=== PATIENT | female | born 1940 | race Caucasian/White ===

== ENCOUNTER → 2018-10-12 | Outpatient (CLI) | payer MEDICARE, SELFPAY ==
--- NOTE | 2018-10-12 14:22 | US_ITS ---
STUDY: ABDOMINAL ULTRASOUND - RIGHT UPPER QUADRANT REASON FOR VISIT: Female, 77 years old. Abdominal pain TECHNIQUE: Ultrasound evaluation of the right upper quadrant was performed with real-time and static keenan-scale imaging. TECHNICAL QUALITY: Adequate. COMPARISON: Renal scintigraphy 06/14/2016 FINDINGS: Liver: The liver measures 10.6 cm. There is normal echogenicity of the liver. The bile ducts are within normal limits. There is hepatic color flow. The direction of portal flow is hepatopetal. There is no demonstrated mass lesion. Gallbladder: Normal distended gallbladder. The gallbladder wall measures 2 mm. There is a negative sonographic Coelho's sign. There is no pericholecystic fluid. There are gallbladder polyps. Common Bile Duct (C.B.D.): The common bile duct measures 4 mm. Pancreas: Normal size of the head, body and tail of the pancreas. There is normal echogenicity of the pancreas. There is no demonstrated pancreatic mass or cyst. Right Kidney: Normal size of the right kidney. The right kidney measures 11.1 cm. Normal renal cortex. The right cortex measures 1.6 cm. There is no demonstrated renal mass or cyst. There is an extra-renal pelvis of the right kidney. There is no distention of the renal calyces. US/Gallbladder IMPRESSION: 1. Cholesterolosis. Electronically Signed: Oscar Tabares MD at 15:41 EDT Tel , Service support ,
== END | disposition home or self-care (01) ==
PROVIDERS: Family Provider Internal Medicine; PCP Internal Medicine; Referring Provider Nurse Practitioner Gerontology; Visit Provider Nurse Practitioner Gerontology
DX: R10.11 Right upper quadrant pain (principal)
CPT/HCPCS: 76705

== ENCOUNTER 2018-10-19 08:23 | Day surgery (SDC) | payer MEDICARE, SELFPAY ==
[2018-10-16 15:39] VITALS: BMI 27.3
--- NOTE | 2018-10-19 08:26 | PCM.HP.BLA ---
History and Physical Date of Admission: 10/19/18 Intake Vital Signs 10/16/18 Body Mass Index (BMI) 27.3 Intake Visit Reasons: RUQ pain Chief Complaint: RUQ pain, second opinion Consultant Internship Required: No Is patient in pain?: No Allergies omnipaque dyes for xrays Allergy (Unknown, Uncoded 10/15/18 14:00) Unknown Medications Lactobacillus rhamnosus GG 10 billion cell-inulin 200 mg capsule cap PO DAILY cap 10/15/18 [History Confirmed 10/16/18] echinacea 400 mg capsule 400 mg PO TID 10/15/18 [History Confirmed 10/16/18] ibuprofen 200 mg tablet 200 mg PO Q6H 10/15/18 [History Confirmed 10/16/18] lutein 40 mg capsule 120 mg PO DAILY cap 10/15/18 [History Confirmed 10/16/18] omega-3 fatty acids 1,000 mg capsule 1,000 mg PO DAILY 10/15/18 [History Confirmed 10/16/18] Is last menstrual period known: No Post menopausal: Yes Patient : No PFSH Medical History (Updated 10/16/18 @ 15:40 by Rufina Lopes) Gallbladder polyp (Acute) Cholesterolosis (Acute) Acid reflux (Acute) Diarrhea (Acute) Nausea & vomiting (Acute) Abdominal pain (Acute) Sleep apnea (Acute) Arthritis (Acute) History of back problems (Acute) Surgical History (Updated 10/16/18 @ 15:40 by Rfuina Lopes) History of colonoscopy (Acute) history excision colon polyps (Acute) History of arthroscopy of left knee (Acute) Family History (Updated 10/16/18 @ 15:38 by Rufina Lopes) Father Cancer prostate Brother Cancer brain Seizures Mother Colon cancer Social History (Updated 10/16/18 @ 16:21 by Kasia Petit MD) Smoking Status: Never smoker alcohol intake: never substance use type: does not use HPI HPI HPI: MARY GALLEGOS, is a 77 F who presents to the office today for right upper quadrant pain, nausea and vomiting. Patient states that on 10/09/2018Friday patient had decreased appetite and had nausea and vomiting and right upper quadrant pain about 8 or 9:00 at night. Patient rated the pain be a 7?8/10 at that time. Patient has been unable to sleep well due to the nausea and pain. Patient states she was previously on PPI however has been off for months as she ran out and has had a other things going on were she did not get it refilled. Patient also states that on Friday she had some liquid stool with red particles she is unsure exactly what the red particles were as they were floating she is not seeing any other blood in her stool but she did have some black stools prior to starting the Pepto-Bismol a week or so ago. Patient has been taking Pepto-Bismol to help with the nausea and vomiting. Patient did just recently start omeprazole 20 mg p.o. twice daily [id number], just started yesterday. Patient currently states her pain is dull but rates it a 5?6/10. Patient does states she is able to drink water and stay hydrated but has nausea and vomiting right after eating and at night. Patient's ultrasound showed a normal gallbladder wall, no pericholecystic fluid, 1 or 2 gallbladder polyps which look to measure less than 2 mm and a common bile duct of 4 mm. HPI HPI HPI: MARY GALLEGOS, is a 77 F who presents to the office today for ROS General General: Yes fatigue; no weight change, appetite, colon cancer, breast cancer or weakness HEENT HEENT: No difficulty swallowing, eye injury, eye surgery, swollen glands or hoarseness Endo Endocrine: No thyroid disease, diabetes mellitus, thyroid cancer, Hair loss, heat intolerance or cold intolerance Skin Skin: No rash or changing moles Breast Breast: No left breast lump, right breast lump, nipple discharge, breast pain, abnormal mammogram, abnormal US or breast enlargement Musc Musculoskeletal: Yes back problems and arthritis; no rheumatoid arthritis, gout or joint pain Cardio Cardiovascular: No murmur, pacemaker, heart disease, atrial fibrillation, high blood pressure, heart attack, heart stent, palpitations, shortness of breat with exertion or chest pain Psych Psychiatric: Yes depression and anxiety; no hearing voices Resp Respiratory: No shortness of breath, Yes sleep apnea, No cough, No COPD, No asthma, No emphysema, No wheezing Gastro Gastrointestinal: Yes abdominal pain, Yes nausea or vomiting, Yes diarrhea, Yes constipation, No blood in stool, Yes acid reflux, No hemorrhoids, No ulcers, Yes gallbladder problem, No black,tarry stools Dell Hematologic: No blood thinners, No blood disorders, No bleeding, No anemia, No blood clots Neuro Neurologic: No weakness Exam Const General: cooperative, comfortable, no acute distress Chest Breast Palpation: No nipple discharge Resp Effort & Inspection: normal respiratory effort Cardio Rate: regular rate Heart Sounds: no murmurs GI Inspection: non-distended, scar (Previous midline incision well healed) Palpation: soft, no guarding, no hernias, tender (Epigastric and right upper quadrant) Assessment & Plan Problems 1. RUQ pain R10.11 2. Epigastric pain R10.13 3. GERD (gastroesophageal reflux disease) K21.9 4. Melena K92.1 Plan I have discussed the above with the patient. I have offered the patient EGD for evaluation. I have explained the risks/benefits of the procedure and described the procedure. I have discussed the risks with the patient, including but not limited to: infection, bleeding, perforation of the GI tract requiring emergency surgery, inability to complete the procedure, injury to any internal organs, complications of anesthesia, etc. - the patient understands and agrees to proceed. I have answered all the patient's questions to the patient's satisfaction and the patient has no further questions. Discussed with patient and her friend who accompanied her that I recommend her continuing the omeprazole 20 mg twice daily or 40 mg daily also discussed that she could try Pepcid 20 mg daily or twice daily for the first 2 days until the omeprazole is more effective. Patient is agreeable plan. Did review the ultrasound of the gallbladder with the patient and her friend and discussed the findings did not warrant cholecystectomy currently as her polyps are less than 2 mm in size. Discussed that the polyps are greater than a centimeter near centimeter cholecystectomy could be done to make sure they were not cancerous. Also patient's symptoms do not really fit with gallbladder even though she does have some right upper quadrant pain she also has epigastric pain on exam and she had a history of black stool prior to taking the Pepto-Bismol which again would question whether she had gastritis or ulcer. Greater than 50% of direct patient contact was spent in counseling or coordination of care. I spent 25 minutes counseling the patient and coordinating care. Kasia Petit M.D. Pager: [phone] [facility] [address] [place] [address], [address] [place] [address] Office: [phone] Orders Orders: EGD Today Plan Detail Follow Up Will schedule EGD Diagnoses RUQ pain R10.11 Epigastric pain R10.13 GERD (gastroesophageal reflux disease) K21.9 Melena K92.1 Time Spent (min) 45 10/16/18 1622 <Electronically signed by Kasia Petit MD> Date Kasia Petit MD
[2018-10-19 08:48] VITALS: BP 159/76; PULSE 74; RESP 14; TEMP 37; O2SAT 99; BMI 26.6
--- NOTE | 2018-10-19 09:45 | EGD_PTH ---
PATIENT: MARY GALLEGOS LOC: EN U#:[id number] AGE/SX: 77/F ROOM: RE10/19/[address]: Dr. Kasia Petit MD : 1940 BED: DIS: 10/19/2018 SPEC #: [id number] RECD: 10/19/18 11:05 STATUS: [place] REJorge Luis #: [id number] HI: 10/19/18 09:[address]: Kasia Petit DEPT: SURGICAL PATHOLOGY RECD BY: Ena Holley ENTERED: 10/19/18 11:48 SP TYPE: EGD BIOPSY OT DR: Dr. Andria Narayan DO Tissues: A - Gastric mucous membrane B - Esophageal mucous membrane Procedures: Special Stain Group II Surgery Specimen Level IV Alcian Blue/PAS (control) HEADER OPERATION: GED ([facility]) PRE-OP DIAGNOSIS: Right upper quad pain TISSUE SUBMITTED: A. Antrum biopsy for H. pylori, B. GE junction biopsy MICROSCOPIC DIAGNOSIS A. Gastric antrum, biopsy: Mild chronic gastritis. See comment. B. Gastroesophageal junction, biopsy: Mild chronic inflammation. No evidence of dysplasia. No evidence of goblet cell metaplasia. See comment. AM:lory 10/20/18 COMMENT A. The results of immunohistochemistry for Helicobacter pylori will be reported separately ([id number]). B. Alcian blue/PAS stain with matched control supports the above diagnosis. MICROSCOPIC DESCRIPTION Slides are reviewed. GROSS DESCRIPTION A - Received in fixative is one container labeled with the patient's name and designated antrum biopsy. The specimen consists of one irregular fragment of light ty soft tissue that measures 0.4 x 0.3 x 0.1 cm. The specimen is totally submitted in one cassette. B - Received in fixative is one container labeled with the patient's name and designated GE junction biopsy. The specimen consists of one irregular fragment of light ty soft tissue that measures 0.2 x 0.2 x 0.1 cm. The specimen is totally submitted in one cassette. / SJ:lory 10/19/18 TC:3 CPT: 54960 x2, 62262
--- NOTE | 2018-10-19 09:45 | IMM_PTH ---
PATIENT: MARY GALLEGOS LOC: EN U#:[id number] AGE/SX: 77/F ROOM: RE10/19/[address]: Dr. Kasia Petit MD : 1940 BED: DIS: 10/19/2018 SPEC #: [id number] RECD: 10/19/18 11:54 STATUS: [place] REQ #: [id number] HI: 10/19/18 09:[address]: Kasia Petit DEPT: IMMUNOHISTOCHEMISTRY RECD BY: Cony Burgos ENTERED: 10/19/18 11:54 SP TYPE: IMMUNO OTHR DR: Dr. Andria Narayan, Tissues: A - Stomach, NOS Procedures: H Pylori (initial) PHYSICIAN & INSTITUTION [place] [address] SPECIMEN INFORMATION: Tissue Source: A - Antrum biopsy Clinical Info: Right upper quadrant pain Specimen Number: [id number] CPT code: 29398 METHODOLOGY: Deparaffinized sections of prefer/formalin-fixed tissue or PAP/DQ stained slides are incubated with monoclonal/polyclonal antibodies/oligonucleotide probes. Localization is made via biotin free immunoperoxidase method. Appropriate controls are performed and reacted as expected. Results on target cell population are indicated in the following table: RESULTS: ANTIBODY / CLONE RESULT Block A H Pylori (polyclonal) negative These tests were developed and their performance characteristics determined by [facility]. They may not have been cleared or approved by the U.S. Food and Drug Administration. The FDA has determined that such clearance or approval is not necessary. INTERPRETATION: A. Antrum biopsy: Negative for Helicobacter pylori organisms. AM:lory 10/20/18
[2018-10-19 09:48] VITALS: BP 142/74; BP 159/76; PULSE 67; RESP 16; TEMP 36.2; O2SAT 98
[2018-10-19 09:50] VITALS: BP 123/64; BP 159/76; PULSE 66; RESP 16; O2SAT 98
--- NOTE | 2018-10-19 09:51 | OP.ENDO_ITS ---
10/19/2018 Andria Narayan [address] [place] [address] [place] [address] Re : Upper GI endoscopy procedure for Ruthie Li Dear Dr. Narayan This procedure was performed on Friday, October 19, 2018. My impressions and recommendations are as follows: Impressions : - 4 cm hiatal hernia. - Z-line irregular, 34 cm from the incisors. Biopsied. - Erythematous mucosa in the antrum. Biopsied. - Normal first portion of the duodenum and second portion of the duodenum. Recommendations : - Await pathology results. - Discharge patient to home. - Continue present medications. - Use Prilosec (omeprazole) 20 mg PO BID. My findings are described in the full procedure note, which is enclosed. If I can be of further assistance, please feel free to contact me at Doctor phone number(s): , Work: . Sincerely, MD Kasia Busby MD 10/19/2018 9:51:32 AM This report has been signed electronically.
[2018-10-19 09:55] VITALS: BP 120/71; BP 159/76; PULSE 78; RESP 16; O2SAT 98
[2018-10-19 10:00] VITALS: BP 112/61; BP 159/76; PULSE 68; RESP 16; O2SAT 97
[2018-10-19 10:08] VITALS: BP 159/76
== END 2018-10-19 10:40 | disposition home or self-care (01) ==
LOC: EN 08:24 → AC 08:26
PROVIDERS: Family Provider Internal Medicine; PCP Internal Medicine; Referring Provider Internal Medicine; Visit Provider Surgery
PROC: 0DJ08ZZ Inspection of Upper Intestinal Tract, Via Natural or Artificial Opening Endoscopic (ICD-10-PCS; CPT 43235; principal; 2018-10-19 09:40)
DX: K29.50 Unspecified chronic gastritis without bleeding (principal); K44.9 Diaphragmatic hernia without obstruction or gangrene; K21.9 Gastro-esophageal reflux disease without esophagitis; M19.90 Unspecified osteoarthritis, unspecified site; G47.30 Sleep apnea, unspecified; Z87.19 Personal history of other diseases of the digestive system; Z78.0 Asymptomatic menopausal state
CPT/HCPCS: 43239; 88305; 88313; 88342; J7120

== ENCOUNTER → 2018-10-26 | Outpatient (CLI) | payer MEDICARE, SELFPAY ==
[2018-10-19 08:48] VITALS: BMI 26.6
--- NOTE | 2018-10-26 11:13 | NM_ITS ---
CLINICAL: 77-year-old female with reported history of abdominal pain and nausea. RADIONUCLIDE HEPATOBILIARY SCINTIGRAPHY COMPARISON: Abdominal ultrasound report 10/12/2018 FINDINGS: Following the intravenous administration of 5.6 mCi of 99m Tc Mebrofenin, hepatobiliary images reveal: 1. Relatively prompt and homogeneous radiopharmaceutical concentration is noted by the liver parenchyma. The left lobe appears prominent in size. No parenchymal defects are identified. 2. Gallbladder activity is identified at 10 minutes post radiopharmaceutical administration. 3. Small intestinal tract is not visualized during 60 minutes of pre-CCK sequential imaging. Small bowel activity is identified following the administration of cholecystokinin. 4. Washout of the radiopharmaceutical by the hepatic parenchyma appears qualitatively normal. Cholecystokinin (0.02 ug/kg) was administered intravenously over a 30-minute period. The post CCK gallbladder ejection fraction calculated at 20 minutes following Cholecystokinin administration was noted to be 16.0 % (normal greater than 35%). There is refilling of the gallbladder identified following CCK provision. NH/Hepatobilliary Img w/Pharm Int IMPRESSION: 1. ABNORMAL 99m Tc Mebrofenin hepatobiliary imaging examination with Cholecystokinin. A. A gallbladder ejection fraction calculated to be less than 35% following the administration of Cholecystokinin is consistent with the presence of functional hepatobiliary disease (gallbladder and/or sphincter of Oddi dyskinesia) and/or organic hepatobiliary disease (chronic acalculous cholecystitis and/or cystic duct syndrome) in patients with intermediate to high pretest likelihoods of hepatobiliary illness. (Oniel Pak et al, Journal of Nuclear Medicine 32:1695, 1990). B. 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 Correlation with Sphincter of Oddi manometry is recommended. Electronically Signed: Oscar Valladares DO at 22:00 EDT Tel , Service support ,
== END | disposition home or self-care (01) ==
LOC: NM 11:12
PROVIDERS: Family Provider Internal Medicine; PCP Internal Medicine; Referring Provider Surgery; Visit Provider Surgery
DX: R10.9 Unspecified abdominal pain (principal); R11.2 Nausea with vomiting, unspecified
CPT/HCPCS: 78227; A9537; J2805

== ENCOUNTER 2018-11-11 11:06 | Day surgery (SDC) | payer MEDICARE, SELFPAY ==
--- NOTE | 2018-11-02 03:31 | HP_ITS ---
Intake Vital Signs 11/02/18 Body Mass Index (BMI) 26.6 11/02/18 Height 5 ft 5 in 11/02/18 Weight: 165 lb 11/02/18 Body Mass Index (BMI) 27.4 11/02/18 Blood Pressure 173/86 H 11/02/18 Blood Pressure Location Rt brachial 11/02/18 Respiratory Rate 16 11/02/18 Pulse Rate 64 11/02/18 Pulse Source Monitor 11/02/18 Temperature 98.2 F 11/02/18 Temperature Source Oral 11/02/18 Pulse Ox 97 11/02/18 Oxygen Delivery Method room air Intake Visit Reasons: F/U Test Results HIDA Scan Chief Complaint: RUQ pain, second opinion Robotic Machine Operator Required: No Is patient in pain?: No Allergies codeine Adverse Reaction (Verified 11/02/18 14:47) Nausea/Vom/Diarrhea omnipaque dyes for xrays Allergy (Intermediate, Uncoded 11/02/18 14:47) Hives Medications echinacea 400 mg capsule 400 mg PO PRN PRN 10/15/18 [History Confirmed 11/02/18] ibuprofen 200 mg tablet 200 mg PO PRN PRN 10/15/18 [History Confirmed 11/02/18] lutein 40 mg capsule 120 mg PO DAILY cap 10/15/18 [History Confirmed 11/02/18] omega-3 fatty acids 1,000 mg capsule 1,000 mg PO DAILY 10/15/18 [History Confirmed 11/02/18] Calcium Carb/Vitamin D3/Vit K1 [Calcium + D Soft Chewable Tab] 1 ea PO DAILY 10/19/18 [History Confirmed 11/02/18] Multivitamin with Minerals [Multiple Vitamin] 1 ea PO DAILY 10/19/18 [History Confirmed 11/02/18] Omeprazole 40 mg PO DAILY 10/19/18 [History Confirmed 11/02/18] dicyclomine 20 mg tablet 20 mg PO BID #28 tab 10/21/18 [Rx Confirmed 11/02/18] PFSH Medical History Gallbladder polyp (Acute) Cholesterolosis (Acute) Acid reflux (Acute) Diarrhea (Acute) Nausea & vomiting (Acute) Abdominal pain (Acute) Sleep apnea (Acute) Arthritis (Acute) History of back problems (Acute) Surgical History History of colonoscopy (Acute) history excision colon polyps (Acute) History of arthroscopy of left knee (Acute) 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 Patient had an abnormal HIDA scan with ejection fraction 16% (normal 35% or greater) and there is also some refilling of the gallbladder question if there could be an issue with sphincter of Oddi as well. Patient states she still does get some nausea as well as right upper quadrant pain after eating she states the pain can be a 5?6/10 can be crampy she does occasionally also have vomiting she did vomit last Friday. Patient states she is able to eat some stuff without issues and others does cause the discomfort and nausea. Patient states the Bentyl has been helping somewhat this and she is also been taking the omeprazole as well. ROS General General: Yes fatigue; no weight change, colon cancer, breast cancer or weakness HEENT HEENT: No difficulty swallowing, eye injury, eye surgery, swollen glands or hoarseness Endo Endocrine: No thyroid disease, diabetes mellitus, thyroid cancer, Hair loss, heat intolerance or cold intolerance Skin Skin: No rash or changing moles Musc Musculoskeletal: Yes back problems and arthritis; no rheumatoid arthritis, gout or joint pain Cardio Cardiovascular: No murmur, pacemaker, heart disease, atrial fibrillation, high blood pressure, heart attack, heart stent, palpitations, shortness of breat with exertion or chest pain Psych Psychiatric: Yes depression and anxiety; no hearing voices Resp Respiratory: No shortness of breath, Yes sleep apnea, No cough, No COPD, No asthma, No emphysema, No wheezing Gastro Gastrointestinal: Yes abdominal pain, Yes nausea or vomiting, Yes diarrhea, Yes constipation, No blood in stool, Yes acid reflux, No hemorrhoids, No ulcers, Yes gallbladder problem, No black,tarry stools Dell Hematologic: No blood thinners, No blood disorders, No bleeding, No anemia, No blood clots Neuro Neurologic: No weakness Exam Const General: cooperative, comfortable, no acute distress Resp Effort & Inspection: normal respiratory effort Cardio Rate: regular rate Heart Sounds: no murmurs GI Inspection: non-distended Palpation: soft, no guarding, tender (RUQ/epigastric/LUQ>RLQ, no PS) Psych Affect: normal affect Assessment & Plan Problems 1. Biliary dyskinesia K82.8 2. GERD (gastroesophageal reflux disease) K21.9 3. RUQ pain R10.11 4. Epigastric pain R10.13 Plan Did review patient's HIDA scan with her showed ejection fraction of 16% which is lower than the normal of 35%. Also discussed that there could be some questionable sphincter of oddi dysfunction as well; however, since she does have an abnormal ejection fraction it is reasonable to take out the gallbladder. Discussed with patient I cannot guarantee that this will improve all of her symptoms. She does state that the Bentyl does seem to help some with the discomfort and nausea as well as the omeprazole. Reviewed the anatomy with the patient and discussed the procedure: laparoscopic cholecystectomy with cholangiograms, possible open. Discussed that due to her previous midline incision would need to enter into the abdomen using the Visiport technique in the right upper quadrant in the case may take a little bit longer due to previous adhesions. Review risks including but not limited to bleeding, infection, hernia, bile leak, retained gallstones requiring another procedure ERCP- Endoscopic Retrograde Cholangiopancreatography, injury to another organ (bile ducts, common bile duct, small bowel, etc.) which may require transfer to tertiary facility and conversion to an open procedure. All questions were answered. Kasia Petit M.D. Pager: [phone] [facility] [address] [place] [address], [facility], [address] [place] [id number] Office: [phone] Plan Detail Follow Up will schedule lap malou Coding Level of Care Code Off vis,est,level 3 Diagnoses Biliary dyskinesia K82.8 GERD (gastroesophageal reflux disease) K21.9 RUQ pain R10.11 Epigastric pain R10.13 07/29/19 1532 <Electronically signed by Kasia Sethi am, MD> Date _ Kasia Petit MD I have re-examined the patient. There are no clinical changes since date of exam.
[2018-11-02 14:47] VITALS: BMI 26.6
[2018-11-05 11:50] VITALS: BP 168/77; PULSE 65; RESP 14; TEMP 36.9; O2SAT 99; BMI 26.7
[2018-11-05 12:07] LABS: Hematocrit 38.2 % (37-47); Hemoglobin 12.3 g/dL (12.0-15.0); Mean Corp Hgb Conc 32.2 g/dL (32-36); Mean Corpuscular Hgb 29.1 pg (27.0-32.0); Mean Corpuscular Volume 90.3 fL (81-99); Mean Platelet Vol. 10.3 fl (6.2-12.0); Platelet Count 213 K/mm3 (150-450); RBC Distribution Width CV 13.6 % (11.6-14.6); RBC Distribution Width SD 45.2 fl (35.1-43.9); Red Blood Count 4.23 M/mm3 (4.2-5.4); White Blood Count 5.7 K/mm3 (4.4-11.0)
[2018-11-05 12:13] LABS: AST(SGOT) 28 U/L (15-37); Alanine Aminotransfer ALT/SGPT 25 U/L (13-56); Albumin, Serum 3.9 g/dL (3.2-5.0); Alkaline Phosphatase 82 U/L (45-117); Bilirubin, Direct 0.13 mg/dL (0.00-0.30); Globulin 3.8 g/dL (2.2-4.2); Protein, Total 7.7 g/dL (6.4-8.2)
--- NOTE | 2018-11-05 13:41 | PN_ITS ---
Progress Note Preoperative EKG did show small ischemia with T wave inversion, unable to locate another EKG when patient previously had her open sigmoidectomy in 2017 at [facility] only had a rhythm strip online. Patient did the meantime go to [facility] question whether she was having a heart attack they did do a cardiac work-up there EKG did show some ST depression but no T wave inversion. Discussed with family that we will avoid plan to cancel surgery today for cardiac work-up. Patient denies any chest pain; however her abdominal pain has not always been consistent, patient is on omeprazole which initially states that help and then she was having some crampy abdominal pain after eating so she was also placed on Bentyl which again she states helped some. But her HIDA did show ejection fraction of 16%. Did place a consult to cardiology Dr. Anne as the patient would like to talk to them today if possible, he was agreeable to see her in [place]. Did okay to be discharged per surgery standpoint, if cardiology agreeable.
--- NOTE | 2018-11-05 15:35 | CON.PCM_ITS ---
Problem List (1) Abnormal EKG Status: Acute Reason for Consult Date of Consultation: 11/05/18 History of Present Illness: The patient is a 78 year old F [coming to the hospital for elective cholecystectomy. Preop EKG was abnormal and cardiology consult was requested. Patient denies any chest pain, shortness of breath etc. She does get heartburn which begins with discomfort in the right upper quadrant after she eats. She is physically very active and can easily walk 2 miles without any problems. She does not get any discomfort, shortness of breath etc she walks. Review of systems: All systems reviewed. All else is negative except that in th e HPI] Past Medical History Allergies/Adverse Reactions: Allergies iohexol Allergy (Verified 11/04/18 15:01) Hives codeine Adverse Reaction (Verified 11/02/18 14:47) Nausea/Vom/Diarrhea omnipaque dyes for xrays Allergy (Intermediate, Uncoded 11/05/18 11:50) Hives Home Medications: Ambulatory Orders Medication Instructions Recorded echinacea 400 mg capsule 400 mg PO PRN PRN 10/15/18 ibuprofen 200 mg tablet 200 mg PO PRN PRN 10/15/18 lutein 40 mg capsule 120 mg PO DAILY cap 10/15/18 omega-3 fatty acids 1,000 mg 1,000 mg PO DAILY 10/15/18 capsule Calcium Carb/Vitamin D3/Vit K1 1 ea PO DAILY 10/19/18 [Calcium + D Soft Chewable Tab] Multivitamin with Minerals 1 ea PO DAILY 10/19/18 [Multiple Vitamin] Omeprazole 40 mg PO DAILY 10/19/18 dicyclomine 20 mg tablet 20 mg PO BID #28 tab 10/21/18 Sertraline HCl [Zoloft] 50 mg PO DAILY 11/04/18 Past Medical History (Chronic Problems): Chronic Problems (Last Updated 11/05/18 @ 11:55 by Kasia Petit MD) History of open sigmoidectomy (Chronic) - *Family History Maternal Family History: Family History (Last Reviewed 11/02/18 @ 14:46 by Gerri Obando) Father Cancer Brother Cancer Seizures Mother Colon cancer History Items: Cancer Smoking Status: Never smoker Objective: Vital Signs Temp Pulse Resp BP Pulse Ox 98.4 F 65 14 168/77 H 99 11/05/18 11:50 11/05/18 11:50 11/05/18 11:50 11/05/18 11:50 11/05/18 11:50 Oxygen Delivery Method Room Air Weight: 155 lb 13.869 oz Body Mass Index (BMI) 26.7 General: Awake, Alert, Oriented x 3 HEENT: PERRL, EOMI, Sclera Non Icteric Neck: Supple, Good ROM, No Lymph Node Enlargement Lungs: Clear to auscultation Cardiovascular: Regular Rhythm, Normal S1, Normal S2, No Murmurs, No Rubs, No Gallops Abdomen: Soft Skin: No Rashes Psych/Mental Status: Appropriate 11/05/18 11:45: WBC 5.7, RBC 4.23, Hgb 12.3, Hct 38.2, MCV 90.3, MCH 29.1, MCHC 32.2, Plt Count 213, MPV 10.3 11/05/18 11:45: Total Bilirubin 0.50, Direct Bilirubin 0.13 11/05/18 11:45: Troponin I < 0.015 Rhythm: EKG: ECHO: Stress Test: Cardiac Cath: PCI: CT Surgery: Holter monitor: EPS: PPM: CXR: Chest CT Scan: Assessment/Plan 1. Abnormal EKG: Patient's EKG reveals sinus rhythm with Q waves in the inferior leads and nonspecific ST-T changes. An EKG from April 2017 also reveals a Q waves in the inferior leads with nonspecific ST-T changes. Patient is asymptomatic from a cardiac standpoint. No further work-up is required for this at this time. 2. Preoperative cardiac evaluation: Patient has very good functional capacity. She has minor risk factors for perioperative cardiac complications. She does not need any further preoperative cardiac work-up. She is at low risk for perioperative cardiac complications from cholecystectomy.
[2018-11-11 11:22] VITALS: BP 160/86; PULSE 75; RESP 18; TEMP 36.8; O2SAT 97; BMI 25.7
--- NOTE | 2018-11-11 11:28 | HP.PCM_ITS ---
History and Physical Date of Admission: 11/11/18 Intake Vital Signs 11/02/18 Body Mass Index (BMI) 26.6 11/02/18 Height 5 ft 5 in 11/02/18 Weight: 165 lb 11/02/18 Body Mass Index (BMI) 27.4 11/02/18 Blood Pressure 173/86 H 11/02/18 Blood Pressure Location Rt brachial 11/02/18 Respiratory Rate 16 11/02/18 Pulse Rate 64 11/02/18 Pulse Source Monitor 11/02/18 Temperature 98.2 F 11/02/18 Temperature Source Oral 11/02/18 Pulse Ox 97 11/02/18 Oxygen Delivery Method room air Intake Visit Reasons: F/U Test Results HIDA Scan Chief Complaint: RUQ pain, second opinion Turning Lathe Tender Required: No Is patient in pain?: No Allergies codeine Adverse Reaction (Verified 11/02/18 14:47) Nausea/Vom/Diarrhea omnipaque dyes for xrays Allergy (Intermediate, Uncoded 11/02/18 14:47) Hives Medications echinacea 400 mg capsule 400 mg PO PRN PRN 10/15/18 [History Confirmed 11/02/18] ibuprofen 200 mg tablet 200 mg PO PRN PRN 10/15/18 [History Confirmed 11/02/18] lutein 40 mg capsule 120 mg PO DAILY cap 10/15/18 [History Confirmed 11/02/18] omega-3 fatty acids 1,000 mg capsule 1,000 mg PO DAILY 10/15/18 [History Confirmed 11/02/18] Calcium Carb/Vitamin D3/Vit K1 [Calcium + D Soft Chewable Tab] 1 ea PO DAILY 0 10/19/18 [History Confirmed 11/02/18] Multivitamin with Minerals [Multiple Vitamin] 1 ea PO DAILY 10/19/18 [History Confirmed 11/02/18] Omeprazole 40 mg PO DAILY 10/19/18 [History Confirmed 11/02/18] dicyclomine 20 mg tablet 20 mg PO BID #28 tab 10/21/18 [Rx Confirmed 11/02/18] PFSH Medical History Gallbladder polyp (Acute) Cholesterolosis (Acute) Acid reflux (Acute) Diarrhea (Acute) Nausea & vomiting (Acute) Abdominal pain (Acute) Sleep apnea (Acute) Arthritis (Acute) History of back problems (Acute) Surgical History History of colonoscopy (Acute) history excision colon polyps (Acute) History of arthroscopy of left knee (Acute) 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 Patient had an abnormal HIDA scan with ejection fraction 16% (normal 35% or greater) and there is also some refilling of the gallbladder question if there could be an issue with sphincter of Oddi as well. Patient states she still does get some nausea as well as right upper quadrant pain after eating she states the pain can be a 5?6/10 can be crampy she does occasionally also have vomiting she did vomit last Friday. Patient states she is able to eat some stuff without issues and others does cause the discomfort and nausea. Patient states the Bentyl has been helping somewhat this and she is also been taking the omeprazole as well. ROS General General: Yes fatigue; no weight change, colon cancer, breast cancer or weakness HEENT HEENT: No difficulty swallowing, eye injury, eye surgery, swollen glands or hoarseness Endo Endocrine: No thyroid disease, diabetes mellitus, thyroid cancer, Hair loss, heat intolerance or cold intolerance Skin Skin: No rash or changing moles Musc Musculoskeletal: Yes back problems and arthritis; no rheumatoid arthritis, gout or joint pain Cardio Cardiovascular: No murmur, pacemaker, heart disease, atrial fibrillation, high blood pressure, heart attack, heart stent, palpitations, shortness of breat with exertion or chest pain Psych Psychiatric: Yes depression and anxiety; no hearing voices Resp Respiratory: No shortness of breath, Yes sleep apnea, No cough, No COPD, No asthma, No emphysema, No wheezing Gastro Gastrointestinal: Yes abdominal pain, Yes nausea or vomiting, Yes diarrhea, Yes constipation, No blood in stool, Yes acid reflux, No hemorrhoids, No ulcers, Yes gallbladder problem, No black,tarry stools Dell Hematologic: No blood thinners, No blood disorders, No bleeding, No anemia, No blood clots Neuro Neurologic: No weakness Exam Const General: cooperative, comfortable, no acute distress Resp Effort & Inspection: normal respiratory effort Cardio Rate: regular rate Heart Sounds: no murmurs GI Inspection: non-distended Palpation: soft, no guarding, tender (RUQ/epigastric/LUQ>RLQ, no PS) Psych Affect: normal affect Assessment & Plan Problems 1. Biliary dyskinesia K82.8 2. GERD (gastroesophageal reflux disease) K21.9 3. RUQ pain R10.11 4. Epigastric pain R10.13 Plan Did review patient's HIDA scan with her showed ejection fraction of 16% which is lower than the normal of 35%. Also discussed that there could be some qu estionable sphincter of oddi dysfunction as well; however, since she does have an abnormal ejection fraction it is reasonable to take out the gallbladder. Discussed with patient I cannot guarantee that this will improve all of her symptoms. She does state that the Bentyl does seem to help some with the discomfort and nausea as well as the omeprazole. Reviewed the anatomy with the patient and discussed the procedure: laparoscopic cholecystectomy with cholangiograms, possible open. Discussed that due to her previous midline incision would need to enter into the abdomen using the Visiport technique in the right upper quadrant in the case may take a little bit longer due to previous adhesions. Review risks including but not limited to bleeding, infection, hernia, bile leak, retained gallstones requiring another procedure ERCP- Endoscopic Retrograde Cholangiopancreatography, injury to another organ (bile ducts, common bile duct, small bowel, etc.) which may require transfer to tertiary facility and conversion to an open procedure. All questions were answered. Kasia Petit M.D. Pager: [phone] [facility] [address] [place] [address], [address] [place] [id number] Office: [phone] Plan Detail Follow Up will schedule lap malou Coding Level of Care Code Off vis,est,level 3 Diagnoses Biliary dyskinesia K82.8 GERD (gastroesophageal reflux disease) K21.9 RUQ pain R10.11 Epigastric pain R10.13 11/02/18 1532 <Electronically signed by Kasia Sethi am, MD> Date _ Kasia Petit MD I have re-examined the patient. There are no clinical changes since date of exam. Addendum: surgery was cancelled due to abnormal EKG, cardiology c/s, will reschedule surgery 11/05/18 1153 <Electronically signed by Kasia Sethi am, MD> Date: Time: __ Kasia Petit MD I have examined the patient the following changes are noted: Cardiology saw pt and didn't recommend any additional w/u and said ok to proceed with tommy westfall from their standpoint. Patient states she still does have some right-sided abdominal pain after eating discussed with patient she still may have an issue with sphincter of oddi even after surgery so this surgery may not take away all of her discomfort she may still need Bentyl. Patient expressed understanding no no further question at this time.
[2018-11-11] MEDS: Cefazolin 2 GM in 0.9% Normal Saline 100 ML IV (11:58)
--- NOTE | 2018-11-11 12:00 | RAD_ITS ---
STUDY: INTRAOPERATIVE CHOLANGIOGRAM. REASON FOR EXAM: Female, 78 years old. Laparoscopic cholecystectomy. FLUOROSCOPY TIME (if supplied): (0:07) minutes/seconds. TECHNIQUE: An intraoperative quadrant was performed by the surgeon. Imaging was submitted. COMPARISON: None. FINDINGS: The intrahepatic ducts are unremarkable. The common bile duct is unremarkable as well. No intraluminal filling defect is seen. There is free flow of contrast into the duodenum. RAD/Cholangiogram/ O R,Initial IMPRESSION: Unremarkable intraoperative cholangiogram. Electronically Signed: Kayden Cortez, at 13:39 EDT , Service support ,
--- NOTE | 2018-11-11 12:35 | GALL_PTH ---
PATIENT: MARY GALLEGOS [place] [facility] [id number] AGE/SX: 78/F ROOM: RE11/11/[address]: Dr. Kasia Petit MD : 1940 BED: DIS: 11/11/2018 SPEC #: [id number] RECD: 11/11/18 16:36 STATUS: [place] REJorge Luis #: [id number] HI: 11/11/18 12:[address]: Kasia Petit DEPT: SURGICAL PATHOLOGY RECD BY: Deuce Powers ENTERED: 11/12/18 08:00 SP TYPE: ANAND OLGUIN DR: Dr. Andria Narayan DO Tissues: Gallbladder, NOS Procedures: Surgery Specimen Level III HEADER OPERATION: Laparoscopic cholecystectomy PRE-OP DIAGNOSIS: Biliary dyskinesia TISSUE SUBMITTED: Gallbladder MICROSCOPIC DIAGNOSIS Gallbladder, cholecystectomy: Mild chronic cholecystitis and focal minimal cholesterolosis. No stones are identified in the container or in the gallbladder. SJ:lory 11/13/18 MICROSCOPIC DESCRIPTION Slides are reviewed. GROSS DESCRIPTION Received is one container labeled with the patient's name and designated gallbladder. The specimen consists of a gallbladder measuring 8.5 cm in length and up to 3 cm in diameter. The external surface is pink-ty, smooth and glistening for the most part. Focally it is granular, hemorrhagic and contains cautery artifact. The gallbladder contains green-yellow mucoid bile. No stones are identified in the container or in the gallbladder. The mucosa is bile-stained and without any mass lesions. The gallbladder wall measures up to 0.2 cm in thickness. Corn Husker Machine Operator sections from the gallbladder and the cystic duct are submitted in one cassette. / SJ:lory 11/12/18 TC:3 CPT: 53501
[2018-11-11] MEDS: Bupivacaine Mpf 0.5% 30 ML VIAL (13:14)
--- NOTE | 2018-11-11 13:15 | PCM.OPRPT ---
Report of Operation Date of Procedure: 11/11/18 Pre-Operative Diagnosis: Biliary dyskinesia Post-Operative Diagnosis: Same Surgery/Procedure Performed:: Laparoscopic cholecystectomy with cholangiogram dipper machine operator: Velma Cheney Type of Anesthesia:: General/Supplemental Anesthesiologist: Chucho Villa Special Medications: Ancef 2 g IV x1 Specimen's removed: Gallbladder Estimated Blood Loss (mL): < 10 cc Fluids Replaced: 1150 Description of Procedure: Indications this is a 78 year-old female who had right upper quadrant pain normal gallbladder ultrasound except for some 2 mm polyps, abnormal HIDA scan at 16% ejection fraction, normal common bile duct on ultrasound and normal LFTs. Laparoscopic cholecystectomy was elected. Description procedure: The patient was placed on operating table in supine position. General Anesthesia was induced. A timeout was completed verifying correct patient, procedure, site, position and special equipment prior to beginning procedure. The abdomen was prepped and draped in usual sterile fashion. Incision was made in the right upper quadrant 15 blade scalpel. The abdomen is introducing the Optiview technique. Entry into the peritoneum was confirmed visually. The abdomen was insufflated with carbon dioxide to a pressure of 12-15 mmHg. Patient tolerated insufflation well. The laparoscope was then inserted and abdomen inspected. No injuries from initial trocar placement were noted. Additional trochars were then inserted in the following locations Jacques trocar was placed supraumbilically where there were no adhesions, 5 mm trocar in the epigastrium and 5 mm trochars along the right lateral costal margin. The abdomen was inspected no abnormalities were found except for lower midline adhesions from previous surgery. The table is placed in reverse Trendelenburg position with the right side up. The adhesions between the gallbladder and omentum were lysed sharply. The dome of the gallbladder was grasped with atraumatic grasper passed through the lateral port and retracted over the dome of the liver. Infundibulum was then grasped with atraumatic grasper through the midclavicular port and retracted to the right lower quadrant. This maneuver exposed Calot's triangle. The peritoneum overlying the gallbladder infundibulum was then incised and cystic duct and artery identified and circumferentially dissected. Handy catheter was used for cholangiograms. Cholangiogram showed good filling into the duodenum as well as into the bile ducts with no filling defect. The cystic duct and artery were then doubly clipped and divided close to the gallbladder. The gallbladder then dissected from its peritoneal attachments by electrocautery. Hemostasis was checked and the gallbladder and contained stones were removed using the endoscopic retrieval bag through the umbilical port. The gallbladder is passed off table as specimen. The gallbladder fossa was copiously irrigated with saline and hemostasis obtained. There is no evidence of bleeding from the gallbladder fossa or cystic artery leakage of bile from the cystic duct stump. Secondary trochars removed under direct vision. No bleeding was noted the trocar sites. The laparoscope was withdrawn and umbilical trocar removed. The abdomen was allowed to collapse. The fascia of the 12 mm trocar was closed with a [id number] 0 Vicryl suture. The skin was closed with sutures of 4-0 Monocryl and Steri-Strips. The patient was extubated. The patient tolerated procedure well and was taken to the postanesthesia care unit in stable condition. - Complications None
--- NOTE | 2018-11-11 13:22 | PCM.DC.GB ---
Discharge Diet: Light diet - advance as tolerated Discharge Activity: May not drive while taking narcotic pain medications. May shower in (days): 1 Lifting Restrictions: Lifting greater than 20 pounds x 3 weeks Call your doctor if your incision/area has: Continuous Slow Oozing, Sudden Increased Bleeding, Increased Pain/ Swelling, Increased Redness, Foul Smelling Discharge, Swelling at the incision site Call your doctor if you observe: Fever of 101 or Higher Remove Dressing in (days):: 1 Additional Instructions: Okay to take ibuprofen 400-600 mg PO q6hr PRN along with the percocet. Avoid Tylenol since there is already Tylenol in the percocet. Take all pain meds with food. percocet can cause constipation recommend taking daily stool softener (i.e. Colace/docusate) while taking the pain meds. Recommend starting some MiraLAX in 1 to 2 days if no bowel movement. If still no bowel movement following day recommend taking magnesium citrate half the bottle and waiting 4-6 hours if still no results take the other half the bottle. Allergies/Adverse Reactions: Allergies iohexol Allergy (Verified 11/11/18 11:21) Hives codeine Adverse Reaction (Verified 11/11/18 11:21) Nausea/Vom/Diarrhea omnipaque dyes for xrays Allergy (Intermediate, Uncoded 11/11/18 11:21) Hives Medications to take at Discharge echinacea 400 mg capsule 400 mg PO PRN PRN 10/15/18 ibuprofen 200 mg tablet 200 mg PO PRN PRN 10/15/18 lutein 40 mg capsule 120 mg PO DAILY cap 10/15/18 omega-3 fatty acids 1,000 mg capsule 1,000 mg PO DAILY 10/15/18 Calcium Carb/Vitamin D3/Vit K1 [Calcium + D Soft Chewable Tab] 1 ea PO DAILY 10/19/18 Multivitamin with Minerals [Multiple Vitamin] 1 ea PO DAILY 10/19/18 Omeprazole 40 mg PO DAILY 10/19/18 Sertraline HCl [Zoloft] 50 mg PO DAILY 11/04/18 dicyclomine 20 mg tablet 20 mg PO BID #28 tab 11/09/18 Oxycodone HCl/Acetaminophen [Percocet 5/325] 1 - 2 tablet PO Q6H PRN PRN 3 Days #15 tablet 11/11/18 The following prescriptions were given: Oxycodone HCl/Acetaminophen [Percocet 5/325] 1 - 2 tablet PO Q6H PRN PRN 3 Days #15 tablet PRN Reason: Pain Transmission Status: Sent to [facility] Primary Care Physician: Andira Narayan DO [Primary Care Provider] - Test Results: Test results from this visit will be discussed in further detail at your follow-up appointment, if applicable. Please Follow Up With: Kasia Petit MD - After 5 PM and on the weekends call [phone] with any concerns When: Call the office for follow-up appointment in 2 weeks. Proposed Discharge Date: 11/11/18
[2018-11-11 13:30] VITALS: BP 160/86; BP 163/77; PULSE 85; RESP 17; TEMP 36.6; O2SAT 97
[2018-11-11 13:45] VITALS: BP 146/84; BP 160/86; PULSE 63; RESP 16; O2SAT 100
[2018-11-11 13:59] VITALS: BP 143/64; BP 160/86; PULSE 58; RESP 16; O2SAT 100
[2018-11-11 14:14] VITALS: BP 147/67; BP 160/86; PULSE 59; RESP 17; TEMP 36.6; O2SAT 98
[2018-11-11 15:47] VITALS: BP 160/86
== END 2018-11-11 15:54 | disposition home or self-care (01) ==
LOC: SDC 11:06 → AC 11:07
PROVIDERS: Anesthesiology; Family Provider Internal Medicine; PCP Internal Medicine; Referring Provider Surgery; Visit Provider Surgery
PROC: (CPT 47610; principal; 2018-11-11 12:15)
DX: K81.1 Chronic cholecystitis (principal); K21.9 Gastro-esophageal reflux disease without esophagitis; F32.9 Major depressive disorder, single episode, unspecified; Z79.899 Other long term (current) drug therapy; G47.30 Sleep apnea, unspecified; R94.31 Abnormal electrocardiogram [ECG] [EKG]; F41.9 Anxiety disorder, unspecified
CPT/HCPCS: 47563; 36415; 74300; 76000; 80076; 84484; 85027; 88304; 93005; J7120; J1610; J2405

== ENCOUNTER → 2019-01-13 14:48 | Outpatient (CLI) | payer MEDICARE, SELFPAY ==
[2019-01-13 14:16] VITALS: BMI 25.7
[2019-01-13 16:06] LABS: AST(SGOT) 22 U/L (15-37); Alanine Aminotransfer ALT/SGPT 21 U/L (13-56); Albumin, Serum 3.8 g/dL (3.2-5.0); Alkaline Phosphatase 89 U/L (45-117); Anion Gap 3 (5-15); BUN 14 mg/dL (7-18); BUN/Creat Ratio 14.2 RATIO (10-20); Bilirubin, Direct 0.14 mg/dL (0.00-0.30); Calcium,Total 9.2 mg/dL (8.5-10.1); Chloride 104 mmol/L (98-107); Creatinine, Serum 0.99 mg/dL (0.55-1.02); EST Glomerular Filtration Rate 58 mL/min (>60); Est Glom Filt Rate - Afr Amer 70 mL/min (>60); Globulin 3.8 g/dL (2.2-4.2); Glucose 87 mg/dL (74-106); Protein, Total 7.6 g/dL (6.4-8.2); Sodium Level 137 mmol/L (136-145)
== END ==
PROVIDERS: Family Provider Internal Medicine; PCP Internal Medicine; Referring Provider Surgery; Visit Provider Surgery
DX: R11.2 Nausea with vomiting, unspecified (principal); R10.9 Unspecified abdominal pain; Z90.49 Acquired absence of other specified parts of digestive tract
CPT/HCPCS: 36415; 80048; 80076

== ENCOUNTER → 2022-11-20 | Outpatient (CLI) | payer MEDICARE, SELFPAY ==
[2022-11-20 12:19] LABS: Absolute Lymphocyte Count 1.88 X10^3/uL (0.83-4.51); Absolute Neutrophil Count 3.8 X10^3/uL (2.0-7.7); Basophil# 0.04 X10^3/uL; Basophil% 0.6 % (0-1); Eosinophil# 0.08 X10^3/uL; Eosinophils% 1.3 % (0-5); Hemoglobin 12.4 g/dL (12.0-15.0); Lymphocyte # 1.88 X10^3/ul (0.83-4.51); Lymphocyte % 29.8 % (19-41); Mean Corp Hgb Conc 31.8 g/dL (32-36); Mean Corpuscular Hgb 29.8 pg (27.0-32.0); Mean Corpuscular Volume 93.8 fL (81-99); Mean Platelet Vol. 10.9 fl (6.2-12.0); Monocyte# 0.48 X10^3/uL; Monocyte% 7.6 % (0-10); NRBC Flagged by Analyzer 0 % (0-5); Neutrophil # 3.81 X10^3/uL (2.7-7.7); Neutrophil % 60.5 % (47-70); Platelet Count 233 K/mm3 (150-450); RBC Distribution Width CV 13.2 % (11.6-14.6); RBC Distribution Width SD 45.2 fl (35.1-43.9); Red Blood Count 4.16 M/mm3 (4.2-5.4); White Blood Count 6.3 K/mm3 (4.4-11.0)
[2022-11-20 12:38] LABS: AST(SGOT) 22 U/L (15-37); Alanine Aminotransfer ALT/SGPT 21 U/L (13-56); Albumin, Serum 3.6 g/dL (3.2-5.0); Alkaline Phosphatase 70 U/L (45-117); Anion Gap 0 (5-15); BUN 13 mg/dL (7-18); BUN/Creat Ratio 15.5 RATIO (10-20); Calcium,Total 9.1 mg/dL (8.5-10.1); Chloride 109 mmol/L (98-107); Creatinine, Serum 0.84 mg/dL (0.55-1.02); EST Glomerular Filtration Rate 69 mL/min (>60); Est Glom Filt Rate - Afr Amer 84 mL/min (>60); Globulin 3.5 g/dL (2.2-4.2); Glucose 84 mg/dL (74-106); Potassium 4.1 mmol/L (3.5-5.1); Protein, Total 7.1 g/dL (6.4-8.2); Sodium Level 142 mmol/L (136-145)
== END | disposition home or self-care (01) ==
PROVIDERS: PCP Internal Medicine; Referring Provider Nurse Practitioner Family; Visit Provider Nurse Practitioner Family
DX: N30.01 Acute cystitis with hematuria (principal)
CPT/HCPCS: 80053; 85025

== ENCOUNTER → 2023-01-14 | Outpatient (CLI) | payer MEDICARE, SELFPAY ==
--- NOTE | 2023-01-14 14:20 | US_ITS ---
EXAM: US RETROPERITONEAL LIMITED, RENAL CLINICAL INDICATION: UTI TECHNIQUE: Limited grayscale and color Doppler sonographic evaluation of the retroperitoneum was performed. COMPARISON: No relevant prior studies available. FINDINGS: RIGHT KIDNEY: There is mild right-sided hydronephrosis. Right kidney measures 11.2 x 4.7 x 4.5 cm. The right renal cortex measures 1.4 cm. No shadowing calculus. No perinephric collection is demonstrated. LEFT KIDNEY: The left kidney measures 10.3 x 4.7 x 4.8 cm. The left renal cortex measures 1.5 cm. There are anechoic structures in the left kidney that measures 1.6 x 1.3 x 1 6 cm and 1.7 x 1.4 x 1.7 cm compatible with cysts. No hydronephrosis. No shadowing calculus. No perinephric collection is demonstrated. BLADDER: The bladder measures 7.3 x 10.0 x 9.7 cm for volume of 369 mL. The urinary bladder wall measures 3 mm. US/Kidney and Bladder IMPRESSION: Mild right-sided hydronephrosis. There are left-sided renal cysts. No other abnormalities are identified. Electronically Signed: Isidro Mauro MD at 23:54 EDT ,
== END | disposition home or self-care (01) ==
LOC: US 14:18
PROVIDERS: PCP Internal Medicine; Referring Provider Urology; Visit Provider Urology
DX: N39.0 Urinary tract infection, site not specified (principal)
CPT/HCPCS: 76770

== ENCOUNTER → 2023-02-04 | Outpatient (CLI) | payer MEDICARE, SELFPAY ==
--- NOTE | 2023-02-04 13:04 | CT_ITS ---
INDICATION: UNSPECIFIED HYDRONEPHROSIS EXAMINATION: CT ABDOMEN AND PELVIS WITH AND WITHOUT CONTRAST - CT Abdomen And Pelvis WO/W Contrast Injection TECHNIQUE: Helically acquired images were obtained of the abdomen and pelvis both before and after IV contrast. A radiation dose optimization technique was used for this scan. IV Contrast dosage and agent: 100 cc of Isovue-300 Oral contrast: None. RADIATION DOSAGE (If Supplied By Facility): CTDIvol = ( 6.60 ) mGy, DLP = ( 973.31 ) mGycm COMPARISON: Renal ultrasound of 01/14/2023. FINDINGS: LOWER CHEST: Lung bases are clear. No cardiomegaly or pericardial effusion. LIVER: Homogeneous. Pneumobilia. GALLBLADDER AND BILIARY TREE: Absent gallbladder likely surgically removed. The common bile duct measures about 6 mm. No intra- or extrahepatic biliary ductal dilation. PANCREAS: No focal cystic or solid mass. SPLEEN: Normal size without focal cystic or solid mass. ADRENAL GLANDS: No nodules. KIDNEYS AND URETERS: Unremarkable right kidney. 1.6 cm simple cyst in the upper pole of the left kidney for which no further follow-up exam is needed. 2 cm hypodense nodule likely solid in the posterior aspect of the left kidney not seen on the ultrasound examination. PERITONEUM: No ascites or free air. No other fluid collection. BOWEL: The appendix is not definitely identified. Sclerosis which is in the region of the rectosigmoid colon. No evidence of acute diverticulitis. Fecal retention. No evidence of small bowel obstruction. LYMPH NODES: No enlarged mesenteric or retroperitoneal lymph nodes. VESSELS: Aorta is non-dilated. URINARY BLADDER: Not well distended. REPRODUCTIVE ORGANS: No pelvic masses. ABDOMINAL WALL: No discrete abdominal or pelvic wall hernia. BONES: Degenerative changes of the spine. CT/CT Abd/Pelvis W/WO Contrast IMPRESSION: 1. Hyperdense nodule in the left kidney likely solid not seen on the ultrasound examination. Further evaluation with MRI of the abdomen with contrast is recommended. 2. Pneumobilia of undetermined significance at this time. 3. Otherwise no focal acute inflammatory process. 4. Fecal retention. Electronically Signed: Rob Pereira MD at 15:42 EDT ,
[2023-02-04 13:39] LABS: CREATININE FINGERSTICK < 0.9 mg/dL (0.55-1.02); EGFR FINGERSTICK > 60.0000 mL/min (>60)
[2023-02-04 14:45] LABS: Anion Gap 2 (5-15); BUN 26 mg/dL (7-18); BUN/Creat Ratio 21.8 RATIO (10-20); Calcium,Total 9.2 mg/dL (8.5-10.1); Chloride 103 mmol/L (98-107); Creatinine, Serum 1.19 mg/dL (0.55-1.02); EST Glomerular Filtration Rate 46 mL/min (>60); Est Glom Filt Rate - Afr Amer 56 mL/min (>60); Glucose 126 mg/dL (74-106); Potassium 3.9 mmol/L (3.5-5.1); Sodium Level 131 mmol/L (136-145)
== END | disposition home or self-care (01) ==
PROVIDERS: PCP Internal Medicine; Referring Provider Urology; Visit Provider Urology
DX: N13.30 Unspecified hydronephrosis (principal)
CPT/HCPCS: 36415; 74178; 80048; Q9967

== ENCOUNTER → 2023-02-21 | Outpatient (CLI) | payer MEDICARE, SELFPAY ==
--- NOTE | 2023-02-21 08:10 | MRI_ITS ---
EXAM: MR ABDOMEN WITHOUT AND WITH INTRAVENOUS CONTRAST CLINICAL INDICATION: RENAL MASS, blood in urine [id number], please compare to CT and ultrasound TECHNIQUE: Multiplanar and multisequence MR images of the abdomen without and with intravenous contrast. CONTRAST: IV 11ML CLARISCAN COMPARISON: CT dated 02/04/2023, renal ultrasound dated 01/14/2023 FINDINGS: LOWER THORAX: Normal. No pleural effusion. LIVER: Normal. Normal morphology. No focal mass. GALLBLADDER AND BILE DUCTS: Gallbladder is absent. No intra- or extrahepatic biliary ductal dilation. PANCREAS: Normal. No focal cystic or solid mass. SPLEEN: Normal. Normal size without focal cystic or solid mass. ADRENALS: Normal. No nodules. KIDNEYS AND URETERS: 16mm simple appearing cyst noted within the upper pole of the left kidney. Additional 2 cm lesion within the lateral aspect of the interpolar region of the left kidney demonstrating isointense T1 signal and markedly hypointense T2 signal. No enhancement of the lesion. Appearance suggestive of hemorrhagic or proteinaceous cyst. Right kidney is normal in appearance. Normal renal size and position. No hydronephrosis. INTRAPERITONEAL SPACE: Normal. No ascites or other fluid collection. No free air. VASCULATURE: Normal. Abdominal aorta is non-dilated. LYMPH NODES: No enlarged lymph nodes. MRI/MRI Abd WITH and W/O Contrast IMPRESSION: Small simple and complex left renal cysts. No evidence of a solid renal mass. Electronically Signed: Richard Díaz MD at 10:11 [facility] ,
[2023-02-21 08:52] LABS: CREATININE FINGERSTICK < 0.9 mg/dL (0.55-1.02); EGFR FINGERSTICK > 60.0000 mL/min (>60)
== END | disposition home or self-care (01) ==
PROVIDERS: PCP Internal Medicine; Referring Provider Urology; Visit Provider Urology
DX: N28.81 Hypertrophy of kidney (principal); R94.4 Abnormal results of kidney function studies
CPT/HCPCS: 74183; A9575

== ENCOUNTER → 2023-02-24 | Outpatient (CLI) | payer MEDICARE, SELFPAY ==
[2023-02-24 15:36] LABS: Anion Gap 6 (5-15); BUN 12 mg/dL (7-18); BUN/Creat Ratio 13.8 RATIO (10-20); Calcium,Total 8.8 mg/dL (8.5-10.1); Chloride 108 mmol/L (98-107); Creatinine, Serum 0.87 mg/dL (0.55-1.02); EST Glomerular Filtration Rate 66 mL/min (>60); Est Glom Filt Rate - Afr Amer 80 mL/min (>60); Glucose 68 mg/dL (74-106); Potassium 4.1 mmol/L (3.5-5.1); Sodium Level 141 mmol/L (136-145)
== END | disposition home or self-care (01) ==
LOC: MTLAB 13:07
PROVIDERS: PCP Internal Medicine; Referring Provider Urology; Visit Provider Urology
DX: N39.0 Urinary tract infection, site not specified (principal); N39.46 Mixed incontinence; R35.1 Nocturia; I10 Essential (primary) hypertension
CPT/HCPCS: 36415; 80048

== ENCOUNTER → 2023-11-05 | Outpatient (CLI) | payer MEDICARE, SELFPAY ==
--- NOTE | 2023-11-05 14:03 | NEURO_ITS ---
NCS and/or EMG Patient Report Ordering Doctor: Andria Narayan DATE OF SERVICE: 11/05/23 Ruthie presents electrodiagnostic testing of the lower limbs. She complains of numbness tingling and pain in both feet for approximately 1 year. Electrodiagnostic findings: Right peroneal motor nerve demonstrates normal dis adele latency with reduced amplitude and normal conduction velocity. Left peroneal motor nerve demonstrates normal distal latency with normal amplitude and conduction velocity. Tibial motor nerve on the right side demonstrates normal distal latency and amplitude with reduced conduction velocity. Left tibial motor nerve demonstrates normal distal latency and amplitude with normal conduction velocity. Sural latency is noted bilaterally. Normal superficial peroneal response bilaterally. Right tibial and left tibial F?wave. Prolonged H?reflex bilaterally. Needle EMG testing was performed the lower limbs. All muscles tested showed no evidence of denervation with normal reaction potentials Electrodiagnostic impression: This is an abnormal study in the lower limbs 1. Electrodiagnostic findings suggestive of peripheral polyneuropathy, with motor and sensory features. There is no evidence of axonal loss. 2. There is no electrodiagnostic evidence for lumbosacral radiculopathy. Multi Select Codes Neurology Neurology Interp Codes: 96180-87 Musc test done w/n test comp (interp) (2) and 72064-50 Nrv cndj test 9-10 studies (interp)
== END | disposition home or self-care (01) ==
LOC: PSN 07:04
PROVIDERS: PCP Internal Medicine; Referring Provider Internal Medicine; Visit Provider Internal Medicine
DX: R20.2 Paresthesia of skin (principal)
CPT/HCPCS: 95886; 95912

== ENCOUNTER → 2023-11-12 | Outpatient (CLI) | payer MEDICARE, SELFPAY ==
--- NOTE | 2023-11-12 12:20 | NEURO ---
NCS and/or EMG Patient Report Ordering Doctor: Andria Narayan DATE OF SERVICE: 11/12/23 Ruthie presents with numbness and tingling in both hands. Electrodiagnostic Findings: Testing was performed in the upper limbs. Right median motor nerve demonstrates prominence latency with normal amplitude and reduced conduction velocity. Left median motor nerve demonstrates normal distal NC, amplitude and conduction velocity. Ulnar motor response was within normal limits bilaterally, including conduction across the elbow. Prolonged right median F?wave. Prolonged right and left median sensory latency at the wrist. Needle EMG testing was performed the upper limbs. All muscles tested showed no evidence of denervation with normal motor unit action potentials. Electrodiagnostic impression: This is an abnormal study in the upper limbs 1. Electrodiagnostic findings demonstrate bilateral median mononeuropathy. This is consistent with a moderate right and mild left carpal tunnel syndrome. 2. No electrodiagnostic evidence is noted for cervical radiculopathy. Multi Select Codes Neurology Neurology Interp Codes: 67031-57 Musc test done w/n test comp (interp) (2) and 23461-89 Nrv cndj test 9-10 studies (interp)
== END | disposition home or self-care (01) ==
LOC: PSN 10:04
PROVIDERS: PCP Internal Medicine; Referring Provider Internal Medicine; Visit Provider Internal Medicine
DX: R20.2 Paresthesia of skin (principal)
CPT/HCPCS: 95886; 95911

== ENCOUNTER 2024-08-03 14:50 | Inpatient (IN) | payer MEDICARE, SELFPAY ==
[2024-08-03 14:52] VITALS: BP 132/85; PULSE 90; RESP 18; TEMP 36.9; O2SAT 98; BMI 22.8
[2024-08-03 15:55] LABS: Mucous, Urine 0 SEEN /hpf (<or=2+); Red Blood Cells-Urine 0 SEEN /hpf (0-5); Squamous Epithelial Cells - UA 0 SEEN /hpf (5-10)
[2024-08-03 15:59] LABS: Absolute Lymphocyte Count 1.35 X10^3/uL (0.83-4.51); Absolute Neutrophil Count 8.2 X10^3/uL (2.0-7.7); Basophil# 0.02 X10^3/uL; Basophil% 0.2 % (0-1); Eosinophil# 0.01 X10^3/uL; Eosinophils% 0.1 % (0-5); Hematocrit 40.5 % (37-47); Hemoglobin 13.7 g/dL (12.0-15.0); Lymphocyte # 1.35 X10^3/ul (0.83-4.51); Lymphocyte % 13.2 % (19-41); Mean Corp Hgb Conc 33.8 g/dL (32-36); Mean Corpuscular Hgb 30.5 pg (27.0-32.0); Mean Corpuscular Volume 90.2 fL (81-99); Monocyte# 0.65 X10^3/uL; Monocyte% 6.3 % (0-10); NRBC Flagged by Analyzer 0 % (0-5); Neutrophil # 8.17 X10^3/uL (2.7-7.7); Neutrophil % 79.7 % (47-70); Platelet Count 260 K/mm3 (150-450); RBC Distribution Width CV 13.1 % (11.6-14.6); RBC Distribution Width SD 43.4 fl (35.1-43.9); Red Blood Count 4.49 M/mm3 (4.2-5.4); White Blood Count 10.3 K/mm3 (4.4-11.0)
[2024-08-03 16:17] LABS: Lipase 53 U/L (13-75)
[2024-08-03 16:20] LABS: ALB/GLOB Ratio 1.4 RATIO (0.9-2.4); AST(SGOT) 41 U/L (<=31); Alanine Aminotransfer ALT/SGPT 22 U/L (<=34); Albumin, Serum 4.7 g/dL (3.4-4.8); Alkaline Phosphatase 72 U/L (35-104); Anion Gap 14 (5-15); BUN 28 mg/dL (4-19); BUN/Creat Ratio 16.2 RATIO (10-20); Calcium,Total 11.2 mg/dL (7.6-11.0); Carbon Dioxide 27.5 mmol/L (21.0-32.0); Chloride 90 mmol/L (98-108); EST Glomerular Filtration Rate 30 (>60); Estimated Creatinine Clearance 19.83 ml/min (50-250); Globulin 3.4 g/dL (2.2-4.2); Glucose 118 mg/dL (70-99); Potassium 4.7 mmol/L (3.3-5.1); Protein, Total 8.1 g/dL (5.9-8.4); Sodium Level 132 mmol/L (133-145); Total Bilirubin 0.85 mg/dL (0.00-1.30)
[2024-08-03 16:25] LABS: Glucose, Dipstick Normal (Normal); Ketone-Dipstick 5 mg/dl (Negative); Leukocyte Esterase-Dipstick 100 /ul (Negative); Nitrite-Dipstick Positive (Negative); Occult Blood-Urine 50 /ul (Negative); Protein-Dipstick 100 mg/dl (Negative); Urine Clarity Turbid (Clear); Urine Urobilinogen 8 mg/dl (Normal)
[2024-08-03 16:28] LABS: Color, Urine SEE COMMENT BELOW (Yellow); Urine Bilirubin Dipstick 6 mg/dL (Negative)
[2024-08-03 16:51] VITALS: BP 155/81; O2SAT 95
[2024-08-03 17:12] LABS: White Blood Cells >100 SEEN /hpf (0-5)
[2024-08-03 17:13] LABS: Bacteria 4+ /hpf (None Seen)
--- NOTE | 2024-08-03 17:25 | CT_ITS ---
PROCEDURE: ABDOMEN/PELVIS W IV CONT ONLY 08/03/2024 REASON FOR EXAM: DISTENTION, NO BOWEL MOVEMENT, NO FLATUS, HISTORY TECHNIQUE: Abdomen and pelvis CT with intravenous contrast. Coronal and Sagittal reconstruction series were provided. PATIENT PREPARATION: Per protocol ORAL CONTRAST TYPE: None. AMOUNT: mL CONTRAST: Omnipaque 350 VOLUME: 100 choose 1 mL Gauge IV One or more dose reduction techniques were used (e.g., Automated exposure control, adjustment of the mA and/or kV according to patient size, use of iterative reconstruction technique. COMPARISON: None FINDINGS: Lung bases: Mild cardiomegaly. No focal consolidation. Liver: Normal size. No mass. Gallbladder: Mild-moderate pneumobilia. No intrahepatic ductal dilation. No common bile duct dilation. Status post cholecystectomy. Spleen: Normal size. Pancreas: Normal size without evidence of mass surrounding inflammation or ductal dilation. Adrenals: Unremarkable Kidneys: 20 mm left upper pole simple cyst. 20 x 12 mm left interpolar region exophytic mildly enhancing lesion (series 601, image 76, series 2, image 32). Moderate right pelviectasis. No calculi or hydronephrosis. . Bladder: Urinary bladder is unremarkable. Reproductive Organs: No pelvic mass. Bowel: Fluid-filled moderately distended stomach. Multiple dilated small bowel loops, measuring up to 4.1 cm with transition point at the duodenojejunal junction (series 2 image 42), compatible with acute small bowel obstruction. No pneumoperitoneum. Distal colonic loops are collapsed. Colonic diverticulosis without diverticulitis. Normal appendix. Lymph nodes: No suspicious lymph node enlargement. Vasculature: Mild diffuse atherosclerotic calcifications are noted. Peritoneum / Retroperitoneum: No ascites. No pneumoperitoneum. Bones: Degenerative changes of the spine. CT/Abdomen/Pelvis W IV Cont ONLY IMPRESSION: 1. Multiple dilated small bowel loops, measuring up to 4.1 cm with transition p oint at the duodeno-jejunal junction, compatible small bowel obstruction. No pneumoperitoneum to suggest viscus perforation. 2. 20 x 12 mm left interpolar region exophytic mildly enhancing lesion, suspici ous for renal cell carcinoma. Recommend dedicated MRI kidney protocol. 3. Other findings as described above. [facility]
--- NOTE | 2024-08-03 17:37 | EX.ED.DYSGE1 ---
HPI History of Present Illness Chief Complaint: Abd Pain Detail of Chief Complaint: Abdominal pain, distention, nausea vomiting and constipation with no flatus Informant: patient Onset/Context/Timing Onset: Weeks (Has not had a bowel movement in greater than 1 week. No flatus x 24 hours) Context: Sudden Onset Timing: Continuous Quality: Abdominal distention and discomfort Location: GI Current Severity: Moderate Maximum Severity: Severe Worsened by: Nothing specific Relieved by: Nothing Associated Symptoms Associated Symptoms: Thirst, dry mouth and decreased urination Narrative Narrative: Patient is an 83-year-old woman. She is status post cholecystectomy, small bowel obstruction requiring surgery as well as a sigmoidectomy. She was admitted June of last year for partial small bowel obstruction. She is in the hospital for 5 days. She also reports dysuria. She denies hematuria since she is taking Pyridium/Azo. She denies fever, chills night sweats. She denies headache, visual, ocular auditory symptoms. She denies cardiac respiratory symptoms. She denies back or flank pain. Prior similar symptoms: Yes Recent Ill[facility] Medical History (Updated 08/03/24 @ 20:[address] Marino Burgos MD) Hx of small bowel obstruction Cholesterolosis Acid reflux Sleep apnea Arthritis History of back problems Home Medications ?Medication ?Instructions ?Recorded ?Last Taken ?Type echinacea 400 mg capsule 400 mg PO DAILY PRN immunity 10/15/18 10/18/18 History omega-3 fatty acids 1,000 mg 1,000 mg PO DAILY 10/15/18 10/18/18 History capsule multivitamin with minerals 1 ea PO DAILY 10/19/18 10/18/18 History ondansetron HCl 4 mg tablet 4 mg PO DAILY PRN nausea and 08/04/23 08/03/24 History vomiting sulfamethoxazole 400 1 tab PO QDAY 08/04/23 Unknown History mg-trimethoprim 80 mg tablet dicyclomine 20 mg tablet 20 mg PO TID #270 tabs 08/27/23 Unknown Rx d-mannose 500 mg capsule (AZO 500 mg PO DAILY 08/03/24 Unknown History D-Mannose) famotidine 20 mg tablet (Acid 20 mg PO BID PRN stomach upset 08/03/24 Unknown History Controller) fluticasone propionate 50 1 - 2 spray intranasal DAILY PRN 08/03/24 Unknown History mcg/actuation nasal allergy symptoms spray,suspension (Allergy Relief (fluticasone)) lorazepam 0.5 mg tablet 0.5 mg PO DAILY PRN anxiety 08/03/24 08/02/24 History melatonin 5 mg tablet 5 - 10 mg PO DAILY PRN sleep 08/03/24 Unknown History Allergy/AdvReac Type Severity Reaction Status Date / Time Iodinated Contrast Media Allergy Intermediate Hives Verified 08/03/24 14:52 (contrast dye - iodinated) iohexol Allergy Hives Verified 08/03/24 14:52 codeine AdvReac Nausea/Vom/ Verified 08/03/24 14:52 Diarrhea Family History Father Cancer prostate Brother Cancer brain Seizures Mother Colon cancer Surgical History History of colonoscopy (~2018) Hx laparoscopic cholecystectomy History of open sigmoidectomy History of colonoscopy history excision colon polyps History of arthroscopy of left knee Social History household members: none Smoking Status: Never smoker alcohol intake: never substance use type: does not use ROS ROS ED Constitutional Constitutional ED: Denies chills, fever(s), subjective, sweats or weight loss Eyes Eyes: Denies blurry vision or change in vision ENT ENT ED: Denies ear pain or rhinorrhea Cardiovascular Cardiovascular: Denies chest pain, palpitations or racing heartbeat Respiratory/Chest Respiratory/Chest: Denies cough, dyspnea or dyspnea on exertion Gastrointestinal Gastrointestinal: Reports abdominal pain, constipation, nausea and vomiting; Denies diarrhea or melena Genitourinary Genitourinary ED: Denies dysuria, hematuria or urinary frequency Musculoskeletal Musculoskeletal: Denies arthralgias, back pain or myalgias Integumentary Denies abscess, Abrasions or rash Neurologic Neurologic: Denies headache(s), paresthesias or weakness Psychiatric Psychiatric: Denies anxiety or depression Endocrine Endocrinology: Denies cold intolerance or heat intolerance Hematologic/Lymphatic Hematologic/Lymphatic: Reports systems reviewed and no addt'l complaints, except as documented EXAM Physical Exam Const Vital Signs: 08/03/24 14:52 08/03/24 16:51 08/03/24 18:00 Temperature 98.4 F Temperature Source Oral Pulse Rate 90 72 Respiratory Rate 18 16 Blood Pressure 132/85 H 155/81 H 156/84 H Blood Pressure Mean 100 105 108 Pulse Ox 98 95 95 Oxygen Delivery Method Room Air Room Air Room Air 08/03/24 20:00 Temperature Temperature Source Pulse Rate Respiratory Rate Blood Pressure 160/78 H Blood Pressure Mean 105 Pulse Ox Oxygen Delivery Method Positive well nourished and well developed General Appearance ED: well developed; Negative for NAD HEENT Reports dry mucous membranes HEENT Narrative: Head is atraumatic normocephalic. Ears normal. Nares patent Mouth ED: Yes dry mucous membranes Mouth: dry mucous membranes Eyes PERRL and EOMs intact bilaterally General Eye ED: Negative for pale conjunctiva or scleral icterus Neck no lymphadenopathy, supple and no JVD Chest Wall inspection of chest normal and palpation of chest normal Resp normal respiratory effort and clear to auscultation bilaterally Cardio regular rate, regular rhythm, S1 normal heart sound, S2 normal heart sound and no murmurs GI no masses; Negative for normal to inspection, nondistended, normoactive bowel sounds, non-tender, non-distended or hepatosplenomegaly Inspection: abdominal distention Auscultation: hypoactive bowel sounds Palpation: soft and tender other (Throughout.) Back/Spine no CVA tenderness Extremity normal to inspection General Extremety ED: Negative for edema or tenderness General Extremity: Negative for edema Neuro oriented x3 and CN's II-XII intact bilaterally Sensorium / Orientation: alert Psych mental status grossly normal Skin no rashes or lesions noted, no wounds and skin turgor normal MDM MDM MDM Narrative Medical decision making narrative: Abdominal pain distention could be due to ileus, small bowel or large bowel partial/complete obstruction. With her having urinary symptoms will obtain UA to rule out UTI. Will obtain CBC assess white count differential. Electrolyte panel to assess electrolytes, CO2 anion gap and BUN and creatinine. UA was obtained to assess for infection. Lab Data Lab results narrative: CBC is unremarkable. Electrolyte panel is marked for an elevated BUN and creatinine compared to baseline. She has evidence of acute kidney injury. BUN and creatinine are 28 and 1.7. Her creatinine was normal recently. Urine is consistent with infection with greater than 100 WBCs and 4+ bacteria. In light of this we will send you culture and treat with antibiotics. Since she has no antibiotic allergies he was treated with Rocephin. The dose of Rocephin was adjusted because of a GFR of 30. She also received 1 L of normal saline wide open. She does have allergy to contrast. She was treated with Solu-Medrol and Benadryl per protocol. Labs: Laboratory Results - last 24 hr 08/03/24 08/03/24 15:33 17:50 WBC 10.3 9.3 RBC 4.49 4.24 Hgb 13.7 12.9 Hct 40.5 38.3 MCV 90.2 90.3 MCH 30.5 30.4 MCHC 33.8 33.7 RDW Std Deviation 43.4 43.2 RDW Coeff of Shira 13.1 13.2 Plt Count 260 232 MPV 10.0 9.5 Immature Gran % (Auto) 0.500 0.200 Neut % (Auto) 79.7 H 74.8 H Lymph % (Auto) 13.2 L 17.3 L Hanson % (Auto) 6.3 7.5 Eos % (Auto) 0.1 0.1 Baso % (Auto) 0.2 0.1 Absolute Neuts (auto) 8.2 H 7.0 Absolute Lymphs (auto) 1.35 1.61 Nucleated RBC % 0 0 Sodium 132 L 130 L Potassium 4.7 4.3 Chloride 90 L 89 L Carbon Dioxide 27.5 26.7 Anion Gap 14 14 BUN 28 H 29 H Creatinine 1.70 H 1.55 H Estim Creat Clear Calc 19.83 L 21.75 L Est GFR (MDRD) Non-Af 30 L 33 L BUN/Creatinine Ratio 16.2 18.6 Glucose 118 H 111 H Lactic Acid 1.5 Calcium 11.2 H 10.6 Total Bilirubin 0.85 0.77 AST 41 H 34 H ALT 22 17 Alkaline Phosphatase 72 66 Total Protein 8.1 7.2 Albumin 4.7 4.2 Globulin 3.4 3.1 Albumin/Globulin Ratio 1.4 1.4 Lipase 53 Urine Color SEE COMMENT BELOW Urine Clarity Turbid Urine pH 5.0 Ur Specific [place] 1.020 Urine Protein 100 H Urine Glucose (UA) Normal Urine Ketones 5 H Urine Occult Blood 50 H Urine Nitrite Positive H Urine Bilirubin 6 H Urine Urobilinogen 8 H Ur Leukocyte Esterase 100 H Urine RBC 0 SEEN Urine WBC >100 SEEN Ur Squamous Epith Cells 0 SEEN Urine Bacteria 4+ Urine Mucus 0 SEEN Radiography Diagnostic Testing: Clinical Impression(s) from Imaging Studies Abdomen/Pelvis CT 08/03/24 17:25 IMPRESSION: 1. Multiple dilated small bowel loops, measuring up to 4.1 cm with transition point at the duodeno-jejunal junction, compatible small bowel obstruction. No pneumoperitoneum to suggest viscus perforation. 2. 20 x 12 mm left interpolar region exophytic mildly enhancing lesion, suspicious for renal cell carcinoma. Recommend dedicated MRI kidney protocol. 3. Other findings as described above. [facility] was [facility]. There is evidence of small bowel obstruction. Radiologist noted there is a transition point at the duodenal jejunal junction. There is no pneumoperitoneum to suggest perforation. Patient was also noted to have a left interpolar region cephalic mildly enhancing lesion suspicious for renal carcinoma. This can be dealt with after her obstruction is cared for. Management Discussion w/another healthcare provider: Hospitalist (Spoke with Dr. Humphreys. Full admission [facility]) and [employer] (Spoke with Dr. Hraris. He agrees with NG. He recommended admission to medicine.) Discharge Plan Triage Chief Complaint: Abd Pain ED Provider: AubreyMarino Dx/Rx/DC Orders Clinical Impression: Complete obstruction of small intestine, Nausea & vomiting, Urinary tract infection, Acute kidney injury, Elevated blood pressure reading with diagnosis of hypertension Prescriptions: No Action omega-3 fatty acids 1,000 mg capsule 1,000 mg PO DAILY echinacea 400 mg capsule 400 mg PO DAILY PRN (Reason: immunity) Patient Comments: PRN WHEN SICK sulfamethoxazole-trimethoprim 400-80 mg tablet 1 tab PO QDAY ondansetron HCl 4 mg tablet 4 mg PO DAILY PRN (Reason: nausea and vomiting) dicyclomine 20 mg tablet 20 mg PO TID Qty: 270 0RF multivitamin with minerals 1 EACH tablet 1 ea PO DAILY melatonin 5 mg tablet 5 - 10 mg PO DAILY PRN (Reason: sleep) lorazepam 0.5 mg tablet 0.5 mg PO DAILY PRN (Reason: anxiety) AZO D-Mannose 500 mg capsule 500 mg PO DAILY famotidine [Acid Controller] 20 mg tablet 20 mg PO BID PRN (Reason: stomach upset) fluticasone propionate [Allergy Relief (fluticasone)] 50 mcg/actuation spray,suspension 1 - 2 spray intranasal DAILY PRN (Reason: allergy symptoms) Rx Instructions: administer into each nostril Primary Care Provider: Andria Narayan Referrals: Andria Narayan DO [Primary Care Provider] - Print Language: Cymraes Disposition Disposition: Acute Care Hospital [facility]
[2024-08-03] MEDS: 0.9% Normal Saline (1000mL) 1,000 ML 1000 ML IV (17:53)
[2024-08-03] MEDS: DiphenhydrAMINE 50 MG/ML Syringe IV (17:55)
[2024-08-03 18:00] VITALS: BP 156/84; PULSE 72; RESP 16; O2SAT 95
[2024-08-03 18:15] LABS: Absolute Lymphocyte Count 1.61 X10^3/uL (0.83-4.51); Basophil# 0.01 X10^3/uL; Basophil% 0.1 % (0-1); Eosinophil# 0.01 X10^3/uL; Eosinophils% 0.1 % (0-5); Hematocrit 38.3 % (37-47); Hemoglobin 12.9 g/dL (12.0-15.0); Lymphocyte # 1.61 X10^3/ul (0.83-4.51); Lymphocyte % 17.3 % (19-41); Mean Corp Hgb Conc 33.7 g/dL (32-36); Mean Corpuscular Hgb 30.4 pg (27.0-32.0); Mean Corpuscular Volume 90.3 fL (81-99); Mean Platelet Vol. 9.5 fl (6.2-12.0); Monocyte% 7.5 % (0-10); NRBC Flagged by Analyzer 0 % (0-5); Neutrophil # 6.98 X10^3/uL (2.7-7.7); Neutrophil % 74.8 % (47-70); Platelet Count 232 K/mm3 (150-450); RBC Distribution Width CV 13.2 % (11.6-14.6); RBC Distribution Width SD 43.2 fl (35.1-43.9); Red Blood Count 4.24 M/mm3 (4.2-5.4); White Blood Count 9.3 K/mm3 (4.4-11.0)
[2024-08-03] MEDS: Ceftriaxone 1 GM/50 ML BAG IV (18:34)
[2024-08-03 18:38] LABS: ALB/GLOB Ratio 1.4 RATIO (0.9-2.4); AST(SGOT) 34 U/L (<=31); Alanine Aminotransfer ALT/SGPT 17 U/L (<=34); Albumin, Serum 4.2 g/dL (3.4-4.8); Alkaline Phosphatase 66 U/L (35-104); Anion Gap 14 (5-15); BUN 29 mg/dL (4-19); BUN/Creat Ratio 18.6 RATIO (10-20); Calcium,Total 10.6 mg/dL (7.6-11.0); Carbon Dioxide 26.7 mmol/L (21.0-32.0); Chloride 89 mmol/L (98-108); Creatinine, Serum 1.55 mg/dL (0.70-1.20); EST Glomerular Filtration Rate 33 (>60); Estimated Creatinine Clearance 21.75 ml/min (50-250); Globulin 3.1 g/dL (2.2-4.2); Glucose 111 mg/dL (70-99); Lactic Acid 1.5 mmol/L (0.0-2.0); Potassium 4.3 mmol/L (3.3-5.1); Protein, Total 7.2 g/dL (5.9-8.4); Sodium Level 130 mmol/L (133-145); Total Bilirubin 0.77 mg/dL (0.00-1.30)
[2024-08-03] MEDS: Ondansetron 4 MG/2 ML Vial IV (18:55)
--- NOTE | 2024-08-03 19:17 | RAD_ITS ---
PROCEDURE: ABDOMEN SINGLE VIEW (PORTABLE) 08/03/2024 REASON FOR EXAM: NG INSERTION TECHNIQUE: Single view abdomen. FINDINGS: Bowel gas: Bowel gas pattern is normal. No evidence of bowel obstruction. Calcifications: No suspicious calcifications. Bones: The bones are unremarkable. Other: Nasogastric tube with the tip in the left upper quadrant likely in the body of the stomach. RAD/Abdomen Single View (Portable) IMPRESSION: Nasogastric tube with the tip in the left upper quadrant likely in the body of the stomach. No bowel obstruction. Reading Location: [id number]
[2024-08-03 20:00] VITALS: BP 160/78
--- NOTE | 2024-08-03 20:15 | PCM.HP.STD ---
HPI - General General Date of Admission: 08/03/24 Date of Service: 08/03/24 Chief Complaint: Abdominal pain, N/V, distention, dysuria. HPI Narrative The patient is an 83 y/o F w/ PMHx: Allergic rhinitis, LIANNA, GERD, Hx SBO, Anxiety, Possible CKD stage III unclear subtype per GFR trending, prior appeared stage II who presents to the [facility] ED on 08/03/24 with history of onset abdominal pain with discomfort, distention, nausea and emesis with lack of flatus and recent issues with constipation noting that she has not had bowel movement in greater than 1 week and no flatus in the last 24 hours with decreased urine output, decreased oral intake and dehydrated sensation with also recent onset of dysuria with no fevers or chills but given not improving prompted ED evaluation. Currently she is rating her pain at 8 of 10 in severity. Notes it is more cramping, aching and intermittent sharp stabbing. She does note that it tends to wax and wane. She does report chronic issues with urinary tract infections on chronic antibiotic therapy prescribed per primary care physician. She does report she has been more stressed as she is recently and is attempting to sell her property as it is too much to take care of on her own. Workup in the ED included T98.4, heart rate 90, BP 132/85, respiratory rate 18, 98% on room air with most recent repeat vitals heart rate 72, BP 156/84, respiratory rate 16, 95% on room air, CBC with WBC 9.3, hemoglobin 12.9, MCV 90.3, platelet 232 without marked shift, CMP with sodium 130, chloride 89, BUN/creatinine 29/1.55, GFR 33, glucose 111, AST 34 otherwise unremarkable, lactic acid 1.5, urine turbid, specific [place] 1.020, protein 100, ketone 5, occult blood 50, positive nitrite, leukocyte Estrace 100, urine WBCs greater than 100 with 4+ urine bacteria, urine culture pending per ED, CT abdomen and pelvis with multiple dilated small bowel loops measuring up to 4.1 cm with transition point at the duodenal jejunal junction compatible with small bowel obstruction, 20 x 12 mm left interpolar region exophytic mildly enhancing lesion suspicious for renal cell carcinoma with recommended dedicated follow-up imaging. Most recent previously noted culture that was positive was 05/27/2016 with Klebsiella greater than 100,000 with resistance to ampicillin and insensitivity to nitrofurantoin otherwise pansensitive. In the ED patient ministered Zofran 4 mg IV x 1, Solu-Medrol 40 mg IV x 1, Benadryl 50 mg IV x 1, Rocephin 1 g IV x 1, 1 L normal saline. ED discussed case with Dr. Harris. In the ED NGT being placed. [facility] Medical History Hx of small bowel obstruction Cholesterolosis Acid reflux Sleep apnea Arthritis History of back problems Home Medications ?Medication ?Instructions ?Recorded ?Last Taken ?Type echinacea 400 mg capsule 400 mg PO DAILY PRN immunity 10/15/18 10/18/18 History omega-3 fatty acids 1,000 mg 1,000 mg PO DAILY 10/15/18 10/18/18 History capsule multivitamin with minerals 1 ea PO DAILY 10/19/18 10/18/18 History ondansetron HCl 4 mg tablet 4 mg PO DAILY PRN nausea and 08/04/23 08/03/24 History vomiting sulfamethoxazole 400 1 tab PO QDAY 08/04/23 Unknown History mg-trimethoprim 80 mg tablet dicyclomine 20 mg tablet 20 mg PO TID #270 tabs 08/27/23 Unknown Rx d-mannose 500 mg capsule (AZO 500 mg PO DAILY 08/03/24 Unknown History D-Mannose) famotidine 20 mg tablet (Acid 20 mg PO BID PRN stomach upset 08/03/24 Unknown History Controller) fluticasone propionate 50 1 - 2 spray intranasal DAILY PRN 08/03/24 Unknown History mcg/actuation nasal allergy symptoms spray,suspension (Allergy Relief (fluticasone)) lorazepam 0.5 mg tablet 0.5 mg PO DAILY PRN anxiety 08/03/24 08/02/24 History melatonin 5 mg tablet 5 - 10 mg PO DAILY PRN sleep 08/03/24 Unknown History Allergy/AdvReac Type Severity Reaction Status Date / Time Iodinated Contrast Media Allergy Intermediate Hives Verified 08/03/24 14:52 (contrast dye - iodinated) iohexol Allergy Hives Verified 08/03/24 14:52 codeine AdvReac Nausea/Vom/ Verified 08/03/24 14:52 Diarrhea Family History Father Cancer prostate Brother Cancer brain Seizures Mother Colon cancer Surgical History History of colonoscopy (~2019) Hx laparoscopic cholecystectomy History of open sigmoidectomy History of colonoscopy history excision colon polyps History of arthroscopy of left knee Social History household members: none Smoking Status: Never smoker alcohol intake: never substance use type: does not use ROS ROS Narrative Admission Review of Systems: CONSTITUTIONAL: No weight loss, fever, chills, + weakness or fatigue. HEENT: Eyes: No visual loss, blurred vision, double vision or yellow sclerae. Ears, Nose, Throat: No hearing loss, sneezing, congestion, runny nose or sore throat. SKIN: No rash or itching, lesions, wounds. CARDIOVASCULAR: No chest pain, chest pressure or chest discomfort, palpitations, edema, orthopnea, syncopal events. RESPIRATORY: No shortness of breath, cough or sputum, wheezing, hemoptysis. GASTROINTESTINAL: +, Constipation, lack of flatus, abdominal distention and pain anorexia, nausea, vomiting. No diarrhea, melena, BRBPR. GENITOURINARY: + Decreased urine output, dysuria. No frequency, urgency or retention. NEUROLOGICAL: No headache, dizziness, syncope, paralysis, ataxia, numbness or tingling in the extremities, focal weakness, change in bowel or bladder control, seizure. MUSCULOSKELETAL: +muscle, back pain, joint pain or stiffness. HEMATOLOGIC: No anemia, bleeding or bruising. LYMPHATICS: No enlarged nodes. No history of splenectomy. PSYCHIATRIC: No history of depression or anxiety. ENDOCRINOLOGIC: No reports of sweating, cold or heat intolerance. No polyuria or polydipsia. ALLERGIES: + History of hives, allergic rhinitis. Vital Signs Vital Signs Vital Signs: 08/03/24 14:52 08/03/24 16:51 08/03/24 18:00 Temperature 98.4 F Temperature Source Oral Pulse Rate 90 72 Respiratory Rate 18 16 Blood Pressure 132/85 H 155/81 H 156/84 H Blood Pressure Mean 100 105 108 Pulse Ox 98 95 95 Oxygen Delivery Method Room Air Room Air Room Air 08/03/24 20:00 Temperature Temperature Source Pulse Rate Respiratory Rate Blood Pressure 160/78 H Blood Pressure Mean 105 Pulse Ox Oxygen Delivery Method Weight Weight: 125 lb Body Mass Index (BMI) 22.8 Physical Exam Narrative Physical Examination: General: Awake, alert, oriented x 3 and cooperative, seated upright in ED bed in no apparent distress, had previously been walking to the restroom and back, currently rating her discomfort to her abdomen 8 out of 10 in severity. Skin: Normal color, normal turgor, no icterus, no cyanosis except occasional stage ecchymoses, abrasion. HEENT: AT/NC, EOMI, PERRLA, moderately dry MM, no carotid bruits or JVD noted. Lungs: Mildly diminished, greater bases, poor effort, no rales, ronchi or wheezing. Heart: Regular rate and rhythm; no gallop, rub audible. Abdomen: Soft, mild generalized discomfort with palpation, distended, mildly tympanitic, difficult to discern HSM given pain with palpation and distention with SBO. Extremities: No cyanosis, clubbing, or edema. Neurological: Patient awake, alert, oriented as noted, cognitive function intact; pupils equally reactive to light and accommodation, cranial nerves gross normal, moving all 4 extremities, no focal deficits, strength moderately globally decreased secondary to acute presentation. Psychiatric: Affect appears fatigued, mildly uncomfortable, no acute evidence of depressive or anxiety feelings. Results Lab / Micro Data 08/03/24 17:50 08/03/24 17:50 Labs: Laboratory Results - last 24 hr 08/03/24 15:33: WBC 10.3, RBC 4.49, Hgb 13.7, Hct 40.5, MCV 90.2, MCH 30.5, MCHC 33.8, RDW Std Deviation 43.4, RDW Coeff of Shira 13.1, Plt Count 260, MPV 10.0, Immature Gran % (Auto) 0.500, Neut % (Auto) 79.7 H, Lymph % (Auto) 13.2 L, [place] % (Auto) 6.3, Eos % (Auto) 0.1, Baso % (Auto) 0.2, Absolute Neuts (auto) 8.2 H, Absolute Lymphs (auto) 1.35, Nucleated RBC % 0, Sodium 132 L, Potassium 4.7, Chloride 90 L, Carbon Dioxide 27.5, Anion Gap 14, BUN 28 H, Creatinine 1.70 H, Estim Creat Clear Calc 19.83 L, Est GFR (MDRD) Non-Af 30 L, BUN/Creatinine Ratio 16.2, Glucose 118 H, Calcium 11.2 H, Total Bilirubin 0.85, AST 41 H, ALT 22, Alkaline Phosphatase 72, Total Protein 8.1, Albumin 4.7, Globulin 3.4, Albumin/Globulin Ratio 1.4, Lipase 53, Urine Color SEE COMMENT BELOW, Urine Clarity Turbid, Urine pH 5.0, Ur Specific [place] 1.020, Urine Protein 100 H, Urine Glucose (UA) Normal, Urine Ketones 5 H, Urine Occult Blood 50 H, Urine Nitrite Positive H, Urine Bilirubin 6 H, Urine Urobilinogen 8 H, Ur Leukocyte Esterase 100 H, Urine RBC 0 SEEN, Urine WBC >100 SEEN, Ur Squamous Epith Cells 0 SEEN, Urine Bacteria 4+, Urine Mucus 0 SEEN 08/03/24 17:50: WBC 9.3, RBC 4.24, Hgb 12.9, Hct 38.3, MCV 90.3, MCH 30.4, MCHC 33.7, RDW Std Deviation 43.2, RDW Coeff of Shira 13.2, Plt Count 232, MPV 9.5, Immature Gran % (Auto) 0.200, Neut % (Auto) 74.8 H, Lymph % (Auto) 17.3 L, [place] % (Auto) 7.5, Eos % (Auto) 0.1, Baso % (Auto) 0.1, Absolute Neuts (auto) 7.0, Absolute Lymphs (auto) 1.61, Nucleated RBC % 0, Sodium 130 L, Potassium 4.3, Chloride 89 L, Carbon Dioxide 26.7, Anion Gap 14, BUN 29 H, Creatinine 1.55 H, Estim Creat Clear Calc 21.75 L, Est GFR (MDRD) Non-Af 33 L, BUN/Creatinine Ratio 18.6, Glucose 111 H, Lactic Acid 1.5, Calcium 10.6, Total Bilirubin 0.77, AST 34 H, ALT 17, Alkaline Phosphatase 66, Total Protein 7.2, Albumin 4.2, Globulin 3.1, Albumin/Globulin Ratio 1.4 Imaging Radiology Impression Abdomen/Pelvis CT 08/03/24 17:25 IMPRESSION: 1. Multiple dilated small bowel loops, measuring up to 4.1 cm with transition point at the duodeno-jejunal junction, compatible small bowel obstruction. No pneumoperitoneum to suggest viscus perforation. 2. 20 x 12 mm left interpolar region exophytic mildly enhancing lesion, suspicious for renal cell carcinoma. Recommend dedicated MRI kidney protocol. 3. Other findings as described above. Reading [facility] Assessment & Plan Assessment/Plan (1) SBO (small bowel obstruction): (2) UTI (urinary tract infection): PLAN: Plan The patient is an 83 y/o F w/ PMHx: Allergic rhinitis, LIANNA, GERD, Hx SBO, Anxiety, Possible CKD stage III unclear subtype per GFR trending, prior appeared stage II who presents to the [facility] ED on 08/03/24 with history of onset abdominal pain with discomfort, distention, nausea and emesis with lack of flatus and recent issues with constipation noting that she has not had bowel movement in greater than 1 week and no flatus in the last 24 hours with decreased urine output, decreased oral intake and dehydrated sensation with also recent onset of dysuria with no fevers or chills but given not improving prompted ED evaluation. #1. Abdominal pain, nausea, emesis, abdominal distention w/ SBO complicated by prior volvulus s/p sigmoidectomy: Will admit to MS, maintain on IVFs, continue NGT to suction, strict I&Os, IV pain/anti-emetics PRN, serial KUB as needed to montior bowel function, maintain on IV PPI, maintain NPO on bowel rest. General surgery consulted, following. #2. Acute Complicated Urinary Tract Infection: UA upon ED evaluation remarkable, pending UCx, continue judicious IVFs, monitor I/Os, continue IV Rocephin w/ transition as able pending sensitivities and speciation. Bld cx x 2 obtained in the ED. PT/OT/case management consulted for discharge planning. #3. JAYA on CKD stage II versus progressed renal disease w/ Chronic Kidney Disease Stage III, unclear subtype per GFR trending: Admission BUN/Cr 05/05.55, GFR 33, baseline renal function more recently 08/03/2024 earlier in the day 1.70 but prior to this in 2022 had been 0.8-1.1, will continue to hydrate, continue treatment as noted above, trend renal function and if worsens certainly investigate further. Will temporally hold nephrotoxic medication given uncertainty. #4. Hyponatremia, hypochloremia, suspect hypovolemic component: Admission sodium 130, chloride 89, given presentation and elevated specific cavity do suspect dehydration likely in part secondary to #1, complicated by #2, will continue hydration repeat CMP in AM. #5. Incidentally noted mildly enhancing exophytic renal lesion, increased in size from prior per daughter report: CT scan with 20 x 12 mm left interpolar region exophytic mildly enhancing lesion suspicious for renal cell carcinoma, will need follow-up MRI kidney protocol for further evaluation. #6. Anxiety: Patient uses low-dose lorazepam once daily as needed, given presentation may transition temporarily to IV version. #7. Allergic rhinitis: Will temporally hold fluticasone as per record lists as needed, if needed may add back. #8. GERD: Given presentation will temporally place on IV PPI. #9. LIANNA: Given presentation will defer PAP therapy and utilize oxygen supplementation as needed. #10. DVT prophylaxis: Lovenox. #11. CODE status: Patient HCPLINDSAY is her daughter, from discussion uncertain if living will is in place or not. Discussed CODE status at length including difference between FULL code, DNR-CCA and DNR-CC status. Following discussions about the differences in these status, requested Full Code status. Advanced Care Planning Face to Face Time: 16 minutes. Charges/Coding Visit Charges Inpatient E&M: 89547 Init Hosp L3 Procedures Hospitalists Procedures: 36533 Advncd Care Plan 30 Min
[2024-08-03 20:48] VITALS: BP 160/78; PULSE 67; RESP 16; TEMP 36.9; O2SAT 95
[2024-08-03] MEDS: Lidocaine Jelly 2% 20 ML Syringe (URO-JET) 1 APPLIC TOPICAL (21:14)
[2024-08-03 21:20] VITALS: BMI 21.2
[2024-08-03 21:26] VITALS: BP 154/75; PULSE 74; RESP 17; TEMP 36.8; O2SAT 93
[2024-08-03] MEDS: 0.9% Normal Saline (1000mL) 1,000 ML 100 ML IV (21:38)
[2024-08-03] MEDS: Pantoprazole Sodium 40 MG in 0.9% Normal Saline (100mL MB+) 100 ML 330 MG IV (21:38)
[2024-08-03] MEDS: Acetaminophen 650 MG Suppository RC (22:23)
[2024-08-04 02:19] VITALS: BP 116/70; PULSE 67; RESP 16; TEMP 36.8; O2SAT 96
[2024-08-04 06:00] VITALS: BMI 21.2
--- NOTE | 2024-08-04 07:27 | PCM.PN.HOSP ---
Reason for Visit Reason for Visit: Diagnoses Unspecified intestinal obstruction, unspecified as to partial versus complete obstruction (08/03/24) Urinary tract infection, site not specified (08/03/24) Subjective Subjective Patient is an 83-year-old lady with previous abdominal surgery (sigmoidectomy for volvulus, cholecystectomy and excision of colonic polyps) who presented with abdominal pain with associated nausea and vomiting and abdominal distention. Imaging studies came back consistent with Small bowel obstruction admitted to regular nursing floor for further management Objective Data Objective Data Vital Signs: Vital Signs Temp Pulse Resp BP Pulse Ox O2 Del Method 98.2 F 67 16 116/70 96 Room Air 08/04/24 02:19 08/04/24 02:19 08/04/24 02:19 08/04/24 02:19 08/04/24 02:19 08/04/24 02:19 Oxygen Delivery Method Room Air Weight: 57.9 kg Body Mass Index (BMI) 21.2 Intake & Output: Intake and Output for Last 24 Hours 08/02/24 08/03/24 08/04/24 23:59 23:59 23:59 Intake Total 1410 / 1410 375 / 375 Output Total 450 / 450 Balance 1410 / 1160 -75 / -75 Lab / Micro Data 08/04/24 07:47 08/03/24 17:50 Labs: Laboratory Results - last 24 hr 08/03/24 15:33: WBC 10.3, RBC 4.49, Hgb 13.7, Hct 40.5, MCV 90.2, MCH 30.5, MCHC 33.8, RDW Std Deviation 43.4, RDW Coeff of Shira 13.1, Plt Count 260, MPV 10.0, Immature Gran % (Auto) 0.500, Neut % (Auto) 79.7 H, Lymph % (Auto) 13.2 L, [place] % (Auto) 6.3, Eos % (Auto) 0.1, Baso % (Auto) 0.2, Absolute Neuts (auto) 8.2 H, Absolute Lymphs (auto) 1.35, Nucleated RBC % 0, Sodium 132 L, Potassium 4.7, Chloride 90 L, Carbon Dioxide 27.5, Anion Gap 14, BUN 28 H, Creatinine 1.70 H, Estim Creat Clear Calc 19.83 L, Est GFR (MDRD) Non-Af 30 L, BUN/Creatinine Ratio 16.2, Glucose 118 H, Calcium 11.2 H, Total Bilirubin 0.85, AST 41 H, ALT 22, Alkaline Phosphatase 72, Total Protein 8.1, Albumin 4.7, Globulin 3.4, Albumin/Globulin Ratio 1.4, Lipase 53, Urine Color SEE COMMENT BELOW, Urine Clarity Turbid, Urine pH 5.0, Ur Specific [place] 1.020, Urine Protein 100 H, Urine Glucose (UA) Normal, Urine Ketones 5 H, Urine Occult Blood 50 H, Urine Nitrite Positive H, Urine Bilirubin 6 H, Urine Urobilinogen 8 H, Ur Leukocyte Esterase 100 H, Urine RBC 0 SEEN, Urine WBC >100 SEEN, Ur Squamous Epith Cells 0 SEEN, Urine Bacteria 4+, Urine Mucus 0 SEEN 08/03/24 17:50: WBC 9.3, RBC 4.24, Hgb 12.9, Hct 38.3, MCV 90.3, MCH 30.4, MCHC 33.7, RDW Std Deviation 43.2, RDW Coeff of Shira 13.2, Plt Count 232, MPV 9.5, Immature Gran % (Auto) 0.200, Neut % (Auto) 74.8 H, Lymph % (Auto) 17.3 L, [place] % (Auto) 7.5, Eos % (Auto) 0.1, Baso % (Auto) 0.1, Absolute Neuts (auto) 7.0, Absolute Lymphs (auto) 1.61, Nucleated RBC % 0, Sodium 130 L, Potassium 4.3, Chloride 89 L, Carbon Dioxide 26.7, Anion Gap 14, BUN 29 H, Creatinine 1.55 H, Estim Creat Clear Calc 21.75 L, Est GFR (MDRD) Non-Af 33 L, BUN/Creatinine Ratio 18.6, Glucose 111 H, Lactic Acid 1.5, Calcium 10.6, Total Bilirubin 0.77, AST 34 H, ALT 17, Alkaline Phosphatase 66, Total Protein 7.2, Albumin 4.2, Globulin 3.1, Albumin/Globulin Ratio 1.4 Radiography Diagnostic Testing: Radiology Impression Abdomen/Pelvis CT 08/03/24 17:25 IMPRESSION: 1. Multiple dilated small bowel loops, measuring up to 4.1 cm with transition point at the duodeno-jejunal junction, compatible small bowel obstruction. No pneumoperitoneum to suggest viscus perforation. 2. 20 x 12 mm left interpolar region exophytic mildly enhancing lesion, suspicious for renal cell carcinoma. Recommend dedicated MRI kidney protocol. 3. Other findings as described above. [facility] 08/03/24 19:17 IMPRESSION: Nasogastric tube with the tip in the left upper quadrant likely in the body of the stomach. No bowel obstruction. Reading Location: [facility] Physical Exam Narrative GENERAL: cooperative HEENT: Atraumatic; normocephalic EYES; Anicteric, Normal Conjunctiva NECK; supple, normal thyroid, RESPIRATORY: Diminished to auscultation CARDIOVASCULAR: Regular S1 S2, GI: soft, normoactive bowel sounds, : No Renal angle tenderness; EXTREMITIES: No edema, no clubbing, MUSCULOSKELETAL: no muscle wasting NEURO: Awake; no lateralizing signs. SKIN: No Rash PSYCH; Flat affect Assessment & Plan Assessment/Plan (1) SBO (small bowel obstruction): (2) UTI (urinary tract infection): PLAN: Plan Patient is an 83-year-old lady with previous abdominal surgery (sigmoidectomy for volvulus, cholecystectomy and excision of colonic polyps) who presented with abdominal pain with associated nausea and vomiting and abdominal distention. Imaging studies came back consistent with Small bowel obstruction admitted to regular nursing floor for further management 1. Small bowel obstruction ? Suspected to be secondary to adhesions following patient previous surgery. CT of the abdomen and pelvis obtained on admission did showMultiple dilated small bowel loops, measuring up to 4.1 cm with transition point at the duodeno-jejunal junction, compatible small bowel obstruction. No pneumoperitoneum to suggest viscus perforation. Patient admitted to regular nursing floor conservative management with bowel rest, NG tube to suction pain medication and antinausea medication initiated consult was placed to general surgery patient has been seen by Dr. Harris his note and recommendations reviewed 2. Acute complicated urinary tract infection ? Patient started on ceftriaxone urine culture sent we will follow-up on result 3. Renal mass ? Incidentally noted mildly enhancing exophytic CT scan with 20 x 12 mm left interpolar region exophytic mildly enhancing lesion suspicious for renal cell carcinoma, plan is for patient to undergo follow-up MRI kidney protocol for further evaluation. Consult was placed to urology. Family request 4. Obstructive sleep apnea -PAP therapy encouraged 5. Allergic rhinitis ? Patient was on fluticasone did continue 6. Anxiety disorder ? Patient is on lorazepam as needed 7. DVT prophylaxis ? Subcu Lovenox. Updated patient's daughter Mercedes on [phone] on mom's condition Charges/Coding Visit Charges Inpatient E&M: 52026 Subs Hosp L2
[2024-08-04 07:32] VITALS: O2SAT 96
--- NOTE | 2024-08-04 07:37 | EX.PCM.CON.S ---
Assessment & Plan Assessment/Plan (1) SBO (small bowel obstruction): PLAN: The patient reports that she is passing some gas this morning. She had only about 100 cc out of her NG since midnight. I believe that she is starting to resolve her small bowel obstruction. Her abdomen was soft and mildly distended. I would like to decompress her for day and perform a small bowel follow-through tomorrow. If she continues to improve we may possibly remove her NG later this afternoon. Delvin Harris MD Pager: [facility] [address] [place] [address] [facility] [address] [place] [address] Office: HPI Consult Data Date of Consult: 08/04/24 HPI Narrative HPI Narrative: MARY GALLEGOS, is a 83 F who presents with 2 days of nausea and vomiting. The patient reported that she was having abdominal pain and nausea and vomiting and presented to the emergency room. NG tube was placed. The patient has had bowel obstruction in the past. She has had several surgeries including cholecystectomy and partial colon resection. She had a bowel obstruction last June that resolved on its own. [facility] Medical History Hx of small bowel obstruction Cholesterolosis Acid reflux Sleep apnea Arthritis History of back problems Home Medications ?Medication ?Instructions ?Recorded ?Last Taken ?Type echinacea 400 mg capsule 400 mg PO DAILY PRN immunity 10/15/18 10/18/18 History omega-3 fatty acids 1,000 mg 1,000 mg PO DAILY 10/15/18 10/18/18 History capsule multivitamin with minerals 1 ea PO DAILY 10/19/18 10/18/18 History ondansetron HCl 4 mg tablet 4 mg PO DAILY PRN nausea and 08/04/23 08/03/24 History vomiting sulfamethoxazole 400 1 tab PO QDAY 08/04/23 Unknown History mg-trimethoprim 80 mg tablet dicyclomine 20 mg tablet 20 mg PO TID #270 tabs 08/27/23 Unknown Rx d-mannose 500 mg capsule (AZO 500 mg PO DAILY 08/03/24 Unknown History D-Mannose) famotidine 20 mg tablet (Acid 20 mg PO BID PRN stomach upset 08/03/24 Unknown History Controller) fluticasone propionate 50 1 - 2 spray intranasal DAILY PRN 08/03/24 Unknown History mcg/actuation nasal allergy symptoms spray,suspension (Allergy Relief (fluticasone)) lorazepam 0.5 mg tablet 0.5 mg PO DAILY PRN anxiety 08/03/24 08/02/24 History melatonin 5 mg tablet 5 - 10 mg PO DAILY PRN sleep 08/03/24 Unknown History Allergy/AdvReac Type Severity Reaction Status Date / Time Iodinated Contrast Media Allergy Intermediate Hives Verified 08/03/24 14:52 (contrast dye - iodinated) iohexol Allergy Hives Verified 08/03/24 14:52 codeine AdvReac Nausea/Vom/ Verified 08/03/24 14:52 Diarrhea Family History Father Cancer prostate Brother Cancer brain Seizures Mother Colon cancer Surgical History History of colonoscopy (~2018) Hx laparoscopic cholecystectomy History of open sigmoidectomy History of colonoscopy history excision colon polyps History of arthroscopy of left knee Social History household members: none Smoking Status: Never smoker alcohol intake: never substance use type: does not use ROS Constitutional Constitutional: Denies anorexia, chills or fatigue Eyes Eyes: Denies blurry vision ENT HEENT: Denies abnormal hearing Cardiovascular Cardiovascular: Denies chest pain Respiratory/Chest Respiratory/Chest: Denies cough or dyspnea Gastrointestinal Gastrointestinal: Reports abdominal pain, nausea and vomiting; Denies constipation or diarrhea Genitourinary Genitourinary: Denies change in urinary stream Musculoskeletal Musculoskeletal: Denies abnormal gait Integumentary Integumentary: Denies jaundice or new lesions Neurologic Neurologic: Denies abnormal gait or dizziness Psychiatric Psychiatric: Denies anxiety or depression Endocrine Endocrinology: Denies flushing Physical Exam Const alert and oriented x3 HEENT normocephalic Eyes PERRL Resp normal respiratory effort Cardio Rate: regular rate Rhythm: regular rhythm GI soft to palpation, non-tender and non-distended Lab / Micro Data 08/03/24 17:50 08/03/24 17:50 Labs: Laboratory Results - last 24 hr 08/03/24 15:33: WBC 10.3, RBC 4.49, Hgb 13.7, Hct 40.5, MCV 90.2, MCH 30.5, MCHC 33.8, RDW Std Deviation 43.4, RDW Coeff of Shira 13.1, Plt Count 260, MPV 10.0, Immature Gran % (Auto) 0.500, Neut % (Auto) 79.7 H, Lymph % (Auto) 13.2 L, [place] % (Auto) 6.3, Eos % (Auto) 0.1, Baso % (Auto) 0.2, Absolute Neuts (auto) 8.2 H, Absolute Lymphs (auto) 1.35, Nucleated RBC % 0, Sodium 132 L, Potassium 4.7, Chloride 90 L, Carbon Dioxide 27.5, Anion Gap 14, BUN 28 H, Creatinine 1.70 H, Estim Creat Clear Calc 19.83 L, Est GFR (MDRD) Non-Af 30 L, BUN/Creatinine Ratio 16.2, Glucose 118 H, Calcium 11.2 H, Total Bilirubin 0.85, AST 41 H, ALT 22, Alkaline Phosphatase 72, Total Protein 8.1, Albumin 4.7, Globulin 3.4, Albumin/Globulin Ratio 1.4, Lipase 53, Urine Color SEE COMMENT BELOW, Urine Clarity Turbid, Urine pH 5.0, Ur Specific [place] 1.020, Urine Protein 100 H, Urine Glucose (UA) Normal, Urine Ketones 5 H, Urine Occult Blood 50 H, Urine Nitrite Positive H, Urine Bilirubin 6 H, Urine Urobilinogen 8 H, Ur Leukocyte Esterase 100 H, Urine RBC 0 SEEN, Urine WBC >100 SEEN, Ur Squamous Epith Cells 0 SEEN, Urine Bacteria 4+, Urine Mucus 0 SEEN 08/03/24 17:50: WBC 9.3, RBC 4.24, Hgb 12.9, Hct 38.3, MCV 90.3, MCH 30.4, MCHC 33.7, RDW Std Deviation 43.2, RDW Coeff of Shira 13.2, Plt Count 232, MPV 9.5, Immature Gran % (Auto) 0.200, Neut % (Auto) 74.8 H, Lymph % (Auto) 17.3 L, [place] % (Auto) 7.5, Eos % (Auto) 0.1, Baso % (Auto) 0.1, Absolute Neuts (auto) 7.0, Absolute Lymphs (auto) 1.61, Nucleated RBC % 0, Sodium 130 L, Potassium 4.3, Chloride 89 L, Carbon Dioxide 26.7, Anion Gap 14, BUN 29 H, Creatinine 1.55 H, Estim Creat Clear Calc 21.75 L, Est GFR (MDRD) Non-Af 33 L, BUN/Creatinine Ratio 18.6, Glucose 111 H, Lactic Acid 1.5, Calcium 10.6, Total Bilirubin 0.77, AST 34 H, ALT 17, Alkaline Phosphatase 66, Total Protein 7.2, Albumin 4.2, Globulin 3.1, Albumin/Globulin Ratio 1.4 Imaging Radiology Impression Abdomen/Pelvis CT 08/03/24 17:25 IMPRESSION: 1. Multiple dilated small bowel loops, measuring up to 4.1 cm with transition point at the duodeno-jejunal junction, compatible small bowel obstruction. No pneumoperitoneum to suggest viscus perforation. 2. 20 x 12 mm left interpolar region exophytic mildly enhancing lesion, suspicious for renal cell carcinoma. Recommend dedicated MRI kidney protocol. 3. Other findings as described above. Reading Location: [facility] X-[facility] 08/03/24 19:17 IMPRESSION: Nasogastric tube with the tip in the left upper quadrant likely in the body of the stomach. No bowel obstruction. Reading Location: [id number]
--- NOTE | 2024-08-04 07:55 | RAD_ITS ---
PROCEDURE: ABDOMEN SINGLE VIEW (PORTABLE) 08/04/2024 REASON FOR EXAM: SBO TECHNIQUE: Single view abdomen. COMPARISON: August 03, 2024 FINDINGS: There is an enteric tube seen with its tip below the diaphragm on the left, likely in the stomach. There are air-filled small bowel loops visible measuring 3.6 cm in the left abdomen. There are no visible air-fluid levels. Gas and stool is noted in the colon and rectum. There is no visible free air. Contrast is visible in the bladder. There is no acute bony abnormality or visible renal calcification. RAD/Abdomen Single View (Portable) IMPRESSION: There is an enteric tube seen with its tip below the diaphragm on the left, lik jefry in the stomach. There are air-filled small bowel loops visible measuring 3.6 cm in the left abd omen, similar to the prior. Reading Location: [facility]
[2024-08-04 08:20] VITALS: BP 132/67; PULSE 70; RESP 16; TEMP 36.7; O2SAT 94
[2024-08-04] MEDS: 0.9% Normal Saline (1000mL) 1,000 ML 100 ML IV (08:25)
[2024-08-04 08:37] LABS: Absolute Lymphocyte Count 1.22 X10^3/uL (0.83-4.51); Absolute Neutrophil Count 5.2 X10^3/uL (2.0-7.7); Basophil# 0.01 X10^3/uL; Basophil% 0.1 % (0-1); Eosinophil# 0.03 X10^3/uL; Eosinophils% 0.4 % (0-5); Hematocrit 32.5 % (37-47); Hemoglobin 10.7 g/dL (12.0-15.0); Lymphocyte # 1.22 X10^3/ul (0.83-4.51); Lymphocyte % 17.2 % (19-41); Mean Corp Hgb Conc 32.9 g/dL (32-36); Mean Corpuscular Hgb 30.1 pg (27.0-32.0); Mean Corpuscular Volume 91.3 fL (81-99); Mean Platelet Vol. 9.8 fl (6.2-12.0); Monocyte# 0.56 X10^3/uL; Monocyte% 7.9 % (0-10); NRBC Flagged by Analyzer 0 % (0-5); Neutrophil # 5.23 X10^3/uL (2.7-7.7); Platelet Count 201 K/mm3 (150-450); RBC Distribution Width CV 13.2 % (11.6-14.6); RBC Distribution Width SD 44.2 fl (35.1-43.9); Red Blood Count 3.56 M/mm3 (4.2-5.4); White Blood Count 7.1 K/mm3 (4.4-11.0)
[2024-08-04] MEDS: Pantoprazole Sodium 40 MG in 0.9% Normal Saline (100mL MB+) 100 ML 330 MG IV ×2 (09:32→21:40)
[2024-08-04] MEDS: Enoxaparin 30 MG/0.3 ML Syringe SC (09:33)
[2024-08-04 09:43] LABS: ALB/GLOB Ratio 1.4 RATIO (0.9-2.4); AST(SGOT) 29 U/L (<=31); Alanine Aminotransfer ALT/SGPT 16 U/L (<=34); Albumin, Serum 3.5 g/dL (3.4-4.8); Alkaline Phosphatase 53 U/L (35-104); Anion Gap 10 (5-15); BUN 26 mg/dL (4-19); BUN/Creat Ratio 23.2 RATIO (10-20); Calcium,Total 8.8 mg/dL (7.6-11.0); Carbon Dioxide 23.1 mmol/L (21.0-32.0); Chloride 100 mmol/L (98-108); Creatinine, Serum 1.13 mg/dL (0.70-1.20); EST Glomerular Filtration Rate 48 (>60); Estimated Creatinine Clearance 33.94 ml/min (50-250); Globulin 2.5 g/dL (2.2-4.2); Glucose 93 mg/dL (70-99); Potassium 4.7 mmol/L (3.3-5.1); Protein, Total 6.1 g/dL (5.9-8.4); Sodium Level 134 mmol/L (133-145); Total Bilirubin 0.58 mg/dL (0.00-1.30)
--- NOTE | 2024-08-04 12:05 | CON.PCM.UR_ITS ---
Assessment & Plan Assessment/Plan (1) Left renal mass: PLAN: Left renal mass small in the left kidney can follow-up as an outpatient with urology for further workup HPI Consult Data Date of Consult: 08/04/24 HPI Narrative Reason for Consultation: Soft tissue mass in the left kidney HPI Narrative: MARY GALLEGOS, is a 83 F who presents to the hospital with intestinal obstruction she has an NG tube in place CAT scan was done that demonstrates a mass in the left kidney the soft tissue mass. This was seen on the prior CAT scan the mass is fairly small only about 2 to 3 cm in size it is possible it could be malignant possibly could be benign this was explained to the patient the patient was aware of the mass is quite small so no immediate intervention is necessary and in fact in most cases we do observation of these masses in the elderly patient to see if it is really necessary to do any surgery. She can follow-up with me as an outpatient in the office to continue surveillance of this mass once she is discharged in the hospital. [facility] Medical History Hx of small bowel obstruction Cholesterolosis Acid reflux Sleep apnea Arthritis History of back problems Home Medications ?Medication ?Instructions ?Recorded ?Last Taken ?Type echinacea 400 mg capsule 400 mg PO DAILY PRN immunity 10/15/18 10/18/18 History omega-3 fatty acids 1,000 mg 1,000 mg PO DAILY 9 10/18/18 History capsule multivitamin with minerals 1 ea PO DAILY 10/19/1810/05 History ondansetron HCl 4 mg tablet 4 mg PO DAILY PRN nausea a nd 08/04/23 08/03/24 History vomiting sulfamethoxazole 400 1 tab PO QDAY 08/04/23 Unkno wn History mg-trimethoprim 80 mg tablet dicyclomine 20 mg tablet 20 mg PO TID #270 tabs 08/26 Unknown Rx d-mannose 500 mg capsule (AZO 500 mg PO DAILY 08/03/24 Unknown History D-Mannose) famotidine 20 mg tablet (Acid 20 mg PO BID PRN stomach upset 08/03/24 Unknown History Controller) fluticasone propionate 50 1 - 2 spray intranasal DAILY PRN 08/03/24 Unknown History mcg/actuation nasal allergy symptoms spray,suspension (Allergy Relief (fluticasone)) lorazepam 0.5 mg tablet 0.5 mg PO DAILY PRN anxiety 08/03/24 08/02/24 History melatonin 5 mg tablet 5 - 10 mg PO DAILY PRN sleep 08/03/24 Unknown History Allergy/AdvReac Type Severity Reaction Status Date / Time Iodinated Contrast Media Allergy Intermediate Hives Verified 08/03/24 14:52 (contrast dye - iodinated) iohexol Allergy Hives Verified 08/03/24 14:52 codeine AdvReac Nausea/Vom/ Verified 08/03/24 14:52 Diarrhea Family History Father Cancer prostate Brother Cancer brain Seizures Mother Colon cancer Surgical History History of colonoscopy (~2018) Hx laparoscopic cholecystectomy History of open sigmoidectomy History of colonoscopy history excision colon polyps History of arthroscopy of left knee Social History household members: none Smoking Status: Never smoker alcohol intake: never substance use type: does not use Physical Exam Const alert and oriented x3 General Appearance: cooperative HEENT normocephalic and head/scalp atraumatic Eyes PERRL and EOMs intact bilaterally Neck supple, no JVD and no carotid bruits Resp normal respiratory effort, normal air movement and clear to auscultation bilaterally Cardio regular rate and no murmurs GI normal to inspection, nondistended, normoactive bowel sounds and soft to palpation Extremity normal capillary refill General Extremity: no tenderness to palpation of joints or extremities; Negative for edema Skin no rashes or lesions noted and no wounds General Skin Exam: no breakdown Neuro CN's II-XII intact bilaterally Psych affect normal Appearance: appropriate Lab / Micro Data 08/04/24 07:47 08/04/24 07:47 Labs: Laboratory Results - last 24 hr 08/03/24 15:33: WBC 10.3, RBC 4.49, Hgb 13.7, Hct 40.5, MCV 90.2, MCH 30.5, MCHC 33.8, RDW Std Deviation 43.4, RDW Coeff of Shira 13.1, Plt Count 260, MPV 10.0, Immature Gran % (Auto) 0.500, Neut % (Auto) 79.7 H, Lymph % (Auto) 13.2 L, [place] % (Auto) 6.3, Eos % (Auto) 0.1, Baso % (Auto) 0.2, Absolute Neuts (auto) 8.2 H, Absolute Lymphs (auto) 1.35, Nucleated RBC % 0, Sodium 132 L, Potassium 4.7, C hloride 90 L, Carbon Dioxide 27.5, Anion Gap 14, BUN 28 H, Creatinine 1.70 H, E stim Creat Clear Calc 19.83 L, Est GFR (MDRD) Non-Af 30 L, BUN/Creatinine Ratio 16.2, Glucose 118 H, Calcium 11.2 H, Total Bilirubin 0.85, AST 41 H, ALT 22, Alkaline Phosphatase 72, Total Protein 8.1, Albumin 4.7, Globulin 3.4, Albumin/Globulin Ratio 1.4, Lipase 53, Urine Color SEE COMMENT BELOW, Urine Clarity Turbid, Urine pH 5.0, Ur Specific [place] 1.020, Urine Protein 100 H, Urine Glucose (UA) Normal, Urine Ketones 5 H, Urine Occult Blood 50 H, Urine Nitrite Positive H, Urine Bilirubin 6 H, Urine Urobilinogen 8 H, Ur Leukocyte Esterase 100 H, Urine RBC 0 SEEN, Urine WBC >100 SEEN, Ur Squamous Epith Cells 0 SEEN, Urine Bacteria 4+, Urine Mucus 0 SEEN 08/03/24 17:50: WBC 9.3, RBC 4.24, Hgb 12.9, Hct 38.3, MCV 90.3, MCH 30.4, MCHC 33.7, RDW Std Deviation 43.2, RDW Coeff of Shira 13.2, Plt Count 232, MPV 9.5, Immature Gran % (Auto) 0.200, Neut % (Auto) 74.8 H, Lymph % (Auto) 17.3 L, [place] % (Auto) 7.5, Eos % (Auto) 0.1, Baso % (Auto) 0.1, Absolute Neuts (auto) 7.0, Absolute Lymphs (auto) 1.61, Nucleated RBC % 0, Sodium 130 L, Potassium 4.3, C hloride 89 L, Carbon Dioxide 26.7, Anion Gap 14, BUN 29 H, Creatinine 1.55 H, E stim Creat Clear Calc 21.75 L, Est GFR (MDRD) Non-Af 33 L, BUN/Creatinine Ratio 18.6, Glucose 111 H, Lactic Acid 1.5, Calcium 10.6, Total Bilirubin 0.77, AST 34 H, ALT 17, Alkaline Phosphatase 66, Total Protein 7.2, Albumin 4.2, Globulin 3.1, Albumin/Globulin Ratio 1.4 08/04/24 07:47: WBC 7.1, RBC 3.56 L, Hgb 10.7 L, Hct 32.5 L, MCV 91.3, MCH 30.1, MCHC 32.9, RDW Std Deviation 44.2 H, RDW Coeff of Shira 13.2, Plt Count 201, MPV 9.8, Immature Gran % (Auto) 0.400, Neut % (Auto) 74.0 H, Lymph % (Auto) 17.2 L, [place] % (Auto) 7.9, Eos % (Auto) 0.4, Baso % (Auto) 0.1, Absolute Neuts (auto) 5.2, Absolute Lymphs (auto) 1.22, Nucleated RBC % 0, Sodium 134, Potassium 4.7, Chloride 100, Carbon Dioxide 23.1, Anion Gap 10, BUN 26 H, Creatinine 1.13, E stim Creat Clear Calc 33.94 L, Est GFR (MDRD) Non-Af 48 L, BUN/Creatinine Ratio 23.2 H, Glucose 93, Calcium 8.8, Total Bilirubin 0.58, AST 29, ALT 16, Alkaline Phosphatase 53, Total Protein 6.1, Albumin 3.5, Globulin 2.5, Albumin/Globulin Ratio 1.4 Micro: Microbiology 08/03/24 15:33 Urine, Clean Catch Urine Culture - Preliminary GNR lactose lens cementer Imaging Radiology Impression Abdomen/Pelvis CT 08/03/24 17:25 IMPRESSION: 1. Multiple dilated small bowel loops, measuring up to 4.1 cm with transition point at the duodeno-jejunal junction, compatible small bowel obstruction. No pneumoperitoneum to suggest viscus perforation. 2. 20 x 12 mm left interpolar region exophytic mildly enhancing lesion, suspicious for renal cell carcinoma. Recommend dedicated MRI kidney protocol. 3. Other findings as described above. Reading Location: [facility] X-Ray 08/03/24 19:17 IMPRESSION: Nasogastric tube with the tip in the left upper quadrant likely in the body of the stomach. No bowel obstruction. Reading Location: [id number] 08/04/24 07:55 IMPRESSION: There is an enteric tube seen with its tip below the diaphragm on the left, likely in the stomach. There are air-filled small bowel loops visible measuring 3.6 cm in the left abdomen, similar to the prior. Reading Location: [facility]
[2024-08-04 14:00] VITALS: BP 146/68; PULSE 53; RESP 16; TEMP 36.6; O2SAT 97
--- NOTE | 2024-08-04 14:33 | CHAPLAIN ---
Type of Pastoral Visit _x__ Initial Visit ___ Follow-up Visit ___ On-call Visit ___ General Patient Visit ___ Spiritual Assessment ___ Family Conference ___ Bereavement ___ Rapid Response ___ Code Blue ___ Other (describe below) Pastoral Care Referral From _x__ Patient ___ Family ___ Nurse ___ Physician ___ Automation Engineer ___ Electrical Laboratory Technician ___ Other (describe below) Sacrament/Intervention _x__ Active listening ___ Anointing ___ Jewish ___ Bereavement ___ Communion ___ [place] exploration ___ _x__ Life review _x__ Prayer ___ Reconciliation ___ Sacrament of Sick _x__ Supportive presence ___ Wedding ___ Other (describe below) Pastoral Comments patient is welcoming and acknowledges her discomfort of ng tube; pt has had this experience before and is not 'thrilled' about it; pt is very talkative and gives details about her life; pt was in the summertime last year after 63 years of marriage and acknowledges how hard it is to live without him; pt is making decisions about moving and entering into a care home community; pt has a good connection to her concepción, baptism, and prays daily; pt is talkative and welcomes prayer for herself and her needs today
--- NOTE | 2024-08-04 15:05 | CASEMGMT ---
RN?CM?AIR CONDITIONING SHEET METAL INSTALLER?CM?to room to meet with patient for initial transition planning/care coordination?assessment.?RN?CM?introduced self and role at [facility].? Pt voices understanding and consents to?assessment?at this time.? Pt resting in bed in no distress at this time.? Pt is A/O at this time and answers all questions appropriately.?? Care providers, pharmacy, and demographics verified/updated at this time. PCP: Dr Narayan Specialists: none Preferred Pharmacy: [facility] Would like [id number]. Insurance: [email or web address] [facility] Prescription Benefit:?Yes LNOK: daughter, Mercedes. Pt also has 3 sons Living Arrangements: Lives alone in one-story home w/basement and 4 steps total to enter. Denies difficulty w/stairs. Independent w/ADL's and IADL's, does yard work, and takes her dog for a walk daily. Transportation:?Pt states drives self and states no transportation concerns at this time.?Dtr will take her home @ [facility] DME: ? Denies using any DME and denies needs. She has DME available that she does not use that was her late husbands. HHC/SNF: No hx of either. No needs identified. Pt denies any needs and denies need for OP therapy. Pt wishes to return home and states has no concerns with going home at time of discharge. CM?to follow for any discharge planning/needs.? Pt voices no further concerns/needs at this time.? Advised pt to ask for?CM?if any further questions/concerns/needs arise.? Voices understanding. PLAN:?Home ? Eliane OLEARYN?RN?CM
[2024-08-04] MEDS: Ceftriaxone 1 GM/50 ML BAG IV (22:08)
[2024-08-04] MEDS: 0.9% Saline Lock 10 ML Syringe IV (22:10)
[2024-08-04 22:15] VITALS: BP 127/79; PULSE 62; RESP 16; TEMP 36.5; O2SAT 98
[2024-08-05] VITALS (7 sets, daily range): BP systolic 122–163; BP diastolic 73–90; PULSE 59–68; RESP 16–20; TEMP 36.4–36.9; O2SAT 94–99; BMI 20.6
[2024-08-05 05:54] LABS: Absolute Lymphocyte Count 1.61 X10^3/uL (0.83-4.51); Absolute Neutrophil Count 2.6 X10^3/uL (2.0-7.7); Basophil# 0.02 X10^3/uL; Basophil% 0.4 % (0-1); Eosinophil# 0.17 X10^3/uL; Eosinophils% 3.5 % (0-5); Hematocrit 31.5 % (37-47); Hemoglobin 10.5 g/dL (12.0-15.0); Lymphocyte # 1.61 X10^3/ul (0.83-4.51); Lymphocyte % 33.3 % (19-41); Mean Corp Hgb Conc 33.3 g/dL (32-36); Mean Corpuscular Hgb 30.3 pg (27.0-32.0); Mean Platelet Vol. 9.4 fl (6.2-12.0); Monocyte# 0.44 X10^3/uL; Monocyte% 9.1 % (0-10); NRBC Flagged by Analyzer 0 % (0-5); Neutrophil # 2.58 X10^3/uL (2.7-7.7); Neutrophil % 53.5 % (47-70); Platelet Count 185 K/mm3 (150-450); RBC Distribution Width SD 42.6 fl (35.1-43.9); Red Blood Count 3.46 M/mm3 (4.2-5.4); White Blood Count 4.8 K/mm3 (4.4-11.0)
[2024-08-05 06:19] LABS: Magnesium 2.1 mg/dL (1.5-2.2); Phosphorus 2.3 mg/dL (2.7-4.5)
[2024-08-05 06:39] LABS: Anion Gap 7 (5-15); BUN 15 mg/dL (4-19); BUN/Creat Ratio 18.1 RATIO (10-20); Calcium,Total 8.5 mg/dL (7.6-11.0); Chloride 104 mmol/L (98-108); Creatinine, Serum 0.85 mg/dL (0.70-1.20); EST Glomerular Filtration Rate 68 (>60); Estimated Creatinine Clearance 44.41 ml/min (50-250); Glucose 89 mg/dL (70-99); Potassium 4.2 mmol/L (3.3-5.1); Sodium Level 135 mmol/L (133-145)
--- NOTE | 2024-08-05 08:21 | PCM.PN.HOSP ---
Reason for Visit Reason for Visit: Diagnoses Unspecified intestinal obstruction, unspecified as to partial versus complete obstruction (08/03/24) Other specified disorders of kidney and ureter (08/03/24) Urinary tract infection, site not specified (08/03/24) Objective Data Objective Data Vital Signs: Vital Signs Temp Pulse Resp BP Pulse Ox O2 Del Method 98.2 F 68 16 122/78 H 94 Room Air 08/05/24 04:17 08/05/24 04:17 08/05/24 04:17 08/05/24 04:17 08/05/24 07:19 08/05/24 07:19 Oxygen Delivery Method Room Air Weight: 56.1 kg Body Mass Index (BMI) 20.6 Intake & Output: Intake and Output for Last 24 Hours 08/03/24 08/04/24 08/05/24 23:59 23:59 23:59 Intake Total 1410 / 1410 2541.67 / 2541.67 Output Total 550 / 550 Balance 1410 / 1160 1990.67 / Lab / Micro Data 08/05/24 05:40 08/05/24 05:40 Labs: Laboratory Results - last 24 hr 08/04/24 07:47: WBC 7.1, RBC 3.56 L, Hgb 10.7 L, Hct 32.5 L, MCV 91.3, MCH 30.1, MCHC 32.9, RDW Std Deviation 44.2 H, RDW Coeff of Shira 13.2, Plt Count 201, MPV 9.8, Immature Gran % (Auto) 0.400, Neut % (Auto) 74.0 H, Lymph % (Auto) 17.2 L, [place] % (Auto) 7.9, Eos % (Auto) 0.4, Baso % (Auto) 0.1, Absolute Neuts (auto) 5.2, Absolute Lymphs (auto) 1.22, Nucleated RBC % 0, Sodium 134, Potassium 4.7, Chloride 100, Carbon Dioxide 23.1, Anion Gap 10, BUN 26 H, Creatinine 1.13, Estim Creat Clear Calc 33.94 L, Est GFR (MDRD) Non-Af 48 L, BUN/Creatinine Ratio 23.2 H, Glucose 93, Calcium 8.8, Total Bilirubin 0.58, AST 29, ALT 16, Alkaline Phosphatase 53, Total Protein 6.1, Albumin 3.5, Globulin 2.5, Albumin/Globulin Ratio 1.4 08/05/24 05:40: WBC 4.8, RBC 3.46 L, Hgb 10.5 L, Hct 31.5 L, MCV 91.0, MCH 30.3, MCHC 33.3, RDW Std Deviation 42.6, RDW Coeff of Shira 13.0, Plt Count 185, MPV 9.4, Immature Gran % (Auto) 0.200, Neut % (Auto) 53.5, Lymph % (Auto) 33.3, [place] % (Auto) 9.1, Eos % (Auto) 3.5, Baso % (Auto) 0.4, Absolute Neuts (auto) 2.6, Absolute Lymphs (auto) 1.61, Nucleated RBC % 0, Sodium 135, Potassium 4.2, Chloride 104, Carbon Dioxide 25.0, Anion Gap 7, BUN 15, Creatinine 0.85, Estim Creat Clear Calc 44.41 L, Est GFR (MDRD) Non-Af 68, BUN/Creatinine Ratio 18.1, Glucose 89, Calcium 8.5, Phosphorus 2.3 L, Magnesium 2.1 Micro: Microbiology 08/03/24 15:33 Urine, Clean Catch Urine Culture - Final Escherichia coli Physical Exam Narrative GENERAL: cooperative HEENT: Atraumatic; normocephalic EYES; Anicteric, Normal Conjunctiva NECK; supple, normal thyroid, RESPIRATORY: Diminished to auscultation CARDIOVASCULAR: Regular S1 S2, GI: soft, normoactive bowel sounds, : No Renal angle tenderness; EXTREMITIES: No edema, no clubbing, MUSCULOSKELETAL: no muscle wasting NEURO: Awake; no lateralizing signs. SKIN: No Rash PSYCH; Flat affect Assessment & Plan Assessment/Plan (1) SBO (small bowel obstruction): (2) UTI (urinary tract infection): PLAN: Plan Patient is an 83-year-old lady with previous abdominal surgery (sigmoidectomy for volvulus, cholecystectomy and excision of colonic polyps) who presented with abdominal pain with associated nausea and vomiting and abdominal distention. Imaging studies came back consistent with Small bowel obstruction admitted to regular nursing floor for further management 1. Small bowel obstruction ? Suspected to be secondary to adhesions following patient previous surgery. CT of the abdomen and pelvis obtained on admission did showMultiple dilated small bowel loops, measuring up to 4.1 cm with transition point at the duodeno-jejunal junction, compatible small bowel obstruction. No pneumoperitoneum to suggest viscus perforation. Patient admitted to regular nursing floor conservative management with bowel rest, NG tube to suction pain medication and antinausea medication initiated consult was placed to general surgery patient has been seen by Dr. Harris his note and recommendations reviewed 2. Acute complicated urinary tract infection ? Patient started on ceftriaxone urine culture sent we will follow-up on result 3. Renal mass ? Incidentally noted mildly enhancing exophytic CT scan with 20 x 12 mm left interpolar region exophytic mildly enhancing lesion suspicious for renal cell carcinoma, plan is for patient to undergo follow-up MRI kidney protocol for further evaluation. Consult was placed to urology. Family request 4. Obstructive sleep apnea -PAP therapy encouraged 5. Allergic rhinitis ? Patient was on fluticasone did continue 6. Anxiety disorder ? Patient is on lorazepam as needed 7. DVT prophylaxis ? Subcu Lovenox. Updated patient's daughter Mercedes on [phone] on mom's condition
[2024-08-05] MEDS: Pantoprazole Sodium 40 MG in 0.9% Normal Saline (100mL MB+) 100 ML 330 MG IV ×2 (09:19→22:43)
[2024-08-05] MEDS: 0.9% Saline Lock 10 ML Syringe IV ×3 (09:19→22:43)
--- NOTE | 2024-08-05 09:31 | PCM.DC.SUM ---
Providers Date of Admission: 08/03/24 Date of Discharge: 08/05/24 Primary Care Physician: Dr. Andria Narayan, DO Consultations 08/03/24 21:10 Consult: General Surgery Routine Consulting Provider: Delvin Harris Reason for Consult: SBO EMERGENT Consult: No Notified: Yes Date Notified: 08/03/24 Time Notified: 20:35 Method of Notification: ED Physician Initiated 08/04/24 09:21 Consult: Urology Routine Consulting Provider: Osman Ruelas Reason for Consult: Left Kidney EMERGENT Consult: No Notified: Yes Date Notified: 08/04/24 Time Notified: 10:53 Method of Notification: Verbal Reason For Visit: SBO, UTI, JAYA Diagnosis Discharge Diagnosis (1) SBO (small bowel obstruction): Status: Acute Code(s): K56.609 - Unspecified intestinal obstruction, unspecified as to partial versus complete obstruction (2) UTI (urinary tract infection): Status: Acute Code(s): N39.0 - Urinary tract infection, site not specified Plan Patient is an 83-year-old lady with previous abdominal surgery (sigmoidectomy for volvulus, cholecystectomy and excision of colonic polyps) who presented with abdominal pain with associated nausea and vomiting and abdominal distention. Imaging studies came back consistent with Small bowel obstruction admitted to regular nursing floor for further management 1. Small bowel obstruction ? Suspected to be secondary to adhesions following patient previous surgery. CT of the abdomen and pelvis obtained on admission did showMultiple dilated small bowel loops, measuring up to 4.1 cm with transition point at the duodeno-jejunal junction, compatible small bowel obstruction. No pneumoperitoneum to suggest viscus perforation. Patient admitted to regular nursing floor conservative management with bowel rest, NG tube to suction pain medication and antinausea medication initiated consult was placed to general surgery patient has been seen by Dr. Harris his note and recommendations reviewed ? Patient's symptoms resolved with conservative management 2. Acute complicated urinary tract infection with E. coli ? Patient started on ceftriaxone urine culture sent we will follow-up on result ? Patient was discharged home on ciprofloxacin 3. Renal mass ? Incidentally noted mildly enhancing exophytic CT scan with 20 x 12 mm left interpolar region exophytic mildly enhancing lesion suspicious for renal cell carcinoma, plan is for patient to undergo follow-up MRI kidney protocol for further evaluation. Consult was placed to urology. Family request ? Patient was seen in consultation by Dr Ruelas with urology plans for patient to follow-up with subsequent monitoring 4. Obstructive sleep apnea -PAP therapy encouraged 5. Allergic rhinitis ? Patient was on fluticasone did continue 6. Anxiety disorder ? Patient is on lorazepam as needed 7. DVT prophylaxis ? Subcu Lovenox. Medications at Discharge Home Medications echinacea 400 mg capsule 400 mg PO DAILY PRN immunity 10/15/18 omega-3 fatty acids 1,000 mg capsule 1,000 mg PO DAILY 10/15/18 multivitamin with minerals 1 ea PO DAILY 10/19/18 ondansetron HCl 4 mg tablet 4 mg PO DAILY PRN nausea and vomiting 08/04/23 dicyclomine 20 mg tablet 20 mg PO TID #270 tabs 08/27/23 d-mannose 500 mg capsule (AZO D-Mannose) 500 mg PO DAILY 08/03/24 famotidine 20 mg tablet (Acid Controller) 20 mg PO BID PRN stomach upset 08/03/24 fluticasone propionate 50 mcg/actuation nasal spray,suspension (Allergy Relief (fluticasone)) 1 - 2 spray intranasal DAILY PRN allergy symptoms 08/03/24 lorazepam 0.5 mg tablet 0.5 mg PO DAILY PRN anxiety 08/03/24 melatonin 5 mg tablet 5 - 10 mg PO DAILY PRN sleep 08/03/24 ciprofloxacin HCl 500 mg tablet 500 mg PO BID #14 tabs 08/05/24 Hospital Course Summary of Care Provided Minutes Spent on Discharge: 32 Physical Exam Narrative GENERAL: cooperative HEENT: Atraumatic; normocephalic EYES; Anicteric, Normal Conjunctiva NECK; supple, normal thyroid, RESPIRATORY: Diminished to auscultation CARDIOVASCULAR: Regular S1 S2, GI: soft, normoactive bowel sounds, : No Renal angle tenderness; EXTREMITIES: No edema, no clubbing, MUSCULOSKELETAL: no muscle wasting NEURO: Awake; no lateralizing signs. SKIN: No Rash PSYCH; Flat affect Weight / BMI Weight Weight: 56.1 kg Body Mass Index (BMI) 20.6 ABG / Lab / Microbiology Data 08/05/24 05:40 08/05/24 05:40 Laboratory: Laboratory Results - last 24 hr 08/04/24 07:47: Sodium 134, Potassium 4.7, Chloride 100, Carbon Dioxide 23.1, Anion Gap 10, BUN 26 H, Creatinine 1.13, Estim Creat Clear Calc 33.94 L, Est GFR (MDRD) Non-Af 48 L, BUN/Creatinine Ratio 23.2 H, Glucose 93, Calcium 8.8, Total Bilirubin 0.58, AST 29, ALT 16, Alkaline Phosphatase 53, Total Protein 6.1, Albumin 3.5, Globulin 2.5, Albumin/Globulin Ratio 1.4 08/05/24 05:40: WBC 4.8, RBC 3.46 L, Hgb 10.5 L, Hct 31.5 L, MCV 91.0, MCH 30.3, MCHC 33.3, RDW Std Deviation 42.6, RDW Coeff of Shira 13.0, Plt Count 185, MPV 9.4, Immature Gran % (Auto) 0.200, Neut % (Auto) 53.5, Lymph % (Auto) 33.3, [place] % (Auto) 9.1, Eos % (Auto) 3.5, Baso % (Auto) 0.4, Absolute Neuts (auto) 2.6, Absolute Lymphs (auto) 1.61, Nucleated RBC % 0, Sodium 135, Potassium 4.2, Chloride 104, Carbon Dioxide 25.0, Anion Gap 7, BUN 15, Creatinine 0.85, Estim Creat Clear Calc 44.41 L, Est GFR (MDRD) Non-Af 68, BUN/Creatinine Ratio 18.1, Glucose 89, Calcium 8.5, Phosphorus 2.3 L, Magnesium 2.1 Microbiology: Microbiology 08/03/24 15:33 Urine, Clean Catch Urine Culture - Final Escherichia coli D/C Instructions Discharge Diet: No restrictions Discharge Activity: Return to Normal Activity Call your doctor if you observe: Fever of 101 or Higher, Shortness of breath, Fainting spells and Chest pain DC O2, CPAP, BIPAP Needs Home O2 Discharge instructions: No Meaningful Use Info Meaningful Use Meaningful Use Diagnoses (Choose all that apply): None applicable Ischemic Stroke Statin Dosing Therapy Reference: STATIN DOSE THERAPY REFERENCE: * Patients > 75 years receive moderate or high dose statin therapy. * Patients 75 years or YOUNGER should receive HIGH intensity statin dose unless contraindicated. You will be required to document reason for non-treatment if statin daily dose does not meet guidelines. HIGH DOSE STATIN THERAPY DAILY Atorvastatin > than or = to 40 mg Rosuvastatin > than or = to 20 mg Amlodipine + Atorvastatin > than or = to 2.5/40 mg Ezetimibe + Simvastatin 10/80 mg Simvastatin 80mg Discharge Plan Admission Admit Date/Time: 08/03/24 20:29 Attending Provider: Tae Chopra Primary Care Provider: Andria Narayan Consulting Providers: Delvin Harris; Tierra Humphreys; Osman Ruelas Discharge Orders/Prescriptions Prescriptions: New ciprofloxacin HCl 500 mg tablet 500 mg PO BID Qty: 14 0RF Continued omega-3 fatty acids 1,000 mg capsule 1,000 mg PO DAILY echinacea 400 mg capsule 400 mg PO DAILY PRN (Reason: immunity) Patient Comments: PRN WHEN SICK ondansetron HCl 4 mg tablet 4 mg PO DAILY PRN (Reason: nausea and vomiting) dicyclomine 20 mg tablet 20 mg PO TID Qty: 270 0RF multivitamin with minerals 1 EACH tablet 1 ea PO DAILY melatonin 5 mg tablet 5 - 10 mg PO DAILY PRN (Reason: sleep) lorazepam 0.5 mg tablet 0.5 mg PO DAILY PRN (Reason: anxiety) AZO D-Mannose 500 mg capsule 500 mg PO DAILY famotidine [Acid Controller] 20 mg tablet 20 mg PO BID PRN (Reason: stomach upset) fluticasone propionate [Allergy Relief (fluticasone)] 50 mcg/actuation spray,suspension 1 - 2 spray intranasal DAILY PRN (Reason: allergy symptoms) Rx Instructions: administer into each nostril Discontinued sulfamethoxazole-trimethoprim 400-80 mg tablet 1 tab PO QDAY Referrals / Follow Up: Osman Ruelas MD [Med Staff - Active Staff] - Within 1 Month Andria Narayan DO [Primary Care Provider] - Within 2 Weeks Disposition Disposition (needs filled in before D/C Order can be placed): Home, Self Care Charges/Coding Visit Charges Inpatient E&M: 29750 Disch Hosp >30min
--- NOTE | 2024-08-05 09:43 | PCM.PN.SRG ---
Subjective Subjective Patient is tolerating clears and would like to try regular diet. She had a bowel movement this morning and she is passing flatus. She is not having any abdominal pain or nausea or vomiting. Objective Data Objective Data Vital Signs: Vital Signs Temp Pulse Resp BP Pulse Ox O2 Del Method 97.9 F 67 18 163/82 H 99 Room Air 08/05/24 08:32 08/05/24 08:32 08/05/24 08:32 08/05/24 08:32 08/05/24 08:32 08/05/24 08:32 Oxygen Delivery Method Room Air Weight: 123 lb 10.869 oz Body Mass Index (BMI) 20.6 Intake & Output: Intake and Output for Last 24 Hours 08/03/24 08/04/24 08/05/24 23:59 23:59 23:59 Intake Total 1410 / 1410 2541.67 / 2541.67 Output Total 550 / 550 Balance 1410 / 1160 1990.67 / 1990.67 Lab / Micro Data 08/05/24 05:40 08/05/24 05:40 Labs: Laboratory Results - last 24 hr 08/04/24 07:47: Sodium 134, Potassium 4.7, Chloride 100, Carbon Dioxide 23.1, Anion Gap 10, BUN 26 H, Creatinine 1.13, Estim Creat Clear Calc 33.94 L, Est GFR (MDRD) Non-Af 48 L, BUN/Creatinine Ratio 23.2 H, Glucose 93, Calcium 8.8, Total Bilirubin 0.58, AST 29, ALT 16, Alkaline Phosphatase 53, Total Protein 6.1, Albumin 3.5, Globulin 2.5, Albumin/Globulin Ratio 1.4 08/05/24 05:40: WBC 4.8, RBC 3.46 L, Hgb 10.5 L, Hct 31.5 L, MCV 91.0, MCH 30.3, MCHC 33.3, RDW Std Deviation 42.6, RDW Coeff of Shira 13.0, Plt Count 185, MPV 9.4, Immature Gran % (Auto) 0.200, Neut % (Auto) 53.5, Lymph % (Auto) 33.3, [place] % (Auto) 9.1, Eos % (Auto) 3.5, Baso % (Auto) 0.4, Absolute Neuts (auto) 2.6, Absolute Lymphs (auto) 1.61, Nucleated RBC % 0, Sodium 135, Potassium 4.2, Chloride 104, Carbon Dioxide 25.0, Anion Gap 7, BUN 15, Creatinine 0.85, Estim Creat Clear Calc 44.41 L, Est GFR (MDRD) Non-Af 68, BUN/Creatinine Ratio 18.1, Glucose 89, Calcium 8.5, Phosphorus 2.3 L, Magnesium 2.1 Micro: Microbiology 08/03/24 15:33 Urine, Clean Catch Urine Culture - Final Escherichia coli Physical Exam Const oriented x3 and no apparent distress Resp normal respiratory effort GI soft to palpation and non-tender Assessment & Plan Assessment/Plan (1) Complete obstruction of small intestine: PLAN: Patient has small bowel obstruction versus ileus. She also has noted UTI. The patient seems to be tolerating clear liquids with no nausea or vomiting or pain. She had a bowel movement this morning and is passing flatus. I will advance her to a regular diet and if she tolerates that she may be discharged home. Delvin Harris MD Pager: [facility] [address] [place] [address] [address] [place] [address] Office:
[2024-08-05] MEDS: Potassium Phosphate 40 MM in 0.9% Normal Saline (500mL Bag) 500 ML 62.5 MM IV (10:00)
--- NOTE | 2024-08-05 13:50 | CASEMGMT ---
Addendum entered by Bre Morse 08/05/24 14:49: TC back to pharmacy, spoke with Doris, she is aware that pt dc has been cancelled currently. Original Note: TC to [facility], spoke with Doris, requested pt med be delivered to the room. Pt with dc order in.
--- NOTE | 2024-08-05 14:00 | RAD_ITS ---
PROCEDURE: SMALL BOWEL SERIES ONLY, 08/05/2024 REASON FOR EXAM: SBO TECHNIQUE: Center Manager AP images of the abdomen/pelvis were obtained. Subsequent serial imaging of the abdomen/pelvis was performed immediately following ingestion of Gastrografin oral contrast, at roughly 15 minutes, 30 minutes, 60 minutes, 80 minutes, 120 minutes, 3 hours, and finally at roughly 6 hours post-ingestion. Note the exam was performed outside the radiology department, by technologist, not in the presence of a radiologist. COMPARISON: 08/04/2024 FINDINGS: On breaker unit assembler images, there is no visible bowel dilatation. Interval removal of the enteric tube. Degenerative changes of the hips and lumbar spine. On images labeled immediate through 30 minute images, contrast opacifies the stomach and proximal duodenum. On images labeled 60 minutes, contrast has propagated through mid to distal small bowel loops but not into the colon. On images labeled 90 minutes, contrast opacifies the cecum and ascending colon to at least the level of the hepatic flexure. On images labeled 3 hours, contrast reaches the level of the colonic splenic flexure. On images labeled 6 hours, contrast reaches the level of the descending colon and probably the rectum. Cecum mildly dilated to 8.6 cm. No definitive small bowel dilatation allowing for superimposition of loops RAD/Small Bowel Series Only IMPRESSION: 1. Contrast reaches the cecum/proximal colon on images labeled 90 minutes. Thi s excludes complete small-bowel obstruction although technically 90 minutes represents borderline prolonged small bowel tra nsit time and therefore persistent partial obstruction and/or ileus are possible. 2. Mild dilatation of the cecum may additionally represent colonic ileus. 3. Additional description as above. Reading Location: [id number]
--- NOTE | 2024-08-05 14:55 | PN.HOSP_ITS ---
Reason for Visit Reason for Visit: Diagnoses Complete intestinal obstruction, unspecified as to cause (08/03/24) Unspecified intestinal obstruction, unspecified as to partial versus complete obstruction (08/03/24) Other specified disorders of kidney and ureter (08/03/24) Urinary tract infection, site not specified (08/03/24) Subjective Subjective Patient seen did states she had a good bowel movement and tolerated her diet. A discharge order was subsequently placed however prior to patient leaving she did complain of feeling bloated. General surgery contacted request was placed for patient to undergo small bowel follow-through. Patient discharged subsequently discontinued Objective Data Objective Data Vital Signs: Vital Signs Temp Pulse Resp BP Pulse Ox O2 Del Method 97.9 F 67 18 163/82 H 99 Room Air 08/05/24 08:32 08/05/24 08:32 08/05/24 08:32 08/05/24 08:32 08/05/24 08:32 08/05/24 08:32 Oxygen Delivery Method Room Air Weight: 56.1 kg Body Mass Index (BMI) 20.6 Intake & Output: Intake and Output for Last 24 Hours 08/03/24 08/04/24 08/05/24 23:59 23:59 23:59 Intake Total 1410 / 1410 2541.67 / 2541.67 192.29 / 192.29 Output Total 550 / 550 Balance 1410 / 1160 1990.67 / 1990. 192.29 / 192.29 Lab / Micro Data 08/05/24 05:40 08/05/24 05:40 Labs: Laboratory Results - last 24 hr 08/05/24 05:40: WBC 4.8, RBC 3.46 L, Hgb 10.5 L, Hct 31.5 L, MCV 91.0, MCH 30.3, MCHC 33.3, RDW Std Deviation 42.6, RDW Coeff of Shira 13.0, Plt Count 185, MPV 9.4, Immature Gran % (Auto) 0.200, Neut % (Auto) 53.5, Lymph % (Auto) 33.3, [place] % (Auto) 9.1, Eos % (Auto) 3.5, Baso % (Auto) 0.4, Absolute Neuts (auto) 2.6, Absolute Lymphs (auto) 1.61, Nucleated RBC % 0, Sodium 135, Potassium 4.2, Chloride 104, Carbon Dioxide 25.0, Anion Gap 7, BUN 15, Creatinine 0.85, Estim Creat Clear Calc 44.41 L, Est GFR (MDRD) Non-Af 68, BUN/Creatinine Ratio 18.1, Glucose 89, Calcium 8.5, Phosphorus 2.3 L, Magnesium 2.1 Micro: Microbiology 08/03/24 15:33 Urine, Clean Catch Urine Culture - Final Escherichia coli Physical Exam Narrative GENERAL: cooperative HEENT: Atraumatic; normocephalic EYES; Anicteric, Normal Conjunctiva NECK; supple, normal thyroid, RESPIRATORY: Diminished to auscultation CARDIOVASCULAR: Regular S1 S2, GI: soft, normoactive bowel sounds, : No Renal angle tenderness; EXTREMITIES: No edema, no clubbing, MUSCULOSKELETAL: no muscle wasting NEURO: Awake; no lateralizing signs. SKIN: No Rash PSYCH; Flat affect Assessment & Plan Assessment/Plan (1) SBO (small bowel obstruction): (2) UTI (urinary tract infection): PLAN: Plan Patient is an 83-year-old lady with previous abdominal surgery (sigmoidectomy for volvulus, cholecystectomy and excision of colonic polyps) who presented with abdominal pain with associated nausea and vomiting and abdominal distention. Imaging studies came back consistent with Small bowel obstruction admitted to regular nursing floor for further management 1. Small bowel obstruction ? Suspected to be secondary to adhesions following patient previous surgery. CT of the abdomen and pelvis obtained on admission did showMultiple dilated small bowel loops, measuring up to 4.1 cm with transition point at the duodeno-jejunal junction, compatible small bowel obstruction. No pneumoperitoneum to suggest viscus perforation. Patient admitted to regular nursing floor conservative management with bowel rest, NG tube to suction pain medication and antinausea medication initiated consult was placed to general surgery patient has been seen by Dr. Harris his note and recommendations reviewed ? Patient's symptoms resolved with conservative management ?Patient seen did states she had a good bowel movement and tolerated her diet. A discharge order was subsequently placed however prior to patient leaving she did complain of feeling bloated. General surgery contacted request was placed for patient to undergo small bowel follow-through. Patient discharged subsequently discontinued 2. Acute complicated urinary tract infection with E. coli ? Patient started on ceftriaxone urine culture sent we will follow-up on result ? Patient was discharged home on ciprofloxacin 3. Renal mass ? Incidentally noted mildly enhancing exophytic CT scan with 20 x 12 mm left interpolar region exophytic mildly enhancing lesion suspicious for renal cell carcinoma, plan is for patient to undergo follow-up MRI kidney protocol for further evaluation. Consult was placed to urology. Family request ? Patient was seen in consultation by Dr Ruelas with urology plans for patient to follow-up with subsequent monitoring 4. Obstructive sleep apnea -PAP therapy encouraged 5. Allergic rhinitis ? Patient was on fluticasone did continue 6. Anxiety disorder ? Patient is on lorazepam as needed 7. DVT prophylaxis ? Subcu Lovenox. Charges/Coding Visit Charges Inpatient E&M: 97057 Subs Hosp L2
--- NOTE | 2024-08-05 15:40 | NURSING ---
Delayed vital signs d/t pt being in xray for bowel follow through.
[2024-08-05] MEDS: DiphenhydrAMINE 50 MG/ML Syringe 25 MG IV (17:59)
[2024-08-05] MEDS: Ceftriaxone 1 GM/50 ML BAG IV (23:13)
[2024-08-06 01:37] VITALS: BMI 20.6
[2024-08-06 06:52] VITALS: BP 149/78; PULSE 57; RESP 18; TEMP 36.8; O2SAT 99
[2024-08-06] MEDS: 0.9% Saline Lock 10 ML Syringe IV (06:57)
[2024-08-06 07:22] LABS: Absolute Lymphocyte Count 1.76 X10^3/uL (0.83-4.51); Absolute Neutrophil Count 2.3 X10^3/uL (2.0-7.7); Basophil# 0.02 X10^3/uL; Basophil% 0.4 % (0-1); Eosinophil# 0.14 X10^3/uL; Hematocrit 31.7 % (37-47); Hemoglobin 10.6 g/dL (12.0-15.0); Lymphocyte # 1.76 X10^3/ul (0.83-4.51); Lymphocyte % 38.1 % (19-41); Mean Corp Hgb Conc 33.4 g/dL (32-36); Mean Corpuscular Hgb 30.5 pg (27.0-32.0); Mean Corpuscular Volume 91.4 fL (81-99); Mean Platelet Vol. 9.4 fl (6.2-12.0); Monocyte# 0.37 X10^3/uL; NRBC Flagged by Analyzer 0 % (0-5); Neutrophil # 2.32 X10^3/uL (2.7-7.7); Neutrophil % 50.3 % (47-70); Platelet Count 189 K/mm3 (150-450); RBC Distribution Width SD 43.1 fl (35.1-43.9); Red Blood Count 3.47 M/mm3 (4.2-5.4); White Blood Count 4.6 K/mm3 (4.4-11.0)
[2024-08-06 07:38] VITALS: O2SAT 95
[2024-08-06 07:46] LABS: Anion Gap 9 (5-15); BUN 16 mg/dL (4-19); BUN/Creat Ratio 21.3 RATIO (10-20); Calcium,Total 8.4 mg/dL (7.6-11.0); Chloride 104 mmol/L (98-108); Creatinine, Serum 0.73 mg/dL (0.70-1.20); EST Glomerular Filtration Rate 82 (>60); Estimated Creatinine Clearance 47.19 ml/min (50-250); Glucose 91 mg/dL (70-99); Potassium 3.9 mmol/L (3.3-5.1); Sodium Level 136 mmol/L (133-145)
--- NOTE | 2024-08-06 09:20 | PCM.PN.HOSP ---
Reason for Visit Reason for Visit: Diagnoses Complete intestinal obstruction, unspecified as to cause (08/03/24) Unspecified intestinal obstruction, unspecified as to partial versus complete obstruction (08/03/24) Other specified disorders of kidney and ureter (08/03/24) Urinary tract infection, site not specified (08/03/24) Subjective Subjective Patient underwent small bowel follow-through the day prior awaiting result prior to making a determination regarding patient's discharge Objective Data Objective Data Vital Signs: Vital Signs Temp Pulse Resp BP Pulse Ox O2 Del Method 98.2 F 57 L 18 149/78 H 95 Room Air 08/06/24 06:52 08/06/24 06:52 08/06/24 06:52 08/06/24 06:52 08/06/24 07:38 08/06/24 07:38 Oxygen Delivery Method Room Air Weight: 56.1 kg Body Mass Index (BMI) 20.6 Intake & Output: Intake and Output for Last 24 Hours 08/04/24 08/05/24 08/06/24 23:59 23:59 23:59 Intake Total 2541.67 / 2541.67 352.2933 / 352.2933 Output Total 550 / 550 Balance / 352.2933 / 352.2933 Lab / Micro Data 08/06/24 07:05 08/06/24 07:05 Labs: Laboratory Results - last 24 hr 08/06/24 07:05: WBC 4.6, RBC 3.47 L, Hgb 10.6 L, Hct 31.7 L, MCV 91.4, MCH 30.5, MCHC 33.4, RDW Std Deviation 43.1, RDW Coeff of Shira 13.0, Plt Count 189, MPV 9.4, Immature Gran % (Auto) 0.200, Neut % (Auto) 50.3, Lymph % (Auto) 38.1, [place] % (Auto) 8.0, Eos % (Auto) 3.0, Baso % (Auto) 0.4, Absolute Neuts (auto) 2.3, Absolute Lymphs (auto) 1.76, Nucleated RBC % 0, Sodium 136, Potassium 3.9, Chloride 104, Carbon Dioxide 23.0, Anion Gap 9, BUN 16, Creatinine 0.73, Estim Creat Clear Calc 47.19 L, Est GFR (MDRD) Non-Af 82, BUN/Creatinine Ratio 21.3 H, Glucose 91, Calcium 8.4 Micro: Microbiology 08/03/24 15:33 Urine, Clean Catch Urine Culture - Final Escherichia coli Physical Exam Narrative GENERAL: cooperative HEENT: Atraumatic; normocephalic EYES; Anicteric, Normal Conjunctiva NECK; supple, normal thyroid, RESPIRATORY: Diminished to auscultation CARDIOVASCULAR: Regular S1 S2, GI: soft, normoactive bowel sounds, : No Renal angle tenderness; EXTREMITIES: No edema, no clubbing, MUSCULOSKELETAL: no muscle wasting NEURO: Awake; no lateralizing signs. SKIN: No Rash PSYCH; Flat affect Assessment & Plan Assessment/Plan (1) SBO (small bowel obstruction): (2) UTI (urinary tract infection): PLAN: Plan Patient is an 83-year-old lady with previous abdominal surgery (sigmoidectomy for volvulus, cholecystectomy and excision of colonic polyps) who presented with abdominal pain with associated nausea and vomiting and abdominal distention. Imaging studies came back consistent with Small bowel obstruction admitted to regular nursing floor for further management 1. Small bowel obstruction ? Suspected to be secondary to adhesions following patient previous surgery. CT of the abdomen and pelvis obtained on admission did showMultiple dilated small bowel loops, measuring up to 4.1 cm with transition point at the duodeno-jejunal junction, compatible small bowel obstruction. No pneumoperitoneum to suggest viscus perforation. Patient admitted to regular nursing floor conservative management with bowel rest, NG tube to suction pain medication and antinausea medication initiated consult was placed to general surgery patient has been seen by Dr. Harris his note and recommendations reviewed ? Patient's symptoms resolved with conservative management ?Patient seen did states she had a good bowel movement and tolerated her diet. A discharge order was subsequently placed however prior to patient leaving she did complain of feeling bloated. General surgery contacted request was placed for patient to undergo small bowel follow-through. Patient discharged subsequently discontinued ? 08/06/2024;Patient underwent small bowel follow-through the day prior awaiting result prior to making a determination regarding patient's discharge 2. Acute complicated urinary tract infection with E. coli ? Patient started on ceftriaxone urine culture sent we will follow-up on result ? Patient was discharged home on ciprofloxacin 3. Renal mass ? Incidentally noted mildly enhancing exophytic CT scan with 20 x 12 mm left interpolar region exophytic mildly enhancing lesion suspicious for renal cell carcinoma, plan is for patient to undergo follow-up MRI kidney protocol for further evaluation. Consult was placed to urology. Family request ? Patient was seen in consultation by Dr Ruelas with urology plans for patient to follow-up with subsequent monitoring 4. Obstructive sleep apnea -PAP therapy encouraged 5. Allergic rhinitis ? Patient was on fluticasone did continue 6. Anxiety disorder ? Patient is on lorazepam as needed 7. DVT prophylaxis ? Subcu Lovenox. Charges/Coding Visit Charges Inpatient E&M: 31025 Subs Hosp L2
[2024-08-06] MEDS: Pantoprazole Sodium 40 MG in 0.9% Normal Saline (100mL MB+) 100 ML 330 MG IV (09:49)
[2024-08-06] MEDS: Enoxaparin 40 MG/0.4 ML Syringe SC (10:51)
[2024-08-06] MEDS: Acetaminophen 325 MG Tablet 650 MG PO (10:54)
--- NOTE | 2024-08-06 12:28 | PHA.DC.MC.R ---
Pharmacy [facility] has performed discharge medication reconciliation and counseling for this patient. The patient's discharge medication list was reviewed for discrepancies and discrepancies were resolved. The patient was counseled on the following discharge medications and changes in medications for homegoing were reviewed. The Reason for Use, instructions for use, and potential side effects were reviewed for all new medications. The patient's questions regarding all of their medications were answered. 1. Ciprofloxacin 500 mg PO BID x 7 days The patient was able to verbally demonstrate an understanding of their discharge medications. Medications at Discharge Home Medications echinacea 400 mg capsule 400 mg PO DAILY PRN immunity 10/15/18 omega-3 fatty acids 1,000 mg capsule 1,000 mg PO DAILY 10/15/18 multivitamin with minerals 1 ea PO DAILY 10/19/18 ondansetron HCl 4 mg tablet 4 mg PO DAILY PRN nausea and vomiting 08/04/23 dicyclomine 20 mg tablet 20 mg PO TID #270 tabs 08/27/23 d-mannose 500 mg capsule (AZO D-Mannose) 500 mg PO DAILY 08/03/24 famotidine 20 mg tablet (Acid Controller) 20 mg PO BID PRN stomach upset 08/03/24 fluticasone propionate 50 mcg/actuation nasal spray,suspension (Allergy Relief (fluticasone)) 1 - 2 spray intranasal DAILY PRN allergy symptoms 08/03/24 lorazepam 0.5 mg tablet 0.5 mg PO DAILY PRN anxiety 08/03/24 melatonin 5 mg tablet 5 - 10 mg PO DAILY PRN sleep 08/03/24 ciprofloxacin HCl 500 mg tablet 500 mg PO BID #14 tabs 08/05/24
--- NOTE | 2024-08-06 12:36 | PN.SURG_ITS ---
Subjective Subjective Patient seen and evaluated on rounds this morning. Results of small bowel follow-through performed yesterday were noted. This did not indicate any obvious bowel obstruction. She had contrast in the cecum and about 90 minutes or less. Clinically she states that she is doing well. She is tolerating diet and is hopeful to go home today Objective Data Objective Data Vital Signs: Vital Signs Temp Pulse Resp BP Pulse Ox O2 Del Method 98.2 F 57 L 18 149/78 H 95 Room Air 08/06/24 06:52 08/06/24 06:52 08/06/24 06:52 08/06/24 06:52 08/06/24 07:38 08/06/24 07:38 Oxygen Delivery Method Room Air Weight: 123 lb 10.869 oz Body Mass Index (BMI) 20.6 Intake & Output: Intake and Output for Last 24 Hours 08/04/24 08/05/24 08/06/24 23:59 23:59 23:59 Intake Total 2541.67 / 2541.67 352.2933 / 352.2933 110 / 110 Output Total 550 / 550 Balance / 352.2933 / 352.2933 110 / 110 Lab / Micro Data 08/06/24 07:05 08/06/24 07:05 Labs: Laboratory Results - last 24 hr 08/06/24 07:05: WBC 4.6, RBC 3.47 L, Hgb 10.6 L, Hct 31.7 L, MCV 91.4, MCH 30.5, MCHC 33.4, RDW Std Deviation 43.1, RDW Coeff of Shira 13.0, Plt Count 189, MPV 9.4, Immature Gran % (Auto) 0.200, Neut % (Auto) 50.3, Lymph % (Auto) 38.1, [place] % (Auto) 8.0, Eos % (Auto) 3.0, Baso % (Auto) 0.4, Absolute Neuts (auto) 2.3, Absolute Lymphs (auto) 1.76, Nucleated RBC % 0, Sodium 136, Potassium 3.9, Chloride 104, Carbon Dioxide 23.0, Anion Gap 9, BUN 16, Creatinine 0.73, Estim Creat Clear Calc 47.19 L, Est GFR (MDRD) Non-Af 82, BUN/Creatinine Ratio 21.3 H, Glucose 91, Calcium 8.4 Micro: Microbiology 08/03/24 15:33 Urine, Clean Catch Urine Culture - Final Escherichia coli Radiography Diagnostic Testing: Radiology Impression Small Bowel X-Ray 08/05/24 14:00 IMPRESSION: 1. Contrast reaches the cecum/proximal colon on images labeled 90 minutes. This excludes complete small-bowel obstruction although technically 90 minutes represents borderline prolonged small bowel transit time and therefore persistent partial obstruction and/or ileus are possible. 2. Mild dilatation of the cecum may additionally represent colonic ileus. 3. Additional description as above. Reading Location: [id number] Physical Exam Narrative She is alert and oriented x 3. She is in no acute distress. Her abdomen is soft, nontender and nondistended. Assessment & Plan Assessment/Plan (1) SBO (small bowel obstruction): PLAN: Plan The patient is an 83-year-old female with a now resolved small bowel obstruction. This is likely related to adhesions from multiple prior abdominal surgeries. I did encourage her to continue with the MiraLAX or something similar to regulate her bowel functioning. We also discussed possibly eating smaller more frequent meals and making sure to ingest a significant amount of fluids with her meals as well. We also discussed the options of minimizing high roughage foods as well. She is agreeable to this plan. She is okay to be discharged home from a surgical standpoint. She may certainly call the office if needed Charges/Coding Visit Charges Inpatient E&M: 75806 Subs Hosp L2
[2024-08-06 12:58] VITALS: BP 137/81; PULSE 67; RESP 16; TEMP 37.1; O2SAT 97
== END 2024-08-06 13:38 | disposition home or self-care (01) | DRG 389 ==
LOC: ED 20:18 → MS3 20:36
PROVIDERS: Admitting Provider Family Medicine; Emergency Provider Emergency Medicine; PCP Internal Medicine; Visit Provider Internal Medicine
DX: K56.52 Intestinal adhesions [bands] with complete obstruction (principal); N17.9 Acute kidney failure, unspecified; E87.1 Hypo-osmolality and hyponatremia; C64.2 Malignant neoplasm of left kidney, except renal pelvis; N39.0 Urinary tract infection, site not specified; E86.0 Dehydration; B96.20 Unspecified Escherichia coli [E. coli] as the cause of diseases classified elsewhere; N18.30 Chronic kidney disease, stage 3 unspecified; E87.8 Other disorders of electrolyte and fluid balance, not elsewhere classified; K21.9 Gastro-esophageal reflux disease without esophagitis; G47.33 Obstructive sleep apnea (adult) (pediatric); J30.9 Allergic rhinitis, unspecified; F41.9 Anxiety disorder, unspecified; R03.0 Elevated blood-pressure reading, without diagnosis of hypertension; Z79.899 Other long term (current) drug therapy; Z91.041 Radiographic dye allergy status
CPT/HCPCS: 36415; 74018; 74177; 74250; 80048; 80053; 81001; 83605; 83690; 83735; 84100; 85025; 87077; 87086; 87088; 87186; 94668; 99285; Q9967; A4216; J2405

== ENCOUNTER 2025-03-31 17:40 | Inpatient (IN) | payer MEDICARE, SELFPAY ==
[2025-03-31 17:41] VITALS: BP 157/99; PULSE 88; RESP 18; TEMP 37; O2SAT 98
--- OUTSIDE RECORDS SUMMARY | 2025-03-31 18:10 | XMS RPT_ITS | CCD ---
Author Organization [facility] Care Team Providers Care Slip Feeder Name Role Phone Scott Mares W Unavailable Unavailable MaresScott greco W Unavailable Unavailable Sylvain, Andria K Unavailable Unavailable Thomae, Santos R Unavailable Unavailable Sylvain, Andria K Unavailable Unavailable Thomae, Santos R Unavailable Unavailable Thomae, Santos R Unavailable Unavailable Thomae, Santos R Unavailable Unavailable Sylvain, Andria K Unavailable Unavailable Thomae, Santos R Unavailable Unavailable Thomae, Santos R Unavailable Unavailable Sylvain, Andria K Unavailable Unavailable Thomae, Santos R Unavailable Unavailable Thomae, Santos R Unavailable Unavailable Sylvain, Andria K Unavailable Unavailable Thomae, Santos R Unavailable Unavailable Sylvain, Andria K Unavailable Unavailable Sylvain, Andria K Unavailable Unavailable El Beckie, Guzman Unavailable Unavailable El Beckie, Guzman Unavailable Unavailable Thomae, Santos R Unavailable Unavailable Sylvain, Andria K Unavailable Unavailable Sylvain, Andria Unavailable Scott Mares Unavailable Thomae, Santos Unavailable [facility] Yao DUENAS Unavailable Melissa Navarro Unavailable Unavailable Manchak, Danielle Unavailable Unavailable Mercedes Sargent Unavailable Unavailable Darci, [place] Unavailable Unavailable Mercedes Bey Unavailable Unavailable Tamara Landin Unavailable Unavailable Unavailable Unavailable Federico Ortiz Unavailable goldie Abdi Unavailable Unavailable Tavares Cheney Unavailable Estelita Roth Unavailable Unavailable Manchak, Danielle Unavailable Unavailable Mushtaq, Tamara L Unavailable Unavailable MessengerMercedes Unavailable Unavailable Unavailable Unavailable Lily Acuña Unavailable Unavailable Sylvain DO, Andria Unavailable Scott Mares Unavailable Santos Graham Unavailable Angel WELLS, Federico Beltrán Unavailable Dr. Tavares Cheney Unavailable Suraj [facility], Yao Winters Unavailable Domenico TANK BOTTOM ASSEMBLER, Lily Unavailable Unavailable Keaton PHARMACY MESSENGER, Danielle Unavailable Unavailable Emick, [place] Unavailable Unavailable Tr TANK BOTTOM ASSEMBLER, KELBY Unavailable Unavailable Sotero RN, Mercedes Unavailable Unavailable Mushtaq RN, Tamara Schmitz Unavailable Unavailable Ira TANK BOTTOM ASSEMBLER, Estelita Unavailable Unavailable Unavailable Unavailable Andria Steve DO Primary Care Provider Andria Steve DO Primary Care Provider Nataly PHARMACY MESSENGER, Kayela Unavailable Unavailable Andria Steve DO Attending Unavailable Andria Steve DO Referring Unavailable Andria Steve DO Consulting Unavailable Slarb TANK BOTTOM ASSEMBLER, Mellisa Unavailable Unavailable Bob BRUSH HOLDER INSPECTOR, Mattie Unavailable Liza HUI, Elise Unavailable Unavailable Shannon TANK BOTTOM ASSEMBLER, Heber Unavailable Unavailable Evonne Lara Unavailable ANDRIA STEVE Primary Care Unavailab MAXINE Rossi Attending Unavailable MAXINE FARRIS Referring Unavailable PROVIDER, UNKNOWN Primary Care Unavailable TYRELL FINK Attending Unavailable TYRELL FINK Admitting Unavailable Andria Steve DO Primary Care Provider Andria Steve DO Primary Care Provider TADEO NAPOLES Attending Unavailable ANDRIA STEVE Referring Unavailable ANDRIA STEVE Primary Care Unavailable Andria Steve DO Primary Care Provider ANDRIA STEVE Referring Unavailab ANDRIA Trevino Primary Care Unavailab Andria Trevino Primary Care Unavailable Tierra Humphreys Admitting Unavailable Delvin Harris Consulting Unavailable Tae Chopra Attending Unavailable Tierra Humphreys Consulting Unavailable Tae Chopra Consulting Unavailable Osman Edwards Consulting Unavailable Delvin Harris Attending Unavailable Sylvain, Andria Primary Care Unavailable Sylvain, Andria Attending Unavailable Tyrell Fink Attending Unavailable Sylvain, Andria Primary Care Unavailable Tierra Humphreys Attending Unavailable Tae Chopra Referring Unavailable Sylvain, Andria Primary Care Unavailable Sylvain, Andira Referring Unavailable Sylvain, Andria Attending Unavailable Sylvain, Andria Primary Care Unavailable Tierra Humphreys Admitting Unavailable Delvin Harris Consulting Unavailable Tae Chopra Attending Unavailable Tierra Humphreys Consulting Unavailable Osman Edwards Consulting Unavailable Allergies Allergy Classification Reported Allergen(s) Allergy Type Date of Onset Reaction(s) Facility (14 sources) codeine; Translations: [codeine] Drug Allergy 06-13-19 17 Mental Status Change [facility] Repository (1 source) Contrast media; Translations: [Contrast Dye] Propensity to adverse reactions to drug (disorder) AOF [facility] Repository (20 sources) Iodinated Contrast; Translations: [Iodinated Contrast] allergy to substance [facility] Work Phone: (7 sources) Contrast media; Translations: [RED DYE] Drug Allergy 05-05-19 16 [facility] (5 sources) Iohexol Drug Allergy 04-12-19 20 [facility] (5 sources) Triiodobenzoic Acids Allergy to substance 07-26-19 23 [facility] (4 sources) Seasonal allergy Propensity to adverse reactions 02-26-20 24 [facility] (1 source) Iohexol Drug Allergy 02-17-20 25 [facility] Repository (1 source) Iodinated Contrast Media Drug allergy (disorder) 02-17-20 25 [facility] Repository Medications Current Medications Medication Drug Class(es) Dates Sig (Normalized) Sig (Original) Artificial Tear Ointment (DRY EYES OP) (4 sources) Artificial Tear Ointment (DRY EYES OP) Administer into affected eye(s) as needed. Active calcium carbonate 1250 mg / cholecalciferol 1000 unt / vitamin k 0.4 mg chewable tablet (5 sources) Vitamin D Start: 10-19-2018 Calcium-Vitamin D3-Vitamin K Active 1 EACH PO DAILY October 18, 2018 11:00pm cholecalciferol 0.025 mg oral capsule (20 sources) Vitamin D take 1 capsule by mouth once daily Cholecalciferol, Vitamin D3, 25 mcg (1,000 unit) cap Take 1,000 Units by mouth once daily. Active take 1 [IU] by mouth once daily Vitamin D 1000 UNIT Oral Tablet qd (1000 UNIT) Inactive Comment on above: Take 1,000 Units by mouth once daily. dicyclomine hydrochloride 20 mg oral tablet (20 sources) Anticholinergic Start: 02-17-20 End: 11-21-19 23 take 1 tablet by mouth once daily as needed dicyclomine 20 mg oral tablet 1 (one) Tablet qd prn abdominal cramping for 0 days Quantity: 30 {Tablet} Refills: 0 Ordered: 20-Nov-2022 Mellisa Salguero LPN Start : 16-Feb-2021 End : 20-Nov-2022 Inactive Start: 02-11-2020 End: 05-01-2020 take 1 tablet by mouth every eight hours as needed Dicyclomine HCl 20 MG Oral Tablet 1 (one) Tablet q 8 hours prn for 90 days Quantity: 360 {Tablet} Refills: 0 Ordered: 01-May-2020 Lily Acuña LPN Start : 11-Feb-2020 End : 01-May-2020 Discontinued Start: 02-10-2020 take 1 capsule by [facility] every eight hours as needed Dicyclomine HCl 10 MG Oral Capsule 1 (one) Capsule q 8 hr prn for 0 days Quantity: 360 {Capsule} Refills: 3 Ordered: 10-Feb-2020 Andria Steve DO, DO, Kathleen Start : 10-Feb-2020 Active Start: 11-30-2018 End: 09-16-2019 take 1 tablet by mouth three times daily Dicyclomine Discontinued 0 .ROUTE .COMPLEX 270 July 24, 2019 11:32am September 16, 2019 10:55am TAKE 1 TABLET PO THREE TIMES DAILY Start: 10-21-2018 End: 01-13-2019 take 20 mg by mouth twice daily 30 minutes before mealtime Dicyclomine Discontinued 20 MG PO TWICE A DAY November 09, 2018 9:16am November 30, 2018 7:04am take 30 mins before meal take 10 mg by mouth every eight hours as needed dicyclomine (BENTYL) 20 mg tablet Take 10 mg by mouth three times a day as needed (after meals). After meals as needed Active take 10 mg by mouth every eight hours as needed dicyclomine (Bentyl) 20 MG tablet Take 10 mg by mouth every 8 hours as needed. Active take 1 tablet by blair th every six hours dicyclomine (BENTYL) 20 mg tablet Take 20 mg by mouth every 6 hours. 0 Active take 1 mg by mouth once daily Be ntyl 20 MG Oral Capsule daily (20 MG) Active Comment on above: Mail order. Take 20 mg by mouth every 6 hours. Take 10 mg by mouth three times a day as needed (after meals). After meals as needed docusate sodium 10 mg/ml oral suspension (2 sources) Start: 06-20-2023 take 10 mL by mouth once daily docusate (COLACE) 10 mg/mL liqd Take 10 mL by mouth once daily. 06/20/2023 Active Comment on above: Take 10 mL by mouth once daily. Echinacea (5 sources) Start: 10-15-2018 Echinacea Active 400 MG PO NEEDED October 14, 2018 11:00pm Start: 10-15-2018 Echinacea Acti ve 400 MG PO NEEDED October 15, 2018 12:00am famotidine 20 mg oral tablet (18 sources) Histamine-2 Receptor Antagonist Start: 04-12-2019 End: 04-12-2019 take 1 tablet by mouth twice daily Famotidine (Acid Controller) 20 mg tablet Active 20 MG PO TWICE A DAY 180 April 12, 2019 9:48am Comment on above: Take 20 mg by mouth twice daily. Take 20 mg by mouth two times a day. ibuprofen 200 mg oral tablet (20 sources) Nonsteroidal Anti-inflammatory Drug Start: 10-15-2018 Ibuprofen Active 200 MG PO NEEDED October 14, 2018 11:00pm take 1 mg by mouth once daily as needed Ibuprofen 800 MG Oral Tablet qd prn for knee (800 MG) Inactive lutein 40 mg oral capsule (20 sources) Start: 10-15-2018 take 120 mg by mouth once daily Lutein Active 120 MG PO DAILY October 14, 2018 11:00pm Lutein 120mg qd Inactive Lutein 120mg qd Active melatonin 1 mg oral capsule (4 sources) Melatonin 1 MG c apsule Take by mouth. Active Multivitamin capsule (4 sources) take 1 capsule by mo uth once daily Multivitamin capsule Take 1 capsule by mouth once daily. Active take 1 capsule by mouth once bon ly Multivitamin capsule Take 1 capsule by mouth once daily. 0 Active Comment on above: Take 1 capsule by mo ut once daily. Multivitamin With Minerals (5 sources) Start: 10-19-2018 Multivitamin With Minerals Active 1 EACH PO DAILY October 18, 2018 11:00pm Start: 10-19-2018 Multivitamin W ith Minerals Active 1 EACH PO DAILY October 19, 2018 12:00am [place]-3 Fatty Acids (5 sources) Start: 10-15-2018 take 1000 mg by mout h once daily [place]-3 Fatty Acids Active 1000 MG PO DAILY October 14, 2018 11:00pm Start: 10-15-2018 take 1000 mg by mouth once bon ly [place]-3 Fatty Acids Active 1000 MG PO DAILY October 15, 2018 12:00am omega-3 fatty acids 1,000 mg cap (4 sources) take 1 capsule by mo ut once daily omega-3 fatty acids 1,000 mg cap Take 2 g by mouth once daily. Active take 1 capsule by mouth once bon ly omega-3 fatty acids 1,000 mg cap Take 2 g by mouth once daily. 0 Active Comment on above: Take 2 g by mouth on ce daily. phenylephrine hydrochloride 25 mg/ml ophthalmic solution (1 source) alpha-1 Adrenergic Agonist Start: End: PHENYLephrine 2.5 % 1 Drop (AK-DILATE, FERNANDO-SYNEPHRINE) promethazine hydrochloride 25 mg oral tablet (4 sources) Phenothiazine Start: take 1 tablet by mouth every six hours as needed promethazine (PHENERGAN) 25 mg tablet Take 1 tablet by mouth every 6 hours as needed. 30 tablet 06/10/2016 Active Comment on above: Take 1 tablet by blair every 6 hours as needed. proparacaine hydrochloride 5 mg/ml ophthalmic solution (1 source) Local Anesthetic Start: End: proparacaine 0.5 % 1 Drop (ALCAINE) rOPINIRole 0.5 mg oral tablet (5 sources) Nonergot Dopamine Agonist Start: End: rOPINIRole (Requip) 0.5 MG tablet TAKE 1 TABLET EVERY NIGHT 90 tablet 05/17/2024 Active tropicamide 10 mg/ml ophthalmic solution (1 source) Anticholinergic Start: End: tropicamide 1 % 1 Drop (MYDRIACYL) Vitamins-Lipotropics (Lipotriad) tablet (4 sources) take 1 capsule by mouth once daily Vitamins-Lipotropics (Lipotriad) tablet Take 1 capsule by mouth daily. Active vits A-C-E-B [id number] 5,000 unit- 120 mg-60 unit TbER (3 sources) take 1 capsule by mouth once daily vits A-C-E-B [id number] 5,000 unit- 120 mg-60 unit TbER Take 1 capsule by mouth once daily. Active take 1 capsule by mouth once bon ly vits A-C-E-B curfcv-prz-[id number] 5,000 unit- 120 mg-60 unit TbER Take 1 capsule by mouth once daily. 0 Active Comment on above: Take 1 capsule by mo [facility] once daily. Completed/Discontinued Medications Medication Drug Class(es) Dates Sig (Normalized) Sig (Original) acetaminophen 325 mg / oxyCODONE hydrochloride 5 mg oral tablet (5 sources) Opioid Agonist Start: 11-11-2018 End: 11-14-2018 take 1 tablet by mouth every six hours as needed Oxycodone-Acetami nophen Discontinued 1 - 2 TABLET PO EVERY 6 HOURS NEEDED 15 3 November 11, 2018 November 13, 2018 11:10pm amLODIPine 5 mg oral tablet (20 sources) Dihydropyridine Calcium Channel Andrew Start: 05-01-2020 End: 11-20-2022 take 1 tablet by mouth once daily amLODIPine 5 mg oral tablet 1 (one) Tablet qd for 90 days Quantity: 90 {Tablet} Refills: 3 Ordered: 20-Nov-2022 Mellisa Salguero LPN Start : 01-May-2020 End : 20-Nov-2022 Inactive Comments: Mail order. Start: 02-10-2020 take 1 tablet by blair once daily amLODIPine Besylate 2.5 MG Oral Tablet 1 (one) Tablet qd for 0 days Quantity: 30 {Tablet} Refills: 2 Ordered: 10-Feb-2020 Andria Steve DO, DO, Kathleen Start : 10-Feb-2020 Active Comment on above: Mail order. amoxicillin 875 mg / clavulanate 125 mg oral tablet (20 sources) Penicillin-class Antibacterial Start: 018 End: 018 take 1 tablet by mouth twice daily Augmentin 875-125 MG Oral Tablet 1 (one) Tablet bid for 10 days Quantity: 20 {Tablet} Refills: 0 Ordered: 20-Jan-2018 Yamile Shabazz Start : 20-Jan-2018 End : 30-Jan-2018 Inactive cefTRIAXone 1000 mg injection (10 sources) Cephalosporin Antibacterial Start: 023 End: 023 cefTRIAXone 1 gram solution for injection 1 (one) gram IM x1 for 0 days Quantity: 1 {Gram} Refills: 0 Ordered: 05-Dec-2022 KELBY Armando LPN Start : 20-Nov-2022 End : 05-Dec-2022 Inactive sugar-free cholestyramine resin 4000 mg powder for oral suspension (2 sources) Bile Acid Sequestrant Start: take 1 dose by mouth three times daily cholestyramine low-calorie (CHOLESTYRAMINE LIGHT) 4 gram packet Take 1 Packet by mouth three times daily. 90 Packet 2 05/18/2019 Active Comment on above: Take 1 Packet by blair three times daily. ciprofloxacin 500 mg oral tablet (20 sources) Quinolone Antimicrobial Start: 016 End: take 1 tablet by mouth twice daily Cipro 500 MG Oral Tablet 1 (one) Tablet bid for 0 days Quantity: 20 {Tablet} Refills: 0 Ordered: 01-Dec-2015 Andria Steve DO, DO, Kathleen Start : 01-Dec-2015 End : 01-Dec-2015 Inactive d-mannose 500 mg oral capsule (9 sources) Start: 023 take 2 capsules by mouth twice daily d-mannose 500 mg oral capsule 2 (two) capsule bid for 0 days Quantity: 360 {Capsule} Refills: 3 Ordered: 05-Dec-2022 KELBY Armando LPN Start : 05-Dec-2022 Active Comments: Mail order. Comment on above: Mail order. docosahexaenoic acid 120 mg / eicosapentaenoic acid 180 mg oral capsule (10 sources) take 1 capsule by mouth once daily [place] 3 1000 MG Oral Capsule qd (1000 MG) Inactive Echinacea (20 sources) Echinacea qd Inactive Echinacea qd Act rosalind LUCA RT/ECH PUR AE MI X (ECHINACEA & GOLDENSEAL ORAL) (2 sources) GOLDENSEAL RT/EC H PUR AE MI X (ECHINACEA & GOLDENSEAL ORAL) Take by mouth as needed. 0 Active Comment on above: Take by mouth as nee ded. linaclotide 0.072 mg oral capsule (20 sources) Guanylate Cyclase-C Agonist Start: 7 End: 7 take 1 capsule by mouth twice daily Linzess 72 MCG Oral Capsule 1 (one) Capsule bid for 0 days Quantity: 60 {Capsule} Refills: 0 Ordered: 11-Mar-2017 Mercedes Bey RN Start : 10-Mar-2017 End : 11-Mar-2017 Inactive LORazepam 0.5 mg oral tablet (20 sources) Benzodiazepine Start: 3 End: 3 take 1 tablet by mouth once daily Ativan 0.5 mg oral tablet 1 (one) Tablet 1 tab qd for 0 days Quantity: 10 {Tablet} Refills: 0 Ordered: 20-Nov-2022 Mellisa Salguero LPN Start : 25-Apr-2022 End : 20-Nov-2022 Inactive Comments: karen Start: 02-26-2022 take 1 tablet by blair th once daily Ativan 0.5 MG Oral Tablet 1 (one) Tablet 1 tab qd for 0 days Quantity: 20 {Tablet} Refills: 0 Ordered: 26-Feb-2022 Alannah Winters MD Start : 26-Feb-2022 Active Comments: Mail order. oarrs reviewed and ok, faxed to mail order pharm per pt request. ketty hargrove pt request refilled #[phone] no refill oarrs reviewed and ok, called to maddi lee Start: 02-26-2022 take 1 tablet by blair th once daily Ativan 0.5 MG Oral Tablet 1 (one) Tablet 1 tab qd for 0 days Quantity: 10 {Tablet} Refills: 0 Ordered: 26-Feb-2022 Alannah Winters MD Start : 26-Feb-2022 Active Comments: karen Start: 04-23-2021 take 1 tablet by blair th once daily Ativan 0.5 MG Oral Tablet 1 (one) Tablet 1 tab qd for 0 days Quantity: 20 {Tablet} Refills: 0 Ordered: 23-Apr-2021 Sylvain GASPAR, Andria Steve DO, Andria Start : 23-Apr-2021 Active Comments: verbally called to pharmacy - [facility] 04-23-21 take 1 tablet by blair th every six hours as needed LORazepam (ATIVAN) 1 mg tablet Take 1 mg by mouth every 6 hours as needed for anxiety. Active Comment on above: verbally called to p harmacy - [facility] 04-23-21 Mail order. oarrs re viewed and ok, fax[facility] to mail [facility] pharm [facility] no refill oarrs reviewed and ok, called to lelo angel. maddi hdez Take 1 mg by mouth e very 6 hours as needed for anxiety. Multivitamin Oral Tablet (20 sources) take 1 tablet by mouth once daily Multivitamin Oral Tablet 1 (one) qd Inactive take 1 tablet by mouth once jos y Multivitamin Oral Tablet 1 (one) qd Active nitrofurantoin, macrocrystals 25 mg / nitrofurantoin, monohydrate 75 mg oral capsule (20 sources) Nitrofuran Antibacterial Start: 10-23-2022 End: 11-02-2022 take 1 capsule by mouth twice daily Macrobid 100 mg oral capsule 1 (one) capsule two times daily for 10 days Quantity: 20 {Capsule} Refills: 0 Ordered: 23-Oct-2022 Elise De Jesus MA Start : 23-Oct-2022 End : 02-Nov-2022 Inactive Start: 01-20-2020 End: 01-30-2020 take 1 capsule by mouth twice daily Macrobid 100 MG Oral Capsule 1 (one) Capsule bid for 10 days Quantity: 20 {Capsule} Refills: 0 Ordered: 20-Jan-2020 Estelita Roth LPN Start : 20-Jan-2020 End : 30-Jan-2020 Inactive Comments: called to lelo hdez [facility] 01/20/20 Start: 10-17-2016 End: 10-24-2016 take 1 capsule by mouth twice daily Macrobid 100 MG Oral Capsule 1 (one) Capsule bid for 7 days Quantity: 14 {Capsule} Refills: 0 Ordered: 17-Oct-2016 Alannah Winters MD Start : 17-Oct-2016 End : 24-Oct-2016 Inactive Comment on above: called to lelo ravig [facility] 01/20/20 [place] 3 1000 MG Oral Capsule (12 sources) take 1 capsule by mouth once daily [place] 3 1000 MG Oral Capsule qd (1000 MG) Inactive omega-3 acid ethyl esters (senior care) 1000 mg oral capsule (7 sources) take 1 capsule by mouth once daily [place] 3 1000 MG Oral Capsule qd (1000 MG) Active omeprazole 40 mg delayed release oral capsule (20 sources) Proton Pump Inhibitor Start: 9 End: 0 take 40 mg by mouth once daily Omeprazole Discontinued 40 MG PO DAILY 90 May 17, 2019 8:35am September 23, 2019 5:51am ondansetron 4 mg oral tablet (20 sources) Serotonin-3 Receptor Antagonist Start: 3 take 1 tablet by mouth every eight hours as needed ondansetron HCL 4 mg oral tablet 1 (one) Tablet PO Q8H PRN nausa for 0 days Quantity: 15 {Tablet} Refills: 0 Ordered: 06-Dec-2022 Heber Ortega LPN Start : 06-Dec-2022 Active Start: 04-25-2022 End: 11-20-2022 take 1 tablet by mouth every eight hours as needed ondansetron HCL 4 mg oral tablet 1 (one) Tablet PO Q8H PRN nausa for 0 days Quantity: 15 {Tablet} Refills: 0 Ordered: 20-Nov-2022 Mellisa Salguero LPN Start : 25-Apr-2022 End : 20-Nov-2022 Inactive Start: 10-17-2021 take 1 tablet by blair th every eight hours as needed Ondansetron HCl 4 MG Oral Tablet 1 (one) Tablet PO Q8H PRN nausa for 0 days Quantity: 15 {Tablet} Refills: 0 Ordered: 17-Oct-2021 Andria Steve DO, DO, Kathleen Start : 17-Oct-2021 Active Start: 02-10-2020 take 1 tablet by blair th every eight hours as needed Zofran 4 MG Oral Tablet 1 (one) Tablet PO Q8H PRN nausa for 0 days Quantity: 30 {Tablet} Refills: 0 Ordered: 10-Feb-2020 Andria Steve DO, DO, Kathleen Start : 10-Feb-2020 Active Start: 10-12-2018 take 1 tablet by blair th every eight hours as needed Zofran 8 MG Oral Tablet 1 (one) Tablet PO Q8H PRN for 0 days Quantity: 30 {Tablet} Refills: 0 Ordered: 12-Oct-2018 Ira MIKEEstelita Start : 12-Oct-2018 Active take 2 tablets by mo uth every eight hours as needed ondansetron (ZOFRAN) 4 mg tablet Take 8 mg by mouth every 8 hours as needed for nausea/vomiting. Active Comment on above: Take 8 mg by mouth e very 8 hours as needed for nausea/vomiting. OTC PRODUCT (2 sources) OTC PRODUCT once daily. Zeaxanthin 0 Active Comment on above: once daily. Zeaxanth in phenazopyridine hydrochloride 200 mg oral tablet (20 sources) Start: 10-18-19 End: 10-20-19 take 1 tablet by mouth three times daily Pyridium 200 MG Oral Tablet 1 (one) Tablet tid for 2 days Quantity: 6 {Tablet} Refills: 0 Ordered: 17-Oct-2016 Alannah Winters MD Start : 17-Oct-2016 End : 19-Oct-2016 Inactive Start: 12-06-2015 End: 12-08-2015 take 1 tablet by mouth three times daily Pyridium 100 MG Oral Tablet 1 (one) Tablet three times daily for 2 days Quantity: 6 {Tablet} Refills: 0 Ordered: 06-Dec-2015 Adrian Ross MD Start : 06-Dec-2015 End : 08-Dec-2015 Inactive predniSONE 50 mg oral tablet (20 sources) Start: 11-23-2015 End: 12-06-2015 PredniSONE 50 MG Oral Tablet 1 (one) Tablet 1 tab [address], then [address], then 1 tab [address] for 0 days Quantity: 3 {Tablet} Refills: 0 Ordered: 06-Dec-2015 Tamara Landin RN Start : 23-Nov-2015 End : 06-Dec-2015 Inactive sertraline 50 mg oral tablet (20 sources) Serotonin Reuptake Inhibitor Start: 11-19-2019 End: 02-10-2020 take 0.5 tablet by mouth once daily, then take 1 tablet by mouth once daily Zoloft 50 MG Oral Tablet 1/2 Tablet qd for 6days then one tab qd for 90 days Quantity: 45 {Tablet} Refills: 3 Ordered: 10-Feb-2020 Ira MIKEEstelita Start : 19-Nov-2019 End : 10-Feb-2020 Inactive Comments: Mail order. Start: 01-15-2019 take 0.5 tablet by m outh once daily, then take 1 tablet by mouth once daily Zoloft 50 MG Oral Tablet 1/2 Tablet qd for 6days then one tab qd for 90 days Quantity: 45 {Tablet} Refills: 3 Ordered: 15-Jan-2019 Andria Steve DO, DO, Kathleen Start : 15-Jan-2019 Active Comments: Mail order. Start: 2018 take 50 mg by mouth once daily Sertraline Active 50 MG PO DAILY November 03, 2018 11:00pm Start: 10-12-2018 take 0.5 tablet by m outh once daily, then take 1 tablet by mouth once daily Zoloft 50 MG Oral Tablet 1/2 Tablet qd for 6days then one tab qd for 0 days Quantity: 30 {Tablet} Refills: 2 Ordered: 12-Oct-2018 Mercedes Sargent Start : 12-Oct-2018 Active Comments: ok to substitute Comment on above: ok to substitute Mail order. Take 50 mg by mouth once daily. sulfamethoxazole 400 mg / trimethoprim 80 mg oral tablet (20 sources) Dihydrofolate Reductase Inhibitor Antibacterial, Sulfonamide Antimicrobial Start: 12-06-19 take 1 tablet by mouth once daily Bactrim 400-80 mg oral tablet 1 (one) tablet QD for 90 days Quantity: 90 {Tablet} Refills: 3 Ordered: 05-Dec-2022 Andria Steve DO, DO, Kathleen Start : 05-Dec-2022 Active Comments: Mail order. Start: 11-20-2022 End: 11-30-2022 take 1 tablet by mouth twice daily Bactrim DS 800-160 mg oral tablet 1 Tablet 2 times per day for 10 days Quantity: 20 {Tablet} Refills: 0 Ordered: 20-Nov-2022 Mattie Rojas CNP Start : 20-Nov-2022 End : 30-Nov-2022 Inactive Start: 11-20-2022 Bactrim DS 800 -160 mg oral tablet 1 (one) Tablet two times daily-for 10 days-- then one tablety daily for 30 days for 40 days Quantity: 50 {Tablet} Refills: 0 Ordered: 20-Nov-2022 Bob ALONDRA Mattie Start : 20-Nov-2022 Active Start: 04-25-2022 Bactrim DS 800 -160 mg oral tablet 1 (one) Tablet two times daily-for 10 days-- then one tablety daily for 30 days for 40 days Quantity: 50 {Tablet} Refills: 0 Ordered: 25-Apr-2022 Andria Steve DO, DO, Kathleen Start : 25-Apr-2022 Active Start: 02-26-2022 take 1 tablet by blair th twice daily Bactrim DS 800-160 MG Oral Tablet 1 (one) Tablet two times daily for 7 days Quantity: 14 {Tablet} Refills: 0 Ordered: 26-Feb-2022 Alannah Winters MD Start : 26-Feb-2022 Active Start: 02-10-2020 End: 03-02-2020 take 1 tablet by mouth twice daily Bactrim DS 800-160 MG Oral Tablet 1 (one) Tablet bid for 21 days Quantity: 42 {Tablet} Refills: 0 Ordered: 10-Feb-2020 Andria Steve DO, DO, Kathleen Start : 10-Feb-2020 End : 02-Mar-2020 Inactive Start: 01-25-2020 End: 02-01-2020 take 1 tablet by mouth twice daily Bactrim DS 800-160 MG Oral Tablet 1 (one) Tablet two times daily for 7 days Quantity: 14 {Tablet} Refills: 0 Ordered: 25-Jan-2020 Estelita Roth LPN Start : 25-Jan-2020 End : 01-Feb-2020 Inactive Start: 11-06-2016 End: 04-08-2019 take 1 tablet by mouth once daily Sulfamethoxazole-Trimethoprim 800-160 MG Oral Tablet 1 (one) Tablet Tablet qd for 0 days Quantity: 30 {Tablet} Refills: 11 Ordered: 08-Apr-2019 Estelita Roth LPN Start : 06-Nov-2016 End : 08-Apr-2019 Inactive Start: 03-26-2016 End: 04-05-2016 take 1 tablet by mouth twice daily Bactrim DS 800-160 MG Oral Tablet 1 (one) Tablet Tablet bid for 10 days Quantity: 20 {Tablet} Refills: 0 Ordered: 26-Mar-2016 Sylvain DO, Andria Mckee DO Start : 26-Mar-2016 End : 05-Apr-2016 Inactive Comment on above: Mail order. Take 1 tablet by blair th once daily. traMADol hydrochloride 50 mg oral tablet (4 sources) Opioid Agonist Start: 08-05-2016 take 1 tablet by mouth every six hours as needed traMADol (ULTRAM) 50 mg tablet Take 1 tablet by mouth every 6 hours as needed. 40 tablet 0 08/05/2016 Active Comment on above: Take 50 mg by mouth every 6 hours. Take 1 tablet by blair th every 6 hours as needed. vitamin d 1000 unt oral tablet (7 sources) take 1 [IU] by mouth once daily Vitamin D 1000 UNIT Oral Tablet qd (1000 UNIT) Active vits A-C-E-B oyljxy-buu-rtnlem (LIPOTRIAD, WITH LUTEIN,) 5,000 unit- 120 mg-60 unit TbER (1 source) take 1 capsule by mouth once daily vits A-C-E-B hylnip-trr-wjtnbf (LIPOTRIAD, WITH LUTEIN,) 5,000 unit- 120 mg-60 unit TbER Take 1 capsule by mouth once daily. 0 Active Comment on above: Take 1 capsule by mo ut once daily. Zeaxanthin (20 sources) Zeaxanthin 3mg Inactive Zeaxanthin 3mg A ctive Problems Active Problems Problem Classification Problem Date Documented Da te Episodic/Chronic Abdominal pain (20 sources) Right upper quadrant pain; Translations: [Abdominal colic] Resolved: 1 10-12-2018 Episodic Adjustment disorders (20 sources) Anticipatory grief; Translations: [Anticipatory grieving] 04-25-2022 Chronic Allergic reactions (20 sources) Allergy to X-ray contrast media; Translations: [Allergy to contrast media (used for diagnostic x-rays)] 10-12-2018 Episodic Anxiety disorders (20 sources) Acute stress disorder; Translations: [Anxiety] 10-12-2018 Chronic Biliary tract disease (20 sources) Dysfunction of sphincter of Oddi; Translations: [Sphincter of Oddi dysfunction] 04-19-2019 Chronic Biliary tract disease (20 sources) Polyp of gallbladder; Translations: [Biliary colic] 10-13-2018 Episodic Comment on above: surgeon took out yury caputo and now symptoms perists -- dr petit- states needs phinctertomry?? Cataract (4 sources) Bilateral pseudophakia; Translations: [Presence of intraocular lens] Onset: 6 05-05-2015 Chronic Chronic kidney disease (1 source) Chronic kidney disease; Translations: [Chronic kidney disease, stage 3 unspecified] Onset: 5 Diabetes mellitus without complication (1 source) Other abnormal glucose; Translations: [Other abnormal glucose] Onset: 5 Episodic Diverticulosis and diverticulitis (20 sources) Diverticulitis of colon; Translations: [Diverticulitis, colon] Onset: 7 10-12-2018 Chronic Comment on above: s/p partial colon re sectin ( about 12) Esophageal disorders (20 sources) Gastroesophageal reflux disease; Translations: [Gastro-esophageal reflux disease without esophagitis] 10-19-2018 Chronic Comment on above: ok to take p pi until gone then resume pepcidelvate hob 30decrees Essential hypertension (20 sources) Benign hypertension; Translations: [HTN (hypertension), benign] Onset: 5 05-01-2020 Chronic Genitourinary symptoms and ill-defined conditions (20 sources) Blood in urine; Translations: [Abnormal urine] Resolved: 1 10-12-2018 Episodic Comment on above: has had frequent UTI seen Dr. edwards but not like him toldher need to follow up with urologist. ua is questionable - - will cx then tx if necessary will cx and if no ev idence of ongoing infection - refer to urology for cystoscopy Headache; including migraine (5 sources) Ophthalmic migraine; Translations: [Migraine with aura, not intractable, without status migrainosus] Onset: 2 Chronic Malaise and fatigue (5 sources) Fatigue; Translations: [Other fatigue] Onset: 4 02-26-2024 Episodic Nausea and vomiting (20 sources) Nausea and vomiting; Translations: [N&V (nausea and vomiting)] Resolved: 3 10-12-2018 Episodic Osteoarthritis (20 sources) Bilateral primary osteoarthritis of knee; Translations: [Bilateral osteoarthritis of knees] 10-12-2018 Chronic Other aftercare (20 sources) Encounter for removal of sutures; Translations: [Removal of sutures done] Resolved: 1 10-12-2018 Episodic Other aftercare (7 sources) Surgical follow-up; Translations: [Visit for suture removal] 04-08-2019 Episodic Other and unspecified benign neoplasm (1 source) Nevus of choroid; 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] Episodic Other circulatory disease (20 sources) Elevated blood pressure; Translations: [Elevated blood pressure reading] 01-20-2020 Episodic Other connective tissue disease (4 sources) Cramp in lower limb; Translations: [Sleep related leg cramps] Onset: 4 02-26-2024 Chronic Other connective tissue disease (1 source) Sleep related leg cramps; Translations: [Sleep related leg cramps] Onset: 4 Chronic Other connective tissue disease (1 source) Trigger finger; Translations: [Trigger finger] 05-01-2020 Episodic Comment on above: R hand injected toda yR>L Other connective tissue disease (20 sources) Triggering of digit; Translations: [Trigger finger] 05-01-2020 Episodic Comment on above: R hand injected toda yR>L Other diseases of bladder and urethra (20 sources) Disorder of bladder; Translations: [Structural abnormality of bladder] 10-12-2018 Chronic Comment on above: suspect possible fis tual wiht gas in bladder , hematuria , recurent infectioins, and bm and urinating at same time never separate Other diseases of bladder and urethra (20 sources) Bladder fistula; 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, bladder] 10-12-2018 Chronic Comment on above: s/p repair and colon resection - july 2016 Other diseases of bladder and urethra (4 sources) Vesicocolic fistula; 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] Onset: 7 07-23-2016 Chronic Other diseases of kidney and ureters (20 sources) Renal mass; Translations: [Mass of kidney of unknown nature] 05-01-2020 Chronic Other diseases of kidney and ureters (2 sources) Other specified disorders of kidney and ureter; Translations: [Other specified disorders of kidney and ureter] Onset: 5 Chronic Other diseases of kidney and ureters (15 sources) Renal mass; Translations: [Mass of kidney of unknown nature] 10-12-2018 Episodic Other eye disorders (5 sources) Bilateral posterior vitreous detachment; Translations: [Vitreous degeneration, bilateral] Onset: 6 Chronic Other eye disorders (4 sources) Vitreous floaters; Translations: [Other vitreous opacities, unspecified eye] Onset: 6 05-05-2015 Chronic Other eye disorders (1 source) Subconjunctival hemorrhage of left eye; Translations: [Conjunctival hemorrhage, left eye] Episodic Other gastrointestinal disorders (20 sources) Irritable bowel syndrome characterized by constipation; Translations: [Irritable bowel syndrome with constipation] 10-12-2018 Chronic Comment on above: last colonoscopy spr ing 2017 Other gastrointestinal disorders (5 sources) Diarrhea; Translations: [Diarrhea, unspecified] 10-19-2018 Episodic Other hereditary and degenerative nervous system conditions (3 sources) Restless legs; Translations: [Restless legs syndrome] 02-26-2024 Chronic Other hereditary and degenerative nervous system conditions (2 sources) Restless legs syndrome; Translations: [Restless legs syndrome] Onset: 4 Chronic Other hereditary and degenerative nervous system conditions (2 sources) Myoclonus; Translations: [Myoclonus] Onset: 4 Chronic Other nervous system disorders (3 sources) Neuropathy; Translations: [Hereditary and idiopathic neuropathy, unspecified] 02-26-2024 Chronic Other nervous system disorders (2 sources) Hereditary and idiopathic neuropathy, unspecified; Translations: [Hereditary and idiopathic neuropathy, unspecified] Onset: 4 Chronic Other nervous system disorders (1 source) Carpal tunnel syndrome, unspecified upper limb; Translations: [Carpal tunnel syndrome, unspecified upper limb] Onset: 5 Chronic Other nervous system disorders (1 source) Polyneuropathy, unspecified; Translations: [Polyneuropathy, unspecified] Onset: 5 Chronic Other nutritional; endocrine; and metabolic disorders (20 sources) Body mass index 25-29 - overweight; Translations: [Body mass index 28.0-28.9, adult] 10-12-2018 Chronic Other nutritional; endocrine; and metabolic disorders (5 sources) Body mass index 25-29 - overweight; Translations: [BMI 25.0-25.9,adult] 05-01-2020 Episodic Other nutritional; endocrine; and metabolic disorders (20 sources) Overweight in adulthood with body mass index of 25 or more but less than 30; Translations: [BMI 25.0-25.9,adult] Resolved: 3 05-01-2020 Episodic Other conditions (20 sources) Abdominal colic; Translations: [Abdominal pain, colicky] Resolved: 1 05-05-2020 Episodic Other screening for suspected conditions (not mental disorders or infectious disease) (20 sources) Patient encounter status; Translations: [Encounter for screening fecal occult blood testing] 05-15-2016 Episodic Regional enteritis and ulcerative colitis (4 sources) Crohn's disease; Translations: [Crohn's disease, unspecified, without complications] Onset: 7 08-02-2016 Chronic Residual codes; unclassified (5 sources) Sleep apnea; Translations: [Sleep apnea, unspecified] 10-19-2018 Chronic Residual codes; unclassified (20 sources) Chill; Translations: [Chills] Resolved: 1 10-12-2018 Episodic Residual codes; unclassified (20 sources) Non-smoker; Translations: [Nonsmoker] 05-01-2020 Episodic Residual codes; unclassified (5 sources) History of arthroscopy of knee joint; Translations: [Other specified postprocedural states] 10-19-2018 Episodic Residual codes; unclassified (5 sources) Past history of procedure; Translations: [Other specified postprocedural states] 11-05-2018 Episodic Residual codes; unclassified (5 sources) History of colonoscopy; Translations: [Other specified postprocedural states] 10-19-2018 Episodic Spondylosis; intervertebral disc disorders; other back problems (20 sources) Backache; Translations: [Back pain] 01-20-2020 Episodic Unclassified (20 sources) Unclassified (5 sources) H/O: back problem; Translations: [History of back problems] 10-19-2018 Past or Other Problems Problem Classification Problem Date Documented Date Episodic/Chronic Blindness and vision defects (12 sources) Hypermetropia; Translations: [Hypermetropia, unspecified eye] Onset: 05-05-2015 05-05-2015 Episodic Complications of surgical procedures or medical care (1 source) Postprocedural intestinal obstruction, unspecified as to partial versus complete; Translations: [Intestinal or peritoneal adhesions with obstruction (postoperative) (postinfection)] Onset: 07-09-2023 07-09-2023 Episodic Fluid and electrolyte disorders (1 source) Hypokalemia; Translations: [Hypokalemia] Onset: 08-05-2016 Resolved: 08-05-2016 08-05-2016 Episodic Intestinal obstruction without hernia (8 sources) Unspecified intestinal obstruction, unspecified as to partial versus complete obstruction; Translations: [Small bowel obstruction] Onset: 06-16-2023 07-08-2023 Episodic Other connective tissue disease (15 sources) Trigger finger; Translations: [Trigger finger] 10-12-2018 Comment on above: R hand injected toda yR>L Other eye disorders (6 sources) Dry eyes; Translations: [Dry eye syndrome of bilateral lacrimal glands] Onset: 05-05-2015 Episodic Other lower respiratory disease (1 source) Decreased respiratory function; Translations: [Other abnormalities of breathing] Onset: 08-02-2016 Resolved: 08-02-2016 08-02-2016 Episodic Other nervous system disorders (4 sources) Postoperative pain ; Translations: [Other acute postprocedural pain] Onset: 08-02-2016 08-02-2016 Episodic Other nutritional; endocrine; and metabolic disorders (1 source) Hypophosphatemia; Translations: [Other disorders of phosphorus metabolism] Onset: 08-05-2016 Resolved: 08-05-2016 08-05-2016 Chronic Unclassified (20 sources) Stress reaction Unclassified (20 sources) Diverticulitis, colon Unclassified (20 sources) Patient encounter status; Translations: [Annual Medicare Phyiscal WITHOUT abnormal findings (Renamed from Encounter for general adult medical examination without abnormal findings)] 10-12-2018 Unclassified (16 sources) Visit for suture removal Unclassified (20 sources) Deliveries (Parity); Translations: [Deliveries (Parity)] 10-12-2018 Comment on above: 3 Unclassified (20 sources) Nonsmoker; Translations: [Non-smoker] 10-12-2018 Unclassified (20 sources) Unspecified Diagnosis 03-10-2017 Unclassified (20 sources) Screening status; Translations: [Encounter for screening for malignant neoplasm of colon (Renamed from Special screening for malignant neoplasms, colon)] 10-12-2018 Unclassified (20 sources) Trigger finger Unclassified (16 sources) Osteoarthritis of both knees, unspecified osteoarthritis type Unclassified (20 sources) Body mass index 28.0-28.9, adult Unclassified (20 sources) Pregnancies (); Translations: [Pregnancies ()] 10-12-2018 Comment on above: 4 Unclassified (16 sources) Encounter for screening mammogram for breast cancer (Renamed from Encounter for screening mammogram for malignant neoplasm of breast) Unclassified (20 sources) Body mass index 26.0-26.9, adult Unclassified (16 sources) N&V (nausea and vomiting) Unclassified (16 sources) Encounter for screening fecal occult blood testing Unclassified (20 sources) Abortions/Miscarriages; Translations: [Abortions/Miscarriages ] 10-12-2018 Comment on above: Miscarriage - 1 Unclassified (20 sources) Fistula, bladder Unclassified (16 sources) Allergy to contrast media (used for diagnostic x-rays) Unclassified (20 sources) Irritable bowel syndrome with constipation Unclassified (16 sources) Abdominal pain, colicky Unclassified (15 sources) Recurrent UTI Unclassified (16 sources) Structural abnormality of bladder Unclassified (16 sources) Mass of kidney of unknown nature Unclassified (16 sources) BMI 26.0-26.9,adult Unclassified (15 sources) Gallbladder polyp Unclassified (18 sources) Sphincter of Oddi dysfunction Unclassified (14 sources) BMI 25.0-25.9,adult Unclassified (12 sources) Urinary urgency Unclassified (12 sources) Elevated blood pressure reading Unclassified (1 source) HTN (hypertension), benign Unclassified (5 sources) history excision colon polyps 11-05-2021 Urinary tract infections (20 sources) Urinary tract infectious disease; Translations: [Cystitis] Onset: 08-27-2024 Resolved: 05-01-2020 05-22-2016 Episodic Comment on above: UTI for 1 month now worsening for 1 week with fever, flank pain, ACUTE PYELONEPHRITIS, , uncomplicated, no hypotension, CBC, CMP STAT was WNL, does not appear septic.UA positive, send cultures.Start ciprofloxacin 500 BID 10 days, if fever doesnt subside in [address] scan with IV contrast to check for compliaction.Has allergy to IV dye so will need prednsione.Scheduled for Friday if need it, if not patient will cancel it.1 month, ill, using phenazopyridineNo medical problem,on no medications, Frequency X 1 monthBurning.Now having nausea, back pain, fevers 1 week as high as 101,, cold sweat, feel flushes, cold, sweat.Not feeling well, recently getting worse.No allergies to antibiotics. Has taken antibiotics for UTI in the past .Lately have been having more UTIHaving lightheadedness and dizziness X 1 month waiting for urinary cx to treat-- she has been on bactrim daily for prevention Still have pressure in bladder, burning sensation intermittently, hesitancy.Never had stone in the past. No pain in the bladder. Mild back pain..No fevers,some chills.UC 11/23/15: E coli sensitive to cipro and bactrim waiting for urinary cx to treat-- she has been on bactrim daily for prevention- did that for 3mo then has been fine -- will tx again since had pos urine in dec but sx and neg dip in jan -- tx 21 days and await cx bc of hisotry check renal function and a cbc. then will send atb today. consider urology referral for recurrent UTIs. would also do antiinflammatory dietno s/s sepsis. she is mildly tender on exam. no fever/chills, VSS. no labs in over a year. check renal function and a cbc. then will send atb today. consider urology referral for recurrent UTIs. would also do antiinflammatory diet*update: reviewed labs. per guidelines, she should be treated with IM ceftriaxone 1gm x1, then oral bactrim ds is appropriate for 10 days.no s/s sepsis. she is mildly tender on exam. no fever/chills, VSS. no labs in over a year. Urinary tract infections (15 sources) Urinary tract infections Results Test Name Value Interpretation Reference Range Facility Internal Medicine Office Vis sangita 02-16-2025 Internal Medicine Office Visit [facility] Internal Medicine [address] [place], [place] [address] OFFICE VISIT Date of Service: 02/16/25 MR#: [id number] Acct: [id number] Name: MARY LI Rep #: [id number] 1940 Provider: Dr. Andria mix DO Age/Sex: 84/F [place] [facility] [place] [facility] [place] Status: Signed Intake Vital Signs 08/04/24 10:53 02/16/25 13:21 Height 5 ft 5 in 5 ft 5 in Weight: 120 lb BMI 20.0 BP 158/84 H Blood Pressure Location Rt brachial Position Sitting Respiration 18 Pulse 78 Temp 99.4 F H Temp Source Temporal Pulse Oximetry (%) 97 Oxygen Delivery Method room air Comment pt reports bad day-issues why bp high Intake Visit Reasons: General Chief Complaint: MCR /gen med Resource Development Director Required: No Is patient in pain?: No Allergies Iodinated Contrast Media (contrast dye - iodinated) Allergy (Intermediate, Verified 02/16/25 13:05) Hives iohexol Allergy (Verified 02/16/25 13:05) Hives codeine Adverse Reaction (Verified 02/16/25 13:05) Nausea/Vom/Diarrhea Medications ???Medication ???Instructions ???Recorded ???Confirmed ???Type echinacea 400 mg capsule 400 mg PO DAILY PRN immunity 10/1502/16/25 History omega-3 fatty acids 1,000 mg 1,000 mg PO DAILY 10/15/18 5 History capsule multivitamin with minerals 1 ea PO DAILY 10/19/18 02/16/25 Hi story ondansetron HCl 4 mg tablet 4 mg PO DAILY PRN nausea and 08/0302/16/25 History vomiting dicyclomine 20 mg tablet 20 mg PO TID #270 tabs 08/27/23 Rx d-mannose 500 mg capsule (AZO 500 mg PO DAILY 08/03/24 02/16/25 History D-Mannose) famotidine 20 mg tablet (Acid 20 mg PO BID PRN stomach upset 02/16/25 History Controller) fluticasone propionate 50 1 - 2 spray intranasal DAILY PRN 0 08/03/24 02/16/25 History mcg/actuation nasal allergy symptoms spray,suspension (Allergy Relief (fluticasone)) melatonin 5 mg tablet 5 - 10 mg PO DAILY PRN sleep 08/0302/16/25 History ciprofloxacin HCl 500 mg tablet 500 mg PO BID #14 tabs 08/05/24 Rx lorazepam 0.5 mg tablet 0.5 mg PO DAILY PRN anxiety #30 02/16/25 Rx tabs Medication Reconciliation completed?: Yes Post menopausal: Yes Patient : No Have you fallen in the past year?: No Nurse's Note: pt here for gen [facility] Medical History (Updated 02/16/25 @ 14:[address] Andria Steve, DO) Encounter for general adult medical examination with abnormal findings Polyneuropathy Essential (primary) hypertension CKD (chronic kidney disease) stage 3, GFR 30-59 ml/min Abnormal glucose tolerance test (GTT) Bowel obstruction Chronic GERD Fistula, bladder Carpal tunnel syndrome Paresthesia Anxiety Weight loss Non-smoker Structural abnormality of bladder IBS (irritable bowel syndrome) Elevated blood pressure reading Mass of kidney of unknown nature Stress reaction Sphincter of Oddi dysfunction Hematuria RLS (restless legs syndrome) Back pain Biliary colic Constipation Hx of small bowel obstruction Cholesterolosis Acid reflux Sleep apnea Arthritis History of back problems Surgical History History of bowel resection History of colonoscopy ( 2018) Hx laparoscopic cholecystectomy History of open sigmoidectomy History of colonoscopy history excision colon polyps History of arthroscopy of left knee Family History Father Cancer prostate Brother Cancer brain Seizures Mother Colon cancer Social History (Updated 02/16/25 @ 13:14 by Virginia Chapman) household members: none Smoking Status: Never smoker alcohol intake: never substance use type: does not use seatbelt use: always do you feel safe at home: Yes Questionnaire PQH-9 BMS Over the last 2 weeks, how often have you been bothered by any of the following problems? 1. Little interest or pleasure in doing things: several days 2. Feeling down, depressed, or hopeless: several days (lost , ) 3. Trouble falling or staying asleep, or sleeping too much: several days 4. Feeling tired or having little energy: not at all 5. Poor appetite or overeating: not at all 6. Feeling bad about yourself - or that you are a failure or have let yourself and your family down: not at all 7. Trouble concentrating on things, such as reading the newspaper or watching television: not at all 8. Moving or speaking so slowly that other people could have noticed? - Or the opposite - being so fidgety or restless that you have been moving around a lot more than usual: several days 9. Thoughts that you would be better off or of hurting yourself in some way: not at all Total score: 4 If you checked off any prob (more content not included)... Normal [facility] MRI ABDOMEN WO/W IVCONon MRI ABDOMEN WO/W IVCON * * *Final Report* * * DATE OF EXAM: Oct 20 2024 11:40AM [id number] - MRI ABDOMEN WO/W IVCON / PROCEDURE REASON: left kidney mass * * * * Physician Interpretation * * * * Examination: MRI ABDOMEN WO/W IVCON History: left kidney mass TECHNIQUE: Routine liver mri protocol, including axial 3D gradient echo volume acquisition (VIBE) before and after Elucirem 6.5cc, axial gradient echo in- and opposed- phase, axial fast STIR, coronal HASTE. Image subtraction performed on 3D gradient echo images. COMPARISON: 06/16/2023 RESULT: Liver: No mass. Biliary: Cholecystectomy. Common duct is normal in course and caliber. No filling defect within it. Common duct tapers smoothly to the ampulla Spleen: No mass. No splenomegaly. Pancreas: No mass or duct dilation. Adrenals:No mass. Kidneys: Bilateral simple renal cysts. Upper pole left renal lateral 2.2 cm lesion is T2 hypointense, T1 hyperintense and nonenhancing. The appearance is consistent with hemorrhagic cyst. No solid or enhancing lesion on either side. No gross obstructive uropathy. GI tract: No dilation or wall thickening. Lymph nodes: No abdominal lymphadenopathy. Mesentery/Peritoneum: No ascites or mass. Retroperitoneum: No mass. Vasculature: - Abdominal aorta: No aneurysm. - Celiac and SMA: Patent without stenosis. - Portal venous system (SMV, splenic vein, portal vein and branches): Patent. - Hepatic veins: Patent. Bones/Soft Tissues: Degenerative changes. Lower thorax: Unremarkable. Localizer images: No additional findings. IMPRESSION: Left renal hemorrhagic cyst, Bosniak II. Additional Bosniak 1 simple cysts bilaterally No suspicious mass or adenopathy in the visualized abdomen Burner Technician: BLOSSOM Transcribe Date/Time: Oct 28 2024 9:01A Dictated by : ZBIGNIEW SUE MD This examination was interpreted and the report reviewed and electronically signed by: ZBIGNIEW SUE MD on Oct 28 2024 9:11AM EST [id number] Normal [facility] Basic Metabolic Profile (BMP )on 08-07-2024 BUN Normal 4-19 [facility] Comment on above: Result Comment: Canc elled via OM: Order cancelled - Patient discharged Performed By: #### L 100.0100, L500.2500 ####[facility] [id number] [place], [address] BUN/CRE Normal 10-20 [facility] Comment on above: Result Comment: Canc elled via OM: Order cancelled - Patient discharged Performed By: #### L 100.0100, L500.2500 ####[facility] [address] [place], [address] Calcium Normal 7.6-11.0 [facility] Comment on above: Result Comment: Canc elled via OM: Order cancelled - Patient discharged Performed By: #### L 100.0100, L500.2500 ####[facility] [address] [place], [address] CL Normal 98-108 [facility] Comment on above: Result Comment: Canc elled via OM: Order cancelled - Patient discharged Performed By: #### L 100.0100, L500.2500 ####[facility] [address] [place], [address] CO2 Normal 21.0-32.0 [facility] Comment on above: Result Comment: Canc elled via OM: Order cancelled - Patient discharged Performed By: #### L 100.0100, L500.2500 ####[facility] [address] [place], [address] CREAT,SERUM Normal 0.70-1.20 [facility] Comment on above: Result Comment: Canc elled via OM: Order cancelled - Patient discharged Performed By: #### L 100.0100, L500.2500 ####[facility] [address] [place], [address] eGFR Normal >60 [facility] Comment on above: Result Comment: Canc elled via OM: Order cancelled - Patient discharged Performed By: #### L 100.0100, L500.2500 ####[facility] [address] [place], [address] GAP Normal 5-15 [facility] Comment on above: Result Comment: Canc elled via OM: Order cancelled - Patient discharged Performed By: #### L 100.0100, L500.2500 ####[facility] [address] [place], [address] GLU Normal 70-99 [facility] Comment on above: Result Comment: Canc elled via OM: Order cancelled - Patient discharged Performed By: #### L 100.0100, L500.2500 ####[facility] [address] [place], [address] Potassium Normal 3.3-5.1 [facility] Comment on above: Result Comment: Canc elled via OM: Order cancelled - Patient discharged Performed By: #### L 100.0100, L500.2500 ####[facility] [address] [place], [address] Basic Metabolic Profile (BMP) Normal 133-145 [facility] Comment on above: Result Comment: Canc elled via OM: Order cancelled - Patient discharged Performed By: #### L 100.0100, L500.2500 ####[facility] [address] [place], [address] CBC W/Diff, Automatedon 05-0 -2024 Absolute Neut Normal 2.0-7.7 [facility] Comment on above: Result Comment: Canc elled via OM: Order cancelled - Patient discharged Performed By: #### L 100.0100, L500.2500 ####[facility] [address] [place], [address] HCT Normal 37-47 [facility] Comment on above: Result Comment: Canc elled via OM: Order cancelled - Patient discharged Performed By: #### L 100.0100, L500.2500 ####[facility] [address] [place], [address] HGB Normal 12.0-15.0 [facility] Comment on above: Result Comment: Canc elled via OM: Order cancelled - Patient discharged Performed By: #### L 100.0100, L500.2500 ####[facility] [address] [place], [address] MCH Normal 27.0-32.0 [facility] Comment on above: Result Comment: Canc elled via OM: Order cancelled - Patient discharged Performed By: #### L 100.0100, L500.2500 ####[facility] [address] [place], [address] MCHC Normal 32-36 [facility] Comment on above: Result Comment: Canc elled via OM: Order cancelled - Patient discharged Performed By: #### L 100.0100, L500.2500 ####[facility] [address] [place], [address] MCV Normal 81-99 [facility] Comment on above: Result Comment: Canc elled via OM: Order cancelled - Patient discharged Performed By: #### L 100.0100, L500.2500 ####[facility] [address] [place], [address] NEUT% Normal 47-70 [facility] Comment on above: Result Comment: Canc elled via OM: Order cancelled - Patient discharged Performed By: #### L 100.0100, L500.2500 ####[facility] [address] [place], [address] PLT Normal 150-450 [facility] Comment on above: Result Comment: Canc elled via OM: Order cancelled - Patient discharged Performed By: #### L 100.0100, L500.2500 ####[facility] [address] [place], [address] RBC Normal 4.2-5.4 [facility] Comment on above: Result Comment: Canc elled via OM: Order cancelled - Patient discharged Performed By: #### L 100.0100, L500.2500 ####[facility] [address] [place], [address] RDW CV Normal 11.6-14.6 [facility] Comment on above: Result Comment: Canc elled via OM: Order cancelled - Patient discharged Performed By: #### L 100.0100, L500.2500 ####[facility] [address] [place], [address] RDW SD Normal 35.1-43.9 [facility] Comment on above: Result Comment: Canc elled via OM: Order cancelled - Patient discharged Performed By: #### L 100.0100, L500.2500 ####[facility] [address] [place], [address] WBC Normal 4.4-11.0 [facility] Comment on above: Result Comment: Canc elled via OM: Order cancelled - Patient discharged Performed By: #### L 100.0100, L500.2500 ####[facility] [address] [place], [address] Basic Metabolic Profile (BMP )on 08-06-2024 BUN/CRE 21.3 RATIO High 10-20 [facility] Comment on above: Performed By: #### L 500.2500, L100.0100 #### [facility] [address] [place], [address] Calcium [Mass/Vol] 8.4 mg/dL Normal 7.6-11.0 [facility] Comment on above: Performed By: #### L 500.2500, L100.0100 #### [facility] [address] [place], [address] Chloride [Moles/Vol] 104 mmol/L Normal 98-108 [facility] Comment on above: Performed By: #### L 500.2500, L100.0100 #### [facility] [address] [place], [address] CO2 [Moles/Vol] 23.0 mmol/L Normal 21.0-32.0 [facility] Comment on above: Performed By: #### L 500.2500, L100.0100 #### [facility] [address], [address] Creatinine [Mass/Vol] 0.73 mg/dL Normal 0.70-1.20 [facility] Comment on above: Performed By: #### L 500.2500, L100.0100 #### [facility] [address] [place], [address] ECRCL 47.19 ml/min Low 50-250 [facility] Comment on above: Performed By: #### L 500.2500, L100.0100 #### [facility] [address] [place], [address] GAP 9 Normal 5-15 [facility] Comment on above: Performed By: #### L 500.2500, L100.0100 #### [facility] [address] [place], [address] GFR/1.73 sq M.predicted among non-blacks MDRD (S/P/Bld) [Vol rate/Area] 82 mL/min/{1.73_m2} Normal >60 [facility] Comment on above: Result Comment: mL/m in/1.73m2 CKD-EPI Creatinine Equation (2020) Performed By: #### L 500.2500, L100.0100 #### [facility] [address] [place], [address] Glucose [Mass/Vol] 91 mg/dL Normal 70-99 [facility] Comment on above: Performed By: #### L 500.2500, L100.0100 #### [facility] [address] [place], [address] Potassium [Moles/Vol] 3.9 mmol/L Normal 3.3-5.1 [facility] Comment on above: Performed By: #### L 500.2500, L100.0100 #### [facility] [address] [place], [address] Sodium [Moles/Vol] 136 mmol/L Normal 133-145 [facility] Comment on above: Performed By: #### L 500.2500, L100.0100 #### [facility] [address] [place], [address] Urea nitrogen [Mass/Vol] 16 mg/dL Normal 4-19 [facility] Comment on above: Performed By: #### L 500.2500, L100.0100 #### [facility] [address] [place], [address] CBC W/Diff, Automatedon 05-0 2-2025 Absolute Lymph 1.76 X10 3/uL Normal 0.83-4.51 [facility] Comment on above: Performed By: #### L 500.2500, L100.0100 #### [facility] [address] [place], [address] Absolute Neut 2.3 X10 3/uL Normal 2.0-7.7 [facility] Comment on above: Performed By: #### L 500.2500, L100.0100 #### [facility] [address] [place], [address] Basophils/100 WBC (Bld) 0.4 % Normal 0-1 [facility] Comment on above: Performed By: #### L 500.2500, L100.0100 #### [facility] [address] [place], [address] Eosinophils/100 WBC (Bld) 3.0 % Normal 0-5 [facility] Comment on above: Performed By: #### L 500.2500, L100.0100 #### [facility] [address] [place], [address] Erythrocyte distribution width (RBC) [Ratio] 13.0 % Normal 11.6-14.6 [facility] Comment on above: Performed By: #### L 500.2500, L100.0100 #### [facility] [address] [place], [address] Hematocrit (Bld) [Volume fraction] 31.7 % Low 37-47 [facility] Comment on above: Performed By: #### L 500.2500, L100.0100 #### [facility] [address] [place], [address] Hemoglobin (Bld) [Mass/Vol] 10.6 g/dL Low 12.0-15.0 [facility] Comment on above: Performed By: #### L 500.2500, L100.0100 #### [facility] [address] [place], [address] IG% 0.200 Normal 0.0-0.9 [facility] Comment on above: Result Comment: IG% - Immature Granulocytes (promyelocytes, myelocytes and metamyelocytes) > 1% indicates that a LEFT SHIFT is Present. Performed By: #### L 500.2500, L100.0100 #### [facility] [address] [place], [address] Lymphocytes/100 WBC (Bld) 38.1 % Normal 19-41 [facility] Comment on above: Performed By: #### L 500.2500, L100.0100 #### [facility] [address] [place], [address] MCH (RBC) [Entitic mass] 30.5 pg Normal 27.0-32.0 [facility] Comment on above: Performed By: #### L 500.2500, L100.0100 #### [facility] [address] [place], [address] MCHC (RBC) [Mass/Vol] 33.4 g/dL Normal 32-36 [facility] Comment on above: Performed By: #### L 500.2500, L100.0100 #### [facility] [address] [place], [address] MCV (RBC) [Entitic vol] 91.4 fL Normal 81-99 [facility] Comment on above: Performed By: #### L 500.2500, L100.0100 #### [facility] [address] [place], [address] Monocytes/100 WBC (Bld) 8.0 % Normal 0-10 [facility] Comment on above: Performed By: #### L 500.2500, L100.0100 #### [facility] [address] [place], [address] Neutrophils/100 WBC (Bld) 50.3 % Normal 47-70 [facility] Comment on above: Performed By: #### L 500.2500, L100.0100 #### [facility] [address] [place], [address] Nucleated RBC (Bld) [#/Vol] 0 10*3/uL Normal 0-5 [facility] Comment on above: Performed By: #### L 500.2500, L100.0100 #### [facility] [address] [place], [address] Platelet mean volume (Bld) [Entitic vol] 9.4 fL Normal 6.2-12.0 [facility] Comment on above: Performed By: #### L 500.2500, L100.0100 #### [facility] [address] [place], [address] Platelets (Bld) [#/Vol] 189 10*3/uL Normal 150-450 [facility] Comment on above: Performed By: #### L 500.2500, L100.0100 #### [facility] [address] [place], [address] RBC (Bld) [#/Vol] 3.47 10*6/uL Low 4.2-5.4 [facility] Comment on above: Performed By: #### L 500.2500, L100.0100 #### [facility] [address] [place], [address] RDW SD 43.1 fl Normal 35.1-43.9 [facility] Comment on above: Performed By: #### L 500.2500, L100.0100 #### [facility] [address] [place], [address] WBC (Bld) [#/Vol] 4.6 10*3/uL Normal 4.4-11.0 [facility] Comment on above: Performed By: #### L 500.2500, L100.0100 #### [facility] [address] [place], [address] Basic Metabolic Profile (BMP )on 08-05-2024 BUN/CRE 18.1 RATIO Normal 10-20 [facility] Comment on above: Performed By: #### L 501.2300, L500.2500, L501.5200, L100.0100 ####[facility] [address] [place], [address] Calcium [Mass/Vol] 8.5 mg/dL Normal 7.6-11.0 [facility] Comment on above: Performed By: #### L 501.2300, L500.2500, L501.5200, L100.0100 ####[facility] [address] [place], [address] Chloride [Moles/Vol] 104 mmol/L Normal 98-108 [facility] Comment on above: Performed By: #### L 501.2300, L500.2500, L501.5200, L100.0100 ####[facility] [address] [place], [address] CO2 [Moles/Vol] 25.0 mmol/L Normal 21.0-32.0 [facility] Comment on above: Performed By: #### L 501.2300, L500.2500, L501.5200, L100.0100 ####[facility] [address] [place], [address] Creatinine [Mass/Vol] 0.85 mg/dL Normal 0.70-1.20 [facility] Comment on above: Performed By: #### L 501.2300, L500.2500, L501.5200, L100.0100 ####[facility] [address] [place], [address] ECRCL 44.41 ml/min Low 50-250 [facility] Comment on above: Performed By: #### L 501.2300, L500.2500, L501.5200, L100.0100 ####[facility] [address] [place], [address] GAP 7 Normal 5-15 [facility] Comment on above: Performed By: #### L 501.2300, L500.2500, L501.5200, L100.0100 ####[facility] [address] [place], [address] GFR/1.73 sq M.predicted among non-blacks MDRD (S/P/Bld) [Vol rate/Area] 68 mL/min/{1.73_m2} Normal >60 [facility] Comment on above: Result Comment: mL/m in/1.73m2 CKD-EPI Creatinine Equation (2020) Performed By: #### L 501.2300, L500.2500, L501.5200, L100.0100 ####[facility] [address] [place], [address] Glucose [Mass/Vol] 89 mg/dL Normal 70-99 [facility] Comment on above: Performed By: #### L 501.2300, L500.2500, L501.5200, L100.0100 ####[facility] [address] [place], [address] Potassium [Moles/Vol] 4.2 mmol/L Normal 3.3-5.1 [facility] Comment on above: Performed By: #### L 501.2300, L500.2500, L501.5200, L100.0100 ####[facility] [address] [place], [address] Sodium [Moles/Vol] 135 mmol/L Normal 133-145 [facility] Comment on above: Performed By: #### L 501.2300, L500.2500, L501.5200, L100.0100 ####[facility] [address] [place], [address] Urea nitrogen [Mass/Vol] 15 mg/dL Normal 4-19 [facility] Comment on above: Performed By: #### L 501.2300, L500.2500, L501.5200, L100.0100 ####[facility] [address] [place], [address] CBC W/Diff, Automatedon 05-0 -2024 Absolute Lymph 1.61 X10 3/uL Normal 0.83-4.51 [facility] Comment on above: Performed By: #### L 501.2300, L500.2500, L501.5200, L100.0100 #### [facility] [address] [place], [address] Absolute Neut 2.6 X10 3/uL Normal 2.0-7.7 [facility] Comment on above: Performed By: #### L 501.2300, L500.2500, L501.5200, L100.0100 #### [facility] [address] [place], [address] Basophils/100 WBC (Bld) 0.4 % Normal 0-1 [facility] Comment on above: Performed By: #### L 501.2300, L500.2500, L501.5200, L100.0100 #### [facility] [address] [place], [address] Eosinophils/100 WBC (Bld) 3.5 % Normal 0-5 [facility] Comment on above: Performed By: #### L 501.2300, L500.2500, L501.5200, L100.0100 #### [facility] [address] [place], [address] Erythrocyte distribution width (RBC) [Ratio] 13.0 % Normal 11.6-14.6 [facility] Comment on above: Performed By: #### L 501.2300, L500.2500, L501.5200, L100.0100 #### [facility] [address] [place], [address] Hematocrit (Bld) [Volume fraction] 31.5 % Low 37-47 [facility] Comment on above: Performed By: #### L 501.2300, L500.2500, L501.5200, L100.0100 #### [facility] [address] [place], [address] Hemoglobin (Bld) [Mass/Vol] 10.5 g/dL Low 12.0-15.0 [facility] Comment on above: Performed By: #### L 501.2300, L500.2500, L501.5200, L100.0100 #### [facility] [address] [place], [address] IG% 0.200 Normal 0.0-0.9 [facility] Comment on above: Result Comment: IG% - Immature Granulocytes (promyelocytes, myelocytes and metamyelocytes) > 1% indicates that a LEFT SHIFT is Present. Performed By: #### L 501.2300, L500.2500, L501.5200, L100.0100 #### [facility] [address] [place], [address] Lymphocytes/100 WBC (Bld) 33.3 % Normal 19-41 [facility] Comment on above: Performed By: #### L 501.2300, L500.2500, L501.5200, L100.0100 #### [facility] [address] [place], [address] MCH (RBC) [Entitic mass] 30.3 pg Normal 27.0-32.0 [facility] Comment on above: Performed By: #### L 501.2300, L500.2500, L501.5200, L100.0100 #### [facility] [address] [place], [address] MCHC (RBC) [Mass/Vol] 33.3 g/dL Normal 32-36 [facility] Comment on above: Performed By: #### L 501.2300, L500.2500, L501.5200, L100.0100 #### [facility] [address] [place], [address] MCV (RBC) [Entitic vol] 91.0 fL Normal 81-99 [facility] Comment on above: Performed By: #### L 501.2300, L500.2500, L501.5200, L100.0100 #### [facility] [address] [place], [address] Monocytes/100 WBC (Bld) 9.1 % Normal 0-10 [facility] Comment on above: Performed By: #### L 501.2300, L500.2500, L501.5200, L100.0100 #### [facility] [address] [place], [address] Neutrophils/100 WBC (Bld) 53.5 % Normal 47-70 [facility] Comment on above: Performed By: #### L 501.2300, L500.2500, L501.5200, L100.0100 #### [facility] [address] [place], [address] Nucleated RBC (Bld) [#/Vol] 0 10*3/uL Normal 0-5 [facility] Comment on above: Performed By: #### L 501.2300, L500.2500, L501.5200, L100.0100 #### [facility] [address] [place], [address] Platelet mean volume (Bld) [Entitic vol] 9.4 fL Normal 6.2-12.0 [facility] Comment on above: Performed By: #### L 501.2300, L500.2500, L501.5200, L100.0100 #### [facility] [address] [place], [address] Platelets (Bld) [#/Vol] 185 10*3/uL Normal 150-450 [facility] Comment on above: Performed By: #### L 501.2300, L500.2500, L501.5200, L100.0100 #### [facility] [address] [place], [address] RBC (Bld) [#/Vol] 3.46 10*6/uL Low 4.2-5.4 [facility] Comment on above: Performed By: #### L 501.2300, L500.2500, L501.5200, L100.0100 #### [facility] [address] [place], [address] RDW SD 42.6 fl Normal 35.1-43.9 [facility] Comment on above: Performed By: #### L 501.2300, L500.2500, L501.5200, L100.0100 #### [facility] [address] [place], [address] WBC (Bld) [#/Vol] 4.8 10*3/uL Normal 4.4-11.0 [facility] Comment on above: Performed By: #### L 501.2300, L500.2500, L501.5200, L100.0100 #### [facility] [address] [place], [address] Magnesiumon 08-05-2024 Magnesium [Mass/Vol] 2.1 mg/dL Normal 1.5-2.2 [facility] Comment on above: Performed By: #### L 501.2300, L500.2500, L501.5200, L100.0100 ####[facility] [address] [place], [address] Phosphoruson 08-05-2024 Phosphate [Mass/Vol] 2.3 mg/dL Low 2.7-4.5 [facility] Comment on above: Performed By: #### L 501.2300, L500.2500, L501.5200, L100.0100 ####[facility] [address] [place], [address] Small Bowel Series Onlyon Small Bowel Series Only [facility] Imaging Services [address] [place] [address] Small Bowel Series Only MR#: [id number] Acct: [id number] Name: MARY LI Rep #: [id number] : 1940 F 83 From: Ray Ayala MD PCP: Dr. Andria Steve DO Status: ADM IN Study: Small Bowel Series Only Date of Exam: 08/05/24 Exam# [id number] Ordering Dr: Delvin Harris PROCEDURE: SMALL BOWEL SERIES ONLY, 08/05/2024 REASON FOR EXAM: SBO TECHNIQUE: Aircraft Refueller AP images of the abdomen/pelvis were obtained. Subsequent serial imaging of the abdomen/pelvis was performed immediately following ingestion of Gastrografin oral contrast, at roughly 15 minutes, 30 minutes, 60 minutes, 80 minutes, 120 minutes, 3 hours, and finally at roughly 6 hours post-ingestion. Note the exam was performed outside the radiology department, by technologist, not in the presence of a radiologist. COMPARISON: 08/04/2024 FINDINGS: On demonstrator sewing techniques images, there is no visible bowel dilatation. Interval removal of the enteric tube. Degenerative changes of the hips and lumbar spine. On images labeled immediate through 30 minute images, contrast opacifies the stomach and proximal duodenum. On images labeled 60 minutes, contrast has propagated through mid to distal small bowel loops but not into the colon. On images labeled 90 minutes, contrast opacifies the cecum and ascending colon to at least the level of the hepatic flexure. On images labeled 3 hours, contrast reaches the level of the colonic splenic flexure. On images labeled 6 hours, contrast reaches the level of the descending colon and probably the rectum. Cecum mildly dilated to 8.6 cm. No definitive small bowel dilatation allowing for superimposition of loops RAD/Small Bowel Series Only IMPRESSION: 1. Contrast reaches the cecum/proximal colon on images labeled 90 minutes. This excludes complete small-bowel obstruction although technically 90 minutes represents borderline prolonged small bowel transit time and therefore persistent partial obstruction and/or ileus are possible. 2. Mild dilatation of the cecum may additionally represent colonic ileus. 3. Additional description as above. Reading Location: [id number] CC: Dr. Delvin Harris MD; Dr. Andria Steve DO Burner Technician: Signed Normal [facility] Urine Cultureon 08-05-2024 URC Escherichia coli [place] Count >100,000 Escherichia coli: REACTION Ampicillin Islt NATALIO <=2 Ampicillin+Sulbac Islt NATALIO <=2 S Cefepime Islt NATALIO <=0.12 S cefTRIAXone Islt NATALIO <=0.25 S Ciprofloxacin Islt NATALIO <=0.06 S B-Lactamase Extended Susc Islt NEG Gentamicin Islt NATALIO <=1 S levoFLOXacin Islt NATALIO <=0.12 S Meropenem Islt NATALIO <=0.25 S Nitrofurantoin Islt NATALIO <=16 S Pip+Tazo Islt NATALOI <=4 S TMP SMX Islt NATALIO >=320 R Normal [facility] Comment on above: Performed By: #### M 100.2200 ####[facility] [address] [facility]. [place], [place], [id number] Abdomen Single View (Portabl e)on 08-04-2024 Abdomen Single View (Portable) [facility] Imaging Services [address] [place], [place] [address] Abdomen Single View (Portable) MR#: [id number] Acct: [id number] Name: MARY LI CHRISTO Rep #: [id number] : 1940 F 83 From: Amilcar Rosenbaum MD PCP: Dr. Andria Steve, DO Status: ADM IN Study: Abdomen Single View (Portable) Date of Exam: 0 08/04/24 Exam# [id number] Ordering Dr: Tierra Humphreys MD PROCEDURE: ABDOMEN SINGLE VIEW (PORTABLE) 08/04/2024 REASON FOR EXAM: SBO TECHNIQUE: Single view abdomen. COMPARISON: August 03, 2024 FINDINGS: There is an enteric tube seen with its tip below the diaphragm on the left, likely in the stomach. There are air-filled small bowel loops visible measuring 3.6 cm in the left abdomen. There are no visible air-fluid levels. Gas and stool is noted in the colon and rectum. There is no visible free air. Contrast is visible in the bladder. There is no acute bony abnormality or visible renal calcification. RAD/Abdomen Single View (Portable) IMPRESSION: There is an enteric tube seen with its tip below the diaphragm on the left, likely in the stomach. There are air-filled small bowel loops visible measuring 3.6 cm in the left abdomen, similar to the prior. Reading Location: ANTHONY CC: Dr. Tierra Humphreys MD; Dr. Andria Steve DO Burner Technician: Signed Normal [facility] CBC W/Diff, Automatedon - Absolute Lymph 1.22 X10 3/uL Normal 0.83-4.51 [facility] Comment on above: Performed By: #### L 100.0100, L500.4050 ####[facility] [address] [place], [address] Absolute Neut 5.2 X10 3/uL Normal 2.0-7.7 [facility] Comment on above: Performed By: #### L 100.0100, L500.4050 ####[facility] [address] [place], [address] Basophils/100 WBC (Bld) 0.1 % Normal 0-1 [facility] Comment on above: Performed By: #### L 100.0100, L500.4050 ####[facility] [address] [place], [address] Eosinophils/100 WBC (Bld) 0.4 % Normal 0-5 [facility] Comment on above: Performed By: #### L 100.0100, L500.4050 ####[facility] [address] [place], [address] Erythrocyte distribution width (RBC) [Ratio] 13.2 % Normal 11.6-14.6 [facility] Comment on above: Performed By: #### L 100.0100, L500.4050 ####[facility] [address] [place], [address] Hematocrit (Bld) [Volume fraction] 32.5 % Low 37-47 [facility] Comment on above: Performed By: #### L 100.0100, L500.4050 ####[facility] [address] [place], [address] Hemoglobin (Bld) [Mass/Vol] 10.7 g/dL Low 12.0-15.0 [facility] Comment on above: Performed By: #### L 100.0100, L500.4050 ####[facility] [address] [place], [address] IG% 0.400 Normal 0.0-0.9 [facility] Comment on above: Result Comment: IG% - Immature Granulocytes (promyelocytes, myelocytes and metamyelocytes) > 1% indicates that a LEFT SHIFT is Present. Performed By: #### L 100.0100, L500.4050 ####[facility] [address] [place], [address] Lymphocytes/100 WBC (Bld) 17.2 % Low 19-41 [facility] Comment on above: Performed By: #### L 100.0100, L500.4050 ####[facility] [address] [place], [address] MCH (RBC) [Entitic mass] 30.1 pg Normal 27.0-32.0 [facility] Comment on above: Performed By: #### L 100.0100, L500.4050 ####[facility] [address] [place], [address] MCHC (RBC) [Mass/Vol] 32.9 g/dL Normal 32-36 [facility] Comment on above: Performed By: #### L 100.0100, L500.4050 ####[facility] [address] [place], [address] MCV (RBC) [Entitic vol] 91.3 fL Normal 81-99 [facility] Comment on above: Performed By: #### L 100.0100, L500.4050 ####[facility] [address] [place], [address] Monocytes/100 WBC (Bld) 7.9 % Normal 0-10 [facility] Comment on above: Performed By: #### L 100.0100, L500.4050 ####[facility] [address] [place], [address] Neutrophils/100 WBC (Bld) 74.0 % High 47-70 [facility] Comment on above: Performed By: #### L 100.0100, L500.4050 ####[facility] [address] [place], [address] Nucleated RBC (Bld) [#/Vol] 0 10*3/uL Normal 0-5 [facility] Comment on above: Performed By: #### L 100.0100, L500.4050 ####[facility] [address] [place], [address] Platelet mean volume (Bld) [Entitic vol] 9.8 fL Normal 6.2-12.0 [facility] Comment on above: Performed By: #### L 100.0100, L500.4050 ####[facility] [address] [place], [address] Platelets (Bld) [#/Vol] 201 10*3/uL Normal 150-450 [facility] Comment on above: Performed By: #### L 100.0100, L500.4050 ####[facility] [address] [place], [address] RBC (Bld) [#/Vol] 3.56 10*6/uL Low 4.2-5.4 [facility] Comment on above: Performed By: #### L 100.0100, L500.4050 ####[facility] [address] [place], [address] RDW SD 44.2 fl High 35.1-43.9 [facility] Comment on above: Performed By: #### L 100.0100, L500.4050 ####[facility] [address] [place], [address] WBC (Bld) [#/Vol] 7.1 10*3/uL Normal 4.4-11.0 [facility] Comment on above: Performed By: #### L 100.0100, L500.4050 ####[facility] [address] [place], [address] Comprehensive Metabolic Prof wion 08-04-2024 Albumin [Mass/Vol] 3.5 g/dL Normal 3.4-4.8 [facility] Comment on above: Performed By: #### L 100.0100, L500.4050 ####[facility] [address] [place], [address] Albumin/Globulin [Mass ratio] 1.4 {ratio} Normal 0.9-2.4 [facility] Comment on above: Performed By: #### L 100.0100, L500.4050 ####[facility] [address] [place], [address] ALK PHOS 53 U/L Normal 35-104 [facility] Comment on above: Performed By: #### L 100.0100, L500.4050 ####[facility] [address] [place], [address] ALT [Catalytic activity/Vol] 16 U/L Normal <=34 [facility] Comment on above: Performed By: #### L 100.0100, L500.4050 ####[facility] [address] [place], [address] AST [Catalytic activity/Vol] 29 U/L Normal <=31 [facility] Comment on above: Performed By: #### L 100.0100, L500.4050 ####[facility] [address] [place], [address] Bilirubin [Mass/Vol] 0.58 mg/dL Normal 0.00-1.30 [facility] Comment on above: Performed By: #### L 100.0100, L500.4050 ####[facility] [address] [place], [address] BUN/CRE 23.2 RATIO High 10-20 [facility] Comment on above: Performed By: #### L 100.0100, L500.4050 ####[facility] [address] [place], [address] Calcium [Mass/Vol] 8.8 mg/dL Normal 7.6-11.0 [facility] Comment on above: Performed By: #### L 100.0100, L500.4050 ####[facility] [address] [place], [address] Chloride [Moles/Vol] 100 mmol/L Normal 98-108 [facility] Comment on above: Performed By: #### L 100.0100, L500.4050 ####[facility] [address] [place], [address] CO2 [Moles/Vol] 23.1 mmol/L Normal 21.0-32.0 [facility] Comment on above: Performed By: #### L 100.0100, L500.4050 ####[facility] [address] [place], [address] Creatinine [Mass/Vol] 1.13 mg/dL Normal 0.70-1.20 [facility] Comment on above: Performed By: #### L 100.0100, L500.4050 ####[facility] [address] [place], [address] ECRCL 33.94 ml/min Low 50-250 [facility] Comment on above: Performed By: #### L 100.0100, L500.4050 ####[facility] [address] [place], [address] GAP 10 Normal 5-15 [facility] Comment on above: Performed By: #### L 100.0100, L500.4050 ####[facility] [address] [place], [address] GFR/1.73 sq M.predicted among non-blacks MDRD (S/P/Bld) [Vol rate/Area] 48 mL/min/{1.73_m2} Low >60 [facility] Comment on above: Result Comment: mL/m in/1.73m2 CKD-EPI Creatinine Equation (2020) Performed By: #### L 100.0100, L500.4050 ####[facility] [address] [place], [address] Globulin (S) [Mass/Vol] 2.5 g/dL Normal 2.2-4.2 [facility] Comment on above: Performed By: #### L 100.0100, L500.4050 ####[facility] [address] [place], [address] Glucose [Mass/Vol] 93 mg/dL Normal 70-99 [facility] Comment on above: Performed By: #### L 100.0100, L500.4050 ####[facility] [address] [place], [address] Potassium [Moles/Vol] 4.7 mmol/L Normal 3.3-5.1 [facility] Comment on above: Performed By: #### L 100.0100, L500.4050 ####[facility] [address] [place], [address] Sodium [Moles/Vol] 134 mmol/L Normal 133-145 [facility] Comment on above: Performed By: #### L 100.0100, L500.4050 ####[facility] [address] [place], [address] T PROT 6.1 g/dL Normal 5.9-8.4 [facility] Comment on above: Performed By: #### L 100.0100, L500.4050 ####[facility] [address] [place], [address] Urea nitrogen [Mass/Vol] 26 mg/dL High 4-19 [facility] Comment on above: Performed By: #### L 100.0100, L500.4050 ####[facility] [address] [place], [address] Consultation - Surgicalon Consultation - Surgical [facility] Medical Records Department [address] [facility] [place] [address] Consultation - Surgical 08/04/24 0737 MR#: [id number] Acct: [id number] Name: MARY LI CHRISTO Rep #: [id number] : 1940 83 From: Delvin Harris MD PCP: Dr. Andria Steve, DO Status:ADM IN [facility] Assessment Plan Assessment/Plan (1) SBO (small bowel obstruction): PLAN: The patient reports that she is passing some gas this morning. She had only about 100 cc out of her NG since midnight. I believe that she is starting to resolve her small bowel obstruction. Her abdomen was soft and mildly distended. I would like to decompress her for day and perform a small bowel follow-through tomorrow. If she continues to improve we may possibly remove her NG later this afternoon. Delvin Harris MD Pager: [facility] [address] [place] [address] [facility], [address] [place] [address] Office: HPI Consult Data Date of Consult: 08/04/24 HPI Narrative HPI Narrative: MARY LI, is a 83 F who presents with 2 days of nausea and vomiting. The patient reported that she was having abdominal pain and nausea and vomiting and presented to the emergency room. NG tube was placed. The patient has had bowel obstruction in the past. She has had several surgeries including cholecystectomy and partial colon resection. She had a bowel obstruction last June that resolved on its own. [facility] Medical History Hx of small bowel obstruction Cholesterolosis Acid reflux Sleep apnea Arthritis History of back problems Home Medications ???Medication ???Instructions ???Recorded ???Last Taken ???Type echinacea 400 mg capsule 400 mg PO DAILY PRN immunity 10/1510/18/18 History omega-3 fatty acids 1,000 mg 1,000 mg PO DAILY 10/15/18 9 History capsule multivitamin with minerals 1 ea PO DAILY 10/19/18 10/18/18 Hi story ondansetron HCl 4 mg tablet 4 mg PO DAILY PRN nausea and 08/0308/03/24 History vomiting sulfamethoxazole 400 1 tab PO QDAY 08/04/23 Unknown His tory mg-trimethoprim 80 mg tablet dicyclomine 20 mg tablet 20 mg PO TID #270 tabs 08/27/23 Un known Rx d-mannose 500 mg capsule (AZO 500 mg PO DAILY 08/03/24 Unknown H istory D-Mannose) famotidine 20 mg tablet (Acid 20 mg PO BID PRN stomach upset Unknown History Controller) fluticasone propionate 50 1 - 2 spray intranasal DAILY PRN 0 08/03/24 Unknown History mcg/actuation nasal allergy symptoms spray,suspension (Allergy Relief (fluticasone)) lorazepam 0.5 mg tablet 0.5 mg PO DAILY PRN anxiety 08/02/24 History melatonin 5 mg tablet 5 - 10 mg PO DAILY PRN sleep 08/03 Unknown History Allergy/AdvReac Type Severity Reaction Status Date / Time Iodinated Contrast Media Allergy Intermediate Hives Verified 08/03/24 14:52 (contrast dye - iodinated) iohexol Allergy Hives Verified 08/03/24 14:52 codeine AdvReac Nausea/Vom/ Verified 08/03/24 14:52 Diarrhea Family History Father Cancer prostate Brother Cancer brain Seizures Mother Colon cancer Surgical History History of colonoscopy ( 2019) Hx laparoscopic cholecystectomy History of open sigmoidectomy History of colonoscopy history excision colon polyps History of arthroscopy of left knee Social History household members: none Smoking Status: Never smoker alcohol intake: never substance use type: does not use ROS Constitutional Constitutional: Denies anorexia, chills or fatigue Eyes Eyes: Denies blurry vision ENT HEENT: Denies abnormal hearing Cardiovascular Cardiovascular: Denies chest pain Respiratory/Chest Respiratory/Chest: Denies cough or dyspnea Gastrointestinal Gastrointestinal: Reports abdominal pain, nausea and vomiting; Denies constipation or diarrhea Genitourinary Genitourinary: Denies change in urinary stream Musculoskeletal Musculoskeletal: Denies abnormal gait Integumentary Integumentary: Denies jaundice or new lesions Neurologic Neurologic: Denies abnormal gait or dizziness Psychiatric Psychiatric: Denies anxiety or depression Endocrine Endocrinology: Denies flushing Physical Exam Const alert and oriented x3 HEENT normocephalic Eyes PERRL Resp normal respiratory effort Cardio Rate: regular rate Rhythm: regular rhythm GI soft to palpation, non-tender and non-distended Lab / Micro Data 08/03/24 17:50 08/03/24 17:50 Labs: Laboratory Results - last 24 hr 08/03/24 15:33: WBC 10.3, RBC 4. (more content not included)... Normal [facility] Consultation - Urologyon Consultation - Urology [facility] Medical Records Department [address] [place] [address] Consultation - Urology 08/04/24 1205 MR#: [id number] Acct: [id number] Name: MARY LI Rep #: [id number] : 1940 83 From: Osman Edwards MD PCP: Dr. Andria Steve, DO Status:ADM IN [facility] [id number] Assessment Plan Assessment/Plan (1) Left renal mass: PLAN: Left renal mass small in the left kidney can follow-up as an outpatient with urology for further workup HPI Consult Data Date of Consult: 08/04/24 HPI Narrative Reason for Consultation: Soft tissue mass in the left kidney HPI Narrative: MARY STRONGOSKY, is a 83 F who presents to the hospital with intestinal obstruction she has an NG tube in place CAT scan was done that demonstrates a mass in the left kidney the soft tissue mass. This was seen on the prior CAT scan the mass is fairly small only about 2 to 3 cm in size it is possible it could be malignant possibly could be benign this was explained to the patient the patient was aware of the mass is quite small so no immediate intervention is necessary and in fact in most cases we do observation of these masses in the elderly patient to see if it is really necessary to do any surgery. She can follow-up with me as an outpatient in the office to continue surveillance of this mass once she is discharged in the hospital. [facility] Medical History Hx of small bowel obstruction Cholesterolosis Acid reflux Sleep apnea Arthritis History of back problems Home Medications ???Medication ???Instructions ???Recorded ???Last Taken ???Type echinacea 400 mg capsule 400 mg PO DAILY PRN immunity 10/1510/18/18 History omega-3 fatty acids 1,000 mg 1,000 mg PO DAILY 10/15/18 9 History capsule multivitamin with minerals 1 ea PO DAILY 10/19/18 10/18/18 Hi story ondansetron HCl 4 mg tablet 4 mg PO DAILY PRN nausea and 08/0308/03/24 History vomiting sulfamethoxazole 400 1 tab PO QDAY 08/04/23 Unknown His tory mg-trimethoprim 80 mg tablet dicyclomine 20 mg tablet 20 mg PO TID #270 tabs 08/27/23 Un known Rx d-mannose 500 mg capsule (AZO 500 mg PO DAILY 08/03/24 Unknown H istory D-Mannose) famotidine 20 mg tablet (Acid 20 mg PO BID PRN stomach upset Unknown History Controller) fluticasone propionate 50 1 - 2 spray intranasal DAILY PRN 0 08/03/24 Unknown History mcg/actuation nasal allergy symptoms spray,suspension (Allergy Relief (fluticasone)) lorazepam 0.5 mg tablet 0.5 mg PO DAILY PRN anxiety 08/02/24 History melatonin 5 mg tablet 5 - 10 mg PO DAILY PRN sleep 08/03 Unknown History Allergy/AdvReac Type Severity Reaction Status Date / Time Iodinated Contrast Media Allergy Intermediate Hives Verified 08/03/24 14:52 (contrast dye - iodinated) iohexol Allergy Hives Verified 08/03/24 14:52 codeine AdvReac Nausea/Vom/ Verified 08/03/24 14:52 Diarrhea Family History Father Cancer prostate Brother Cancer brain Seizures Mother Colon cancer Surgical History History of colonoscopy ( 2019) Hx laparoscopic cholecystectomy History of open sigmoidectomy History of colonoscopy history excision colon polyps History of arthroscopy of left knee Social History household members: none Smoking Status: Never smoker alcohol intake: never substance use type: does not use Physical Exam Const alert and oriented x3 General Appearance: cooperative HEENT normocephalic and head/scalp atraumatic Eyes PERRL and EOMs intact bilaterally Neck supple, no JVD and no carotid bruits Resp normal respiratory effort, normal air movement and clear to auscultation bilaterally Cardio regular rate and no murmurs GI normal to inspection, nondistended, normoactive bowel sounds and soft to palpation Extremity normal capillary refill General Extremity: no tenderness to palpation of joints or extremities; Negative for edema Skin no rashes or lesions noted and no wounds General Skin Exam: no breakdown Neuro CN's II-XII intact bilaterally Psych affect normal Appearance: appropriate Lab / Micro Data 08/04/24 07:47 08/04/24 07:47 Labs: Laboratory Results - last 24 hr 08/03/24 15:33: WBC 10.3, RBC 4.49, Hgb 13.7, Hct 40.5, MCV 90.2, MCH 30.5, MCHC 33.8, RDW Std Deviation 43.4, RDW Coeff of Shira 13.1, Plt Count 260, MPV 10.0, Immature Gran % (Auto) 0.500, Neut % (Auto) 79.7 H, Lymph % (Auto) 13.2 L, [place] % (Auto) 6.3, Eos % (Auto) 0.1, Baso % (Auto) 0.2, A bsolute Neuts (auto) 8.2 H, Absolute Lymphs (auto) 1.35, Nucleated RBC % 0, [place]od[place] (more content not included)... Normal [facility] Abdomen Single View (Portabl e)on 08-03-2024 Abdomen Single View (Portable) [facility] Imaging Services [address] [place] [address] Abdomen Single View (Portable) MR#: [id number] Acct: [id number] Name: MARY LI CHRISTO Rep #: [id number] : 1940 F 83 From: Oscar Tabares MD PCP: Dr. Andria Steve DO Status: ADM IN Study: Abdomen Single View (Portable) Date of Exam: 0 08/03/24 Exam# [id number] Ordering Dr: Marino Burgos MD PROCEDURE: ABDOMEN SINGLE VIEW (PORTABLE) 08/03/2024 REASON FOR EXAM: NG INSERTION TECHNIQUE: Single view abdomen. FINDINGS: Bowel gas: Bowel gas pattern is normal. No evidence of bowel obstruction. Calcifications: No suspicious calcifications. Bones: The bones are unremarkable. Other: Nasogastric tube with the tip in the left upper quadrant likely in the body of the stomach. RAD/Abdomen Single View (Portable) IMPRESSION: Nasogastric tube with the tip in the left upper quadrant likely in the body of the stomach. No bowel obstruction. Reading Location: [id number] CC: Dr. Andria Steve DO; Dr. Marino Burgos MD Burner Technician: Signed Normal [facility] Abdomen/Pelvis W IV Cont ONL Yon 08-03-2024 Abdomen/Pelvis W IV Cont ONLY [facility] Imaging Services [address] [facility] [place] [address] Abdomen/Pelvis W IV Cont ONLY MR#: [id number] Acct: [id number] Name: MARY LI Rep #: [id number] : 1940 F 83 From: Addison arias MD PCP: Dr. Andrai Steve DO Status: REG ER Study: Abdomen/Pelvis W IV Cont ONLY Date of Exam: Exam# [id number] Ordering Dr: Marino Burgos MD PROCEDURE: ABDOMEN/PELVIS W IV CONT ONLY 08/03/2024 REASON FOR EXAM: DISTENTION, NO BOWEL MOVEMENT, NO FLATUS, HISTORY TECHNIQUE: Abdomen and pelvis CT with intravenous contrast. Coronal and Sagittal reconstruction series were provided. PATIENT PREPARATION: Per protocol ORAL CONTRAST TYPE: None. AMOUNT: mL CONTRAST: Omnipaque 350 VOLUME: 100 choose 1 mL Gauge IV One or more dose reduction techniques were used (e.g., Automated exposure control, adjustment of the mA and/or kV according to patient size, use of iterative reconstruction technique. COMPARISON: None FINDINGS: Lung bases: Mild cardiomegaly. No focal consolidation. Liver: Normal size. No mass. Gallbladder: Mild-moderate pneumobilia. No intrahepatic ductal dilation. No common bile duct dilation. Status post cholecystectomy. Spleen: Normal size. Pancreas: Normal size without evidence of mass surrounding inflammation or ductal dilation. Adrenals: Unremarkable Kidneys: 20 mm left upper pole simple cyst. 20 x 12 mm left interpolar region exophytic mildly enhancing lesion (series 601, image 76, series 2, image 32). Moderate right pelviectasis. No calculi or hydronephrosis. . Bladder: Urinary bladder is unremarkable. Reproductive Organs: No pelvic mass. Bowel: Fluid-filled moderately distended stomach. Multiple dilated small bowel loops, measuring up to 4.1 cm with transition point at the duodenojejunal junction (series 2 image 42), compatible with acute small bowel obstruction. No pneumoperitoneum. Distal colonic loops are collapsed. Colonic diverticulosis without diverticulitis. Normal appendix. Lymph nodes: No suspicious lymph node enlargement. Vasculature: Mild diffuse atherosclerotic calcifications are noted. Peritoneum / Retroperitoneum: No ascites. No pneumoperitoneum. Bones: Degenerative changes of the spine. CT/Abdomen/Pelvis W IV Cont ONLY IMPRESSION: 1. Multiple dilated small bowel loops, measuring up to 4.1 cm with transition point at the duodeno- jejunal junction, compatible small bowel obstruction. No pneumoperitoneum to suggest viscus perforation. 2. 20 x 12 mm left interpolar region exophytic mildly enhancing lesion, suspicious for renal cell carcinoma. Recommend dedicated MRI kidney protocol. 3. Other findings as described above. Reading Location: [facility] CC: Dr. Andria Steve DO; Dr. Marino Burgos MD Burner Technician: Signed Normal [facility] CBC W/Diff, Automatedon 04-2 Absolute Lymph 1.61 X10 3/uL Normal 0.83-4.51 [facility] Comment on above: Performed By: #### L 100.0100, L503.6005, L500.4050 ####[facility] [address] [place], [address] Absolute Neut 7.0 X10 3/uL Normal 2.0-7.7 [facility] Comment on above: Performed By: #### L 100.0100, L503.6005, L500.4050 ####[facility] [address] [place], [address] Basophils/100 WBC (Bld) 0.1 % Normal 0-1 [facility] Comment on above: Performed By: #### L 100.0100, L503.6005, L500.4050 ####[facility] [address] [place], [address] Eosinophils/100 WBC (Bld) 0.1 % Normal 0-5 [facility] Comment on above: Performed By: #### L 100.0100, L503.6005, L500.4050 ####[facility] [address] [place], [address] Erythrocyte distribution width (RBC) [Ratio] 13.2 % Normal 11.6-14.6 [facility] Comment on above: Performed By: #### L 100.0100, L503.6005, L500.4050 ####[facility] [address] [place], [address] Hematocrit (Bld) [Volume fraction] 38.3 % Normal 37-47 [facility] Comment on above: Performed By: #### L 100.0100, L503.6005, L500.4050 ####[facility] [address] [place], [address] Hemoglobin (Bld) [Mass/Vol] 12.9 g/dL Normal 12.0-15.0 [facility] Comment on above: Performed By: #### L 100.0100, L503.6005, L500.4050 ####[facility] [address] [place], [address] IG% 0.200 Normal 0.0-0.9 [facility] Comment on above: Result Comment: IG% - Immature Granulocytes (promyelocytes, myelocytes and metamyelocytes) > 1% indicates that a LEFT SHIFT is Present. Performed By: #### L 100.0100, L503.6005, L500.4050 ####[facility] [address] [place], [address] Lymphocytes/100 WBC (Bld) 17.3 % Low 19-41 [facility] Comment on above: Performed By: #### L 100.0100, L503.6005, L500.4050 ####[facility] [address] [place], [address] MCH (RBC) [Entitic mass] 30.4 pg Normal 27.0-32.0 [facility] Comment on above: Performed By: #### L 100.0100, L503.6005, L500.4050 ####[facility] [address] [place], [address] MCHC (RBC) [Mass/Vol] 33.7 g/dL Normal 32-36 [facility] Comment on above: Performed By: #### L 100.0100, L503.6005, L500.4050 ####[facility] [address] [place], [address] MCV (RBC) [Entitic vol] 90.3 fL Normal 81-99 [facility] Comment on above: Performed By: #### L 100.0100, L503.6005, L500.4050 ####[facility] [address] [place], [address] Monocytes/100 WBC (Bld) 7.5 % Normal 0-10 [facility] Comment on above: Performed By: #### L 100.0100, L503.6005, L500.4050 ####[facility] [address] [place], [address] Neutrophils/100 WBC (Bld) 74.8 % High 47-70 [facility] Comment on above: Performed By: #### L 100.0100, L503.6005, L500.4050 ####[facility] [address] [place], [address] Nucleated RBC (Bld) [#/Vol] 0 10*3/uL Normal 0-5 [facility] Comment on above: Performed By: #### L 100.0100, L503.6005, L500.4050 ####[facility] [address] [place], [address] Platelet mean volume (Bld) [Entitic vol] 9.5 fL Normal 6.2-12.0 [facility] Comment on above: Performed By: #### L 100.0100, L503.6005, L500.4050 ####[facility] [address] [place], [address] Platelets (Bld) [#/Vol] 232 10*3/uL Normal 150-450 [facility] Comment on above: Performed By: #### L 100.0100, L503.6005, L500.4050 ####[facility] [address] [place], [address] RBC (Bld) [#/Vol] 4.24 10*6/uL Normal 4.2-5.4 [facility] Comment on above: Performed By: #### L 100.0100, L503.6005, L500.4050 ####[facility] [address] [place], [address] RDW SD 43.2 fl Normal 35.1-43.9 [facility] Comment on above: Performed By: #### L 100.0100, L503.6005, L500.4050 ####[facility] [address] [place], [address] WBC (Bld) [#/Vol] 9.3 10*3/uL Normal 4.4-11.0 [facility] Comment on above: Performed By: #### L 100.0100, L503.6005, L500.4050 ####[facility] [address] [place], [address] Absolute Lymph 1.35 X10 3/uL Normal 0.83-4.51 [facility] Comment on above: Performed By: #### L 500.4050, L501.2450, L100.0100 #### [facility] [address] [place], [address] Absolute Neut 8.2 X10 3/uL High 2.0-7.7 [facility] Comment on above: Performed By: #### L 500.4050, L501.2450, L100.0100 #### [facility] [address] [place], [address] Basophils/100 WBC (Bld) 0.2 % Normal 0-1 [facility] Comment on above: Performed By: #### L 500.4050, L501.2450, L100.0100 #### [facility] [address] [place], [address] Eosinophils/100 WBC (Bld) 0.1 % Normal 0-5 [facility] Comment on above: Performed By: #### L 500.4050, L501.2450, L100.0100 #### [facility] [address] [place], [address] Erythrocyte distribution width (RBC) [Ratio] 13.1 % Normal 11.6-14.6 [facility] Comment on above: Performed By: #### L 500.4050, L501.2450, L100.0100 #### [facility] [address] [place], [address] Hematocrit (Bld) [Volume fraction] 40.5 % Normal 37-47 [facility] Comment on above: Performed By: #### L 500.4050, L501.2450, L100.0100 #### [facility] [address] [place], [address] Hemoglobin (Bld) [Mass/Vol] 13.7 g/dL Normal 12.0-15.0 [facility] Comment on above: Performed By: #### L 500.4050, L501.2450, L100.0100 #### [facility] [address] [place], [address] IG% 0.500 Normal 0.0-0.9 [facility] Comment on above: Result Comment: IG% - Immature Granulocytes (promyelocytes, myelocytes and metamyelocytes) > 1% indicates that a LEFT SHIFT is Present. Performed By: #### L 500.4050, L501.2450, L100.0100 #### [facility] [address] [place], [address] Lymphocytes/100 WBC (Bld) 13.2 % Low 19-41 [facility] Comment on above: Performed By: #### L 500.4050, L501.2450, L100.0100 #### [facility] [address] [place], [address] MCH (RBC) [Entitic mass] 30.5 pg Normal 27.0-32.0 [facility] Comment on above: Performed By: #### L 500.4050, L501.2450, L100.0100 #### [facility] [address] [place], [address] MCHC (RBC) [Mass/Vol] 33.8 g/dL Normal 32-36 [facility] Comment on above: Performed By: #### L 500.4050, L501.2450, L100.0100 #### [facility] [address] [place], [address] MCV (RBC) [Entitic vol] 90.2 fL Normal 81-99 [facility] Comment on above: Performed By: #### L 500.4050, L501.2450, L100.0100 #### [facility] [address] [place], [address] Monocytes/100 WBC (Bld) 6.3 % Normal 0-10 [facility] Comment on above: Performed By: #### L 500.4050, L501.2450, L100.0100 #### [facility] [address], [address] Neutrophils/100 WBC (Bld) 79.7 % High 47-70 [facility] Comment on above: Performed By: #### L 500.4050, L501.2450, L100.0100 #### [facility] [address], [address] Nucleated RBC (Bld) [#/Vol] 0 10*3/uL Normal 0-5 [facility] Comment on above: Performed By: #### L 500.4050, L501.2450, L100.0100 #### [facility] [address] [place], [address] Platelet mean volume (Bld) [Entitic vol] 10.0 fL Normal 6.2-12.0 [facility] Comment on above: Performed By: #### L 500.4050, L501.2450, L100.0100 #### [facility] [address] [place], [address] Platelets (Bld) [#/Vol] 260 10*3/uL Normal 150-450 [facility] Comment on above: Performed By: #### L 500.4050, L501.2450, L100.0100 #### [facility] [address] [place], [address] RBC (Bld) [#/Vol] 4.49 10*6/uL Normal 4.2-5.4 [facility] Comment on above: Performed By: #### L 500.4050, L501.2450, L100.0100 #### [facility] [address] [place], [address] RDW SD 43.4 fl Normal 35.1-43.9 [facility] Comment on above: Performed By: #### L 500.4050, L501.2450, L100.0100 #### [facility] [address] [place], [address] WBC (Bld) [#/Vol] 10.3 10*3/uL Normal 4.4-11.0 [facility] Comment on above: Performed By: #### L 500.4050, L501.2450, L100.0100 #### [facility] [address] [place], [address] Comprehensive Metabolic Prof ilon 08-03-2024 Albumin [Mass/Vol] 4.2 g/dL Normal 3.4-4.8 [facility] Comment on above: Performed By: #### L 100.0100, L503.6005, L500.4050 ####[facility] [address] [place], [address] Albumin/Globulin [Mass ratio] 1.4 {ratio} Normal 0.9-2.4 [facility] Comment on above: Performed By: #### L 100.0100, L503.6005, L500.4050 ####[facility] [address] [place], [address] ALK PHOS 66 U/L Normal 35-104 [facility] Comment on above: Performed By: #### L 100.0100, L503.6005, L500.4050 ####[facility] [address] [place], [address] ALT [Catalytic activity/Vol] 17 U/L Normal <=34 [facility] Comment on above: Performed By: #### L 100.0100, L503.6005, L500.4050 ####[facility] [address] [place], [address] AST [Catalytic activity/Vol] 34 U/L High <=31 [facility] Comment on above: Performed By: #### L 100.0100, L503.6005, L500.4050 ####[facility] [address] [place], [address] Bilirubin [Mass/Vol] 0.77 mg/dL Normal 0.00-1.30 [facility] Comment on above: Performed By: #### L 100.0100, L503.6005, L500.4050 ####[facility] [address] [place], [address] BUN/CRE 18.6 RATIO Normal 10-20 [facility] Comment on above: Performed By: #### L 100.0100, L503.6005, L500.4050 ####[facility] [address] [place], [address] Calcium [Mass/Vol] 10.6 mg/dL Normal 7.6-11.0 [facility] Comment on above: Performed By: #### L 100.0100, L503.6005, L500.4050 ####[facility] [address] [place], [address] Chloride [Moles/Vol] 89 mmol/L Low 98-108 [facility] Comment on above: Performed By: #### L 100.0100, L503.6005, L500.4050 ####[facility] [address] [place], [address] CO2 [Moles/Vol] 26.7 mmol/L Normal 21.0-32.0 [facility] Comment on above: Performed By: #### L 100.0100, L503.6005, L500.4050 ####[facility] [address] [place], [address] Creatinine [Mass/Vol] 1.55 mg/dL High 0.70-1.20 [facility] Comment on above: Performed By: #### L 100.0100, L503.6005, L500.4050 ####[facility] [address] [place], [address] ECRCL 21.75 ml/min Low 50-250 [facility] Comment on above: Performed By: #### L 100.0100, L503.6005, L500.4050 ####[facility] [address] [place], [address] GAP 14 Normal 5-15 [facility] Comment on above: Performed By: #### L 100.0100, L503.6005, L500.4050 ####[facility] [address] [place], [address] GFR/1.73 sq M.predicted among non-blacks MDRD (S/P/Bld) [Vol rate/Area] 33 mL/min/{1.73_m2} Low >60 [facility] Comment on above: Result Comment: mL/m in/1.73m2 CKD-EPI Creatinine Equation (2020) Performed By: #### L 100.0100, L503.6005, L500.4050 ####[facility] [address] [place], [address] Globulin (S) [Mass/Vol] 3.1 g/dL Normal 2.2-4.2 [facility] Comment on above: Performed By: #### L 100.0100, L503.6005, L500.4050 ####[facility] [address] [place], [address] Glucose [Mass/Vol] 111 mg/dL High 70-99 [facility] Comment on above: Performed By: #### L 100.0100, L503.6005, L500.4050 ####[facility] [address] [place], [address] Potassium [Moles/Vol] 4.3 mmol/L Normal 3.3-5.1 [facility] Comment on above: Performed By: #### L 100.0100, L503.6005, L500.4050 ####[facility] [address] [place], [address] Sodium [Moles/Vol] 130 mmol/L Low 133-145 [facility] Comment on above: Performed By: #### L 100.0100, L503.6005, L500.4050 ####[facility] [address] [place], [address] T PROT 7.2 g/dL Normal 5.9-8.4 [facility] Comment on above: Performed By: #### L 100.0100, L503.6005, L500.4050 ####[facility] [address] [place], [address] Urea nitrogen [Mass/Vol] 29 mg/dL High 4-19 [facility] Comment on above: Performed By: #### L 100.0100, L503.6005, L500.4050 ####[facility] [address] [place], [address] Albumin [Mass/Vol] 4.7 g/dL Normal 3.4-4.8 [facility] Comment on above: Performed By: #### L 500.4050, L501.2450, L100.0100 #### [facility] [address] [place], [address] Albumin/Globulin [Mass ratio] 1.4 {ratio} Normal 0.9-2.4 [facility] Comment on above: Performed By: #### L 500.4050, L501.2450, L100.0100 #### [facility] [address] [place], [address] ALK PHOS 72 U/L Normal 35-104 [facility] Comment on above: Performed By: #### L 500.4050, L501.2450, L100.0100 #### [facility] [address] [place], [address] ALT [Catalytic activity/Vol] 22 U/L Normal <=34 [facility] Comment on above: Performed By: #### L 500.4050, L501.2450, L100.0100 #### [facility] [address] [place], [address] AST [Catalytic activity/Vol] 41 U/L High <=31 [facility] Comment on above: Result Comment: Hemo lysis present, Results??could be affected. ?? Performed By: #### L 500.4050, L501.2450, L100.0100 #### [facility] [address] [place], [address] Bilirubin [Mass/Vol] 0.85 mg/dL Normal 0.00-1.30 [facility] Comment on above: Performed By: #### L 500.4050, L501.2450, L100.0100 #### [facility] [address] [place], [address] BUN/CRE 16.2 RATIO Normal 10-20 [facility] Comment on above: Performed By: #### L 500.4050, L501.2450, L100.0100 #### [facility] [address] [place], [address] Calcium [Mass/Vol] 11.2 mg/dL High 7.6-11.0 [facility] Comment on above: Performed By: #### L 500.4050, L501.2450, L100.0100 #### [facility] [address] [place], [address] Chloride [Moles/Vol] 90 mmol/L Low 98-108 [facility] Comment on above: Performed By: #### L 500.4050, L501.2450, L100.0100 #### [facility] [address] [place], [address] CO2 [Moles/Vol] 27.5 mmol/L Normal 21.0-32.0 [facility] Comment on above: Performed By: #### L 500.4050, L501.2450, L100.0100 #### [facility] [address] [place], [address] Creatinine [Mass/Vol] 1.70 mg/dL High 0.70-1.20 [facility] Comment on above: Performed By: #### L 500.4050, L501.2450, L100.0100 #### [facility] [address] [place], [address] ECRCL 19.83 ml/min Low 50-250 [facility] Comment on above: Performed By: #### L 500.4050, L501.2450, L100.0100 #### [facility] [address] [place], [address] GAP 14 Normal 5-15 [facility] Comment on above: Performed By: #### L 500.4050, L501.2450, L100.0100 #### [facility] [address] [place], [address] GFR/1.73 sq M.predicted among non-blacks MDRD (S/P/Bld) [Vol rate/Area] 30 mL/min/{1.73_m2} Low >60 [facility] Comment on above: Result Comment: mL/m in/1.73m2 CKD-EPI Creatinine Equation (2020) Performed By: #### L 500.4050, L501.2450, L100.0100 #### [facility] [address] [place], [address] Globulin (S) [Mass/Vol] 3.4 g/dL Normal 2.2-4.2 [facility] Comment on above: Performed By: #### L 500.4050, L501.2450, L100.0100 #### [facility] [address] [place], [address] Glucose [Mass/Vol] 118 mg/dL High 70-99 [facility] Comment on above: Performed By: #### L 500.4050, L501.2450, L100.0100 #### [facility] [address] [place], [address] Potassium [Moles/Vol] 4.7 mmol/L Normal 3.3-5.1 [facility] Comment on above: Result Comment: Hemo lysis present, Results??could be affected. ?? Performed By: #### L 500.4050, L501.2450, L100.0100 #### [facility] [address] [place], [address] Sodium [Moles/Vol] 132 mmol/L Low 133-145 [facility] Comment on above: Performed By: #### L 500.4050, L501.2450, L100.0100 #### [facility] [address] [place], [address] T PROT 8.1 g/dL Normal 5.9-8.4 [facility] Comment on above: Performed By: #### L 500.4050, L501.2450, L100.0100 #### [facility] [address] [place], [address] Urea nitrogen [Mass/Vol] 28 mg/dL High 4-19 [facility] Comment on above: Performed By: #### L 500.4050, L501.2450, L100.0100 #### [facility] [address] [place], [address] Emergency Department Summary on 08-03-2024 Emergency Department Summary [facility] Medical Records Department [address] [place] [address] Emergency Department Summary 08/03/24 MR#: [id number] Acct: [id number] Name: MARY LI Rep #: [id number] : 1940 83 From: Marino Burgos MD PCP: Dr. Andria Steve, DO Status:REG ER Location: ED HPI History of Present Illness Chief Complaint: Abd Pain Detail of Chief Complaint: Abdominal pain, distention, nausea vomiting and constipation with no flatus Informant: patient Onset/Context/Timing Onset: Weeks (Has not had a bowel movement in greater than 1 week. No flatus x 24 hours) Context: Sudden Onset Timing: Continuous Quality: Abdominal distention and discomfort Location: GI Current Severity: Moderate Maximum Severity: Severe Worsened by: Nothing specific Relieved by: Nothing Associated Symptoms Associated Symptoms: Thirst, dry mouth and decreased urination Narrative Narrative: Patient is an 83-year-old woman. She is status post cholecystectomy, small bowel obstruction requiring surgery as well as a sigmoidectomy. She was admitted June of last year for partial small bowel obstruction. She is in the hospital for 5 days. She also reports dysuria. She denies hematuria since she is taking Pyridium/Azo. She denies fever, chills night sweats. She denies headache, visual, ocular auditory symptoms. She denies cardiac respiratory symptoms. She denies back or flank pain. Prior similar symptoms: Yes Recent Illness/Hospitalization: No PFSH [facility] Medical History (Updated 08/03/24 @ 20:[address] Marino Burgos MD) Hx of small bowel obstruction Cholesterolosis Acid reflux Sleep apnea Arthritis History of back problems Home Medications ???Medication ???Instructions ???Recorded ???Last Taken ???Type echinacea 400 mg capsule 400 mg PO DAILY PRN immunity 10/1510/18/18 History omega-3 fatty acids 1,000 mg 1,000 mg PO DAILY 10/15/18 9 History capsule multivitamin with minerals 1 ea PO DAILY 10/19/18 10/18/18 Hi story ondansetron HCl 4 mg tablet 4 mg PO DAILY PRN nausea and 08/0308/03/24 History vomiting sulfamethoxazole 400 1 tab PO QDAY 08/04/23 Unknown His tory mg-trimethoprim 80 mg tablet dicyclomine 20 mg tablet 20 mg PO TID #270 tabs 08/27/23 Un known Rx d-mannose 500 mg capsule (AZO 500 mg PO DAILY 08/03/24 Unknown H istory D-Mannose) famotidine 20 mg tablet (Acid 20 mg PO BID PRN stomach upset Unknown History Controller) fluticasone propionate 50 1 - 2 spray intranasal DAILY PRN 0 08/03/24 Unknown History mcg/actuation nasal allergy symptoms spray,suspension (Allergy Relief (fluticasone)) lorazepam 0.5 mg tablet 0.5 mg PO DAILY PRN anxiety 08/02/24 History melatonin 5 mg tablet 5 - 10 mg PO DAILY PRN sleep 08/03 Unknown History Allergy/AdvReac Type Severity Reaction Status Date / Time Iodinated Contrast Media Allergy Intermediate Hives Verified 08/03/24 14:52 (contrast dye - iodinated) iohexol Allergy Hives Verified 08/03/24 14:52 codeine AdvReac Nausea/Vom/ Verified 08/03/24 14:52 Diarrhea Family History Father Cancer prostate Brother Cancer brain Seizures Mother Colon cancer Surgical History History of colonoscopy ( 2019) Hx laparoscopic cholecystectomy History of open sigmoidectomy History of colonoscopy history excision colon polyps History of arthroscopy of left knee Social History household members: none Smoking Status: Never smoker alcohol intake: never substance use type: does not use ROS ROS ED Constitutional Constitutional ED: Denies chills, fever(s), subjective, sweats or weight loss Eyes Eyes: Denies blurry vision or change in vision ENT ENT ED: Denies ear pain or rhinorrhea Cardiovascular Cardiovascular: Denies chest pain, palpitations or racing heartbeat Respiratory/Chest Respiratory/Chest: Denies cough, dyspnea or dyspnea on exertion Gastrointestinal Gastrointestinal: Reports abdominal pain, constipation, nausea and vomiting; Denies diarrhea or melena Genitourinary Genitourinary ED: Denies dysuria, hematuria or urinary frequency Musculoskeletal Musculoskeletal: Denies arthralgias, back pain or myalgias Integumentary Denies abscess, Abrasions or rash Neurologic Neurologic: Denies headache(s), paresthesias or weakness Psychiatric Psychiatric: Denies anxiety or depression Endocrine Endocrinology: Denies cold intolerance or heat intolerance Hematologic/Lymphatic Hematologic/Lymphatic: Reports systems reviewed and no addt'l complaints, except as documented EXAM Physical Exam Const Vital Signs: 08/03/24 14:52 (more content not included)... Normal [facility] H AND P Exam - Hospitaliston 08-03-2024 H&P Exam - Hospitalist [facility] Medical Records Department [address] [place] [address] H P Exam - Hospitalist 08/03/242014 MR#: [id number] Acct: [id number] Name: MARY LI Rep #: [id number] : 1940 83 From: Tierra Humphreys MD PCP: Dr. Andria Steve, DO Status:REG ER Location: ED HPI - General General Date of Admission: 08/03/24 Date of Service: 08/03/24 Chief Complaint: Abdominal pain, N/V, distention, dysuria. HPI Narrative The patient is an 83 y/o F w/ PMHx: Allergic rhinitis, LIANNA, GERD, Hx SBO, Anxiety, Possible CKD stage III unclear subtype per GFR trending, prior appeared stage II who presents to the [facility] ED on 08/03/24 with history of onset abdominal pain with discomfort, distention, nausea and emesis with lack of flatus and recent issues with constipation noting that she has not had bowel movement in greater than 1 week and no flatus in the last 24 hours with decreased urine output, decreased oral intake and dehydrated sensation with also recent onset of dysuria with no fevers or chills but given not improving prompted ED evaluation. Currently she is rating her pain at 8 of 10 in severity. Notes it is more cramping, aching and intermittent sharp stabbing. She does note that it tends to wax and wane. She does report chronic issues with urinary tract infections on chronic antibiotic therapy prescribed per primary care physician. She does report she has been more stressed as she is recently and is attempting to sell her property as it is too much to take care of on her own. Workup in the ED included T98.4, heart rate 90, BP 132/85, respiratory rate 18, 98% on room air with most recent repeat vitals heart rate 72, BP 156/84, respiratory rate 16, 95% on room air, CBC with WBC 9.3, hemoglobin 12.9, MCV 90.3, platelet 232 without marked shift, CMP with sodium 130, chloride 89, BUN/creatinine 29/1.55, GFR 33, glucose 111, AST 34 otherwise unremarkable, lactic acid 1.5, urine turbid, specific raphe 1.020, protein 100, ketone 5, occult blood 50, positive nitrite, leukocyte Estrace 100, urine WBCs greater than 100 with 4+ urine bacteria, urine culture pending per ED, CT abdomen and pelvis with multiple dilated small bowel loops measuring up to 4.1 cm with transition point at the duodenal jejunal junction compatible with small bowel obstruction, 20 x 12 mm left interpolar region exophytic mildly enhancing lesion suspicious for renal cell carcinoma with recommended dedicated follow-up imaging. Most recent previously noted culture that was positive was 05/27/2016 with Klebsiella greater than 100,000 with resistance to ampicillin and insensitivity to nitrofurantoin otherwise pansensitive. In the ED patient ministered Zofran 4 mg IV x 1, Solu-Medrol 40 mg IV x 1, Benadryl 50 mg IV x 1, Rocephin 1 g IV x 1, 1 L normal saline. ED discussed case with Dr. Harris. In the ED NGT being placed. [facility] Medical History Hx of small bowel obstruction Cholesterolosis Acid reflux Sleep apnea Arthritis History of back problems Home Medications ???Medication ???Instructions ???Recorded ???Last Taken ???Type echinacea 400 mg capsule 400 mg PO DAILY PRN immunity 10/1510/18/18 History omega-3 fatty acids 1,000 mg 1,000 mg PO DAILY 10/15/18 9 History capsule multivitamin with minerals 1 ea PO DAILY 10/19/18 10/18/18 Hi story ondansetron HCl 4 mg tablet 4 mg PO DAILY PRN nausea and 08/0308/03/24 History vomiting sulfamethoxazole 400 1 tab PO QDAY 08/04/23 Unknown His tory mg-trimethoprim 80 mg tablet dicyclomine 20 mg tablet 20 mg PO TID #270 tabs 08/27/23 Un known Rx d-mannose 500 mg capsule (AZO 500 mg PO DAILY 08/03/24 Unknown H istory D-Mannose) famotidine 20 mg tablet (Acid 20 mg PO BID PRN stomach upset Unknown History Controller) fluticasone propionate 50 1 - 2 spray intranasal DAILY PRN 0 08/03/24 Unknown History mcg/actuation nasal allergy symptoms spray,suspension (Allergy Relief (fluticasone)) lorazepam 0.5 mg tablet 0.5 mg PO DAILY PRN anxiety 08/02/24 History melatonin 5 mg tablet 5 - 10 mg PO DAILY PRN sleep 08/03 Unknown History Allergy/AdvReac Type Severity Reaction Status Date / Time Iodinated Contrast Media Allergy Intermediate Hives Verified 08/03/24 14:52 (contrast dye - iodinated) iohexol Allergy Hives Verified 08/03/24 14:52 codeine AdvReac Nausea/Vom/ Verified 08/03/24 14:52 Diarrhea Family History Father Cancer prostate Brother Cancer brain Seizures Mother Colon cancer Surgical History History of colonoscopy ( 2019) Hx laparoscopic cholecystectomy History of open sigmoidectomy (more content not included)... Normal [facility] Lactic Acidon 08-03-2024 Lactate [Moles/Vol] 1.5 mmol/L Normal 0.0-2.0 [facility] Comment on above: Order Comment: Y Performed By: #### L 100.0100, L503.6005, L500.4050 ####[facility] [address] [place], [address] Lipaseon 08-03-2024 Lipase [Catalytic activity/Vol] 53 U/L Normal 13-75 [facility] Comment on above: Result Comment: Plea se note: LIPASE revised reference range effective 22. New Lipase methodology. Expected to produce lower values than the previous assay method. NEW Reference Range: 13 - 75 U/L Performed By: #### L 500.4050, L501.2450, L100.0100 #### [facility] [address] [place], [address] Urinalysis, Completeon 08-03 BACTERIA Normal None Seen [facility] Comment on above: Order Comment: CLEAN CATCH Result Comment: DUPL ICATE ORDER. SEE U40 FOR RESULTS Performed By: #### L 400.0001 #### [facility] [address] [place], [address] BILIRUBIN URINE Normal Negative [facility] Comment on above: Order Comment: CLEAN CATCH Result Comment: DUPL ICATE ORDER. SEE U40 FOR RESULTS Performed By: #### L 400.0001 #### [facility] [address] [place], [address] Clarity (U) Normal Clear [facility] Comment on above: Order Comment: CLEAN CATCH Result Comment: DUPL ICATE ORDER. SEE U40 FOR RESULTS Performed By: #### L 400.0001 #### [facility] [address] [place], [address] Color (U) Normal Yellow [facility] Comment on above: Order Comment: CLEAN CATCH Result Comment: DUPL ICATE ORDER. SEE U40 FOR RESULTS Performed By: #### L 400.0001 #### [facility] [address] [place], [address] EPI,SQUAMOUS Normal 5-10 [facility] Comment on above: Order Comment: CLEAN CATCH Result Comment: DUPL ICATE ORDER. SEE U40 FOR RESULTS Performed By: #### L 400.0001 #### [facility] [address] [place], [address] GLUCOSE, UR Normal Normal [facility] Comment on above: Order Comment: CLEAN CATCH Result Comment: DUPL ICATE ORDER. SEE U40 FOR RESULTS Performed By: #### L 400.0001 #### [facility] [address] [place], [address] KETONE UR Normal Negative [facility] Comment on above: Order Comment: CLEAN CATCH Result Comment: DUPL ICATE ORDER. SEE U40 FOR RESULTS Performed By: #### L 400.0001 #### [facility] [address] [place], [address] LEUK ESTERASE Normal Negative [facility] Comment on above: Order Comment: CLEAN CATCH Result Comment: DUPL ICATE ORDER. SEE U40 FOR RESULTS Performed By: #### L 400.0001 #### [facility] [address] [place], [address] Mucus Ql (Urine sed) Normal [facility] Comment on above: Order Comment: CLEAN CATCH Result Comment: DUPL ICATE ORDER. SEE U40 FOR RESULTS Performed By: #### L 400.0001 #### [facility] [address] [place], [address] Nitrite Ql (U) Normal Negative [facility] Comment on above: Order Comment: CLEAN CATCH Result Comment: DUPL ICATE ORDER. SEE U40 FOR RESULTS Performed By: #### L 400.0001 #### [facility] [address] [place], [address] OCCULT BLOOD-UR Normal Negative [facility] Comment on above: Order Comment: CLEAN CATCH Result Comment: DUPL ICATE ORDER. SEE U40 FOR RESULTS Performed By: #### L 400.0001 #### [facility] [address] [place], [address] pH UR Normal 5.0 - 8.0 [facility] Comment on above: Order Comment: CLEAN CATCH Result Comment: DUPL ICATE ORDER. SEE U40 FOR RESULTS Performed By: #### L 400.0001 #### [facility] [address] [place], [address] PROT DIPSTX Normal Negative [facility] Comment on above: Order Comment: CLEAN CATCH Result Comment: DUPL ICATE ORDER. SEE U40 FOR RESULTS Performed By: #### L 400.0001 #### [facility] [address] [place], [address] RBC Normal 0-5 [facility] Comment on above: Order Comment: CLEAN CATCH Result Comment: DUPL ICATE ORDER. SEE U40 FOR RESULTS Performed By: #### L 400.0001 #### [facility] [address] [place], [address] SP.GR. DIPSTX Normal 1.002-1.03 0 [facility] Comment on above: Order Comment: CLEAN CATCH Result Comment: DUPL ICATE ORDER. SEE U40 FOR RESULTS Performed By: #### L 400.0001 #### [facility] [address] [place], [address] UR Preservative Normal [facility] Comment on above: Order Comment: CLEAN CATCH Result Comment: DUPL ICATE ORDER. SEE U40 FOR RESULTS Performed By: #### L 400.0001 #### [facility] [address] [place], [address] UROBILI Normal Normal [facility] Comment on above: Order Comment: CLEAN CATCH Result Comment: DUPL ICATE ORDER. SEE U40 FOR RESULTS Performed By: #### L 400.0001 #### [facility] [address] [place], [address] WBC Normal 0-5 [facility] Comment on above: Order Comment: CLEAN CATCH Result Comment: DUPL ICATE ORDER. SEE U40 FOR RESULTS Performed By: #### L 400.0001 #### [facility] [address] [place], [address] BACTERIA 4+ /hpf Normal None Seen [facility] Comment on above: Order Comment: CLEAN CATCH Performed By: #### L 400.0001 ####[facility] [address] [place], [address] WBC >100 SEEN Normal 0-5 [facility] Comment on above: Order Comment: CLEAN CATCH Result Comment: Micr oscopic field is filled. Other elements may be obscured. Performed By: #### L 400.0001 ####[facility] [address] [place], [address] EPI,SQUAMOUS 0 SEEN Normal 5-10 [facility] Comment on above: Order Comment: CLEAN CATCH Performed By: #### L 400.0001 ####[facility] [address] [place], [address] Mucus Ql (Urine sed) 0 SEEN Normal [facility] Comment on above: Order Comment: CLEAN CATCH Performed By: #### L 400.0001 ####[facility] [address] [place], [address] RBC 0 SEEN Normal 0-5 [facility] Comment on above: Order Comment: CLEAN CATCH Performed By: #### L 400.0001 ####[facility] [address] [place], [address] 36on 05-14-2024 36 Last ov- 02/26/24 Next ov-05/27/24 Normal [facility] Office Visiton 02-26-2024 Follow-up visit [id number] Mary Li 1940 F Date Provider Department Center 02/26/2024 [id number] N[place]ES [facility] None No family history on file Level of Service:40848 MI OFFICE/OUTPATIENT NEW MODERATE MDM 45 MINUTES Reason for Visit and Comments: New Patient [542] Numbness [75] Normal [facility] Progress Noteon 02-26-2024 Progress Note [facility] [address] [facility] [address] [facility] [address] Dept: [phone] Dept Loc: [phone] Tadeo Napoles MD Thank you for your kind request for a neurological consultation on this patient. CHIEF COMPLAINT: Chief Complaint Patient presents with New Patient Numbness HISTORY OF PRESENT ILLNESS: The patient is a 83 y.o. person who presents with numbness and burning in her feet and legs. She is having sleep related leg cramps. She is unsteady if she gets out of bed and that makes her unsteady. She reports that it got worse after she had bowel obstruction in June. She has burning and numbness in tops and bottoms of the feet. They are worse at night. They are worse if she is seated or lying. She has to get up and move around at night. She awakens jerking her limbs at night. She reports that she is having numbness in her hands and now she is wearting wrst splints at night. It will be worse if she is gripping a steering wheel. It is involving the entire hand and sometimes refers to the elbows. She lost a lot of weight after her bowel obstruction. Past Medical History: has a past medical history of Blood vessel injury, Broken wrist (2001), Gallbladder attack (2018), and Vitreous degeneration of left eye. Past Surgical History: has a past surgical history that includes Colonoscopy w/ polypectomy (1992); Knee surgery (1996); Cataract extraction (Left, 1998); and Cataract extraction (Right, 1998). Medications: Current Outpatient Medications: Artificial Tear Ointment (DRY EYES OP), Administer into affected eye(s) as needed., Disp: , Rfl: dicyclomine (Bentyl) 20 MG tablet, Take 10 mg by mouth every 8 hours as needed., Disp: , Rfl: famotidine (Pepcid) 20 MG tablet, Take 20 mg by mouth twice a day., Disp: , Rfl: LORazepam (Ativan) 1 MG tablet, Take 1 mg by mouth every 6 hours as needed., Disp: , Rfl: Melatonin 1 MG capsule, Take by mouth., Disp: , Rfl: ondansetron (Zofran) 4 MG tablet, Take 8 mg by mouth every 8 hours as needed., Disp: , Rfl: Vitamins-Lipotropics (Lipotriad) tablet, Take 1 capsule by mouth daily., Disp: , Rfl: rOPINIRole (Requip) 0.5 MG tablet, Take 1 tablet (0.5 mg) by mouth Nightly., Disp: 90 tablet, Rfl: 0 Allergies: Seasonal Social History: Social History Socioeconomic History Marital status: Spouse name: Not on file Number of children: Not on file Years of education: Not on file Highest education level: Not on file Occupational History Not on file Tobacco Use Smoking status: Never Smokeless tobacco: Never Substance and Sexual Activity Alcohol use: Not Currently Alcohol/week: 2.0 standard drinks of alcohol Types: 2 Glasses of wine per week Comment: Once or twice a year Drug use: Never Sexual activity: Yes Other Topics Concern Not on file Social History Narrative Not on file Social Drivers of Health Financial Resource Strain: Low Risk (06/17/2023) Received from [facility] Overall Financial Resource Strain (CARDIA) Difficulty of Paying Living Expenses: Not hard at all Food Insecurity: No Food Insecurity (06/17/2023) Received from [facility] Hunger Vital Sign Worried About Running Out of Food in the Last Year: Never true Ran Out of Food in the Last Year: Never true Transportation Needs: No Transportation Needs (06/17/2023) Received from [facility] PRAPARE - Transportation Lack of Transportation (Medical): No Lack of Transportation (Non-Medical): No Physical Activity: Not on file Stress: Not on file Social Connections: Not on file Intimate Partner Violence: Not on file Housing Stability: Not on file Family History: No family history on file. REVIEW OF SYSTEMS: Review of Systems Constitutional: Negative for appetite change, chills, diaphoresis, fever and unexpected weight change. HENT: Negative for dental problem and mouth sores. Eyes: Negative for discharge and itching. Respiratory: Negative for chest tightness. Cardiovascular: Negative for chest pain and leg swelling. Gastrointestinal: Negative for rectal pain and vomiting. Endocrine: Negative for polydipsia, polyphagia and polyuria. Genitourinary: Negative for decreased urine volume, flank pain and genital sores. Musculoskeletal: Negative for arthralgias. Skin: Negative for color change. Allergic/Immunologic: Negative for food allergies and immunocompromised state. Neurological: Positive for numbness. Hematological: Negative for adenopathy. Does not bruise/bleed easily. Psychiatric/Behavioral: Negative for agitation, behavioral problems, decreased concentration, sleep disturbance and suicidal ideas. PHYSICAL EXAM: Vitals: BP (S) (!) 179/97 (BP Location: Left arm, Patient Position: Sitting, BP Cuff Size: Adult) Pulse 80 Ht 5' 5 (1.651 m) Wt 129 lb 12.8 oz (58.9 kg) BMI 21.60 kg/m? General Appearance: Patient (more content not included)... Normal [facility] Basic metabolic 2000 panelon 06-19-2023 Anion gap [Moles/Vol] 9 mmol/L Normal 9-18 [facility] Comment on above: Order Comment: Speci men Type: BLOOD SPECIMENOrdering Facility: [facility] Address: [address] [place] [address] Performed By: #### 2 4321-2 ####[facility] [id number] [place] [address] [place] Calcium [Mass/Vol] 8.8 mg/dL Normal 8.5-10.2 [facility] Comment on above: Order Comment: Speci men Type: BLOOD SPECIMENOrdering Facility: [facility] Address: [address] [place] [address] Performed By: #### 2 4321-2 ####[facility]ORY[facility] [id number] [place] [address] [place] Chloride [Moles/Vol] 104 mmol/L Normal 97-105 [facility] Comment on above: Order Comment: Speci men Type: BLOOD SPECIMENOrdering Facility: [facility] Address: [address] [place] [address] Performed By: #### 2 4321-2 ####[facility] [id number] [place] [address] [place] CO2 [Moles/Vol] 26 mmol/L Normal 22-30 [facility] Comment on above: Order Comment: Speci men Type: BLOOD SPECIMENOrdering Facility: [facility] Address: [address] [place] [address] Performed By: #### 2 4321-2 ####[facility] [id number] [address] STATES OF [facility] Creatinine [Mass/Vol] 0.74 mg/dL Normal 0.58-0.96 [facility] Comment on above: Order Comment: Speci men Type: BLOOD SPECIMENOrdering Facility: [facility] Address: [address] [place] [address] Performed By: #### 2 4321-2 ####[facility]ORY[facility] [id number] [address] Creatinine and Glomerular filtration rate.predicted panel (S/P/Bld) 81 mL/min/1.73m??? Normal >=60 [facility] Comment on above: Order Comment: Wilmani men Type: BLOOD SPECIMENOrdering Facility: [facility] Address: [address] [place] [address] Result Comment: Adalgisa mated Glomerular Filtration Rate (eGFR) is calculated using the 2020 CKD-EPI creatinine equation. This equation utilizes serum creatinine, sex, and age as parameters. The creatinine assay has traceable calibration to isotope dilution-mass spectrometry. Refer to KDIGO guidelines for clinical interpretation. In patients with unstable renal function, e.g. those with acute kidney injury, the eGFR may not accurately reflect actual GFR. Performed By: #### 2 4321-2 ####[facility] [id number] [address] [place] Glucose [Mass/Vol] 97 mg/dL Normal 74-99 [facility] Comment on above: Order Comment: Speci men Type: BLOOD SPECIMENOrdering Facility: [facility] Address: [address] [place] [address] Result Comment: The [place] [employer] (ADA) provides guidance for cutoff values for fasting glucose and random glucose. The ADA defines fasting as no caloric intake for at least 8 hours. Fasting plasma glucose results between 100 to 125 mg/dL indicate increased risk for diabetes (prediabetes). Fasting plasma glucose results greater than or equal to 126 mg/dL meet the criteria for diagnosis of diabetes. In the absence of unequivocal hyperglycemia, results should be confirmed by repeat testing. In a patient with classic symptoms of hyperglycemia or hyperglycemic crisis, random plasma glucose results greater than or equal to 200 mg/dL meet the criteria for diagnosis of diabetes. Reference: Standards of Medical Care in Diabetes 2016, [place] [employer]. Diabetes Care. 2016.39(Suppl 1). Performed By: #### 2 4321-2 ####[facility]ORYCLIA [id number] [place] [address] [place] Potassium [Moles/Vol] 4.0 mmol/L Normal 3.7-5.1 [facility] Comment on above: Order Comment: Wilmani men Type: BLOOD SPECIMENOrdering Facility: [facility] Address: [address] [place] [address] Performed By: #### 2 4321-2 ####[facility]ORYCLIA [id number] [place] [address] [place] Sodium [Moles/Vol] 139 mmol/L Normal 136-144 [facility] Comment on above: Order Comment: Speci men Type: BLOOD SPECIMENOrdering Facility: [facility] Address: [address] [place] [address] Performed By: #### 2 1-2 ####[facility]ORYCLIA [id number] [place] [address] [place] Urea nitrogen [Mass/Vol] 9 mg/dL Normal 7-21 [facility] Comment on above: Order Comment: Wilmani men Type: BLOOD SPECIMENOrdering Facility: [facility] Address: [address] [place] [address] Performed By: #### 2 4321-2 ####[facility]ORATORYCLIA [id number] [place] [address] [facility] [place] CASE MANAGEMon 06-19-2023 CASE MANAGEM HNO ID: [id number] Author: EVONNE CHANDLER RN Service: ? Author Type: Registered Nurse Type: Care Mgt Progress Note Filed: 06/19/2023 11:31 Note Text: CARE MANAGEMENT DISCHARGE NOTE SERVICE DATE: June 19, 2023 SERVICE TIME: 11:30 AM Admission Date: 06/16/2023 LOS: 3 days Discharge Arrangement Discharge Arrangement: Home with Self Care Caregiver Assessment Caregiver is ready, willing and able to meet the patient's needs as recommended by the inter-professional team: No Transportation Arrangements Transportation Arrangements: Car Date of Trip: 06/19/23 Destination: Home Handoff Communication: Handoff to: Primary Care Physician Primary Care Physician Name/Phone: Andria Steve, do - [phone] Additional Information: Orders received for patient to discharge home. No skilled needs noted. Patient agreeable to discharge plan. Family to transport home. Bedside RN updated. Discharge Time Out Yes Bedside RN present No Does pt have transport home? Yes Did pt use bedside pharmacy? No SIGNATURE: Evonne Chandler RN PATIENT NAME: Mary Laura Li DATE: June 19, 2023 TIME: 11:30 AM CONTACT #: [phone] [facility] CASE MANAGEM HNO ID: [id number] Author: EVONNE CHANDLER RN Service: ? Author Type: Registered Nurse Type: Care Mgt Progress Note Filed: 06/19/2023 11:28 Note Text: CARE MANAGEMENT PROGRESS NOTE SERVICE DATE: 06/19/2023 SERVICE TIME: 11:28 AM LOS: 3 days IMM Follow Up Copy Given: Yes Copy given to:: Patient Method: In Person SIGNATURE: Evonne Chandler RN PATIENT NAME: Mary Li DATE: June 19, 2023 TIME: 11:28 AM PAGER/CONTACT #: [phone] [facility] CNDSon 06-19-2023 CNDS HNO ID: [id number] Author: TYRELL FINK MD Service: General Surgery Author Type: Physician Customer Energy Specialist Type: Discharge Summary Filed: 06/22/2023 15:38 Note Text: Attestation signed by Tyrell Fink MD at 06/22/2023 3:38 PM I agree Tyrell Fink MD DISCHARGE SUMMARY PATIENT NAME: Mary Li Code Status: Not on file Highest Readmission Risk Score: 13 The 30 day readmissions risk score is derived from an internally validated risk model which evaluates patient level characteristics, utilization history, medication orders and lab results up until the day of discharge. Patients with a score of 40 or above are considered highest risk for readmission. Specific patient level drivers will be listed at the bottom of the summary. Admission Information Admission Information ADMIT DATE: 06/16/2023 DISCHARGE DATE: 06/19/2023 MY DOCTORS AND MEDICAL TEAM: My Main Hospital Doctor: Tyrell Fink MD Primary Care Provider: Andria Steve DO, DO My Medical Team Members: Treatment Team: Attending Provider: Tyrell Fink MD MY CONDITION AT DISCHARGE: Stable REASON I WAS IN THE HOSPITAL: small bowel obstruction SUMMARY OF WHAT HAPPENED WHILE I WAS IN THE HOSPITAL: You came into the hospital with abdominal pain. Work up revealed a small bowel obstruction. An NG tube was placed. You were admitted and transferred to the nursing floor for continued observation and bowel rest. Repeat imaging showed persistent dilation of the stomach and the NG tube was maintained for 1 day. X-ray the following day showed resolution of obstruction and you were passing gas and having bowel movements. Diet was advanced as tolerated. At discharge you were tolerating your diet and pain was controlled. OTHER PROBLEMS/DIAGNOSIS: Principal Problem: SBO (small bowel obstruction) ([facility]) Resolved Problems: * No resolved hospital problems. * OPERATIONS PERFORMED WHILE IN THE HOSPITAL: None IMPORTANT TEST/PROCEDURES: No procedures performed TEST RESULTS NOT AVAILABLE AT THIS TIME: No pending results Discharge Disposition Discharge Disposition: Home With Self Care Activity When You Leave the Hospital May bathe and shower May use stairs No driving for: While on narcotic pain medication No prolonged bedrest, longer than 8 hours in a 24 hour period No walking restrictions Resume pre-hospital activity Diet Instructions Soft Foods See additional information For Pain When You Leave the Hospital Use acetaminophen (Tylenol) as recommended on the bottle Use ibuprofen (Motrin, Advil) as recommended on the bottle Call Your Doctor If You have lightheadedness, fainting, or confusion You have pain and swelling in your legs, especially if it is only on one side and not the other You have persistent nausea/vomiting over 24 hours Your temperature is greater than 101F Follow Up Appointments Follow-Up Appointment When: In 2 weeks Federico Jade MD [phone] [facility] [address] PCP Requested Referral Additional Provider to Provider Information: Small bowel obstruction; conservative management Transitions of Care Critical Issues: none LABS AND PROCEDURES PENDING AT DISCHARGE: No pending results. FOLLOW-UP APPOINTMENTS ALREADY SCHEDULED WITH A [facility] PROVIDER: Future Appointments Date Time Provider Department Center 07/08/2023 1:00 PM Federico Jade MD [facility] ALLERGIES Allergen Reactions Codeine Mental Status Change Red Dye Hives DISCHARGE MEDICATION: Medication List START taking these medications docusate 10 mg/mL Liqd Commonly known as: COLACE Take 10 mL by mouth once daily. Start taking on: June 20, 2023 CONTINUE taking these medications BACTRIM 400-80 mg per tablet Generic drug: sulfamethoxazole-trimethopr im Cholecalciferol (Vitamin D3) 25 mcg (1,000 unit) Cap dicyclomine 20 mg tablet Commonly known as: BENTYL Multivitamin capsule omega-3 fatty acids 1,000 mg Cap promethazine 25 mg tablet Commonly known as: PHENERGAN Take 1 tablet by mouth every 6 hours as needed. vits A-C-E-B bthokl-lbe-ahscre 5,000 unit- 120 mg-60 unit Tber ZOFRAN 4 mg tablet Generic drug: ondansetron ZOLOFT 50 mg tablet Generic drug: sertraline Where to Get Your Medications You can get these medications from any pharmacy You don't need a prescription for these medications docusate 10 mg/mL Liqd Discharge Physical Exam: VITAL SIGNS: BP 120/93 Pulse 73 Temp 37.1 ?C (98.8 ?F) (Oral) Resp 18 Ht 165.1 cm (5' 5) Wt 65.4 kg (144 lb 2.9 oz) SpO2 95% BMI 23.99 kg/m? GENERAL: Alert, no distress, cooperative ABDOMEN: Abdomen soft, non-tender, BS normal, No masses or organomegaly The patient's risk for 30-day readmission is (more content not included)... [facility] NURSING PROGon 06-19-2023 NURSING PROG HNO ID: [id number] Author: TC VACA, LUCY Service: Nursing Author Type: Registered Nurse Type: Nursing Progress Note Filed: 06/19/2023 00:16 Note Text: Patient IV site was tender and had swelling, needed to be removed. I advised the patient a new IV would needed to be placed and patient stated she did not want one. Page was placed to telecommunications clerk APRNs. Mellisa Espinoza returned the page and was ok with removing IV since patient has been tolerating full liquid diet. She did advise a new IV may need to be placed tomorrow pending patient's clinical course. [facility] ALLIED HEALTHon 06-18-2023 ALLIED HEALTH HNO ID: [id number] Author: MARANDA MOTA RT(Monae) Service: ? Author Type: Hay Rake Operator Type: Allied Health Filed: 06/18/2023 09:36 Note Text: Radiology Service Progress Note PATIENT NAME: Mary Li DATE OF SERVICE: June 18, 2023 TIME: 9:35 AM PATIENT IDENTITY VERIFICATION COMPLETED USING TWO (2) IDENTIFIERS: Name and Date of confirmed by patient verbally. FALL SCREENING: Has the patient had 2 falls in the last year or 1 fall with injury or currently using an Ambulatory Assistive Device (Walker, Cane, Wheelchair, Crutches, etc.)? Inpatient: Screened on floor PATIENT GENDER DATA: Female. status: : No status: NO. PATIENT RELEVANT IMPLANT DATA REVIEWED: Not Applicable PATIENT PRESENTS WITH AN IMPLANTABLE OR ATTACHED METABOLIC SPECIALIST: No RADIOLOGY DEPARTMENT: General X-ray: Exam(s) Completed: Abdomen X-Ray: Abdomen with Upright PERIPHERAL IV DATA: Not applicable SIGNED BY: Maranda RT Thierry(R) June 18, 2023 9:35 AM [facility] CONSULT PROGon 06-18-2023 CONSULT PROG HNO ID: [id number] Author: TYRELL FINK MD Service: General Surgery Author Type: Physician Type: Consult Progress Note Filed: 06/22/2023 15:41 Note Text: SERVICE CONSULT PROGRESS NOTE SERVICE DATE: 06/18/2023 SERVICE TIME: 12:46 PM Subjective INTERVAL HPI: Patient states that she is now passing a lot of flatus and has had some bowel movements. She is feeling much better. She was placed on a clear liquid diet earlier today and she seems to be tolerating this very well. No further nausea or vomiting or abdominal pain Current Facility-Administered Medications Medication Dose Route Frequency sertraline 50 mg tab(s) (ZOLOFT) 50 mg ORAL DAILY sulfamethoxazole-trimethopr im 400-80 mg 1 tablet (BACTRIM) 1 tablet ORAL DAILY heparin 5,000 Units injection 5,000 Units SUBCUTANEOUS q 12 H NaCl 0.9% iv flush bag 20 mL INTRAVENOUS PRN dextrose 5% in NaCl 0.9% iv infusion 75 mL/hr INTRAVENOUS CONTINUOUS ondansetron orally disintegrating 4 mg tab(s) (ZOFRAN ODT) 4 mg ORAL q 6 H PRN Or ondansetron (PF) 4 mg injection (ZOFRAN) 4 mg INTRAVENOUS q 6 H PRN acetaminophen 325 mg tab(s) (TYLENOL) 325 mg ORAL q 6 H PRN HYDROmorphone 0.5 mg injection (DILAUDID) 0.5 mg INTRAVENOUS q 4 H PRN zolpidem 2.5 mg tab(s) (AMBIEN) 2.5 mg ORAL AT BEDTIME PRN phenol 1 Edison (CHLORASEPTIC) 1 Edison MUCOUS MEMBRANE (TOPICAL MOUTH AND THROAT) q 2 H PRN docusate sodium 100 mg cap(s) (COLACE) 100 mg ORAL DAILY Objective PHYSICAL EXAM: Physical Exam Performed: GENERAL: Alert, no distress, cooperative ABDOMEN: Abdomen soft, non-tender, BS normal, No masses or organomegaly BP 144/68 Pulse 73 Temp (Src) 98.2 (Oral) Resp 16 Ht 5' 5 (1.65m) Wt 144 lb 2.9 oz (65.4kg) SpO2 95% BMI 23.99 kg/(m2). O2 Therapy: Room Air DATA: Diagnostic tests reviewed for today's visit: Most recent labs and imaging results. Impression/Recommendations 82-year-old female with a resolving small bowel obstruction likely secondary to adhesions from prior surgeries. Will advance diet to a full liquid diet. Encouraged her to continue to Ambulate Will probably plan on discharge tomorrow if she continues to tolerate diet. X SBO probably related to adhesions Ruled In SBO probably related to adhesions Ruled Out Other, please SIGNATURE: Tyrell Fink MD PATIENT NAME: Mary Li DATE: June 18, 2023 TIME: 12:45 PM PAGER: [facility] XR ABD 2V SUPINE W UPR/DECUB /CTLon 06-18-2023 XR ABD 2V SUPINE W UPR/DECUB/CTL * * *Final Report* * * DATE OF EXAM: Jun 18 2023 10:00AM MDX [id number] - XR ABD 2V SUPINE W UPR/DECUB/CTL / PROCEDURE REASON: Ileus vs bowel obstruction * * * * Physician Interpretation * * * * XR ABD 2V SUPINE W UPR/DECUB/CTL HISTORY: Indication: Ileus vs bowel obstruction Ileus and bowel obstruction. Patient stated that she had a bowel movement TECHNIQUE: Views obtained: XR ABD 2V SUPINE W UPR/DECUB/CTL upright view Comparison: 06/17/2023. RESULT: Findings: Enteric tube is seen to pass below the left hemidiaphragm and the tip projects over the expected region of the stomach.. No abnormal calcifications are seen. There are large amount of fecal debris throughout the entire colon including the rectosigmoid area. Bowel gas pattern is nonspecific and unremarkable No bony abnormalities are seen .No free air is seen. IMPRESSION: 1. Large amount of fecal debris throughout the colon represent a fecal impaction 2. No free air Burner Technician: BLOSSOM Transcribe Date/Time: Jun 18 2023 10:05A Dictated by : JOYCE MARTINES DO This examination was interpreted and the report reviewed and electronically signed by: JOYCE MARTINES DO on Jun 18 2023 11:34AM EST [id number] [facility] ALLIED HEALTHon 06-17-2023 ALLIED HEALTH HNO ID: [id number] Author: TRINITY GALDAMEZ RT(R) Service: Radiology Author Type: Technologist Type: Allied Health Filed: 06/17/2023 08:46 Note Text: Radiology Service Progress Note PATIENT NAME: Mary Li DATE OF SERVICE: June 17, 2023 TIME: 8:45 AM PATIENT IDENTITY VERIFICATION COMPLETED USING TWO (2) IDENTIFIERS: Name and Date of confirmed by patient verbally. FALL SCREENING: Has the patient had 2 falls in the last year or 1 fall with injury or currently using an Ambulatory Assistive Device (Walker, Cane, Wheelchair, Crutches, etc.)? Inpatient: Screened on floor PATIENT GENDER DATA: Female. status: : No status: NO. PATIENT RELEVANT IMPLANT DATA REVIEWED: Not Applicable PATIENT PRESENTS WITH AN IMPLANTABLE OR ATTACHED METABOLIC SPECIALIST: No RADIOLOGY DEPARTMENT: General X-ray: Exam(s) Completed: Abdomen X-Ray: Abdomen PERIPHERAL IV DATA: Not applicable SIGNED BY: RT Mikey(R) June 17, 2023 8:45 AM [facility] Basic metabolic 2000 panelon 06-17-2023 Anion gap [Moles/Vol] 7 mmol/L Low 9-18 [facility] Comment on above: Order Comment: Speci men Type: BLOOD SPECIMENOrdering Facility: [facility] Address: [address] [place] [address] Performed By: #### 2 4321-2 ####[facility] LABORATORYCLIA [id number] [place] [address] [place] Calcium [Mass/Vol] 8.6 mg/dL Normal 8.5-10.2 [facility] Comment on above: Order Comment: Speci men Type: BLOOD SPECIMENOrdering Facility: [facility] Address: [address] [place] [address] Performed By: #### 2 4321-2 ####[facility] LABORATORYCLIA [id number] [place] [address] [place] Chloride [Moles/Vol] 97 mmol/L Normal 97-105 [facility] Comment on above: Order Comment: Speci men Type: BLOOD SPECIMENOrdering Facility: [facility] Address: [address] [place] [address] Performed By: #### 2 4321-2 ####[facility]ORATORYCLIA [id number] [place] [address] [place] CO2 [Moles/Vol] 28 mmol/L Normal 22-30 [facility] Comment on above: Order Comment: Speci men Type: BLOOD SPECIMENOrdering Facility: [facility] Address: [address] [place] [address] Performed By: #### 2 4321-2 ####[facility]ORATORYCLIA [id number] [address] [place] Creatinine [Mass/Vol] 0.86 mg/dL Normal 0.58-0.96 [facility] Comment on above: Order Comment: Wilmani men Type: BLOOD SPECIMENOrdering Facility: [facility] Address: [address] [place] [address] Performed By: #### 2 4321-2 ####[facility]ORATORYCLIA [id number] [address] Creatinine and Glomerular filtration rate.predicted panel (S/P/Bld) 68 mL/min/1.73m??? Normal >=60 [facility] Comment on above: Order Comment: Wilmani men Type: BLOOD SPECIMENOrdering Facility: [facility] Address: [address] [place] [address] Result Comment: Adalgisa mated Glomerular Filtration Rate (eGFR) is calculated using the 2020 CKD-EPI creatinine equation. This equation utilizes serum creatinine, sex, and age as parameters. The creatinine assay has traceable calibration to isotope dilution-mass spectrometry. Refer to KDIGO guidelines for clinical interpretation. In patients with unstable renal function, e.g. those with acute kidney injury, the eGFR may not accurately reflect actual GFR. Performed By: #### 2 4321-2 ####[facility]ORATORYCLIA [id number] [address] [place] Glucose [Mass/Vol] 116 mg/dL High 74-99 [facility] Comment on above: Order Comment: Speci men Type: BLOOD SPECIMENOrdering Facility: [facility] Address: [address] [place] [address] Result Comment: The [place] [employer] (ADA) provides guidance for cutoff values for fasting glucose and random glucose. The ADA defines fasting as no caloric intake for at least 8 hours. Fasting plasma glucose results between 100 to 125 mg/dL indicate increased risk for diabetes (prediabetes). Fasting plasma glucose results greater than or equal to 126 mg/dL meet the criteria for diagnosis of diabetes. In the absence of unequivocal hyperglycemia, results should be confirmed by repeat testing. In a patient with classic symptoms of hyperglycemia or hyperglycemic crisis, random plasma glucose results greater than or equal to 200 mg/dL meet the criteria for diagnosis of diabetes. Reference: Standards of Medical Care in Diabetes 2016, [place] [employer]. Diabetes Care. 2016.39(Suppl 1). Performed By: #### 2 4321-2 ####[facility]ORATORYCLIA [id number] [place] [address] [place] Potassium [Moles/Vol] 4.0 mmol/L Normal 3.7-5.1 [facility] Comment on above: Order Comment: Speci men Type: BLOOD SPECIMENOrdering Facility: [facility] Address: [address] [place] [address] Performed By: #### 2 4321-2 ####[facility] LABORATORYCLIA [id number] [address] STATES [facility] Sodium [Moles/Vol] 132 mmol/L Low 136-144 [facility] Comment on above: Order Comment: Speci men Type: BLOOD SPECIMENOrdering Facility: [facility] Address: [address] [place] [address] Performed By: #### 2 4321-2 ####[facility]ORATORYCLIA [id number] [address] [place] Urea nitrogen [Mass/Vol] 15 mg/dL Normal 7-21 [facility] Comment on above: Order Comment: Speci men Type: BLOOD SPECIMENOrdering Facility: [facility] Address: [address] [place] [address] Performed By: #### 2 4321-2 ####[facility]ORATORYCLIA [id number] [address] [place] CBC W Auto Differential pane l (Bld)on 06-17-2023 Basophils (Bld) [#/Vol] 10*3/uL Normal <0.11 [facility] Comment on above: Order Comment: Speci men Type: BLOOD SPECIMENOrdering Facility: [facility] Address: [address] [place] [address] Performed By: #### 5 7021-8 ####[facility]ORATORYCLIA [id number] [address] [place] Basophils/100 WBC (Bld) 0.2 % Normal [facility] Comment on above: Order Comment: Speci men Type: BLOOD SPECIMENOrdering Facility: [facility] Address: [address] [place] [address] Performed By: #### 5 7021-8 ####[facility]ORATORYCLIA [id number] [address] Differential cell count method Nom (Bld) Auto Normal [facility] Comment on above: Order Comment: Speci men Type: BLOOD SPECIMENOrdering Facility: [facility] Address: [address] [place] [address] Performed By: #### 5 7021-8 ####[facility]ORATORYCLIA [id number] [address] [place] Eosinophils (Bld) [#/Vol] 0.10 10*3/uL Normal <0.46 [facility] Comment on above: Order Comment: Speci men Type: BLOOD SPECIMENOrdering Facility: [facility] Address: [address] [place] [address] Performed By: #### 5 7021-8 ####[facility]ORATORYCLIA [id number] [address] Eosinophils/100 WBC (Bld) 1.6 % Normal [facility] Comment on above: Order Comment: Speci men Type: BLOOD SPECIMENOrdering Facility: [facility] Address: [address] [place] [address] Performed By: #### 5 7021-8 ####[facility]ORATORYCLIA [id number] [address] [place] Erythrocyte distribution width (RBC) [Ratio] 12.9 % Normal 11.5-15.0 [facility] Comment on above: Order Comment: Speci men Type: BLOOD SPECIMENOrdering Facility: [facility] Address: [address] [place] [address] Performed By: #### 5 7021-8 ####[facility]ORATORYCLIA [id number] [address] [place] Hematocrit (Bld) [Volume fraction] 37.3 % Normal 36.0-46.0 [facility] Comment on above: Order Comment: Speci men Type: BLOOD SPECIMENOrdering Facility: [facility] Address: [address] [place] [address] Performed By: #### 5 7021-8 ####[facility]ATORYCLIA [id number] [address] [place] Hemoglobin (Bld) [Mass/Vol] 12.1 g/dL Normal 11.5-15.5 [facility] Comment on above: Order Comment: Speci men Type: BLOOD SPECIMENOrdering Facility: [facility] Address: [address] [place] [address] Performed By: #### 5 7021-8 ####[facility]ORATORYCLIA [id number] [address] [place] Immature granulocytes (Bld) [#/Vol] 10*3/uL Normal <0.10 [facility] Comment on above: Order Comment: Speci men Type: BLOOD SPECIMENOrdering Facility: [facility] Address: [address] [place] [address] Performed By: #### 5 7021-8 ####[facility]ORATORYCLIA [id number] [address] [place] Immature granulocytes/100 WBC (Bld) 0.2 % Normal [facility] Comment on above: Order Comment: Speci men Type: BLOOD SPECIMENOrdering Facility: [facility] Address: [address] [place] [address] Performed By: #### 5 7021-8 ####[facility]ORATORYCLIA [id number] [address] Lymphocytes (Bld) [#/Vol] 1.25 10*3/uL Normal 1.00-4.00 [facility] Comment on above: Order Comment: Speci men Type: BLOOD SPECIMENOrdering Facility: [facility] Address: [address] [place] [address] Performed By: #### 5 7021-8 ####[facility]ATORYCLIA [id number] [address] Lymphocytes/100 WBC (Bld) 19.6 % Normal [facility] Comment on above: Order Comment: Speci men Type: BLOOD SPECIMENOrdering Facility: [facility] Address: [address] [place] [address] Performed By: #### 5 7021-8 ####[facility]ATORYCLIA [id number] [address] MCH (RBC) [Entitic mass] 29.5 pg Normal 26.0-34.0 [facility] Comment on above: Order Comment: Speci men Type: BLOOD SPECIMENOrdering Facility: [facility] Address: [address] [place] [address] Performed By: #### 5 7021-8 ####[facility]ORATORYCLIA [id number] [address] MCHC (RBC) [Mass/Vol] 32.4 g/dL Normal 30.5-36.0 [facility] Comment on above: Order Comment: Speci men Type: BLOOD SPECIMENOrdering Facility: [facility] Address: [address] [place] [address] Performed By: #### 5 7021-8 ####[facility]ATORYCLIA [id number] [address] MCV (RBC) [Entitic vol] 91.0 fL Normal 80.0-100.0 [facility] Comment on above: Order Comment: Speci men Type: BLOOD SPECIMENOrdering Facility: [facility] Address: [address] [place] [address] Performed By: #### 5 7021-8 ####[facility]ORATORYCLIA [id number] [place] [address] [place] Monocytes (Bld) [#/Vol] 0.62 10*3/uL Normal <0.87 [facility] Comment on above: Order Comment: Speci men Type: BLOOD SPECIMENOrdering Facility: [facility] Address: [address] [place] [address] Performed By: #### 5 7021-8 ####[facility]ORATORYCLIA [id number] [address] [place] [facility] Monocytes/100 WBC (Bld) 9.7 % Normal [facility] Comment on above: Order Comment: Speci men Type: BLOOD SPECIMENOrdering Facility: [facility] Address: [address] [place] [address] Performed By: #### 5 7021-8 ####[facility]ATORYCLIA [id number] [address] [place] Neutrophils (Bld) [#/Vol] 4.39 10*3/uL Normal 1.45-7.50 [facility] Comment on above: Order Comment: Speci men Type: BLOOD SPECIMENOrdering Facility: [facility] Address: [address] [place] [address] Performed By: #### 5 7021-8 ####[facility]ATORYCLIA [id number] [address] Neutrophils/100 WBC (Bld) 68.7 % Normal [facility] Comment on above: Order Comment: Speci men Type: BLOOD SPECIMENOrdering Facility: [facility] Address: [address] [place] [address] Performed By: #### 5 7021-8 ####[facility]ORATORYCLIA [id number] [place] [address] [place] Nucleated RBC (Bld) [#/Vol] 10*3/uL Normal <0.01 [facility] Comment on above: Order Comment: Speci men Type: BLOOD SPECIMENOrdering Facility: [facility] Address: [address] [place] [address] Performed By: #### 5 7021-8 ####[facility]ORATORYCLIA [id number] [place] [address] [place] Nucleated RBC/100 WBC (Bld) [Ratio] 0.0 /100 WBC Normal [facility] Comment on above: Order Comment: Speci men Type: BLOOD SPECIMENOrdering Facility: [facility] Address: [address] [place] [address] Performed By: #### 5 7021-8 ####[facility]ORATORYCLIA [id number] [place] [address] [place] Platelet mean volume (Bld) [Entitic vol] 9.6 fL Normal 9.0-12.7 [facility] Comment on above: Order Comment: Speci men Type: BLOOD SPECIMENOrdering Facility: [facility] Address: [address] [place] [address] Performed By: #### 5 7021-8 ####[facility]ORATORYCLIA [id number] [address] [place] Platelets (Bld) [#/Vol] 218 10*3/uL Normal 150-400 [facility] Comment on above: Order Comment: Speci men Type: BLOOD SPECIMENOrdering Facility: [facility] Address: [address] [place] [address] Performed By: #### 5 7021-8 ####[facility]ORATORYCLIA [id number] [address] [place] RBC (Bld) [#/Vol] 4.10 10*6/uL Normal 3.90-5.20 [facility] Comment on above: Order Comment: Speci men Type: BLOOD SPECIMENOrdering Facility: [facility] Address: [address] [place] [address] Performed By: #### 5 7021-8 ####[facility] LABORATORYCLIA [id number] [place] [address] [place] WBC (Bld) [#/Vol] 6.38 10*3/uL Normal 3.70-11.00 [facility] Comment on above: Order Comment: Speci men Type: BLOOD SPECIMENOrdering Facility: [facility] Address: [address] [place] [address] Performed By: #### 5 7021-8 ####[facility]ORATORYCLIA [id number] [place] [address] [facility] NUTRITIONon 06-17-2023 NUTRITION HNO ID: [id number] Author: ERIKA BAZZI RD Service: Nutrition Therapy Author Type: Registered Dietitian Type: Nutrition Filed: 06/17/2023 09:55 Note Text: NUTRITION THERAPY SCREEN NOTE SERVICE DATE: 06/17/2023 SERVICE TIME: 9:21 am Care Plan: Follow for diet advancement to goal Monitor and Evaluation: Meet greater than 75% of estimated needs Intake History: Nutrition Intake Prior to Admission: decreased appetite past two weeks per pt. Current Nutrition Intake: NPO Diet Orders (From admission, onward) Start Ordered 06/16/230 Diet NPO START NOW Question: NPO Restrictions Answer: EXCEPT MEDS 06/16/23 181 Anthropometrics: Height: 165.1 cm (5' 5) Weight: 65.4 kg (144 lb 2.9 oz) Usual Weight: 68.5 kg (150 lb 15.9 oz) Usual Weight Obtained From: Chart Review Weight change percentage over time: 4.6% weight loss x 7 months Weight Change: Not clinically signficant weight loss MNT Billing: $ Initial Assessment: 1-15 minutes SIGNATURE: Erika Bazzi RD PATIENT NAME: Mray Li DATE: June 17, 2023 TIME: 9:55 AM [facility] XR ABD 2V SUPINE W UPR/DECUB /CTLon 06-17-2023 XR ABD 2V SUPINE W UPR/DECUB/CTL * * *Final Report* * * DATE OF EXAM: Jun 17 2023 8:44AM MDX [id number] - XR ABD 2V SUPINE W UPR/DECUB/CTL / PROCEDURE REASON: Ileus vs bowel obstruction * * * * Physician Interpretation * * * * PROCEDURE: XR ABD 2V SUPINE W UPR/DECUB/CTL INDICATION: Small bowel obstruction TECHNIQUE: AP and upright/decubitus views COMPARISON: 06/16/2023 1515 hours FINDINGS: Enteric tube is present within the stomach. Air-fluid level is seen within the stomach. A few mildly dilated upper abdominal small bowel loops, mostly fluid-filled. Small amount of gas and stool within the colon. No pneumoperitoneum. IMPRESSION: Suspected small bowel obstruction, little changed. Consider NG tube suction as there is significant fluid within the stomach Burner Technician: BLOSSOM Transcribe Date/Time: Jun 17 2023 1:41P Dictated by : TADEO HAYNES MD This examination was interpreted and the report reviewed and electronically signed by: TADEO HAYNES MD on Jun 17 2023 1:43PM EST [id number] Normal [facility] HEALTHon 06-16-2023 ALLIED HEALTH HNO ID: [id number] Author: JACEK OLIVARES RT(R) Service: ? Author Type: Technologist Type: Allied Health Filed: 06/16/2023 15:32 Note Text: Radiology Service Progress Note PATIENT NAME: Mary Li DATE OF SERVICE: June 16, 2023 TIME: 3:32 PM PATIENT IDENTITY VERIFICATION COMPLETED USING TWO (2) IDENTIFIERS: Name and Date of confirmed by patient verbally. FALL SCREENING: Has the patient had 2 falls in the last year or 1 fall with injury or currently using an Ambulatory Assistive Device (Walker, Cane, Wheelchair, Crutches, etc.)? Emergency Room Patient: Screened in ED PATIENT GENDER DATA: Female. status: : No status: NO. PATIENT RELEVANT IMPLANT DATA REVIEWED: Not Applicable PATIENT PRESENTS WITH AN IMPLANTABLE OR ATTACHED METABOLIC SPECIALIST: No RADIOLOGY DEPARTMENT: General X-ray: Exam(s) Completed: Abdomen X-Ray: Abdomen PERIPHERAL IV DATA: Not applicable SIGNED BY: RT Anthony(R) June 16, 2023 3:32 PM Normal [facility] CBC W Auto Differential pane l (Bld)on 06-16-2023 Basophils (Bld) [#/Vol] 10*3/uL Normal <0.11 [facility] Comment on above: Order Comment: Speci men Type: BLOOD SPECIMEN [facility] Address: [address] [place] [address] Performed By: #### 5 7021-8 #### [facility] CLIA [id number] [address] [place] [address] [place] Basophils/100 WBC (Bld) 0.0 % Normal [facility] Comment on above: Order Comment: Speci men Type: BLOOD SPECIMEN [facility] Address: [address] [place] [address] Performed By: #### 5 7021-8 #### [facility] CLIA [id number] [address] [place] [address] [place] Differential cell count method Nom (Bld) Auto Normal [facility] Comment on above: Order Comment: Speci men Type: BLOOD SPECIMEN [facility] Address: [address] [place] [address] Performed By: #### 5 7021-8 #### [facility] CLIA [id number] [address] [place] [address] [place] Eosinophils (Bld) [#/Vol] 10*3/uL Normal <0.46 [facility] Comment on above: Order Comment: Speci men Type: BLOOD SPECIMEN [facility] Address: [address] [place] [address] Performed By: #### 5 7021-8 #### [facility] CLIA [id number] [address] [place] [id number] [place] Eosinophils/100 WBC (Bld) 0.2 % Normal [facility] Comment on above: Order Comment: Speci men Type: BLOOD SPECIMEN [facility] Address: [address] [place] [address] Performed By: #### 5 7021-8 #### [facility] CLIA [id number] [address] [place] [address] [place] Erythrocyte distribution width (RBC) [Ratio] 12.8 % Normal 11.5-15.0 [facility] Comment on above: Order Comment: Speci men Type: BLOOD SPECIMEN [facility] Address: [address] [place] [address] Performed By: #### 5 7021-8 #### [facility] CLIA [id number] [address] [place] [address] [facility] OF [place] Hematocrit (Bld) [Volume fraction] 42.1 % Normal 36.0-46.0 [facility] Comment on above: Order Comment: Speci men Type: BLOOD SPECIMEN [facility] Address: [address] [place] [address] Performed By: #### 5 7021-8 #### [facility] CLIA [id number] [address] [place] [address] [place] Hemoglobin (Bld) [Mass/Vol] 13.8 g/dL Normal 11.5-15.5 [facility] Comment on above: Order Comment: Speci men Type: BLOOD SPECIMEN [facility] Address: [address] [place] [address] Performed By: #### 5 7021-8 #### [facility] CLIA [id number] [address] [place] [address] [place] Immature granulocytes (Bld) [#/Vol] 10*3/uL Normal <0.10 [facility] Comment on above: Order Comment: Speci men Type: BLOOD SPECIMEN [facility] Address: [address] [place] [address] Performed By: #### 5 7021-8 #### [facility] CLIA [id number] [address] [place] [address] [place] Immature granulocytes/100 WBC (Bld) 0.1 % Normal [facility] Comment on above: Order Comment: Speci men Type: BLOOD SPECIMEN [facility] Address: [address] [place] [address] Performed By: #### 5 7021-8 #### [facility] CLIA [id number] [address] [place] [address] [place] Lymphocytes (Bld) [#/Vol] 0.92 10*3/uL Low 1.00-4.00 [facility] Comment on above: Order Comment: Speci men Type: BLOOD SPECIMEN [facility] Address: [address] [place] [address] Performed By: #### 5 7021-8 #### [facility] CLIA [id number] [address] Lymphocytes/100 WBC (Bld) 10.7 % Normal [facility] Comment on above: Order Comment: Speci men Type: BLOOD SPECIMEN [facility] Address: [address] [place] [address] Performed By: #### 5 7021-8 #### [facility] CLIA [id number] [address] [place] MCH (RBC) [Entitic mass] 30.5 pg Normal 26.0-34.0 [facility] Comment on above: Order Comment: Speci men Type: BLOOD SPECIMEN [facility] Address: [address] [place] [address] Performed By: #### 5 7021-8 #### [facility] CLIA [id number] [address] [place] [address] [place] [facility] MCHC (RBC) [Mass/Vol] 32.8 g/dL Normal 30.5-36.0 [facility] Comment on above: Order Comment: Speci men Type: BLOOD SPECIMEN [facility] Address: [address] [place] [address] Performed By: #### 5 7021-8 #### [facility] CLIA [id number] [address] [place] MCV (RBC) [Entitic vol] 93.1 fL Normal 80.0-100.0 [facility] Comment on above: Order Comment: Speci men Type: BLOOD SPECIMEN [facility] Address: [address] [place] [address] Performed By: #### 5 7021-8 #### [facility] CLIA [id number] [address] [place] Monocytes (Bld) [#/Vol] 0.58 10*3/uL Normal <0.87 [facility] Comment on above: Order Comment: Speci men Type: BLOOD SPECIMEN [facility] Address: [address] [place] [address] Performed By: #### 5 7021-8 #### [facility] CLIA [id number] [address] [place] [address] [place] Monocytes/100 WBC (Bld) 6.8 % Normal [facility] Comment on above: Order Comment: Speci men Type: BLOOD SPECIMEN [facility] Address: [address] [place] [address] Performed By: #### 5 7021-8 #### [facility] CLIA [id number] [address] [place] [address] [place] Neutrophils (Bld) [#/Vol] 7.05 10*3/uL Normal 1.45-7.50 [facility] Comment on above: Order Comment: Speci men Type: BLOOD SPECIMEN [facility] Address: [address] [place] [address] Performed By: #### 5 7021-8 #### [facility] CLIA [id number] [address] [place] [address] [place] Neutrophils/100 WBC (Bld) 82.2 % Normal [facility] Comment on above: Order Comment: Speci men Type: BLOOD SPECIMEN [facility] Address: [address] [place] [address] Performed By: #### 5 7021-8 #### [facility] CLIA [id number] [address] [place] [address] [place] Nucleated RBC (Bld) [#/Vol] Normal [facility] Comment on above: Order Comment: Speci men Type: BLOOD SPECIMEN [facility] Address: [address] [place] [address] Performed By: #### 5 7021-8 #### [facility] CLIA [id number] [address] [place] [address] [place] Nucleated RBC/100 WBC (Bld) [Ratio] Normal [facility] Comment on above: Order Comment: Speci men Type: BLOOD SPECIMEN [facility] Address: [facility] [place] [address] Performed By: #### 5 7021-8 #### [facility] CLIA [id number] [address] [place] [address] [place] Platelet mean volume (Bld) [Entitic vol] 9.6 fL Normal 9.0-12.7 [facility] Comment on above: Order Comment: Speci men Type: BLOOD SPECIMEN [facility] Address: [address] [place] [address] Performed By: #### 5 7021-8 #### [facility] CLIA [id number] [address] [place] [address] [place] Platelets (Bld) [#/Vol] 235 10*3/uL Normal 150-400 [facility] Comment on above: Order Comment: Speci men Type: BLOOD SPECIMEN [facility] Address: [address] [place] [address] Performed By: #### 5 7021-8 #### [facility] CLIA [id number] [address] [place] [address] [place] RBC (Bld) [#/Vol] 4.52 10*6/uL Normal 3.90-5.20 [facility] Comment on above: Order Comment: Speci men Type: BLOOD SPECIMEN [facility] Address: [address] [place] [address] Performed By: #### 5 7021-8 #### [facility] CLIA [id number] [address] [place] [address] [place] WBC (Bld) [#/Vol] 8.58 10*3/uL Normal 3.70-11.00 [facility] Comment on above: Order Comment: Speci men Type: BLOOD SPECIMEN [facility] Address: [address] [place] [address] Performed By: #### 5 7021-8 #### [facility] CLIA [id number] [address] [place] [address] OF [facility] CT ABD/PEL WO IVCONon 2023 CT ABD/PEL WO IVCON * * *Final Report* * * DATE OF EXAM: Jun 16 2023 1:18PM [facility] 0531 - CT ABD/PEL WO IVCON / PROCEDURE REASON: LLQ abdominal pain * * * * Physician Interpretation * * * * EXAMINATION: CT ABDOMEN AND PELVIS WITHOUT IV CONTRAST CLINICAL HISTORY: Abdominal pain, left lower quadrant pain TECHNIQUE: Non-IV contrast imaging of the abdomen and pelvis was performed using standard technique, scanning from just above the dome of the diaphragm to the symphysis pubis. Unenhanced imaging is limited for the evaluation of some intra-abdominal and pelvic pathology. MQ: CTAPWO_3 Contrast: IV: None : ml of CT Radiation dose: Integrated Dose-length product (DLP) for this visit = 294.25 mGy*cm. CT Dose Reduction Employed: Automated exposure control (AEC) COMPARISON: 05/26/2019 MRI pancreas. 05/15/2016 CT. RESULT: Abdomen / Pelvis: Liver: Unremarkable. Biliary: Gallbladder is absent. No bile duct dilatation Spleen: No splenomegaly. Pancreas: No CT evidence pancreatitis with limitations Adrenals: No mass. Kidneys: Right kidney: Mild to moderate right-sided pelvic caliectasis slightly less prominent than 2017 CT. No obstructing calculi. Left kidney: 2 cm exophytic well-defined hyperdense mass left lateral kidney increased from 1.5 cm in [address] Lesion was evaluated on MRI of the pancreas and report and represent a complicated cyst with hemorrhage and/or proteinaceous material. No left-sided collecting system calculi. GI Tract: Grossly distended stomach and small bowel loops filled with fluid. Gas and feces throughout the colon without distention. Appendix is normal. Lymph Nodes: No lymphadenopathy. Mesentery/peritoneum: No ascites. Retroperitoneum: No mass. Vasculature: No aneurysm Pelvis: No mass or ascites. No gynecological mass Bones/Soft Tissues: No acute osseous abnormality. Lower thorax: Unremarkable. Aircraft Refueller (topogram) images: IMPRESSION: 1. Grossly distended stomach and small bowel loops filled with fluid. Gas and feces throughout the colon without distention. CT findings are consistent with mechanical small bowel obstruction 2. Mild to moderate right-sided pelvic caliectasis slightly less prominent than 2017 CT. No obstructing calculi. 3. 2 cm exophytic well-defined hyperdense mass left lateral kidney increased from 1.5 cm in [address] Lesion was evaluated on MRI of the pancreas and report and represent a complicated cyst with hemorrhage and/or proteinaceous material. Burner Technician: PSCB Transcribe Date/Time: Jun 16 2023 1:21P Dictated by : NENA LOMELI MD This examination was interpreted and the report reviewed and electronically signed by: NENA LOMELI MD on Jun 16 2023 1:31PM EST [id number] Normal [facility] Comprehensive metabolic 2000 panelon 06-16-2023 Albumin [Mass/Vol] 4.4 g/dL Normal 3.9-4.9 [facility] Comment on above: Order Comment: Oscar baltazar Type: BLOOD SPECIMEN [facility] Address: [address] [place] [address] Performed By: #### 2 4323-8, 0-3 #### [facility] CLIA [id number] [address] [place] [address] [place] ALP [Catalytic activity/Vol] 82 U/L Normal 34-123 [facility] Comment on above: Order Comment: Oscar baltazar Type: BLOOD SPECIMEN [facility] Address: [address] [place] [address] Performed By: #### 2 4323-8, 0-3 #### [facility] CLIA [id number] [address] [place] [address] [place] ALT With P-5'-P [Catalytic activity/Vol] 18 U/L Normal 7-38 [facility] Comment on above: Order Comment: Oscar baltazar Type: BLOOD SPECIMEN [facility] Address: [address] [place] [address] Performed By: #### 2 4323-8, 3040-3 #### [facility] CLIA [id number] [address] [place] [address] [place] Anion gap [Moles/Vol] 14 mmol/L Normal 9-18 [facility] Comment on above: Order Comment: Speci men Type: BLOOD SPECIMEN [facility] Address: [address] [place] [address] Performed By: #### 2 4323-8, 3040-3 #### [facility] CLIA [id number] [address] [place] [address] [place] AST With P-5'-P [Catalytic activity/Vol] 30 U/L Normal 13-35 [facility] Comment on above: Order Comment: Speci men Type: BLOOD SPECIMEN [facility] Address: [address] [place] [address] Performed By: #### 2 4323-8, 3040-3 #### [facility] CLIA [id number] [address] [place] [address] [place] Bilirubin [Mass/Vol] 0.8 mg/dL Normal 0.2-1.3 [facility] Comment on above: Order Comment: Speci men Type: BLOOD SPECIMEN [facility] Address: [address] [place] [address] Performed By: #### 2 4323-8, 3040-3 #### [facility] CLIA [id number] [address] [place] [address] [place] Calcium [Mass/Vol] 9.2 mg/dL Normal 8.5-10.2 [facility] Comment on above: Order Comment: Speci men Type: BLOOD SPECIMEN [facility] Address: [address] [place] [address] Performed By: #### 2 4323-8, 3040-3 #### [facility] CLIA [id number] [address] [place] [address] [place] Chloride [Moles/Vol] 93 mmol/L Low 97-105 [facility] Comment on above: Order Comment: Speci men Type: BLOOD SPECIMEN [facility] Address: [address] [place] [address] Performed By: #### 2 4323-8, 3040-3 #### [facility] CLIA [id number] [address] [place] [address] [place] CO2 [Moles/Vol] 24 mmol/L Normal 22-30 [facility] Comment on above: Order Comment: Speci men Type: BLOOD SPECIMEN [facility] Address: [address] [place] [address] Performed By: #### 2 4323-8, 3039-3 #### [facility] CLIA [id number] [address] [place] [address] [place] Creatinine [Mass/Vol] 1.09 mg/dL High 0.58-0.96 [facility] Comment on above: Order Comment: Speci men Type: BLOOD SPECIMEN [facility] Address: [address] [place] [address] Performed By: #### 2 4323-8, 3039-3 #### [facility] CLIA [id number] [address] [place] [address] [place] Creatinine and Glomerular filtration rate.predicted panel (S/P/Bld) 51 mL/min/1.73m??? Low >=60 [facility] Comment on above: Order Comment: Speci men Type: BLOOD SPECIMEN [facility] Address: [address] [place] [address] Result Comment: Adalgisa mated Glomerular Filtration Rate (eGFR) is calculated using the 2020 CKD-EPI creatinine equation. This equation utilizes serum creatinine, sex, and age as parameters. The creatinine assay has traceable calibration to isotope dilution-mass spectrometry. Refer to KDIGO guidelines for clinical interpretation. In patients with unstable renal function, e.g. those with acute kidney injury, the eGFR may not accurately reflect actual GFR. Performed By: #### 2 4323-8, 0-3 #### [facility] CLIA [id number] [address] [place] [address] [place] Glucose [Mass/Vol] 115 mg/dL High 74-99 [facility] Comment on above: Order Comment: Oscar baltazar Type: BLOOD SPECIMEN [facility] Address: [address] [place] [address] Result Comment: The [place] [employer] (ADA) provides guidance for cutoff values for fasting glucose and random glucose. The ADA defines fasting as no caloric intake for at least 8 hours. Fasting plasma glucose results between 100 to 125 mg/dL indicate increased risk for diabetes (prediabetes). Fasting plasma glucose results greater than or equal to 126 mg/dL meet the criteria for diagnosis of diabetes. In the absence of unequivocal hyperglycemia, results should be confirmed by repeat testing. In a patient with classic symptoms of hyperglycemia or hyperglycemic crisis, random plasma glucose results greater than or equal to 200 mg/dL meet the criteria for diagnosis of diabetes. Reference: Standards of Medical Care in Diabetes 2016, [place] [employer]. Diabetes Care. 2016.39(Suppl 1). Performed By: #### 2 4323-8, 0-3 #### [facility] CLIA [id number] [address] [place] [address] [place] Potassium [Moles/Vol] 4.6 mmol/L Normal 3.7-5.1 [facility] Comment on above: Order Comment: Oscar baltazar Type: BLOOD SPECIMEN [facility] Address: [address] [place] [address] Performed By: #### 2 4323-8, 3040-3 #### [facility] CLIA [id number] [address] [place] [address] [place] Protein [Mass/Vol] 7.5 g/dL Normal 6.3-8.0 [facility] Comment on above: Order Comment: Oscar baltazar Type: BLOOD SPECIMEN [facility] Address: [address] [place] [address] Performed By: #### 2 4323-8, 3040-3 #### [facility] CLIA [id number] [address] [place] [address] [place] Sodium [Moles/Vol] 131 mmol/L Low 136-144 [facility] Comment on above: Order Comment: Speci men Type: BLOOD SPECIMEN [facility] Address: [address] [place] [address] Performed By: #### 2 4323-8, 3040-3 #### [facility] CLIA [id number] [address] [place] [address] [facility] [place] Urea nitrogen [Mass/Vol] 18 mg/dL Normal 7-21 [facility] Comment on above: Order Comment: Speci men Type: BLOOD SPECIMEN [facility] Address: [address] [place], [place] [address] Performed By: #### 2 4323-8, 3040-3 #### [facility] CLIA [id number] [address] [place] [address] [facility] [place] ECG COMPLETEon 06-16-2023 ECG COMPLETE Ventricular Rate : 7 1 BPM Atrial Rate : 71 BPM P-R Interval : 108 ms QRS Duration : 88 ms Q-T Interval : 392 ms QTC Calculation(Bazett) : 425 ms Calculated P Marquette : 6 degrees Calculated R Marquette : 36 degrees Calculated T Marquette : 54 degrees SINUS RHYTHM WITH SHORT MI OTHERWISE NORMAL ECG NO PREVIOUS ECGS AVAILABLE Confirmed by MD BEACH VINAYAK ([id number]) on 06/18/2023 10:45:30 PM NAME : MARY LI PID : [id number] : 1940 Gender : Female Race : ORD : [id number] Procedure Date : Jun 16 2023 12:06:54 Edit Date : Jun 18 2023 22:45:33 Diagnosis: SINUS RHYTHM WITH SHORT MI OTHERWISE NORMAL ECG NO PREVIOUS ECGS AVAILABLE Confirmed by MD BEACH VINAYAK ([id number]) on 06/18/2023 10:45:30 PM Test Reason : Chest Pain Location : 150 : [facility] Overread By : MD BEACH VINAYAK Edited By : MD BEACH VINAYAK Referred By : , Acquired by : MALENA PARKINSON [facility] ED NOTEon 06-16-2023 ED NOTE HNO ID: [id number] Author: ELA, ANDRIA, RN Service: ? Author Type: Registered Nurse Type: ED Notes Filed: 06/16/2023 16:31 Note Text: [facility] arrives, report given. To [place] with all belongings [facility] ED NOTE HNO ID: [id number] Author: ANDRIA MAHMOOD RN Service: ? Author Type: Registered Nurse Type: ED Notes Filed: 06/16/2023 16:06 Note Text: Pt resting calmly. Reports feeling better. Denies nausea and pain Warm blanket for comfort Normal [facility] ED NOTE HNO ID: [id number] Author: ANDRIA MAHMOOD RN Service: ? Author Type: Registered Nurse Type: ED Notes Filed: 06/16/2023 15:34 Note Text: [facility] contacted Aware of need for suction ETA 60min [facility] ED NOTE HNO ID: [id number] Author: ANDRIA MAHMOOD RN Service: ? Author Type: Registered Nurse Type: ED Notes Filed: 06/16/2023 15:24 Note Text: Bed assignment [place] 220-1 Report [phone] [facility] ED NOTE HNO ID: [id number] Author: ANDRIA MAHMOOD RN Service: ? Author Type: Registered Nurse Type: ED Notes Filed: 06/16/2023 16:08 Note Text: Radiology at bedside for XR Normal [facility] ED NOTE HNO ID: [id number] Author: ANDRIA MAHMOOD RN Service: ? Author Type: Registered Nurse Type: ED Notes Filed: 06/16/2023 16:07 Note Text: Large emesis of bile Normal [facility] ED NOTE HNO ID: [id number] Author: ANDRIA MAHMOOD RN Service: ? 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 Author Type: Registered Nurse Type: ED Notes Filed: 06/16/2023 12:31 Note Text: Pt ambulates to restroom. Dribbles, quantity insufficient for UA Normal [facility] ED NOTE HNO ID: [id number] Author: ANDRIA MAHMOOD, LUCY Service: ? Author Type: Registered Nurse Type: ED Notes Filed: 06/16/2023 11:08 Note Text: Pt arrives c/o abdominal pain, nausea, vomiting and diarrhea for 3 days Normal [facility] ED PROV NOTEon 06-16-2023 ED PROV NOTE HNO ID: [id number] Author: MAXINE FARRIS MD Service: Emergency Medicine Author Type: Physician Type: ED Provider Notes Filed: 06/16/2023 16:09 Note Text: ED Provider Note Patient Name: Mary Li : 1940 SERVICE DATE: 06/16/23 History Patient presents with: Abdominal Pain Nausea AND Vomiting Diarrhea Patient is an 82-year-old female with history of possible Crohn's disease, not on medical therapy, chronic UTIs, presenting to the emergency room for evaluation of some diffuse abdominal discomfort, bloating, constipation, nausea and vomiting. She has a history of gallbladder removal in 2019 at [facility]. She has a history of partial colectomy in the past. States subjective fever/chills, and decreased p.o. intake secondary to nausea and vomiting. There are very number of people sick with similar symptoms in the [facility] currently, but patient has not been exposed any of them. Pain is described as achy throughout the abdomen, without radiation. No aggravating or alleviating factors. Denies other acute sick symptoms. 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 Constipation Diverticulitis Hiatal hernia UTI (urinary tract infection) PAST SURGICAL HISTORY Procedure Laterality Date CATARACT EXTRACTION HX COLONOSCOPY 2011 COLONOSCOPY FLX DX W/COLLJ SPEC WHEN PFRMD 07/03/2016 Repeat 2026 ESOPHAGOGASTRODUODENOSCOPY TRANSORAL DIAGNOSTIC 07/03/2016 KNEE SURGERY HX Left [address] [place] FAMILY HISTORY Problem Relation Age of Onset Cancer Father Macular Degen Mother Cataract Mother Cancer Mother Hypertension Mother Macular Degen Brother Cancer Brother Hypertension Brother Glaucoma No Family History Social History Tobacco Use Smoking status: Never Smokeless tobacco: Never Vaping Use Vaping Use: Never used Substance and Sexual Activity Alcohol use: No Drug use: No Sexual activity: Not on file Comment: not asked ALLERGIES Allergen Reactions Codeine Mental Status Change Red Dye Hives Review of Systems Constitutional: Positive for fever. Negative for activity change and chills. HENT: Negative for ear discharge and ear pain. Eyes: Negative for pain and discharge. Respiratory: Negative for cough and shortness of breath. Cardiovascular: Negative for chest pain and palpitations. Gastrointestinal: Positive for abdominal pain, constipation, nausea and vomiting. Negative for diarrhea. Genitourinary: Negative for dysuria and flank pain. Musculoskeletal: Negative for back pain and neck pain. Skin: Negative for color change, rash and wound. Neurological: Negative for dizziness, seizures and numbness. Psychiatric/Behavioral: Negative for self-injury and suicidal ideas. Physical Exam Vitals [06/16/23 1103] BP Pulse Temp Temp src Resp SpO2 Weight Height 127/99 76 36.4 ?C (97.6 ?F) Temporal 14 96 % 59 kg (130 lb) -- Physical Exam Vitals and nursing note reviewed. Constitutional: General: She is not in acute distress. Appearance: She is well-developed. She is not diaphoretic. HENT: Head: Normocephalic and atraumatic. Right Ear: External ear normal. Left Ear: External ear normal. Nose: Nose normal. Mouth/Throat: Mouth: Mucous membranes are moist. Pharynx: No oropharyngeal exudate or posterior oropharyngeal erythema. Comments: No posterior oropharynx swelling or exudate. Uvula midline without edema. No drooling or dysphonia. No woody induration underneath the tongue. Tongue is midline without elevation. Eyes: General: No scleral icterus. Right eye: No discharge. Left eye: No discharge. Pupils: Pupils are equal, round, and reactive to light. Cardiovascular: Rate and Rhythm: Normal rate and regular rhythm. Heart sounds: Normal heart sounds. No murmur heard. No friction rub. No gallop. Pulmonary: Effort: Pulmonary effort is normal. No respiratory distress. Breath sounds: Normal breath sounds. No stridor. No wheezing or rales. Chest: Chest wall: No tenderness. Abdominal: Palpations: Abdomen is soft. Tenderness: There is abdominal tenderness in the left lower quadrant. There is no guarding. Musculoskeletal: General: No tenderness or deformity. Normal range of motion. Cervical back: Normal range of motion and neck supple. Skin: General: Skin is warm and dry. Capillary Refill: Capillary refill takes less than 2 seconds. Findings: No rash. Neurological: General: No focal deficit present. Mental Status: She is alert and oriented to person, place, and time. Cranial Nerves: No cranial nerve deficit. Sensory: No sensory deficit. Motor: No weakness. Psychiatric: Mood and Affect: Mood normal. Behavior: Behavior normal. Diagnostic Testing ED Labs Ordered and Reviewed - No data to display Procedures ED Course / Clinical Impression Clinical Impressions as of 06/16/23 1554 Small bowel obstruction (HCC) MDM / Dispo (more content not included)... Normal [facility] HISTORY PHYSICALon HISTORY PHYSICAL HNO ID: [id number] Author: TYRELL FINK MD Service: General Surgery Author Type: Physician Type: H&P Filed: 06/16/2023 18:13 Note Text: SURGICAL SERVICES HANDP SERVICE DATE: 06/16/2023 SERVICE TIME: 6:09 PM PRIMARY CARE PHYSICIAN: Andria Steve DO, DO Subjective CHIEF COMPLAINT: Abdominal pain and nausea/vomiting --small bowel obstruction HISTORY OF PRESENT ILLNESS: Ms. Li is a 82 year old female who presented to the emergency room with a several day history of abdominal pain along with nausea and vomiting. She does have a history of possible Crohn's disease but is not on any type of medical therapy. As a result she underwent a previous partial colectomy many years ago. She also has a history of chronic UTIs. She presented to the emergency room in [place] with these complaints. She was seen and evaluated by the ER staff CAT scan was performed and showed a very distended stomach along with findings concerning for small bowel obstruction. I was contacted to transfer the patient for further evaluation and treatment. We did recommend NG tube which was placed in [place]. She felt considerably better after this was placed and it sounds as though a copious amount of stomach contents were able to be removed. 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 Constipation Diverticulitis Hiatal hernia UTI (urinary tract infection) PAST SURGICAL HISTORY Procedure Laterality Date CATARACT EXTRACTION HX COLONOSCOPY 2011 COLONOSCOPY FLX DX W/COLLJ SPEC WHEN PFRMD 07/03/2016 Repeat 2026 ESOPHAGOGASTRODUODENOSCOPY TRANSORAL DIAGNOSTIC 07/03/2016 KNEE SURGERY HX Left 1998 [place] FAMILY HISTORY Problem Relation Age of Onset Cancer Father Macular Degen Mother Cataract Mother Cancer Mother Hypertension Mother Macular Degen Brother Cancer Brother Hypertension Brother Glaucoma No Family History Social History Tobacco Use Smoking status: Never Smokeless tobacco: Never Vaping Use Vaping Use: Never used Substance Use Topics Alcohol use: No Drug use: No ondansetron (ZOFRAN) 4 mg tablet, Take 8 mg by mouth every 8 hours as needed for nausea/vomiting., Disp: , Rfl: , 06/16/2023 dicyclomine (BENTYL) 20 mg tablet, Take 10 mg by mouth three times a day as needed (after meals). After meals as needed, Disp: , Rfl: , 06/14/2023 at 1500 sulfamethoxazole-trimethopr im (BACTRIM) 400-80 mg per tablet, Take 1 tablet by mouth once daily., Disp: , Rfl: , 06/14/2023 at 1500 sertraline (ZOLOFT) 50 mg tablet, Take 50 mg by mouth once daily., Disp: , Rfl: omega-3 fatty acids 1,000 mg cap, Take 2 g by mouth once daily., Disp: , Rfl: , 06/14/2023 at 1500 vits A-C-E-B [id number] 5,000 unit- 120 mg-60 unit TbER, Take 1 capsule by mouth once daily., Disp: , Rfl: , 06/14/2023 at 1500 Cholecalciferol, Vitamin D3, 25 mcg (1,000 unit) cap, Take 1,000 Units by mouth once daily., Disp: , Rfl: , 06/14/2023 at 1500 Multivitamin capsule, Take 1 capsule by mouth once daily., Disp: , Rfl: , 06/14/2023 at 1500 promethazine (PHENERGAN) 25 mg tablet, Take 1 tablet by mouth every 6 hours as needed., Disp: 30 tablet, Rfl: 0, Unknown No current facility-administered medications for this encounter. ALLERGIES Allergen Reactions Codeine Mental Status Change Red Dye Hives COMPLETE REVIEW OF SYSTEMS: GENERAL: No weight loss, malaise or fevers RESPIRATORY: Negative for cough, hemoptysis, wheezing, COPD, dyspnea or shortness of breath CARDIOVASCULAR: Negative for chest pain, leg swelling, hypertension, CHF or palpitations GI: No nausea, vomiting, or diarrhea and See HPI Objective PHYSICAL EXAM: BP 133/94 Pulse 79 Temp (Src) 98.8 (Oral) Resp 16 Ht 5' 5 (1.65m) Wt 144 lb 2.9 oz (65.4kg) SpO2 97% BMI 23.99 kg/(m2). O2 Therapy: Room Air Physical Exam Performed GENERAL: Alert, no distress, cooperative ABDOMEN: Abdomen is soft and mildly distended. Mild tenderness to palpation. No rebound or guarding. The gastric tube is in place DATA: Diagnostic tests reviewed for today's visit: Most recent labs and imaging results. Assessment/Plan The patient is a an 82-year-old female who presents with nausea vomiting and abdominal pain. ER workup revealed a small bowel obstruction probably related to adhesions. She had a very distended stomach and an NG tube was placed. This returned a copious amount of drainage. She states that she is feeling better. Plan is to keep her admitted for IV fluids and n.p.o. Repeat abdominal x-rays will be performed in the morning. We did discuss conservative versus surgical treatment of small bowel obstructions. She is agreeable this plan. SIGNATURE: Tyrell Fink MD PATIENT NAME: Mary Li DATE: June 16, 2023 TIME: 6:09 PM Normal [facility] Lactate (Bld) [Moles/Vol]on 06-16-2023 Lactate [Moles/Vol] 1.1 mmol/L Normal 0.5-2.2 [facility] Comment on above: Order Comment: Oscar baltazar Type: BLOOD SPECIMEN Ordering Facility: [facility] Address: [address] [place] [address] Performed By: #### 3 2693-4 #### [facility] CLIA [id number] [address] [place] [address] [place] Lipase SerPl-cCncon 06-16-19 24 Lipase [Catalytic activity/Vol] 29 U/L Normal 16-61 [facility] Comment on above: Order Comment: Oscar baltazar Type: BLOOD SPECIMEN Ordering Facility: [facility] Address: [address] [id number] Performed By: #### 2 4323-8, 33503 #### [facility] CLIA [id number] [address] [place] [address] [facility] NURSING PROGon 06-16-2023 NURSING PROG HNO ID: [id number] Author: RAMONA LOVE, RN Service: Nursing Author Type: Registered Nurse Type: Nursing Progress Note Filed: 06/16/2023 19:10 Note Text: Other: Admission assessment completed. C-SSRS screening completed. Patient answered yes to the first question. Patient has no intentions hurting herself. Patient reported since her in October last year, she felt depressed. Dr Aleks dietrich. 2 RN Skin assessment completed with LUCY Carter. Normal [facility] Urinalysis complete pnl Uron 06-16-2023 Urinalysis complete panel (U) COLOR: Dark Yellow CLARITY: Cloudy GLUCOSE, URINE: Negative BILIRUBIN, URINE: 1+ Suggest correlation with clinical findings and serum bilirubin if clinically indicated. KETONES, URINE: 2+ SPECIFIC GRAVITY, UR: >=1.030 HEMOGLOBIN/BLOOD, UR: Trace PH, URINE: 5.5 PROTEIN, URINE: 1+ UROBILINOGEN: 0.2 EU/dL NITRITES: Negative LEUKEST: Negative WBC, URINE: >25 /HPF RBC, URINE: 11-25 /HPF SQUAMOUS EPITHELIAL CELLS: Few HYALINE CASTS: >10 /LPF CALCIUM OXALATE CRYSTALS (UA): Few CULTURE, URINE: <10,000 CFU/ml Normal Urogenital Gill Abnormal [facility] Comment on above: Order Comment: Speci men Type: URINE SPECIMENOrdering Facility: [facility] Address: [address] [place] [address] Performed By: #### 2 4356-8 ####[facility]IA [id number] [place] [address] [facility] LABORATORYCLIA [id number] [place] [address] [facility] XR ABDOMEN 1V SUPINEon 06-15 XR ABDOMEN 1V SUPINE * * *Final Report* * * DATE OF EXAM: Jun 16 2023 3:31PM LDX 5289 - XR ABDOMEN 1V SUPINE / PROCEDURE REASON: Evaluate tube, line or lead position * * * * Physician Interpretation * * * * Abdomen supine: HISTORY: Indication: Evaluate tube, line or lead position. Small bowel obstruction TECHNIQUE: Views obtained: XR ABDOMEN 1V SUPINE Comparison: 06/16/2023 CT RESULT/ impression: Status post placement of enteric tube with the tip in the right side of the abdomen expected location of distal stomach/proximal duodenum Burner Technician: BLOSSOM Transcribe Date/Time: Jun 16 2023 3:35P Dictated by : NENA LOMELI MD This examination was interpreted and the report reviewed and electronically signed by: NENA LOMELI MD on Jun 16 2023 3:35PM EST [id number] Normal [facility] Basophil percentageOrdered B y: Evonne Lara on 02-24-2023 Chloride [Moles/Vol] 108 mmol/L 98-107 [facility] Glucose [Mass/Vol] 68 mg/dL 74-106 [facility] Potassium [Moles/Vol] 4.1 mmol/L 3.5-5.1 [facility] Sodium [Moles/Vol] 141 mmol/L 136-145 [facility] Laboratory - Chemistry and C hemistry - challengeOrdered By: Evonne Lara on 02-24-2023 CO2 [Moles/Vol] 27.0 mmol/L 21.0-32.0 [facility] Urea nitrogen/Creatinine [Mass ratio] 13.8 mg/mg - [facility] No Panel InformationOrdered By: Evonne Lara on 02-24-2023 Estimated GFR (MDRD) Amer 80 mL/min >60 [facility] Comment on above: GFR Calc Estimated GFR (MDRD) Non-Af Amer 66 mL/min >60 [facility] Comment on above: Non- GFR Calc Serum or plasma calcium theron urement (mass/volume)Ordered By: Evonne Lara on 02-24-2023 Calcium [Mass/Vol] 8.8 mg/dL 8.5-10.1 [facility] Serum or plasma creatinine m easurement (mass/volume)Ordered By: Evonne Lara on 02-24-2023 Creatinine [Mass/Vol] 0.87 mg/dL 0.55-1.02 [facility] Comment on above: The validity of the calculated GFR & GFRAA in patients over 70 years has not been determined. Clinical correlation is essential. Serum or plasma urea nitroge n measurement (mass/volume)Ordered By: Evonne Lara on 02-24-2023 Urea nitrogen [Mass/Vol] 12 mg/dL 7-18 [facility] Thin prep Papanicolaou smear with manual screeningOrdered By: Evonne Lara on 02-24-2023 Thin prep Papanicolaou smear with manual screening 6 5-15 [facility] Basophil percentageOrdered B y: Evonne Lara on 02-21-2023 Basophil percentage < 0.9 mg/dL 0.55-1.02 [facility] No Panel InformationOrdered By: Evonne Lara on 02-21-2023 Bedside Estimated GFR (eGFR) > 60.0000 mL/min >60 [facility] Basophil percentageOrdered B y: Evonne Lara on 02-04-2023 Chloride [Moles/Vol] 103 mmol/L 98-107 [facility] Glucose [Mass/Vol] 126 mg/dL 74-106 [facility] Comment on above: Fasting Glucose resu lt greater than or equal to 126 mg/dL suggests DIABETES MELLITUS per A.D.A. criteria. Potassium [Moles/Vol] 3.9 mmol/L 3.5-5.1 [facility] Sodium [Moles/Vol] 131 mmol/L 136-145 [facility] Basophil percentage < 0.9 mg/dL 0.55-1.02 [facility] Laboratory - Chemistry and C hemistry - challengeOrdered By: Evonne Lara on 02-04-2023 CO2 [Moles/Vol] 26.0 mmol/L 21.0-32.0 [facility] Urea nitrogen/Creatinine [Mass ratio] 21.8 mg/mg 01-24 [facility] No Panel InformationOrdered By: Evonne Lara on 02-04-2023 Estimated GFR (MDRD) Amer 56 mL/min >60 [facility] Comment on above: GFR Calc Estimated GFR (MDRD) Non-Af Amer 46 mL/min >60 [facility] Comment on above: Non- GFR Calc Bedside Estimated GFR (eGFR) > 60.0000 mL/min >60 [facility] Serum or plasma calcium theron urement (mass/volume)Ordered By: Evonne Lara on 02-04-2023 Calcium [Mass/Vol] 9.2 mg/dL 8.5-10.1 [facility] Serum or plasma creatinine m easurement (mass/volume)Ordered By: Evonne Lara on 02-04-2023 Creatinine [Mass/Vol] 1.19 mg/dL 0.55-1.02 [facility] Comment on above: The validity of the calculated GFR & GFRAA in patients over 70 years has not been determined. Clinical correlation is essential. Serum or plasma urea nitroge n measurement (mass/volume)Ordered By: Evonne Lara on 02-04-2023 Urea nitrogen [Mass/Vol] 26 mg/dL 7-18 [facility] Thin prep Papanicolaou smear with manual screeningOrdered By: Evonne Lara on 02-04-2023 Thin prep Papanicolaou smear with manual screening 2 5-15 [facility] URINE ANUJ CULTURE-IDENTIFICA [place] ([id number])Ordered By: Size Marker on 12-05-2022 Bacteria identified Cx Nom (U) Final report Normal [facility]; [facility] Work Phone: Comment on above: PERFORMED BY: [facility] [id number] Information: SRC:UR Bacteria identified Cx Nom (U) NG36 Normal [facility]; [facility] Work Phone: Comment on above: No growth in 36 - 48 hours. PERFORMED BY: [employer] [place] [id number] Information: SRC:UR Urinalysis, Office ([id number])Or dered By: KELBY Armando on 12-05-2022 Bilirubin Ql (U) Negative Normal [facility]; [facility] Work Phone: Glucose Test strip (U) [Mass/Vol] Negative Normal [facility]; [facility] Work Phone: Hemoglobin Ql (U) +++ Abnormal Compreh [facility]; [facility] Work Phone: Ketones Ql (U) Negative Normal [facility]prehens [facility]; [facility] Work Phone: Leukocyte esterase Test strip Ql (U) Negative Normal [facility]; [facility] Work Phone: Nitrite Ql (U) Negative Normal [facility]; [facility] Work Phone: pH (U) 6.5 [pH] Normal [facility]; [facility] Work Phone: Protein Ql (U) + Abnormal Comprehens [facility]; [facility] Work Phone: Specific gravity (U) [Rel density] 1.010 1 Normal [facility]; [facility] Work Phone: Urobilinogen (24H U) [Mass/Time] 2 mg/dL Normal [facility]; [facility] Work Phone: Absolute lymphocyte countOrd ered By: Mattie Annam on 11-20-2022 Lymphocytes Auto (Unsp spec) [#/Vol] 1.88 10*3/uL 0.83-4.51 [facility] Basophil percentageOrdered B y: Mattie Bob on 11-20-2022 Basophils/100 WBC (Bld) 0.6 % 0-1 [facility] Bilirubin [Mass/Vol] 0.50 mg/dL 0.20-1.00 [facility] Comment on above: For patients on eltr ombopag therapy, use of Dimension Watts TBIL is not recommended. Chloride [Moles/Vol] 109 mmol/L 98-107 [facility] Eosinophils/100 WBC (Bld) 1.3 % 0-5 [facility] Glucose [Mass/Vol] 84 mg/dL 74-106 [facility] Neutrophils (Bld) [#/Vol] 3.8 10*3/uL 2.0-7.7 [facility] Neutrophils/100 WBC (Bld) 60.5 % 47-70 [facility] Potassium [Moles/Vol] 4.1 mmol/L 3.5-5.1 [facility] Protein [Mass/Vol] 7.1 g/dL 6.4-8.2 [facility] Sodium [Moles/Vol] 142 mmol/L 136-145 [facility] WBC (Bld) [#/Vol] 6.3 10*3/uL 4.4-11.0 [facility] Blood erythrocytes count (nu mber/volume)Ordered By: Mattie Rojas on 11-20-2022 RBC (Bld) [#/Vol] 4.16 10*6/uL 4.2-5.4 [facility] Blood hemoglobin measurement (mass/volume)Ordered By: Mattie Rojas on 11-20-2022 Hemoglobin (Bld) [Mass/Vol] 12.4 g/dL 12.0-15.0 [facility] Blood lymphocytes/100 leukoc ytesOrdered By: Mattie Rojas on 11-20-2022 Lymphocytes/100 WBC (Bld) 29.8 % 19-41 [facility] Blood monocytes/100 leukocyt esOrdered By: Mattie Rojas on 11-20-2022 Monocytes/100 WBC (Bld) 7.6 % 0-10 [facility] Blood platelet mean volumeOr dered By: Mattie Rojas on 11-20-2022 Platelet mean volume (Bld) [Entitic vol] 10.9 fL 6.2-12.0 [facility] Determination of erythrocyte mean corpuscular volume (MCV)Ordered By: Mattie Rojas on 11-20-2022 MCV (RBC) [Entitic vol] 93.8 fL 81-99 [facility] Hematocrit Auto (Bld) [Volum e fraction]Ordered By: Mattie Rojas on 11-20-2022 Hematocrit (Bld) [Volume fraction] 39.0 % 37-47 [facility] Laboratory - Chemistry and C hemistry - challengeOrdered By: Mattie Rojas on 11-20-2022 ALP [Catalytic activity/Vol] 70 U/L 45-117 [facility] ALT [Catalytic activity/Vol] 21 U/L 13-56 [facility] CO2 [Moles/Vol] 33.0 mmol/L 21.0-32.0 [facility] Globulin (S) [Mass/Vol] 3.5 g/dL 2.2-4.2 [facility] Urea nitrogen/Creatinine [Mass ratio] 15.5 mg/mg 10-20 [facility] Laboratory - Hematology and Cell countsOrdered By: Mattie Rojas on 11-20-2022 Erythrocyte distribution width (RBC) [Entitic vol] 45.2 fL 35.1-43.9 [facility] Erythrocyte distribution width (RBC) [Ratio] 13.2 % 11.6-14.6 [facility] [facility] Immature granulocytes/100 WBC (Bld) 0.200 % 0.0-0.9 [facility] Comment on above: IG% - Immature Granu locytes (promyelocytes, myelocytes and metamyelocytes) > 1% indicates that a LEFT SHIFT is Present. MCH (RBC) [Entitic mass] 29.8 pg 27.0-32.0 [facility] Nucleated RBC/100 WBC (Bld) [Ratio] 0 % 0-5 [facility] MCHC Auto (RBC) [Mass/Vol]Or dered By: Mattie Rojas on 11-20-2022 MCHC (RBC) [Mass/Vol] 31.8 g/dL 32-36 [facility] No Panel InformationOrdered By: Mattie Rojas on 11-20-2022 Estimated GFR (MDRD) Amer 84 mL/min >60 [facility] Comment on above: GFR Calc Estimated GFR (MDRD) Non-Af Amer 69 mL/min >60 [facility] Comment on above: Non- GFR Calc Platelets bldOrdered By: Joey Rojas on 11-20-2022 Platelets (Bld) [#/Vol] 233 10*3/uL 150-450 [facility] Serum or plasma albumin theron urement (mass/volume)Ordered By: Mattie Rojas on 11-20-2022 Albumin [Mass/Vol] 3.6 g/dL 3.2-5.0 [facility] Serum or plasma albumin/glob ulin mass ratioOrdered By: Mattie Rojas on 11-20-2022 Albumin/Globulin [Mass ratio] 1.0 {ratio} 0.9-2.4 [facility] Serum or plasma calcium theron urement (mass/volume)Ordered By: Mattie Rojas on 11-20-2022 Calcium [Mass/Vol] 9.1 mg/dL 8.5-10.1 [facility] Serum or plasma creatinine m easurement (mass/volume)Ordered By: Mattie Rojas on 11-20-2022 Creatinine [Mass/Vol] 0.84 mg/dL 0.55-1.02 [facility] Comment on above: The validity of the calculated GFR & GFRAA in patients over 70 years has not been determined. Clinical correlation is essential. Serum or plasma urea nitroge n measurement (mass/volume)Ordered By: Mattie Rojas on 11-20-2022 Urea nitrogen [Mass/Vol] 13 mg/dL 7-18 [facility] Thin prep Papanicolaou smear with manual screeningOrdered By: Mattie Rojas on 11-20-2022 Thin prep Papanicolaou smear with manual screening 22 U/L 15-37 [facility] Thin prep Papanicolaou smear with manual screening 0 5-15 [facility] Urinalysis, Complete W/ Micr oscopic Examination with reflex to urine culture, routine ([id number])Ordered By: Size Marker on 11-20-2022 Appearance (U) Turbid Abnormal Comprehens [facility]; [facility] Work Phone: Comment on above: PERFORMED BY: [employer] [place] [id number] Color (U) Tripp Normal [facility]; [facility] Work Phone: Comment on above: Test not performed. Unable to obtain accurate result for this testdue to intense color of specimen. PERFORMED BY: [employer] [place] [id number] Urinalysis, Complete W/ Microscopic Examination with reflex to urine culture, routine ([id number]) See below: Normal [facility]; [facility] Work Phone: Comment on above: Microscopic was shirley cated and was performed. PERFORMED BY: [employer] [place] [id number] Urinalysis, Complete W/ Microscopic Examination with reflex to urine culture, routine ([id number]) FLEX Normal [facility]; [facility] Work Phone: Comment on above: This specimen has re flexed to a Urine Culture. PERFORMED BY: [employer] [place] [id number] Urinalysis, Office ([id number])Or dered By: Mellisa Salguero on 11-20-2022 Bilirubin Ql (U) +++ Abnormal [facility]; [facility] Work Phone: Glucose Test strip (U) [Mass/Vol] Trace Normal [facility]; [facility] Work Phone: Hemoglobin Ql (U) + Abnormal [facility]; [facility] Work Phone: Ketones Ql (U) Small Normal Comprehens [facility]; [facility] Work Phone: Leukocyte esterase Test strip Ql (U) Large Abnormal [facility]; [facility] Work Phone: Nitrite Ql (U) + Abnormal Comprehens [facility]; [facility] Work Phone: pH (U) 5.0 [pH] Normal [facility]; [facility] Work Phone: Protein Ql (U) + Abnormal Comprehens [facility]; [facility] Work Phone: Specific gravity (U) [Rel density] 1.025 1 Normal [facility]; [facility] Work Phone: Urobilinogen (24H U) [Mass/Time] 2 mg/dL Normal [facility]; [facility] Work Phone: Provider Note - ED v2on 11-05 Provider Note - ED v2 Provider Note - ED v2: Chart Review: ED NOTES ED NOTES: Patient came in with complaints of right ring finger injury. Patient says she smashed in a chair. Patient says it does hurt to move it at the middle knuckle joint and the distal knuckle joint. Patient says there is some bruising and swelling. Patient denies any other symptoms. HISTORY OF PRESENTING ILLNESS MARY is a 80 year old Female and was seen by me at 15-Nov-2020 16:28. The historian is the patient. Triage Information: Most recent Vital Sign Value Date PAST MEDICAL HISTORY ATTESTATION: I have reviewed and confirmed nurse's/medic's notes for patient's medications, allergies, and medical, surgical, family and social history PSYCHOSOCIAL SCREENING: NO: concerns for safety at home, feelings of depression, feels like hurting others and feels like hurting self ALLERGIES/INTOLERANCES: Allergy Allergen: codeine Type: Drug Reaction: Hives/Urticaria HEALTH HISTORY: Medical History Name:Finger sprain Code:S63.619A OUTPATIENT MEDICATIONS: Home Medications Review Status for Reconciliation: Complete Med Status: Patient Currently Takes Medications Drug Name: dicyclomine 10 mg oral capsule Instructions: 2 cap(s) orally 4 times a day Drug Name: sertraline 50 mg oral tablet Instructions: 1 tab(s) orally once a day Drug Name: Zofran 8 mg oral tablet Instructions: 1 tab(s) orally 3 times a day, As Needed Drug Name: [place]-3 1000 mg oral capsule Instructions: 1 cap(s) orally once a day Drug Name: Lutein 20 mg oral tablet Instructions: 1 tab(s) orally once a day Drug Name: Vitamin D3 1000 intl units (25 mcg) oral tablet Instructions: 1 tab(s) orally once a day SIGNIFICANT EVENTS: No documented data. REVIEW OF SYSTEMS MUSCULOSKELETAL: POSITIVE for: pain All other systems reviewed and are negative RESULTS/VITAL SIGNS VITAL SIGNS: T PRBP SpO2O2(LPM) %FiO2 Method 15-Nov-2020 16:04:[id number] 97 PHYSICAL EXAM CONSTITUTIONAL: Well appearing, well nourished, awake, alert, oriented to person, place, time/situation and in no apparent distress. HENMT: Airway patent, Nasal mucosa clear. Mouth with normal mucosa. Throat has no vesicles, no oropharyngeal exudates and uvula is midline. Face with no lymph node enlargement. EYES: pupils are accommodating CARDIOVASCULAR: Normal rate, regular rhythm. RESPIRATORY: Breath sounds clear and equal bilaterally and unlabored. no Rales rhonchi or crackles. MUSCULOSKELETAL: She does have pain in the right ring finger middle and distal joints. Moderate amount of bruising noted. Mild amount of swelling noted. NEUROLOGICAL: Alert and oriented, no focal deficits, no motor or sensory deficits. SKIN: Skin normal color for race, warm, dry and intact. No evidence of trauma. PSYCHIATRIC: Alert and oriented to person, place, time/situation. normal mood and affect. No apparent risk to self or others. CLINICAL IMPRESSION Diagnosis/Annotation: Finger sprain Code:S63.619A Disposition: discharged Type: home ATTESTATION Comments/Additional Findings: Patient was ordered an x-ray patient may not be able to go get the x-ray today but she may get it tomorrow. Will confirm care plan once the x-ray is obtained and read. CRITICAL CARE TIME Is this a critically ill patient: no Electronic Signatures: Mehreen Lopes (SMELTER OPERATOR-BRUSH HOLDER INSPECTOR) (Signed 15-Nov-2020 16:31) Authored: ED Notes, HPI, PMH, ROS, PE, Results/Vital Signs, Clinical Impression, Attestation, Chart Review, Scores Last Updated: 15-Nov-2020 16:31 by Mehreen Lopes (SMELTER OPERATOR-BRUSH HOLDER INSPECTOR) [facility] Urinalysis, Office ([id number])Or dered By: Estelita Roth on 02-10-2020 Bilirubin Ql (U) Negative Normal [facility] Work Phone: Bilirubin Ql (U) Negative Normal [facility]; [facility] Work Phone: Glucose Test strip (U) [Mass/Vol] Negative Normal [facility] Work Phone: Glucose Test strip (U) [Mass/Vol] Negative Normal [facility]; [facility] Work Phone: Hemoglobin Ql (U) Negative Normal [facility] Work Phone: Hemoglobin Ql (U) Negative Normal [facility]; [facility] Work Phone: Ketones Ql (U) Negative Normal Comprehens [facility] Work Phone: Ketones Ql (U) Negative Normal Comprehens [facility]; [facility] Work Phone: Leukocyte esterase Test strip Ql (U) Negative Normal [facility] Work Phone: Leukocyte esterase Test strip Ql (U) Negative Normal [facility]; [facility] Work Phone: Nitrite Ql (U) Negative Normal Comprehens [facility] Work Phone: Nitrite Ql (U) Negative Normal Comprehens [facility]; [facility] Work Phone: pH (U) 6.0 [pH] Normal [facility] Work Phone: Protein Ql (U) Negative Normal Comprehens [facility] Work Phone: Protein Ql (U) Negative Normal Comprehens [facility]; [facility] Work Phone: Specific gravity (U) [Rel density] 1.025 1 Normal [facility] Work Phone: Urobilinogen (24H U) [Mass/Time] Normal Normal [facility] Work Phone: URINE ANUJ CULTURE-IDENTIFICA [place] ([id number])Ordered By: Size Marker on 01-20-2020 Bacteria identified Cx Nom (U) Final report Abnormal [facility] Work Phone: Comment on above: PATIENT NOT FASTINGP ERFORMED BY: [employer], [facility] [id number] Information: SRC:UC Bacteria identified Cx Nom (U) Escherichia coli Abnormal [facility] Work Phone: Comment on above: Greater than 100,000 colony forming units per mLCefazolin <=4 ug/mLCefazolin with an NATALIO <=16 predicts susceptibility to the oral agentscefaclor, cefdinir, cefpodoxime, cefprozil, cefuroxime, cephalexin,and loracarbef when used for therapy of uncomplicated urinary tractinfections due to E. coli, Klebsiella pneumoniae, and Proteusmirabilis. PATIENT NOT FASTINGP ERFORMED BY: [id number], [facility] [id number] Information: SRC:UC Other Antibiotic [Susc] MIHEAD Normal [facility] Work Phone: Comment on above: S = Susceptible; I = Intermediate; R = Resistant P = Positive; N = Negative MICS are expressed in micrograms per mL Antibiotic RSLT#1 RSLT#2 RSLT#3 RSLT#4Amoxicillin/Clavulanic Acid SAmpicillin SCefepime SCeftriaxone SCefuroxime SCiprofloxacin SErtapenem SGentamicin SImipenem SLevofloxacin SMeropenem SNitrofurantoin SPiperacillin/Tazobactam STetracycline STobramycin STrimethoprim/Sulfa S PATIENT NOT FASTINGP ERFORMED BY: JEANETH [facility] [id number] Hameed RoadRandolph Health [id number] Information: SRC:VANCE Urinalysis, Office ([id number])Or dered By: Lily Acuña on 01-20-2020 Bilirubin Ql (U) Negative Normal [facility] Work Phone: Bilirubin Ql (U) Negative Normal [facility]; [facility] Work Phone: Glucose Test strip (U) [Mass/Vol] Negative Normal [facility] Work Phone: Glucose Test strip (U) [Mass/Vol] Negative Normal [facility]; [facility] Work Phone: Hemoglobin Ql (U) + Abnormal [facility] Work Phone: Ketones Ql (U) Negative Normal Comprehens [facility] Work Phone: Ketones Ql (U) Negative Normal Comprehens [facility]; [facility] Work Phone: Leukocyte esterase Test strip Ql (U) Large Normal [facility] Work Phone: Comment on above: 3+ Nitrite Ql (U) Negative Normal Comprehens [facility] Work Phone: Nitrite Ql (U) Negative Normal Comprehens [facility]; [facility] Work Phone: pH (U) 6.0 [pH] Normal [facility] Work Phone: Protein Ql (U) Negative Normal Comprehens [facility] Work Phone: Protein Ql (U) Negative Normal Comprehens [facility]; [facility] Work Phone: Specific gravity (U) [Rel density] 1.020 1 Normal [facility] Work Phone: Urobilinogen (24H U) [Mass/Time] Normal Normal [facility] Work Phone: MRI 3D POST PROCESSINGon MRI 3D POST PROCESSING * * *Final Report* * * DATE OF EXAM: May 26 2019 7:34PM TRENT Henriquez0 - MRI 3D POST PROCESSING / PROCEDURE REASON: multiple diagnoses * * * * Physician Interpretation * * * * TITLE: MRCP OF THE ABDOMEN WITH IV CONTRAST with 3-D reconstructions DATE: 05/26/2019 COMPARISON: CT abdomen and pelvis 07/08/2016 INDICATION: Right upper quadrant abdominal pain, evaluate for bile duct dilatation, vomiting, diarrhea TECHNIQUE: A series of T1, T2 and diffusion-weighted sequences through the abdomen were performed both prior to and after the administration of 14 mL of Dotarem IV contrast. 3-D reconstructions of the biliary tree were performed on the MRI workstation. FINDINGS: Limitations: None Liver: No evidence of fatty liver infiltration. No evidence of a hepatic mass. Gallbladder and biliary tree: The gallbladder is absent. There is no intrahepatic biliary dilatation. The common bile duct measures up to 7 mm in diameter which is within normal limits in size for the patient's age. No filling defects are identified within the biliary tree to suggest choledocholithiasis. Adrenal glands: No adrenal mass. Spleen: No splenomegaly or splenic mass Pancreas: No pancreatic mass. No evidence of pancreatic divisum Kidneys: Kidneys enhance symmetrically. No hydronephrosis. There is a 1.4 cm simple cyst in the upper pole of the right kidney and a 0.7 cm cyst in the lower pole.. There is a 1.2 cm nonenhancing low T2 high T1 signal partially exophytic lesion in the upper pole of the left kidney consistent with a cyst complicated by hemorrhage or proteinaceous material. Aorta and vasculature: Abdominal aorta is normal in caliber. Celiac and superior mesenteric arteries are patent. The splenic, portal and superior mesenteric veins are patent. Lymph nodes: No enlarged abdominal lymph nodes. Other findings: No ascites. IMPRESSION: No intra or extrahepatic biliary dilatation. No evidence of choledocholithiasis. Left renal cyst. Burner Technician: PSCB Transcribe Date/Time: May 27 2019 1:18P Dictated by : RAY ROGERS MD This examination was interpreted and the report reviewed and electronically signed by: RAY ROGERS MD on May 27 2019 1:33PM EST Normal [facility] MRI PANC/KHANG WO/W IVCONon MRI PANC/KHANG WO/W IVCON * * *Final Report* * * DATE OF EXAM: May 26 2019 7:34PM LDM [id number] - MRI PANC/KHANG WO/W IVCON / PROCEDURE REASON: Right upper quadrant abdominal pain * * * * Physician Interpretation * * * * TITLE: MRCP OF THE ABDOMEN WITH IV CONTRAST with 3-D reconstructions DATE: 05/26/2019 COMPARISON: CT abdomen and pelvis 07/08/2016 INDICATION: Right upper quadrant abdominal pain, evaluate for bile duct dilatation, vomiting, diarrhea TECHNIQUE: A series of T1, T2 and diffusion-weighted sequences through the abdomen were performed both prior to and after the administration of 14 mL of Dotarem IV contrast. 3-D reconstructions of the biliary tree were performed on the MRI workstation. FINDINGS: Limitations: None Liver: No evidence of fatty liver infiltration. No evidence of a hepatic mass. Gallbladder and biliary tree: The gallbladder is absent. There is no intrahepatic biliary dilatation. The common bile duct measures up to 7 mm in diameter which is within normal limits in size for the patient's age. No filling defects are identified within the biliary tree to suggest choledocholithiasis. Adrenal glands: No adrenal mass. Spleen: No splenomegaly or splenic mass Pancreas: No pancreatic mass. No evidence of pancreatic divisum Kidneys: Kidneys enhance symmetrically. No hydronephrosis. There is a 1.4 cm simple cyst in the upper pole of the right kidney and a 0.7 cm cyst in the lower pole.. There is a 1.2 cm nonenhancing low T2 high T1 signal partially exophytic lesion in the upper pole of the left kidney consistent with a cyst complicated by hemorrhage or proteinaceous material. Aorta and vasculature: Abdominal aorta is normal in caliber. Celiac and superior mesenteric arteries are patent. The splenic, portal and superior mesenteric veins are patent. Lymph nodes: No enlarged abdominal lymph nodes. Other findings: No ascites. IMPRESSION: No intra or extrahepatic biliary dilatation. No evidence of choledocholithiasis. Left renal cyst. Burner Technician: PSCJarad Transcribe Date/Time: May 27 2019 1:18P Dictated by : RAY ROGERS MD This examination was interpreted and the report reviewed and electronically signed by: RAY ROGERS MD on May 27 2019 1:33PM EST Normal [facility] URINE ANUJ CULTURE-IDENTIFICA [place] ([id number])Ordered By: Size Marker on 04-09-2019 Bacteria identified Cx Nom (U) MUG Normal [facility] Work Phone: Comment on above: Mixed urogenital nita ra1,000 Colonies/mL PATIENT NOT FASTINGP ERFORMED BY: [facility] [id number] [facility]edCross[facility] [id number] Information: SRC:UC Bacteria identified Cx Nom (U) Final report Normal [facility] Work Phone: Comment on above: PATIENT NOT FASTINGP ERFORMED BY: [facility] [id number] Hameed [employer] SoftwareFormerly [facility] [id number] Information: SRC: Urinalysis, Office ([id number])Or dered By: Estelita Roth on 04-08-2019 Bilirubin Ql (U) Negative Normal [facility] Work Phone: Bilirubin Ql (U) Negative Normal [facility]; [facility] Work Phone: Glucose Test strip (U) [Mass/Vol] Negative Normal [facility] Work Phone: Glucose Test strip (U) [Mass/Vol] Negative Normal [facility]; [facility] Work Phone: Hemoglobin Ql (U) + Abnormal Com[facility] Work Phone: Ketones Ql (U) Negative Normal Comprehens [facility] Work Phone: Ketones Ql (U) Negative Normal Comprehens [facility]; [facility] Work Phone: Leukocyte esterase Test strip Ql (U) Small Normal [facility] Work Phone: Nitrite Ql (U) Negative Normal Comprehens [facility] Work Phone: Nitrite Ql (U) Negative Normal Comprehens [facility]; [facility] Work Phone: pH (U) 6 [pH] Abnormal [facility] Work Phone: Protein Ql (U) Negative Normal Comprehens [facility] Work Phone: Protein Ql (U) Negative Normal Comprehens [facility]; [facility] Work Phone: Specific gravity (U) [Rel density] 1.025 1 Normal [facility] Work Phone: Urobilinogen (24H U) [Mass/Time] Normal Normal [facility] Work Phone: Established Visit (Gastroent erology)on 03-17-2019 Established Visit (Gastroenterology) Diagnoses/Problems Assessed History of Cholecystectomy Abdominal bloating (787.3) (R14.0) Alternating constipation and diarrhea (787.99) (R19.8) Orders Alternating constipation and diarrhea Colonoscopy; Status:Hold For - Scheduling; Requested for:[id number]; Perform:Health system; Due:15Jun2019;Ordered; Stat; For:Alternating constipation and diarrhea; Ordered By:Santos Graham; Patient competent to provide consent? : Yes-pt mentally competent to provide consent Provider Impressions Symptoms is not compatible with sphincter of OD syndrome as symptoms are intermittent. I expressed to her that with sphincter of OD syndrome she would have pain nausea and anorexia following all meals. With her improvement following jesse watery diarrhea and then feeling well for 5 days it is more likely constipation driven. She does have a long history of intermittent constipation diarrhea consistent with IBS. Given her recent colon resection recommend we proceed with colonoscopy begin MiraLAX 17 g every morning, Metamucil at bedtime and continue Colace as needed. I did review lab work from her surgeon's office as well as her recent CT scan, endoscopy report and pathology. Chief Complaint PT HERE FOR 1 YEAR FOLLOW UP. SHE IS HERE ALONE. 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 PT IS EXPERIENCING BLOATING, NAUSEA, DIARRHEA, CONSTIPATION, AND VOMITING. TAKING ZOFRAN, BENTYL, AND OMEPRAZOLE. History of Present Illness Patient seen today with complaints of abdominal bloating, constipation followed by diarrhea. Approximately 1 year ago underwent colon resection for recurrent diverticulitis. She then underwent cholecystectomy within last year. Recently had upper endoscopy performed revealing gastritis. Was felt to have sphincter of Oddi symptoms but did not improve with Bentyl. Patient's symptoms seemed to improve dramatically after she has massive diarrhea then will feel well for about 5 days and the bloating and abdominal distress recurred. She denies any rectal bleeding. States she has no trouble moving stools but they change from soft to hard 2 large to spaghetti like noodle consistency and then jesse diarrhea. She is currently using occasional MiraLAX, Colace and laxatives to induce bowel movement. She has had long-standing problems with constipation beginning as an adolescent and there worsening since her colon resection. She denies any jesse rectal bleeding, melenic stools or vomiting no weight loss or constitutional symptoms. Review of Systems Constitutional: no fever, no chills, not feeling tired and no recent weight loss. ENT: no lymphadenopathy. Cardiovascular: no shortness of breath and no chest pain. Respiratory: no cough. Gastrointestinal: as noted in HPI. Musculoskeletal: no joint swelling. Integumentary: no rashes, no skin lesions and was no jaundiced. All other systems have been reviewed and are negative for complaint. 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) Surgical History Problems History of Cataract surgery History of Cholecystectomy History of Colectomy Partial History of Colonoscopy History of Esophagogastroduodenoscopy Managed By: Marisabel WELSL, Kasia Schmitz History of Knee arthroscopy History of Tonsillectomy Family History Mother Family history of malignant neoplasm of colon (V16.0) (Z80.0) Father Family history of malignant neoplasm of prostate (V16.42) (Z80.42) Brother Family history of malignant neoplasm of colon (V16.0) (Z80.0) Family history of neoplasm of brain (V19.8) (Z84.89) Social History Problems Denies alcohol consumption (V49.89) (Z78.9) Never a smoker No caffeine use No illicit drug use Patient has living will (V49.89) (Z78.9) Allergies Medication Codeine Recorded By: Kalina Arevalo; 03/17/2019 8:31:35 AM Additional reactions - Made me crazy NonMedication IV Contrast Dye Recorded By: Kalina Arevalo; 03/17/2019 8:31:35 AM Additional reactions - Rash, swelling Current Meds Medication NameInstruction Bentyl CAPS Echinacea CAPS Florajen Acidophilus CAPS Ibuprofen 800 MG Oral Tablet Lutein CAPS Multi Vitamin Oral Tablet [place] 3 1000 MG Oral Capsule Omeprazole 40 MG Oral Capsule Delayed Release Vitamin D3 TABS Zeaxanthin Powder Zofran 8 MG Oral Tablet Zoloft 50 MG Oral Tablet Vitals Vital Signs Recorded: 40Lkg2629 08:44AM Ynendhpc115 Kpntukdsk11 Height5 ft 5.5 in Iuityy534 lb BMI Hvkkmtgbyy82.75 BSA Calculated1.77 Physical Exam Constitutional General appearance: In no acute distress . Eyes Anicteric Sclerae . Pulmonary Auscultation of lungs: Clear. Cardiovascular Auscultation of heart: RRR without murmur. Examination of extremities for edema: Normal. Abdomen Soft, non-tender. Bowel sounds normal. No hepatomegaly or splenomegaly. Signatures Electronically signed by : Santos Graham DO; Mar 17 2019 3:31PM EST (Author) Normal Touchworks CBC & PLATELETS (AUTO) (8502 [id number])Ordered By: Size Marker on 10-12-2018 Erythrocyte distribution width (RBC) [Ratio] 13.1 % Normal 12.3-15.4 [facility] Work Phone: Comment on above: PATIENT NOT FASTINGP ERFORMED BY: [facility] [id number] Hematocrit (Bld) [Volume fraction] 37.0 % Normal 34.0-46.6 [facility] Work Phone: Comment on above: PATIENT NOT FASTINGP ERFORMED BY: [facility] [id number] Hemoglobin (Bld) [Mass/Vol] 12.7 g/dL Normal 11.1-15.9 [facility] Work Phone: Comment on above: PATIENT NOT FASTINGP ERFORMED BY: [employer] [place] [id number] MCH (RBC) [Entitic mass] 30.3 pg Normal 26.6-33.0 [facility] Work Phone: Comment on above: PATIENT NOT FASTINGP ERFORMED BY: DispopFormerly [facility] [id number] MCHC (RBC) [Mass/Vol] 34.3 g/dL Normal 31.5-35.7 [facility] Work Phone: Comment on above: PATIENT NOT FASTINGP ERFORMED BY: CB [facility] Nthyru6632 [address] RoadDublin [place] [id number] MCV (RBC) [Entitic vol] 88 fL Normal 79-97 [facility] Work Phone: Comment on above: PATIENT NOT FASTINGP ERFORMED BY: CB [facility] Alpeku7016 [address] RoadDublin [place] [id number] Platelets (Bld) [#/Vol] 255 {x10E3/uL} Normal 150-450 [facility] Work Phone: Comment on above: PATIENT NOT FASTINGP ERFORMED BY: CB [facility] Pncvkl5222 [address] RoadDublin [place] [id number] Platelets (Bld) [#/Vol] 255 10*3/uL Normal 150-450 [facility]; [facility] Work Phone: Comment on above: PATIENT NOT FASTINGP ERFORMED BY: CB [facility] Kvqedo1009 [address] RoadDublin [place] [id number] RBC (Bld) [#/Vol] 4.19 {x10E6/uL} Normal 3.77-5.28 [facility] Work Phone: Comment on above: PATIENT NOT FASTINGP ERFORMED BY: CB [facility] Rlxdkt0140 [address]Dublin [place] [id number] RBC (Bld) [#/Vol] 4.19 10*6/uL Normal 3.77-5.28 [facility]; [facility] Work Phone: Comment on above: PATIENT NOT FASTINGP ERFORMED BY: CB [facility] Xalzeq4977 [address] RoadDublin [place] [id number] WBC (Bld) [#/Vol] 6.5 {x10E3/uL} Normal 3.4-10.8 [facility] Internal Medicine Work Phone: Comment on above: PATIENT NOT FASTINGP ERFORMED BY: CB [facility] Rlqsof6212 [address]Dublin [place] [id number] WBC (Bld) [#/Vol] 6.5 10*3/uL Normal 3.4-10.8 [facility]; [facility] Work Phone: Comment on above: PATIENT NOT FASTINGP ERFORMED BY: JEANETH [facility] Dbpobm3760 [address]Dublin [place] [id number] METABOLIC PANEL, COMPREHENSI VE ([id number])Ordered By: Size Marker on 10-12-2018 Albumin [Mass/Vol] 4.4 g/dL Normal 3.5-4.8 [facility] Work Phone: Comment on above: PATIENT NOT FASTINGP ERFORMED BY: JEANETH [facility] Gybyup8239 [address]Dublin [place] [id number] Albumin/Globulin [Mass ratio] 1.5 {ratio} Normal 1.2-2.2 [facility] Work Phone: Comment on above: PATIENT NOT FASTINGP ERFORMED BY: JEANETH [facility] Vhordt9500 [address]Dublin [place] [id number] ALP [Catalytic activity/Vol] 78 [iU]/L Normal 39-117 [facility] Work Phone: Comment on above: PATIENT NOT FASTINGP ERFORMED BY: JEANETH [facility] Dyevzx9269 [address]Dublin [place] [id number] ALP [Catalytic activity/Vol] 78 U/L Normal 39-117 [facility]; [facility] Work Phone: Comment on above: PATIENT NOT FASTINGP ERFORMED BY: CB [facility] Discqn9628 [address] RoadDublin [place] [id number] ALT [Catalytic activity/Vol] 15 [iU]/L Normal 0-32 [facility] Work Phone: Comment on above: PATIENT NOT FASTINGP ERFORMED BY: CB [facility] Bxdhrm9423 [address] RoadDublin [place] [id number] ALT [Catalytic activity/Vol] 15 U/L Normal 0-32 [facility]; [facility] Work Phone: Comment on above: PATIENT NOT FASTINGP ERFORMED BY: CB [facility] Kecdrx7109 [address]Dublin [place] [id number] AST [Catalytic activity/Vol] 27 [iU]/L Normal 0-40 [facility] Work Phone: Comment on above: PATIENT NOT FASTINGP ERFORMED BY: CB [facility] Uthjif5430 [address] RoadDublin [place] [id number] AST [Catalytic activity/Vol] 27 U/L Normal 0-40 [facility]; [facility] Work Phone: Comment on above: PATIENT NOT FASTINGP ERFORMED BY: CB [facility] Lwganr0584 [address] RoadDublin [place] [id number] Bilirubin [Mass/Vol] 0.5 mg/dL Normal 0.0-1.2 [facility] Work Phone: Comment on above: PATIENT NOT FASTINGP ERFORMED BY: CB [facility] Xpabwb8232 [address]Dublin [place] [id number] Calcium [Mass/Vol] 9.4 mg/dL Normal 8.7-10.3 [facility] Work Phone: Comment on above: PATIENT NOT FASTINGP ERFORMED BY: CB [facility] Krsbzg0218 [address] RoadDublin [place] [id number] Chloride [Moles/Vol] 106 mmol/L Normal 96-106 [facility] Work Phone: Comment on above: PATIENT NOT FASTINGP ERFORMED BY: CB [facility] Djtcyq2480 [address]Dublin [place] [id number] CO2 [Moles/Vol] 23 mmol/L Normal 20-29 [facility] Internal [facility] Work Phone: Comment on above: PATIENT NOT FASTINGP ERFORMED BY: CB [facility] Pzywwj5743 [address] RoadDublin [place] [id number] Creatinine [Mass/Vol] 0.80 mg/dL Normal 0.57-1.00 [facility] Internal Medicine Work Phone: Comment on above: PATIENT NOT FASTINGP ERFORMED BY: CB [facility] Lqylvo1207 [address]Dublin [place] [id number] GFR/1.73 sq M predicted among blacks CKD-EPI (S/P/Bld) [Vol rate/Area] 82 mL/min/1.73 Normal [facility] Work Phone: Comment on above: PATIENT NOT FASTINGP ERFORMED BY: CB [facility] Weqxmn3123 [address]Dublin [place] [id number] GFR/1.73 sq M predicted among non-blacks CKD-EPI (S/P/Bld) [Vol rate/Area] 71 mL/min/1.73 Normal [facility] Work Phone: Comment on above: PATIENT NOT FASTINGP ERFORMED BY: CB [facility] Urqddj1485 [address] RoadDublin [place] [id number] Globulin (S) [Mass/Vol] 3.0 g/dL Normal 1.5-4.5 [facility] Work Phone: Comment on above: PATIENT NOT FASTINGP ERFORMED BY: CB [facility] Gcpfod6276 [address] RoadDublin [place] [id number] Glucose [Mass/Vol] 90 mg/dL Normal 65-99 [facility] Work Phone: Comment on above: PATIENT NOT FASTINGP ERFORMED BY: CB [facility] Txipck8980 [address]Dublin [place] [id number] Potassium [Moles/Vol] 4.6 mmol/L Normal 3.5-5.2 [facility] Work Phone: Comment on above: PATIENT NOT FASTINGP ERFORMED BY: CB [facility] Qtmvqo0838 [address] RoadDublin [place] [id number] Protein [Mass/Vol] 7.4 g/dL Normal 6.0-8.5 [facility] Work Phone: Comment on above: PATIENT NOT FASTINGP ERFORMED BY: CB [facility] Fvvnxc8340 [address] RoadDublin [place] [id number] Sodium [Moles/Vol] 142 mmol/L Normal 134-144 [facility] Work Phone: Comment on above: PATIENT NOT FASTINGP ERFORMED BY: CB [facility] Pcfwtn8751 [address]Dublin [place] [id number] Urea nitrogen [Mass/Vol] 16 mg/dL Normal 8-27 [facility] Work Phone: Comment on above: PATIENT NOT FASTINGP ERFORMED BY: JEANETH Gonzalez[address] Rococo SoftwareFormerly [facility] [id number] Urea nitrogen/Creatinine [Mass ratio] 20 mg/mg Normal 12-28 [facility] Work Phone: Comment on above: PATIENT NOT FASTINGP ERFORMED BY: JEANETH [facility] Fjdkfj[address] [email or web address] [id number] Sed Rate Erythrocyte (12093) Ordered By: Size Marker on 10-12-2018 ESR (Bld) [Velocity] 5 mm/h Normal 0-40 [facility] Work Phone: Comment on above: PATIENT NOT FASTINGP ERFORMED BY: JEANETH Diamondlin[address] [email or web address] [id number] MRI Abdomen w/ + w/o Contras ton 05-05-2017 MRI Abdomen w/ + w/o Contrast Exam Date/Time:05/05/2017 14:30 ESTReason for Exam:LEFT RENAL MASS;Other (please specify)ReportMRI Abdomen w/ + w/o Contrast 05/05/2017 1:53 PMIndication: Left renal massComparison: CT on 04/16/2017Pre and post MultiHance 13 mL IVThe left mid renal lesion in question is a nonenhancing hemorrhagic cyst, andthere is also a simple cyst in the left upper pole. No worrisome renal masses.Liver is unremarkable other than 2 small cysts. Unremarkable gallbladder. Nobiliary dilation. Unremarkable pancreas, spleen, and adrenals.No ascites or adenopathy. Major vessels are patent. In the left F83-L63tjztctofzmoz there is a 1.6 cm cystic structure possibly a perineural cyst.IMPRESSION:Left mid kidney hemorrhagic cyst and left upper pole simple cyst. No worrisomekidney lesions. Additional incidental findings described above. FINAL REPORT Dictated: 05/05/2017 4:22 pm Gilberto Ponce MD ISigned (Electronic Signature): 05/05/2017 4:22 pmSigned by: Gilberto Ponce MD, I Technologist: Leandro DOWNING [facility] US Abdomen, Limitedon 2017 US Abdomen, Limited Exam Date/Time:2017 08:47 ESTReason for Exam:Other (please specify)ReportUS Abdomen, LimitedCLINICAL STATEMENT: Right upper quadrant pain with vomiting and nausea for oneday.COMPARISON: No previous abdominal ultrasound studies. CT abdomen April.TECHNIQUE: Ultrasound of the abdomen was limited to the right upper quadrant.FINDINGS: The gallbladder appears normal with no intraluminal stones, sludge,or wall thickening. Liver echogenicity is generally uniform. No intrinsiclesions or intrahepatic biliary duct dilatation is shown. The 1 cm hypodenselesion in segment 4 of the liver on CT is not correlated on the ultrasoundstudy and is again nonspecific. The common bile duct measures 3 mm in diameter,within normal limits. The imaged portions of the pancreas appear normal. Thetail was obscured by overlying bowel gas. The right kidney was not studied indetail but the imaged portions showed no gross abnormality.No ascites is seen in the right upper quadrant.IMPRESSION:1. Normal appearance of the gallbladder.2. No evidence of biliary duct dilatation. FINAL REPORT Dictated: 05/02/2017 12:11 pm Marquis Muñoz DOSigned (Electronic Signature): 05/02/2017 12:11 pmSigned by: Marquis Muñoz DO Technologist: SHAUN Normal [facility] Auto Diffon 05-01-2017 Basophils Auto #/vol (Bld) 0.1 E3/mcL Normal 0.0-0.2 [facility] Comment on above: Order Comment: Order Added by Iftikhar Expert. Performed By: #### 2 [id number] ####ROCKY FhhZott2070 [place] [address] Basophils/100 WBC Auto (Bld) 1.1 % Normal 0.0-2.0 [facility] Comment on above: Order Comment: Order Added by Iftikhar Expert. Performed By: #### 2 [id number] ####ROCKY BaoTltx0481 [place] [address] Eos Absolute 0.1 E3/mcL Normal 0.0-0.7 [facility] Comment on above: Order Comment: Order Added by Discern Expert. Performed By: #### 2 666552 ####ROCKY RjcIhis4351 [place] [address] Eosinophils/100 leukocytes 1.6 % Normal 0.0-11.0 [facility] Comment on above: Order Comment: Order Added by Discern Expert. Performed By: #### 2 [id number] ####ROCKY MccoyScwVdlq1163 [place] [address] Lymphocytes 4.0 E3/mcL High 1.2-3.4 [facility] Comment on above: Order Comment: Order Added by Discern Expert. Performed By: #### 2 883299 ####ROCKY MccoyHksDeup3488 [place] [address] Lymphocytes/100 leukocytes 43.3 % Normal 20.0-55.0 [facility] Comment on above: Order Comment: Order Added by Discern Expert. Performed By: #### 2 461681 ####ROCKY MccoyLjqTmvz0275 [place] [address] [place]ah Absolute 0.6 E3/mcL Normal 0.0-0.7 [facility] Comment on above: Order Comment: Order Added by Discern Expert. Performed By: #### 2 623487 ####ROCKY MccoyHptQssu0674 [place] [address] Monocytes/100 leukocytes 6.3 % Normal 0.0-10.0 [facility] Comment on above: Order Comment: Order Added by Discern Expert. Performed By: #### 2 245469 ####ROCKY MccoyCswRinn6926 [place] [address] Neutro Absolute 4.4 E3/mcL Normal 1.4-6.5 [facility] Comment on above: Order Comment: Order Added by Discern Expert. Performed By: #### 2 436865 ####ROCKY VyzPcdk9944 [place] [address] Neutro Auto 47.7 % Normal 37.0-75.0 [facility] Comment on above: Order Comment: Order Added by Discern Expert. Performed By: #### 2 443374 ####ROCKY MccoyQoySqnr2810 [place] [address] BMPon 05-01-2017 BUN/Creatinine Ratio 12.2 ratio Normal 5.4-30.0 [facility] Comment on above: Performed By: #### 2 162263 ####ROCKY Pantoja1025 [place] [address] Creatinine 0.9 mg/dL Normal 0.6-1.3 [facility] Comment on above: Performed By: #### 2 686567 ####ROCKY Pantoja1025 [place] [address] Urea nitrogen 11 mg/dL Normal 7-18 [facility] Comment on above: Performed By: #### 2 360346 ####ROCKY Pantoja[address]25 [place] [address] Calcium 10.0 mg/dL Normal 8.4-10.2 [facility] Comment on above: Performed By: #### 2 630235 ####ROCKY Pantoja[address]25 [place] [address] Chloride 101 mmol/L Normal 98-107 [facility] Comment on above: Performed By: #### 2 006869 ####ROCKY RpoSxdf0010 [place] [address] CO2 27.3 mmol/L Normal 24.0-30.0 [facility] Comment on above: Performed By: #### 2 330923 ####ROCKY UakRgab3068 [place] [id number] Glucose mass conc 94 mg/dL Normal 70-99 [facility] Comment on above: Performed By: #### 2 031698 ####ROCKY JtiIrvu6433 [place] [address] Potassium molar conc 3.7 mmol/L Normal 3.5-5.1 [facility] Comment on above: Performed By: #### 2 409368 ####ROCKY MccoyAswRhmi5048 [place] [address] Sodium 138 mmol/L Normal 136-145 [facility] Comment on above: Performed By: #### 2 127265 ####ROCKY Pantoja1025 [place] [address] BNP.on 05-01-2017 BNP 27 pg/mL Normal <=100 [facility] Comment on above: Result Comment: Noti ce: Effective 09/18/2016 the methodology for BNP testing has changed. BNP values less than or equal to 100 pg/mL is considered normal for patients without CHF.The decision threshold was determined by the 95% confidence limit of BNP concentration in the non-CHF population age 55 and older.It is recommended that a new baseline value be established using the new method if monitoring patient's BNP level. Performed By: #### 1 [id number] ####ROCKY MccoyCclGdwx0232 [place] [id number] CBC w/ Auto Diffon Erythrocyte distribution width Auto Ratio (RBC) 13.6 % Normal 11.5-14.5 [facility] Comment on above: Performed By: #### 2 280144 ####ROCKY MccoyTprQrpm7001 [place] [id number] Erythrocytes (RBC) 4.63 E6/mcL Normal 3.90-5.40 [facility] Comment on above: Performed By: #### 2 657411 ####ROCKY NpkSmqp6122 [place] [address]68[address] Hematocrit (HCT) 40.2 % Normal 36.0-48.0 [facility] Comment on above: Performed By: #### 2 139061 ####ROCKY KbwPbuo3751 [place] [address] Hemoglobin mass conc (Bld) 13.3 g/dL Normal 12.0-16.0 [facility] Comment on above: Performed By: #### 2 907454 ####ROCKY VpiBurf9981 [place] [address] MCH 28.8 pg Normal 27.0-31.0 [facility] Comment on above: Performed By: #### 2 563489 ####ROCKY OcuLgwk4476 [place] [address] MCHC mass conc (RBC) 33.2 g/dL Normal 33.0-37.0 [facility] Comment on above: Performed By: #### 2 339314 ####ROCKY MtiYrys2745 [place] [address] MCV 86.8 fL Normal 78.0-100.0 [facility] Comment on above: Performed By: #### 2 909077 ####ROCKY WkoYytk4746 [place] [address] Platelet mean volume (PMV) 9.5 fL Normal 7.4-11.0 [facility] Comment on above: Performed By: #### 2 642769 ####ROCKY Floydo1025 [place] [address] Platelets 223 E3/mcL Normal 130-400 [facility] Comment on above: Performed By: #### 2 277882 ####ROCKY Floydo1025 [place] [address] WBC (Leukocytes) 9.2 E3/mcL Normal 3.6-11.0 [facility] Comment on above: Performed By: #### 2 709159 ####ROCKY Floydo1025 [place] [address] CKon 05-01-2017 Total CK 104 Int._Unit/L Normal 26-140 [facility] Comment on above: Performed By: #### 1 5878739 ####ROCKY Pantoja1025 [place] [address] Total CK 105 Int._Unit/L Normal 26-140 [facility] Comment on above: Performed By: #### 1 4833068 ####ROCKY MccoyQktMtoi3787 [place] [id number] CKMBon 05-01-2017 CKMB 1.4 ng/mL Normal 0.0-5.0 [facility] Comment on above: Performed By: #### 1 [id number] ####ROCKY P[address]ja[address]25 [place] [address] CKMB 1.5 ng/mL Normal 0.0-5.0 [facility] Comment on above: Performed By: #### 1 3922432 ####ROCKY MccoyBebEvgw7067 [place] [address] D-Dimeron 05-01-2017 D-Dimer 0.55 mg/L FEU Critically abnormal <=0.50 [facility] Comment on above: Result Comment: Crit ical Result DIMER:0.55 Called to MONIQUE JONES at: 04:53:45 by:CARTER Read back by:MONIQUE Corbett D Dimer level indicates no Deep Vein Thrombosis (DVT) or Pulmonary Embolism (PE).Elevated D Dimer level indicates additional studies and clinical assessments are indicated to conclude diagnosis of Deep Vein Thromobsis (DVT) or Pulmonary Embolism (PE). Performed By: #### 2 [id number] ####ROCKY Hematology Automated [address]yhcybmx1006 [place] [address] Hep Func Panelon 05-01-2017 Alanine aminotransferase (ALT) 15 Int._Unit/L Normal 10-40 [facility] Comment on above: Order Comment: Order added by Discern Expert. Performed By: #### 1 [id number] ####ROCKY SfrQhte3360 [place] [address] Albumin 4.0 g/dL Normal 3.2-5.0 [facility] Comment on above: Order Comment: Order added by Iftikhar Expert. Performed By: #### 1 [id number] ####ROCKY MhfKuyk2191 [place] [address] Albumin/Globulin Ratio 1.3 {ratio} Normal 1.1-1.9 [facility] Comment on above: Order Comment: Order added by Iftikhar Expert. Performed By: #### 1 [id number] ####ROCKY BayVpnq1403 [place] [address] Alk Phos 66 Int._Unit/L Normal 42-121 [facility] Comment on above: Order Comment: Order added by Iftikhar Expert. Performed By: #### 1 4113313 ####ROCKY EghEkve2807 [place] [address] Aspartate aminotransferase (AST) 26 Int._Unit/L Normal 10-42 [facility] Comment on above: Order Comment: Order added by Iftikhar Expert. Performed By: #### 1 [id number] ####ROCKY PrrMabv3102 [place] [address] Bili Direct <.10 Normal .00-.20 [facility] Comment on above: Order Comment: Order added by Iftikhar Expert. Performed By: #### 1 7049991 ####ROCKY ZncByko7364 [place] [address] Bili Indirect >0.7 Normal [facility] Comment on above: Order Comment: Order added by Discern Expert. Result Comment: No e stablished ranges available for the Indirect Biliruben. Performed By: #### 1 [id number] ####ROCKY Pantoja1025 [place] [address] Bili Total 0.8 mg/dL Normal 0.2-1.0 [facility] Comment on above: Order Comment: Order added by Discern Expert. Performed By: #### 1 7087469 ####ROCKY AvlNcuf4035 [place] [address] Globulin 3.1 g/dL Normal 2.0-4.0 [facility] Comment on above: Order Comment: Order added by Discern Expert. Performed By: #### 1 6492214 ####ROCKY P[address]ja[address] [place] [address] Protein 7.1 g/dL Normal 6.4-8.3 [facility] Comment on above: Order Comment: Order added by Discern Expert. Performed By: #### 1 [id number] ####ROCKY Pantoja1025 [place] [address] Troponin-Ion 05-01-2017 Troponin I.cardiac mass conc ng/mL Normal .00-. [facility] Comment on above: Performed By: #### 1 6069259 ####ROCKY Pantoja1025 [place] [address] Troponin I.cardiac mass conc 0.01 ng/mL Normal .00-.03 [facility] Comment on above: Performed By: #### 1 6227952 ####ROCKY Pantoja1025 [place] [address] Troponin I.cardiac mass conc ng/mL Normal .00-.03 [facility] Comment on above: Performed By: #### 2 102169 ####ROCKY MccoyHexRwgh9409 [place] [address] UA Completeon 05-01-2017 UA Blood Negative Normal Negative [facility] Comment on above: Performed By: #### 1 [id number] ####ROCKY MccoyUcdFxft3282 [place] [address] UA Clarity Clear Normal Clear [facility] Comment on above: Performed By: #### 1 1552339 ####ROCKY Pantoja1025 [place] [address] UA Leuk Est Negative Normal Negative [facility] Comment on above: Performed By: #### 1 2065985 ####ROCKYLaura PantojaNymPlja7907 [place] [address] UA Mucous Trace Abnormal Trace [facility] Comment on above: Performed By: #### 1 3076867 ####ROCKY OihGaqz9748 [place] [address] UA Nitrite Negative Normal Negative [facility] Comment on above: Performed By: #### 1 5948666 ####ROCKY QogPojr6375 [place] [address] UA pH 9.0 High 4.6-8.0 [facility] Comment on above: Performed By: #### 1 8079820 ####ROCKYLaura PantojaUluYcnr7054 [place] [address] UA Protein Negative Normal Negative [facility] Comment on above: Performed By: #### 1 4461797 ####[place] [address] UA Spec Grav 1.005 Normal 1.003-1.03 0 [facility] Comment on above: Performed By: #### 1 1337127 ####ROCKY YwmQihl7656 [place] [address] UA Squam Epithelial 0-5 Normal 0-5 [facility] Comment on above: Performed By: #### 1 6830377 ####ROCKY VmiSjrg1789 [place] [address] UA Urobilinogen Negative Normal [facility] Comment on above: Performed By: #### 1 3483365 ####ROCKY UuuDdrf8542 [place] [address] UA WBC 0-5 Normal 0-5 [facility] Comment on above: Performed By: #### 1 2037398 ####ROCKYLaura MccoyJviDrfm5577 [place] [address] Urine, color Straw Normal Yellow [facility] Comment on above: Performed By: #### 1 1518324 ####ROCKYLaura MccoyYwiHftf4378 [place] [address] Urine, erythrocytes 0-3 Normal 0-3 [facility] Comment on above: Performed By: #### 1 0412274 ####ROCKY MccoyGwhOkve1378 [place] [address] Urine, glucose Negative Normal Negative [facility] Comment on above: Performed By: #### 1 7795295 ####ROCKY MccoyJjnHond7127 [place] [address] Urine, ketones presence Negative Normal Negative [facility] Comment on above: Performed By: #### 1 7320123 ####ROCKY MccoyIrlWjdk9965 [place] [address] Urine, urobilinogen Negative Normal Negative [facility] Comment on above: Performed By: #### 1 5905531 ####ROCKY MccoyEpzUmhc0147 [place] [address] XR Chest Single Viewon 05-01 INR Coag RelTime (Bld) Exam Date/Time:05/01/2017 05:01 ESTReason for Exam:Chest painReportCHEST RADIOGRAPHCLINICAL HISTORY: Chest pain.COMPARISON: No relevant prior study available at time of interpretation.TECHNIQUE: XR Chest Single ViewFINDINGS: No pneumothorax, large pleural effusion, or focal consolidation.Overlying wires obscure the underlying structures. Unremarkablecardiomediastin al silhouette. No displaced fracture.IMPRESSION:No acute pulmonary abnormality. FINAL REPORT Dictated: 05/01/2017 5:40 am Tello Zelaya MD HSigned (Electronic Signature): 05/01/2017 5:40 amSigned by: Tello Zelaya MD Technologist: CLAY Reeves [facility] eGFRon 05-01-2017 eGFR (non-black) mL/min/{1.73_m2} Normal [facility] Comment on above: Order Comment: Order added by Discern Expert. Performed By: #### 1 [id number] ####ROCKY [address]ss[address] [place] [address] CT Abdomen/Pelvis w/ Contras ton 04-17-2017 CT Abdomen/Pelvis w/ Contrast Exam Date/Time:04/16/2017 16:46 ESTReason for Exam:PAIN ENTEROCOLIC FISTULA DIVERTICULAR DISEASE;PainReportCT OF ABDOMEN AND PELVIS WITH CONTRASTCLINICAL HISTORY: Abdominal pain.COMPARISON: No relevant prior study available at time of interpretation.TECHNIQUE: Axial CT images of the abdomen and pelvis were obtained followingadministration of 100 mL of Omnipaque 350 intravenous contrast and 900 mL ofGastroview oral contrast. Multiplanar 2-D reconstructed images were obtainedand reviewed.Dose reduction techniques were achieved by using: automated exposure controland/or adjustment of mA and /or kV according to patient size and/or use ofiterative reconstruction technique.FINDINGS:Lung bases: The imaged lung bases are clear. The heart size is normal.Liver/Gallbladder: Hepatic steatosis noted. The superior liver is notcompletely imaged on this exam. 1 cm indeterminate hepatic segment 4hypodensity is visualized. No abnormal intrahepatic ductal dilation is seen.The portal veins are contrast opacified. No CT evidence of acute cholecystitis.Spleen: Normal size.Stomach: Contrast is visualized within the distal esophagus. Small hiatalhernia is noted.Pancreas: No ductal dilation.Adrenal glands: Unremarkable bilaterally.Kidneys/ureters : There is indeterminate lesion measuring up to 1.2 cm at themidpole of the left kidney with questionable internal enhancement. Multipleindeterminate renal hypodensities are also visualized. No hydronephrosis,hydroureter, or ureteral calculus.Urinary bladder: Partially decompressed. Gas is visualized at the dome of theurinary bladder.Reproductive organs: Uterus is visualized. Please note that the adnexalstructures are suboptimally evaluated on CT exam.Bowel/appendix: The rectum is decompressed and suboptimally evaluated. Thedecompressed portions of the large bowel loops are suboptimally evaluated onthis exam. Postsurgical changes of partial colectomy noted. No CT evidence ofacute appendicitis. No evidence of small bowel obstruction. Moderate colonicstool burden noted.Peritoneum: No abscess or free air.Abdominal aorta: No evidence of aneurysm or dissection.Soft tissue: Unremarkable.Lymph nodes: No pathologically enlarged lymph nodes per CT size criteria.Bone: Multilevel degenerative changes of the visualized spine noted. Mildcompression deformity of T12 noted.Exam Date/Time:04/16/2017 16:46 ESTReportIMPRESSION:Conside r cystitis of the urinary bladder. This can be correlated withurinalysis.There is a solid-appearing 1.2 cm left renal lesion with questionable internalenhancement concerning for underlying neoplasm. Recommend further evaluationwith MRI of abdomen with and without contrast.Additional renal and hepatic hypodensities are also visualized. Attention onthe MRI exam.Moderate colonic stool burden is a nonspecific finding, however can be seen inthe setting of constipation versus mild ileus. There is no evidence for smallbowel obstruction.Hepatic steatosis.Nonspecific compression deformity of T12 is likely degenerative in etiology.Recommend correlation with point tenderness. FINAL REPORT Dictated: 04/16/2017 11:18 pm Tello Zelaya MDigned (Electronic Signature): 04/16/2017 11:18 pmSigned by: Tello Zelaya MD Technologist: SLB Normal [facility] BUNon 04-14-2017 Urea nitrogen 15 mg/dL Normal 7-18 [facility] Comment on above: Performed By: #### 2 [id number] ####ROCKY M[address]ra[address] [place] [address] Creatinineon 04-14-2017 Creatinine 0.8 mg/dL Normal 0.6-1.3 [facility] Comment on above: Performed By: #### 2 [id number] ####ROCKY MccoyT[address]ek[address] [place] [address] eGFRon 04-14-2017 eGFR (non-black) mL/min/{1.73_m2} Normal [facility] Comment on above: Order Comment: Order added by Discern Expert. Performed By: #### 1 [id number] ####ROCKY [address] [place] [id number] URINE ANUJ CULTURE-IDENTIFICA [place] ([id number])Ordered By: Size Marker on 03-17-2017 Bacteria identified Cx Nom (U) Klebsiella pneumoniae Abnormal Comprehens [facility] Work Phone: Comment on above: Greater than 100,000 colony forming units per mL PATIENT NOT FASTINGP ERFORMED BY: Outsmart [facility] [id number] Life 360Formerly [facility], [facility] [id number] Information: SRC:UC Bacteria identified Cx Nom (U) Final report Abnormal [facility] Work Phone: Comment on above: PATIENT NOT FASTINGP ERFORMED BY: IOD Incorporatedrp [id number] Life 360Formerly [facility], [facility] [id number] Information: SRC:UC Other Antibiotic [Susc] MIHEAD Normal [facility] Work Phone: Comment on above: S = Susceptible; I = Intermediate; R = Resistant P = Positive; N = Negative MICS are expressed in micrograms per mL Antibiotic RSLT#1 RSLT#2 RSLT#3 RSLT#4Amoxicillin/Clavulanic Acid SAmpicillin RCefepime SCeftriaxone SCefuroxime SCephalothin SCiprofloxacin SErtapenem SGentamicin SImipenem SLevofloxacin SNitrofurantoin RPiperacillin STetracycline RTobramycin STrimethoprim/Sulfa R PATIENT NOT FASTINGP ERFORMED BY: JEANETH [facility] Likpuq8464 [address] RoadDublin [place] [id number] Information: SRC:VANCE Urinalysis, Office ([id number])Or dered By: Danielle Pugh on 03-10-2017 Bilirubin Ql (U) Negative Normal [facility] Work Phone: Bilirubin Ql (U) Negative Normal [facility]; [facility] Work Phone: Glucose Test strip (U) [Mass/Vol] Negative Normal [facility] Work Phone: Glucose Test strip (U) [Mass/Vol] Negative Normal [facility]; [facility] Work Phone: Hemoglobin Ql (U) Hemolyzed Moderate Normal [facility] Work Phone: Ketones Ql (U) Negative Normal Comprehens [facility] Work Phone: Ketones Ql (U) Negative Normal Comprehens [facility]; [facility] Work Phone: Leukocyte esterase Test strip Ql (U) Moderate Normal [facility] Work Phone: Nitrite Ql (U) Negative Normal Comprehens [facility] Work Phone: Nitrite Ql (U) Negative Normal Comprehens [facility]; [facility] Work Phone: pH (U) 5 [pH] Abnormal [facility] Work Phone: Protein Ql (U) 30 mg/dL Normal Comprehens [facility] Work Phone: Specific gravity (U) [Rel density] 1.025 1 Normal [facility] Work Phone: Urobilinogen (24H U) [Mass/Time] Normal Normal [facility] Work Phone: URINE ANUJ CULTURE-IDENTIFICA [place] ([id number])Ordered By: Size Marker on 11-06-2016 Bacteria identified Cx Nom (U) Final report Abnormal [facility] Work Phone: Comment on above: PATIENT NOT FASTINGP ERFORMED BY: Droplet [id number] NanoLumensFormerly [facility], [facility] [id number] Information: SRC:VANCE Bacteria identified Cx Nom (U) ESCHFE Abnormal [facility] Work Phone: Comment on above: Escherichia vela ii25,000-50,000 colony forming units per mL S = Susceptible; I = Intermediate; R = Resistant P = Positive; N = Negative MICS are expressed in micrograms per mL Antibiotic RSLT#1 RSLT#2 RSLT#3 RSLT#4Amoxicillin/Clavulanic Acid SAmpicillin SCefepime SCeftriaxone SCefuroxime RCephalothin RCiprofloxacin SGentamicin SImipenem SNitrofurantoin STetracycline STobramycin STrimethoprim/Sulfa S PATIENT NOT FASTINGP ERFORMED BY: Droplet Camehp4330 NanoLumensFormerly [facility], [facility] [id number] Information: SRC:VANCE Urinalysis, Office ([id number])Or dered By: Mercedes Bey on 11-06-2016 Bilirubin Ql (U) Negative Normal [facility] Work Phone: Bilirubin Ql (U) Negative Normal [facility]; [facility] Work Phone: Glucose Test strip (U) [Mass/Vol] Negative Normal [facility] Work Phone: Glucose Test strip (U) [Mass/Vol] Negative Normal [facility]; [facility] Work Phone: Hemoglobin Ql (U) Hemolyzed Small Normal Co mprehensive [facility] Work Phone: Ketones Ql (U) Negative Normal Comprehens [facility] Work Phone: Ketones Ql (U) Negative Normal Comprehens [facility]; [facility] Work Phone: Leukocyte esterase Test strip Ql (U) Large Normal [facility] Work Phone: Nitrite Ql (U) Negative Normal Comprehens [facility] Work Phone: Nitrite Ql (U) Negative Normal Comprehens [facility]; [facility] Work Phone: pH (U) 7 [pH] Normal [facility] Work Phone: Protein Ql (U) Trace Normal Comprehens [facility] Work Phone: Specific gravity (U) [Rel density] 1.015 1 Normal [facility] Work Phone: Urobilinogen (24H U) [Mass/Time] Normal Normal [facility] Work Phone: URINE ANUJ CULTURE-IDENTIFICA [place] ([id number])Ordered By: Size Marker on 10-17-2016 Bacteria identified Cx Nom (U) Escherichia coli Abnormal [facility] Work Phone: Comment on above: Greater than 100,000 colony forming units per mL PATIENT NOT FASTINGP ERFORMED BY: JEANETH [facility] [id number] [facility] [id number] Information: SRC:UC Bacteria identified Cx Nom (U) Final report Abnormal [facility] Work Phone: Comment on above: PATIENT NOT FASTINGP ERFORMED BY: JEANETH [facility] Enenmm5813 [facility] [id number] Information: SRC:UC Other Antibiotic [Susc] MIHEAD Normal [facility] Work Phone: Comment on above: S = Susceptible; I = Intermediate; R = Resistant P = Positive; N = Negative MICS are expressed in micrograms per mL Antibiotic RSLT#1 RSLT#2 RSLT#3 RSLT#4Amoxicillin/Clavulanic Acid SAmpicillin SCefepime SCeftriaxone SCefuroxime SCephalothin SCiprofloxacin SErtapenem SGentamicin SImipenem SLevofloxacin SNitrofurantoin SPiperacillin STetracycline STobramycin STrimethoprim/Sulfa S; ADDENDA: susept. to macrobid PATIENT NOT FASTINGP ERFORMED BY: JEANETH [facility] Rsaxix[address] [place] [place] [id number] Information: SRC:VANCE Urinalysis, Office ([id number])Or dered By: Tamara Landin on 10-17-2016 Bilirubin Ql (U) Negative Normal [facility] Work Phone: Bilirubin Ql (U) Negative Normal Com[facility]; [facility] Work Phone: Glucose Test strip (U) [Mass/Vol] Negative Normal [facility] Work Phone: Glucose Test strip (U) [Mass/Vol] Negative Normal [facility]; [facility] Work Phone: Ketones Ql (U) Negative Normal Comprehens [facility] Work Phone: Ketones Ql (U) Negative Normal Comprehens [facility]; [facility] Work Phone: Leukocyte esterase Test strip Ql (U) Large Normal [facility] Work Phone: Nitrite Ql (U) Negative Normal Comprehens [facility] Work Phone: Nitrite Ql (U) Negative Normal Comprehens [facility]; [facility] Work Phone: pH (U) 6 [pH] Abnormal [facility] Work Phone: Protein Ql (U) Negative Normal Comprehens [facility] Work Phone: Protein Ql (U) Negative Normal Comprehens [facility]; [facility] Work Phone: Specific gravity (U) [Rel density] 1.015 1 Normal [facility] Work Phone: Urobilinogen (24H U) [Mass/Time] Normal Normal [facility] Work Phone: Fecal Occult Blood , Office ([id number])Ordered By: Jayesh Bejarano on 05-15-2016 Hemoglobin.gastroin testinal Ql (Stl) Negative Normal [facility] Work Phone: Hemoglobin.gastroin testinal Ql (Stl) Negative Normal [facility]; [facility] Work Phone: Metabolic Panel, Comprehensi ve ([id number])Ordered By: Size Marker on 05-15-2016 Albumin [Mass/Vol] 4.6 g/dL Normal 3.5-4.8 [facility] Work Phone: Comment on above: PATIENT NOT FASTINGP ERFORMED BY: CB [facility] Iehpaj7870 [address] RoadDublin [place] [id number] Albumin/Globulin [Mass ratio] 1.6 {ratio} Normal 1.1-2.5 [facility] Work Phone: Comment on above: PATIENT NOT FASTINGP ERFORMED BY: CB [facility] Bqsqur0276 [address] RoadDublin [place] [id number] ALP [Catalytic activity/Vol] 77 [iU]/L Normal 39-117 [facility] Work Phone: Comment on above: PATIENT NOT FASTINGP ERFORMED BY: CB [facility] Lgtphm9870 [address] RoadDublin [place] [id number] ALP [Catalytic activity/Vol] 77 U/L Normal 39-117 [facility]; [facility] Work Phone: Comment on above: PATIENT NOT FASTINGP ERFORMED BY: CB [facility] Jonjxo8247 [address] RoadDublin [place] [id number] ALT [Catalytic activity/Vol] 17 [iU]/L Normal 0-32 [facility] Work Phone: Comment on above: PATIENT NOT FASTINGP ERFORMED BY: CB [facility] Cdpqll2858 [address] RoadDublin [place] [id number] ALT [Catalytic activity/Vol] 17 U/L Normal 0-32 [facility]; [facility] Work Phone: Comment on above: PATIENT NOT FASTINGP ERFORMED BY: CB [facility] Cgfprk9002 [address] RoadDublin [place] [id number] AST [Catalytic activity/Vol] 28 [iU]/L Normal 0-40 [facility] Work Phone: Comment on above: PATIENT NOT FASTINGP ERFORMED BY: JEANETH [facility] Xkqoiq0582 [address] RoadDublin [place] [id number] AST [Catalytic activity/Vol] 28 U/L Normal 0-40 [facility]; [facility] Work Phone: Comment on above: PATIENT NOT FASTINGP ERFORMED BY: CB [facility] Tplray8970 [address] RoadDublin [place] [id number] Bilirubin [Mass/Vol] 0.5 mg/dL Normal 0.0-1.2 [facility] Work Phone: Comment on above: PATIENT NOT FASTINGP ERFORMED BY: CB [facility] Isydwb3433 [address]Dublin [place] [id number] Calcium [Mass/Vol] 9.6 mg/dL Normal 8.7-10.3 [facility] Work Phone: Comment on above: PATIENT NOT FASTINGP ERFORMED BY: CB [facility] Ksjomr7191 [address]blin [place] [id number] Chloride [Moles/Vol] 102 mmol/L Normal 96-106 [facility] Work Phone: Comment on above: PATIENT NOT FASTINGP ERFORMED BY: CB [facility] Xemici9091 [address] RoadDublin [place] [id number] CO2 [Moles/Vol] 23 mmol/L Normal 18-29 [facility] Work Phone: Comment on above: PATIENT NOT FASTINGP ERFORMED BY: CB [facility] Cghckk8155 [address]Dublin [place] [id number] Creatinine [Mass/Vol] 0.85 mg/dL Normal 0.57-1.00 [facility] Work Phone: Comment on above: PATIENT NOT FASTINGP ERFORMED BY: CB [facility] Bkghko2945 [address] RoadDublin [place] [id number] GFR/1.73 sq M predicted among blacks CKD-EPI (S/P/Bld) [Vol rate/Area] 78 mL/min/1.73 Normal [facility] Work Phone: Comment on above: PATIENT NOT FASTINGP ERFORMED BY: CB [facility] Lwcsgo2700 [address]Dublin [place] [id number] GFR/1.73 sq M predicted among non-blacks CKD-EPI (S/P/Bld) [Vol rate/Area] 67 mL/min/1.73 Normal [facility] Work Phone: Comment on above: PATIENT NOT FASTINGP ERFORMED BY: CB [facility] Qcftrw7829 [address] RoadDublin [place] [id number] Globulin (S) [Mass/Vol] 2.9 g/dL Normal 1.5-4.5 [facility] Work Phone: Comment on above: PATIENT NOT FASTINGP ERFORMED BY: CB [facility] Fbatbz3375 [address]Dublin [place] [id number] Glucose [Mass/Vol] 92 mg/dL Normal 65-99 [facility] Work Phone: Comment on above: PATIENT NOT FASTINGP ERFORMED BY: CB [facility] Rsiwld5579 [address]Dublin [place] [id number] Potassium [Moles/Vol] 4.4 mmol/L Normal 3.5-5.2 [facility] Work Phone: Comment on above: PATIENT NOT FASTINGP ERFORMED BY: CB [facility] Ywzqlq7107 [address]Dublin [place] [id number] Protein [Mass/Vol] 7.5 g/dL Normal 6.0-8.5 [facility] Work Phone: Comment on above: PATIENT NOT FASTINGP ERFORMED BY: CB [facility] Drexsh7883 [address]Dublin [place] [id number] Sodium [Moles/Vol] 142 mmol/L Normal 134-144 [facility] Work Phone: Comment on above: PATIENT NOT FASTINGP ERFORMED BY: CB [facility] Chnxwu2822 [address]Dublin [place] [id number] Urea nitrogen [Mass/Vol] 18 mg/dL Normal 8-27 [facility] Work Phone: Comment on above: PATIENT NOT FASTINGP ERFORMED BY: [facility] [id number] [facility] [id number] Urea nitrogen/Creatinine [Mass ratio] 21 mg/mg Normal - [facility] Work Phone: Comment on above: PATIENT NOT FASTINGP ERFORMED BY: [facility] Rdzsii7753 [facility] [id number] Urinalysis, Office ([id number])Or dered By: Danielle Pugh on 05-15-2016 Bilirubin Ql (U) Negative Normal Com[facility] Work Phone: Bilirubin Ql (U) Negative Normal Compre[facility]; [facility] Work Phone: Glucose Test strip (U) [Mass/Vol] Negative Normal [facility] Work Phone: Glucose Test strip (U) [Mass/Vol] Negative Normal [facility]; [facility] Work Phone: Hemoglobin Ql (U) Non Hemolyzed Trace Normal [facility] Work Phone: Ketones Ql (U) Negative Normal Comprehens [facility] Work Phone: Ketones Ql (U) Negative Normal Comprehens [facility]; [facility] Work Phone: Leukocyte esterase Test strip Ql (U) Moderate Normal [facility] Work Phone: Nitrite Ql (U) Negative Normal Comprehens [facility] Work Phone: Nitrite Ql (U) Negative Normal Comprehens [facility]; [facility] Work Phone: pH (U) 5 [pH] Abnormal [facility] Work Phone: Protein Ql (U) Negative Normal Comprehens [facility] Work Phone: Protein Ql (U) Negative Normal Comprehens [facility]; [facility] Work Phone: Specific gravity (U) [Rel density] 1.020 1 Normal [facility] Work Phone: Urobilinogen (24H U) [Mass/Time] Normal Normal [facility] Work Phone: URINE ANUJ CULTURE-IDENTIFICA [place] ([id number])Ordered By: Size Marker on 12-12-2015 Bacteria identified Cx Nom (U) MUG Normal [facility] Work Phone: Comment on above: Mixed urogenital nita ra10,000-25,000 colony forming units per mL PATIENT NOT FASTINGP ERFORMED BY: [facility] [id number] NanoLumensFormerly [facility] [id number] Information: SRC:VANCE Bacteria identified Cx Nom (U) Final report Normal [facility] Work Phone: Comment on above: PATIENT NOT FASTINGP ERFORMED BY: LabWeGamerp Gqtzew7158 NanoLumensFormerly [facility] [id number] Information: SRC:VANCE Urinalysis, Office ([id number])on 12-12-2015 Bilirubin Ql (U) Negative Normal Compre[facility] ns[facility] Work Phone: Bilirubin Ql (U) Negative Normal Compre[facility] ns[facility]; [facility] Work Phone: Glucose Test strip (U) [Mass/Vol] Negative Normal [facility] Work Phone: Glucose Test strip (U) [Mass/Vol] Negative Normal [facility]; [facility] Work Phone: Hemoglobin Ql (U) Non Hemolyzed Moderate Normal [facility] Work Phone: Ketones Ql (U) Negative Normal Comprehens [facility] Work Phone: Ketones Ql (U) Negative Normal Comprehens [facility]; [facility] Work Phone: Leukocyte esterase Test strip Ql (U) Trace Normal [facility] Work Phone: Nitrite Ql (U) Negative Normal Comprehens [facility] Work Phone: Nitrite Ql (U) Negative Normal Comprehens [facility]; [facility] Work Phone: pH (U) 6.0 [pH] Normal [facility] Work Phone: Comment on above: 5.5 Protein Ql (U) Negative Normal Comprehens [facility] Work Phone: Protein Ql (U) Negative Normal Comprehens [facility]; [facility] Work Phone: Specific gravity (U) [Rel density] 1.015 1 Normal [facility] Work Phone: Urobilinogen (24H U) [Mass/Time] Normal Normal [facility] Work Phone: URINE ANUJ CULTURE-LUIS EDUARDO COL C OUNT ([id number])Ordered By: Size Marker on 12-06-2015 Bacteria identified Cx Nom (U) MUG Normal [facility] Work Phone: Comment on above: Mixed urogenital nita ra10,000-25,000 colony forming units per mL PATIENT NOT FASTINGP ERFORMED BY: [employer] Spectral TechnologiesFormerly [facility], [facility] [id number] Information: [id number] SRC:VANCE Bacteria identified Cx Nom (U) Final report Normal [facility] Work Phone: Comment on above: PATIENT NOT FASTINGP ERFORMED BY: LabWeGamerp [facility] [place] [id number] Information: [id number] SRC:VANCE Urinalysis, Office ([id number])Or dered By: Mellisa Salguero on 12-06-2015 Bilirubin Ql (U) Negative Normal Compre[facility] Work Phone: Bilirubin Ql (U) Negative Normal Comprehe ns[facility]; [facility] Work Phone: Glucose Test strip (U) [Mass/Vol] Negative Normal [facility] Work Phone: Glucose Test strip (U) [Mass/Vol] Negative Normal [facility]; [facility] Work Phone: Hemoglobin Ql (U) non-hemolyzed trace Normal [facility] Work Phone: Ketones Ql (U) Negative Normal Comprehens [facility] Work Phone: Ketones Ql (U) Negative Normal Comprehens [facility]; [facility] Work Phone: Leukocyte esterase Test strip Ql (U) Negative Normal [facility] Work Phone: Leukocyte esterase Test strip Ql (U) Negative Normal [facility]; [facility] Work Phone: Nitrite Ql (U) Negative Normal Comprehens [facility] Work Phone: Nitrite Ql (U) Negative Normal Comprehens [facility]; [facility] Work Phone: pH (U) 6.0 [pH] Normal [facility] Work Phone: Comment on above: 5.5 Protein Ql (U) Negative Normal Comprehens [facility] Work Phone: Protein Ql (U) Negative Normal Comprehens [facility]; [facility] Work Phone: Specific gravity (U) [Rel density] 1.005 1 Normal [facility] Work Phone: Urobilinogen (24H U) [Mass/Time] Normal Normal [facility] Work Phone: URINE ANUJ CULTURE-IDENTIFICA TN ([id number])Ordered By: Size Marker on 11-23-2015 Bacteria identified Cx Nom (U) Escherichia coli Abnormal [facility] Work Phone: Comment on above: Greater than 100,000 colony forming units per mL PATIENT NOT FASTINGP ERFORMED BY: [employer] [facility] [id number] Information: [id number] Bacteria identified Cx Nom (U) Final report Abnormal [facility] Work Phone: Comment on above: PATIENT NOT FASTINGP ERFORMED BY: DispopFormerly [facility], later [facility] [id number] Information: [id number] Other Antibiotic [Susc] MIHEAD Normal [facility] Work Phone: Comment on above: S = Susceptible; I = Intermediate; R = Resistant P = Positive; N = Negative MICS are expressed in micrograms per mL Antibiotic RSLT#1 RSLT#2 RSLT#3 RSLT#4Amoxicillin/Clavulanic Acid SAmpicillin SCefepime SCeftriaxone SCefuroxime SCephalothin SCiprofloxacin SErtapenem SGentamicin SImipenem SLevofloxacin SNitrofurantoin SPiperacillin STetracycline STobramycin STrimethoprim/Sulfa S PATIENT NOT FASTINGP ERFORMED BY: JEANETH [facility] [id number]Dublin [place] [id number] Information: [id number] Urinalysis, Office ([id number])on 11-23-2015 Bilirubin Ql (U) Negative Normal [facility] Work Phone: Bilirubin Ql (U) Negative Normal [facility]; [facility] Work Phone: Glucose Test strip (U) [Mass/Vol] Negative Normal [facility] Work Phone: Glucose Test strip (U) [Mass/Vol] Negative Normal [facility]; [facility] Work Phone: Hemoglobin Ql (U) Non Hemolyzed Moderate Normal [facility] Work Phone: Ketones Ql (U) Negative Normal Comprehens [facility] Work Phone: Ketones Ql (U) Negative Normal Comprehens [facility]; [facility] Work Phone: Leukocyte esterase Test strip Ql (U) Small Normal [facility] Work Phone: Nitrite Ql (U) Positive Normal [facility] Work Phone: Nitrite Ql (U) Positive Normal [facility]; [facility] Work Phone: pH (U) 6.0 [pH] Normal [facility] Work Phone: Comment on above: 5.5 Protein Ql (U) Trace Normal [facility] Work Phone: Specific gravity (U) [Rel density] 1.025 1 Normal [facility] Work Phone: Urobilinogen (24H U) [Mass/Time] Normal Normal [facility] Work Phone: OCT MACULA CIRRUS OU (BOTH E YES) [facility] Vital Signs Date Time Vital Sign Value Performing Clinician Facility 02-26-2024 11:53-0500 Body height 165.1 cm Tadeo Napoles MD Work Phone: [facility] 02-26-2024 11:53-0500 Body mass index (BMI) [Ratio] 21.13 kg/m2 Tadeo Napoles MD Work Phone: [facility] 02-26-2024 11:53-0500 Body weight 57.61 kg Tadeo Napoles MD Work Phone: [facility] 02-26-2024 11:53-0500 Diastolic blood pressure 89 mm[Hg] Tadeo Napoles MD Work Phone: [facility] 02-26-2024 11:53-0500 Heart rate 80 /min Tadeo Napoles MD Work Phone: [facility] 02-26-2024 11:53-0500 Systolic blood pressure 170 mm[Hg] Tadeo Napoles MD Work Phone: [facility] 07-08-2023 13:09-0400 Body height 165.1 cm Federico Jade MD Work Phone: [facility] 07-08-2023 13:09-0400 Body weight 65.32 kg Federico Jade MD Work Phone: [facility] 07-08-2023 13:09-0400 Diastolic blood pressure 91 mm[Hg] Federico Jade MD Work Phone: [facility] 07-08-2023 13:09-0400 Heart rate 77 /min Federico Jade MD Work Phone: [facility] 07-08-2023 13:09-0400 SaO2% (BldA) [Mass fraction] 98 % Federico Jade MD Work Phone: [facility] 07-08-2023 13:09-0400 Systolic blood pressure 153 mm[Hg] Federico Jade MD Work Phone: [facility] 12-05-2022 13:29-0400 Body height 165.1 cm KELBY Armando MIKE [facility]; [facility] Work Phone: 12-05-2022 13:29-0400 Body mass index (BMI) [Ratio] 25.13 kg/m2 KELBY Armadno MIKE [facility]; [facility] Work Phone: 12-05-2022 13:29-0400 Body surface area Derived from formula 1.76 m2 KELBY Armando MIKE [facility]; [facility] Work Phone: 12-05-2022 13:29-0400 Body temperature 97.9 [degF] KELBY Armando MIKE [facility]; [facility] Work Phone: Comment on above: Method: Temporal 12-05-2022 13:29-0400 Body weight 68.49 kg KELBY Armando MIKE [facility]; [facility] Work Phone: 12-05-2022 13:29-0400 Diastolic blood pressure 78 mm[Hg] KELBY Armando MIKE [facility]; [facility] Work Phone: Comment on above: Patient Position: Sitting; Cuff Location : Left Arm; Cuff Size: Standard 12-05-2022 13:29-0400 Heart rate 89 /min KELBY Armando MIKE [facility]; [facility] Work Phone: Comment on above: Pattern: Regular 12-05-2022 13:29-0400 Respiratory rate 18 /min KELBY Armando MIKE [facility]; [facility] Work Phone: Comment on above: Pattern: Unlabored 12-05-2022 13:29-0400 SaO2% (BldA) [Mass fraction] 98 % KELBY Armando MIKE [facility]; [facility] Work Phone: Comment on above: Room air 12-05-2022 13:29-0400 Systolic blood pressure 120 mm[Hg] KELBY Armando MIKE [facility]; [facility] Work Phone: Comment on above: Patient Position: Sitting; Cuff Location : Left Arm; Cuff Size: Standard 11-20-2022 10:10-0400 Body height 165.1 cm Mellisa Slarb [employer] [facility]; [facility] Work Phone: 11-20-2022 10:10-0400 Body mass index (BMI) [Ratio] 25.21 kg/m2 Mellisa Slarb [employer] [facility]; [facility] Work Phone: 11-20-2022 10:10-0400 Body surface area Derived from formula 1.76 m2 Mellisa Slarb [employer] [facility]; [facility] Work Phone: 11-20-2022 10:10-0400 Body temperature 98.7 [degF] Mellisa Slarb [employer] [facility]; [facility] Work Phone: Comment on above: Method: Temporal 11-20-2022 10:10-0400 Body weight 68.72 kg Mellisa Slarb [employer] [facility]; [facility] Work Phone: 11-20-2022 10:10-0400 Diastolic blood pressure 80 mm[Hg] Mellisa Slarb [employer] [facility]; [facility] Work Phone: Comment on above: Patient Position: Sitting; Cuff Location : Left Arm; Cuff Size: Standard 11-20-2022 10:10-0400 Heart rate 67 /min Mellisa Slarb [employer] [facility]; [facility] Work Phone: Comment on above: Pattern: Regular 11-20-2022 10:10-0400 Respiratory rate 17 /min Mellisa Slarb [employer] [facility]; [facility] Work Phone: Comment on above: Pattern: Unlabored 11-20-2022 10:10-0400 SaO2% (BldA) [Mass fraction] 98 % Mellisa Slarb [employer] [facility]; [facility] Work Phone: Comment on above: Room air 11-20-2022 10:10-0400 Systolic blood pressure 124 mm[Hg] Mellisa Slarb [employer] [facility]; [facility] Work Phone: Comment on above: Patient Position: Sitting; Cuff Location : Left Arm; Cuff Size: Standard 04-25-2022 13:23-0500 Diastolic blood pressure 88 mm[Hg] Andria Steve DO Work Phone: [facility]; [facility] Work Phone: Comment on above: Patient Position: Sitting hi stress -- caregiv er for 04-25-2022 13:23-0500 Heart rate 90 /min Andria Steve DO Work Phone: [facility]; [facility] Work Phone: Comment on above: Pattern: Regular hi stress -- caregiv er for 04-25-2022 13:23-0500 Systolic blood pressure 140 mm[Hg] Andria Steve DO Work Phone: [facility]; [facility] Work Phone: Comment on above: Patient Position: Sitting hi stress -- caregiv er for 05-01-2020 10:38-0500 Body height 165.1 cm [facility]; [facility] Work Phone: 05-01-2020 10:38-0500 Body mass index (BMI) [Ratio] 25.21 kg/m2 [facility]; [facility] Work Phone: 05-01-2020 10:38-0500 Body surface area Derived from formula 1.76 m2 [facility]; [facility] Work Phone: 05-01-2020 10:38-0500 Body weight 68.72 kg [facility]; [facility] Work Phone: 02-10-2020 13:43-0500 BMI (Body Mass Index) 25.21 kg/m2 Estelita Roth [facility] Work Phone: 02-10-2020 13:43-0500 Body Temperature 97.7 [degF] Estelita Roth [facility] Work Phone: Comment on above: Method: Temporal 02-10-2020 13:43-0500 Body weight 68.72 kg Estelita Roth [facility] Work Phone: 02-10-2020 13:43-0500 BP Diastolic 96 mm[Hg] Estelita Roth [employer] [facility] Work Phone: Comment on above: Patient Position: Sitting; Cuff Location : Left Arm; Cuff Size: Standard 02-10-2020 13:43-0500 BP Systolic 161 mm[Hg] Estelita Roth [facility] Work Phone: Comment on above: Patient Position: Sitting; Cuff Location : Left Arm; Cuff Size: Standard 02-10-2020 13:43-0500 BSA (Body Surface Area) 1.76 m2 Estelita Roth [facility] Work Phone: 02-10-2020 13:43-0500 Height 165.1 cm Estelita Roth [facility] Work Phone: 02-10-2020 13:43-0500 Pulse (Heart Rate) 96 /min [facility] Work [facility]: Comment on above: Pattern: Regular 02-10-2020 13:43-0500 Pulse Oximetry 95 % Andria Sylvain [facility] Internal Medicine Work Phone: Comment on above: Room air 02-10-2020 13:43-0500 Respiratory Rate 16 /min Estelita Roth [facility] Work Phone: Comment on above: Pattern: Unlabored 02-10-2020 13:43-0500 SaO2% (BldA) [Mass fraction] 95 % Estelitasurya Roth [facility]; [facility] Work Phone: Comment on above: Room air 01-20-2020 09:43-0400 BMI (Body Mass Index) 25.21 kg/m2 Lily Acuña [facility] Work Phone: 01-20-2020 09:43-0400 Body Temperature 96.8 [degF] Lily Acuña [facility] Work Phone: Comment on above: Method: Thermal Scan 01-20-2020 09:43-0400 Body weight 68.72 kg Lily Acuña [facility] Work Phone: 01-20-2020 09:43-0400 BP Diastolic 101 mm[Hg] Lily Acuña [facility] Work Phone: Comment on above: Patient Position: Sitting; Cuff Location : Left Arm; Cuff Size: Standard 01-20-2020 09:43-0400 BP Systolic 158 mm[Hg] Lily Domenico [facility] Work Phone: Comment on above: Patient Position: Sitting; Cuff Location : Left Arm; Cuff Size: Standard 01-20-2020 09:43-0400 BSA (Body Surface Area) 1.76 m2 Lily Domenico [facility] Work Phone: 01-20-2020 09:43-0400 Height 165.1 cm Lily Domenico [facility] Work Phone: 01-20-2020 09:43-0400 Pulse (Heart Rate) 94 /min Lily Acuña [facility] Com[facility] e [facility] Work Phone: Comment on above: Pattern: Regular 01-20-2020 09:43-0400 Pulse Oximetry 98 % Andria Steve [facility] Medicine Work Phone: Comment on above: Room air 01-20-2020 09:43-0400 Respiratory Rate 18 /min Lily Domenico [facility] Work Phone: Comment on above: Pattern: Unlabored 01-20-2020 09:43-0400 SaO2% (BldA) [Mass fraction] 98 % Lily Domenico [facility]; [facility] Work Phone: Comment on above: Room air 04-08-2019 14:17-0500 BMI (Body Mass Index) 25.54 kg/m2 Estelita Roth [facility] Work Phone: 04-08-2019 14:17-0500 Body Temperature 97.2 [degF] Estelitasurya Roth [facility] Work Phone: Comment on above: Method: Temporal 04-08-2019 14:17-0500 Body weight 69.63 kg Estelita Roth LPN [facility] Work Phone: 04-08-2019 14:17-0500 BP Diastolic 98 mm[Hg] Estelita Roth LPN [facility] Work Phone: Comment on above: Patient Position: Sitting; Cuff Location : Left Arm; Cuff Size: Standard 04-08-2019 14:17-0500 BP Systolic 140 mm[Hg] Estelita Roth LPN [facility] Medicine Work Phone: Comment on above: Patient Position: Sitting; Cuff Location : Left Arm; Cuff Size: Standard 04-08-2019 14:17-0500 BSA (Body Surface Area) 1.77 m2 Estelita Roth LPN [facility] Internal Medicine Work Phone: 04-08-2019 14:17-0500 Height 165.1 cm Estelita Roth LPN [facility] Medicine Work Phone: 04-08-2019 14:17-0500 Pulse (Heart Rate) 86 /min [facility] Work Phone: Comment on above: Pattern: Regular 04-08-2019 14:17-0500 Pulse Oximetry 96 % Andria Steve [facility] Work Phone: Comment on above: Room air 04-08-2019 14:17-0500 Respiratory Rate 16 /min Estelita Roth LPN [facility] Work Phone: Comment on above: Pattern: Unlabored 04-08-2019 14:17-0500 SaO2% (BldA) [Mass fraction] 96 % Estelita Roth LPN [facility]; [facility] Work Phone: Comment on above: Room air 10-12-2018 13:08-0400 BMI (Body Mass Index) 26.33 kg/m2 Melissa Navarro [facility] Work Phone: 10-12-2018 13:08-0400 Body Temperature 97 [degF] Melissa Navarro [facility] Work Phone: Comment on above: Method: Oral 10-12-2018 13:08-0400 Body weight 71.78 kg Melissa Navarro [facility] Work Phone: 10-12-2018 13:08-0400 BP Diastolic 82 mm[Hg] Melissa Navarro [facility] Work Phone: Comment on above: Patient Position: Sitting; Cuff Location : Left Arm; Cuff Size: Standard 10-12-2018 13:08-0400 BP Systolic 124 mm[Hg] Melissa Navarro [facility] Work Phone: Comment on above: Patient Position: Sitting; Cuff Location : Left Arm; Cuff Size: Standard 10-12-2018 13:08-0400 BSA (Body Surface Area) 1.79 m2 Melissa Navarro [facility] Work Phone: 10-12-2018 13:08-0400 Height 165.1 cm Melissa Navarro [facility] Work Phone: 10-12-2018 13:08-0400 Pulse (Heart Rate) 64 /min Melissa Navarro [facility] Work Phone: Comment on above: Pattern: Regular 10-12-2018 13:08-0400 Pulse Oximetry 97 % Andria Sylvain [facility] Work Phone: Comment on above: Room air 10-12-2018 13:08-0400 Respiratory Rate 18 /min Melissa Navarro [facility] Work Phone: Comment on above: Pattern: Unlabored 10-12-2018 13:08-0400 SaO2% (BldA) [Mass fraction] 97 % Melissa Navarro [facility]; [facility] Work Phone: Comment on above: Room air 03-10-2017 13:09-0500 BMI (Body Mass Index) 26.33 kg/m2 Mercedes Bey RN [facility] Work Phone: 03-10-2017 13:09-0500 Body weight 71.78 kg Mercedes Bey RN [facility] Work Phone: 03-10-2017 13:09-0500 BP Diastolic 80 mm[Hg] Mercedes Bey RN [facility] Work Phone: Comment on above: Patient Position: Sitting; Cuff Location : Left Arm; Cuff Size: Large 03-10-2017 13:09-0500 BP Systolic 140 mm[Hg] Mercedes Bey RN [facility] Work Phone: Comment on above: Patient Position: Sitting; Cuff Location : Left Arm; Cuff Size: Large 03-10-2017 13:09-0500 BSA (Body Surface Area) 1.79 m2 Mercedes Bey RN [facility] Work Phone: 03-10-2017 13:09-0500 Height 165.1 cm Mercedes Bey RN [facility] Work Phone: 03-10-2017 13:09-0500 Pulse (Heart Rate) 70 /min Mercedes Bey RN [facility] Work Phone: Comment on above: Pattern: Regular 03-10-2017 13:09-0500 Pulse Oximetry 98 % Andria Sylvain [facility] Work Phone: Comment on above: Room air 03-10-2017 13:09-0500 Respiratory Rate 18 /min Mercedes Bey RN [facility] Work Phone: Comment on above: Pattern: Unlabored 03-10-2017 13:09-0500 SaO2% (BldA) [Mass fraction] 98 % Mercedes Bey RN [facility]; [facility] Work Phone: Comment on above: Room air 11-06-2016 08:59-0400 BMI (Body Mass Index) 26.65 kg/m2 Danielle Pugh CMA [facility] Work Phone: 11-06-2016 08:59-0400 Body weight 72.63 kg Danielle Pugh CMA [facility] Work Phone: 11-06-2016 08:59-0400 BP Diastolic 78 mm[Hg] Danielle Pugh CMA [facility] Work Phone: Comment on above: Patient Position: Sitting; Cuff Location : Left Arm; Cuff Size: Standard 11-06-2016 08:59-0400 BP Systolic 122 mm[Hg] Danielle Pugh [facility] Work Phone: Comment on above: Patient Position: Sitting; Cuff Location : Left Arm; Cuff Size: Standard 11-06-2016 08:59-0400 BSA (Body Surface Area) 1.8 m2 Daniellemendel Pugh [facility] Work Phone: 11-06-2016 08:59-0400 Height 165.1 cm [facility] Work Phone: 11-06-2016 08:59-0400 Pulse (Heart Rate) 69 /min [facility] Work Phone: Comment on above: Pattern: Regular 11-06-2016 08:59-0400 Pulse Oximetry 96 % Andria Steve [facility] Work Phone: Comment on above: Room air 11-06-2016 08:59-0400 Respiratory Rate 16 /min [facility] Work Phone: Comment on above: Pattern: Unlabored 11-06-2016 08:59-0400 SaO2% (BldA) [Mass fraction] 96 % [facility]; [facility] Work Phone: Comment on above: Room air 10-17-2016 13:06-0400 BMI (Body Mass Index) 26.81 kg/m2 Mercedes Bey RN [facility] Work Phone: 10-17-2016 13:06-0400 Body weight 73.09 kg Mercedes Bey RN [facility] Work Phone: 10-17-2016 13:06-0400 BP Diastolic 78 mm[Hg] Mercedes Bey RN [facility] Work Phone: Comment on above: Patient Position: Sitting; Cuff Location : Left Arm; Cuff Size: Standard 10-17-2016 13:06-0400 BP Systolic 128 mm[Hg] Mercedes Bey RN [facility] Work Phone: Comment on above: Patient Position: Sitting; Cuff Location : Left Arm; Cuff Size: Standard 10-17-2016 13:06-0400 BSA (Body Surface Area) 1.8 m2 Mercedes Bey RN [facility] Work Phone: 10-17-2016 13:06-0400 Height 165.1 cm Mercedes Bey RN [facility] Work Phone: 10-17-2016 13:06-0400 Pulse (Heart Rate) 78 /min Mercedes Bey RN [facility] Work Phone: Comment on above: Pattern: Regular 10-17-2016 13:06-0400 Pulse Oximetry 97 % Andria Steve [facility] Work Phone: Comment on above: Room air 10-17-2016 13:06-0400 Respiratory Rate 18 /min Mercedes Bey RN [facility] Work Phone: Comment on above: Pattern: Unlabored 10-17-2016 13:06-0400 SaO2% (BldA) [Mass fraction] 97 % Mercedes Bey RN [facility]; [facility] Work Phone: Comment on above: Room air 08-08-2016 10:23-0400 BMI (Body Mass Index) 28.52 kg/m2 [facility] Work Phone: Comment on above: but just took tramadol 08-08-2016 10:23-0400 Body Temperature 98 [degF] [facility] Work Phone: Comment on above: but just took tramadol 08-08-2016 10:23-0400 Body weight 77.74 kg [facility] Work Phone: Comment on above: but just took tramadol 08-08-2016 10:23-0400 BP Diastolic 76 mm[Hg] [facility] Work Phone: Comment on above: Patient Position: Sitting; Cuff Location : Left Arm; Cuff Size: Standard but just took tramad ol 08-08-2016 10:23-0400 BP Systolic 132 mm[Hg] [facility] Work Phone: Comment on above: Patient Position: Sitting; Cuff Location : Left Arm; Cuff Size: Standard but just took tramad ol 08-08-2016 10:23-0400 BSA (Body Surface Area) 1.85 m2 [facility] Work Phone: Comment on above: but just took tramadol 08-08-2016 10:23-0400 Height 165.1 [facility] Work Phone: Comment on above: but just took tramadol 08-08-2016 10:23-0400 Pulse (Heart Rate) 88 /min [facility] Work Phone: Comment on above: Pattern: Regular but just took tramad ol 08-08-2016 10:23-0400 Pulse Oximetry 99 % Andria Steve [facility] Work Phone: Comment on above: Room air but just took tramad ol 08-08-2016 10:23-0400 Respiratory Rate 16 /min [facility] Work Phone: Comment on above: Pattern: Unlabored but just took tramad ol 08-08-2016 10:23-0400 SaO2% (BldA) [Mass fraction] 99 % [facility]; [facility] Work Phone: Comment on above: Room air but just took tramad ol 05-22-2016 14:57-0500 BMI (Body Mass Index) 28.85 kg/m2 Mercedes Bey RN [facility] Work Phone: 05-22-2016 14:57-0500 Body weight 78.64 kg Mercedes Bey RN [facility] Work Phone: 05-22-2016 14:57-0500 BP Diastolic 98 mm[Hg] Mercedes Bey RN [facility] Work Phone: Comment on above: Patient Position: Sitting; Cuff Location : Left Arm; Cuff Size: Large 05-22-2016 14:57-0500 BP Systolic 158 mm[Hg] Mercedes Bey RN [facility] Work Phone: Comment on above: Patient Position: Sitting; Cuff Location : Left Arm; Cuff Size: Large 05-22-2016 14:57-0500 BSA (Body Surface Area) 1.86 m2 Mercedes Bey RN [facility] Work Phone: 05-22-2016 14:57-0500 Height 165.1 cm Mercedes Bey RN [facility] Work Phone: 05-22-2016 14:57-0500 Pulse (Heart Rate) 79 /min Mercedes Bey RN [facility] Work Phone: Comment on above: Pattern: Regular 05-22-2016 14:57-0500 Pulse Oximetry 95 % Andria Steve [facility] Work Phone: Comment on above: Room air 05-22-2016 14:57-0500 Respiratory Rate 18 /min Mercedes Bey RN [facility] Work Phone: Comment on above: Pattern: Unlabored 05-22-2016 14:57-0500 SaO2% (BldA) [Mass fraction] 95 % Mercedes Bey RN [facility]; [facility] Work Phone: Comment on above: Room air 05-15-2016 13:05-0500 BMI (Body Mass Index) 28.62 kg/m2 Mellisa Rafarb [employer] [facility] Work Phone: 05-15-2016 13:05-0500 Body Temperature 98.2 [degF] Mellisa Rafarb [employer] [facility] Work Phone: 05-15-2016 13:05-0500 Body weight 78.02 kg Mellisa Rafarb [employer] [facility] Work Phone: 05-15-2016 13:05-0500 BP Diastolic 82 mm[Hg] Mellisa Slarb [employer] [facility] Work Phone: Comment on above: Patient Position: Sitting; Cuff Location : Left Arm; Cuff Size: Standard 05-15-2016 13:05-0500 BP Systolic 128 mm[Hg] Mellisa Slarb [employer] [facility] Work Phone: Comment on above: Patient Position: Sitting; Cuff Location : Left Arm; Cuff Size: Standard 05-15-2016 13:05-0500 BSA (Body Surface Area) 1.86 m2 Mellisa Slarb [employer] [facility] Work Phone: 05-15-2016 13:05-0500 Height 165.1 cm Mellisa Noemy MC[facility] Work Phone: 05-15-2016 13:05-0500 Pulse (Heart Rate) 107 /min Mellisa Noemy [facility] Work Phone: Comment on above: Pattern: Regular 05-15-2016 13:05-0500 Pulse Oximetry 95 % Andriablas Steve [facility] Work Phone: Comment on above: Room air 05-15-2016 13:05-0500 Respiratory Rate 16 /min Mellisa Noemy [facility] Work Phone: Comment on above: Pattern: Unlabored 05-15-2016 13:05-0500 SaO2% (BldA) [Mass fraction] 95 % Mellisa Noemy [facility]; [facility] Work Phone: Comment on above: Room air 12-29-2015 11:50-0400 BMI (Body Mass Index) 28.5 kg/m2 Mercedes Bey RN [facility] Work Phone: Comment on above: hearing wnlDr at and had a glaucoma t est done 12-29-2015 11:50-0400 Body weight 77.68 kg Mercedes Bey RN [facility] Work Phone: Comment on above: hearing wnlDr at [facility] and had a glaucoma t est done 12-29-2015 11:50-0400 BP Diastolic 80 mm[Hg] Mercedes Bey RN [facility] Work Phone: Comment on above: Patient Position: Sitting; Cuff Location : Left Arm; Cuff Size: Large hearing wnlDr at [facility] and had a glaucoma test done 12-29-2015 11:50-0400 BP Systolic 122 mm[Hg] Mercedes Bey RN [facility] Work Phone: Comment on above: Patient Position: Sitting; Cuff Location : Left Arm; Cuff Size: Large hearing wnlDr at [facility] and had a glaucoma test done 12-29-2015 11:50-0400 BSA (Body Surface Area) 1.85 m2 Mercedes Bey RN [facility] Work Phone: Comment on above: hearing wnlDr at and had a glaucoma t est done 12-29-2015 11:50-0400 Height 165.1 cm Mercedes Bey RN [facility] Work Phone: Comment on above: hearing wnlDr at and had a glaucoma t est done 12-29-2015 11:50-0400 Pulse (Heart Rate) 67 /min Mercedes Bey RN Comprehens [facility] Internal Medicine Work Phone: Comment on above: Pattern: Regular hearing wnlDr at and had a glaucoma test done 12-29-2015 11:50-0400 Pulse Oximetry 97 % Andria Steve [facility] Work Phone: Comment on above: Room air hearing wnlDr at and had a glaucoma test done 12-29-2015 11:50-0400 Respiratory Rate 18 /min Mercedes Bey RN [facility] Work Phone: Comment on above: Pattern: Unlabored hearing wnlDr at and had a glaucoma test done 12-29-2015 11:50-0400 SaO2% (BldA) [Mass fraction] 97 % Mercedes Bey RN [facility]; [facility] Work Phone: Comment on above: Room air hearing wnlDr at and had a glaucoma test done 12-12-2015 09:08-0400 BMI (Body Mass Index) 28.35 kg/m2 Danielle Pugh [facility] Work Phone: 12-12-2015 09:08-0400 Body Temperature 97.6 [degF] Danielle Pugh [facility] Work Phone: Comment on above: Method: Temporal 12-12-2015 09:08-0400 Body weight 77.28 kg Danielle Pugh [facility] Work Phone: 12-12-2015 09:08-0400 BP Diastolic 80 mm[Hg] Danielle Pugh [facility] Work Phone: Comment on above: Patient Position: Sitting; Cuff Location : Left Arm; Cuff Size: Standard 12-12-2015 09:08-0400 BP Systolic 130 mm[Hg] Danielle Pugh [facility] Work Phone: Comment on above: Patient Position: Sitting; Cuff Location : Left Arm; Cuff Size: Standard 12-12-2015 09:08-0400 BSA (Body Surface Area) 1.85 m2 Danielle Pugh [facility] Work Phone: 12-12-2015 09:08-0400 Height 165.1 cm Danielle Pugh [facility] Internal Medicine Work Phone: 12-12-2015 09:08-0400 Pulse (Heart Rate) 73 /min Danielle Pugh [facility] Internal Medicine Work Phone: Comment on above: Pattern: Regular 12-12-2015 09:08-0400 Pulse Oximetry 98 % Andria Steve [facility] Internal Medicine Work Phone: Comment on above: Room air 12-12-2015 09:08-0400 Respiratory Rate 16 /min Danielle Pugh [facility] Work Phone: Comment on above: Pattern: Unlabored 12-12-2015 09:08-0400 SaO2% (BldA) [Mass fraction] 98 % Danielle Pugh [facility]; [facility] Work Phone: Comment on above: Room air 12-06-2015 13:17-0400 Pulse Oximetry 98 % Andria Steve [facility] Internal Medicine Work Phone: Comment on above: Room air 12-06-2015 13:17-0400 SaO2% (BldA) [Mass fraction] 98 % Adrian Ross MD Work Phone: [facility]; [facility] Work Phone: Comment on above: Room air 12-06-2015 12:23-0400 BMI (Body Mass Index) 28.35 kg/m2 Tamara Landin RN [facility] Work Phone: 12-06-2015 12:23-0400 Body Temperature 98.4 [degF] Tamara Landin RN [facility] Work Phone: Comment on above: Method: Temporal 12-06-2015 12:23-0400 Body weight 77.28 kg Tamara Landin RN [facility] Work Phone: 12-06-2015 12:23-0400 BP Diastolic 76 mm[Hg] Tamara Landin RN [facility] Work Phone: Comment on above: Patient Position: Sitting; Cuff Location : Left Arm; Cuff Size: Standard 12-06-2015 12:23-0400 BP Systolic 138 mm[Hg] Tamara Landin RN [facility] Work Phone: Comment on above: Patient Position: Sitting; Cuff Location : Left Arm; Cuff Size: Standard 12-06-2015 12:23-0400 BSA (Body Surface Area) 1.85 m2 Tamara Landin RN [facility] Work Phone: 12-06-2015 12:23-0400 Height 165.1 cm Tamara Landin RN [facility] Work Phone: 12-06-2015 12:23-0400 Pulse (Heart Rate) 92 /min Tamara Landin RN [facility] Work Phone: Comment on above: Pattern: Regular 12-06-2015 12:23-0400 Pulse Oximetry 92 % Andria Setve [facility] Work Phone: Comment on above: Room air 12-06-2015 12:23-0400 Respiratory Rate 16 /min Tamara Landin RN [facility] Work Phone: Comment on above: Pattern: Unlabored 12-06-2015 12:23-0400 SaO2% (BldA) [Mass fraction] 92 % Tamara Landin RN [facility]; [facility] Work Phone: Comment on above: Room air 11-23-2015 09:45-0400 BMI (Body Mass Index) 28.35 kg/m2 Andria Sylvain [facility] Work Phone: 11-23-2015 09:45-0400 Body Temperature 97.1 [degF] Andria Steve [facility] Work Phone: Comment on above: Method: Tympanic 11-23-2015 09:45-0400 Body weight 77.28 kg Andria Steve [facility] Work Phone: 11-23-2015 09:45-0400 BP Diastolic 68 mm[Hg] Andria Steve [facility] Work Phone: Comment on above: Patient Position: Sitting; Cuff Location : Left Arm; Cuff Size: Standard 11-23-2015 09:45-0400 BP Systolic 142 mm[Hg] Andria Steve [facility] Work Phone: Comment on above: Patient Position: Sitting; Cuff Location : Left Arm; Cuff Size: Standard 11-23-2015 09:45-0400 BSA (Body Surface Area) 1.85 m2 Andria Steve [facility] Work Phone: 11-23-2015 09:45-0400 Height 165.1 cm Andria Steve [facility] Work Phone: 11-23-2015 09:45-0400 Pulse (Heart Rate) 80 /min Andria Steve [facility] Work Phone: Comment on above: Pattern: Regular 11-23-2015 09:45-0400 Pulse Oximetry 97 % Andria Steve [facility] Work Phone: Comment on above: Room air 11-23-2015 09:45-0400 Respiratory Rate 18 /min Andria Steve [facility] Work Phone: Comment on above: Pattern: Unlabored 11-23-2015 09:45-0400 SaO2% (BldA) [Mass fraction] 97 % Andria Steve DO Work Phone: [facility]; [facility] Work Phone: Comment on above: Room air Encounters Encounter Date Encounter Type Care Provider Facility Start: 02-16-2025 Encounter for genera l adult medical examination with abnormal findings Andria Steve [facility] Start: 02-16-2025 End: 02-16-2025 ambulatory Andriablas Steve [place] [place]: 10-26-2024 ambulatory Andriablas Steve Facilit y:[facility] Start: 10-20-2024 ambulatory ANDRIA STEVE Facility:[facility] Start: 10-20-2024 End: 10-20-2024 Subsequent hospital visit by physician Mri Radio [facility] Wstr (I-Stat/1.5t) Work Phone: Radiology Start: 08-03-2024 End: 08-06-2024 Evaluation and management of inpatient Andria Steve Facility:[facility] Start: 08-03-2024 ambulatory Andria Steve Facilit y:[facility] Start: 05-14-2024 End: 05-17-2024 Refill Tadeo Napoles MD Work Phone: [facility] Start: 02-26-2024 End: 02-26-2024 Office outpatient new 45 minutes Tadeo Napoles MD Work Phone: [facility] Comment on above: Idiopathic neuropath y (Primary Dx); Restless legs syndrome with nocturnal myoclonus; Sleep related leg cramps; Fatigue, unspecified type Start: 02-26-2024 End: 02-26-2024 ambulatory [facility] Start: 07-08-2023 End: 07-08-2023 Patient encounter procedure Federico Jade MD Work Phone: General Surgery Comment on above: SBO (small bowel obs truction) (HCC) (Primary Dx) Start: 06-16-2023 End: 06-19-2023 Evaluation and management of inpatient MAXINE KALEIGH Facility:[facility] Start: 06-16-2023 End: 06-16-2023 Emergency department patient visit ANDRIA STEVE Facility:[facility] Start: 02-24-2023 End: 02-24-2023 ambulatory [facility] Work Phone: Start: 02-24-2023 End: 02-24-2023 Patient encounter procedure [facility] Work Phone: Start: 02-21-2023 End: 02-21-2023 ambulatory [facility] Work Phone: Start: 02-21-2023 End: 02-21-2023 Patient encounter procedure [facility]-MRI - [facility] Work Phone: Start: 02-04-2023 End: 02-04-2023 ambulatory [facility] Work Phone: Start: 02-04-2023 End: 02-04-2023 Patient encounter procedure [facility]-Cat Scan, [facility] Work Phone: Start: 01-14-2023 End: 01-14-2023 ambulatory [facility] Work Phone: Start: 01-14-2023 End: 01-14-2023 Patient encounter procedure [facility]-Ultrasound, [facility] Work Phone: Start: 12-16-2022 End: 12-16-2022 Phone Encounter Andria Ascencioon DO Work Phone: [facility] Start: 12-13-2022 End: 12-13-2022 Annotation/Addendum Andria Sylvain DO Work Phone: [facility] Start: 12-06-2022 End: 12-06-2022 Phone Encounter Andria Sylvain DO Work Phone: [facility] Start: 12-05-2022 End: 12-05-2022 Office outpatient visit 15 minutes Andria Sylvain DO Work Phone: [facility] Start: 11-20-2022 End: 11-24-2022 Nursing evaluation of patient and report Andria Sylvain DO Work Phone: [facility] Start: 11-20-2022 End: 11-20-2022 ambulatory [facility] Work Phone: Start: 11-20-2022 End: 11-20-2022 Patient encounter procedure [facility]-Laboratory, Specimen Work Phone: Start: 11-20-2022 Review Andria Ascencioo n DO Work Phone: [facility] Start: 11-20-2022 End: 11-20-2022 Office outpatient visit 15 minutes Andria Sylvain DO Work Phone: [facility] Start: 10-23-2022 End: 10-23-2022 Annotation/Addendum Andira Steve DO Work Phone: [facility] Start: 04-25-2022 ambulatory Andriablas Steve DO Comp rehensive Internal Med Start: 04-25-2022 End: 04-25-2022 Office outpatient visit 15 minutes Andria Steve DO Work Phone: [facility] Start: 12-07-2021 End: 12-07-2021 Patient encounter procedure Leatha Olsonjayashree OD Work Phone: Ophthalmology Comment on above: Subconjunctival hemo rrhage, left (Primary Dx); Dry eyes Start: 07-13-2021 End: 07-13-2021 Patient encounter procedure Leatha Olsonjayashree OD Work Phone: Ophthalmology Comment on above: Ophthalmic migraine (Primary Dx); Dry eyes; PVD (posterior vitreous detachment), both eyes; Choroidal nevus of right eye Start: 04-23-2021 End: 04-23-2021 Phone Encounter Andria Steve DO Work Phone: [facility] Start: 02-14-2021 End: 02-14-2021 Phone Encounter Andria Steve DO Work Phone: [facility] Start: 05-01-2020 End: 05-01-2020 Office outpatient visit 10 minutes Andria Steve DO Work Phone: [facility] Start: 02-10-2020 End: 02-10-2020 Office outpatient visit 25 minutes Andria Sylvain [facility] Start: 01-25-2020 End: 01-25-2020 Annotation/Addendum Andria Sylvain [facility] Start: 01-20-2020 End: 01-20-2020 Office outpatient visit 15 minutes Andria Steve [facility] Start: 01-20-2020 Review Andria Steve Compreh ensive Internal Medicine Start: 04-19-2019 End: 04-19-2019 Phone Encounter Andria Sylvain [facility] Start: 04-08-2019 End: 04-08-2019 Office outpatient visit 25 minutes Andria Steve [facility] Start: 10-13-2018 End: 10-14-2018 Phone Encounter Andria Levin [facility] Start: 10-12-2018 End: 10-12-2018 Office outpatient visit 15 minutes Andria Levin Internal Medicine Start: 01-20-2018 End: 01-20-2018 Annotation/Addendum Andria Levin [facility] Start: 12-18-2017 End: 12-18-2017 Phone Encounter Andria Sylvain Levin [facility] Start: 05-09-2017 End: 05-09-2017 Ambulatory Santos R Stefre [facility] [facility] Start: 05-05-2017 End: 05-06-2017 Ambulatory Santos R Santos Facility:[facility] Start: 05-01-2017 End: 05-02-2017 Ambulatory Andria Steve Facility:[facility] Start: 05-01-2017 End: 05-01-2017 Ambulatory Santos Monae Santos Facility:[facility] Graham DO Start: 04-16-2017 End: 04-17-2017 Ambulatory Santos R Stefre Facility:[facility] Start: 04-14-2017 End: 04-15-2017 Ambulatory Santos R Stefre Facility:[facility] Start: 04-09-2017 End: 04-10-2017 Ambulatory Santos R Santos Facility:[facility] Santos Start: 03-21-2017 End: 03-21-2017 Phone Encounter Andria Levin [facility] Start: 03-10-2017 End: 03-10-2017 Office outpatient visit 40 minutes Andria Levin Internal Medicine Start: 01-16-2017 End: 01-16-2017 Ambulatory Scott Mares Facility:[facility] Start: 11-06-2016 End: 11-06-2016 Office outpatient visit 25 minutes Andria Levin Internal Medicine Start: 10-17-2016 End: 10-17-2016 Periodic preventive med est patient 40-64yrs Andria Levin Internal Medicine Start: 08-08-2016 End: 08-08-2016 Office outpatient visit 10 minutes Andria Steve [facility] Start: 05-22-2016 End: 05-22-2016 Office outpatient visit 25 minutes Andria Steve [facility] Start: 05-15-2016 End: 05-15-2016 Office outpatient visit 15 minutes Andria Sylvain [facility] Start: 05-15-2016 End: 05-15-2016 Office outpatient visit 5 minutes Andriablas Ascencioon [facility] Internal Medicine Start: 12-29-2015 End: 12-29-2015 Patient encounter procedure Andria Steve DO Work Phone: [facility] Start: 12-29-2015 End: 12-29-2015 Periodic preventive med est patient 65yrs& older Andria Sylvain [facility] Start: 12-12-2015 End: 12-12-2015 Office outpatient visit 15 minutes Andria Sylvain [facility] Start: 12-06-2015 End: 12-06-2015 Patient encounter procedure Andria Ascencioon [facility] Start: 12-01-2015 End: 12-01-2015 Phone Encounter Andriablas Ascencioon [facility] Manager [facility] Medicine Start: 11-23-2015 End: 11-23-2015 Patient encounter procedure Andria Sylvain [facility] Patient encounter procedure Lily Acuña [facility]; [facility] Work Phone: Patient encounter procedure Aliciarhina Ignram [facility]; [facility] Work Phone: Patient encounter procedure Mellisalaura Salguero [facility]; [facility] Work Phone: Patient encounter procedure KELBY Tr [facility]; [facility] Work Phone: Procedures Date Procedure Procedure Detail Performing Clinician Start: 02-21-2023 MRI of abdomen with contrast Start: 02-04-2023 Computed tomography of abdomen and pelvis with contrast Start: 01-14-2023 End: 01-14-2023 Kidney and Bladder Procedure Note: See Note; NOTES: [facility] Imaging Services [address] [place] [address] Kidney and Bladder MR#: [id number] Acct: [id number] Name: MARY LI Rep #: [id number] : [id number] F 82 From: Isidro Mauro MD PCP: Dr. Andria Steve, DO Status: REG CLI Study: Kidney and Bladder Date of Exam: 01/14/23 Exam# [id number] Ordering Dr: Evonne Lara MD 2:[id number] EXAM: US RETROPERITONEAL LIMITED, RENAL CLINICAL INDICATION: UTI TECHNIQUE: Limited grayscale and color Doppler sonographic evaluation of the retroperitoneum was performed. COMPARISON: No relevant prior studies available. FINDINGS: RIGHT KIDNEY: There is mild right-sided hydronephrosis. Right kidney measures 11.2 x 4.7 x 4.5 cm. The right renal cortex measures 1.4 cm. No shadowing calculus. No perinephric collection is demonstrated. LEFT KIDNEY: The left kidney measures 10.3 x 4.7 x 4.8 cm. The left renal cortex measures 1.5 cm. There are anechoic structures in the left kidney that measures 1.6 x 1.3 x 1 6 cm and 1.7 x 1.4 x 1.7 cm compatible with cysts. No hydronephrosis. No shadowing calculus. No perinephric collection is demonstrated. BLADDER: The bladder measures 7.3 x 10.0 x 9.7 cm for volume of 369 mL. The urinary bladder wall measures 3 mm. US/Kidney and Bladder IMPRESSION: Mild right-sided hydronephrosis. There are left-sided renal cysts. No other abnormalities are identified. Electronically Signed: Isidro Mauro MD at 23:54 EDT , CC: Dr. Evonne Lara MD; Dr. Andria Steve DO Burner Technician: Signed Evonne Lara Work Phone: Start: 01-14-2023 US urinary tract Start: 07-13-2021 Computerized ophthalmic imaging retina Leatha Cassidy OD Work Phone: Start: 04-14-2019 End: 04-14-2019 Surgery Visit Report Comments: See Note; NOTES: [facility] [address] [place] [address]. [address] [place] [address] OFFICE VISIT Date of Service: 04/12/19 MR#: [id number] Acct: [id number] Name: MARY LI Rep #: [id number] : 1940 Provider: Kasia Petit MD Age/Sex: 78/F Location: [facility] Status: Signed Intake Vital Signs04/12/19 BMI 25.7 04/12/19 Pulse 75 04/12/19 Pulse Oximetry (%) 99 Intake Visit Reasons: PAIN/CONSTIPATION Chief Complaint: emesis/bloating Resource Development Director Required: No Is patient in pain?: No Allergies iohexol Allergy (Verified 04/12/19 08:48) Hives codeine Adverse Reaction (Verified 04/12/19 08:48) Nausea/Vom/Diarrhea omnipaque dyes for xrays Allergy (Intermediate, Uncoded 11/11/18 11:21) Hives Medications echinacea 400 mg capsule 400 mg PO PRN PRN 10/15/18 [History Confirmed 04/12/19] ibuprofen 200 mg tablet 200 mg PO PRN PRN 10/15/18 [History Confirmed 04/12/19] lutein 40 mg capsule 120 mg PO DAILY cap 10/15/18 [History Confirmed 04/12/19] omega-3 fatty acids 1,000 mg capsule 1,000 mg PO DAILY 10/15/18 [History Confirmed 04/12/19] Calcium Carb/Vitamin D3/Vit K1 [Calcium + D Soft Chewable Tab] 1 ea PO DAILY 10/19/18 [History Confirmed 04/12/19] Multivitamin with Minerals [Multiple Vitamin] 1 ea PO DAILY 10/19/18 [History Confirmed 04/12/19] Sertraline HCl [Zoloft] 50 mg PO DAILY 11/04/18 [History Confirmed 04/12/19] dicyclomine 20 mg tablet 20 mg PO TID 90 Days #270 tab 11/30/18 [Rx Confirmed 04/12/19] omeprazole 40 mg capsule,delayed release 40 mg PO DAILY #90 cap 11/30/18 [Rx Confirmed 04/12/19] famotidine 20 mg tablet 20 mg PO BID #180 tab 04/12/19 [Rx Confirmed 04/12/19] Is last menstrual period known: No Post menopausal: Yes Patient : No PFSH Medical History Gallbladder polyp (Acute) Cholesterolosis (Acute) Acid reflux (Acute) Diarrhea (Acute) Nausea AND vomiting (Acute) Abdominal pain (Acute) Sleep apnea (Acute) Arthritis (Acute) History of back problems (Acute) Surgical History (Updated 04/12/19 @ 08:47 by Rufina Lopes) Hx laparoscopic cholecystectomy (Acute) History of open sigmoidectomy (Chronic) History of colonoscopy (Acute) history excision colon polyps (Acute) History of arthroscopy of left knee (Acute) History of colonoscopy (Acute 2019) Family History Father Cancer prostate Brother Cancer brain Seizures Mother Colon cancer Social History (Updated 04/14/19 @ 13:49 by Kasia Petit MD) Smoking Status: Never smoker alcohol intake: never substance use type: does not use HPI HPI HPI: MARY LI, is a 78 F who presents to the office today for cycle of day of bloating/nausea and vomiting and improvement over the next 8 to 9 days with a repeat the cycle. Patient has tried to take Bentyl during the time of bloating nausea and vomiting however has not noticed much of a difference. Patient states she has been taking at least 20 g of fiber she still only count of having smaller bowel movements daily. Patient states that she will start to get bloated and increase gas just prior to the nausea and vomiting coming on and then she will have multiple episodes of vomiting and after that she will slowly get better over the next few days and after about 8 or 9 days this cycle will repeat. Patient did have a cholecystectomy with cholangiograms back in November 2018 for biliary dyskinesia. 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 Patient does state that her symptoms have improved since having her gallbladder removed and she also had an EGD prior to surgery has been placed on omeprazole 40 mg p.o. daily which again has improved some of her symptoms. Patient has also been having some issues with dysuria previously had been on Bactrim for UTI which was a while ago. Patient is currently getting a repeat urine culture per her PCP. Patient did have a repeat scope in [place] at about 2 to 3 weeks ago which was normal as she had a history of an open sigmoidectomy due for colovesical fistula. Patient denies any difference in the cycle even after going through colon prep it still occurred about the same time it normally would. HPI HPI HPI: MARY LI, is a 78 F who presents to the office today for ROS General General: Yes fatigue; no weight change, colon cancer, breast cancer or weakness HEENT HEENT: No difficulty swallowing, eye injury, eye surgery, swollen glands or hoarseness Endo Endocrine: No thyroid disease, diabetes mellitus, thyroid cancer, Hair loss, heat intolerance or cold intolerance Skin Skin: No rash or changing moles Musc Musculoskeletal: Yes back problems and arthritis; no rheumatoid arthritis, gout or joint pain Cardio Cardiovascular: No murmur, pacemaker, heart disease, atrial fibrillation, high blood pressure, heart attack, heart stent, palpitations, shortness of breat with exertion or chest pain Psych Psychiatric: Yes depression and anxiety; no hearing voices Resp Respiratory: No shortness of breath, Yes sleep apnea, No cough, No COPD, No asthma, No emphysema, No wheezing Gastro Gastrointestinal: Yes abdominal pain, Yes nausea or vomiting, Yes diarrhea, Yes constipation, No blood in stool, Yes acid reflux, No hemorrhoids, No ulcers, Yes gallbladder problem, No black,tarry stools [place] Hematologic: No blood thinners, No blood disorders, No bleeding, No anemia, No blood clots Neuro Neurologic: No weakness Exam Const General: cooperative, comfortable, no acute distress Resp Effort AND Inspection: normal respiratory effort Cardio Rate: regular rate Heart Sounds: no murmurs GI Inspection: non-distended, incision (Midline incision well-healed) Palpation: soft, no guarding, no hernias, nontender Assessment AND Plan Problems 1. Abdominal bloating R14.0 2. Nausea AND vomiting R11.2 3. Hx laparoscopic cholecystectomy Z90.49 11/11/18 Plan Discussed with patient that I am not sure a gastric emptying study or small bowel follow-through would show anything as patient has about 8 or 9 good days and then the one bad day and patient states she is unable to leave the house during her bad day. Patient would like to see someone about a possible sphincter of Oddi dysfunction and see if that could possibly be the cause of her symptoms. Did discuss with patient this would be's GI specialist at a tertiary care center-patient is okay with the referral. Greater than 50% of direct patient contact was spent in counseling or coordination of care. I spent 25 minutes counseling the patient and coordinating care. Kasia Petit M.D. Pager: [phone] [facility] [address] [place] [address], [address] [place] [address] Office: [phone] Medications New: Plan Detail Follow Up We will send a referral for GI Coding Level of Care Code Off vis,est,level 4 Diagnoses Abdominal bloating R14.0 Nausea AND vomiting R11.2 Hx laparoscopic cholecystectomy Z90.49 04/14/19 1349 <Electronically signed by Kasia Petit MD> Date Kasia Petit MD Cosigner Signature: Date (if applicable) CC: Andria Rogers Start: 01-15-2019 End: 01-15-2019 Surgery Visit Report Comments: See Note; NOTES: [facility] [address] [place] [address] [address] [place], [place] [id number] OFFICE VISIT Date of Service: 01/13/19 MR#: [id number] Acct: [id number] Name: GEETHAJOSÉ MIGUELMARY Laura Rep #: [id number] : 1940 Provider: Kasia Petit MD Age/Sex: 78/F Location: [facility] Status: Signed Intake Vital Signs01/13/19 Body Mass Index (BMI) 25.7 01/13/19 Blood Pressure 147/91 H Intake Visit Reasons: Vomiting on and off since sx Chief Complaint: vomiting/ diarrhea Resource Development Director Required: No Is patient in pain?: No Allergies iohexol Allergy (Verified 01/13/19 14:16) Hives codeine Adverse Reaction (Verified 01/13/19 14:16) Nausea/Vom/Diarrhea omnipaque dyes for xrays Allergy (Intermediate, Uncoded 11/11/18 11:21) Hives Medications echinacea 400 mg capsule 400 mg PO PRN PRN 10/15/18 [History Confirmed 01/13/19] ibuprofen 200 mg tablet 200 mg PO PRN PRN 10/15/18 [History Confirmed 01/13/19] lutein 40 mg capsule 120 mg PO DAILY cap 10/15/18 [History Confirmed 01/13/19] omega-3 fatty acids 1,000 mg capsule 1,000 mg PO DAILY 10/15/18 [History Confirmed 01/13/19] Calcium Carb/Vitamin D3/Vit K1 [Calcium + D Soft Chewable Tab] 1 ea PO DAILY 10/19/18 [History Confirmed 01/13/19] Multivitamin with Minerals [Multiple Vitamin] 1 ea PO DAILY 10/19/18 [History Confirmed 01/13/19] Sertraline HCl [Zoloft] 50 mg PO DAILY 11/04/18 [History Confirmed 01/13/19] dicyclomine 20 mg tablet 20 mg PO TID 90 Days #270 tab 11/30/18 [Rx Confirmed 01/13/19] omeprazole 40 mg capsule,delayed release 40 mg PO DAILY #90 cap 11/30/18 [Rx Confirmed 01/13/19] Is last menstrual period known: No Post menopausal: Yes Patient : No PFSH Medical History Gallbladder polyp (Acute) Cholesterolosis (Acute) Acid reflux (Acute) Diarrhea (Acute) Nausea AND vomiting (Acute) Abdominal pain (Acute) Sleep apnea (Acute) Arthritis (Acute) History of back problems (Acute) Surgical History Hx laparoscopic cholecystectomy (Acute) History of open sigmoidectomy (Chronic) History of colonoscopy (Acute) history excision colon polyps (Acute) History of arthroscopy of left knee (Acute) Family History Father Cancer prostate Brother Cancer brain Seizures Mother Colon cancer Social History (Updated 01/15/19 @ 12:30 by Kasia Petit MD) Smoking Status: Never smoker alcohol intake: never substance use type: does not use HPI HPI HPI: MARY LI, is a 78 F who presents to the office today for nausea and vomiting and bloating. Patient states that ever since her cholecystectomy she have 8-9 good days and then she will start having some bloating in her upper abdomen and that turns into cramps and then she has nausea and vomiting for 1 day and then again it is better. Patient states her vomiting does contain bile and she also has some diarrhea with that. Patient also states that the previous days food has been digested is not in the emesis only and the little bit that she may have a that day. Patient states this has usually been going in a cycle about every 10 days. However on her good days she is able to eat normally and not having any increased pain with eating of any certain foods is trying to get increase fiber during that time. Patient only occasionally takes her Bentyl if she has an issue does not take it regularly. Patient has been taking her omeprazole daily. Patient was unsure if the biliary system could play any role in this discomfort or if things are not moving through properly. However patient does not seem to have the bloating or anything on her good days. HPI HPI HPI: MARY LI, is a 78 F who presents to the office today for Exam Const General: cooperative, comfortable GI Inspection: non-distended Palpation: soft, no guarding, tender (Abdomen is diffusely minimally sore due to vomiting yesterday, no peritoneal signs) Assessment AND Plan Problems 1. Hx laparoscopic cholecystectomy Z90.49 11/11/18 2. Nausea AND vomiting R11.2 3. Abdominal bloating R14.0 Plan Discussed with patient that it does not seem like she has a problem with gastric emptying as she mostly has good days just occasional bad days. Also when she throws up she does throws up bile which would rule out an obstruction at the distal stomach and she also had a recent EGD. Patient also does not throw up the previous days food as it that has been digested she states she only has a little bit of food which she may have ate that day. I do not think a gastric emptying study would add anything or a small bowel follow-through currently. Patient did have concerns if her possible sphincter of Oddi dysfunction could play a role. Discussed with patient that I do not believe this would be the case but we could check the electrolytes as well as liver function profile to make sure there is nothing suspicious. Discussed with patient that I recommend trying to take the Bentyl regularly to see if this would improve since she seems to have mostly good days. Follow-up in about a week and a half. Patient was agreeable to plan. Addendum: Did discuss with patient that her BMP and liver functions were within normal limits. Kasia Petit M.D. Pager: [phone] [facility] [address] [place] [address], [address] [place] [address] Office: [phone] Orders Orders: Plan Detail Follow Up 1-2 weeks Coding Level of Care Code Global Post Op Diagnoses Hx laparoscopic cholecystectomy Z90.49 Nausea AND vomiting R11.2 Abdominal bloating R14.0 01/15/19 1230 <Electronically signed by Kasia Petit MD> Date Kasia Petit MD Cosigner Signature: Date (if applicable) CC: Andria Rogers Start: 11-12-2018 End: 11-12-2018 Operative Report Comments: See Note; NOTES: [facility] Medical Records Department [address] [place] [address] Operative Report 11/11/18 1315 MR#: [id number] Acct: [id number] Name: MARY LI Rep #: [id number] : 1940 78 From: Kasia Petit MD PCP: Andria Steve DO Status: [facility] [place] [facility] Operation Date of Procedure: 11/11/18 Pre-Operative Diagnosis: Biliary dyskinesia Post-Operative Diagnosis: Same Surgery/Procedure Performed:: Laparoscopic cholecystectomy with cholangiogram records management clerk: Velma Cheney Type of Anesthesia:: General/Supplemental Anesthesiologist: Chucho Villa Special Medications: Ancef 2 g IV x1 Specimen's removed: Gallbladder Estimated Blood Loss (mL): < 10 cc Fluids Replaced: 1150 Description of Procedure: Indications this is a 78 year-old female who had right upper quadrant pain normal gallbladder ultrasound except for some 2 mm polyps, abnormal HIDA scan at 16% ejection fraction, normal common bile duct on ultrasound and normal LFTs. Laparoscopic cholecystectomy was elected. Description procedure: The patient was placed on operating table in supine position. General Anesthesia was induced. A timeout was completed verifying correct patient, procedure, site, position and special equipment prior to beginning procedure. The abdomen was prepped and draped in usual sterile fashion. Incision was made in the right upper quadrant 15 blade scalpel. The abdomen is introducing the Optiview technique. Entry into the peritoneum was confirmed visually. The abdomen was insufflated with carbon dioxide to a pressure of 12-15 mmHg. Patient tolerated insufflation well. The laparoscope was then inserted and abdomen inspected. No injuries from initial trocar placement were noted. Additional trochars were then inserted in the following locations Jacques trocar was placed supraumbilically where there were no adhesions, 5 mm trocar in the epigastrium and 5 mm trochars along the right lateral costal margin. The abdomen was inspected no abnormalities were found except for lower midline adhesions from previous surgery. The table is placed in reverse Trendelenburg position with the right side up. The adhesions between the gallbladder and omentum were lysed sharply. The dome of the gallbladder was grasped with atraumatic grasper passed through the lateral port and retracted over the dome of the liver. Infundibulum was then grasped with atraumatic grasper through the midclavicular port and retracted to the right lower quadrant. This maneuver exposed Calot's triangle. The peritoneum overlying the gallbladder infundibulum was then incised and cystic duct and artery identified and circumferentially dissected. Handy catheter was used for cholangiograms. Cholangiogram showed good filling into the duodenum as well as into the bile ducts with no filling defect. The cystic duct and artery were then doubly clipped and divided close to the gallbladder. The gallbladder then dissected from its peritoneal attachments by electrocautery. Hemostasis was checked and the gallbladder and contained stones were removed using the endoscopic retrieval bag through the umbilical port. The gallbladder is passed off table as specimen. The gallbladder fossa was copiously irrigated with saline and hemostasis obtained. There is no evidence of bleeding from the gallbladder fossa or cystic artery leakage of bile from the cystic duct stump. Secondary trochars removed under direct vision. No bleeding was noted the trocar sites. The laparoscope was withdrawn and umbilical trocar removed. The abdomen was allowed to collapse. The fascia of the 12 mm trocar was closed with a [id number] 0 Vicryl suture. The skin was closed with sutures of 4-0 Monocryl and Steri-Strips. The patient was extubated. The patient tolerated procedure well and was taken to the postanesthesia care unit in stable condition. - Complications None 11/12/18 1226 <Electronically signed by Kasia Petit MD> Date Kasia Petit MD CC: Andria Steve DO; Kasia Petit MD Signed Andria Steve Start: 11-11-2018 End: 11-11-2018 Discharge Instruction Comments: See Note; NOTES: [facility] Medical Records Department [address] [place] [address] Instructions for Home/Discharge Instructions 11/11/18 1322 MR#: [id number] Acct: [id number] Name: MARY LI Rep #: [id number] : 1940 78 From: Kasia Petit MD PCP: Andria Steve DO [place] [facility] [place] Diet: Light diet - advance as tolerated Discharge Activity: May not drive while taking narcotic pain medications. May shower in (days): 1 Lifting Restrictions: Lifting greater than 20 pounds x 3 weeks Call your doctor if your incision/area has: Continuous Slow Oozing, Sudden Increased Bleeding, Increased Pain/ Swelling, Increased Redness, Foul Smelling Discharge, Swelling at the incision site Call your doctor if you observe: Fever of 101 or Higher Remove Dressing in (days):: 1 Additional Instructions: Okay to take ibuprofen 400-600 mg PO q6hr PRN along with the percocet. Avoid Tylenol since there is already Tylenol in the percocet. Take all pain meds with food. percocet can cause constipation recommend taking daily stool softener (i.e. Colace/docusate) while taking the pain meds. Recommend starting some MiraLAX in 1 to 2 days if no bowel movement. If still no bowel movement following day recommend taking magnesium citrate half the bottle and waiting 4-6 hours if still no results take the other half the bottle. Allergies/Adverse Reactions: Allergies iohexol Allergy (Verified 11/11/18 11:21) Hives codeine Adverse Reaction (Verified 11/11/18 11:21) Nausea/Vom/Diarrhea omnipaque dyes for xrays Allergy (Intermediate, Uncoded 11/11/18 11:21) Hives Medications to take at Discharge echinacea 400 mg capsule 400 mg PO PRN PRN 10/15/18 ibuprofen 200 mg tablet 200 mg PO PRN PRN 10/15/18 lutein 40 mg capsule 120 mg PO DAILY cap 10/15/18 omega-3 fatty acids 1,000 mg capsule 1,000 mg PO DAILY 10/15/18 Calcium Carb/Vitamin D3/Vit K1 [Calcium + D Soft Chewable Tab] 1 ea PO DAILY 10/19/18 Multivitamin with Minerals [Multiple Vitamin] 1 ea PO DAILY 10/19/18 Omeprazole 40 mg PO DAILY 10/19/18 Sertraline HCl [Zoloft] 50 mg PO DAILY 11/04/18 dicyclomine 20 mg tablet 20 mg PO BID #28 tab 11/09/18 Oxycodone HCl/Acetaminophen [Percocet 5/325] 1 - 2 tablet PO Q6H PRN PRN 3 Days #15 tablet 11/11/18 The following prescriptions were given: Oxycodone HCl/Acetaminophen [Percocet 5/325] 1 - 2 tablet PO Q6H PRN PRN 3 Days #15 tablet PRN Reason: Pain Transmission Status: Sent to [facility] Primary Care Physician: Andria Steve DO [Primary Care Provider] - Test Results: Test results from this visit will be discussed in further detail at your follow-up appointment, if applicable. Please Follow Up With: Kasia Pteit MD - After 5 PM and on the weekends call [phone] with any concerns When: Call the office for follow-up appointment in 2 weeks. Proposed Discharge Date: 11/11/18 11/11/18 5854 <Electronically signed by Kasia Petit MD> Date Kasia Petit MD CC: Andria Steve DO Signed Andria Steve Start: 11-11-2018 End: 11-11-2018 History and Physical Exam Comments: See Note; NOTES: [facility] Medical Records Department [address] [place] [address] History and Physical 11/11/18 1128 MR#: [id number] Acct: [id number] Name: MARY LI Rep #: [id number] : 1940 78 From: Kasia Petit MD PCP: Andria Steve DO Status: [facility] Location: [place] [address] History and Physical Date of Admission: 11/11/18 Intake Vital Signs 11/02/18 Body Mass Index (BMI) 26.6 Intake Visit Reasons: F/U Test Results HIDA Scan Chief Complaint: RUQ pain, second opinion Resource Development Director Required: No Is patient in pain?: No Allergies codeine Adverse Reaction (Verified 11/02/18 14:47) Nausea/Vom/Diarrhea omnipaque dyes for xrays Allergy (Intermediate, Uncoded 11/02/18 14:47) Hives Medications echinacea 400 mg capsule 400 mg PO PRN PRN 10/15/18 [History Confirmed 11/02/18] ibuprofen 200 mg tablet 200 mg PO PRN PRN 10/15/18 [History Confirmed 11/02/18] lutein 40 mg capsule 120 mg PO DAILY cap 10/15/18 [History Confirmed 11/02/18] omega-3 fatty acids 1,000 mg capsule 1,000 mg PO DAILY 10/15/18 [History Confirmed 11/02/18] Calcium Carb/Vitamin D3/Vit K1 [Calcium + D Soft Chewable Tab] 1 ea PO DAILY 10/19/18 [History Confirmed 11/02/18] Multivitamin with Minerals [Multiple Vitamin] 1 ea PO DAILY 10/19/18 [History Confirmed 11/02/18] Omeprazole 40 mg PO DAILY 10/19/18 [History Confirmed 11/02/18] dicyclomine 20 mg tablet 20 mg PO BID #28 tab 07/17/19 [Rx Confirmed 11/02/18] [facility] Medical History Gallbladder polyp (Acute) Cholesterolosis (Acute) Acid reflux (Acute) Diarrhea (Acute) Nausea AND vomiting (Acute) Abdominal pain (Acute) Sleep apnea (Acute) Arthritis (Acute) History of back problems (Acute) Surgical History History of colonoscopy (Acute) history excision colon polyps (Acute) History of arthroscopy of left knee (Acute) History of sigmoidectomy due to a colovesical fistula in 2015 at [facility] Family History Father Cancer prostate Brother Cancer brain Seizures Mother Colon cancer Social History (Updated 11/02/18 @ 15:31 by Kasia Petit MD) Smoking Status: Never smoker alcohol intake: never substance use type: does not use HPI HPI HPI: MARY LI, is a 77 F who presents to the office today for HPI HPI Surgical H AND P: Yes HPI: MARY LI, is a 77 F who presents to the office today for follow-up of HIDA scan results. Patient had an abnormal HIDA scan with ejection fraction 16% (normal 35% or greater) and there is also some refilling of the gallbladder question if there could be an issue with sphincter of Oddi as well. Patient states she still does get some nausea as well as right upper quadrant pain after eating she states the pain can be a 5 6/10 can be crampy she does occasionally also have vomiting she did vomit last Friday. Patient states she is able to eat some stuff without issues and others does cause the discomfort and nausea. Patient states the Bentyl has been helping somewhat this and she is also been taking the omeprazole as well. ROS General General: Yes fatigue; no weight change, colon cancer, breast cancer or weakness HEENT HEENT: No difficulty swallowing, eye injury, eye surgery, swollen glands or hoarseness Endo Endocrine: No thyroid disease, diabetes mellitus, thyroid cancer, Hair loss, heat intolerance or cold intolerance Skin Skin: No rash or changing moles Musc Musculoskeletal: Yes back problems and arthritis; no rheumatoid arthritis, gout or joint pain Cardio Cardiovascular: No murmur, pacemaker, heart disease, atrial fibrillation, high blood pressure, heart attack, heart stent, palpitations, shortness of breat with exertion or chest pain Psych Psychiatric: Yes depression and anxiety; no hearing voices Resp Respiratory: No shortness of breath, Yes sleep apnea, No cough, No COPD, No asthma, No emphysema, No wheezing Gastro Gastrointestinal: Yes abdominal pain, Yes nausea or vomiting, Yes diarrhea, Yes constipation, No blood in stool, Yes acid reflux, No hemorrhoids, No ulcers, Yes gallbladder problem, No black,tarry stools Dell Hematologic: No blood thinners, No blood disorders, No bleeding, No anemia, No blood clots Neuro Neurologic: No weakness Exam Const General: cooperative, comfortable, no acute distress Resp Effort AND Inspection: normal respiratory effort Cardio Rate: regular rate Heart Sounds: no murmurs GI Inspection: non-distended Palpation: soft, no guarding, tender (RUQ/epigastric/LUQ>RLQ, no PS) Psych Affect: normal affect Assessment AND Plan Problems 1. Biliary dyskinesia K82.8 2. GERD (gastroesophageal reflux disease) K21.9 3. RUQ pain R10.11 4. Epigastric pain R10.13 Plan Did review patient's HIDA scan with her showed ejection fraction of 16% which is lower than the normal of 35%. Also discussed that there could be some questionable sphincter of oddi dysfunction as well; however, since she does have an abnormal ejection fraction it is reasonable to take out the gallbladder. Discussed with patient I cannot guarantee that this will improve all of her symptoms. She does state that the Bentyl does seem to help some with the discomfort and nausea as well as the omeprazole. Reviewed the anatomy with the patient and discussed the procedure: laparoscopic cholecystectomy with cholangiograms, possible open. Discussed that due to her previous midline incision would need to enter into the abdomen using the Visiport technique in the right upper quadrant in the case may take a little bit longer due to previous adhesions. Review risks including but not limited to bleeding, infection, hernia, bile leak, retained gallstones requiring another procedure ERCP- Endoscopic Retrograde Cholangiopancreatography, injury to another organ (bile ducts, common bile duct, small bowel, etc.) which may require transfer to tertiary facility and conversion to an open procedure. All questions were answered. Kasia Petit M.D. Pager: [phone] [facility] [address] [place] [address] [facility], [address] [place] [address] Office: [phone] Plan Detail Follow Up will schedule lap malou Coding Level of Care Code Off vis,est,level 3 Diagnoses Biliary dyskinesia K82.8 GERD (gastroesophageal reflux disease) K21.9 RUQ pain R10.11 Epigastric pain R10.13 11/02/18 1532 <Electronically signed by Kasia Petit MD> Date Kasia Petit MD I have re-examined the patient. There are no clinical changes since date of exam. Addendum: surgery was cancelled due to abnormal EKG, cardiology c/s, will reschedule surgery 11/05/18 1153 <Electronically signed by Kasia Petit MD> Date: Time: Kasia Petit MD I have examined the patient the following changes are noted: Cardiology saw pt and didn't recommend any additional w/u and said ok to proceed with lap malou from their standpoint. Patient states she still does have some right-sided abdominal pain after eating discussed with patient she still may have an issue with sphincter of oddi even after surgery so this surgery may not take away all of her discomfort she may still need Bentyl. Patient expressed understanding no no further question at this time. 11/11/18 1132 <Electronically signed by Kasia Petit MD> Date Kasia Petit MD Cosigner Signature: Date (if applicable) CC: Andria Petit MD Signed Andria Steve Start: 11-11-2018 End: 11-11-2018 Cholangiogram/ O R,Initial Comments: See Note; NOTES: [facility] Imaging Services [address] [place] [address] Cholangiogram/ O R,Initial MR#: [id number] Acct: [id number] Name: MARY LI Rep #: [id number] : 1940 F 78 From: Kayden Cortez MD PCP: Andria Steve DO Status: [facility] Study: Cholangiogram/ O R,Initial Date of Exam: 11/11/18 Exam# [id number] Ordering Dr: Kasia Petit MD STUDY: INTRAOPERATIVE CHOLANGIOGRAM. REASON FOR EXAM: Female, 78 years old. Laparoscopic cholecystectomy. FLUOROSCOPY TIME (if supplied): (0:07) minutes/seconds. TECHNIQUE: An intraoperative quadrant was performed by the surgeon. Imaging was submitted. COMPARISON: None. FINDINGS: The intrahepatic ducts are unremarkable. The common bile duct is unremarkable as well. No intraluminal filling defect is seen. There is free flow of contrast into the duodenum. RAD/Cholangiogram/ O R,Initial IMPRESSION: Unremarkable intraoperative cholangiogram. Electronically Signed: Kayden Cortez, at 13:39 EDT , Service support , CC: Andria Steve DO; Kasia Petit MD Burner Technician: Signed Andria Steve Start: 11-05-2018 End: 11-05-2018 History and Physical Exam Comments: See Note; NOTES: [facility] Medical Records Department [address] [place] [address] History and Physical 11/02/18 0331 MR#: [id number] Acct: [id number] Name: MARY IL Rep #: [id number] : 1940 77 From: Kasia Petit MD PCP: Andria Steve DO [place] [facility] [place] [address] Intake Vital Signs 11/02/18 Body Mass Index (BMI) 26.6 Intake Visit Reasons: F/U Test Results HIDA Scan Chief Complaint: RUQ pain, second opinion Resource Development Director Required: No Is patient in pain?: No Allergies codeine Adverse Reaction (Verified 11/02/18 14:47) Nausea/Vom/Diarrhea omnipaque dyes for xrays Allergy (Intermediate, Uncoded 11/02/18 14:47) Hives Medications echinacea 400 mg capsule 400 mg PO PRN PRN 10/15/18 [History Confirmed 11/02/18] ibuprofen 200 mg tablet 200 mg PO PRN PRN 10/15/18 [History Confirmed 11/02/18] lutein 40 mg capsule 120 mg PO DAILY cap 10/15/18 [History Confirmed 11/02/18] omega-3 fatty acids 1,000 mg capsule 1,000 mg PO DAILY 10/15/18 [History Confirmed 11/02/18] Calcium Carb/Vitamin D3/Vit K1 [Calcium + D Soft Chewable Tab] 1 ea PO DAILY 10/19/18 [History Confirmed 11/02/18] Multivitamin with Minerals [Multiple Vitamin] 1 ea PO DAILY 10/19/18 [History Confirmed 11/02/18] Omeprazole 40 mg PO DAILY 10/19/18 [History Confirmed 11/02/18] dicyclomine 20 mg tablet 20 mg PO BID #28 tab 10/21/18 [Rx Confirmed 11/02/18] [facility] Medical History Gallbladder polyp (Acute) Cholesterolosis (Acute) Acid reflux (Acute) Diarrhea (Acute) Nausea AND vomiting (Acute) Abdominal pain (Acute) Sleep apnea (Acute) Arthritis (Acute) History of back problems (Acute) Surgical History History of colonoscopy (Acute) history excision colon polyps (Acute) History of arthroscopy of left knee (Acute) 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 Patient had an abnormal HIDA scan with ejection fraction 16% (normal 35% or greater) and there is also some refilling of the gallbladder question if there could be an issue with sphincter of Oddi as well. Patient states she still does get some nausea as well as right upper quadrant pain after eating she states the pain can be a 5 6/10 can be crampy she does occasionally also have vomiting she did vomit last Friday. Patient states she is able to eat some stuff without issues and others does cause the discomfort and nausea. Patient states the Bentyl has been helping somewhat this and she is also been taking the omeprazole as well. ROS General General: Yes fatigue; no weight change, colon cancer, breast cancer or weakness HEENT HEENT: No difficulty swallowing, eye injury, eye surgery, swollen glands or hoarseness Endo Endocrine: No thyroid disease, diabetes mellitus, thyroid cancer, Hair loss, heat intolerance or cold intolerance Skin Skin: No rash or changing moles Musc Musculoskeletal: Yes back problems and arthritis; no rheumatoid arthritis, gout or joint pain Cardio Cardiovascular: No murmur, pacemaker, heart disease, atrial fibrillation, high blood pressure, heart attack, heart stent, palpitations, shortness of breat with exertion or chest pain Psych Psychiatric: Yes depression and anxiety; no hearing voices Resp Respiratory: No shortness of breath, Yes sleep apnea, No cough, No COPD, No asthma, No emphysema, No wheezing Gastro Gastrointestinal: Yes abdominal pain, Yes nausea or vomiting, Yes diarrhea, Yes constipation, No blood in stool, Yes acid reflux, No hemorrhoids, No ulcers, Yes gallbladder problem, No black,tarry stools Dell Hematologic: No blood thinners, No blood disorders, No bleeding, No anemia, No blood clots Neuro Neurologic: No weakness Exam Const General: cooperative, comfortable, no acute distress Resp Effort AND Inspection: normal respiratory effort Cardio Rate: regular rate Heart Sounds: no murmurs GI Inspection: non-distended Palpation: soft, no guarding, tender (RUQ/epigastric/LUQ>RLQ, no PS) Psych Affect: normal affect Assessment AND Plan Problems 1. Biliary dyskinesia K82.8 2. GERD (gastroesophageal reflux disease) K21.9 3. RUQ pain R10.11 4. Epigastric pain R10.13 Plan Did review patient's HIDA scan with her showed ejection fraction of 16% which is lower than the normal of 35%. Also discussed that there could be some questionable sphincter of oddi dysfunction as well; however, since she does have an abnormal ejection fraction it is reasonable to take out the gallbladder. Discussed with patient I cannot guarantee that this will improve all of her symptoms. She does state that the Bentyl does seem to help some with the discomfort and nausea as well as the omeprazole. Reviewed the anatomy with the patient and discussed the procedure: laparoscopic cholecystectomy with cholangiograms, possible open. Discussed that due to her previous midline incision would need to enter into the abdomen using the Visiport technique in the right upper quadrant in the case may take a little bit longer due to previous adhesions. Review risks including but not limited to bleeding, infection, hernia, bile leak, retained gallstones requiring another procedure ERCP- Endoscopic Retrograde Cholangiopancreatography, injury to another organ (bile ducts, common bile duct, small bowel, etc.) which may require transfer to tertiary facility and conversion to an open procedure. All questions were answered. Kasia Petit M.D. Pager: [phone] [facility] [address] [place] [address], [facility], [address] [place] [address] Office: [phone] Plan Detail Follow Up will schedule lap malou Coding Level of Care Code Off vis,est,level 3 Diagnoses Biliary dyskinesia K82.8 GERD (gastroesophageal reflux disease) K21.9 RUQ pain R10.11 Epigastric pain R10.13 11/02/18 1532 <Electronically signed by Kasia Petit MD> Date Kasia Petit MD I have re-examined the patient. There are no clinical changes since date of exam. 11/05/18 1153 <Electronically signed by Kasia Petit MD> Date: Time: Kasia Petit MD CC: Andria Steve DO; Kasia Petit MD Date Dictated: 11/02/18 0331 Date Transcribed: 11/04/18 171 Burner Technician: Signed Andria Steve Start: 11-02-2018 End: 11-02-2018 Surgery Visit Report Comments: See Note; NOTES: [facility] [address] [place] [address]. [address] [place] [address] OFFICE VISIT Date of Service: 11/02/18 MR#: [id number] Acct: [id number] Name: MARY LI Rep #: [id number] : 1940 Provider: Kasia Petit MD Age/Sex: 77/F Location: [facility] Status: Signed Intake Vital Signs11/02/18 Body Mass Index (BMI) 26.6 Intake Visit Reasons: F/U Test Results HIDA Scan Chief Complaint: RUQ pain, second opinion Resource Development Director Required: No Is patient in pain?: No Allergies codeine Adverse Reaction (Verified 11/02/18 14:47) Nausea/Vom/Diarrhea omnipaque dyes for xrays Allergy (Intermediate, Uncoded 11/02/18 14:47) Hives Medications echinacea 400 mg capsule 400 mg PO PRN PRN 10/15/18 [History Confirmed 11/02/18] ibuprofen 200 mg tablet 200 mg PO PRN PRN 10/15/18 [History Confirmed 11/02/18] lutein 40 mg capsule 120 mg PO DAILY cap 10/15/18 [History Confirmed 11/02/18] omega-3 fatty acids 1,000 mg capsule 1,000 mg PO DAILY 10/15/18 [History Confirmed 11/02/18] Calcium Carb/Vitamin D3/Vit K1 [Calcium + D Soft Chewable Tab] 1 ea PO DAILY 10/19/18 [History Confirmed 11/02/18] Multivitamin with Minerals [Multiple Vitamin] 1 ea PO DAILY 10/19/18 [History Confirmed 11/02/18] Omeprazole 40 mg PO DAILY 10/19/18 [History Confirmed 11/02/18] dicyclomine 20 mg tablet 20 mg PO BID #28 tab 10/21/18 [Rx Confirmed 11/02/18] PFSH Medical History Gallbladder polyp (Acute) Cholesterolosis (Acute) Acid reflux (Acute) Diarrhea (Acute) Nausea AND vomiting (Acute) Abdominal pain (Acute) Sleep apnea (Acute) Arthritis (Acute) History of back problems (Acute) Surgical History History of colonoscopy (Acute) history excision colon polyps (Acute) History of arthroscopy of left knee (Acute) Family History Father Cancer prostate Brother Cancer brain Seizures Mother Colon cancer Social History (Updated 11/02/18 @ 15:31 by Kasia Petit MD) Smoking Status: Never smoker alcohol intake: never substance use type: does not use HPI HPI HPI: MARY LI, is a 77 F who presents to the office today for HPI HPI Surgical H AND P: Yes HPI: MARY LI, is a 77 F who presents to the office today for follow-up of HIDA scan results. Patient had an abnormal HIDA scan with ejection fraction 16% (normal 35% or greater) and there is also some refilling of the gallbladder question if there could be an issue with sphincter of Oddi as well. Patient states she still does get some nausea as well as right upper quadrant pain after eating she states the pain can be a 5 6/10 can be crampy she does occasionally also have vomiting she did vomit last Friday. Patient states she is able to eat some stuff without issues and others does cause the discomfort and nausea. Patient states the Bentyl has been helping somewhat this and she is also been taking the omeprazole as well. ROS General General: Yes fatigue; no weight change, colon cancer, breast cancer or weakness HEENT HEENT: No difficulty swallowing, eye injury, eye surgery, swollen glands or hoarseness Endo Endocrine: No thyroid disease, diabetes mellitus, thyroid cancer, Hair loss, heat intolerance or cold intolerance Skin Skin: No rash or changing moles Musc Musculoskeletal: Yes back problems and arthritis; no rheumatoid arthritis, gout or joint pain Cardio Cardiovascular: No murmur, pacemaker, heart disease, atrial fibrillation, high blood pressure, heart attack, heart stent, palpitations, shortness of breat with exertion or chest pain Psych Psychiatric: Yes depression and anxiety; no hearing voices Resp Respiratory: No shortness of breath, Yes sleep apnea, No cough, No COPD, No asthma, No emphysema, No wheezing Gastro Gastrointestinal: Yes abdominal pain, Yes nausea or vomiting, Yes diarrhea, Yes constipation, No blood in stool, Yes acid reflux, No hemorrhoids, No ulcers, Yes gallbladder problem, No black,tarry stools Dell Hematologic: No blood thinners, No blood disorders, No bleeding, No anemia, No blood clots Neuro Neurologic: No weakness Exam Const General: cooperative, comfortable, no acute distress Resp Effort AND Inspection: normal respiratory effort Cardio Rate: regular rate Heart Sounds: no murmurs GI Inspection: non-distended Palpation: soft, no guarding, tender (RUQ/epigastric/LUQ>RLQ, no PS) Psych Affect: normal affect Assessment AND Plan Problems 1. Biliary dyskinesia K82.8 2. GERD (gastroesophageal reflux disease) K21.9 3. RUQ pain R10.11 4. Epigastric pain R10.13 Plan Did review patient's HIDA scan with her showed ejection fraction of 16% which is lower than the normal of 35%. Also discussed that there could be some questionable sphincter of oddi dysfunction as well; however, since she does have an abnormal ejection fraction it is reasonable to take out the gallbladder. Discussed with patient I cannot guarantee that this will improve all of her symptoms. She does state that the Bentyl does seem to help some with the discomfort and nausea as well as the omeprazole. Reviewed the anatomy with the patient and discussed the procedure: laparoscopic cholecystectomy with cholangiograms, possible open. Discussed that due to her previous midline incision would need to enter into the abdomen using the Visiport technique in the right upper quadrant. Review risks including but not limited to bleeding, infection, hernia, bile leak, retained gallstones requiring another procedure ERCP- Endoscopic Retrograde Cholangiopancreatography, injury to another organ (bile ducts, common bile duct, small bowel, etc.) which may require transfer to tertiary facility and conversion to an open procedure. All questions were answered. Kasia Petit M.D. Pager: [phone] [facility] [address] [place] [address], [address] [place] [address] Office: [phone] Plan Detail Follow Up will schedule lap malou Coding Level of Care Code Off vis,est,level 3 Diagnoses Biliary dyskinesia K82.8 GERD (gastroesophageal reflux disease) K21.9 RUQ pain R10.11 Epigastric pain R10.13 11/02/18 1532 <Electronically signed by Kasia Petit MD> Date Kasia Petit MD Cosigner Signature: Date (if applicable) CC: Andria Rogers Start: 10-26-2018 End: 10-26-2018 Hepatobilliary Img w/Pharm Int Comments: See Note; NOTES: [facility] Imaging Services [address] [place] [id number] Hepatobilliary Img w/Pharm Int MR#: [id number] Acct: [id number] Name: MARY LI Rep #: [id number] : 1940 F 77 From: Oscar Valladares DO PCP: Andria Steve DO Status: REG CLI Study: Hepatobilliary Img w/Pharm Int Date of Exam: 10/26/18 Exam# [id number] Ordering Dr: Kasia Petit MD CLINICAL: 77-year-old female with reported history of abdominal pain and nausea. RADIONUCLIDE HEPATOBILIARY SCINTIGRAPHY COMPARISON: Abdominal ultrasound report 10/12/2018 FINDINGS: Following the intravenous administration of 5.6 mCi of 99m Tc Mebrofenin, hepatobiliary images reveal: 1. Relatively prompt and homogeneous radiopharmaceutical concentration is noted by the liver parenchyma. The left lobe appears prominent in size. No parenchymal defects are identified. 2. Gallbladder activity is identified at 10 minutes post radiopharmaceutical administration. 3. Small intestinal tract is not visualized during 60 minutes of pre-CCK sequential imaging. Small bowel activity is identified following the administration of cholecystokinin. 4. Washout of the radiopharmaceutical by the hepatic parenchyma appears qualitatively normal. Cholecystokinin (0.02 ug/kg) was administered intravenously over a 30-minute period. The post CCK gallbladder ejection fraction calculated at 20 minutes following Cholecystokinin administration was noted to be 16.0 % (normal greater than 35%). There is refilling of the gallbladder identified following CCK provision. [place]/Hepatobilliary Img w/Pharm Int IMPRESSION: 1. ABNORMAL 99m Tc Mebrofenin hepatobiliary imaging examination with Cholecystokinin. A. A gallbladder ejection fraction calculated to be less than 35% following the administration of Cholecystokinin is consistent with the presence of functional hepatobiliary disease (gallbladder and/or sphincter of Oddi dyskinesia) and/or organic hepatobiliary disease (chronic acalculous cholecystitis and/or cystic duct syndrome) in patients with intermediate to high pretest likelihoods of hepatobiliary illness. (Oniel Pak et al, Journal of Nuclear Medicine 32:1695, 1990). B. 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 Correlation with Sphincter of Oddi manometry is recommended. Electronically Signed: Oscar Valladares DO at 22:00 EDT Tel , Service support , CC: Andria Steve DO; Kasia Petit MD Burner Technician: Signed Andria Steve Start: 10-19-2018 End: 10-19-2018 Operative Report - Endoscopy Comments: See Note; NOTES: [facility] Medical Records Department [address] [place] [address] Operative Report - Endoscopy MR#: [id number] Acct: [id number] Name: STRONGOSMARY VALDEZ Rep #: [id number] : 1940 77 From: Kasia Petit MD PCP: Andria Steve DO [place] [facility] [place]19[place] Andria Steve [address] [place] [address] [place] [address] Re : Upper GI endoscopy procedure for Mary Ritohortencia Dear Dr. Steve This procedure was performed on Friday, October 19, 2018. My impressions and recommendations are as follows: Impressions : - 4 cm hiatal hernia. - Z-line irregular, 34 cm from the incisors. Biopsied. - Erythematous mucosa in the antrum. Biopsied. - Normal first portion of the duodenum and second portion of the duodenum. Recommendations : - Await pathology results. - Discharge patient to home. - Continue present medications. - Use Prilosec (omeprazole) 20 mg PO BID. My findings are described in the full procedure note, which is enclosed. If I can be of further assistance, please feel free to contact me at Doctor phone number(s): , Work: . Sincerely, MD Kasia Busby MD 10/19/2018 9:51:32 AM This report has been signed electronically. 10/19/1851 Date Kasia Petit MD Cosigner Signature: Date (if indicated) CC: Andria Steve DO; Kasia Petit MD Date Dictated: 10/19/18923 Date Transcribed: Burner Technician: ADY Signed Andria Steve Start: 10-19-2018 End: 10-19-2018 History and Physical Exam Comments: See Note; NOTES: [facility] Medical Records Department [address] [facility] [place] [address] History and Physical 10/19/18825 MR#: [id number] Acct: [id number] Name: MARY LI Rep #: [id number] : 1940 77 From: Kasia Petit MD PCP: Andria Steve DO Status: REG SD[facility] Y Location: [place] [address] History and Physical Date of Admission: 10/19/18 Intake Vital Signs 10/16/18 Body Mass Index (BMI) 27.3 Intake Visit Reasons: RUQ pain Chief Complaint: RUQ pain, second opinion Resource Development Director Required: No Is patient in pain?: No Allergies omnipaque dyes for xrays Allergy (Unknown, Uncoded 10/15/18 14:00) Unknown Medications Lactobacillus rhamnosus GG 10 billion cell-inulin 200 mg capsule cap PO DAILY cap 10/15/18 [History Confirmed 10/16/18] echinacea 400 mg capsule 400 mg PO TID 10/15/18 [History Confirmed 10/16/18] ibuprofen 200 mg tablet 200 mg PO Q6H 10/15/18 [History Confirmed 10/16/18] lutein 40 mg capsule 120 mg PO DAILY cap 10/15/18 [History Confirmed 10/16/18] omega-3 fatty acids 1,000 mg capsule 1,000 mg PO DAILY 10/15/18 [History Confirmed 10/16/18] Is last menstrual period known: No Post menopausal: Yes Patient : No PFSH Medical History (Updated 10/16/18 @ 15:40 by Rufina Lopes) Gallbladder polyp (Acute) Cholesterolosis (Acute) Acid reflux (Acute) Diarrhea (Acute) Nausea AND vomiting (Acute) Abdominal pain (Acute) Sleep apnea (Acute) Arthritis (Acute) History of back problems (Acute) Surgical History (Updated 10/16/18 @ 15:40 by Rufina Lopes) History of colonoscopy (Acute) history excision colon polyps (Acute) History of arthroscopy of left knee (Acute) Family History (Updated 10/16/18 @ 15:38 by Rufina Lopes) Father Cancer prostate Brother Cancer brain Seizures Mother Colon cancer Social History (Updated 10/16/18 @ 16:21 by Kasia Petit MD) Smoking Status: Never smoker alcohol intake: never substance use type: does not use HPI HPI HPI: MARY LI, is a 77 F who presents to the office today for right upper quadrant pain, nausea and vomiting. Patient states that on 10/09/2018 Mateo patient had decreased appetite and had nausea and vomiting and right upper quadrant pain about 8 or 9:00 at night. Patient rated the pain be a 7 8/10 at that time. Patient has been unable to sleep well due to the nausea and pain. Patient states she was previously on PPI however has been off for months as she ran out and has had a other things going on were she did not get it refilled. Patient also states that on Friday she had some liquid stool with red particles she is unsure exactly what the red particles were as they were floating she is not seeing any other blood in her stool but she did have some black stools prior to starting the Pepto-Bismol a week or so ago. Patient has been taking Pepto-Bismol to help with the nausea and vomiting. Patient did just recently start omeprazole 20 mg p.o. twice daily [id number], just started yesterday. Patient currently states her pain is dull but rates it a 5 6/10. Patient does states she is able to drink water and stay hydrated but has nausea and vomiting right after eating and at night. Patient's ultrasound showed a normal gallbladder wall, no pericholecystic fluid, 1 or 2 gallbladder polyps which look to measure less than 2 mm and a common bile duct of 4 mm. HPI HPI HPI: MARY LI, is a 77 F who presents to the office today for ROS General General: Yes fatigue; no weight change, appetite, colon cancer, breast cancer or weakness HEENT HEENT: No difficulty swallowing, eye injury, eye surgery, swollen glands or hoarseness Endo Endocrine: No thyroid disease, diabetes mellitus, thyroid cancer, Hair loss, heat intolerance or cold intolerance Skin Skin: No rash or changing moles Breast Breast: No left breast lump, right breast lump, nipple discharge, breast pain, abnormal mammogram, abnormal US or breast enlargement Musc Musculoskeletal: Yes back problems and arthritis; no rheumatoid arthritis, gout or joint pain Cardio Cardiovascular: No murmur, pacemaker, heart disease, atrial fibrillation, high blood pressure, heart attack, heart stent, palpitations, shortness of breat with exertion or chest pain Psych Psychiatric: Yes depression and anxiety; no hearing voices Resp Respiratory: No shortness of breath, Yes sleep apnea, No cough, No COPD, No asthma, No emphysema, No wheezing Gastro Gastrointestinal: Yes abdominal pain, Yes nausea or vomiting, Yes diarrhea, Yes constipation, No blood in stool, Yes acid reflux, No hemorrhoids, No ulcers, Yes gallbladder problem, No black,tarry stools Dell Hematologic: No blood thinners, No blood disorders, No bleeding, No anemia, No blood clots Neuro Neurologic: No weakness Exam Const General: cooperative, comfortable, no acute distress Chest Breast Palpation: No nipple discharge Resp Effort AND Inspection: normal respiratory effort Cardio Rate: regular rate Heart Sounds: no murmurs GI Inspection: non-distended, scar (Previous midline incision well healed) Palpation: soft, no guarding, no hernias, tender (Epigastric and right upper quadrant) Assessment AND Plan Problems 1. RUQ pain R10.11 2. Epigastric pain R10.13 3. GERD (gastroesophageal reflux disease) K21.9 4. Melena K92.1 Plan I have discussed the above with the patient. I have offered the patient EGD for evaluation. I have explained the risks/benefits of the procedure and described the procedure. I have discussed the risks with the patient, including but not limited to: infection, bleeding, perforation of the GI tract requiring emergency surgery, inability to complete the procedure, injury to any internal organs, complications of anesthesia, etc. - the patient understands and agrees to proceed. I have answered all the patient's questions to the patient's satisfaction and the patient has no further questions. Discussed with patient and her friend who accompanied her that I recommend her continuing the omeprazole 20 mg twice daily or 40 mg daily also discussed that she could try Pepcid 20 mg daily or twice daily for the first 2 days until the omeprazole is more effective. Patient is agreeable plan. Did review the ultrasound of the gallbladder with the patient and her friend and discussed the findings did not warrant cholecystectomy currently as her polyps are less than 2 mm in size. Discussed that the polyps are greater than a centimeter near centimeter cholecystectomy could be done to make sure they were not cancerous. Also patient's symptoms do not really fit with gallbladder even though she does have some right upper quadrant pain she also has epigastric pain on exam and she had a history of black stool prior to taking the Pepto-Bismol which again would question whether she had gastritis or ulcer. Greater than 50% of direct patient contact was spent in counseling or coordination of care. I spent 25 minutes counseling the patient and coordinating care. Kasia Petit M.D. Pager: [phone] [facility] [address] [place] [address], [address] [place] [address] Office: [phone] Orders Orders: Plan Detail Follow Up Will schedule EGD Diagnoses RUQ pain R10.11 Epigastric pain R10.13 GERD (gastroesophageal reflux disease) K21.9 Melena K92.1 Time Spent (min) 45 10/16/18 1622 <Electronically signed by Kasia Petit MD> Date Kasia Petit MD 10/19/18 0935 <Electronically signed by Kasia Petit MD> Date Kasia Petit MD Cosigner Signature: Date (if applicable) CC: Andria Steve DO; Kasia Petit MD Signed Andria Steve Start: 10-12-2018 End: 10-12-2018 Gallbladder Comments: See Note; NOTES: [facility] Imaging Services [address] [place], [place] [id number] Gallbladder MR#: [id number] Acct: [id number] Name: MARY LI Rep #: [id number] : 1940 F 77 From: Oscar Tabares MD PCP: Andria Steve DO Status: REG CLI Study: Gallbladder Date of Exam: 10/12/18 Exam# [id number] Ordering Dr: Mercedes Sargent DRILLING ENGINEERING MANAGER-C STUDY: ABDOMINAL ULTRASOUND - RIGHT UPPER QUADRANT REASON FOR VISIT: Female, 77 years old. Abdominal pain TECHNIQUE: Ultrasound evaluation of the right upper quadrant was performed with real-time and static keenan-scale imaging. TECHNICAL QUALITY: Adequate. COMPARISON: Renal scintigraphy 06/14/2016 FINDINGS: Liver: The liver measures 10.6 cm. There is normal echogenicity of the liver. The bile ducts are within normal limits. There is hepatic color flow. The direction of portal flow is hepatopetal. There is no demonstrated mass lesion. Gallbladder: Normal distended gallbladder. The gallbladder wall measures 2 mm. There is a negative sonographic Coelho's sign. There is no pericholecystic fluid. There are gallbladder polyps. Common Bile Duct (C.B.D.): The common bile duct measures 4 mm. Pancreas: Normal size of the head, body and tail of the pancreas. There is normal echogenicity of the pancreas. There is no demonstrated pancreatic mass or cyst. Right Kidney: Normal size of the right kidney. The right kidney measures 11.1 cm. Normal renal cortex. The right cortex measures 1.6 cm. There is no demonstrated renal mass or cyst. There is an extra-renal pelvis of the right kidney. There is no distention of the renal calyces. US/Gallbladder IMPRESSION: 1. Cholesterolosis. Electronically Signed: Oscar Tabares MD at 15:41 EDT Tel , Service support , CC: ROSITA Sargent; Andria Steve DO Burner Technician: Signed Mercedes Sargent Start: 06-14-2016 End: 06-15-2016 Renal Scan w/ Pharm Intervent Comments: See Note; NOTES: [facility] Imaging Services [address] [place] [address] Verdana 4d Renal Scan w/ Pharm Intervent MR#: [id number] Acct: [id number] Name: MARY LI Rep #: [id number] : 1940 F 75 From: Oscar Valladares DO PCP: Andria Steve DO Status: REG CLI Study: Renal Scan w/ Pharm Intervent Date of Exam: 06/14/16 Exam# [id number] Ordering Dr: Osman Edwards MD CLINICAL: 75-year-old female with apparent history of right kidney hydronephrosis. Tc MAG3 DIURETIC RENAL SCINTIGRAPHY COMPARISON: None available FINDINGS: Following the intravenous administration of 10.3 mCi of Tc MAG3, renal images reveal: 1. The flow study demonstrates symmetric arterial phase distribution of the radiopharmaceutical to the bilateral kidneys. 2. Immediate static delayed nephrogram images depict relatively prompt, homogeneous tracer concentration by the renal parenchyma of both kidneys. Collecting structure visualization is defined an approximately 4 minutes post tracer provision bilaterally. Washout of the radiopharmaceutical by the renal parenchyma appears qualitatively normal in both kidneys. Persistent collecting system activity is defined in the right and to lesser extent left renal units during 20 minutes of pre-furosemide sequential image acquisition. 3. The nhmqa-aw-qatl ratio of total renal parenchymal function was calculated to be 50/50. Furosemide 10 mg was administered intravenously. The post Lasix T 1/2 washout of the bilateral kidney collecting system activity was calculated to be < 10 minutes, (normal < 10 minutes). NM/Renal Scan w/ Pharm Intervent IMPRESSION: 1. There is age appropriate preservation of bilateral renal parenchymal, cortical function. 2. A normal physiologic response to induced diuresis is identified in the right and left kidney collecting systems negating the presence of significant mechanical and/or functional obstruction. Electronically Signed: Oscar Valladares DO at 7:59 EST Tel , Service support [phone], CC: Osman Edwards MD; Andria Steve DO Burner Technician: Signed Andria Steve Start: 04-07-2014 End: 04-07-2014 Bone density scan [facility] Start: 04-07-2014 End: 04-07-2014 Screening mammography [facility] Start: 04-07-2011 End: 04-07-2011 Screening colonoscopy Melissa Ethel Start: 04-07-1998 End: 04-07-1998 Cataract Surgery Melissa Ethel Start: 04-07-1998 End: 04-07-1998 Cataract surgery Lily Acuña LPN History of cholecystectomy Hx laparoscopic cholecystectomy Tonsillectomy Melissa Rukhsana cote Comment on above: 8 yrs old Tonsillectomy Estelita Roth Comment on above: 8 yrs old Tonsillectomy Lily Acuña Comment on above: 8 yrs old Tonsillectomy Estelita Roth Comment on above: 8 yrs old Tonsillectomy Lily Acuña L PN Comment on above: 8 yrs old Tonsillectomy Debbi Ingram PHARMACY MESSENGER Comment on above: 8 yrs old Tonsillectomy Mellisa Noemy L PN Comment on above: 8 yrs old Tonsillectomy KELBY Tr [employer] AS[employer]BLER Comment on above: 8 yrs old Plan of Treatment Date Care Activity Detail Author Start: 06-18-2026 Diabetes Screening Diabetes Screenin g [facility] Start: 12-06-2024 Influenza vaccination Influenza Vacc ine (#1) [facility] Start: 05-27-2024 End: 05-27-2024 Patient encounter procedure 05/27/2024 10:40 AM EST Office Visit [facility] [address] [place] [id number] Tadeo Napoles MD [address] [place] [address] [facility] Start: 04-07-2024 Advance Directive Discussion Advance Directive Discussion [facility] Start: 04-07-2024 Medicare Advantage Annual Wellness Visit Medicare Advantage Annual Wellness Visit [facility] Start: 02-26-2024 End: 02-25-2025 Ferritin [Mass/volume] in Serum or Plasma Ferritin Lab Routine Restless legs syndrome with nocturnal myoclonus Fatigue, unspecified type Expected: 02/26/2024 (Approximate), Expires: 02/25/2025 [facility] Comment on above: Expected: 02/26/2024 (Approximate), Expires: 02/25/2025 Start: 02-26-2024 End: 02-25-2025 Iron and Iron binding capacity panel - Serum or Plasma Iron and TIBC Lab Routine Restless legs syndrome with nocturnal myoclonus Fatigue, unspecified type Expected: 02/26/2024 (Approximate), Expires: 02/25/2025 [facility] Work Phone: Comment on above: Expected: 02/26/2024 (Approximate), Expires: 02/25/2025 Start: 02-26-2024 End: 02-25-2025 Thyrotropin [Units/volume] in Serum or Plasma TSH Lab Routine Restless legs syndrome with nocturnal myoclonus Fatigue, unspecified type Expected: 02/26/2024 (Approximate), Expires: 02/25/2025 [facility] Comment on above: Expected: 02/26/2024 (Approximate), Expires: 02/25/2025 Start: 12-07-2023 Covid-19 Vaccine () Covid-19 Vaccine () [facility] Start: 12-07-2023 COVID-19 Vaccine () COVID-19 Vaccine () [facility] Start: 12-07-2023 Influenza vaccination [facility] Start: 04-07-2023 Advance Directive Discussion Advance Directive Discussion [facility] Start: 04-07-2023 Depression Assessment Depression Ass essment [facility] Start: 04-07-2023 Medicare Advantage Annual Wellness Visit Medicare Advantage Annual Wellness Visit [facility] Start: 12-13-2022 Urnls dip stick/tabl et rgnt non-auto w/o micrscp Urinalysis, Office (47107) [facility] Work Phone: Start: 12-06-2022 Covid-19 Vaccine () Covid-19 Vaccine () [facility] Start: 12-05-2022 Culture bct isol&prsmptv id isolate ea urine URINE ANUJ CULTURE-IDENTIFICATN (90634) [facility] Work Phone: Start: 12-05-2022 Procedure Education Eprescribe d prescriptions (G8553) [facility]; [facility] Work Phone: Start: 12-05-2022 Provider Instruction s for Treatment [facility]; [facility] Work Phone: Start: 11-20-2022 Blood count complete auto&auto difrntl wbc CBC, PLATELETS & AUT DIFF (98313) [facility]; [facility] Work Phone: Start: 11-20-2022 Comprehensive metabo lic panel METABOLIC PANEL, COMPREHENSIVE (54118) [facility]; [facility] Work Phone: Start: 11-20-2022 Procedure Education Eprescribe d prescriptions (G8553) [facility]; [facility] Work Phone: Start: 11-20-2022 Provider Instruction s for Treatment Follow up if no improvement or if symptoms worsen. [facility]; [facility] Work Phone: Start: 11-20-2022 Urnls dip stick/tabl et reagent auto microscopy Urinalysis, Complete W/ Microscopic Examination with reflex to urine culture, routine (29683) [facility]; [facility] Work Phone: Start: 06-19-2022 Zoster Vaccines (2 o f 2) Zoster Vaccines (2 of 2) [facility] Start: 04-25-2022 Procedure Education Eprescribe d prescriptions (G8553) [facility]; [facility] Work Phone: Start: 12-06-2021 Influenza vaccination C [facility] Start: 04-07-2021 ADVANCE DIRECTIVE DISCUSSION ADVANCE DIRECTIVE DISCUSSION [facility] Start: 06-06-2020 COVID-19 VACCINE (2 - Moderna 3-dose series) COVID-19 VACCINE (2 - Moderna 3-dose series) [facility] Start: 06-06-2020 COVID-19 VACCINE (2 - Moderna series) COVID-19 VACCINE (2 - Moderna series) [facility] Start: 05-01-2020 Procedure Education Eprescribe d prescriptions (G8553) [facility]; [facility] Work Phone: Start: 05-01-2020 Provider Instruction s for Treatment [facility]; [facility] Work Phone: Start: 02-10-2020 Procedure Education Eprescribe d prescriptions (G8553) [facility] Work Phone: Start: 02-10-2020 Culture bacterial quanttative colony count urine URINE ANUJ CULTURE (LUIS EDUARDO COL COUNT) (72764) [facility] Work Phone: Start: 01-20-2020 Procedure Education Eprescribe d prescriptions (G8553) [facility] Work Phone: Start: 01-20-2020 Provider Instruction s for Treatment [facility] Work Phone: Start: 01-20-2020 Culture bct isol&prsmptv id isolate ea urine URINE ANUJ CULTURE-IDENTIFICATN (33002) [facility] Work Phone: Start: 08-03-2019 DIABETES SCREEN DIABETES SCREEN [facility] Start: 04-08-2019 Procedure Education Eprescribe d prescriptions (G8553) [facility] Work Phone: Start: 04-08-2019 Provider Instruction s for Treatment [facility] Work Phone: Start: 10-12-2018 Procedure Education Eprescribe d prescriptions (G8553) [facility] Work Phone: Start: 10-12-2018 Provider Instruction s for Treatment [facility] Work Phone: Start: 10-12-2018 Sedimentation rate r bc non-automated Sed Rate Erythrocyte (79525) [facility] Work Phone: Start: 10-12-2018 Comprehensive metabo lic panel METABOLIC PANEL, COMPREHENSIVE (72353) [facility] Work Phone: Start: 10-12-2018 Blood count complete automated CBC & PLATELETS (AUTO) (96954) [facility] Work Phone: Start: 03-21-2017 Culture bct isol&prsmptv id isolate ea urine URINE ANUJ CULTURE-IDENTIFICATN (63070) [facility] Work Phone: Comment on above: post check Start: 03-10-2017 Provider Instruction s for Treatment Follow up in 1 month [facility] Work Phone: Start: 11-06-2016 Procedure Education Eprescribe d prescriptions (G8553) [facility] Work Phone: Start: 11-06-2016 Provider Instruction s for Treatment [facility] Work Phone: Start: 05-22-2016 Provider Instruction s for Treatment [facility] Work Phone: Start: 05-15-2016 Procedure Education Eprescribe d prescriptions (G8553) [facility] Work Phone: Start: 05-15-2016 Provider Instruction s for Treatment Follow up in 1 week [facility] Work Phone: Start: 12-29-2015 Provider Instruction s for Treatment [facility] Work Phone: Start: 12-29-2015 Blood occult fecal h gb deter ia qual feces 1-3 FECAL OCCULT- Tubes sent home (45807) [facility] Work Phone: Start: 12-12-2015 Procedure Education Eprescribe d prescriptions (G8553) [facility] Work Phone: Start: 12-12-2015 Provider Instruction s for Treatment *Trigger Point Injections [facility] Work Phone: Start: 12-06-2015 Procedure Education Eprescribe d prescriptions (G8553) [facility] Work Phone: Start: 11-23-2015 Procedure Education Eprescribe d prescriptions (G8553) [facility] Work Phone: Start: 11-23-2015 Culture bct isol&prsmptv id isolate ea urine URINE ANUJ CULTURE-IDENTIFICATN (59728) [facility] Work Phone: Start: 11-23-2015 Comprehensive metabo lic panel METABOLIC PANEL, COMPREHENSIVE (01266) [facility] Work Phone: Start: 11-23-2015 Blood count complete auto&auto difrntl wbc CBC, PLATELETS & AUT DIFF (47468) [facility] Work Phone: Start: 11-05-2015 RSV Immunization for Adults (1 - 1-dose 75+ series) RSV Immunization for Adults (1 - 1-dose 75+ series) [facility] Start: 11-05-2015 RSV Vaccine (1 - 1-d ose 75+ series) RSV Vaccine (1 - 1-dose 75+ series) [facility] Start: 2005 BONE DENSITY BONE DENSITY [facility] Start: 2005 Pneumococcal Vaccine : 65+ Years (1 of 1 - PCV) Pneumococcal Vaccine: 65+ Years (1 of 1 - PCV) [facility] Start: 2005 PNEUMOCOCCAL: 65+ (1 - PCV) PNEUMOCOCCAL: 65+ (1 - PCV) [facility] Start: 2005 PNEUMOVAX AGE 65 AND OVER WITH 5YR LOOKBACK (#1) PNEUMOVAX AGE 65 AND OVER WITH 5YR LOOKBACK (#1) [facility] Start: 2005 Screening for osteoporosis Bone Density Screening [facility] Start: 2000 HEPATITIS B (1 of 3 - Risk 3-dose series) HEPATITIS B (1 of 3 - Risk 3-dose series) [facility] Start: 2000 Hepatitis B Vaccine (1 of 3 - Risk 3-dose series) Hepatitis B Vaccine (1 of 3 - Risk 3-dose series) [facility] Start: 2000 RSV Vaccine (1 - 1-d ose 60+ series) RSV Vaccine (1 - 1-dose 60+ series) [facility] Start: 1990 Pneumococcal Vaccine : 50+ (1 of 1 - PCV) Pneumococcal Vaccine: 50+ (1 of 1 - PCV) [facility] Start: 1990 Pneumococcal Vaccine : 50+ Years (1 of 1 - PCV) Pneumococcal Vaccine: 50+ Years (1 of 1 - PCV) [facility] Start: 1990 SHINGRIX VACCINE (1 of 2) SHINGRIX VACCINE (1 of 2) [facility] Start: 11-05-1959 DTaP/Tdap/Td Vaccine s (1 - Tdap) DTaP/Tdap/Td Vaccines (1 - Tdap) [facility] Start: 11-05-1959 Hepatitis A Vaccine (1 of 2 - Risk 2-dose series) Hepatitis A Vaccine (1 of 2 - Risk 2-dose series) [facility] Start: 11-05-1959 Urine microalbumin profile [facility] Start: 1958 Anxiety Screening Anxiety Screening [facility] Start: 1958 Depression Screening Depression Scre ening [facility] Start: 1958 MMR (1 of 2 - Risk 2-dose series) MMR (1 of 2 - Risk 2-dose series) [facility] Start: 1958 MMR Vaccine (1 of 2 - Risk 2-dose series) MMR Vaccine (1 of 2 - Risk 2-dose series) [facility] Start: 1952 Adult depression screening assessment DEPRESSION SCREENING [facility] Start: 1950 Meningococcal B Vaccine: Consider Based On Risk (1 of 4 - Increased Risk) Meningococcal B Vaccine: Consider Based On Risk (1 of 4 - Increased Risk) [facility] Start: 1950 MENINGOCOCCAL B: Consider based on risk (1 of 4 - Increased Risk Bexsero 2-dose series) MENINGOCOCCAL B: Consider based on risk (1 of 4 - Increased Risk Bexsero 2-dose series) [facility] Start: 1946 Pneumococcal Vaccine : 65+ (1 of 2 - PCV) Pneumococcal Vaccine: 65+ (1 of 2 - PCV) [facility] Start: 1941 HEPATITIS A (1 of 2 - Risk 2-dose series) HEPATITIS A (1 of 2 - Risk 2-dose series) [facility] Start: 1940 Lipid panel Lipid Panel [facility] Start: 1940 Screening for osteoporosis Bone Density Scan [facility] Work Phone: [facility] Work Phone: [facility] Work Phone: [facility] Work Phone: [facility] Work Phone: [facility] Work Phone: [facility] Work Phone: Immunizations Immunization Date Immunization Notes Care Provider [facility] 01-24-2023 influenza virus vaccine, unspecified formulation Tadeo Napoles MD Work Phone: [facility] 05-09-2020 COVID-Moderna (100 MCG/0.5 ML) Andria Steve DO Work Phone: [facility] Work Phone: 02-07-2018 influenza virus vaccine, unspecified formulation Federico Jade MD Work Phone: [facility] Payers Date Payer Category Payer Self-pay [id number] 2021 Medicare O [employer] MEDICARE [id number] 2017 Medicare HUMANA MEDICARE HU[employer]NA MEDICARE PPO [id number] 2017-Present [phone] [place] [address] PPO [id number] 2017 Medicare HUMANA MEDICARE HU[employer]NA MEDICARE PPO [id number] 2017-Present [phone] [place] [address] [id number] 2017 Medicare (Managed Care) HUMANA M EDICARE [id number] 2017 Medicare [id number] 2016 Private Health Insurance 1940 Unknown [id number] Unknown Hum//Medicare Adv Plan Unknown [id number] Unknown [id number] Unknown [id number] Unknown [id number] Unknown [id number] Unknown [id number] Unknown [id number] Unknown [id number] Unknown [id number] Unknown [id number] Social History Date Type Detail Facility Alcohol Use: Alcohol Use: [facility] Work Phone: Start: 04-23-2022 End: 06-17-2023 Exercise History Exercise History [facility] Work Phone: Comment on above: water aerobics 2-3 t imes a week Tobacco use: Tobacco use: [facility] Work Phone: Alcohol Use: Alcohol Use: [facility] Work Phone: Tobacco use: Tobacco use: [facility] Work Phone: Start: 05-05-2015 End: 02-26-2024 Tobacco smoking status NHIS Never smoked tobacco [facility] Start: 05-05-2015 End: 02-26-2024 Tobacco use and exposure Smokeless tobacco non-user [facility] Start: 07-13-2021 End: 07-08-2023 Alcohol intake Current non-drinker of alcohol (finding) [facility] Start: 1940 Sex Assigned At Not on file [facility] Start: 07-03-2021 End: 12-07-2021 Exposure to SARS-CoV-2 (event) Not sure [facility] Start: 04-14-2019 End: 04-14-2019 Tobacco smoking status NHIS Unknown if ever smoked [facility] Start: 10-19-2018 Non-smoker [facility] Start: 1940 Sex Assigned At Female W [facility] Start: 04-23-2022 End: 06-17-2023 [facility] Utilities [facility] Has the [employer], or [employer] threatened to shut off services in your home in past 12Mo No [facility] How hard is it for y ou to pay for the very basics like food, housing, medical care, and heating Not hard at all [facility] (I/We) worried wheaidee er (my/our) food would run out before (I/we) got money to buy more. Never true [facility] Start: 06-17-2019 Gender identity Identifies as female gender (finding) [facility] Start: 02-26-2024 Alcoholic beverage intake Ex-drinker (finding) [facility] Start: 02-26-2024 Alcohol Comment Once or twice a year [facility] Start: 11-05-2021 Sex Female (finding) [facility] Medical Equipment Procedure Code Equipment Code Equipment Original Text Equipment Identifier Dates Total cholecystectomy with exploration of common bile duct CLIP,VatorDAMIAN [employer] FDA Start: 11-11-2018 Total cholecystectomy with exploration of common bile duct CLIP,AddThis FDA Start: 11-11-2018 Total cholecystectomy with exploration of common bile duct CLIP,AddThis FDA Start: 11-11-2018 Total cholecystectomy with exploration of common bile duct CLIP,AddThis FDA Start: 11-11-2018 Total cholecystectomy with exploration of common bile duct CLIP,GERALD [employer] STEPHANIE FDA Start: 11-11-2018 Total cholecystectomy with exploration of common bile duct CLIP,GERALD BROWN FDA Start: 11-11-2018 Total cholecystectomy with exploration of common bile duct CLIP,HEMDAMIAN BROWN FDA Start: 11-11-2018 Total cholecystectomy with exploration of common bile duct CLIP,HEMADMIAN Akermin STEPHANIE FDA Start: 11-11-2018 Total cholecystectomy with exploration of common bile duct CLIP,GERALD Akermin STEPHANIE FDA Start: 11-11-2018 Total cholecystectomy with exploration of common bile duct CLIP,VatorDAMIAN Akermin STEPHANIE FDA Start: 11-11-2018 Functional Status Date Assessment Result Facility 06-19-2023 Are you deaf, or do you have serious difficulty hearing No 06/19/2023 11:21 AM Kamala Garcia RN No [facility] 06-19-2023 Are you blind, or do you have serious difficulty seeing, even when wearing glasses No 06/19/2023 11:21 AM Kamala Garcia RN No [facility] 06-19-2023 Do you have serious difficulty walking or climbing stairs No 06/19/2023 11:21 AM Kamala Garcia RN No [facility] 06-19-2023 Do you have difficul ty dressing or bathing No 06/19/2023 11:21 AM Kamala Garcia, LUCY No [facility] 06-19-2023 Because of a physica l, mental, or emotional condition, do you have difficulty doing errands alone such as visiting a physician's office or shopping No 06/19/2023 11:21 AM Kamala Garcia RN No [facility] Mental Status Date Assessment Result Facility 06-19-2023 Because of a physica l, mental, or emotional condition, do you have serious difficulty concentrating, remembering, or making decisions No 06/19/2023 11:21 AM Kamala Garcia RN No [facility] Clinical Notes 08-05-2016 to 10-20-2024 Unique Valdovinos RT(oMnae) - 10/20/2024 10:30 AM EDTTelephone Encounter - Brigette Cheng MA - 05/14/2024 3:27 PM ESTTelephone Encounter - Brigette Cheng MA - 05/14/2024 3:27 PM ESTPatient Instructions Note Date & Type Note Facility 10-20-2024 History of Presen t illness Narrative Radiology Service Progress Note DATE OF SERVICE: October 20, 2024 TIME: 11:11 AM PATIENT IDENTITY VERIFICATION COMPLETED USING TWO (2) STANDARD IDENTIFIERS: Name and Date of confirmed by patient verbally. FALL SCREENING: Has the patient had 2 falls in the last year or 1 fall with injury or currently using an Ambulatory Assistive Device (Walker, Cane, Wheelchair, Crutches, etc.)? No PATIENT GENDER DATA: Assigned female at . status: : No status: NO. PATIENT RELEVANT IMPLANT DATA REVIEWED: Yes PATIENT PRESENTS WITH AN IMPLANTABLE OR ATTACHED METABOLIC SPECIALIST: No ALLERGIES: Reviewed and unchanged CONTRAST ALLERGY: NO. EXAM: MRI - CONTRAST TYPE: GROUP II PERIPHERAL IV DATA: Ambulatory: A peripheral IV was started in the Left antecubital site with a Angio cath: 22 gauge. RADIOLOGY DEPARTMENT: MR; Exam(s) Completed: Body: Renal. Aromatherapy Administered: No SIGNATURE: ESPERANZA Mckeon) PATIENT NAME: Mary Li DATE: October 20, 2024 TIME: 11:11 AM documented in this encounter [facility] 10-20-2024 Note HNO ID: [id number] Author: UNIQUE VALDOVINOS RT(R) Service: ? Author Type: Technologist Type: Progress Notes Filed: 10/20/2024 11:11 Note Text: Radiology Service Progress Note DATE OF SERVICE: October 20, 2024 TIME: 11:11 AM PATIENT IDENTITY VERIFICATION COMPLETED USING TWO (2) STANDARD IDENTIFIERS: Name and Date of confirmed by patient verbally. FALL SCREENING: Has the patient had 2 falls in the last year or 1 fall with injury or currently using an Ambulatory Assistive Device (Walker, Cane, Wheelchair, Crutches, etc.)? No PATIENT GENDER DATA: Assigned female at . status: : No status: NO. PATIENT RELEVANT IMPLANT DATA REVIEWED: Yes PATIENT PRESENTS WITH AN IMPLANTABLE OR ATTACHED METABOLIC SPECIALIST: No ALLERGIES: Reviewed and unchanged CONTRAST ALLERGY: NO. EXAM: MRI - CONTRAST TYPE: GROUP II PERIPHERAL IV DATA: Ambulatory: A peripheral IV was started in the Left antecubital site with a Angio cath: 22 gauge. RADIOLOGY DEPARTMENT: MR; Exam(s) Completed: Body: Renal. Aromatherapy Administered: No SIGNATURE: RT Linda(R) PATIENT NAME: Mary Li DATE: October 20, 2024 TIME: 11:11 AM [facility] 08-05-2024 Note [facility] Medical Records Department [address] [place] [address] Discharge Summary 08/05/2431 MR#: [id number] Acct: [id number] Name: MARY LI Rep #: [id number] : 1940 83 From: Tae Chopra MD PCP: Dr. Andria Steve DO Status:ADM IN Location: [place] [address]1 Providers Date of Admission: 08/03/24 Date of Discharge: 08/05/24 Primary Care Physician: Dr. Andria Steve DO Consultations 08/03/24 21:10 Consult: General Surgery Routine Consulting Provider: Delvin Harris Reason for Consult: SBO EMERGENT Consult: No Notified: Yes Date Notified: 08/03/24 Time Notified: 20:35 Method of Notification: ED Physician Initiated 08/04/24 09:21 Consult: Urology Routine Consulting Provider: Osman Edwards Reason for Consult: Left Kidney EMERGENT Consult: No Notified: Yes Date Notified: 08/04/24 Time Notified: 10:53 Method of Notification: Verbal Reason For Visit: SBO, UTI, JAYA Diagnosis Discharge Diagnosis (1) SBO (small bowel obstruction): Status: Acute Code(s): K56.609 - Unspecified intestinal obstruction, unspecified as to partial versus complete obstruction (2) UTI (urinary tract infection): Status: Acute Code(s): N39.0 - Urinary tract infection, site not specified Plan Patient is an 83-year-old lady with previous abdominal surgery (sigmoidectomy for volvulus, cholecystectomy and excision of colonic polyps) who presented with abdominal pain with associated nausea and vomiting and abdominal distention. Imaging studies came back consistent with Small bowel obstruction admitted to regular nursing floor for further management 1. Small bowel obstruction ??? Suspected to be secondary to adhesions following patient previous surgery. CT of the abdomen and pelvis obtained on admission did showMultiple dilated small bowel loops, measuring up to 4.1 cm with transition point at the duodeno-jejunal junction, compatible small bowel obstruction. No pneumoperitoneum to suggest viscus perforation. Patient admitted to regular nursing floor conservative management with bowel rest, NG tube to suction pain medication and antinausea medication initiated consult was placed to general surgery patient has been seen by Dr. Harris his note and recommendations reviewed ??? Patient's symptoms resolved with conservative management 2. Acute complicated urinary tract infection with E. coli ??? Patient started on ceftriaxone urine culture sent we will follow-up on result ??? Patient was discharged home on ciprofloxacin 3. Renal mass ??? Incidentally noted mildly enhancing exophytic CT scan with 20 x 12 mm left interpolar region exophytic mildly enhancing lesion suspicious for renal cell carcinoma, plan is for patient to undergo follow-up MRI kidney protocol for further evaluation. Consult was placed to urology. Family request ??? Patient was seen in consultation by Dr Edwards with urology plans for patient to follow-up with subsequent monitoring 4. Obstructive sleep apnea -PAP therapy encouraged 5. Allergic rhinitis ??? Patient was on fluticasone did continue 6. Anxiety disorder ??? Patient is on lorazepam as needed 7. DVT prophylaxis ??? Subcu Lovenox. Medications at Discharge Home Medications echinacea 400 mg capsule 400 mg PO DAILY PRN immunity 10/15/18 omega-3 fatty acids 1,000 mg capsule 1,000 mg PO DAILY 10/15/18 multivitamin with minerals 1 ea PO DAILY 10/19/18 ondansetron HCl 4 mg tablet 4 mg PO DAILY PRN nausea and vomiting 08/04/23 dicyclomine 20 mg tablet 20 mg PO TID #270 tabs 08/27/23 d-mannose 500 mg capsule (AZO D-Mannose) 500 mg PO DAILY 08/03/24 famotidine 20 mg tablet (Acid Controller) 20 mg PO BID PRN stomach upset 08/03/24 fluticasone propionate 50 mcg/actuation nasal spray,suspension (Allergy Relief (fluticasone)) 1 - 2 spray intranasal DAILY PRN allergy symptoms 08/03/24 lorazepam 0.5 mg tablet 0.5 mg PO DAILY PRN anxiety 08/03/24 melatonin 5 mg tablet 5 - 10 mg PO DAILY PRN sleep 08/03/24 ciprofloxacin HCl 500 mg tablet 500 mg PO BID #14 tabs 08/05/24 Hospital Course Summary of Care Provided Minutes Spent on Discharge: 32 Physical Exam Narrative GENERAL: cooperative HEENT: Atraumatic; normocephalic EYES; Anicteric, Normal Conjunctiva NECK; supple, normal thyroid, RESPIRATORY: Diminished to auscultation CARDIOVASCULAR: Regular S1 S2, GI: soft, normoactive bowel sounds, : No Renal angle tenderness; EXTREMITIES: No edema, no clubbing, MUSCULOSKELETAL: no muscle wasting NEURO: Awake; no lateralizing signs. SKIN: No Rash PSYCH; Flat affect Weight / BMI Weight Weight: 56.1 kg Body Mass Index (BMI) 20.6 ABG / Lab / Microbiology Data 08/05/24 05:40 08/05/24 05:40 Laboratory: Laboratory Results - last 24 hr 08/04/24 07:47: Sodium 134 (more content not included)... [facility] 05-14-2024 Telephone encounter Note Last ov- 02/26/24 Next ov-05/27/24 [facility] 05-14-2024 Miscellaneous Notes Last ov- 02/26/24 Next ov-05/27/24 documented in this encounter [facility] 02-26-2024 History of Presen t illness Narrative Images from the original note were not included. [facility] [address] [facility] [place] [address] Dept: [phone] Dept Loc: [phone] Tadeo Napoles MD Thank you for your kind request for a neurological consultation on this patient. CHIEF COMPLAINT: Chief Complaint Patient presents with New Patient Numbness HISTORY OF PRESENT ILLNESS: The patient is a 83 y.o. person who presents with numbness and burning in her feet and legs. She is having sleep related leg cramps. She is unsteady if she gets out of bed and that makes her unsteady. She reports that it got worse after she had bowel obstruction in June. She has burning and numbness in tops and bottoms of the feet. They are worse at night. They are worse if she is seated or lying. She has to get up and move around at night. She awakens jerking her limbs at night. She reports that she is having numbness in her hands and now she is wearting wrst splints at night. It will be worse if she is gripping a steering wheel. It is involving the entire hand and sometimes refers to the elbows. She lost a lot of weight after her bowel obstruction. Past Medical History: has a past medical history of Blood vessel injury, Broken wrist (2001), Gallbladder attack (2018), and Vitreous degeneration of left eye. Past Surgical History: has a past surgical history that includes Colonoscopy w/ polypectomy (1992); Knee surgery (1996); Cataract extraction (Left, 1998); and Cataract extraction (Right, 1998). Medications: Current Outpatient Medications: Artificial Tear Ointment (DRY EYES OP), Administer into affected eye(s) as needed., Disp: , Rfl: dicyclomine (Bentyl) 20 MG tablet, Take 10 mg by mouth every 8 hours as needed., Disp: , Rfl: famotidine (Pepcid) 20 MG tablet, Take 20 mg by mouth twice a day., Disp: , Rfl: LORazepam (Ativan) 1 MG tablet, Take 1 mg by mouth every 6 hours as needed., Disp: , Rfl: Melatonin 1 MG capsule, Take by mouth., Disp: , Rfl: ondansetron (Zofran) 4 MG tablet, Take 8 mg by mouth every 8 hours as needed., Disp: , Rfl: Vitamins-Lipotropics (Lipotriad) tablet, Take 1 capsule by mouth daily., Disp: , Rfl: rOPINIRole (Requip) 0.5 MG tablet, Take 1 tablet (0.5 mg) by mouth Nightly., Disp: 90 tablet, Rfl: 0 Allergies: Seasonal Social History: Social History Socioeconomic History Marital status: Spouse name: Not on file Number of children: Not on file Years of education: Not on file Highest education level: Not on file Occupational History Not on file Tobacco Use Smoking status: Never Smokeless tobacco: Never Substance and Sexual Activity Alcohol use: Not Currently Alcohol/week: 2.0 standard drinks of alcohol Types: 2 Glasses of wine per week Comment: Once or twice a year Drug use: Never Sexual activity: Yes Other Topics Concern Not on file Social History Narrative Not on file Social Drivers of Health Financial Resource Strain: Low Risk (06/17/2023) Received from [facility] Overall Financial Resource Strain (CARDIA) Difficulty of Paying Living Expenses: Not hard at all Food Insecurity: No Food Insecurity (06/17/2023) Received from [facility] Hunger Vital Sign Worried About Running Out of Food in the Last Year: Never true Ran Out of Food in the Last Year: Never true Transportation Needs: No Transportation Needs (06/17/2023) Received from [facility] PRAPARE - Transportation Lack of Transportation (Medical): No Lack of Transportation (Non-Medical): No Physical Activity: Not on file Stress: Not on file Social Connections: Not on file Intimate Partner Violence: Not on file Housing Stability: Not on file Family History: No family history on file. REVIEW OF SYSTEMS: Review of Systems Constitutional: Negative for appetite change, chills, diaphoresis, fever and unexpected weight change. HENT: Negative for dental problem and mouth sores. Eyes: Negative for discharge and itching. Respiratory: Negative for chest tightness. Cardiovascular: Negative for chest pain and leg swelling. Gastrointestinal: Negative for rectal pain and vomiting. Endocrine: Negative for polydipsia, polyphagia and polyuria. Genitourinary: Negative for decreased urine volume, flank pain and genital sores. Musculoskeletal: Negative for arthralgias. Skin: Negative for color change. Allergic/Immunologic: Negative for food allergies and immunocompromised state. Neurological: Positive for numbness. Hematological: Negative for adenopathy. Does not bruise/bleed easily. Psychiatric/Behavioral: Negative for agitation, behavioral problems, decreased concentration, sleep disturbance and suicidal ideas. PHYSICAL EXAM: Vitals: BP (S) (!) 179/97 (BP Location: Left arm, Patient Position: Sitting, BP Cuff Size: Adult) Pulse 80 Ht 5' 5 (1.651 m) Wt 129 lb 12.8 oz (58.9 kg) BMI 21.60 kg/m General Appearance: Patient is in no apparent distress. Head is normocephalic, atraumatic Cardiovascular: Regular rate and rhythm. No heart murmurs. No carotid bruit Neurologic: Mentation: Alert and oriented x 3 to person, place and time. Speech and Language: Speech and language normal Concentration and Attention: Concentration normal Memory: Memory normal Fund of Knowledge: Fund of knowledge normal Cranial Nerves: II, III, IV, V, , VII, VIII, IX, X, XI, XII tested and were intact including fundoscopic exam (optic discs) and visual field to confrontation. Motor: Strength:Strength 5 out of 5 with normal tone Alternating Movements: Normal Cogwheel Rigidity: None Tone: Tone is normal Tremor / Involuntary Movements: None Deep Tendon Reflexes: 1 out of 4 symmetrical in all four limbs. Sensory: More sensitive to poking of palm near the index finger and loss of pinprick in anterior feet worse on the left. Coordination: Normal coordination upper and lower extremities Gait and Station: Station is normal. Gait is normal DATA CBC: No results found for: WBC, RBC, HGB, HCT, MCV, MCH, MCHC, RDW, PLT, MPV CMP: No results found for: NA, K, CL, CO2, BUN, CREATININE, AGRATIO, LABGLOM, GLUCOSE, GLU, PROT, CALCIUM, BILITOT, ALKPHOS, AST, ALT BMP: No results found for: NA, K, CL, CO2, BUN, CREATININE, CALCIUM, LABGLOM, GLUCOSE, GLU PT/INR: No results found for: PROTIME, INR PTT: No results found for: APTT, PTT[APTT} FLP: No results found for: CHLPL, TRIG, HDL, LDLCALC, LDLDIRECT TSH: No results found for: TSH VITAMIN B12: No results found for: [id number] FERRITIN: No results found for: FERRITIN ---- ASSESSMENT AND PLAN: Diagnosis Plan 1. Idiopathic neuropathy 2. Restless legs syndrome with nocturnal myoclonus Iron and TIBC Ferritin TSH Iron and TIBC Ferritin TSH 3. Sleep related leg cramps 4. Fatigue, unspecified type Iron and TIBC Ferritin TSH Iron and TIBC Ferritin TSH I have asked my staff to reach out to Dr. Steve's office to see what she has already checked in the blood work before I order any additional blood work. She is to try ropinirole 0.5 mg po at bedtime. Ropinirole at night I spent 45 minutes caring for this patient today, reviewing labs and records, seeing the patient, documenting in the record and arranging for studies. documented in this encounter [facility] 07-08-2023 History of Presen t illness Narrative HISTORY AND PHYSICAL Mary Li 1940 REFERRING PHYSICIAN: No ref. provider found CHIEF COMPLAINT: Hospital Follow Up (SBO) HPI: The patient is a 82 year old female with a complaint of follow-up from hospitalization with partial small bowel obstruction. SUMMARY OF WHAT HAPPENED WHILE I WAS IN THE HOSPITAL: You came into the hospital with abdominal pain. Work up revealed a small bowel obstruction. An NG tube was placed. You were admitted and transferred to the nursing floor for continued observation and bowel rest. Repeat imaging showed persistent dilation of the stomach and the NG tube was maintained for 1 day. X-ray the following day showed resolution of obstruction and you were passing gas and having bowel movements. Diet was advanced as tolerated. At discharge you were tolerating your diet and pain was controlled. Patient states that she is still not having normal bowel movements at home. She is also not taking MiraLAX on a daily basis. She has had no more episodes of emesis. She has had some episodes of diarrhea when she initially got home. 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 LORazepam (ATIVAN) 1 mg tablet Take 1 mg by mouth every 6 hours as needed for anxiety. docusate (COLACE) 10 mg/mL liqd Take 10 mL by mouth once daily. ondansetron (ZOFRAN) 4 mg tablet Take 8 mg by mouth every 8 hours as needed for nausea/vomiting. sulfamethoxazole-trimethoprim (BACTRIM) 400-80 mg per tablet Take 1 tablet by mouth once daily. dicyclomine (BENTYL) 20 mg tablet Take 10 mg by mouth three times a day as needed (after meals). After meals as needed sertraline (ZOLOFT) 50 mg tablet Take 50 mg by mouth once daily. omega-3 fatty acids 1,000 mg cap Take 2 g by mouth once daily. vits A-C-E-B [id number]-[id number] 5,000 unit- 120 mg-60 unit TbER Take 1 capsule by mouth once daily. Cholecalciferol, Vitamin D3, 25 mcg (1,000 unit) cap Take 1,000 Units by mouth once daily. Multivitamin capsule Take 1 capsule by mouth once daily. promethazine (PHENERGAN) 25 mg tablet Take 1 tablet by mouth every 6 hours as needed. (Patient not taking: Reported on 07/08/2023) No current facility-administered medications for this visit. ALLERGIES: Codeine and Red Dye PERSONAL HISTORY: Social History Tobacco Use Smoking status: Never Smokeless tobacco: Never Vaping Use Vaping Use: Never used Substance Use Topics Alcohol use: No Drug use: No FAMILY HISTORY: FAMILY HISTORY Problem Relation Age of Onset Cancer Father Macular Degen Mother Cataract Mother Cancer Mother Hypertension Mother Macular Degen Brother Cancer Brother Hypertension Brother Glaucoma No Family History REVIEW OF SYMPTOMS: negative except as noted above PHYSICAL EXAMINATION: General: The patient is 82 year old female, well nourished, well hydrated in no acute distress. The patient is oriented to time, place, and person. VITALS: Blood pressure 153/91, pulse 77, height 165.1 cm (5' 5), weight 65.3 kg (144 lb), SpO2 98%. HEENT: Normal cephalic, ataumatic, pupils are equally round, sclera are anicteric, mucous membranes are moist, oropharynx is clear. Neck has no masses, asymmetry or lymphadenopathy. Thyroid is unremarkable. Respiratory: Clear to auscultation and percussion. Normal respiratory excursion and pattern. Cardiac: Examination is regular rate and rhythm. Abdominal exam: Soft, nontender, with no palpable masses. No hepatosplenomegaly. No palpable hernias. Rectal exam: exam deferred Extremities: no clubbing, cyanosis or edema. No adenopathy. Other: LABORATORY VALUES: As Noted RADIOLOGIC STUDIES: As Noted Assessment IMPRESSION: Sbo (small bowel obstruction) (hcc) (primary encounter diagnosis) PLAN: Her abdomen is very benign. There is no rebound guarding or peritoneal signs. I do not think there is really any surgeries that I want to offer her at this time. It seems that she needs to be trying to manage her oral intake with adding MiraLAX and possibly some mineral oil to get some desired effects for her bowel movements. She states that she has had intermittent problems with diarrhea ever since she has had her surgery for her colovesical fistula. She wants a second opinion and she is going to see Dr. Talley at [facility] Diagnoses: (K56.609) SBO (small bowel obstruction) (HCC) (primary encounter diagnosis) A letter was sent to Dr. Andria Steve, , DO indicating the above finding for this patient. Return to Clinic: The patient is instructed to follow-up with me as needed. Federico Jade III, MD documented in this encounter [facility] 06-18-2023 Note HNO ID: [id number] Author: CHRISTO HANSON PA-C Service: General Surgery Author Type: Physician Customer Energy Specialist Type: Progress Notes Filed: 06/18/2023 14:23 Note Text: Documentation Query Based on your medical judgment of the clinical indicators outlined below, please clarify the condition: (Please type X next to your response and sign) Clinical Indicators: 06/15 HANDP: HPI:...several day history of abdominal pain along with nausea and vomiting... Physical Exam: BP 133/94 Pulse 79 Temp (Src) 98.8 (Oral) Resp 16 ... SpO2 97%... Assessment/Plan: ...small bowel obstruction ...admitted for IV fluids and n.p.o. .. Labs 06/15 Sodium: 131 06/16 Sodium: 132 06/16 Surgery: Interval History of Present Illness:.. NG in place.. Assessment/Plan ... SBO (small bowel obstruction) Plan: maintain NG today OK for ice chips (1cup per shift).. Treatment 06/15- current: Dextrose 5% in NaCl 0.9% iv infusion 75ml/hr continuous 06/15 CMP drawn 06/16 BMP drawn Please clarify the diagnosis associated with the above clinical indicators: x Hyponatremia Other, please specify [facility] 06-17-2023 Note HNO ID: [id number] Author: TYRELL FINK MD Service: General Surgery Author Type: Physician Customer Energy Specialist Type: Progress Notes Filed: 06/17/2023 14:53 Note Text: Attestation signed by Tyrell Fink MD at 06/17/2023 2:53 PM Attending Note I have personally performed a face to face assessment of the patient and have reviewed the QUANG note. I performed a substantive portion of the visit including all aspects of the following. My barajas findings include: 82 yo female w SBO Cont NG NPO IVF Repeat xray tomorrow Encourage oob Signature: Tyrell Fink MD Date: 06/17/2023 Time: 2:52 PM SURGICAL SERVICES PROGRESS NOTE SERVICE DATE: 06/17/2023 SERVICE TIME: 1120 Subjective CHIEF COMPLAINT: abdominal pain INTERVAL HISTORY OF PRESENT ILLNESS: Patient with improvement in pain and nausea. NG in place. Current Facility-Administered Medications Medication Dose Route Frequency sertraline 50 mg tab(s) (ZOLOFT) 50 mg ORAL DAILY sulfamethoxazole-trimethoprim 400-80 mg 1 tablet (BACTRIM) 1 tablet ORAL DAILY heparin 5,000 Units injection 5,000 Units SUBCUTANEOUS q 12 H NaCl 0.9% iv flush bag 20 mL INTRAVENOUS PRN dextrose 5% in NaCl 0.9% iv infusion 75 mL/hr INTRAVENOUS CONTINUOUS ondansetron orally disintegrating 4 mg tab(s) (ZOFRAN ODT) 4 mg ORAL q 6 H PRN Or ondansetron (PF) 4 mg injection (ZOFRAN) 4 mg INTRAVENOUS q 6 H PRN acetaminophen 325 mg tab(s) (TYLENOL) 325 mg ORAL q 6 H PRN HYDROmorphone 0.5 mg injection (DILAUDID) 0.5 mg INTRAVENOUS q 4 H PRN zolpidem 2.5 mg tab(s) (AMBIEN) 2.5 mg ORAL AT BEDTIME PRN Objective PHYSICAL EXAM: BP 153/76 Pulse 73 Temp (Src) 99 (Oral) Resp 16 Ht 5' 5 (1.65m) Wt 144 lb 2.9 oz (65.4kg) SpO2 92% BMI 23.99 kg/(m2). O2 Therapy: Room Air Physical Exam Performed GENERAL: Alert, no distress, cooperative ABDOMEN: Abdomen soft, non-tender NG: cannister with 300cc dark green, bilious fluid DATA: Diagnostic tests reviewed for today's visit: Most recent labs and imaging results. CBC, Coags, BMP, Mg, Phos Recent Labs 06/17/23 0656 06/16/23 1202 WBC 6.38 8.58 HB 12.1 13.8 HCT 37.3 42.1 PLT 218 235 NA 132* 131* K 4.0 4.6 CHLOR 97 93* CO2 28 24 BUN 15 18 CREAT 0.86 1.09* GLUC 116* 115* CA 8.6 9.2 Liver Function, Amylase, AND Lipase Recent Labs 06/16/23 1202 TPROT 7.5 ALB 4.4 ALT 18 AST 30 ALKPHOS 82 TBILI 0.8 LIPASE 29 LACT 1.1 Assessment/Plan Patient Active Hospital Problem List: SBO (small bowel obstruction) (HCC) (06/16/2023) Plan: -maintain NG today -OK for ice chips (1cup per shift) -repeat AXR in AM -plan discussed with patient, RN and Dr. Fink SIGNATURE: Christo Hanson PA-C PATIENT NAME: Mary Li DATE: June 17, 2023 TIME: 11:32 AM [facility] 06-17-2023 Note HNO ID: [id number] Author: CARLINE BERNAL RN Service: Care Management Author Type: Registered Nurse Type: Care Mgt Initial Assessment Filed: 06/17/2023 11:01 Note Text: CARE MANAGEMENT: ASSESSMENT AND DISCHARGE PLAN SERVICE DATE: June 17, 2023 SERVICE TIME: 10:58 AM PCP: Andria Steve DO, DO Primary Contact: Extended Emergency Contact Information Primary Emergency Contact: Mercedes Yusuf Mobile Relation: Daughter Admission Status: Inpatient Insurance Provider: [employer] MEDICARE PPO Discharge Planning requested by: Per Department Practice Potential Transition Plans No Services Indicated Advance Directives Current Advance Directive: Health Care Power of Burial Needs Salesperson;Living Will In Chart: Yes Up To Date and Valid: Yes Current Living Arrangements and Support Lives with: Alone Type of Residence: Private Residence (House) Does the patient have to climb stairs at home?: stairs outside the home;stairs within the home Support: Children How do you manage to accomplish the following: Independent: Ambulation;Bathe/Shower;Dress;Me als/Meal Prep;Going to the bathroom;Medication Management;Transportation to appointments/community Current Services/Equipment Current Post-Acute Service(s): None Discharge Planning Patient Goal(s): Independent living, Be able to go home [place] of Choice Explained: [place] of Choice Given: No Reason Not Given: No placements necessary Are you interested in bedside delivery of your medications? No,preferred community Pharmacy is [facility]. Discharge Planning Participant(s): Patient Caregiver Assessment: Caregiver is ready, willing and able to meet the patient's needs as recommended by the inter-professional team: No Caregiver needed Transport at Discharge: Transportation Arrangements: Car Needs Prior to Discharge: Needs Prior to Discharge: To Be Determined Post-Acute Discharge Plan: EMR reviewed and CM assessment complete. 82 year old patient admitted for small bowel obstruction. LUCY KABA met with the patient at bedside to discuss discharge planning needs. She reportedly lives alone since her spouse last summer in a ranch style home with a basement and three steps to enter. Patient states she was [employer] and has DME that her spouse used if needed. No skilled needs are anticipated at discharge. CM assigned will continue to follow. SIGNATURE: Carline Bernal RN PATIENT NAME: Mary Li DATE: June 17, 2023 TIME: 10:57 AM CONTACT #: [phone] [facility] 06-17-2023 Note HNO ID: [id number] Author: ELISE ZAZUETA RN Service: ? Author Type: Registered Nurse Type: Nursing Progress Note Filed: 06/16/2023 23:02 Note Text: 2300: report given to oncoming rn [facility] 12-07-2021 Instructions Leatha Cassidy OD - 12/07/2021 9:08 AM EDT ASSESSMENT/PLAN: 1. Subconjunctival hemorrhage, left - ICD9: 372.72, ICD10: H11.32 (primary diagnosis) Discussed self-limiting nature of problem in absence of underlying system complications such as hypertension, diabetes, and use of blood thinners. Patient reports all stable. Patient will monitor for slow resolution. Instruct patient to immediately report any change in condition outside of expected and discussed symptoms. 2. Dry eyes - ICD9: 375.15, ICD10: H04.123 Continue to use her tears as needed. Keep her original recall documented in this encounter [facility] 12-07-2021 History of Presen t illness Narrative ASSESSMENT/PLAN: 1. Subconjunctival hemorrhage, left - ICD9: 372.72, ICD10: H11.32 (primary diagnosis) Discussed self-limiting nature of problem in absence of underlying system complications such as hypertension, diabetes, and use of blood thinners. Patient reports all stable. Patient will monitor for slow resolution. Instruct patient to immediately report any change in condition outside of expected and discussed symptoms. 2. Dry eyes - ICD9: 375.15, ICD10: H04.123 Continue to use her tears as needed. Keep her original recall Leatha Cassidy OD I have confirmed and edited as necessary the relevant ophthalmic history, ROS, and the neuro exam findings as obtained by others. I have seen and examined this patient. documented in this encounter [facility] 07-13-2021 Instructions Leatha Cassidy, OD - 07/13/2021 9:16 AM EDT ASSESSMENT/PLAN: 1. 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 2. Dry eyes - ICD9: 375.15, ICD10: H04.123 Recommended the use of artificial tears four times per day to maintain good vision and comfort. Discussed contacting the office if there is a change in comfort or vision. Suggested Systane Complete. 3. PVD (posterior vitreous detachment), both eyes - ICD9: 379.21, ICD10: H43.813 Vitreal floaters stable both eyes. Retinas flat and intact with no apparent retinal tear or traction. Discussed symptoms of retinal tear/detachment and if seen patient will return to clinic without delay. 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 Recommended yearly exams. documented in this encounter [facility] 07-13-2021 History of Presen t illness Narrative ASSESSMENT/PLAN: 1. 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 2. Dry eyes - ICD9: 375.15, ICD10: H04.123 Recommended the use of artificial tears four times per day to maintain good vision and comfort. Discussed contacting the office if there is a change in comfort or vision. Suggested Systane Complete. 3. PVD (posterior vitreous detachment), both eyes - ICD9: 379.21, ICD10: H43.813 Vitreal floaters stable both eyes. Retinas flat and intact with no apparent retinal tear or traction. Discussed symptoms of retinal tear/detachment and if seen patient will return to clinic without delay. 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 Recommended yearly exams. Leatha Cassidy, SANDRA documented in this encounter [facility] 08-05-2016 History of Past i llness Narrative Problem Noted Date Resolved Date Hypokalemia 08/05/2016 08/05/2016 Hypophosphatemia 08/05/2016 08/05/2016 Respiratory depression 08/02/2016 7 documented as of this encounter (statuses as of 07/13/2021) [facility] History of Past illness Narrative* Problem Noted Date Resolved Date Hypokalemia 08/05/2016 08/05/2016 Hypophosphatemia 08/05/2016 08/05/2016 Respiratory depression 08/02/2016 7 documented as of this encounter (statuses as of 12/07/2021) [facility] History of Past illness Narrative* Problem Noted Date Diagnosed Date Resolved Date Hypokalemia 08/05/2016 08/05/2016 Hypophosphatemia 08/05/2016 08/05/2016 Respiratory depression 08/02/201608/02 documented as of this encounter (statuses as of 07/08/2023) [facility] Ophthalmic migraine- Primary Other forms of migraine, without mention of intractable migraine without mention of status migrainosus Dry eyes Tear film insufficiency, unspecified PVD (posterior vitreous detachment), both eyes Vitreous degeneration 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 [facility] Subconjunctival hemorrhage, left- Primary Dry eyes Tear film insufficiency, unspecified [facility] noteNo assessment information availableWPro[facility] Work Phone: Evaluation note* Diagnosis SBO (small bowel obstruction) (HCC)- Primary Unspecified intestinal obstruction [facility] Idiopathic neuropathy- Primary Other specified idiopathic peripheral neuropathy Restless legs syndrome with nocturnal myoclonus Sleep related leg cramps Fatigue, unspecified type [facility] Name Dates Details How to Access Health Informa tion Online using Patient Portal and [employer] Apps Indication:Nonsmoker Start:01-May-2020 Instruction Type:Patient Education Patient Instructions Indication:Nonsmoker Start:01-May-2020 Instruction Type:Provider Instructions for Treatment How to access health informa tion online Indication:BMI 25.0-25.9,adult Start:10-Feb-2020 Instruction Type:Patient Education How to access health informa tion online - Detail Indication:BMI 25.0-25.9,adult Start:10-Feb-2020 Instruction Type:Patient Education Patient Instructions Indication:BMI 25.0-25.9,adult Start:10-Feb-2020 Instruction Type:Provider Instructions for Treatment How to access health informa tion online Indication:Nonsmoker Start:20-Jan-2020 Instruction Type:Patient Education How to access health informa tion online - Detail Indication:Nonsmoker Start:20-Jan-2020 Instruction Type:Patient Education Patient Instructions Indication:Nonsmoker Start:20-Jan-2020 Instruction Type:Provider Instructions for Treatment How to access health informa tion online Indication:BMI 25.0-25.9,adult Start:08-Apr-2019 Instruction Type:Patient Education How to access health informa tion online - Detail Indication:BMI 25.0-25.9,adult Start:08-Apr-2019 Instruction Type:Patient Education Patient Instructions Indication:BMI 25.0-25.9,adult Start:08-Apr-2019 Instruction Type:Provider Instructions for Treatment How to access health informa tion online Indication:Body mass index 26.0-26.9, adult Start:12-Oct-2018 Instruction Type:Patient Education How to access health informa tion online - Detail Indication:Body mass index 26.0-26.9, adult Start:12-Oct-2018 Instruction Type:Patient Education Patient Instructions Indication:Right upper quadrant pain Start:12-Oct-2018 Instruction Type:Provider Instructions for Treatment How to access health informa tion online Indication:Hematuria Start:06-Nov-2016 Instruction Type:Patient Education How to access health informa tion online - Detail Indication:Hematuria Start:06-Nov-2016 Instruction Type:Patient Education Patient Instructions Indication:Hematuria Start:06-Nov-2016 Instruction Type:Provider Instructions for Treatment How to access health informa tion online - Detail Indication:BMI 26.0-26.9,adult Start:17-Oct-2016 Instruction Type:Patient Education Patient Instructions Indication:BMI 26.0-26.9,adult Start:17-Oct-2016 Instruction Type:Provider Instructions for Treatment How to access health informa tion online Indication:Nonsmoker Start:22-May-2016 Instruction Type:Patient Education How to access health informa tion online - Detail Indication:Nonsmoker Start:22-May-2016 Instruction Type:Patient Education Patient Instructions Indication:Nonsmoker Start:22-May-2016 Instruction Type:Provider Instructions for Treatment How to access health informa tion online Indication:Flank pain Start:15-May-2016 Instruction Type:Patient Education How to access health informa tion online - Detail Indication:Flank pain Start:15-May-2016 Instruction Type:Patient Education Patient Instructions Indication:Flank pain Start:15-May-2016 Instruction Type:Provider Instructions for Treatment Patient Instructions Indication:Annual Medicare Phyiscal WITHOUT abnormal findings (Renamed from Encounter for general adult medical examination without abnormal findings) Start:29-Dec-2015 Instruction Type:Provider Instructions for Treatment How to access health informa tion online Indication:Hematuria Start:12-Dec-2015 Instruction Type:Patient Education How to access health informa tion online - Detail Indication:Hematuria Start:12-Dec-2015 Instruction Type:Patient Education Patient Instructions Indication:Hematuria Start:12-Dec-2015 Instruction Type:Provider Instructions for Treatment How to access health informa tion online Indication:Pyelonephritis Start:06-Dec-2015 Instruction Type:Patient Education How to access health informa tion online - Detail Indication:Pyelonephritis Start:06-Dec-2015 Instruction Type:Patient Education Patient Instructions Indication:Pyelonephritis Start:06-Dec-2015 Instruction Type:Provider Instructions for Treatment How to access health informa tion online Indication:UTI (urinary tract infection) Start:23-Nov-2015 Instruction Type:Patient Education How to access health informa tion online - Detail Indication:UTI (urinary tract infection) Start:23-Nov-2015 Instruction Type:Patient Education Patient Instructions Indication:UTI (urinary tract infection) Start:23-Nov-2015 Instruction Type:Provider Instructions for Treatment [facility] Work Phone: Instructions* Name Dates Details How to Access Health Informa tion Online using Patient Portal and [employer] Apps Indication:Nonsmoker Start:01-May-2020 Instruction Type:Patient Education Patient Instructions Indication:Nonsmoker Start:01-May-2020 Instruction Type:Provider Instructions for Treatment How to access health informa tion online Indication:BMI 25.0-25.9,adult Start:10-Feb-2020 Instruction Type:Patient Education How to access health informa tion online - Detail Indication:BMI 25.0-25.9,adult Start:10-Feb-2020 Instruction Type:Patient Education Patient Instructions Indication:BMI 25.0-25.9,adult Start:10-Feb-2020 Instruction Type:Provider Instructions for Treatment How to access health informa tion online Indication:Nonsmoker Start:20-Jan-2020 Instruction Type:Patient Education How to access health informa tion online - Detail Indication:Nonsmoker Start:20-Jan-2020 Instruction Type:Patient Education Patient Instructions Indication:Nonsmoker Start:20-Jan-2020 Instruction Type:Provider Instructions for Treatment How to access health informa tion online Indication:BMI 25.0-25.9,adult Start:08-Apr-2019 Instruction Type:Patient Education How to access health informa tion online - Detail Indication:BMI 25.0-25.9,adult Start:08-Apr-2019 Instruction Type:Patient Education Patient Instructions Indication:BMI 25.0-25.9,adult Start:08-Apr-2019 Instruction Type:Provider Instructions for Treatment How to access health informa tion online Indication:Body mass index 26.0-26.9, adult Start:12-Oct-2018 Instruction Type:Patient Education How to access health informa tion online - Detail Indication:Body mass index 26.0-26.9, adult Start:12-Oct-2018 Instruction Type:Patient Education Patient Instructions Indication:Right upper quadrant pain Start:12-Oct-2018 Instruction Type:Provider Instructions for Treatment How to access health informa tion online Indication:Hematuria Start:06-Nov-2016 Instruction Type:Patient Education How to access health informa tion online - Detail Indication:Hematuria Start:06-Nov-2016 Instruction Type:Patient Education Patient Instructions Indication:Hematuria Start:06-Nov-2016 Instruction Type:Provider Instructions for Treatment How to access health informa tion online - Detail Indication:BMI 26.0-26.9,adult Start:17-Oct-2016 Instruction Type:Patient Education Patient Instructions Indication:BMI 26.0-26.9,adult Start:17-Oct-2016 Instruction Type:Provider Instructions for Treatment How to access health informa tion online Indication:Nonsmoker Start:22-May-2016 Instruction Type:Patient Education How to access health informa tion online - Detail Indication:Nonsmoker Start:22-May-2016 Instruction Type:Patient Education Patient Instructions Indication:Nonsmoker Start:22-May-2016 Instruction Type:Provider Instructions for Treatment How to access health informa tion online Indication:Flank pain Start:15-May-2016 Instruction Type:Patient Education How to access health informa tion online - Detail Indication:Flank pain Start:15-May-2016 Instruction Type:Patient Education Patient Instructions Indication:Flank pain Start:15-May-2016 Instruction Type:Provider Instructions for Treatment Patient Instructions Indication:Annual Medicare Phyiscal WITHOUT abnormal findings (Renamed from Encounter for general adult medical examination without abnormal findings) Start:29-Dec-2015 Instruction Type:Provider Instructions for Treatment How to access health informa tion online Indication:Hematuria Start:12-Dec-2015 Instruction Type:Patient Education How to access health informa tion online - Detail Indication:Hematuria Start:12-Dec-2015 Instruction Type:Patient Education Patient Instructions Indication:Hematuria Start:12-Dec-2015 Instruction Type:Provider Instructions for Treatment How to access health informa tion online Indication:Pyelonephritis Start:06-Dec-2015 Instruction Type:Patient Education How to access health informa tion online - Detail Indication:Pyelonephritis Start:06-Dec-2015 Instruction Type:Patient Education Patient Instructions Indication:Pyelonephritis Start:06-Dec-2015 Instruction Type:Provider Instructions for Treatment How to access health informa tion online Indication:UTI (urinary tract infection) Start:23-Nov-2015 Instruction Type:Patient Education How to access health informa tion online - Detail Indication:UTI (urinary tract infection) Start:23-Nov-2015 Instruction Type:Patient Education Patient Instructions Indication:UTI (urinary tract infection) Start:23-Nov-2015 Instruction Type:Provider Instructions for Treatment [facility] Work Phone: Instructions* Name Dates Details Patient Instructions Indication:Nonsmoker Start:25-Apr-2022 Instruction Type:Provider Instructions for Treatment How to Access Health Informa tion Online using Patient Portal and [employer] Apps Indication:Nonsmoker Start:25-Apr-2022 Instruction Type:Patient Education How to Access Health Informa tion Online using Patient Portal and [employer] Apps Indication:Nonsmoker Start:01-May-2020 Instruction Type:Patient Education Patient Instructions Indication:Nonsmoker Start:01-May-2020 Instruction Type:Provider Instructions for Treatment How to access health informa tion online Indication:BMI 25.0-25.9,adult Start:10-Feb-2020 Instruction Type:Patient Education How to access health informa tion online - Detail Indication:BMI 25.0-25.9,adult Start:10-Feb-2020 Instruction Type:Patient Education Patient Instructions Indication:BMI 25.0-25.9,adult Start:10-Feb-2020 Instruction Type:Provider Instructions for Treatment How to access health informa tion online Indication:Nonsmoker Start:20-Jan-2020 Instruction Type:Patient Education How to access health informa tion online - Detail Indication:Nonsmoker Start:20-Jan-2020 Instruction Type:Patient Education Patient Instructions Indication:Nonsmoker Start:20-Jan-2020 Instruction Type:Provider Instructions for Treatment How to access health informa tion online Indication:BMI 25.0-25.9,adult Start:08-Apr-2019 Instruction Type:Patient Education How to access health informa tion online - Detail Indication:BMI 25.0-25.9,adult Start:08-Apr-2019 Instruction Type:Patient Education Patient Instructions Indication:BMI 25.0-25.9,adult Start:08-Apr-2019 Instruction Type:Provider Instructions for Treatment How to access health informa tion online Indication:Body mass index 26.0-26.9, adult Start:12-Oct-2018 Instruction Type:Patient Education How to access health informa tion online - Detail Indication:Body mass index 26.0-26.9, adult Start:12-Oct-2018 Instruction Type:Patient Education Patient Instructions Indication:Right upper quadrant pain Start:12-Oct-2018 Instruction Type:Provider Instructions for Treatment How to access health informa tion online Indication:Hematuria Start:06-Nov-2016 Instruction Type:Patient Education How to access health informa tion online - Detail Indication:Hematuria Start:06-Nov-2016 Instruction Type:Patient Education Patient Instructions Indication:Hematuria Start:06-Nov-2016 Instruction Type:Provider Instructions for Treatment How to access health informa tion online - Detail Indication:BMI 26.0-26.9,adult Start:17-Oct-2016 Instruction Type:Patient Education Patient Instructions Indication:BMI 26.0-26.9,adult Start:17-Oct-2016 Instruction Type:Provider Instructions for Treatment How to access health informa tion online Indication:Nonsmoker Start:22-May-2016 Instruction Type:Patient Education How to access health informa tion online - Detail Indication:Nonsmoker Start:22-May-2016 Instruction Type:Patient Education Patient Instructions Indication:Nonsmoker Start:22-May-2016 Instruction Type:Provider Instructions for Treatment How to access health informa tion online Indication:Flank pain Start:15-May-2016 Instruction Type:Patient Education How to access health informa tion online - Detail Indication:Flank pain Start:15-May-2016 Instruction Type:Patient Education Patient Instructions Indication:Flank pain Start:15-May-2016 Instruction Type:Provider Instructions for Treatment Patient Instructions Indication:Annual Medicare Phyiscal WITHOUT abnormal findings (Renamed from Encounter for general adult medical examination without abnormal findings) Start:29-Dec-2015 Instruction Type:Provider Instructions for Treatment How to access health informa tion online Indication:Hematuria Start:12-Dec-2015 Instruction Type:Patient Education How to access health informa tion online - Detail Indication:Hematuria Start:12-Dec-2015 Instruction Type:Patient Education Patient Instructions Indication:Hematuria Start:12-Dec-2015 Instruction Type:Provider Instructions for Treatment How to access health informa tion online Indication:Pyelonephritis Start:06-Dec-2015 Instruction Type:Patient Education How to access health informa tion online - Detail Indication:Pyelonephritis Start:06-Dec-2015 Instruction Type:Patient Education Patient Instructions Indication:Pyelonephritis Start:06-Dec-2015 Instruction Type:Provider Instructions for Treatment How to access health informa tion online Indication:UTI (urinary tract infection) Start:23-Nov-2015 Instruction Type:Patient Education How to access health informa tion online - Detail Indication:UTI (urinary tract infection) Start:23-Nov-2015 Instruction Type:Patient Education Patient Instructions Indication:UTI (urinary tract infection) Start:23-Nov-2015 Instruction Type:Provider Instructions for Treatment [facility]; [facility] Work Phone: Instructions* Name Dates Details Patient Instructions Indication:UTI symptoms (Renamed from Symptoms of urinary tract infection) Start:20-Nov-2022 Instruction Type:Provider Instructions for Treatment How to Access Health Informa tion Online using Patient Portal and [employer] Apps Indication:UTI symptoms (Renamed from Symptoms of urinary tract infection) Start:20-Nov-2022 Instruction Type:Patient Education Patient Instructions Indication:Nonsmoker Start:25-Apr-2022 Instruction Type:Provider Instructions for Treatment How to Access Health Informa tion Online using Patient Portal and [employer] Apps Indication:Nonsmoker Start:25-Apr-2022 Instruction Type:Patient Education How to Access Health Informa tion Online using Patient Portal and [employer] Apps Indication:Nonsmoker Start:01-May-2020 Instruction Type:Patient Education Patient Instructions Indication:Nonsmoker Start:01-May-2020 Instruction Type:Provider Instructions for Treatment How to access health informa tion online Indication:BMI 25.0-25.9,adult Start:10-Feb-2020 Instruction Type:Patient Education How to access health informa tion online - Detail Indication:BMI 25.0-25.9,adult Start:10-Feb-2020 Instruction Type:Patient Education Patient Instructions Indication:BMI 25.0-25.9,adult Start:10-Feb-2020 Instruction Type:Provider Instructions for Treatment How to access health informa tion online Indication:Nonsmoker Start:20-Jan-2020 Instruction Type:Patient Education How to access health informa tion online - Detail Indication:Nonsmoker Start:20-Jan-2020 Instruction Type:Patient Education Patient Instructions Indication:Nonsmoker Start:20-Jan-2020 Instruction Type:Provider Instructions for Treatment How to access health informa tion online Indication:BMI 25.0-25.9,adult Start:08-Apr-2019 Instruction Type:Patient Education How to access health informa tion online - Detail Indication:BMI 25.0-25.9,adult Start:08-Apr-2019 Instruction Type:Patient Education Patient Instructions Indication:BMI 25.0-25.9,adult Start:08-Apr-2019 Instruction Type:Provider Instructions for Treatment How to access health informa tion online Indication:Body mass index 26.0-26.9, adult Start:12-Oct-2018 Instruction Type:Patient Education How to access health informa tion online - Detail Indication:Body mass index 26.0-26.9, adult Start:12-Oct-2018 Instruction Type:Patient Education Patient Instructions Indication:Right upper quadrant pain Start:12-Oct-2018 Instruction Type:Provider Instructions for Treatment How to access health informa tion online Indication:Hematuria Start:06-Nov-2016 Instruction Type:Patient Education How to access health informa tion online - Detail Indication:Hematuria Start:06-Nov-2016 Instruction Type:Patient Education Patient Instructions Indication:Hematuria Start:06-Nov-2016 Instruction Type:Provider Instructions for Treatment How to access health informa tion online - Detail Indication:BMI 26.0-26.9,adult Start:17-Oct-2016 Instruction Type:Patient Education Patient Instructions Indication:BMI 26.0-26.9,adult Start:17-Oct-2016 Instruction Type:Provider Instructions for Treatment How to access health informa tion online Indication:Nonsmoker Start:22-May-2016 Instruction Type:Patient Education How to access health informa tion online - Detail Indication:Nonsmoker Start:22-May-2016 Instruction Type:Patient Education Patient Instructions Indication:Nonsmoker Start:22-May-2016 Instruction Type:Provider Instructions for Treatment How to access health informa tion online Indication:Flank pain Start:15-May-2016 Instruction Type:Patient Education How to access health informa tion online - Detail Indication:Flank pain Start:15-May-2016 Instruction Type:Patient Education Patient Instructions Indication:Flank pain Start:15-May-2016 Instruction Type:Provider Instructions for Treatment Patient Instructions Indication:Annual Medicare Phyiscal WITHOUT abnormal findings (Renamed from Encounter for general adult medical examination without abnormal findings) Start:29-Dec-2015 Instruction Type:Provider Instructions for Treatment How to access health informa tion online Indication:Hematuria Start:12-Dec-2015 Instruction Type:Patient Education How to access health informa tion online - Detail Indication:Hematuria Start:12-Dec-2015 Instruction Type:Patient Education Patient Instructions Indication:Hematuria Start:12-Dec-2015 Instruction Type:Provider Instructions for Treatment How to access health informa tion online Indication:Pyelonephritis Start:06-Dec-2015 Instruction Type:Patient Education How to access health informa tion online - Detail Indication:Pyelonephritis Start:06-Dec-2015 Instruction Type:Patient Education Patient Instructions Indication:Pyelonephritis Start:06-Dec-2015 Instruction Type:Provider Instructions for Treatment How to access health informa tion online Indication:UTI (urinary tract infection) Start:23-Nov-2015 Instruction Type:Patient Education How to access health informa tion online - Detail Indication:UTI (urinary tract infection) Start:23-Nov-2015 Instruction Type:Patient Education Patient Instructions Indication:UTI (urinary tract infection) Start:23-Nov-2015 Instruction Type:Provider Instructions for Treatment [facility] Work Phone: Instructions* Name Dates Details Patient Instructions Indication:UTI symptoms (Renamed from Symptoms of urinary tract infection) Start:20-Nov-2022 Instruction Type:Provider Instructions for Treatment How to Access Health Informa tion Online using Patient Portal and [employer] Apps Indication:UTI symptoms (Renamed from Symptoms of urinary tract infection) Start:20-Nov-2022 Instruction Type:Patient Education Patient Instructions Indication:Nonsmoker Start:25-Apr-2022 Instruction Type:Provider Instructions for Treatment How to Access Health Informa tion Online using Patient Portal and [employer] Apps Indication:Nonsmoker Start:25-Apr-2022 Instruction Type:Patient Education How to Access Health Informa tion Online using Patient Portal and [employer] Apps Indication:Nonsmoker Start:01-May-2020 Instruction Type:Patient Education Patient Instructions Indication:Nonsmoker Start:01-May-2020 Instruction Type:Provider Instructions for Treatment How to access health informa tion online Indication:BMI 25.0-25.9,adult Start:10-Feb-2020 Instruction Type:Patient Education How to access health informa tion online - Detail Indication:BMI 25.0-25.9,adult Start:10-Feb-2020 Instruction Type:Patient Education Patient Instructions Indication:BMI 25.0-25.9,adult Start:10-Feb-2020 Instruction Type:Provider Instructions for Treatment How to access health informa tion online Indication:Nonsmoker Start:20-Jan-2020 Instruction Type:Patient Education How to access health informa tion online - Detail Indication:Nonsmoker Start:20-Jan-2020 Instruction Type:Patient Education Patient Instructions Indication:Nonsmoker Start:20-Jan-2020 Instruction Type:Provider Instructions for Treatment How to access health informa tion online Indication:BMI 25.0-25.9,adult Start:08-Apr-2019 Instruction Type:Patient Education How to access health informa tion online - Detail Indication:BMI 25.0-25.9,adult Start:08-Apr-2019 Instruction Type:Patient Education Patient Instructions Indication:BMI 25.0-25.9,adult Start:08-Apr-2019 Instruction Type:Provider Instructions for Treatment How to access health informa tion online Indication:Body mass index 26.0-26.9, adult Start:12-Oct-2018 Instruction Type:Patient Education How to access health informa tion online - Detail Indication:Body mass index 26.0-26.9, adult Start:12-Oct-2018 Instruction Type:Patient Education Patient Instructions Indication:Right upper quadrant pain Start:12-Oct-2018 Instruction Type:Provider Instructions for Treatment How to access health informa tion online Indication:Hematuria Start:06-Nov-2016 Instruction Type:Patient Education How to access health informa tion online - Detail Indication:Hematuria Start:06-Nov-2016 Instruction Type:Patient Education Patient Instructions Indication:Hematuria Start:06-Nov-2016 Instruction Type:Provider Instructions for Treatment How to access health informa tion online - Detail Indication:BMI 26.0-26.9,adult Start:17-Oct-2016 Instruction Type:Patient Education Patient Instructions Indication:BMI 26.0-26.9,adult Start:17-Oct-2016 Instruction Type:Provider Instructions for Treatment How to access health informa tion online Indication:Nonsmoker Start:22-May-2016 Instruction Type:Patient Education How to access health informa tion online - Detail Indication:Nonsmoker Start:22-May-2016 Instruction Type:Patient Education Patient Instructions Indication:Nonsmoker Start:22-May-2016 Instruction Type:Provider Instructions for Treatment How to access health informa tion online Indication:Flank pain Start:15-May-2016 Instruction Type:Patient Education How to access health informa tion online - Detail Indication:Flank pain Start:15-May-2016 Instruction Type:Patient Education Patient Instructions Indication:Flank pain Start:15-May-2016 Instruction Type:Provider Instructions for Treatment Patient Instructions Indication:Annual Medicare Phyiscal WITHOUT abnormal findings (Renamed from Encounter for general adult medical examination without abnormal findings) Start:29-Dec-2015 Instruction Type:Provider Instructions for Treatment How to access health informa tion online Indication:Hematuria Start:12-Dec-2015 Instruction Type:Patient Education How to access health informa tion online - Detail Indication:Hematuria Start:12-Dec-2015 Instruction Type:Patient Education Patient Instructions Indication:Hematuria Start:12-Dec-2015 Instruction Type:Provider Instructions for Treatment How to access health informa tion online Indication:Pyelonephritis Start:06-Dec-2015 Instruction Type:Patient Education How to access health informa tion online - Detail Indication:Pyelonephritis Start:06-Dec-2015 Instruction Type:Patient Education Patient Instructions Indication:Pyelonephritis Start:06-Dec-2015 Instruction Type:Provider Instructions for Treatment How to access health informa tion online Indication:UTI (urinary tract infection) Start:23-Nov-2015 Instruction Type:Patient Education How to access health informa tion online - Detail Indication:UTI (urinary tract infection) Start:23-Nov-2015 Instruction Type:Patient Education Patient Instructions Indication:UTI (urinary tract infection) Start:23-Nov-2015 Instruction Type:Provider Instructions for Treatment [facility] Work Phone: Instructions* Name Dates Details How to Access Health Informa tion Online using Patient Portal and [employer] Apps Indication:BMI 25.0-25.9,adult Start:05-Dec-2022 Instruction Type:Patient Education Patient Instructions Indication:UTI symptoms (Renamed from Symptoms of urinary tract infection) Start:20-Nov-2022 Instruction Type:Provider Instructions for Treatment How to Access Health Informa tion Online using Patient Portal and [employer] Apps Indication:UTI symptoms (Renamed from Symptoms of urinary tract infection) Start:20-Nov-2022 Instruction Type:Patient Education Patient Instructions Indication:Nonsmoker Start:25-Apr-2022 Instruction Type:Provider Instructions for Treatment How to Access Health Informa tion Online using Patient Portal and [employer] Apps Indication:Nonsmoker Start:25-Apr-2022 Instruction Type:Patient Education How to Access Health Informa tion Online using Patient Portal and [employer] Apps Indication:Nonsmoker Start:01-May-2020 Instruction Type:Patient Education Patient Instructions Indication:Nonsmoker Start:01-May-2020 Instruction Type:Provider Instructions for Treatment How to access health informa tion online Indication:BMI 25.0-25.9,adult Start:10-Feb-2020 Instruction Type:Patient Education How to access health informa tion online - Detail Indication:BMI 25.0-25.9,adult Start:10-Feb-2020 Instruction Type:Patient Education Patient Instructions Indication:BMI 25.0-25.9,adult Start:10-Feb-2020 Instruction Type:Provider Instructions for Treatment How to access health informa tion online Indication:Nonsmoker Start:20-Jan-2020 Instruction Type:Patient Education How to access health informa tion online - Detail Indication:Nonsmoker Start:20-Jan-2020 Instruction Type:Patient Education Patient Instructions Indication:Nonsmoker Start:20-Jan-2020 Instruction Type:Provider Instructions for Treatment How to access health informa tion online Indication:BMI 25.0-25.9,adult Start:08-Apr-2019 Instruction Type:Patient Education How to access health informa tion online - Detail Indication:BMI 25.0-25.9,adult Start:08-Apr-2019 Instruction Type:Patient Education Patient Instructions Indication:BMI 25.0-25.9,adult Start:08-Apr-2019 Instruction Type:Provider Instructions for Treatment How to access health informa tion online Indication:Body mass index 26.0-26.9, adult Start:12-Oct-2018 Instruction Type:Patient Education How to access health informa tion online - Detail Indication:Body mass index 26.0-26.9, adult Start:12-Oct-2018 Instruction Type:Patient Education Patient Instructions Indication:Right upper quadrant pain Start:12-Oct-2018 Instruction Type:Provider Instructions for Treatment How to access health informa tion online Indication:Hematuria Start:06-Nov-2016 Instruction Type:Patient Education How to access health informa tion online - Detail Indication:Hematuria Start:06-Nov-2016 Instruction Type:Patient Education Patient Instructions Indication:Hematuria Start:06-Nov-2016 Instruction Type:Provider Instructions for Treatment How to access health informa tion online - Detail Indication:BMI 26.0-26.9,adult Start:17-Oct-2016 Instruction Type:Patient Education Patient Instructions Indication:BMI 26.0-26.9,adult Start:17-Oct-2016 Instruction Type:Provider Instructions for Treatment How to access health informa tion online Indication:Nonsmoker Start:22-May-2016 Instruction Type:Patient Education How to access health informa tion online - Detail Indication:Nonsmoker Start:22-May-2016 Instruction Type:Patient Education Patient Instructions Indication:Nonsmoker Start:22-May-2016 Instruction Type:Provider Instructions for Treatment How to access health informa tion online Indication:Flank pain Start:15-May-2016 Instruction Type:Patient Education How to access health informa tion online - Detail Indication:Flank pain Start:15-May-2016 Instruction Type:Patient Education Patient Instructions Indication:Flank pain Start:15-May-2016 Instruction Type:Provider Instructions for Treatment Patient Instructions Indication:Annual Medicare Phyiscal WITHOUT abnormal findings (Renamed from Encounter for general adult medical examination without abnormal findings) Start:29-Dec-2015 Instruction Type:Provider Instructions for Treatment How to access health informa tion online Indication:Hematuria Start:12-Dec-2015 Instruction Type:Patient Education How to access health informa tion online - Detail Indication:Hematuria Start:12-Dec-2015 Instruction Type:Patient Education Patient Instructions Indication:Hematuria Start:12-Dec-2015 Instruction Type:Provider Instructions for Treatment How to access health informa tion online Indication:Pyelonephritis Start:06-Dec-2015 Instruction Type:Patient Education How to access health informa tion online - Detail Indication:Pyelonephritis Start:06-Dec-2015 Instruction Type:Patient Education Patient Instructions Indication:Pyelonephritis Start:06-Dec-2015 Instruction Type:Provider Instructions for Treatment How to access health informa tion online Indication:UTI (urinary tract infection) Start:23-Nov-2015 Instruction Type:Patient Education How to access health informa tion online - Detail Indication:UTI (urinary tract infection) Start:23-Nov-2015 Instruction Type:Patient Education Patient Instructions Indication:UTI (urinary tract infection) Start:23-Nov-2015 Instruction Type:Provider Instructions for Treatment [facility] Work Phone: Instructions* Name Dates Details How to Access Health Informa tion Online using Patient Portal and [employer] Apps Indication:BMI 25.0-25.9,adult Start:05-Dec-2022 Instruction Type:Patient Education Patient Instructions Indication:UTI symptoms (Renamed from Symptoms of urinary tract infection) Start:20-Nov-2022 Instruction Type:Provider Instructions for Treatment How to Access Health Informa tion Online using Patient Portal and [employer] Apps Indication:UTI symptoms (Renamed from Symptoms of urinary tract infection) Start:20-Nov-2022 Instruction Type:Patient Education Patient Instructions Indication:Nonsmoker Start:25-Apr-2022 Instruction Type:Provider Instructions for Treatment How to Access Health Informa tion Online using Patient Portal and [employer] Apps Indication:Nonsmoker Start:25-Apr-2022 Instruction Type:Patient Education How to Access Health Informa tion Online using Patient Portal and [employer] Apps Indication:Nonsmoker Start:01-May-2020 Instruction Type:Patient Education Patient Instructions Indication:Nonsmoker Start:01-May-2020 Instruction Type:Provider Instructions for Treatment How to access health informa tion online Indication:BMI 25.0-25.9,adult Start:10-Feb-2020 Instruction Type:Patient Education How to access health informa tion online - Detail Indication:BMI 25.0-25.9,adult Start:10-Feb-2020 Instruction Type:Patient Education Patient Instructions Indication:BMI 25.0-25.9,adult Start:10-Feb-2020 Instruction Type:Provider Instructions for Treatment How to access health informa tion online Indication:Nonsmoker Start:20-Jan-2020 Instruction Type:Patient Education How to access health informa tion online - Detail Indication:Nonsmoker Start:20-Jan-2020 Instruction Type:Patient Education Patient Instructions Indication:Nonsmoker Start:20-Jan-2020 Instruction Type:Provider Instructions for Treatment How to access health informa tion online Indication:BMI 25.0-25.9,adult Start:08-Apr-2019 Instruction Type:Patient Education How to access health informa tion online - Detail Indication:BMI 25.0-25.9,adult Start:08-Apr-2019 Instruction Type:Patient Education Patient Instructions Indication:BMI 25.0-25.9,adult Start:08-Apr-2019 Instruction Type:Provider Instructions for Treatment How to access health informa tion online Indication:Body mass index 26.0-26.9, adult Start:12-Oct-2018 Instruction Type:Patient Education How to access health informa tion online - Detail Indication:Body mass index 26.0-26.9, adult Start:12-Oct-2018 Instruction Type:Patient Education Patient Instructions Indication:Right upper quadrant pain Start:12-Oct-2018 Instruction Type:Provider Instructions for Treatment How to access health informa tion online Indication:Hematuria Start:06-Nov-2016 Instruction Type:Patient Education How to access health informa tion online - Detail Indication:Hematuria Start:06-Nov-2016 Instruction Type:Patient Education Patient Instructions Indication:Hematuria Start:06-Nov-2016 Instruction Type:Provider Instructions for Treatment How to access health informa tion online - Detail Indication:BMI 26.0-26.9,adult Start:17-Oct-2016 Instruction Type:Patient Education Patient Instructions Indication:BMI 26.0-26.9,adult Start:17-Oct-2016 Instruction Type:Provider Instructions for Treatment How to access health informa tion online Indication:Nonsmoker Start:22-May-2016 Instruction Type:Patient Education How to access health informa tion online - Detail Indication:Nonsmoker Start:22-May-2016 Instruction Type:Patient Education Patient Instructions Indication:Nonsmoker Start:22-May-2016 Instruction Type:Provider Instructions for Treatment How to access health informa tion online Indication:Flank pain Start:15-May-2016 Instruction Type:Patient Education How to access health informa tion online - Detail Indication:Flank pain Start:15-May-2016 Instruction Type:Patient Education Patient Instructions Indication:Flank pain Start:15-May-2016 Instruction Type:Provider Instructions for Treatment Patient Instructions Indication:Annual Medicare Phyiscal WITHOUT abnormal findings (Renamed from Encounter for general adult medical examination without abnormal findings) Start:29-Dec-2015 Instruction Type:Provider Instructions for Treatment How to access health informa tion online Indication:Hematuria Start:12-Dec-2015 Instruction Type:Patient Education How to access health informa tion online - Detail Indication:Hematuria Start:12-Dec-2015 Instruction Type:Patient Education Patient Instructions Indication:Hematuria Start:12-Dec-2015 Instruction Type:Provider Instructions for Treatment How to access health informa tion online Indication:Pyelonephritis Start:06-Dec-2015 Instruction Type:Patient Education How to access health informa tion online - Detail Indication:Pyelonephritis Start:06-Dec-2015 Instruction Type:Patient Education Patient Instructions Indication:Pyelonephritis Start:06-Dec-2015 Instruction Type:Provider Instructions for Treatment How to access health informa tion online Indication:UTI (urinary tract infection) Start:23-Nov-2015 Instruction Type:Patient Education How to access health informa tion online - Detail Indication:UTI (urinary tract infection) Start:23-Nov-2015 Instruction Type:Patient Education Patient Instructions Indication:UTI (urinary tract infection) Start:23-Nov-2015 Instruction Type:Provider Instructions for Treatment [facility] Work Phone: Instructions* Name Dates Details How to Access Health Informa tion Online using Patient Portal and [employer] Apps Indication:BMI 25.0-25.9,adult Start:05-Dec-2022 Instruction Type:Patient Education Patient Instructions Indication:UTI symptoms (Renamed from Symptoms of urinary tract infection) Start:20-Nov-2022 Instruction Type:Provider Instructions for Treatment How to Access Health Informa tion Online using Patient Portal and [employer] Apps Indication:UTI symptoms (Renamed from Symptoms of urinary tract infection) Start:20-Nov-2022 Instruction Type:Patient Education Patient Instructions Indication:Nonsmoker Start:25-Apr-2022 Instruction Type:Provider Instructions for Treatment How to Access Health Informa tion Online using Patient Portal and [employer] Apps Indication:Nonsmoker Start:25-Apr-2022 Instruction Type:Patient Education How to Access Health Informa tion Online using Patient Portal and [employer] Apps Indication:Nonsmoker Start:01-May-2020 Instruction Type:Patient Education Patient Instructions Indication:Nonsmoker Start:01-May-2020 Instruction Type:Provider Instructions for Treatment How to access health informa tion online Indication:BMI 25.0-25.9,adult Start:10-Feb-2020 Instruction Type:Patient Education How to access health informa tion online - Detail Indication:BMI 25.0-25.9,adult Start:10-Feb-2020 Instruction Type:Patient Education Patient Instructions Indication:BMI 25.0-25.9,adult Start:10-Feb-2020 Instruction Type:Provider Instructions for Treatment How to access health informa tion online Indication:Nonsmoker Start:20-Jan-2020 Instruction Type:Patient Education How to access health informa tion online - Detail Indication:Nonsmoker Start:20-Jan-2020 Instruction Type:Patient Education Patient Instructions Indication:Nonsmoker Start:20-Jan-2020 Instruction Type:Provider Instructions for Treatment How to access health informa tion online Indication:BMI 25.0-25.9,adult Start:08-Apr-2019 Instruction Type:Patient Education How to access health informa tion online - Detail Indication:BMI 25.0-25.9,adult Start:08-Apr-2019 Instruction Type:Patient Education Patient Instructions Indication:BMI 25.0-25.9,adult Start:08-Apr-2019 Instruction Type:Provider Instructions for Treatment How to access health informa tion online Indication:Body mass index 26.0-26.9, adult Start:12-Oct-2018 Instruction Type:Patient Education How to access health informa tion online - Detail Indication:Body mass index 26.0-26.9, adult Start:12-Oct-2018 Instruction Type:Patient Education Patient Instructions Indication:Right upper quadrant pain Start:12-Oct-2018 Instruction Type:Provider Instructions for Treatment How to access health informa tion online Indication:Hematuria Start:06-Nov-2016 Instruction Type:Patient Education How to access health informa tion online - Detail Indication:Hematuria Start:06-Nov-2016 Instruction Type:Patient Education Patient Instructions Indication:Hematuria Start:06-Nov-2016 Instruction Type:Provider Instructions for Treatment How to access health informa tion online - Detail Indication:BMI 26.0-26.9,adult Start:17-Oct-2016 Instruction Type:Patient Education Patient Instructions Indication:BMI 26.0-26.9,adult Start:17-Oct-2016 Instruction Type:Provider Instructions for Treatment How to access health informa tion online Indication:Nonsmoker Start:22-May-2016 Instruction Type:Patient Education How to access health informa tion online - Detail Indication:Nonsmoker Start:22-May-2016 Instruction Type:Patient Education Patient Instructions Indication:Nonsmoker Start:22-May-2016 Instruction Type:Provider Instructions for Treatment How to access health informa tion online Indication:Flank pain Start:15-May-2016 Instruction Type:Patient Education How to access health informa tion online - Detail Indication:Flank pain Start:15-May-2016 Instruction Type:Patient Education Patient Instructions Indication:Flank pain Start:15-May-2016 Instruction Type:Provider Instructions for Treatment Patient Instructions Indication:Annual Medicare Phyiscal WITHOUT abnormal findings (Renamed from Encounter for general adult medical examination without abnormal findings) Start:29-Dec-2015 Instruction Type:Provider Instructions for Treatment How to access health informa tion online Indication:Hematuria Start:12-Dec-2015 Instruction Type:Patient Education How to access health informa tion online - Detail Indication:Hematuria Start:12-Dec-2015 Instruction Type:Patient Education Patient Instructions Indication:Hematuria Start:12-Dec-2015 Instruction Type:Provider Instructions for Treatment How to access health informa tion online Indication:Pyelonephritis Start:06-Dec-2015 Instruction Type:Patient Education How to access health informa tion online - Detail Indication:Pyelonephritis Start:06-Dec-2015 Instruction Type:Patient Education Patient Instructions Indication:Pyelonephritis Start:06-Dec-2015 Instruction Type:Provider Instructions for Treatment How to access health informa tion online Indication:UTI (urinary tract infection) Start:23-Nov-2015 Instruction Type:Patient Education How to access health informa tion online - Detail Indication:UTI (urinary tract infection) Start:23-Nov-2015 Instruction Type:Patient Education Patient Instructions Indication:UTI (urinary tract infection) Start:23-Nov-2015 Instruction Type:Provider Instructions for Treatment [facility] Work Phone: Instructions* Name Dates Details How to Access Health Informa tion Online using Patient Portal and [employer] Apps Indication:BMI 25.0-25.9,adult Start:05-Dec-2022 Instruction Type:Patient Education Patient Instructions Indication:UTI symptoms (Renamed from Symptoms of urinary tract infection) Start:20-Nov-2022 Instruction Type:Provider Instructions for Treatment How to Access Health Informa tion Online using Patient Portal and [employer] Apps Indication:UTI symptoms (Renamed from Symptoms of urinary tract infection) Start:20-Nov-2022 Instruction Type:Patient Education Patient Instructions Indication:Nonsmoker Start:25-Apr-2022 Instruction Type:Provider Instructions for Treatment How to Access Health Informa tion Online using Patient Portal and [employer] Apps Indication:Nonsmoker Start:25-Apr-2022 Instruction Type:Patient Education How to Access Health Informa tion Online using Patient Portal and [employer] Apps Indication:Nonsmoker Start:01-May-2020 Instruction Type:Patient Education Patient Instructions Indication:Nonsmoker Start:01-May-2020 Instruction Type:Provider Instructions for Treatment How to access health informa tion online Indication:BMI 25.0-25.9,adult Start:10-Feb-2020 Instruction Type:Patient Education How to access health informa tion online - Detail Indication:BMI 25.0-25.9,adult Start:10-Feb-2020 Instruction Type:Patient Education Patient Instructions Indication:BMI 25.0-25.9,adult Start:10-Feb-2020 Instruction Type:Provider Instructions for Treatment How to access health informa tion online Indication:Nonsmoker Start:20-Jan-2020 Instruction Type:Patient Education How to access health informa tion online - Detail Indication:Nonsmoker Start:20-Jan-2020 Instruction Type:Patient Education Patient Instructions Indication:Nonsmoker Start:20-Jan-2020 Instruction Type:Provider Instructions for Treatment How to access health informa tion online Indication:BMI 25.0-25.9,adult Start:08-Apr-2019 Instruction Type:Patient Education How to access health informa tion online - Detail Indication:BMI 25.0-25.9,adult Start:08-Apr-2019 Instruction Type:Patient Education Patient Instructions Indication:BMI 25.0-25.9,adult Start:08-Apr-2019 Instruction Type:Provider Instructions for Treatment How to access health informa tion online Indication:Body mass index 26.0-26.9, adult Start:12-Oct-2018 Instruction Type:Patient Education How to access health informa tion online - Detail Indication:Body mass index 26.0-26.9, adult Start:12-Oct-2018 Instruction Type:Patient Education Patient Instructions Indication:Right upper quadrant pain Start:12-Oct-2018 Instruction Type:Provider Instructions for Treatment How to access health informa tion online Indication:Hematuria Start:06-Nov-2016 Instruction Type:Patient Education How to access health informa tion online - Detail Indication:Hematuria Start:06-Nov-2016 Instruction Type:Patient Education Patient Instructions Indication:Hematuria Start:06-Nov-2016 Instruction Type:Provider Instructions for Treatment How to access health informa tion online - Detail Indication:BMI 26.0-26.9,adult Start:17-Oct-2016 Instruction Type:Patient Education Patient Instructions Indication:BMI 26.0-26.9,adult Start:17-Oct-2016 Instruction Type:Provider Instructions for Treatment How to access health informa tion online Indication:Nonsmoker Start:22-May-2016 Instruction Type:Patient Education How to access health informa tion online - Detail Indication:Nonsmoker Start:22-May-2016 Instruction Type:Patient Education Patient Instructions Indication:Nonsmoker Start:22-May-2016 Instruction Type:Provider Instructions for Treatment How to access health informa tion online Indication:Flank pain Start:15-May-2016 Instruction Type:Patient Education How to access health informa tion online - Detail Indication:Flank pain Start:15-May-2016 Instruction Type:Patient Education Patient Instructions Indication:Flank pain Start:15-May-2016 Instruction Type:Provider Instructions for Treatment Patient Instructions Indication:Annual Medicare Phyiscal WITHOUT abnormal findings (Renamed from Encounter for general adult medical examination without abnormal findings) Start:29-Dec-2015 Instruction Type:Provider Instructions for Treatment How to access health informa tion online Indication:Hematuria Start:12-Dec-2015 Instruction Type:Patient Education How to access health informa tion online - Detail Indication:Hematuria Start:12-Dec-2015 Instruction Type:Patient Education Patient Instructions Indication:Hematuria Start:12-Dec-2015 Instruction Type:Provider Instructions for Treatment How to access health informa tion online Indication:Pyelonephritis Start:06-Dec-2015 Instruction Type:Patient Education How to access health informa tion online - Detail Indication:Pyelonephritis Start:06-Dec-2015 Instruction Type:Patient Education Patient Instructions Indication:Pyelonephritis Start:06-Dec-2015 Instruction Type:Provider Instructions for Treatment How to access health informa tion online Indication:UTI (urinary tract infection) Start:23-Nov-2015 Instruction Type:Patient Education How to access health informa tion online - Detail Indication:UTI (urinary tract infection) Start:23-Nov-2015 Instruction Type:Patient Education Patient Instructions Indication:UTI (urinary tract infection) Start:23-Nov-2015 Instruction Type:Provider Instructions for Treatment [facility] Work Phone: Instructions* Name Dates Details How to Access Health Informa tion Online using Patient Portal and [employer] Apps Indication:BMI 25.0-25.9,adult Start:05-Dec-2022 Instruction Type:Patient Education Patient Instructions Indication:UTI symptoms (Renamed from Symptoms of urinary tract infection) Start:20-Nov-2022 Instruction Type:Provider Instructions for Treatment How to Access Health Informa tion Online using Patient Portal and [employer] Apps Indication:UTI symptoms (Renamed from Symptoms of urinary tract infection) Start:20-Nov-2022 Instruction Type:Patient Education Patient Instructions Indication:Nonsmoker Start:25-Apr-2022 Instruction Type:Provider Instructions for Treatment How to Access Health Informa tion Online using Patient Portal and [employer] Apps Indication:Nonsmoker Start:25-Apr-2022 Instruction Type:Patient Education How to Access Health Informa tion Online using Patient Portal and [employer] Apps Indication:Nonsmoker Start:01-May-2020 Instruction Type:Patient Education Patient Instructions Indication:Nonsmoker Start:01-May-2020 Instruction Type:Provider Instructions for Treatment How to access health informa tion online Indication:BMI 25.0-25.9,adult Start:10-Feb-2020 Instruction Type:Patient Education How to access health informa tion online - Detail Indication:BMI 25.0-25.9,adult Start:10-Feb-2020 Instruction Type:Patient Education Patient Instructions Indication:BMI 25.0-25.9,adult Start:10-Feb-2020 Instruction Type:Provider Instructions for Treatment How to access health informa tion online Indication:Nonsmoker Start:20-Jan-2020 Instruction Type:Patient Education How to access health informa tion online - Detail Indication:Nonsmoker Start:20-Jan-2020 Instruction Type:Patient Education Patient Instructions Indication:Nonsmoker Start:20-Jan-2020 Instruction Type:Provider Instructions for Treatment How to access health informa tion online Indication:BMI 25.0-25.9,adult Start:08-Apr-2019 Instruction Type:Patient Education How to access health informa tion online - Detail Indication:BMI 25.0-25.9,adult Start:08-Apr-2019 Instruction Type:Patient Education Patient Instructions Indication:BMI 25.0-25.9,adult Start:08-Apr-2019 Instruction Type:Provider Instructions for Treatment How to access health informa tion online Indication:Body mass index 26.0-26.9, adult Start:12-Oct-2018 Instruction Type:Patient Education How to access health informa tion online - Detail Indication:Body mass index 26.0-26.9, adult Start:12-Oct-2018 Instruction Type:Patient Education Patient Instructions Indication:Right upper quadrant pain Start:12-Oct-2018 Instruction Type:Provider Instructions for Treatment How to access health informa tion online Indication:Hematuria Start:06-Nov-2016 Instruction Type:Patient Education How to access health informa tion online - Detail Indication:Hematuria Start:06-Nov-2016 Instruction Type:Patient Education Patient Instructions Indication:Hematuria Start:06-Nov-2016 Instruction Type:Provider Instructions for Treatment How to access health informa tion online - Detail Indication:BMI 26.0-26.9,adult Start:17-Oct-2016 Instruction Type:Patient Education Patient Instructions Indication:BMI 26.0-26.9,adult Start:17-Oct-2016 Instruction Type:Provider Instructions for Treatment How to access health informa tion online Indication:Nonsmoker Start:22-May-2016 Instruction Type:Patient Education How to access health informa tion online - Detail Indication:Nonsmoker Start:22-May-2016 Instruction Type:Patient Education Patient Instructions Indication:Nonsmoker Start:22-May-2016 Instruction Type:Provider Instructions for Treatment How to access health informa tion online Indication:Flank pain Start:15-May-2016 Instruction Type:Patient Education How to access health informa tion online - Detail Indication:Flank pain Start:15-May-2016 Instruction Type:Patient Education Patient Instructions Indication:Flank pain Start:15-May-2016 Instruction Type:Provider Instructions for Treatment Patient Instructions Indication:Annual Medicare Phyiscal WITHOUT abnormal findings (Renamed from Encounter for general adult medical examination without abnormal findings) Start:29-Dec-2015 Instruction Type:Provider Instructions for Treatment How to access health informa tion online Indication:Hematuria Start:12-Dec-2015 Instruction Type:Patient Education How to access health informa tion online - Detail Indication:Hematuria Start:12-Dec-2015 Instruction Type:Patient Education Patient Instructions Indication:Hematuria Start:12-Dec-2015 Instruction Type:Provider Instructions for Treatment How to access health informa tion online Indication:Pyelonephritis Start:06-Dec-2015 Instruction Type:Patient Education How to access health informa tion online - Detail Indication:Pyelonephritis Start:06-Dec-2015 Instruction Type:Patient Education Patient Instructions Indication:Pyelonephritis Start:06-Dec-2015 Instruction Type:Provider Instructions for Treatment How to access health informa tion online Indication:UTI (urinary tract infection) Start:23-Nov-2015 Instruction Type:Patient Education How to access health informa tion online - Detail Indication:UTI (urinary tract infection) Start:23-Nov-2015 Instruction Type:Patient Education Patient Instructions Indication:UTI (urinary tract infection) Start:23-Nov-2015 Instruction Type:Provider Instructions for Treatment [facility] Work Phone: reason for visit Narrative* MRI/CT (Routine) - Closed Specialty Diagnoses / Procedures Referred By Raphael hernandez Referred To Contact Radiology / RADIO MRI [facility] Diagnoses Mass of kidney of unknown nature MRI Abdomen W/WO Contrast Mass of kidney of unknown nature N28.89 Andria Steve, DO-order in scanned docs Procedures MRI ABDOMEN W/O & W/CONTRAST MATERIAL MRI WWO ABD 300 Andria Steve, [address] [place] [address] Phone: tel: fax: Radiology [address] [place] [address] Phone: tel: fax: Referral ID Status Reason Start Date Expiration Date Visits Re quested Visits Authorized [id number] Closed 10/20/2024 12/19/2024 1 1 [facility] Summary Purpose Family History No Family History Records FoundUnknown Family Member Name Dates Details Brother 1 Comments:colon and brain can cer Status:Active Father Comments:prostate cancer Status:Active Mother Comments:colon cancer Status:Active Unknown Family Member Name Dates Details Brother 1 Comments:colon and brain can cer Status:Active Father Comments:prostate cancer Status:Active Mother Comments:colon cancer Status:Active Unknown Family Member Name Dates Details Brother 1 Comments:colon and brain can cer Status:Active Father Comments:prostate cancer Status:Active Mother Comments:colon cancer Status:Active Unknown Family Member Name Dates Details Brother 1 Comments:colon and brain can cer Status:Active Father Comments:prostate cancer Status:Active Mother Comments:colon cancer Status:Active Unknown Family Member Name Dates Details Brother 1 Comments:colon and brain can cer Status:Active Father Comments:prostate cancer Status:Active Mother Comments:colon cancer Status:Active Unknown Family Member Name Dates Details Brother 1 Comments:colon and brain can cer Status:Active Father Comments:prostate cancer Status:Active Mother Comments:colon cancer Status:Active Unknown Family Member Name Dates Details Brother 1 Comments:colon and brain can cer Status:Active Father Comments:prostate cancer Status:Active Mother Comments:colon cancer Status:Active Unknown Family Member Name Dates Details Brother 1 Comments:colon and brain can cer Status:Active Father Comments:prostate cancer Status:Active Mother Comments:colon cancer Status:Active Unknown Family Member Name Dates Details Brother 1 Comments:colon and brain can cer Status:Active Father Comments:prostate cancer Status:Active Mother Comments:colon cancer Status:Active Unknown Family Member Name Dates Details Brother 1 Comments:colon and brain can cer Status:Active Father Comments:prostate cancer Status:Active Mother Comments:colon cancer Status:Active Unknown Family Member Name Dates Details Brother 1 Comments:colon and brain can cer Status:Active Father Comments:prostate cancer Status:Active Mother Comments:colon cancer Status:Active Unknown Family Member Name Dates Details Brother 1 Comments:colon and brain can cer Status:Active Father Comments:prostate cancer Status:Active Mother Comments:colon cancer Status:Active Unknown Family Member Name Dates Details Brother 1 Comments:colon and brain can cer Status:Active Father Comments:prostate cancer Status:Active Mother Comments:colon cancer Status:Active Unknown Family Member Name Dates Details Brother 1 Comments:colon and brain can cer Status:Active Father Comments:prostate cancer Status:Active Mother Comments:colon cancer Status:Active Unknown Family Member Name Dates Details Brother 1 Comments:colon and brain can cer Status:Active Father Comments:prostate cancer Status:Active Mother Comments:colon cancer Status:Active Unknown Family Member Name Dates Details Brother 1 Comments:colon and brain can cer Status:Active Father Comments:prostate cancer Status:Active Mother Comments:colon cancer Status:Active Unknown Family Member Name Dates Details Brother 1 Comments:colon and brain can cer Status:Active Father Comments:prostate cancer Status:Active Mother Comments:colon cancer Status:Active Relationship Condition Age at Onset Recorded Date/T clive father Malignant neoplasm Unknown brother Malignant neoplasm Unknown Seizure Unknown mother Malignant neoplasm of colon Unknown Unknown Family Member Name Dates Details Brother 1 Comments:colon and brain can cer Status:Active Father Comments:prostate cancer Status:Active Mother Comments:colon cancer Status:Active Unknown Family Member Name Dates Details Brother 1 Comments:colon and brain can cer Status:Active Father Comments:prostate cancer Status:Active Mother Comments:colon cancer Status:Active Unknown Family Member Name Dates Details Brother 1 Comments:colon and brain can cer Status:Active Father Comments:prostate cancer Status:Active Mother Comments:colon cancer Status:Active Unknown Family Member Name Dates Details Brother 1 Comments:colon and brain can cer Status:Active Father Comments:prostate cancer Status:Active Mother Comments:colon cancer Status:Active Unknown Family Member Name Dates Details Brother 1 Comments:colon and brain can cer Status:Active Father Comments:prostate cancer Status:Active Mother Comments:colon cancer Status:Active Advance Directives No Advanced Directives Records Found Name Dates Details Immunization Registry [place] - Effective on 05/23/2020. Expiration date unspecified Effective:23-May-2020 Documents on File Type Date Recorded Patient Email Deployment Specialist Expl anation Advance Directive(s) 06/28/2019 10:04 AM Advance Directive(s) 06/15/2019 11:12 AM Advance Directive(s) 06/11/2019 1:44 PM Advance Directive(s) 05/19/2019 1:32 PM Advance Directive(s) 07/29/2016 1:14 PM Advance Directive(s) 07/03/2016 1:56 PM Advance Directive(s) 07/03/2016 9:39 AM Documents on File Type Date Recorded Patient Email Deployment Specialist Expl anation Advance Directive(s) 07/03/2016 9:39 AM Name Dates Details Immunization Registry [place] - Effective on 05/23/2020. Expiration date unspecified Effective:23-May-2020 Name Dates Details Immunization Registry [place] - Effective on 05/23/2020. Expiration date unspecified Effective:23-May-2020 Name Dates Details Immunization Registry [place] - Effective on 05/23/2020. Expiration date unspecified Effective:23-May-2020 Name Dates Details Immunization Registry [place] - Effective on 05/23/2020. Expiration date unspecified Effective:23-May-2020 Advance Directive Response Recorded Date/ Time Advance Directives Yes October 19 19 8:48am Living Will Yes 2018 8:42am Power of Burial Needs Salesperson Yes November 04 9 8:42am Name Dates Details Immunization Registry [place] - Effective on 05/23/2020. Expiration date unspecified Effective:23-May-2020 Name Dates Details Immunization Registry [place] - Effective on 05/23/2020. Expiration date unspecified Effective:23-May-2020 Name Dates Details Immunization Registry [place] - Effective on 05/23/2020. Expiration date unspecified Effective:23-May-2020 Name Dates Details Immunization Registry [place] - Effective on 05/23/2020. Expiration date unspecified Effective:23-May-2020 Advance Directive Response Recorded Date/ Time Advance Directives Yes October 19 19 7:48am Living Will Yes 2018 7:42am Power of Burial Needs Salesperson Yes November 04 9 7:42am Documents on File Type Date Recorded Patient Email Deployment Specialist Expl anation Advance Directive(s) 07/03/2016 9:39 AM Instructions Name Dates Details How to access health informa tion online Indication:Body mass index 26.0-26.9, adult Start:12-Oct-2018 Instruction Type:Patient Education How to access health informa tion online - Detail Indication:Body mass index 26.0-26.9, adult Start:12-Oct-2018 Instruction Type:Patient Education Patient Instructions Indication:Right upper quadrant pain Start:12-Oct-2018 Instruction Type:Provider Instructions for Treatment How to access health informa tion online Indication:Hematuria Start:06-Nov-2016 Instruction Type:Patient Education How to access health informa tion online - Detail Indication:Hematuria Start:06-Nov-2016 Instruction Type:Patient Education Patient Instructions Indication:Hematuria Start:06-Nov-2016 Instruction Type:Provider Instructions for Treatment How to access health informa tion online - Detail Indication:BMI 26.0-26.9,adult Start:17-Oct-2016 Instruction Type:Patient Education Patient Instructions Indication:BMI 26.0-26.9,adult Start:17-Oct-2016 Instruction Type:Provider Instructions for Treatment How to access health informa tion online Indication:Nonsmoker Start:22-May-2016 Instruction Type:Patient Education How to access health informa tion online - Detail Indication:Nonsmoker Start:22-May-2016 Instruction Type:Patient Education Patient Instructions Indication:Nonsmoker Start:22-May-2016 Instruction Type:Provider Instructions for Treatment How to access health informa tion online Indication:Flank pain Start:15-May-2016 Instruction Type:Patient Education How to access health informa tion online - Detail Indication:Flank pain Start:15-May-2016 Instruction Type:Patient Education Patient Instructions Indication:Flank pain Start:15-May-2016 Instruction Type:Provider Instructions for Treatment Patient Instructions Indication:Annual Medicare Phyiscal WITHOUT abnormal findings (Renamed from Encounter for general adult medical examination without abnormal findings) Start:29-Dec-2015 Instruction Type:Provider Instructions for Treatment How to access health informa tion online Indication:Hematuria Start:12-Dec-2015 Instruction Type:Patient Education How to access health informa tion online - Detail Indication:Hematuria Start:12-Dec-2015 Instruction Type:Patient Education Patient Instructions Indication:Hematuria Start:12-Dec-2015 Instruction Type:Provider Instructions for Treatment How to access health informa tion online Indication:Pyelonephritis Start:06-Dec-2015 Instruction Type:Patient Education How to access health informa tion online - Detail Indication:Pyelonephritis Start:06-Dec-2015 Instruction Type:Patient Education Patient Instructions Indication:Pyelonephritis Start:06-Dec-2015 Instruction Type:Provider Instructions for Treatment How to access health informa tion online Indication:UTI (urinary tract infection) Start:23-Nov-2015 Instruction Type:Patient Education How to access health informa tion online - Detail Indication:UTI (urinary tract infection) Start:23-Nov-2015 Instruction Type:Patient Education Patient Instructions Indication:UTI (urinary tract infection) Start:23-Nov-2015 Instruction Type:Provider Instructions for Treatment Name Dates Details How to access health informa tion online Indication:Body mass index 26.0-26.9, adult Start:12-Oct-2018 Instruction Type:Patient Education How to access health informa tion online - Detail Indication:Body mass index 26.0-26.9, adult Start:12-Oct-2018 Instruction Type:Patient Education Patient Instructions Indication:Right upper quadrant pain Start:12-Oct-2018 Instruction Type:Provider Instructions for Treatment How to access health informa tion online Indication:Hematuria Start:06-Nov-2016 Instruction Type:Patient Education How to access health informa tion online - Detail Indication:Hematuria Start:06-Nov-2016 Instruction Type:Patient Education Patient Instructions Indication:Hematuria Start:06-Nov-2016 Instruction Type:Provider Instructions for Treatment How to access health informa tion online - Detail Indication:BMI 26.0-26.9,adult Start:17-Oct-2016 Instruction Type:Patient Education Patient Instructions Indication:BMI 26.0-26.9,adult Start:17-Oct-2016 Instruction Type:Provider Instructions for Treatment How to access health informa tion online Indication:Nonsmoker Start:22-May-2016 Instruction Type:Patient Education How to access health informa tion online - Detail Indication:Nonsmoker Start:22-May-2016 Instruction Type:Patient Education Patient Instructions Indication:Nonsmoker Start:22-May-2016 Instruction Type:Provider Instructions for Treatment How to access health informa tion online Indication:Flank pain Start:15-May-2016 Instruction Type:Patient Education How to access health informa tion online - Detail Indication:Flank pain Start:15-May-2016 Instruction Type:Patient Education Patient Instructions Indication:Flank pain Start:15-May-2016 Instruction Type:Provider Instructions for Treatment Patient Instructions Indication:Annual Medicare Phyiscal WITHOUT abnormal findings (Renamed from Encounter for general adult medical examination without abnormal findings) Start:29-Dec-2015 Instruction Type:Provider Instructions for Treatment How to access health informa tion online Indication:Hematuria Start:12-Dec-2015 Instruction Type:Patient Education How to access health informa tion online - Detail Indication:Hematuria Start:12-Dec-2015 Instruction Type:Patient Education Patient Instructions Indication:Hematuria Start:12-Dec-2015 Instruction Type:Provider Instructions for Treatment How to access health informa tion online Indication:Pyelonephritis Start:06-Dec-2015 Instruction Type:Patient Education How to access health informa tion online - Detail Indication:Pyelonephritis Start:06-Dec-2015 Instruction Type:Patient Education Patient Instructions Indication:Pyelonephritis Start:06-Dec-2015 Instruction Type:Provider Instructions for Treatment How to access health informa tion online Indication:UTI (urinary tract infection) Start:23-Nov-2015 Instruction Type:Patient Education How to access health informa tion online - Detail Indication:UTI (urinary tract infection) Start:23-Nov-2015 Instruction Type:Patient Education Patient Instructions Indication:UTI (urinary tract infection) Start:23-Nov-2015 Instruction Type:Provider Instructions for Treatment Name Dates Details How to access health informa tion online Indication:Body mass index 26.0-26.9, adult Start:12-Oct-2018 Instruction Type:Patient Education How to access health informa tion online - Detail Indication:Body mass index 26.0-26.9, adult Start:12-Oct-2018 Instruction Type:Patient Education Patient Instructions Indication:Right upper quadrant pain Start:12-Oct-2018 Instruction Type:Provider Instructions for Treatment How to access health informa tion online Indication:Hematuria Start:06-Nov-2016 Instruction Type:Patient Education How to access health informa tion online - Detail Indication:Hematuria Start:06-Nov-2016 Instruction Type:Patient Education Patient Instructions Indication:Hematuria Start:06-Nov-2016 Instruction Type:Provider Instructions for Treatment How to access health informa tion online - Detail Indication:BMI 26.0-26.9,adult Start:17-Oct-2016 Instruction Type:Patient Education Patient Instructions Indication:BMI 26.0-26.9,adult Start:17-Oct-2016 Instruction Type:Provider Instructions for Treatment How to access health informa tion online Indication:Nonsmoker Start:22-May-2016 Instruction Type:Patient Education How to access health informa tion online - Detail Indication:Nonsmoker Start:22-May-2016 Instruction Type:Patient Education Patient Instructions Indication:Nonsmoker Start:22-May-2016 Instruction Type:Provider Instructions for Treatment How to access health informa tion online Indication:Flank pain Start:15-May-2016 Instruction Type:Patient Education How to access health informa tion online - Detail Indication:Flank pain Start:15-May-2016 Instruction Type:Patient Education Patient Instructions Indication:Flank pain Start:15-May-2016 Instruction Type:Provider Instructions for Treatment Patient Instructions Indication:Annual Medicare Phyiscal WITHOUT abnormal findings (Renamed from Encounter for general adult medical examination without abnormal findings) Start:29-Dec-2015 Instruction Type:Provider Instructions for Treatment How to access health informa tion online Indication:Hematuria Start:12-Dec-2015 Instruction Type:Patient Education How to access health informa tion online - Detail Indication:Hematuria Start:12-Dec-2015 Instruction Type:Patient Education Patient Instructions Indication:Hematuria Start:12-Dec-2015 Instruction Type:Provider Instructions for Treatment How to access health informa tion online Indication:Pyelonephritis Start:06-Dec-2015 Instruction Type:Patient Education How to access health informa tion online - Detail Indication:Pyelonephritis Start:06-Dec-2015 Instruction Type:Patient Education Patient Instructions Indication:Pyelonephritis Start:06-Dec-2015 Instruction Type:Provider Instructions for Treatment How to access health informa tion online Indication:UTI (urinary tract infection) Start:23-Nov-2015 Instruction Type:Patient Education How to access health informa tion online - Detail Indication:UTI (urinary tract infection) Start:23-Nov-2015 Instruction Type:Patient Education Patient Instructions Indication:UTI (urinary tract infection) Start:23-Nov-2015 Instruction Type:Provider Instructions for Treatment Name Dates Details How to access health informa tion online Indication:Body mass index 26.0-26.9, adult Start:12-Oct-2018 Instruction Type:Patient Education How to access health informa tion online - Detail Indication:Body mass index 26.0-26.9, adult Start:12-Oct-2018 Instruction Type:Patient Education Patient Instructions Indication:Right upper quadrant pain Start:12-Oct-2018 Instruction Type:Provider Instructions for Treatment How to access health informa tion online Indication:Hematuria Start:06-Nov-2016 Instruction Type:Patient Education How to access health informa tion online - Detail Indication:Hematuria Start:06-Nov-2016 Instruction Type:Patient Education Patient Instructions Indication:Hematuria Start:06-Nov-2016 Instruction Type:Provider Instructions for Treatment How to access health informa tion online - Detail Indication:BMI 26.0-26.9,adult Start:17-Oct-2016 Instruction Type:Patient Education Patient Instructions Indication:BMI 26.0-26.9,adult Start:17-Oct-2016 Instruction Type:Provider Instructions for Treatment How to access health informa tion online Indication:Nonsmoker Start:22-May-2016 Instruction Type:Patient Education How to access health informa tion online - Detail Indication:Nonsmoker Start:22-May-2016 Instruction Type:Patient Education Patient Instructions Indication:Nonsmoker Start:22-May-2016 Instruction Type:Provider Instructions for Treatment How to access health informa tion online Indication:Flank pain Start:15-May-2016 Instruction Type:Patient Education How to access health informa tion online - Detail Indication:Flank pain Start:15-May-2016 Instruction Type:Patient Education Patient Instructions Indication:Flank pain Start:15-May-2016 Instruction Type:Provider Instructions for Treatment Patient Instructions Indication:Annual Medicare Phyiscal WITHOUT abnormal findings (Renamed from Encounter for general adult medical examination without abnormal findings) Start:29-Dec-2015 Instruction Type:Provider Instructions for Treatment How to access health informa tion online Indication:Hematuria Start:12-Dec-2015 Instruction Type:Patient Education How to access health informa tion online - Detail Indication:Hematuria Start:12-Dec-2015 Instruction Type:Patient Education Patient Instructions Indication:Hematuria Start:12-Dec-2015 Instruction Type:Provider Instructions for Treatment How to access health informa tion online Indication:Pyelonephritis Start:06-Dec-2015 Instruction Type:Patient Education How to access health informa tion online - Detail Indication:Pyelonephritis Start:06-Dec-2015 Instruction Type:Patient Education Patient Instructions Indication:Pyelonephritis Start:06-Dec-2015 Instruction Type:Provider Instructions for Treatment How to access health informa tion online Indication:UTI (urinary tract infection) Start:23-Nov-2015 Instruction Type:Patient Education How to access health informa tion online - Detail Indication:UTI (urinary tract infection) Start:23-Nov-2015 Instruction Type:Patient Education Patient Instructions Indication:UTI (urinary tract infection) Start:23-Nov-2015 Instruction Type:Provider Instructions for Treatment Name Dates Details How to access health informa tion online Indication:Body mass index 26.0-26.9, adult Start:12-Oct-2018 Instruction Type:Patient Education How to access health informa tion online - Detail Indication:Body mass index 26.0-26.9, adult Start:12-Oct-2018 Instruction Type:Patient Education Patient Instructions Indication:Right upper quadrant pain Start:12-Oct-2018 Instruction Type:Provider Instructions for Treatment How to access health informa tion online Indication:Hematuria Start:06-Nov-2016 Instruction Type:Patient Education How to access health informa tion online - Detail Indication:Hematuria Start:06-Nov-2016 Instruction Type:Patient Education Patient Instructions Indication:Hematuria Start:06-Nov-2016 Instruction Type:Provider Instructions for Treatment How to access health informa tion online - Detail Indication:BMI 26.0-26.9,adult Start:17-Oct-2016 Instruction Type:Patient Education Patient Instructions Indication:BMI 26.0-26.9,adult Start:17-Oct-2016 Instruction Type:Provider Instructions for Treatment How to access health informa tion online Indication:Nonsmoker Start:22-May-2016 Instruction Type:Patient Education How to access health informa tion online - Detail Indication:Nonsmoker Start:22-May-2016 Instruction Type:Patient Education Patient Instructions Indication:Nonsmoker Start:22-May-2016 Instruction Type:Provider Instructions for Treatment How to access health informa tion online Indication:Flank pain Start:15-May-2016 Instruction Type:Patient Education How to access health informa tion online - Detail Indication:Flank pain Start:15-May-2016 Instruction Type:Patient Education Patient Instructions Indication:Flank pain Start:15-May-2016 Instruction Type:Provider Instructions for Treatment Patient Instructions Indication:Annual Medicare Phyiscal WITHOUT abnormal findings (Renamed from Encounter for general adult medical examination without abnormal findings) Start:29-Dec-2015 Instruction Type:Provider Instructions for Treatment How to access health informa tion online Indication:Hematuria Start:12-Dec-2015 Instruction Type:Patient Education How to access health informa tion online - Detail Indication:Hematuria Start:12-Dec-2015 Instruction Type:Patient Education Patient Instructions Indication:Hematuria Start:12-Dec-2015 Instruction Type:Provider Instructions for Treatment How to access health informa tion online Indication:Pyelonephritis Start:06-Dec-2015 Instruction Type:Patient Education How to access health informa tion online - Detail Indication:Pyelonephritis Start:06-Dec-2015 Instruction Type:Patient Education Patient Instructions Indication:Pyelonephritis Start:06-Dec-2015 Instruction Type:Provider Instructions for Treatment How to access health informa tion online Indication:UTI (urinary tract infection) Start:23-Nov-2015 Instruction Type:Patient Education How to access health informa tion online - Detail Indication:UTI (urinary tract infection) Start:23-Nov-2015 Instruction Type:Patient Education Patient Instructions Indication:UTI (urinary tract infection) Start:23-Nov-2015 Instruction Type:Provider Instructions for Treatment Name Dates Details How to access health informa tion online Indication:BMI 25.0-25.9,adult Start:08-Apr-2019 Instruction Type:Patient Education How to access health informa tion online - Detail Indication:BMI 25.0-25.9,adult Start:08-Apr-2019 Instruction Type:Patient Education Patient Instructions Indication:BMI 25.0-25.9,adult Start:08-Apr-2019 Instruction Type:Provider Instructions for Treatment How to access health informa tion online Indication:Body mass index 26.0-26.9, adult Start:12-Oct-2018 Instruction Type:Patient Education How to access health informa tion online - Detail Indication:Body mass index 26.0-26.9, adult Start:12-Oct-2018 Instruction Type:Patient Education Patient Instructions Indication:Right upper quadrant pain Start:12-Oct-2018 Instruction Type:Provider Instructions for Treatment How to access health informa tion online Indication:Hematuria Start:06-Nov-2016 Instruction Type:Patient Education How to access health informa tion online - Detail Indication:Hematuria Start:06-Nov-2016 Instruction Type:Patient Education Patient Instructions Indication:Hematuria Start:06-Nov-2016 Instruction Type:Provider Instructions for Treatment How to access health informa tion online - Detail Indication:BMI 26.0-26.9,adult Start:17-Oct-2016 Instruction Type:Patient Education Patient Instructions Indication:BMI 26.0-26.9,adult Start:17-Oct-2016 Instruction Type:Provider Instructions for Treatment How to access health informa tion online Indication:Nonsmoker Start:22-May-2016 Instruction Type:Patient Education How to access health informa tion online - Detail Indication:Nonsmoker Start:22-May-2016 Instruction Type:Patient Education Patient Instructions Indication:Nonsmoker Start:22-May-2016 Instruction Type:Provider Instructions for Treatment How to access health informa tion online Indication:Flank pain Start:15-May-2016 Instruction Type:Patient Education How to access health informa tion online - Detail Indication:Flank pain Start:15-May-2016 Instruction Type:Patient Education Patient Instructions Indication:Flank pain Start:15-May-2016 Instruction Type:Provider Instructions for Treatment Patient Instructions Indication:Annual Medicare Phyiscal WITHOUT abnormal findings (Renamed from Encounter for general adult medical examination without abnormal findings) Start:29-Dec-2015 Instruction Type:Provider Instructions for Treatment How to access health informa tion online Indication:Hematuria Start:12-Dec-2015 Instruction Type:Patient Education How to access health informa tion online - Detail Indication:Hematuria Start:12-Dec-2015 Instruction Type:Patient Education Patient Instructions Indication:Hematuria Start:12-Dec-2015 Instruction Type:Provider Instructions for Treatment How to access health informa tion online Indication:Pyelonephritis Start:06-Dec-2015 Instruction Type:Patient Education How to access health informa tion online - Detail Indication:Pyelonephritis Start:06-Dec-2015 Instruction Type:Patient Education Patient Instructions Indication:Pyelonephritis Start:06-Dec-2015 Instruction Type:Provider Instructions for Treatment How to access health informa tion online Indication:UTI (urinary tract infection) Start:23-Nov-2015 Instruction Type:Patient Education How to access health informa tion online - Detail Indication:UTI (urinary tract infection) Start:23-Nov-2015 Instruction Type:Patient Education Patient Instructions Indication:UTI (urinary tract infection) Start:23-Nov-2015 Instruction Type:Provider Instructions for Treatment Name Dates Details How to access health informa tion online Indication:Nonsmoker Start:20-Jan-2020 Instruction Type:Patient Education How to access health informa tion online - Detail Indication:Nonsmoker Start:20-Jan-2020 Instruction Type:Patient Education Patient Instructions Indication:Nonsmoker Start:20-Jan-2020 Instruction Type:Provider Instructions for Treatment How to access health informa tion online Indication:BMI 25.0-25.9,adult Start:08-Apr-2019 Instruction Type:Patient Education How to access health informa tion online - Detail Indication:BMI 25.0-25.9,adult Start:08-Apr-2019 Instruction Type:Patient Education Patient Instructions Indication:BMI 25.0-25.9,adult Start:08-Apr-2019 Instruction Type:Provider Instructions for Treatment How to access health informa tion online Indication:Body mass index 26.0-26.9, adult Start:12-Oct-2018 Instruction Type:Patient Education How to access health informa tion online - Detail Indication:Body mass index 26.0-26.9, adult Start:12-Oct-2018 Instruction Type:Patient Education Patient Instructions Indication:Right upper quadrant pain Start:12-Oct-2018 Instruction Type:Provider Instructions for Treatment How to access health informa tion online Indication:Hematuria Start:06-Nov-2016 Instruction Type:Patient Education How to access health informa tion online - Detail Indication:Hematuria Start:06-Nov-2016 Instruction Type:Patient Education Patient Instructions Indication:Hematuria Start:06-Nov-2016 Instruction Type:Provider Instructions for Treatment How to access health informa tion online - Detail Indication:BMI 26.0-26.9,adult Start:17-Oct-2016 Instruction Type:Patient Education Patient Instructions Indication:BMI 26.0-26.9,adult Start:17-Oct-2016 Instruction Type:Provider Instructions for Treatment How to access health informa tion online Indication:Nonsmoker Start:22-May-2016 Instruction Type:Patient Education How to access health informa tion online - Detail Indication:Nonsmoker Start:22-May-2016 Instruction Type:Patient Education Patient Instructions Indication:Nonsmoker Start:22-May-2016 Instruction Type:Provider Instructions for Treatment How to access health informa tion online Indication:Flank pain Start:15-May-2016 Instruction Type:Patient Education How to access health informa tion online - Detail Indication:Flank pain Start:15-May-2016 Instruction Type:Patient Education Patient Instructions Indication:Flank pain Start:15-May-2016 Instruction Type:Provider Instructions for Treatment Patient Instructions Indication:Annual Medicare Phyiscal WITHOUT abnormal findings (Renamed from Encounter for general adult medical examination without abnormal findings) Start:29-Dec-2015 Instruction Type:Provider Instructions for Treatment How to access health informa tion online Indication:Hematuria Start:12-Dec-2015 Instruction Type:Patient Education How to access health informa tion online - Detail Indication:Hematuria Start:12-Dec-2015 Instruction Type:Patient Education Patient Instructions Indication:Hematuria Start:12-Dec-2015 Instruction Type:Provider Instructions for Treatment How to access health informa tion online Indication:Pyelonephritis Start:06-Dec-2015 Instruction Type:Patient Education How to access health informa tion online - Detail Indication:Pyelonephritis Start:06-Dec-2015 Instruction Type:Patient Education Patient Instructions Indication:Pyelonephritis Start:06-Dec-2015 Instruction Type:Provider Instructions for Treatment How to access health informa tion online Indication:UTI (urinary tract infection) Start:23-Nov-2015 Instruction Type:Patient Education How to access health informa tion online - Detail Indication:UTI (urinary tract infection) Start:23-Nov-2015 Instruction Type:Patient Education Patient Instructions Indication:UTI (urinary tract infection) Start:23-Nov-2015 Instruction Type:Provider Instructions for Treatment Name Dates Details How to access health informa tion online Indication:Nonsmoker Start:20-Jan-2020 Instruction Type:Patient Education How to access health informa tion online - Detail Indication:Nonsmoker Start:20-Jan-2020 Instruction Type:Patient Education Patient Instructions Indication:Nonsmoker Start:20-Jan-2020 Instruction Type:Provider Instructions for Treatment How to access health informa tion online Indication:BMI 25.0-25.9,adult Start:08-Apr-2019 Instruction Type:Patient Education How to access health informa tion online - Detail Indication:BMI 25.0-25.9,adult Start:08-Apr-2019 Instruction Type:Patient Education Patient Instructions Indication:BMI 25.0-25.9,adult Start:08-Apr-2019 Instruction Type:Provider Instructions for Treatment How to access health informa tion online Indication:Body mass index 26.0-26.9, adult Start:12-Oct-2018 Instruction Type:Patient Education How to access health informa tion online - Detail Indication:Body mass index 26.0-26.9, adult Start:12-Oct-2018 Instruction Type:Patient Education Patient Instructions Indication:Right upper quadrant pain Start:12-Oct-2018 Instruction Type:Provider Instructions for Treatment How to access health informa tion online Indication:Hematuria Start:06-Nov-2016 Instruction Type:Patient Education How to access health informa tion online - Detail Indication:Hematuria Start:06-Nov-2016 Instruction Type:Patient Education Patient Instructions Indication:Hematuria Start:06-Nov-2016 Instruction Type:Provider Instructions for Treatment How to access health informa tion online - Detail Indication:BMI 26.0-26.9,adult Start:17-Oct-2016 Instruction Type:Patient Education Patient Instructions Indication:BMI 26.0-26.9,adult Start:17-Oct-2016 Instruction Type:Provider Instructions for Treatment How to access health informa tion online Indication:Nonsmoker Start:22-May-2016 Instruction Type:Patient Education How to access health informa tion online - Detail Indication:Nonsmoker Start:22-May-2016 Instruction Type:Patient Education Patient Instructions Indication:Nonsmoker Start:22-May-2016 Instruction Type:Provider Instructions for Treatment How to access health informa tion online Indication:Flank pain Start:15-May-2016 Instruction Type:Patient Education How to access health informa tion online - Detail Indication:Flank pain Start:15-May-2016 Instruction Type:Patient Education Patient Instructions Indication:Flank pain Start:15-May-2016 Instruction Type:Provider Instructions for Treatment Patient Instructions Indication:Annual Medicare Phyiscal WITHOUT abnormal findings (Renamed from Encounter for general adult medical examination without abnormal findings) Start:29-Dec-2015 Instruction Type:Provider Instructions for Treatment How to access health informa tion online Indication:Hematuria Start:12-Dec-2015 Instruction Type:Patient Education How to access health informa tion online - Detail Indication:Hematuria Start:12-Dec-2015 Instruction Type:Patient Education Patient Instructions Indication:Hematuria Start:12-Dec-2015 Instruction Type:Provider Instructions for Treatment How to access health informa tion online Indication:Pyelonephritis Start:06-Dec-2015 Instruction Type:Patient Education How to access health informa tion online - Detail Indication:Pyelonephritis Start:06-Dec-2015 Instruction Type:Patient Education Patient Instructions Indication:Pyelonephritis Start:06-Dec-2015 Instruction Type:Provider Instructions for Treatment How to access health informa tion online Indication:UTI (urinary tract infection) Start:23-Nov-2015 Instruction Type:Patient Education How to access health informa tion online - Detail Indication:UTI (urinary tract infection) Start:23-Nov-2015 Instruction Type:Patient Education Patient Instructions Indication:UTI (urinary tract infection) Start:23-Nov-2015 Instruction Type:Provider Instructions for Treatment Name Dates Details How to access health informa tion online Indication:Nonsmoker Start:20-Jan-2020 Instruction Type:Patient Education How to access health informa tion online - Detail Indication:Nonsmoker Start:20-Jan-2020 Instruction Type:Patient Education Patient Instructions Indication:Nonsmoker Start:20-Jan-2020 Instruction Type:Provider Instructions for Treatment How to access health informa tion online Indication:BMI 25.0-25.9,adult Start:08-Apr-2019 Instruction Type:Patient Education How to access health informa tion online - Detail Indication:BMI 25.0-25.9,adult Start:08-Apr-2019 Instruction Type:Patient Education Patient Instructions Indication:BMI 25.0-25.9,adult Start:08-Apr-2019 Instruction Type:Provider Instructions for Treatment How to access health informa tion online Indication:Body mass index 26.0-26.9, adult Start:12-Oct-2018 Instruction Type:Patient Education How to access health informa tion online - Detail Indication:Body mass index 26.0-26.9, adult Start:12-Oct-2018 Instruction Type:Patient Education Patient Instructions Indication:Right upper quadrant pain Start:12-Oct-2018 Instruction Type:Provider Instructions for Treatment How to access health informa tion online Indication:Hematuria Start:06-Nov-2016 Instruction Type:Patient Education How to access health informa tion online - Detail Indication:Hematuria Start:06-Nov-2016 Instruction Type:Patient Education Patient Instructions Indication:Hematuria Start:06-Nov-2016 Instruction Type:Provider Instructions for Treatment How to access health informa tion online - Detail Indication:BMI 26.0-26.9,adult Start:17-Oct-2016 Instruction Type:Patient Education Patient Instructions Indication:BMI 26.0-26.9,adult Start:17-Oct-2016 Instruction Type:Provider Instructions for Treatment How to access health informa tion online Indication:Nonsmoker Start:22-May-2016 Instruction Type:Patient Education How to access health informa tion online - Detail Indication:Nonsmoker Start:22-May-2016 Instruction Type:Patient Education Patient Instructions Indication:Nonsmoker Start:22-May-2016 Instruction Type:Provider Instructions for Treatment How to access health informa tion online Indication:Flank pain Start:15-May-2016 Instruction Type:Patient Education How to access health informa tion online - Detail Indication:Flank pain Start:15-May-2016 Instruction Type:Patient Education Patient Instructions Indication:Flank pain Start:15-May-2016 Instruction Type:Provider Instructions for Treatment Patient Instructions Indication:Annual Medicare Phy[employer]cal WITHOUT abnormal findings (Renamed from Encounter for general adult medical examination without abnormal findings) Start:29-Dec-2015 Instruction Type:Provider Instructions for Treatment How to access health informa tion online Indication:Hematuria Start:12-Dec-2015 Instruction Type:Patient Education How to access health informa tion online - Detail Indication:Hematuria Start:12-Dec-2015 Instruction Type:Patient Education Patient Instructions Indication:Hematuria Start:12-Dec-2015 Instruction Type:Provider Instructions for Treatment How to access health informa tion online Indication:Pyelonephritis Start:06-Dec-2015 Instruction Type:Patient Education How to access health informa tion online - Detail Indication:Pyelonephritis Start:06-Dec-2015 Instruction Type:Patient Education Patient Instructions Indication:Pyelonephritis Start:06-Dec-2015 Instruction Type:Provider Instructions for Treatment How to access health informa tion online Indication:UTI (urinary tract infection) Start:23-Nov-2015 Instruction Type:Patient Education How to access health informa tion online - Detail Indication:UTI (urinary tract infection) Start:23-Nov-2015 Instruction Type:Patient Education Patient Instructions Indication:UTI (urinary tract infection) Start:23-Nov-2015 Instruction Type:Provider Instructions for Treatment Name Dates Details How to access health informa tion online Indication:BMI 25.0-25.9,adult Start:10-Feb-2020 Instruction Type:Patient Education How to access health informa tion online - Detail Indication:BMI 25.0-25.9,adult Start:10-Feb-2020 Instruction Type:Patient Education Patient Instructions Indication:BMI 25.0-25.9,adult Start:10-Feb-2020 Instruction Type:Provider Instructions for Treatment How to access health informa tion online Indication:Nonsmoker Start:20-Jan-2020 Instruction Type:Patient Education How to access health informa tion online - Detail Indication:Nonsmoker Start:20-Jan-2020 Instruction Type:Patient Education Patient Instructions Indication:Nonsmoker Start:20-Jan-2020 Instruction Type:Provider Instructions for Treatment How to access health informa tion online Indication:BMI 25.0-25.9,adult Start:08-Apr-2019 Instruction Type:Patient Education How to access health informa tion online - Detail Indication:BMI 25.0-25.9,adult Start:08-Apr-2019 Instruction Type:Patient Education Patient Instructions Indication:BMI 25.0-25.9,adult Start:08-Apr-2019 Instruction Type:Provider Instructions for Treatment How to access health informa tion online Indication:Body mass index 26.0-26.9, adult Start:12-Oct-2018 Instruction Type:Patient Education How to access health informa tion online - Detail Indication:Body mass index 26.0-26.9, adult Start:12-Oct-2018 Instruction Type:Patient Education Patient Instructions Indication:Right upper quadrant pain Start:12-Oct-2018 Instruction Type:Provider Instructions for Treatment How to access health informa tion online Indication:Hematuria Start:06-Nov-2016 Instruction Type:Patient Education How to access health informa tion online - Detail Indication:Hematuria Start:06-Nov-2016 Instruction Type:Patient Education Patient Instructions Indication:Hematuria Start:06-Nov-2016 Instruction Type:Provider Instructions for Treatment How to access health informa tion online - Detail Indication:BMI 26.0-26.9,adult Start:17-Oct-2016 Instruction Type:Patient Education Patient Instructions Indication:BMI 26.0-26.9,adult Start:17-Oct-2016 Instruction Type:Provider Instructions for Treatment How to access health informa tion online Indication:Nonsmoker Start:22-May-2016 Instruction Type:Patient Education How to access health informa tion online - Detail Indication:Nonsmoker Start:22-May-2016 Instruction Type:Patient Education Patient Instructions Indication:Nonsmoker Start:22-May-2016 Instruction Type:Provider Instructions for Treatment How to access health informa tion online Indication:Flank pain Start:15-May-2016 Instruction Type:Patient Education How to access health informa tion online - Detail Indication:Flank pain Start:15-May-2016 Instruction Type:Patient Education Patient Instructions Indication:Flank pain Start:15-May-2016 Instruction Type:Provider Instructions for Treatment Patient Instructions Indication:Annual Medicare Phyiscal WITHOUT abnormal findings (Renamed from Encounter for general adult medical examination without abnormal findings) Start:29-Dec-2015 Instruction Type:Provider Instructions for Treatment How to access health informa tion online Indication:Hematuria Start:12-Dec-2015 Instruction Type:Patient Education How to access health informa tion online - Detail Indication:Hematuria Start:12-Dec-2015 Instruction Type:Patient Education Patient Instructions Indication:Hematuria Start:12-Dec-2015 Instruction Type:Provider Instructions for Treatment How to access health informa tion online Indication:Pyelonephritis Start:06-Dec-2015 Instruction Type:Patient Education How to access health informa tion online - Detail Indication:Pyelonephritis Start:06-Dec-2015 Instruction Type:Patient Education Patient Instructions Indication:Pyelonephritis Start:06-Dec-2015 Instruction Type:Provider Instructions for Treatment How to access health informa tion online Indication:UTI (urinary tract infection) Start:23-Nov-2015 Instruction Type:Patient Education How to access health informa tion online - Detail Indication:UTI (urinary tract infection) Start:23-Nov-2015 Instruction Type:Patient Education Patient Instructions Indication:UTI (urinary tract infection) Start:23-Nov-2015 Instruction Type:Provider Instructions for Treatment Name Dates Details How to access health informa tion online Indication:BMI 25.0-25.9,adult Start:10-Feb-2020 Instruction Type:Patient Education How to access health informa tion online - Detail Indication:BMI 25.0-25.9,adult Start:10-Feb-2020 Instruction Type:Patient Education Patient Instructions Indication:BMI 25.0-25.9,adult Start:10-Feb-2020 Instruction Type:Provider Instructions for Treatment How to access health informa tion online Indication:Nonsmoker Start:20-Jan-2020 Instruction Type:Patient Education How to access health informa tion online - Detail Indication:Nonsmoker Start:20-Jan-2020 Instruction Type:Patient Education Patient Instructions Indication:Nonsmoker Start:20-Jan-2020 Instruction Type:Provider Instructions for Treatment How to access health informa tion online Indication:BMI 25.0-25.9,adult Start:08-Apr-2019 Instruction Type:Patient Education How to access health informa tion online - Detail Indication:BMI 25.0-25.9,adult Start:08-Apr-2019 Instruction Type:Patient Education Patient Instructions Indication:BMI 25.0-25.9,adult Start:08-Apr-2019 Instruction Type:Provider Instructions for Treatment How to access health informa tion online Indication:Body mass index 26.0-26.9, adult Start:12-Oct-2018 Instruction Type:Patient Education How to access health informa tion online - Detail Indication:Body mass index 26.0-26.9, adult Start:12-Oct-2018 Instruction Type:Patient Education Patient Instructions Indication:Right upper quadrant pain Start:12-Oct-2018 Instruction Type:Provider Instructions for Treatment How to access health informa tion online Indication:Hematuria Start:06-Nov-2016 Instruction Type:Patient Education How to access health informa tion online - Detail Indication:Hematuria Start:06-Nov-2016 Instruction Type:Patient Education Patient Instructions Indication:Hematuria Start:06-Nov-2016 Instruction Type:Provider Instructions for Treatment How to access health informa tion online - Detail Indication:BMI 26.0-26.9,adult Start:17-Oct-2016 Instruction Type:Patient Education Patient Instructions Indication:BMI 26.0-26.9,adult Start:17-Oct-2016 Instruction Type:Provider Instructions for Treatment How to access health informa tion online Indication:Nonsmoker Start:22-May-2016 Instruction Type:Patient Education How to access health informa tion online - Detail Indication:Nonsmoker Start:22-May-2016 Instruction Type:Patient Education Patient Instructions Indication:Nonsmoker Start:22-May-2016 Instruction Type:Provider Instructions for Treatment How to access health informa tion online Indication:Flank pain Start:15-May-2016 Instruction Type:Patient Education How to access health informa tion online - Detail Indication:Flank pain Start:15-May-2016 Instruction Type:Patient Education Patient Instructions Indication:Flank pain Start:15-May-2016 Instruction Type:Provider Instructions for Treatment Patient Instructions Indication:Annual Medicare Phyiscal WITHOUT abnormal findings (Renamed from Encounter for general adult medical examination without abnormal findings) Start:29-Dec-2015 Instruction Type:Provider Instructions for Treatment How to access health informa tion online Indication:Hematuria Start:12-Dec-2015 Instruction Type:Patient Education How to access health informa tion online - Detail Indication:Hematuria Start:12-Dec-2015 Instruction Type:Patient Education Patient Instructions Indication:Hematuria Start:12-Dec-2015 Instruction Type:Provider Instructions for Treatment How to access health informa tion online Indication:Pyelonephritis Start:06-Dec-2015 Instruction Type:Patient Education How to access health informa tion online - Detail Indication:Pyelonephritis Start:06-Dec-2015 Instruction Type:Patient Education Patient Instructions Indication:Pyelonephritis Start:06-Dec-2015 Instruction Type:Provider Instructions for Treatment How to access health informa tion online Indication:UTI (urinary tract infection) Start:23-Nov-2015 Instruction Type:Patient Education How to access health informa tion online - Detail Indication:UTI (urinary tract infection) Start:23-Nov-2015 Instruction Type:Patient Education Patient Instructions Indication:UTI (urinary tract infection) Start:23-Nov-2015 Instruction Type:Provider Instructions for Treatment Name Dates Details How to access health informa tion online Indication:Body mass index 26.0-26.9, adult Start:12-Oct-2018 Instruction Type:Patient Education How to access health informa tion online - Detail Indication:Body mass index 26.0-26.9, adult Start:12-Oct-2018 Instruction Type:Patient Education Patient Instructions Indication:Right upper quadrant pain Start:12-Oct-2018 Instruction Type:Provider Instructions for Treatment How to access health informa tion online Indication:Hematuria Start:06-Nov-2016 Instruction Type:Patient Education How to access health informa tion online - Detail Indication:Hematuria Start:06-Nov-2016 Instruction Type:Patient Education Patient Instructions Indication:Hematuria Start:06-Nov-2016 Instruction Type:Provider Instructions for Treatment How to access health informa tion online - Detail Indication:BMI 26.0-26.9,adult Start:17-Oct-2016 Instruction Type:Patient Education Patient Instructions Indication:BMI 26.0-26.9,adult Start:17-Oct-2016 Instruction Type:Provider Instructions for Treatment How to access health informa tion online Indication:Nonsmoker Start:22-May-2016 Instruction Type:Patient Education How to access health informa tion online - Detail Indication:Nonsmoker Start:22-May-2016 Instruction Type:Patient Education Patient Instructions Indication:Nonsmoker Start:22-May-2016 Instruction Type:Provider Instructions for Treatment How to access health informa tion online Indication:Flank pain Start:15-May-2016 Instruction Type:Patient Education How to access health informa tion online - Detail Indication:Flank pain Start:15-May-2016 Instruction Type:Patient Education Patient Instructions Indication:Flank pain Start:15-May-2016 Instruction Type:Provider Instructions for Treatment Patient Instructions Indication:Annual Medicare Phyiscal WITHOUT abnormal findings (Renamed from Encounter for general adult medical examination without abnormal findings) Start:29-Dec-2015 Instruction Type:Provider Instructions for Treatment How to access health informa tion online Indication:Hematuria Start:12-Dec-2015 Instruction Type:Patient Education How to access health informa tion online - Detail Indication:Hematuria Start:12-Dec-2015 Instruction Type:Patient Education Patient Instructions Indication:Hematuria Start:12-Dec-2015 Instruction Type:Provider Instructions for Treatment How to access health informa tion online Indication:Pyelonephritis Start:06-Dec-2015 Instruction Type:Patient Education How to access health informa tion online - Detail Indication:Pyelonephritis Start:06-Dec-2015 Instruction Type:Patient Education Patient Instructions Indication:Pyelonephritis Start:06-Dec-2015 Instruction Type:Provider Instructions for Treatment How to access health informa tion online Indication:UTI (urinary tract infection) Start:23-Nov-2015 Instruction Type:Patient Education How to access health informa tion online - Detail Indication:UTI (urinary tract infection) Start:23-Nov-2015 Instruction Type:Patient Education Patient Instructions Indication:UTI (urinary tract infection) Start:23-Nov-2015 Instruction Type:Provider Instructions for Treatment Medications Administered Section Active Administered Medications - up to 3 most recent administrations Medication Order MAR Action Action Date Dose Rate Site PHENYLephrine 2.5 % 1 Drop (AK-DILATE, FERNANDO-SYNEPHRINE) 1 Drop, BOTH EYES, DIRECTED, Starting on Fri07/13/21 at 0830, Until Fri07/13/21 at 2028, Administer for dilation PROTECT FROM LIGHT Given 07/13/2021 8:30 AM EDT 1 Drop tropicamide 1 % 1 Drop (MYDRIACYL) 1 Drop, BOTH EYES, DIRECTED, Starting on Fri07/13/21 at 0830, Until Fri07/13/21 at 2028, Administer for dilation Given 07/13/2021 8:30 AM EDT 1 Drop Chief Complaint and Reason for Visit Chief Complaint UTI Chief Complaint UTI Unspecified hydronephrosis Chief Complaint UTI Unspecified hydronephrosis EVAL RENAL MASS/NEED ORDER FOR REPEAT LABS Reason for Referral Specialty Diagnoses / Procedures Referred By Raphael t Referred To Contact General Surgery Diagnoses SBO (small bowel obstruction) ([facility]) Procedures CONSULT TO GENERAL SURGERY Federico Jade MD [address] [place] [address] Kasia Petit MD [address] [place] [address] Referral ID Status Reason Start Date Expiration Date Visits Requested Visits Authorized [id number] Ref Not Required PCP Requested Referral 07/08/2023 07/07/2024 1 1 Additional Source Comments INFORMATION SOURCE (unrecogn ized section and content) DATE CREATED AUTHOR 09/29/2017 [facility] DATE CREATED AUTHOR AUTHOR'S ORGANIZ ATION 03/18/2019 [facility] DATE CREATED AUTHOR AUTHOR'S ORGANIZ ATION 05/27/2019 [facility] DATE CREATED AUTHOR AUTHOR'S ORGANIZ ATION 11/22/2020 [facility] DATE CREATED AUTHOR AUTHOR'S ORGANIZ ATION 05/01/2022 [facility] DATE CREATED AUTHOR AUTHOR'S ORGANIZ ATION 06/19/2023 [facility] DATE CREATED AUTHOR AUTHOR'S ORGANIZ ATION 06/22/2023 [facility] DATE CREATED AUTHOR AUTHOR'S ORGANIZ ATION 05/17/2024 [facility] DATE CREATED AUTHOR AUTHOR'S ORGANIZ ATION 10/29/2024 [facility] DATE CREATED AUTHOR AUTHOR'S ORGANIZ ATION 02/17/2025 [facility] Source Comments (unrecognize d section and content) In the event this informatio n is protected by the Federal Confidentiality of Alcohol and Drug Abuse Patient Records regulations: The Federal rules restrict any use of the information to criminally investigate or prosecute any alcohol or drug abuse patient.[facility] the event this information is protected by the Federal Confidentiality of Alcohol and Drug Abuse Patient Records regulations: The Federal rules restrict any use of the information to criminally investigate or prosecute any alcohol or drug abuse patient.[facility] the event this information is protected by the Federal Confidentiality of Alcohol and Drug Abuse Patient Records regulations: The Federal rules restrict any use of the information to criminally investigate or prosecute any alcohol or drug abuse patient.[facility] the event this information is protected by the Federal Confidentiality of Alcohol and Drug Abuse Patient Records regulations: The Federal rules restrict any use of the information to criminally investigate or prosecute any alcohol or drug abuse patient.[facility] Reason for Visit (unrecogniz ed section and content) Reason Comments Flashes Both Eyes for 1 week Headaches for 1 week Reason Comments Blood Shot Eye Left Eye No pain Reason Comments Hospital Follow Up SBO Reason Comments New Patient Numbness Specialty Diagnoses / Procedures Referred By Contac t Referred To Contact Neurology Diagnoses Polyneuropathy, unspecified Procedures MI OFFICE/OUTPATIENT NEW MODERATE MDM 45 MINUTES Andria Steve DO [address] [place] [address] Phone: tel: fax: Tadeo Napoles MD [address] [facility] [address] [place] [address] Phone: tel: fax: Referral ID Status Reason Start Date Expiration Date V isits Requested Visits Authorized [id number] Pending Review 11/14/2023 11/13/2024 1 1 Reason Comments Med Refill Care Teams (unrecognized sec tion and content) Slip Feeder Relationship Specialty Start Date End Date Andria Steve DO PCP - General Internal Medicine 05/27/16 Slip Feeder Relationship Specialty Start Date End Date Andria Steve DO PCP - General Internal Medicine 05/27/16 Team Status: Active Member Role Status Dates Dr. Andria Steve DO Family Provider Active Dr. Andria Steve DO Primary Care Provider Active Team Status: Inactive Member Role Status Dates Dr. Andria Steve DO Primary Care Provider Active ROSITA Ventura Attending Provider, Referring Pr michael Active Team Status: Inactive Member Role Status Dates Dr. Andria Steve DO Primary Care Provider Active Dr. Evonne Lara MD Attending Provider, Referring P it[place] Active Team Status: Active Member Role Status Dates Dr. Andria Steve DO Primary Care Provider Active Dr. Evonne Lara MD Attending Provider, Referring Leigh Ann echavarria Active Slip Feeder Relationship Specialty Start Date End Date Andria Steve DO PCP - General Internal Medicine 05/27/16 Slip Feeder Relationship Specialty Start Date End Date Andria Steve DO [address] [place] [address] PCP - General 03/11/17 Slip Feeder Relationship Specialty Start Date End Date Andria Steve DO [address] [place] [address] PCP - General 03/11/17 Slip Feeder Relationship Specialty Start Date End Date Andria Steve DO PCP - General Internal Medicine 05/27/16 Goals (unrecognized section and content) Goals may be documented in a n alternate sectionGoals may be documented in an alternate sectionGoals may be documented in an alternate sectionGoals may be documented in an alternate sectionGoals may be documented in an alternate section FOR RECORDS PERTAINING TO PATIENTS WHO ARE OR HAVE BEEN ENROLLED IN A CHEMICAL DEPENDENCY/SUBSTANCEABUSE PROGRAM, SOME INFORMATION MAY BE OMITTED. This clinical summary was aggregated from multiple sources. Caution should be exercised in using it in the provision of clinical care. This summary normalizes information from multiple sources, and as a consequence, information in this document may materially change the coding, format and clinical context of patient data. In addition, data may be omitted in some cases. CLINICAL DECISIONS SHOULD BE BASED ON THE PRIMARY CLINICAL RECORDS. [employer] [facility]. provides no warranty or guarantee of the accuracy or completeness of information in this document.
[2025-03-31 18:16] LABS: Hematocrit 39.8 % (37-47); Hemoglobin 13.4 g/dL (12.0-15.0); Immature Granulocytes Count 0.020 X10^3/uL (0.0-0.0); Mean Corp Hgb Conc 33.7 g/dL (32-36); Mean Corpuscular Volume 90.9 fL (81-99); Mean Platelet Vol. 9.3 fl (6.2-12.0); NRBC Flagged by Analyzer 0 % (0-5); Platelet Count 215 K/mm3 (150-450); RBC Distribution Width CV 13.3 % (11.6-14.6); RBC Distribution Width SD 44.6 fl (35.1-43.9); Red Blood Count 4.38 M/mm3 (4.2-5.4); White Blood Count 9.6 K/mm3 (4.4-11.0)
[2025-03-31] MEDS: 0.9% Normal Saline (1000mL) 1,000 ML 999 ML IV (18:23)
[2025-03-31] MEDS: fentaNYL 100 MCG/2 ML Ampul 50 MCG IV ×2 (18:23→20:26)
--- NOTE | 2025-03-31 18:28 | EX.ED.DYSGE1 ---
HPI History of Present Illness Chief Complaint: General Illness Informant: patient Narrative Narrative: Patient is an 84-year-old female with history of CKD stage III, hypertension, polyneuropathy, small bowel obstruction, prior cholecystectomy and open sigmoidectomy presenting with abdominal discomfort nausea and vomiting as well as URI symptoms. States she was vomiting all night last night. She now is having dry heaves. States that she is having cramping intermittent abdominal pain. States there was a small amount of blood in her vomit with the dry heaves. States that she has chronic problems with her bowel movements that are often small and sparse. States she did have a bowel movement this morning. She did take ibuprofen this point as well because she felt feverish. Had some URI symptoms with congestion and pressure in her ears. States that her grandson had a mild cough yesterday. Does report some chronic stress incontinence made worse with vomiting but no other acute urinary symptoms. Came in for further evaluation. No other complaints or concerns reported at this time. Denies any difficulty breathing or chest pain. [facility] Medical History (Updated 03/31/25 @ 21:[address] Eran Olson MD) Encounter for general adult medical examination with abnormal findings Polyneuropathy Essential (primary) hypertension CKD (chronic kidney disease) stage 3, GFR 30-59 ml/min Abnormal glucose tolerance test (GTT) Bowel obstruction Chronic GERD Fistula, bladder Carpal tunnel syndrome Paresthesia Anxiety Weight loss Non-smoker Structural abnormality of bladder IBS (irritable bowel syndrome) Elevated blood pressure reading Mass of kidney of unknown nature Stress reaction Sphincter of Oddi dysfunction Hematuria RLS (restless legs syndrome) Back pain Biliary colic Constipation Hx of small bowel obstruction Cholesterolosis Acid reflux Sleep apnea Arthritis History of back problems Home Medications ?Medication ?Instructions ?Recorded ?Last Taken ?Type echinacea 400 mg capsule 400 mg PO DAILY PRN immunity 10/15/18 10/18/18 History multivitamin with minerals 1 ea PO DAILY supp 10/19/18 10/18/18 History ondansetron HCl 4 mg tablet 4 mg PO DAILY PRN nausea and 08/04/23 08/03/24 History vomiting famotidine 20 mg tablet (Acid 20 mg PO BID PRN stomach upset 08/03/24 Unknown History Controller) fluticasone propionate 50 1 - 2 spray intranasal DAILY PRN 08/03/24 Unknown History mcg/actuation nasal allergy symptoms spray,suspension (Allergy Relief (fluticasone)) melatonin 5 mg tablet 5 - 10 mg PO DAILY PRN sleep 08/03/24 Unknown History lorazepam 0.5 mg tablet 0.5 mg PO DAILY PRN anxiety #30 02/16/25 Unknown Rx tabs dicyclomine 20 mg tablet 20 mg PO BID abd 03/31/25 Unknown History Allergy/AdvReac Type Severity Reaction Status Date / Time Iodinated Contrast Media Allergy Intermediate Hives Verified 03/31/25 17:44 (contrast dye - iodinated) iohexol Allergy Hives Verified 03/31/25 17:44 codeine AdvReac Nausea/Vom/ Verified 03/31/25 17:44 Diarrhea Family History Father Cancer prostate Brother Cancer brain Seizures Mother Colon cancer Surgical History (Updated 03/31/25 @ 20:[address] Isabel Cavazos, DO) History of bowel resection History of colonoscopy (~2018) Hx laparoscopic cholecystectomy History of open sigmoidectomy History of colonoscopy history excision colon polyps History of arthroscopy of left knee Social History household members: none Smoking Status: Never smoker alcohol intake: never substance use type: does not use seatbelt use: always do you feel safe at home: Yes ROS ROS ED Constitutional Constitutional ED: Reports chills, fever(s) and subjective ENT ENT ED: Reports ear pain, rhinorrhea and other Details: Nasal congestion Cardiovascular Cardiovascular: Denies chest pain Respiratory/Chest Respiratory/Chest: Reports cough Gastrointestinal Gastrointestinal: Reports abdominal pain, constipation, nausea and vomiting; Denies diarrhea Genitourinary Genitourinary ED: Denies dysuria or hematuria Musculoskeletal Musculoskeletal: Denies arthralgias or myalgias Integumentary Denies rash Neurologic Neurologic: Reports weakness Hematologic/Lymphatic Hematologic/Lymphatic: Denies easy bleeding or easy bruising EXAM Physical Exam Const Vital Signs: 03/31/25 17:41 Temperature 98.6 F Temperature Source Oral Pulse Rate 88 Respiratory Rate 18 Blood Pressure 157/99 H Blood Pressure Mean 118 Pulse Ox 98 Oxygen Delivery Method Room Air Positive well nourished and well developed General Appearance ED: well developed and NAD; Negative for pallor HEENT Reports dry mucous membranes Mouth ED: Yes dry mucous membranes Mouth: dry mucous membranes Eyes PERRL Neck supple Chest Wall inspection of chest normal and palpation of chest normal Resp normal respiratory effort and clear to auscultation bilaterally Cardio regular rate and regular rhythm GI Inspection: Negative for abdominal distention Auscultation: hypoactive bowel sounds Palpation: soft; Negative for tender or guarding Extremity normal to inspection General Extremety ED: Negative for edema General Extremity: Negative for edema Neuro oriented x3 Sensorium / Orientation: alert Motor Exam: Negative for general weakness Psych mental status grossly normal Skin no rashes or lesions noted and no wounds General Skin Exam: Negative for jaundice or pallor MDM MDM MDM Narrative Medical decision making narrative: Patient is evaluated for nausea vomiting*this morning she also has a mild URI symptoms. Does have a history significant for small bowel obstructions. Differential includes gastroenteritis, small bowel obstruction, pancreatitis and choledocholithiasis. Viral swab is obtained. Patient given fentanyl and Zofran as well as IV fluids for symptom control initially. On repeat evaluation she is feeling much improved. Flu swab is negative. CBC and CMP as well as lipase largely unremarkable. CT abdomen pelvis does show persistent dilated loops of fluid-filled bowel measuring up to 4.4 cm concerning for small bowel obstruction. This was consistent with her CT on 08/03/2024 when at that time she also a small bowel obstruction was admitted. She also has persistent pneumobilia. Case is discussed with general surgery, Dr. Petit. She is agreeable with admission to the medicine service. NG tube is placed. Plan for small bowel follow-through in the morning. Patient's case discussed with hospitalist for admission. X-ray reviewed by myself does show appropriate positioning of the NG tube. Lab Data Attestation: I reviewed the patient's lab results. Labs: Laboratory Results - last 24 hr 03/31/25 03/31/25 03/31/25 18:10 18:47 19:29 WBC 9.6 RBC 4.38 Hgb 13.4 Hct 39.8 MCV 90.9 MCH 30.6 MCHC 33.7 RDW Std Deviation 44.6 H RDW Coeff of Shira 13.3 Plt Count 215 MPV 9.3 Immature Gran % (Auto) 0.200 Neut % (Auto) 85.5 H Lymph % (Auto) 9.1 L [place] % (Auto) 5.1 Eos % (Auto) 0.0 Baso % (Auto) 0.1 Absolute Neuts (auto) 8.2 H Absolute Lymphs (auto) 0.88 Nucleated RBC % 0 Sodium Cancelled 138 Potassium Cancelled 3.8 Chloride Cancelled 102 Carbon Dioxide Cancelled 23.1 Anion Gap Cancelled 13 BUN Cancelled 26 H Creatinine Cancelled 0.80 Estim Creat Clear Calc 45.02 L Est GFR (MDRD) Non-Af Cancelled 73 BUN/Creatinine Ratio Cancelled 32.3 H Glucose Cancelled 113 H Calcium Cancelled 9.0 Total Bilirubin Cancelled 0.84 AST Cancelled 34 H ALT Cancelled 14 Alkaline Phosphatase Cancelled 53 Total Protein Cancelled 6.8 Albumin Cancelled 4.1 Globulin Cancelled 2.8 Albumin/Globulin Ratio Cancelled 1.5 Lipase 38 Urine Color Yellow Urine Clarity Sl. Cloudy Urine pH 6.0 Ur Specific [place] 1.025 Urine Protein 100 H Urine Glucose (UA) Normal Urine Ketones 150 A* Urine Occult Blood 150 H Urine Nitrite Negative Urine Bilirubin 1 H Urine Urobilinogen 1 H Ur Leukocyte Esterase 100 H Urine RBC 25-50 SEEN Urine WBC 50-100 SEEN Ur Squamous Epith Cells 0-5 SEEN Urine Bacteria 0 SEEN Urine Mucus 1+ Radiography Diagnostic Testing: Clinical Impression(s) from Imaging Studies Abdomen/Pelvis CT 03/31/25 18:30 IMPRESSION: 1. Lack of contrast limits evaluation. When compared to CT abdomen/pelvis 08/03/2024, persistent dilated loops of fluid-filled small bowel measuring up to 4.4 cm and concerning for small bowel obstruction. 2. Persistent pneumobilia is nonspecific but may be iatrogenic in origin. 3. Bilateral hypodense cortical renal lesions which may reflect proteinaceous or hemorrhagic cysts. If not already evaluated, an MRI of the kidneys may be obtained for further evaluation. Reading Location: [facility] X-Ray 03/31/25 20:30 IMPRESSION: A nasogastric tube extends below the diaphragm with tip in the left upper quadrant at the region of the stomach. No pneumothorax. Reading Location: [facility] Management Discussion w/another healthcare provider: Hospitalist and [employer] Discharge Plan Dx/Rx/DC Orders Clinical Impression: SBO (small bowel obstruction), History of open sigmoidectomy, Hx laparoscopic cholecystectomy Disposition Disposition: Acute Care Hospital [facility] Discharge Date/Time: 03/31/25 20:49
--- NOTE | 2025-03-31 18:30 | CT_ITS ---
PROCEDURE: ABDOMEN/PELVIS WITHOUT CONT 03/31/2025 REASON FOR EXAM: NAUSEA AND VOMITING, HX OF SBO TECHNIQUE: Procedure Code: [id number] Modality: CT Procedure: ABDOMEN/PELVIS WITHOUT CONT Noncontrast technique limits evaluation of the abdominal and pelvic viscera. Coronal and Sagittal reconstruction series were provided. One or more dose reduction techniques were used (e.g., Automated exposure control, adjustment of the mA and/or kV according to patient size, use of iterative reconstruction technique). RADIATION DOSE SUMMARY: DLP: 271.80 mGycm COMPARISON: CT abdomen/pelvis 08/03/2024 FINDINGS: Lung bases: No focal lung consolidation. Pulmonary emphysema. Mild dependent atelectasis. Liver: Normal in size. Normal morphology. Gallbladder: Surgically absent. Persistent pneumobilia. Spleen: Unremarkable. Pancreas: Unremarkable. Adrenals: Unremarkable. Kidneys: Normal in size. No hydroureteronephrosis or nephroureterolithiasis. Multiple bilateral hyperdense cortical renal lesions likely reflect proteinaceous or hemorrhagic cysts. Left upper renal pole hypoattenuating lesion likely reflecting a simple cyst. Urinary bladder: Nondistended limiting evaluation. Bowel: The stomach is unremarkable. Persistent dilated loops of fluid-filled small bowel measuring up to 4.4 cm. The large bowel is normal in caliber. A few scattered colonic diverticuli. Appearance of anastomotic sutures in the rectosigmoid junction. Appendix: Not visualized. Lymph nodes: No lymphadenopathy. Vasculature: No abdominal aortic aneurysm. Atherosclerotic calcification of the abdominal aorta. Peritoneum / Retroperitoneum: No ascites. No pneumoperitoneum. Reproductive Organs: Unremarkable. Bones: No aggressive osseous lesions. Degenerative changes of the lumbar spine. CT/Abdomen/Pelvis without Cont IMPRESSION: 1. Lack of contrast limits evaluation. When compared to CT abdomen/pelvis 07/07, persistent dilated loops of fluid-filled small bowel measuring up to 4.4 cm and concerning for small bowel obstruction. 2. Persistent pneumobilia is nonspecific but may be iatrogenic in origin. 3. Bilateral hypodense cortical renal lesions which may reflect proteinaceous o r hemorrhagic cysts. If not already evaluated, an MRI of the kidneys may be obtained for further evaluation. Reading Location: [id number]
[2025-03-31 18:34] LABS: Lipase 38 U/L (13-75)
[2025-03-31 19:19] LABS: AST(SGOT) 34 U/L (<=31); Alanine Aminotransfer ALT/SGPT 14 U/L (<=34); Albumin, Serum 4.1 g/dL (3.4-4.8); Alkaline Phosphatase 53 U/L (35-104); Anion Gap 13 (7-18); BUN 26 mg/dL (4-19); BUN/Creat Ratio 32.3 RATIO (10-20); Calcium,Total 9.0 mg/dL (7.6-11.0); Carbon Dioxide 23.1 mmol/L (20.0-29.0); Chloride 102 mmol/L (96-106); Estimated Creatinine Clearance 45.02 ml/min (50-250); Globulin 2.8 g/dL (2.2-4.2); Glucose 113 mg/dL (70-99); Potassium 3.8 mmol/L (3.5-5.1)
[2025-03-31 19:51] LABS: Color, Urine Yellow (Yellow); Glucose, Dipstick Normal (Normal); Leukocyte Esterase-Dipstick 100 /ul (Negative); Nitrite-Dipstick Negative (Negative); Occult Blood-Urine 150 /ul (Negative); Protein-Dipstick 100 mg/dl (Negative); Specific Gravity, Urine 1.025 (1.002-1.030)
--- NOTE | 2025-03-31 20:01 | PCM.HP.STD ---
HPI - General General Date of Admission: 03/31/25 Date of Service: 03/31/25 HPI Narrative MARY GALLEGOS, is a 84 F with medical history significant for prior sigmoid volvulus s/p sigmoidectomy, adhesions and recurrent small bowel obstruction who presents with new onset severe cramping intermittent abdominal pain and distention accompanied by intractable vomiting that started one day prior to presentation. She noticed small amount of blood in her vomit later on along with dry heaving. In the ED, patient was afebrile and hemodynamically stable. CBC and chemistry without significant findings. CT abdomen showed dilated loops of fluid-filled small bowel measuring up to 4.4 cm concerning for small bowel obstruction, similar to prior CT in July when she was hospitalized for small bowel obstruction. Of note this is the patient's third hospitalization with small bowel obstruction, last episode was at the end of July this year 2024 which resolved on its own, she was seen by general surgery and her small bowel follow-through showed contrast in cecum indicating resolution of SBO. She was encouraged to use MiraLAX upon discharge but she states it is not helping. Patient does not have a bowel movement with every day on regular basis She had NG tube placed in the ED this time and all the output was nonbloody. She has required at least 2 doses of fentanyl 50 mcg each for pain relief. General surgery was contacted, recommended admission and small bowel follow-through and conservative management at this time. [facility] Medical History (Updated 03/31/25 @ 21:[address] Eran Olson MD) Encounter for general adult medical examination with abnormal findings Polyneuropathy Essential (primary) hypertension CKD (chronic kidney disease) stage 3, GFR 30-59 ml/min Abnormal glucose tolerance test (GTT) Bowel obstruction Chronic GERD Fistula, bladder Carpal tunnel syndrome Paresthesia Anxiety Weight loss Non-smoker Structural abnormality of bladder IBS (irritable bowel syndrome) Elevated blood pressure reading Mass of kidney of unknown nature Stress reaction Sphincter of Oddi dysfunction Hematuria RLS (restless legs syndrome) Back pain Biliary colic Constipation Hx of small bowel obstruction Cholesterolosis Acid reflux Sleep apnea Arthritis History of back problems Home Medications ?Medication ?Instructions ?Recorded ?Last Taken ?Type echinacea 400 mg capsule 400 mg PO DAILY PRN immunity 10/15/18 10/18/18 History multivitamin with minerals 1 ea PO DAILY supp 10/19/18 10/18/18 History ondansetron HCl 4 mg tablet 4 mg PO DAILY PRN nausea and 08/04/23 08/03/24 History vomiting famotidine 20 mg tablet (Acid 20 mg PO BID PRN stomach upset 08/03/24 Unknown History Controller) fluticasone propionate 50 1 - 2 spray intranasal DAILY PRN 08/03/24 Unknown History mcg/actuation nasal allergy symptoms spray,suspension (Allergy Relief (fluticasone)) melatonin 5 mg tablet 5 - 10 mg PO DAILY PRN sleep 08/03/24 Unknown History lorazepam 0.5 mg tablet 0.5 mg PO DAILY PRN anxiety #30 02/16/25 Unknown Rx tabs dicyclomine 20 mg tablet 20 mg PO BID abd 03/31/25 Unknown History Allergy/AdvReac Type Severity Reaction Status Date / Time Iodinated Contrast Media Allergy Intermediate Hives Verified 03/31/25 17:44 (contrast dye - iodinated) iohexol Allergy Hives Verified 03/31/25 17:44 codeine AdvReac Nausea/Vom/ Verified 03/31/25 17:44 Diarrhea Family History Father Cancer prostate Brother Cancer brain Seizures Mother Colon cancer Surgical History (Updated 03/31/25 @ 20:[address] Isabel Cavazos, ) History of bowel resection History of colonoscopy (~2018) Hx laparoscopic cholecystectomy History of open sigmoidectomy History of colonoscopy history excision colon polyps History of arthroscopy of left knee Social History household members: none Smoking Status: Never smoker alcohol intake: never substance use type: does not use seatbelt use: always do you feel safe at home: Yes ROS Constitutional Constitutional: Reports poor appetite; Denies fever(s) ENT HEENT: Reports none Cardiovascular Cardiovascular: Denies chest pain or dyspnea Respiratory/Chest Respiratory/Chest: Denies cough or wheezing Gastrointestinal Gastrointestinal: Reports abdominal pain, change in bowel habits, constipation, nausea and vomiting Genitourinary Genitourinary: Denies change in urinary stream or dysuria Musculoskeletal Musculoskeletal: Denies arthralgias or myalgias Integumentary Integumentary: Reports none Neurologic Neurologic: Denies abnormal speech, dizziness, focal weakness, loss of vision or numbness Psychiatric Psychiatric: Reports anxiety Hematologic/Lymphatic Hematologic/Lymphatic: Reports none Patient's Goals Of Care . What would you like to achieve or improve as a result of your hospital stay?: Get better Vital Signs Vital Signs Vital Signs: 03/31/25 17:41 Temperature 98.6 F Temperature Source Oral Pulse Rate 88 Respiratory Rate 18 Blood Pressure 157/99 H Blood Pressure Mean 118 Pulse Ox 98 Oxygen Delivery Method Room Air Weight Weight: 54.476 kg Body Mass Index (BMI) 20.0 Physical Exam Const alert and oriented x3 Constitutional Narrative: In distress due to pain HEENT normocephalic and head/scalp atraumatic Eyes EOMs intact bilaterally; Negative for no scleral icterus Neck supple Resp normal respiratory effort and clear to auscultation bilaterally Cardio regular rate and regular rhythm; Negative for no murmurs GI non-tender GI Narrative: Tender abdomen, currently not distended after NG tube. Auscultation: hyperactive bowel sounds Extremity no joint enlargement and no pedal edema Skin no rashes or lesions noted Neuro oriented x3 and moves all extremities Results Lab / Micro Data 03/31/25 18:10 03/31/25 18:47 Labs: Laboratory Results - last 24 hr 03/31/25 18:10: WBC 9.6, RBC 4.38, Hgb 13.4, Hct 39.8, MCV 90.9, MCH 30.6, MCHC 33.7, RDW Std Deviation 44.6 H, RDW Coeff of Shira 13.3, Plt Count 215, MPV 9.3, Immature Gran % (Auto) 0.200, Neut % (Auto) 85.5 H, Lymph % (Auto) 9.1 L, [place] % (Auto) 5.1, Eos % (Auto) 0.0, Baso % (Auto) 0.1, Absolute Neuts (auto) 8.2 H, Absolute Lymphs (auto) 0.88, Nucleated RBC % 0, Sodium Cancelled, Potassium Cancelled, Chloride Cancelled, Carbon Dioxide Cancelled, Anion Gap Cancelled, BUN Cancelled, Creatinine Cancelled, Est GFR (MDRD) Non-Af Cancelled, BUN/Creatinine Ratio Cancelled, Glucose Cancelled, Calcium Cancelled, Total Bilirubin Cancelled, AST Cancelled, ALT Cancelled, Alkaline Phosphatase Cancelled, Total Protein Cancelled, Albumin Cancelled, Globulin Cancelled, Albumin/Globulin Ratio Cancelled, Lipase 38 03/31/25 18:47: Sodium 138, Potassium 3.8, Chloride 102, Carbon Dioxide 23.1, Anion Gap 13, BUN 26 H, Creatinine 0.80, Estim Creat Clear Calc 45.02 L, Est GFR (MDRD) Non-Af 73, BUN/Creatinine Ratio 32.3 H, Glucose 113 H, Calcium 9.0, Total Bilirubin 0.84, AST 34 H, ALT 14, Alkaline Phosphatase 53, Total Protein 6.8, Albumin 4.1, Globulin 2.8, Albumin/Globulin Ratio 1.5 Micro: Microbiology 03/31/25 18:15 Mucosa - Nose SARS-CoV-2, Influenza & RSV (PCR) - Final Imaging Radiology Impression Abdomen/Pelvis CT 03/31/25 18:30 IMPRESSION: 1. Lack of contrast limits evaluation. When compared to CT abdomen/pelvis 08/03/2024, persistent dilated loops of fluid-filled small bowel measuring up to 4.4 cm and concerning for small bowel obstruction. 2. Persistent pneumobilia is nonspecific but may be iatrogenic in origin. 3. Bilateral hypodense cortical renal lesions which may reflect proteinaceous or hemorrhagic cysts. If not already evaluated, an MRI of the kidneys may be obtained for further evaluation. Reading Location: [facility] Assessment & Plan Assessment/Plan (1) SBO (small bowel obstruction): (2) Intractable vomiting: (3) Abdominal adhesions: (4) Pneumobilia: (5) Bilateral renal masses: (6) CKD (chronic kidney disease) stage 3, GFR 30-59 ml/min: QUALIFIERS: Chronic kidney disease stage 3 subtype: stage 3a (GFR 45-59) Qualified Code(s): N18.31 - Chronic kidney disease, stage 3a (7) Anxiety: PLAN: Plan Admission to [facility] SBO: Recurrent, third episode. From adhesions from prior surgeries. N.p.o., continue NG tube to intermittent suction, analgesia, normal saline to replace upper GI losses. 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 Normal LFT, continue to monitor Renal masses: A stable left upper pole cyst. Prior CT in July with IV contrast showed left exophytic mildly enhancing lesion. Currently unenhanced CT showed multiple bilateral hypodense cortical lesions. Was seen by urology last admission in July who recommended observation and follow-up. Patient never had an MRI after discharge. UA now shows microhematuria which was not in July but currently urine is concentrated with positive ketones. Pyuria but no UTI symptoms. She definitely need follow-up for this CKD 3: Age-related nephron loss. Currently creatinine 0.8 slightly lower likely from losing muscle mass (looking at her weight trend). Anxiety: On as needed Ativan at home, not used on daily basis. Continue as needed IV Ativan while here Sepsis Attestation Sepsis Attestation: Sepsis Ruled Out Charges/Coding Visit Charges Inpatient E&M: 06735 Init Hosp L3
[2025-03-31] MEDS: Pantoprazole Sodium 40 MG in 0.9% Normal Saline (100mL MB+) 100 ML 300 MG IV (20:19)
[2025-03-31 20:29] LABS: Urine Bilirubin Dipstick 1 mg/dL (Negative)
--- NOTE | 2025-03-31 20:30 | RAD_ITS ---
PROCEDURE: ABDOMEN SINGLE VIEW (PORTABLE) 03/31/2025 REASON FOR EXAM: NG INSERTION TECHNIQUE: Procedure Code: RADABD_P Modality: DX Procedure: ABDOMEN SINGLE VIEW (PORTABLE) COMPARISON: Abdominal radiograph 08/05/2024 FINDINGS: A nasogastric tube extends below the diaphragm with the tip in the left upper quadrant at the region of the stomach. No pneumothorax. No pleural effusion. No focal lung consolidation. Unremarkable osseous structures. RAD/Abdomen Single View (Portable) IMPRESSION: A nasogastric tube extends below the diaphragm with tip in the left upper quadr ant at the region of the stomach. No pneumothorax. Reading Location: [id number]
[2025-03-31 20:31] LABS: Ketone-Dipstick 150 mg/dl (Negative)
--- OUTSIDE RECORDS SUMMARY | 2025-03-31 20:46 | XMS RPT_ITS | CCD ---
Author Organization [facility] Care Team Providers Care Sld Inclusion Teacher Name Role Phone Scott Mares W Unavailable [...] Unavailable Scott Mares Unavailable Thomae, Santos Unavailable [facility] Yao DUENAS Unavailable Melissa Navarro Unavailable Unavailable Manchak, Danielle Unavailable Unavailable Mercedes Sargent Unavailable Unavailable Darci, Hormigueros Unavailable Unavailable Mercedes Bey Unavailable Unavailable Tamara [...] Beltrán Unavailable Dr. Tavares Cheney Unavailable Suraj [facility], Yao Winters Unavailable Domenico GROUT WORKER, Lily Unavailable Unavailable Keaton RN CORRECTIONAL, Danielle Unavailable Unavailable Emick, Hormigueros Unavailable Unavailable Tr GROUT WORKER, KELBY Unavailable Unavailable Sotero RN, Mercedes Unavailable Unavailable Mushtaq RN, Tamara Schmitz Unavailable Unavailable Ira GROUT WORKER, Estelita Unavailable Unavailable Unavailable Unavailable Andria Steve DO Primary Care Provider Andria Steve DO Primary Care Provider Nataly RN CORRECTIONAL, Kayela Unavailable Unavailable Andria Steve DO Attending Unavailable Andria Steve DO Referring Unavailable Andria Steve DO Consulting Unavailable Slarb GROUT WORKER, Mellisa Unavailable Unavailable Bob PIPE BENDING MACHINE OPERATOR, Mattie Unavailable Liza HUI, Elise Unavailable Unavailable Shannon GROUT WORKER, Heber Unavailable Unavailable Evonne Lara Unavailable ANDRIA [...] Sylvain, Andria Primary Care Unavailable Sylvain, Andria Referring Unavailable Sylvain, Andria Attending Unavailable Sylvain, Andria Primary Care Unavailable Tierra Humphreys Admitting Unavailable Delvin Harris Consulting Unavailable Tae Chopra Attending Unavailable Tierra Humphreys Consulting Unavailable Osman Edwards Consulting Unavailable Allergies Allergy Classification Reported Allergen(s) Allergy Type Date of Onset Reaction(s) Facility (14 sources) codeine; Translations: [codeine] Drug Allergy 06-13-19 17 Mental Status Change [facility] Repository (1 source) Contrast media; Translations: [Contrast Dye] Propensity to adverse reactions to drug (disorder) AOF [facility] Repository (20 sources) Iodinated Contrast; Translations: [Iodinated Contrast] allergy to substance [facility] Work Phone: (7 sources) Contrast media; Translations: [RED DYE] Drug Allergy 05-05-19 16 [facility] (5 sources) Iohexol Drug Allergy 04-12-19 20 [facility] (5 sources) Triiodobenzoic Acids Allergy to substance 07-26-19 23 [facility] (4 sources) Seasonal allergy Propensity to adverse reactions 02-26-20 24 [facility] (1 source) Iohexol Drug Allergy 02-17-20 25 [facility] Repository (1 source) Iodinated Contrast Media Drug allergy (disorder) 02-17-20 25 [facility] Repository Medications Current Medications Medication Drug Class(es) [...] Discontinued Start: 02-10-2020 take 1 capsule by [facility] every eight hours as needed Dicyclomine HCl [...] EACH PO DAILY October 19, 2018 12:00am Supai-3 Fatty Acids (5 sources) Start: 10-15-2018 take 1000 mg by mout h once daily Supai-3 Fatty Acids Active 1000 MG PO DAILY October 14, 2018 11:00pm Start: 10-15-2018 take 1000 mg by mouth once bon ly Supai-3 Fatty Acids Active 1000 MG PO DAILY [...] capsule by mouth daily. Active vits A-C-E-B znivde-snt-arvvud 5,000 unit- 120 mg-60 unit TbER (3 sources) take 1 capsule by mouth once daily vits A-C-E-B lfielr-ply-wkiehh 5,000 unit- 120 mg-60 unit TbER Take 1 capsule by mouth once daily. Active take 1 capsule by mouth once bon ly vits A-C-E-B nzajqs-nuh-gkzqtl 5,000 unit- 120 mg-60 unit TbER Take 1 capsule by mouth once daily. 0 Active Comment on above: Take 1 capsule by mo [facility] once daily. Completed/Discontinued Medications Medication Drug Class(es) [...] take 1 capsule by mouth once daily Supai 3 1000 MG Oral Capsule qd (1000 MG) Inactive Echinacea (20 sources) Echinacea qd Inactive Echinacea qd Act rosalind LUCA RT/ECH PUR AE HI X (ECHINACEA & GOLDENSEAL ORAL) (2 sources) GOLDENSEAL RT/EC H PUR AE HI X (ECHINACEA & GOLDENSEAL ORAL) Take by [...] Refills: 0 Ordered: 23-Apr-2021 Sylvain GASPAR, Andria Setve DO, Andria Start : 23-Apr-2021 Active Comments: verbally called to pharmacy - [facility] 04-23-21 take 1 tablet by blair th every six hours as needed LORazepam (ATIVAN) 1 mg tablet Take 1 mg by mouth every 6 hours as needed for anxiety. Active Comment on above: verbally called to p harmacy - [facility] 04-23-21 Mail order. oarrs re viewed and ok, faxed to mail order pharm [facility] pt [facility] no [...] 30-Jan-2020 Inactive Comments: called to [facility] 01/20/20 Start: 10-17-2016 End: 10-24-2016 take 1 capsule by mouth twice daily Macrobid 100 MG Oral Capsule 1 (one) Capsule bid for 7 days Quantity: 14 {Capsule} Refills: 0 Ordered: 17-Oct-2016 Alannah Winters MD Start : 17-Oct-2016 End : 24-Oct-2016 Inactive Comment on above: called to [facility] ravig [facility] 01/20/20 Supai 3 1000 MG Oral Capsule (12 sources) take 1 capsule by mouth once daily Supai 3 1000 MG Oral Capsule qd (1000 MG) Inactive omega-3 acid ethyl esters (long term) 1000 mg oral capsule (7 sources) take 1 capsule by mouth once daily Supai 3 1000 MG Oral Capsule qd (1000 [...] Tablet qd (1000 UNIT) Active vits A-C-E-B jlxxqz-kll-yugbyj (LIPOTRIAD, WITH LUTEIN,) 5,000 unit- 120 mg-60 unit TbER (1 source) take 1 capsule by mouth once daily vits A-C-E-B mmkbpj-izg-mjfevy (LIPOTRIAD, WITH LUTEIN,) 5,000 unit- 120 mg-60 [...] Vis sangita 02-16-2025 Internal Medicine Office Visit [facility] Internal [facility] [address] [place], [place] [address] OFFICE VISIT Date of Service: 02/16/25 MR#: [id number] Acct: [id number] Name: MARY LI Rep #: [id number] Provider: Dr. Andria mix DO Age/Sex: 84/F Location: [facility] Status: Signed Intake Vital Signs 08/04/24 10:53 [...] Reasons: General Chief Complaint: MCR /gen med Travel Registered Nurse Icu Required: No Is patient in pain?: No [...] No Nurse's Note: pt here for gen [facility] Medical History (Updated 02/16/25 @ 14:32 by [...] content not included)... Normal [facility] MRI ABDOMEN WO/W IVCONon MRI ABDOMEN WO/W [...] mass or adenopathy in the visualized abdomen Lab Nurse: BLOSSOM Transcribe Date/Time: Oct 28 2024 9:01A Dictated by : ZBIGNIEW SUE MD This examination was interpreted and the report reviewed and electronically signed by: ZBIGNIEW SUE MD on Oct 28 2024 9:11AM EST [id number] Normal [facility] Basic Metabolic Profile (BMP )on 08-07-2024 BUN Normal 4-19 [facility] Comment on above: Result Comment: Canc elled via OM: Order cancelled - Patient discharged Performed By: #### L 100.0100, L500.2500 ####[facility] [address] [place], [address] BUN/CRE Normal 10-20 [facility] Comment on above: Result Comment: Canc elled via OM: Order cancelled - Patient discharged Performed By: #### L 100.0100, L500.2500 ####[facility] [address] [place], [address] Calcium Normal 7.6-11.0 [facility] Comment on above: Result Comment: Canc elled via OM: Order cancelled - Patient discharged Performed By: #### L 100.0100, L500.2500 ####[facility] [address] [place], [address] CL Normal 98-108 [facility] Comment on above: Result Comment: Canc elled via OM: Order cancelled - Patient discharged Performed By: #### L 100.0100, L500.2500 ####[facility] [address] [place], [address] CO2 Normal 21.0-32.0 [facility] Comment on above: Result Comment: Canc elled via OM: Order cancelled - Patient discharged Performed By: #### L 100.0100, L500.2500 ####[facility] [address] [place], [address] CREAT,SERUM Normal 0.70-1.20 [facility] Comment on above: Result Comment: Canc elled via OM: Order cancelled - Patient discharged Performed By: #### L 100.0100, L500.2500 ####[facility] [address] [place], [address] eGFR Normal >60 [facility] Comment on above: Result Comment: Canc elled via OM: Order cancelled - Patient discharged Performed By: #### L 100.0100, L500.2500 ####[facility] [address] [place], [address] GAP Normal 5-15 [facility] Comment on above: Result Comment: Canc elled via OM: Order cancelled - Patient discharged Performed By: #### L 100.0100, L500.2500 ####[facility] [address] [place], [address] GLU Normal 70-99 [facility] Comment on above: Result Comment: Canc elled via OM: Order cancelled - Patient discharged Performed By: #### L 100.0100, L500.2500 ####[facility] [address] [place], [address] Potassium Normal 3.3-5.1 [facility] Comment on above: Result Comment: Canc elled via OM: Order cancelled - Patient discharged Performed By: #### L 100.0100, L500.2500 ####[facility] [address] [place], [address] Basic Metabolic Profile (BMP) Normal 133-145 [facility] Comment on above: Result Comment: Canc elled via OM: Order cancelled - Patient discharged Performed By: #### L 100.0100, L500.2500 ####[facility] [address] [place], [address] CBC W/Diff, Automatedon 05-0 -2024 Absolute Neut Normal 2.0-7.7 [facility] Comment on above: Result Comment: Canc elled via OM: Order cancelled - Patient discharged Performed By: #### L 100.0100, L500.2500 ####[facility] [address] [place], [address] HCT Normal 37-47 [facility] Comment on above: Result Comment: Canc elled via OM: Order cancelled - Patient discharged Performed By: #### L 100.0100, L500.2500 ####[facility] [address] [place], [address] HGB Normal 12.0-15.0 [facility] Comment on above: Result Comment: Canc elled via OM: Order cancelled - Patient discharged Performed By: #### L 100.0100, L500.2500 ####[facility] [address] [place], [address] MCH Normal 27.0-32.0 [facility] Comment on above: Result Comment: Canc elled via OM: Order cancelled - Patient discharged Performed By: #### L 100.0100, L500.2500 ####[facility] [address] [place], [address] MCHC Normal 32-36 [facility] Comment on above: Result Comment: Canc elled via OM: Order cancelled - Patient discharged Performed By: #### L 100.0100, L500.2500 ####[facility] [address] [place], [address] MCV Normal 81-99 [facility] Comment on above: Result Comment: Canc elled via OM: Order cancelled - Patient discharged Performed By: #### L 100.0100, L500.2500 ####[facility] [address] [place], [address] NEUT% Normal 47-70 [facility] Comment on above: Result Comment: Canc elled via OM: Order cancelled - Patient discharged Performed By: #### L 100.0100, L500.2500 ####[facility] [address] [place], [address] PLT Normal 150-450 [facility] Comment on above: Result Comment: Canc elled via OM: Order cancelled - Patient discharged Performed By: #### L 100.0100, L500.2500 ####[facility] [address] [place], [address] RBC Normal 4.2-5.4 [facility] Comment on above: Result Comment: Canc elled via OM: Order cancelled - Patient discharged Performed By: #### L 100.0100, L500.2500 ####[facility] [address] [place], [address] RDW CV Normal 11.6-14.6 [facility] Comment on above: Result Comment: Canc elled via OM: Order cancelled - Patient discharged Performed By: #### L 100.0100, L500.2500 ####[facility] [address] [place], [address] RDW SD Normal 35.1-43.9 [facility] Comment on above: Result Comment: Canc elled via OM: Order cancelled - Patient discharged Performed By: #### L 100.0100, L500.2500 ####[facility] [address] [place], [address] WBC Normal 4.4-11.0 [facility] Comment on above: Result Comment: Canc elled via OM: Order cancelled - Patient discharged Performed By: #### L 100.0100, L500.2500 ####[facility] [address] [place], [address] Basic Metabolic Profile (BMP )on 08-06-2024 BUN/CRE 21.3 RATIO High 10-20 [facility] Comment on above: Performed By: #### L 500.2500, L100.0100 #### [facility] [address] [place], [address] Calcium [Mass/Vol] 8.4 mg/dL Normal 7.6-11.0 [facility] Comment on above: Performed By: #### L 500.2500, L100.0100 #### [facility] [address] [place], [address] Chloride [Moles/Vol] 104 mmol/L Normal 98-108 [facility] Comment on above: Performed By: #### L 500.2500, L100.0100 #### [facility] [address] [place], [address] CO2 [Moles/Vol] 23.0 mmol/L Normal 21.0-32.0 [facility] Comment on above: Performed By: #### L 500.2500, L100.0100 #### [facility] [address] [place], [address] Creatinine [Mass/Vol] 0.73 mg/dL Normal 0.70-1.20 [facility] Comment on above: Performed By: #### L 500.2500, L100.0100 #### [facility] [address] [place], [address] ECRCL 47.19 ml/min Low 50-250 [facility] Comment on above: Performed By: #### L 500.2500, L100.0100 #### [facility] [address] [place], [address] GAP 9 Normal 5-15 [facility] Comment on above: Performed By: #### L 500.2500, L100.0100 #### [facility] [address] [place], [address] GFR/1.73 sq M.predicted among non-blacks MDRD (S/P/Bld) [Vol rate/Area] 82 mL/min/{1.73_m2} Normal >60 [facility] Comment on above: Result Comment: mL/m in/1.73m2 CKD-EPI Creatinine Equation (2020) Performed By: #### L 500.2500, L100.0100 #### [facility] [address] [place], [address] Glucose [Mass/Vol] 91 mg/dL Normal 70-99 [facility] Comment on above: Performed By: #### L 500.2500, L100.0100 #### [facility] [address] [place], [address] Potassium [Moles/Vol] 3.9 mmol/L Normal 3.3-5.1 [facility] Comment on above: Performed By: #### L 500.2500, L100.0100 #### [facility] [address] [place], [address] Sodium [Moles/Vol] 136 mmol/L Normal 133-145 [facility] Comment on above: Performed By: #### L 500.2500, L100.0100 #### [facility] [address] [place], [address] Urea nitrogen [Mass/Vol] 16 mg/dL Normal 4-19 [facility] Comment on above: Performed By: #### L 500.2500, L100.0100 #### [facility] [address] [place], [address] CBC W/Diff, Automatedon 05-0 2-2025 Absolute Lymph 1.76 X10 3/uL Normal 0.83-4.51 [facility] Comment on above: Performed By: #### L 500.2500, L100.0100 #### [facility] [address] [place], [address] Absolute Neut 2.3 X10 3/uL Normal 2.0-7.7 [facility] Comment on above: Performed By: #### L 500.2500, L100.0100 #### [facility] [address] [place], [address] Basophils/100 WBC (Bld) 0.4 % Normal 0-1 [facility] Comment on above: Performed By: #### L 500.2500, L100.0100 #### [facility] [address] [place], [address] Eosinophils/100 WBC (Bld) 3.0 % Normal 0-5 [facility] Comment on above: Performed By: #### L 500.2500, L100.0100 #### [facility] [address] [place], [address] Erythrocyte distribution width (RBC) [Ratio] 13.0 % Normal 11.6-14.6 [facility] Comment on above: Performed By: #### L 500.2500, L100.0100 #### [facility] [address] [place], [address] Hematocrit (Bld) [Volume fraction] 31.7 % Low 37-47 [facility] Comment on above: Performed By: #### L 500.2500, L100.0100 #### [facility] [address] [place], [address] Hemoglobin (Bld) [Mass/Vol] 10.6 g/dL Low 12.0-15.0 [facility] Comment on above: Performed By: #### L 500.2500, L100.0100 #### [facility] [address] [place], [address] IG% 0.200 Normal 0.0-0.9 [facility] Comment on above: Result Comment: IG% - Immature Granulocytes (promyelocytes, myelocytes and metamyelocytes) > 1% indicates that a LEFT SHIFT is Present. Performed By: #### L 500.2500, L100.0100 #### [facility] [address] [place], [address] Lymphocytes/100 WBC (Bld) 38.1 % Normal 19-41 [facility] Comment on above: Performed By: #### L 500.2500, L100.0100 #### [facility] [address] [place], [address] MCH (RBC) [Entitic mass] 30.5 pg Normal 27.0-32.0 [facility] Comment on above: Performed By: #### L 500.2500, L100.0100 #### [facility] [address] [place], [address] MCHC (RBC) [Mass/Vol] 33.4 g/dL Normal 32-36 [facility] Comment on above: Performed By: #### L 500.2500, L100.0100 #### [facility] [address] [place], [address] MCV (RBC) [Entitic vol] 91.4 fL Normal 81-99 [facility] Comment on above: Performed By: #### L 500.2500, L100.0100 #### [facility] [address] [place], [address] Monocytes/100 WBC (Bld) 8.0 % Normal 0-10 [facility] Comment on above: Performed By: #### L 500.2500, L100.0100 #### [facility] [address] [place], [address] Neutrophils/100 WBC (Bld) 50.3 % Normal 47-70 [facility] Comment on above: Performed By: #### L 500.2500, L100.0100 #### [facility] [address] [place], [address] Nucleated RBC (Bld) [#/Vol] 0 10*3/uL Normal 0-5 [facility] Comment on above: Performed By: #### L 500.2500, L100.0100 #### [facility] [address] [place], [address] Platelet mean volume (Bld) [Entitic vol] 9.4 fL Normal 6.2-12.0 [facility] Comment on above: Performed By: #### L 500.2500, L100.0100 #### [facility] [address] [place], [address] Platelets (Bld) [#/Vol] 189 10*3/uL Normal 150-450 [facility] Comment on above: Performed By: #### L 500.2500, L100.0100 #### [facility] [address] [place], [address] RBC (Bld) [#/Vol] 3.47 10*6/uL Low 4.2-5.4 [facility] Comment on above: Performed By: #### L 500.2500, L100.0100 #### [facility] [address] [place], [address] RDW SD 43.1 fl Normal 35.1-43.9 [facility] Comment on above: Performed By: #### L 500.2500, L100.0100 #### [facility] [address] [place], [address] WBC (Bld) [#/Vol] 4.6 10*3/uL Normal 4.4-11.0 [facility] Comment on above: Performed By: #### L 500.2500, L100.0100 #### [facility] [address] [place], [address] Basic Metabolic Profile (BMP )on 08-05-2024 BUN/CRE 18.1 RATIO Normal 10-20 [facility] Comment on above: Performed By: #### L 501.2300, L500.2500, L501.5200, L100.0100 ####[facility] [address] [place], [address] Calcium [Mass/Vol] 8.5 mg/dL Normal 7.6-11.0 [facility] Comment on above: Performed By: #### L 501.2300, L500.2500, L501.5200, L100.0100 ####[facility] [address] [place], [address] Chloride [Moles/Vol] 104 mmol/L Normal 98-108 [facility] Comment on above: Performed By: #### L 501.2300, L500.2500, L501.5200, L100.0100 ####[facility] [address] [place], [address] CO2 [Moles/Vol] 25.0 mmol/L Normal 21.0-32.0 [facility] Comment on above: Performed By: #### L 501.2300, L500.2500, L501.5200, L100.0100 ####[facility] [address] [place], [address] Creatinine [Mass/Vol] 0.85 mg/dL Normal 0.70-1.20 [facility] Comment on above: Performed By: #### L 501.2300, L500.2500, L501.5200, L100.0100 ####[facility] [address] [place], [address] ECRCL 44.41 ml/min Low 50-250 [facility] Comment on above: Performed By: #### L 501.2300, L500.2500, L501.5200, L100.0100 ####[facility] [address] [place], [address] GAP 7 Normal 5-15 [facility] Comment on above: Performed By: #### L 501.2300, L500.2500, L501.5200, L100.0100 ####[facility] [address] [place], [address] GFR/1.73 sq M.predicted among non-blacks MDRD (S/P/Bld) [Vol rate/Area] 68 mL/min/{1.73_m2} Normal >60 [facility] Comment on above: Result Comment: mL/m in/1.73m2 CKD-EPI Creatinine Equation (2020) Performed By: #### L 501.2300, L500.2500, L501.5200, L100.0100 ####[facility] [address] [place], [address] Glucose [Mass/Vol] 89 mg/dL Normal 70-99 [facility] Comment on above: Performed By: #### L 501.2300, L500.2500, L501.5200, L100.0100 ####[facility] [address] [place], [address] Potassium [Moles/Vol] 4.2 mmol/L Normal 3.3-5.1 [facility] Comment on above: Performed By: #### L 501.2300, L500.2500, L501.5200, L100.0100 ####[facility] [address] [place], [address] Sodium [Moles/Vol] 135 mmol/L Normal 133-145 [facility] Comment on above: Performed By: #### L 501.2300, L500.2500, L501.5200, L100.0100 ####[facility] [address] [place], [address] Urea nitrogen [Mass/Vol] 15 mg/dL Normal 4-19 [facility] Comment on above: Performed By: #### L 501.2300, L500.2500, L501.5200, L100.0100 ####[facility] [address] [place], [address] CBC W/Diff, Automatedon 05-0 -2024 Absolute Lymph 1.61 X10 3/uL Normal 0.83-4.51 [facility] Comment on above: Performed By: #### L 501.2300, L500.2500, L501.5200, L100.0100 #### [facility] [address] [place], [address] Absolute Neut 2.6 X10 3/uL Normal 2.0-7.7 [facility] Comment on above: Performed By: #### L 501.2300, L500.2500, L501.5200, L100.0100 #### [facility] [address] [place], [address] Basophils/100 WBC (Bld) 0.4 % Normal 0-1 [facility] Comment on above: Performed By: #### L 501.2300, L500.2500, L501.5200, L100.0100 #### [facility] [address] [place], [address] Eosinophils/100 WBC (Bld) 3.5 % Normal 0-5 [facility] Comment on above: Performed By: #### L 501.2300, L500.2500, L501.5200, L100.0100 #### [facility] [address] [place], [address] Erythrocyte distribution width (RBC) [Ratio] 13.0 % Normal 11.6-14.6 [facility] Comment on above: Performed By: #### L 501.2300, L500.2500, L501.5200, L100.0100 #### [facility] [address] [place], [address] Hematocrit (Bld) [Volume fraction] 31.5 % Low 37-47 [facility] Comment on above: Performed By: #### L 501.2300, L500.2500, L501.5200, L100.0100 #### [facility] [address] [place], [address] Hemoglobin (Bld) [Mass/Vol] 10.5 g/dL Low 12.0-15.0 [facility] Comment on above: Performed By: #### L 501.2300, L500.2500, L501.5200, L100.0100 #### [facility] [facility] [address] [place], [address] IG% 0.200 Normal 0.0-0.9 [facility] Comment on above: Result Comment: IG% - Immature Granulocytes (promyelocytes, myelocytes and metamyelocytes) > 1% indicates that a LEFT SHIFT is Present. Performed By: #### L 501.2300, L500.2500, L501.5200, L100.0100 #### [facility] [address] [place], [address] Lymphocytes/100 WBC (Bld) 33.3 % Normal 19-41 [facility] Comment on above: Performed By: #### L 501.2300, L500.2500, L501.5200, L100.0100 #### [facility] [address] [place], [address] MCH (RBC) [Entitic mass] 30.3 pg Normal 27.0-32.0 [facility] Comment on above: Performed By: #### L 501.2300, L500.2500, L501.5200, L100.0100 #### [facility] [address] [place], [address] MCHC (RBC) [Mass/Vol] 33.3 g/dL Normal 32-36 [facility] Comment on above: Performed By: #### L 501.2300, L500.2500, L501.5200, L100.0100 #### [facility] [address] [place], [address] MCV (RBC) [Entitic vol] 91.0 fL Normal 81-99 [facility] Comment on above: Performed By: #### L 501.2300, L500.2500, L501.5200, L100.0100 #### [facility] [address] [place], [address] Monocytes/100 WBC (Bld) 9.1 % Normal 0-10 [facility] Comment on above: Performed By: #### L 501.2300, L500.2500, L501.5200, L100.0100 #### [facility] [address] [place], [address] Neutrophils/100 WBC (Bld) 53.5 % Normal 47-70 [facility] Comment on above: Performed By: #### L 501.2300, L500.2500, L501.5200, L100.0100 #### [facility] [address] [place], [address] Nucleated RBC (Bld) [#/Vol] 0 10*3/uL Normal 0-5 [facility] Comment on above: Performed By: #### L 501.2300, L500.2500, L501.5200, L100.0100 #### [facility] [address] [place], [address] Platelet mean volume (Bld) [Entitic vol] 9.4 fL Normal 6.2-12.0 [facility] Comment on above: Performed By: #### L 501.2300, L500.2500, L501.5200, L100.0100 #### [facility] [address] [place], [address] Platelets (Bld) [#/Vol] 185 10*3/uL Normal 150-450 [facility] Comment on above: Performed By: #### L 501.2300, L500.2500, L501.5200, L100.0100 #### [facility] [address] [place], [address] RBC (Bld) [#/Vol] 3.46 10*6/uL Low 4.2-5.4 [facility] Comment on above: Performed By: #### L 501.2300, L500.2500, L501.5200, L100.0100 #### [facility] [address] [place], [address] RDW SD 42.6 fl Normal 35.1-43.9 [facility] Comment on above: Performed By: #### L 501.2300, L500.2500, L501.5200, L100.0100 #### [facility] [address] [place], [address] WBC (Bld) [#/Vol] 4.8 10*3/uL Normal 4.4-11.0 [facility] Comment on above: Performed By: #### L 501.2300, L500.2500, L501.5200, L100.0100 #### [facility] [address] [place], [address] Magnesiumon 08-05-2024 Magnesium [Mass/Vol] 2.1 mg/dL Normal 1.5-2.2 [facility] Comment on above: Performed By: #### L 501.2300, L500.2500, L501.5200, L100.0100 ####[facility] [address] [place], [address] Phosphoruson 08-05-2024 Phosphate [Mass/Vol] 2.3 mg/dL Low 2.7-4.5 [facility] Comment on above: Performed By: #### L 501.2300, L500.2500, L501.5200, L100.0100 ####[facility] [address] [place], [address] Small Bowel Series Onlyon Small Bowel Series Only [facility] Imaging Services [address] [place] [address] Small Bowel Series Only MR#: [id number] Acct: [id number] Name: MARY LI Rep #: [id number] : 1940 F 83 From: Ray Ayala MD PCP: Dr. Andria Steve DO Status: ADM IN Study: Small Bowel Series Only Date of Exam: 08/05/24 Exam# [id number] Ordering Dr: Delvin Harris PROCEDURE: SMALL BOWEL SERIES ONLY, 08/05/2024 REASON FOR EXAM: SBO TECHNIQUE: Route Cdl Driver AP images of the abdomen/pelvis were obtained. [...] of a radiologist. COMPARISON: 08/04/2024 FINDINGS: On car rental sales assistant images, there is no visible bowel dilatation. [...] 3. Additional description as above. Reading Location: [id number] CC: Dr. Delvin Harris MD; Dr. Andria Steve DO Lab Nurse: Signed Normal [facility] Urine Cultureon 08-05-2024 URC Escherichia coli Brinkley Count >100,000 Escherichia coli: REACTION Ampicillin Islt NATALIO <=2 Ampicillin+Sulbac Islt NATALIO <=2 S Cefepime Islt NATALIO <=0.12 S cefTRIAXone Islt NATALIO <=0.25 S Ciprofloxacin Islt NATALIO <=0.06 S B-Lactamase Extended Susc Islt NEG Gentamicin Islt NATALIO <=1 S levoFLOXacin Islt NATALIO <=0.12 S Meropenem Islt NATALIO <=0.25 S Nitrofurantoin Islt NATALIO <=16 S Pip+Tazo Islt NATALIO <=4 S TMP SMX Islt NATALIO >=320 R Normal [facility] Comment on above: Performed By: #### M 100.2200 ####[facility] [address] [facility] [place], [place], [id number] Abdomen Single View (Portabl e)on 08-04-2024 Abdomen Single View (Portable) [facility] Imaging Services [address] [place], [place] [address] Abdomen Single View (Portable) MR#: [id number] Acct: [id number] Name: MARY LI CHRISTO Rep #: [id number] : 1940 F 83 From: Amilcar Rosenbaum MD PCP: Dr. Andria Steve, DO Status: ADM IN Study: Abdomen Single View (Portable) Date of Exam: 0 08/04/24 Exam# [id number] Ordering Dr: Tierra Humphreys MD PROCEDURE: ABDOMEN [...] Tierra Humphreys MD; Dr. Andria Steve DO Lab Nurse: Signed Normal [facility] CBC W/Diff, Automatedon - Absolute Lymph 1.22 X10 3/uL Normal 0.83-4.51 [facility] Comment on above: Performed By: #### L 100.0100, L500.4050 ####[facility] [address] [place], [address] Absolute Neut 5.2 X10 3/uL Normal 2.0-7.7 [facility] Comment on above: Performed By: #### L 100.0100, L500.4050 ####[facility] [address] [place], [address] Basophils/100 WBC (Bld) 0.1 % Normal 0-1 [facility] Comment on above: Performed By: #### L 100.0100, L500.4050 ####[facility] [address] [place], [address] Eosinophils/100 WBC (Bld) 0.4 % Normal 0-5 [facility] Comment on above: Performed By: #### L 100.0100, L500.4050 ####[facility] [address] [place], [address] Erythrocyte distribution width (RBC) [Ratio] 13.2 % Normal 11.6-14.6 [facility] Comment on above: Performed By: #### L 100.0100, L500.4050 ####[facility] [address] [place], [address] Hematocrit (Bld) [Volume fraction] 32.5 % Low 37-47 [facility] Comment on above: Performed By: #### L 100.0100, L500.4050 ####[facility] [address] [place], [address] Hemoglobin (Bld) [Mass/Vol] 10.7 g/dL Low 12.0-15.0 [facility] Comment on above: Performed By: #### L 100.0100, L500.4050 ####[facility] [address] [place], [address] IG% 0.400 Normal 0.0-0.9 [facility] Comment on above: Result Comment: IG% - Immature Granulocytes (promyelocytes, myelocytes and metamyelocytes) > 1% indicates that a LEFT SHIFT is Present. Performed By: #### L 100.0100, L500.4050 ####[facility] [address] [place], [address] Lymphocytes/100 WBC (Bld) 17.2 % Low 19-41 [facility] Comment on above: Performed By: #### L 100.0100, L500.4050 ####[facility] [address] [place], [address] MCH (RBC) [Entitic mass] 30.1 pg Normal 27.0-32.0 [facility] Comment on above: Performed By: #### L 100.0100, L500.4050 ####[facility] [address] [place], [address] MCHC (RBC) [Mass/Vol] 32.9 g/dL Normal 32-36 [facility] Comment on above: Performed By: #### L 100.0100, L500.4050 ####[facility] [address] [place], [address] MCV (RBC) [Entitic vol] 91.3 fL Normal 81-99 [facility] Comment on above: Performed By: #### L 100.0100, L500.4050 ####[facility] [address] [place], [address] Monocytes/100 WBC (Bld) 7.9 % Normal 0-10 [facility] Comment on above: Performed By: #### L 100.0100, L500.4050 ####[facility] [address] [place], [address] Neutrophils/100 WBC (Bld) 74.0 % High 47-70 [facility] Comment on above: Performed By: #### L 100.0100, L500.4050 ####[facility] [address] [place], [address] Nucleated RBC (Bld) [#/Vol] 0 10*3/uL Normal 0-5 [facility] Comment on above: Performed By: #### L 100.0100, L500.4050 ####[facility] [address] [place], [address] Platelet mean volume (Bld) [Entitic vol] 9.8 fL Normal 6.2-12.0 [facility] Comment on above: Performed By: #### L 100.0100, L500.4050 ####[facility] [address] [place], [address] Platelets (Bld) [#/Vol] 201 10*3/uL Normal 150-450 [facility] Comment on above: Performed By: #### L 100.0100, L500.4050 ####[facility] [address] [place], [address] RBC (Bld) [#/Vol] 3.56 10*6/uL Low 4.2-5.4 [facility] Comment on above: Performed By: #### L 100.0100, L500.4050 ####[facility] [address] [place], [address] RDW SD 44.2 fl High 35.1-43.9 [facility] Comment on above: Performed By: #### L 100.0100, L500.4050 ####[facility] [address] [place], [address] WBC (Bld) [#/Vol] 7.1 10*3/uL Normal 4.4-11.0 [facility] Comment on above: Performed By: #### L 100.0100, L500.4050 ####[facility] [address] [place], [address] Comprehensive Metabolic Prof deon 08-04-2024 Albumin [Mass/Vol] 3.5 g/dL Normal 3.4-4.8 [facility] Comment on above: Performed By: #### L 100.0100, L500.4050 ####[facility] [address] [place], [address] Albumin/Globulin [Mass ratio] 1.4 {ratio} Normal 0.9-2.4 [facility] Comment on above: Performed By: #### L 100.0100, L500.4050 ####[facility] [address] [place], [address] ALK PHOS 53 U/L Normal 35-104 [facility] Comment on above: Performed By: #### L 100.0100, L500.4050 ####[facility] [address] [place], [address] ALT [Catalytic activity/Vol] 16 U/L Normal <=34 [facility] Comment on above: Performed By: #### L 100.0100, L500.4050 ####[facility] [address] [place], [address] AST [Catalytic activity/Vol] 29 U/L Normal <=31 [facility] Comment on above: Performed By: #### L 100.0100, L500.4050 ####[facility] [address] [place], [address] Bilirubin [Mass/Vol] 0.58 mg/dL Normal 0.00-1.30 [facility] Comment on above: Performed By: #### L 100.0100, L500.4050 ####[facility] [address] [place], [address] BUN/CRE 23.2 RATIO High 10-20 [facility] Comment on above: Performed By: #### L 100.0100, L500.4050 ####[facility] [address] [place], [address] Calcium [Mass/Vol] 8.8 mg/dL Normal 7.6-11.0 [facility] Comment on above: Performed By: #### L 100.0100, L500.4050 ####[facility] [address] [place], [address] Chloride [Moles/Vol] 100 mmol/L Normal 98-108 [facility] Comment on above: Performed By: #### L 100.0100, L500.4050 ####[facility] [address] [place], [address] CO2 [Moles/Vol] 23.1 mmol/L Normal 21.0-32.0 [facility] Comment on above: Performed By: #### L 100.0100, L500.4050 ####[facility] [address] [place], [address] Creatinine [Mass/Vol] 1.13 mg/dL Normal 0.70-1.20 [facility] Comment on above: Performed By: #### L 100.0100, L500.4050 ####[facility] [address] [place], [address] ECRCL 33.94 ml/min Low 50-250 [facility] Comment on above: Performed By: #### L 100.0100, L500.4050 ####[facility] [address] [place], [address] GAP 10 Normal 5-15 [facility] Comment on above: Performed By: #### L 100.0100, L500.4050 ####[facility] [address] [place], [address] GFR/1.73 sq M.predicted among non-blacks MDRD (S/P/Bld) [Vol rate/Area] 48 mL/min/{1.73_m2} Low >60 [facility] Comment on above: Result Comment: mL/m in/1.73m2 CKD-EPI Creatinine Equation (2020) Performed By: #### L 100.0100, L500.4050 ####[facility] [address] [place], [address] Globulin (S) [Mass/Vol] 2.5 g/dL Normal 2.2-4.2 [facility] Comment on above: Performed By: #### L 100.0100, L500.4050 ####[facility] [address] [place], [address] Glucose [Mass/Vol] 93 mg/dL Normal 70-99 [facility] Comment on above: Performed By: #### L 100.0100, L500.4050 ####[facility] [address] [place], [address] Potassium [Moles/Vol] 4.7 mmol/L Normal 3.3-5.1 [facility] Comment on above: Performed By: #### L 100.0100, L500.4050 ####[facility] [address] [place], [address] Sodium [Moles/Vol] 134 mmol/L Normal 133-145 [facility] Comment on above: Performed By: #### L 100.0100, L500.4050 ####[facility] [address] [place], [address] T PROT 6.1 g/dL Normal 5.9-8.4 [facility] Comment on above: Performed By: #### L 100.0100, L500.4050 ####[facility] [address] [place], [address] Urea nitrogen [Mass/Vol] 26 mg/dL High 4-19 [facility] Comment on above: Performed By: #### L 100.0100, L500.4050 ####[facility] [address] [place], [address] Consultation - Surgicalon Consultation - Surgical [facility] Medical Records Department [address] [place] [address] Consultation - Surgical 08/04/24 0737 MR#: [id number] Acct: [id number] Name: MARY LI CHRISTO Rep #: [id number] : 1940 83 From: Delvin Harris MD PCP: Dr. Andria Steve, DO Status:ADM IN [facility] Assessment/Plan (1) SBO (small bowel [...] later this afternoon. Delvin Harris MD Pager: [facility] [address] [place] [address] [facility], [address] [place] [address] Office: HPI Consult Data Date of Consult: [...] last June that resolved on its own. [facility] Medical History Hx of small bowel obstruction [...] content not included)... Normal [facility] Consultation - Urologyon Consultation - Urology [facility] Medical Records Department [address] [place] [address] Consultation - Urology 08/04/24 1205 MR#: [id number] Acct: [id number] Name: MARY LI Rep #: [id number] : 1940 83 From: Osman Edwards MD PCP: Dr. Andria Steve, DO Status:ADM IN [place] [facility] Assessment Plan Assessment/Plan (1) Left renal mass: [...] once she is discharged in the hospital. [facility] Medical History Hx of small bowel obstruction [...] 79.7 H, Lymph % (Auto) 13.2 L, [place] % (Auto) 6.3, Eos % (Auto) 0.1, Baso % (Auto) 0.2, A bsolute Neuts (auto) 8.2 H, Absolute Lymphs (auto) 1.35, Nucleated RBC % 0, Sodiu (more content not included)... Normal [facility] Abdomen Single View (Portabl e)on 08-03-2024 Abdomen Single View (Portable) [facility] Imaging Services [address] [place] [address] Abdomen Single View (Portable) MR#: [id number] Acct: [id number] Name: MARY LI CHRISTO Rep #: [id number] : 1940 F 83 From: Oscar Tabares MD PCP: Dr. Andria Steve DO Status: ADM IN Study: Abdomen Single View (Portable) Date of Exam: 0 08/03/24 Exam# [id number] Ordering Dr: Marino Burgos MD PROCEDURE: ABDOMEN [...] the stomach. No bowel obstruction. Reading Location: [id number] CC: Dr. Andria Steve DO; Dr. Marino Burgos MD Lab Nurse: Signed Normal [facility] Abdomen/Pelvis W IV Cont ONL Yon 08-03-2024 Abdomen/Pelvis W IV Cont ONLY [facility] Imaging Services [address] [facility] [place] [address] Abdomen/Pelvis W IV Cont ONLY MR#: [id number] Acct: [id number] Name: MARY LI Rep #: [id number] : 1940 F 83 From: Addison arias MD PCP: Dr. Andria Steve DO Status: REG ER Study: Abdomen/Pelvis W IV Cont ONLY Date of Exam: Exam# [id number] Ordering Dr: Marino Burgos MD PROCEDURE: ABDOMEN/PELVIS [...] Other findings as described above. Reading [facility] CC: Dr. Andria Steve DO; Dr. Marino Burgos MD Lab Nurse: Signed Normal [facility] CBC W/Diff, Automatedon 04-2 Absolute Lymph 1.61 X10 3/uL Normal 0.83-4.51 [facility] Comment on above: Performed By: #### L 100.0100, L503.6005, L500.4050 ####[facility] [address] [place], [address] Absolute Neut 7.0 X10 3/uL Normal 2.0-7.7 [facility] Comment on above: Performed By: #### L 100.0100, L503.6005, L500.4050 ####[facility] [address] [place], [address] Basophils/100 WBC (Bld) 0.1 % Normal 0-1 [facility] Comment on above: Performed By: #### L 100.0100, L503.6005, L500.4050 ####[facility] [address] [place], [address] Eosinophils/100 WBC (Bld) 0.1 % Normal 0-5 [facility] Comment on above: Performed By: #### L 100.0100, L503.6005, L500.4050 ####[facility] [address] [place], [address] Erythrocyte distribution width (RBC) [Ratio] 13.2 % Normal 11.6-14.6 [facility] Comment on above: Performed By: #### L 100.0100, L503.6005, L500.4050 ####[facility] [address] [place], [address] Hematocrit (Bld) [Volume fraction] 38.3 % Normal 37-47 [facility] Comment on above: Performed By: #### L 100.0100, L503.6005, L500.4050 ####[facility] [address] [place], [address] Hemoglobin (Bld) [Mass/Vol] 12.9 g/dL Normal 12.0-15.0 [facility] Comment on above: Performed By: #### L 100.0100, L503.6005, L500.4050 ####[facility] [address] [place], [address] IG% 0.200 Normal 0.0-0.9 [facility] Comment on above: Result Comment: IG% - Immature Granulocytes (promyelocytes, myelocytes and metamyelocytes) > 1% indicates that a LEFT SHIFT is Present. Performed By: #### L 100.0100, L503.6005, L500.4050 ####[facility] [address] [place], [address] Lymphocytes/100 WBC (Bld) 17.3 % Low 19-41 [facility] Comment on above: Performed By: #### L 100.0100, L503.6005, L500.4050 ####[facility] [address] [place], [address] MCH (RBC) [Entitic mass] 30.4 pg Normal 27.0-32.0 [facility] Comment on above: Performed By: #### L 100.0100, L503.6005, L500.4050 ####[facility] [address] [place], [address] MCHC (RBC) [Mass/Vol] 33.7 g/dL Normal 32-36 [facility] Comment on above: Performed By: #### L 100.0100, L503.6005, L500.4050 ####[facility] [address] [place], [address] MCV (RBC) [Entitic vol] 90.3 fL Normal 81-99 [facility] Comment on above: Performed By: #### L 100.0100, L503.6005, L500.4050 ####[facility] [address] [place], [address] Monocytes/100 WBC (Bld) 7.5 % Normal 0-10 [facility] Comment on above: Performed By: #### L 100.0100, L503.6005, L500.4050 ####[facility] [address] [place], [address] Neutrophils/100 WBC (Bld) 74.8 % High 47-70 [facility] Comment on above: Performed By: #### L 100.0100, L503.6005, L500.4050 ####[facility] [address] [place], [address] Nucleated RBC (Bld) [#/Vol] 0 10*3/uL Normal 0-5 [facility] Comment on above: Performed By: #### L 100.0100, L503.6005, L500.4050 ####[facility] [address] [place], [address] Platelet mean volume (Bld) [Entitic vol] 9.5 fL Normal 6.2-12.0 [facility] Comment on above: Performed By: #### L 100.0100, L503.6005, L500.4050 ####[facility] [address] [place], [address] Platelets (Bld) [#/Vol] 232 10*3/uL Normal 150-450 [facility] Comment on above: Performed By: #### L 100.0100, L503.6005, L500.4050 ####[facility] [address] [place], [address] RBC (Bld) [#/Vol] 4.24 10*6/uL Normal 4.2-5.4 [facility] Comment on above: Performed By: #### L 100.0100, L503.6005, L500.4050 ####[facility] [address] [place], [address] RDW SD 43.2 fl Normal 35.1-43.9 [facility] Comment on above: Performed By: #### L 100.0100, L503.6005, L500.4050 ####[facility] [address] [place], [address] WBC (Bld) [#/Vol] 9.3 10*3/uL Normal 4.4-11.0 [facility] Comment on above: Performed By: #### L 100.0100, L503.6005, L500.4050 ####[facility] [address] [place], [address] Absolute Lymph 1.35 X10 3/uL Normal 0.83-4.51 [facility] Comment on above: Performed By: #### L 500.4050, L501.2450, L100.0100 #### [facility] [address] [place], [address] Absolute Neut 8.2 X10 3/uL High 2.0-7.7 [facility] Comment on above: Performed By: #### L 500.4050, L501.2450, L100.0100 #### [facility] [address] [place], [address] Basophils/100 WBC (Bld) 0.2 % Normal 0-1 [facility] Comment on above: Performed By: #### L 500.4050, L501.2450, L100.0100 #### [facility] [address] [place], [address] Eosinophils/100 WBC (Bld) 0.1 % Normal 0-5 [facility] Comment on above: Performed By: #### L 500.4050, L501.2450, L100.0100 #### [facility] [address] [place], [address] Erythrocyte distribution width (RBC) [Ratio] 13.1 % Normal 11.6-14.6 [facility] Comment on above: Performed By: #### L 500.4050, L501.2450, L100.0100 #### [facility] [address] [place], [address] Hematocrit (Bld) [Volume fraction] 40.5 % Normal 37-47 [facility] Comment on above: Performed By: #### L 500.4050, L501.2450, L100.0100 #### [facility] [address] [place], [address] Hemoglobin (Bld) [Mass/Vol] 13.7 g/dL Normal 12.0-15.0 [facility] Comment on above: Performed By: #### L 500.4050, L501.2450, L100.0100 #### [facility] [address] [place], [address] IG% 0.500 Normal 0.0-0.9 [facility] Comment on above: Result Comment: IG% - Immature Granulocytes (promyelocytes, myelocytes and metamyelocytes) > 1% indicates that a LEFT SHIFT is Present. Performed By: #### L 500.4050, L501.2450, L100.0100 #### [facility] [address] [place], [address] Lymphocytes/100 WBC (Bld) 13.2 % Low 19-41 [facility] Comment on above: Performed By: #### L 500.4050, L501.2450, L100.0100 #### [facility] [address] [place], [address] MCH (RBC) [Entitic mass] 30.5 pg Normal 27.0-32.0 [facility] Comment on above: Performed By: #### L 500.4050, L501.2450, L100.0100 #### [facility] [address] [place], [address] MCHC (RBC) [Mass/Vol] 33.8 g/dL Normal 32-36 [facility] Comment on above: Performed By: #### L 500.4050, L501.2450, L100.0100 #### [facility] [address] [place], [address] MCV (RBC) [Entitic vol] 90.2 fL Normal 81-99 [facility] Comment on above: Performed By: #### L 500.4050, L501.2450, L100.0100 #### [facility] [address] [place], [address] Monocytes/100 WBC (Bld) 6.3 % Normal 0-10 [facility] Comment on above: Performed By: #### L 500.4050, L501.2450, L100.0100 #### [facility] [address] [place], [address] Neutrophils/100 WBC (Bld) 79.7 % High 47-70 [facility] Comment on above: Performed By: #### L 500.4050, L501.2450, L100.0100 #### [facility] [address] [place], [address] Nucleated RBC (Bld) [#/Vol] 0 10*3/uL Normal 0-5 [facility] Comment on above: Performed By: #### L 500.4050, L501.2450, L100.0100 #### [facility] [address] [place], [address] Platelet mean volume (Bld) [Entitic vol] 10.0 fL Normal 6.2-12.0 [facility] Comment on above: Performed By: #### L 500.4050, L501.2450, L100.0100 #### [facility] [address] [place], [address] Platelets (Bld) [#/Vol] 260 10*3/uL Normal 150-450 [facility] Comment on above: Performed By: #### L 500.4050, L501.2450, L100.0100 #### [facility] [address] [place], [address] RBC (Bld) [#/Vol] 4.49 10*6/uL Normal 4.2-5.4 [facility] Comment on above: Performed By: #### L 500.4050, L501.2450, L100.0100 #### [facility] [address] [place], [address] RDW SD 43.4 fl Normal 35.1-43.9 [facility] Comment on above: Performed By: #### L 500.4050, L501.2450, L100.0100 #### [facility] [address] [place], [address] WBC (Bld) [#/Vol] 10.3 10*3/uL Normal 4.4-11.0 [facility] Comment on above: Performed By: #### L 500.4050, L501.2450, L100.0100 #### [facility] [address] [place], [address] Comprehensive Metabolic Prof ilon 08-03-2024 Albumin [Mass/Vol] 4.2 g/dL Normal 3.4-4.8 [facility] Comment on above: Performed By: #### L 100.0100, L503.6005, L500.4050 ####[facility] [address] [place], [address] Albumin/Globulin [Mass ratio] 1.4 {ratio} Normal 0.9-2.4 [facility] Comment on above: Performed By: #### L 100.0100, L503.6005, L500.4050 ####[facility] [address] [place], [address] ALK PHOS 66 U/L Normal 35-104 [facility] Comment on above: Performed By: #### L 100.0100, L503.6005, L500.4050 ####[facility] [address] [place], [address] ALT [Catalytic activity/Vol] 17 U/L Normal <=34 [facility] Comment on above: Performed By: #### L 100.0100, L503.6005, L500.4050 ####[facility] [address] [place], [address] AST [Catalytic activity/Vol] 34 U/L High <=31 [facility] Comment on above: Performed By: #### L 100.0100, L503.6005, L500.4050 ####[facility] [address] [place], [address] Bilirubin [Mass/Vol] 0.77 mg/dL Normal 0.00-1.30 [facility] Comment on above: Performed By: #### L 100.0100, L503.6005, L500.4050 ####[facility] [address] [place], [address] BUN/CRE 18.6 RATIO Normal 10-20 [facility] Comment on above: Performed By: #### L 100.0100, L503.6005, L500.4050 ####[facility] [address] [place], [address] Calcium [Mass/Vol] 10.6 mg/dL Normal 7.6-11.0 [facility] Comment on above: Performed By: #### L 100.0100, L503.6005, L500.4050 ####[facility] [address] [place], [address] Chloride [Moles/Vol] 89 mmol/L Low 98-108 [facility] Comment on above: Performed By: #### L 100.0100, L503.6005, L500.4050 ####[facility] [address] [place], [address] CO2 [Moles/Vol] 26.7 mmol/L Normal 21.0-32.0 [facility] Comment on above: Performed By: #### L 100.0100, L503.6005, L500.4050 ####[facility] [address] [place], [address] Creatinine [Mass/Vol] 1.55 mg/dL High 0.70-1.20 [facility] Comment on above: Performed By: #### L 100.0100, L503.6005, L500.4050 ####[facility] [address] [place], [address] ECRCL 21.75 ml/min Low 50-250 [facility] Comment on above: Performed By: #### L 100.0100, L503.6005, L500.4050 ####[facility] [address] [place], [address] GAP 14 Normal 5-15 [facility] Comment on above: Performed By: #### L 100.0100, L503.6005, L500.4050 ####[facility] [address] [place], [address] GFR/1.73 sq M.predicted among non-blacks MDRD (S/P/Bld) [Vol rate/Area] 33 mL/min/{1.73_m2} Low >60 [facility] Comment on above: Result Comment: mL/m in/1.73m2 CKD-EPI Creatinine Equation (2020) Performed By: #### L 100.0100, L503.6005, L500.4050 ####[facility] [address] [place], [address] Globulin (S) [Mass/Vol] 3.1 g/dL Normal 2.2-4.2 [facility] Comment on above: Performed By: #### L 100.0100, L503.6005, L500.4050 ####[facility] [address] [place], [address] Glucose [Mass/Vol] 111 mg/dL High 70-99 [facility] Comment on above: Performed By: #### L 100.0100, L503.6005, L500.4050 ####[facility] [address] [place], [address] Potassium [Moles/Vol] 4.3 mmol/L Normal 3.3-5.1 [facility] Comment on above: Performed By: #### L 100.0100, L503.6005, L500.4050 ####[facility] [address] [place], [address] Sodium [Moles/Vol] 130 mmol/L Low 133-145 [facility] Comment on above: Performed By: #### L 100.0100, L503.6005, L500.4050 ####[facility] [address] [place], [address] T PROT 7.2 g/dL Normal 5.9-8.4 [facility] Comment on above: Performed By: #### L 100.0100, L503.6005, L500.4050 ####[facility] [address] [place], [address] Urea nitrogen [Mass/Vol] 29 mg/dL High 4-19 [facility] Comment on above: Performed By: #### L 100.0100, L503.6005, L500.4050 ####[facility] [address] [place], [address] Albumin [Mass/Vol] 4.7 g/dL Normal 3.4-4.8 [facility] Comment on above: Performed By: #### L 500.4050, L501.2450, L100.0100 #### [facility] [address] [place], [address] Albumin/Globulin [Mass ratio] 1.4 {ratio} Normal 0.9-2.4 [facility] Comment on above: Performed By: #### L 500.4050, L501.2450, L100.0100 #### [facility] [address] [place], [address] ALK PHOS 72 U/L Normal 35-104 [facility] Comment on above: Performed By: #### L 500.4050, L501.2450, L100.0100 #### [facility] [address] [place], [address] ALT [Catalytic activity/Vol] 22 U/L Normal <=34 [facility] Comment on above: Performed By: #### L 500.4050, L501.2450, L100.0100 #### [facility] [address] [place], [address] AST [Catalytic activity/Vol] 41 U/L High <=31 [facility] Comment on above: Result Comment: Hemo lysis present, Results??could be affected. ?? Performed By: #### L 500.4050, L501.2450, L100.0100 #### [facility] [address] [place], [address] Bilirubin [Mass/Vol] 0.85 mg/dL Normal 0.00-1.30 [facility] Comment on above: Performed By: #### L 500.4050, L501.2450, L100.0100 #### [facility] [address] [place], [address] BUN/CRE 16.2 RATIO Normal 10-20 [facility] Comment on above: Performed By: #### L 500.4050, L501.2450, L100.0100 #### [facility] [address] [place], [address] Calcium [Mass/Vol] 11.2 mg/dL High 7.6-11.0 [facility] Comment on above: Performed By: #### L 500.4050, L501.2450, L100.0100 #### [facility] [address] [place], [address] Chloride [Moles/Vol] 90 mmol/L Low 98-108 [facility] Comment on above: Performed By: #### L 500.4050, L501.2450, L100.0100 #### [facility] [address] [place], [address] CO2 [Moles/Vol] 27.5 mmol/L Normal 21.0-32.0 [facility] Comment on above: Performed By: #### L 500.4050, L501.2450, L100.0100 #### [facility] [address] [place], [address] Creatinine [Mass/Vol] 1.70 mg/dL High 0.70-1.20 [facility] Comment on above: Performed By: #### L 500.4050, L501.2450, L100.0100 #### [facility] [address] [place], [address] ECRCL 19.83 ml/min Low 50-250 [facility] Comment on above: Performed By: #### L 500.4050, L501.2450, L100.0100 #### [facility] [address] [place], [address] GAP 14 Normal 5-15 [facility] Comment on above: Performed By: #### L 500.4050, L501.2450, L100.0100 #### [facility] [address] [place], [address] GFR/1.73 sq M.predicted among non-blacks MDRD (S/P/Bld) [Vol rate/Area] 30 mL/min/{1.73_m2} Low >60 [facility] Comment on above: Result Comment: mL/m in/1.73m2 CKD-EPI Creatinine Equation (2020) Performed By: #### L 500.4050, L501.2450, L100.0100 #### [facility] [address] [place], [address] Globulin (S) [Mass/Vol] 3.4 g/dL Normal 2.2-4.2 [facility] Comment on above: Performed By: #### L 500.4050, L501.2450, L100.0100 #### [facility] [address] [place], [address] Glucose [Mass/Vol] 118 mg/dL High 70-99 [facility] Comment on above: Performed By: #### L 500.4050, L501.2450, L100.0100 #### [facility] [address] [place], [address] Potassium [Moles/Vol] 4.7 mmol/L Normal 3.3-5.1 [facility] Comment on above: Result Comment: Hemo lysis present, Results??could be affected. ?? Performed By: #### L 500.4050, L501.2450, L100.0100 #### [facility] [address] [place], [address] Sodium [Moles/Vol] 132 mmol/L Low 133-145 [facility] Comment on above: Performed By: #### L 500.4050, L501.2450, L100.0100 #### [facility] [address] [place], [address] T PROT 8.1 g/dL Normal 5.9-8.4 [facility] Comment on above: Performed By: #### L 500.4050, L501.2450, L100.0100 #### [facility] [address] [place], [address] Urea nitrogen [Mass/Vol] 28 mg/dL High 4-19 [facility] Comment on above: Performed By: #### L 500.4050, L501.2450, L100.0100 #### [facility] [address] [place], [address] Emergency Department Summary on 08-03-2024 Emergency Department Summary [facility] Medical Records Department [address] [place] [address] Emergency Department Summary 08/03/24 MR#: [id number] Acct: [id number] Name: MARY LI Rep #: [id number] : 1940 83 From: Marino Burgos MD [...] similar symptoms: Yes Recent Illness/Hospitalization: No PFSH [facility] Medical History (Updated 08/03/24 @ 20:18 by [...] content not included)... Normal [facility] H AND P Exam - Hospitaliston 08-03-2024 H&P Exam - Hospitalist [facility] Medical Records Department [address] [place] [address] H P Exam - Hospitalist 08/03/242014 MR#: [id number] Acct: [id number] Name: MARY LI Rep #: [id number] : 1940 83 From: Tierra Humphreys MD [...] appeared stage II who presents to the [facility] ED on 08/03/24 with history of [...] Harris. In the ED NGT being placed. [facility] Medical History Hx of small bowel obstruction [...] content not included)... Normal [facility] Lactic Acidon 08-03-2024 Lactate [Moles/Vol] 1.5 mmol/L Normal 0.0-2.0 [facility] Comment on above: Order Comment: Y Performed By: #### L 100.0100, L503.6005, L500.4050 ####[facility] [address] [place], [address] Lipaseon 08-03-2024 Lipase [Catalytic activity/Vol] 53 U/L Normal 13-75 [facility] Comment on above: Result Comment: Plea se note: LIPASE revised reference range effective 22. New Lipase methodology. Expected to produce lower values than the previous assay method. NEW Reference Range: 13 - 75 U/L Performed By: #### L 500.4050, L501.2450, L100.0100 #### [facility] [address] [place], [address] Urinalysis, Completeon 08-03 BACTERIA Normal None Seen [facility] Comment on above: Order Comment: CLEAN CATCH Result Comment: DUPL ICATE ORDER. SEE U40 FOR RESULTS Performed By: #### L 400.0001 #### [facility] [address] [place], [address] BILIRUBIN URINE Normal Negative [facility] Comment on above: Order Comment: CLEAN CATCH Result Comment: DUPL ICATE ORDER. SEE U40 FOR RESULTS Performed By: #### L 400.0001 #### [facility] [address] [place], [address] Clarity (U) Normal Clear [facility] Comment on above: Order Comment: CLEAN CATCH Result Comment: DUPL ICATE ORDER. SEE U40 FOR RESULTS Performed By: #### L 400.0001 #### [facility] [address] [place], [address] Color (U) Normal Yellow [facility] Comment on above: Order Comment: CLEAN CATCH Result Comment: DUPL ICATE ORDER. SEE U40 FOR RESULTS Performed By: #### L 400.0001 #### [facility] [address] [place], [address] EPI,SQUAMOUS Normal 5-10 [facility] Comment on above: Order Comment: CLEAN CATCH Result Comment: DUPL ICATE ORDER. SEE U40 FOR RESULTS Performed By: #### L 400.0001 #### [facility] [address] [place], [address] GLUCOSE, UR Normal Normal [facility] Comment on above: Order Comment: CLEAN CATCH Result Comment: DUPL ICATE ORDER. SEE U40 FOR RESULTS Performed By: #### L 400.0001 #### [facility] [address] [place], [address] KETONE UR Normal Negative [facility] Comment on above: Order Comment: CLEAN CATCH Result Comment: DUPL ICATE ORDER. SEE U40 FOR RESULTS Performed By: #### L 400.0001 #### [facility] [address] [place], [address] LEUK ESTERASE Normal Negative [facility] Comment on above: Order Comment: CLEAN CATCH Result Comment: DUPL ICATE ORDER. SEE U40 FOR RESULTS Performed By: #### L 400.0001 #### [facility] [address] [place], [address] Mucus Ql (Urine sed) Normal [facility] Comment on above: Order Comment: CLEAN CATCH Result Comment: DUPL ICATE ORDER. SEE U40 FOR RESULTS Performed By: #### L 400.0001 #### [facility] [address] [place], [address] Nitrite Ql (U) Normal Negative [facility] Comment on above: Order Comment: CLEAN CATCH Result Comment: DUPL ICATE ORDER. SEE U40 FOR RESULTS Performed By: #### L 400.0001 #### [facility] [address] [place], [address] OCCULT BLOOD-UR Normal Negative [facility] Comment on above: Order Comment: CLEAN CATCH Result Comment: DUPL ICATE ORDER. SEE U40 FOR RESULTS Performed By: #### L 400.0001 #### [facility] [address] [place], [address] pH UR Normal 5.0 - 8.0 [facility] Comment on above: Order Comment: CLEAN CATCH Result Comment: DUPL ICATE ORDER. SEE U40 FOR RESULTS Performed By: #### L 400.0001 #### [facility] [address] [place], [address] PROT DIPSTX Normal Negative [facility] Comment on above: Order Comment: CLEAN CATCH Result Comment: DUPL ICATE ORDER. SEE U40 FOR RESULTS Performed By: #### L 400.0001 #### [facility] [address] [place], [address] RBC Normal 0-5 [facility] Comment on above: Order Comment: CLEAN CATCH Result Comment: DUPL ICATE ORDER. SEE U40 FOR RESULTS Performed By: #### L 400.0001 #### [facility] [address] [place], [address] SP.GR. DIPSTX Normal 1.002-1.03 0 [facility] Comment on above: Order Comment: CLEAN CATCH Result Comment: DUPL ICATE ORDER. SEE U40 FOR RESULTS Performed By: #### L 400.0001 #### [facility] [address] [place], [address] UR Preservative Normal [facility] Comment on above: Order Comment: CLEAN CATCH Result Comment: DUPL ICATE ORDER. SEE U40 FOR RESULTS Performed By: #### L 400.0001 #### [facility] [address] [place], [address] UROBILI Normal Normal [facility] Comment on above: Order Comment: CLEAN CATCH Result Comment: DUPL ICATE ORDER. SEE U40 FOR RESULTS Performed By: #### L 400.0001 #### [facility] [address] [place], [address] WBC Normal 0-5 [facility] Comment on above: Order Comment: CLEAN CATCH Result Comment: DUPL ICATE ORDER. SEE U40 FOR RESULTS Performed By: #### L 400.0001 #### [facility] [address] [place], [address] BACTERIA 4+ /hpf Normal None Seen [facility] Comment on above: Order Comment: CLEAN CATCH Performed By: #### L 400.0001 ####[facility] [address] [place], [address] WBC >100 SEEN Normal 0-5 [facility] Comment on above: Order Comment: CLEAN CATCH Result Comment: Micr oscopic field is filled. Other elements may be obscured. Performed By: #### L 400.0001 ####[facility] [address] [place], [address] EPI,SQUAMOUS 0 SEEN Normal 5-10 [facility] Comment on above: Order Comment: CLEAN CATCH Performed By: #### L 400.0001 ####[facility] [address] [place], [address] Mucus Ql (Urine sed) 0 SEEN Normal [facility] Comment on above: Order Comment: CLEAN CATCH Performed By: #### L 400.0001 ####[facility] [address] [place], [address] RBC 0 SEEN Normal 0-5 [facility] Comment on above: Order Comment: CLEAN CATCH Performed By: #### L 400.0001 ####[facility] [address] [place], [address] 36on 05-14-2024 36 Last ov- 02/26/24 Next ov-05/27/24 Normal [facility] Office Visiton 02-26-2024 Follow-up visit [id number] Mary Li 1940 F Date Provider Department Center 02/26/2024 [id number] [place] [facility] SB YUNIOR None No family history on file Level of Service:36883 HI OFFICE/OUTPATIENT NEW MODERATE MDM 45 MINUTES Reason for Visit and Comments: New Patient [542] Numbness [75] Normal [facility] Progress Noteon 02-26-2024 Progress Note [facility] [address] [facility] [address] Dept: [phone] Dept Loc: [phone] Tadeo Napoles MD Thank you for your [...] Resource Strain: Low Risk (06/17/2023) Received from [facility] Overall Financial Resource Strain (CARDIA) Difficulty of Paying Living Expenses: Not hard at all Food Insecurity: No Food Insecurity (06/17/2023) Received from [facility] Hunger Vital Sign Worried About Running Out of Food in the Last Year: Never true Ran Out of Food in the Last Year: Never true Transportation Needs: No Transportation Needs (06/17/2023) Received from [facility] PRAPARE - Transportation Lack of Transportation (Medical): [...] Appearance: Patient (more content not included)... Normal [facility] Basic metabolic 2000 panelon 06-19-2023 Anion gap [Moles/Vol] 9 mmol/L Normal 9-18 [facility] Comment on above: Order Comment: Speci men Type: BLOOD SPECIMENOrdering Facility: [facility] Address: [address] [place] [address] Performed By: #### 2 4321-2 ####[facility]ORATORYCLIA [id number] [place] [address] [place] Calcium [Mass/Vol] 8.8 mg/dL Normal 8.5-10.2 [facility] Comment on above: Order Comment: Speci men Type: BLOOD SPECIMENOrdering Facility: [facility] Address: [address] [place] [address] Performed By: #### 2 4321-2 ####[facility] LABORATORYCLIA [id number] [place] [address] [place] Chloride [Moles/Vol] 104 mmol/L Normal 97-105 [facility] Comment on above: Order Comment: Speci men Type: BLOOD SPECIMENOrdering Facility: [facility] Address: [address] [place] [address] Performed By: #### 2 4321-2 ####[facility]ORATORYCLIA [id number] [place] [address] [place] CO2 [Moles/Vol] 26 mmol/L Normal 22-30 [facility] Comment on above: Order Comment: Speci men Type: BLOOD SPECIMENOrdering Facility: [facility] Address: [address] [place] [address] Performed By: #### 2 4321-2 ####[facility]ORATORYCLIA [id number] [address] STATES OF [facility] Creatinine [Mass/Vol] 0.74 mg/dL Normal 0.58-0.96 [facility] Comment on above: Order Comment: Speci men Type: BLOOD SPECIMENOrdering Facility: [facility] Address: [address] [place] [address] Performed By: #### 2 4321-2 ####[facility]ORATORYCLIA [id number] [address] Creatinine and Glomerular filtration rate.predicted panel (S/P/Bld) 81 mL/min/1.73m??? Normal >=60 [facility] Comment on above: Order Comment: Wilman[place] men Type: BLOOD SPECIMENOrdering Facility: [facility] Address: [address] [place] [address] Result Comment: Adalgisa mated Glomerular Filtration Rate [...] Performed By: #### 2 4321-2 ####[facility]ORATORYCLIA [id number] [address] [place] Glucose [Mass/Vol] 97 mg/dL Normal 74-99 [facility] Comment on above: Order Comment: Speci men Type: BLOOD SPECIMENOrdering Facility: [facility] Address: [address] [place] [address] Result Comment: The [place] [employer] (ADA) provides guidance for cutoff [...] Standards of Medical Care in Diabetes 2016, [place] [employer]. Diabetes Care. 2016.39(Suppl 1). Performed By: #### 2 4321-2 ####[facility]ORATORYCLIA [id number] [place] [address] [place] Potassium [Moles/Vol] 4.0 mmol/L Normal 3.7-5.1 [facility] Comment on above: Order Comment: Wilmani men Type: BLOOD SPECIMENOrdering Facility: [facility] Address: [address] [place] [address] Performed By: #### 2 4321-2 ####[facility]ORATORYCLIA [id number] [place] [address] [place] Sodium [Moles/Vol] 139 mmol/L Normal 136-144 [facility] Comment on above: Order Comment: Speci men Type: BLOOD SPECIMENOrdering Facility: [facility] Address: [address] [place] [address] Performed By: #### 2 1-2 ####[facility]ORATORYCLIA [id number] [place] [address] [place] Urea nitrogen [Mass/Vol] 9 mg/dL Normal 7-21 [facility] Comment on above: Order Comment: Wilmani men Type: BLOOD SPECIMENOrdering Facility: [facility] Address: [address] [place] [address] Performed By: #### 2 4321-2 ####[facility] LABORATORYCLIA [id number] [place] [address] [facility] [place] CASE MANAGEMon 06-19-2023 CASE MANAGEM HNO ID: [id number] Author: EVONNE CHANDLER RN Service: ? Author [...] Care Physician Name/Phone: Andria Steve, do - [phone] Additional Information: Orders received for patient to discharge home. No skilled needs noted. Patient agreeable to discharge plan. Family to transport home. Bedside RN updated. Discharge Time Out Yes Bedside RN present No Does pt have transport home? Yes Did pt use bedside pharmacy? No SIGNATURE: Evonne Chandler RN PATIENT NAME: Mary Laura Li DATE: June 19, 2023 TIME: 11:30 AM CONTACT #: [phone] [facility] CASE MANAGEM HNO ID: [id number] Author: EVONNE CHANDLER RN Service: ? Author [...] 19, 2023 TIME: 11:28 AM PAGER/CONTACT #: [phone] [facility] CNDSon 06-19-2023 CNDS HNO ID: [id number] Author: TYRELL FINK MD Service: General Surgery Author Type: Physician Acetylene Cylinder Packing Mixer Type: Discharge Summary Filed: 06/22/2023 15:38 Note [...] PROBLEMS/DIAGNOSIS: Principal Problem: SBO (small bowel obstruction) ([facility]) Resolved Problems: * No resolved hospital problems. [...] When: In 2 weeks Federico Jade MD [phone] [address] [facility] [address] PCP Requested Referral Additional Provider to Provider Information: Small bowel obstruction; conservative management Transitions of Care Critical Issues: none LABS AND PROCEDURES PENDING AT DISCHARGE: No pending results. FOLLOW-UP APPOINTMENTS ALREADY SCHEDULED WITH A [facility] PROVIDER: Future Appointments Date Time Provider Department Center 07/08/2023 1:00 PM Federico Jade MD [facility] ALLERGIES Allergen Reactions Codeine Mental Status Change [...] every 6 hours as needed. vits A-C-E-B kmsadp-jsd-qrxubq 5,000 unit- 120 mg-60 unit Tber ZOFRAN [...] 30-day readmission is (more content not included)... [facility] NURSING PROGon 06-19-2023 NURSING PROG HNO ID: [id number] Author: TC VACA, LUCY Service: Nursing Author Type: Registered Nurse Type: Nursing Progress Note Filed: 06/19/2023 00:16 Note Text: Patient IV site was tender and had swelling, needed to be removed. I advised the patient a new IV would needed to be placed and patient stated she did not want one. Page was placed to reception interviewer APRNs. Mellisa Espinoza returned the page and was ok with removing IV since patient has been tolerating full liquid diet. She did advise a new IV may need to be placed tomorrow pending patient's clinical course. [facility] ALLIED HEALTHon 06-18-2023 ALLIED HEALTH HNO ID: [id number] Author: MARANDA MOTA RT(Monae) Service: ? Author Type: Oven Stripper Type: Allied Health Filed: 06/18/2023 09:36 Note [...] PATIENT PRESENTS WITH AN IMPLANTABLE OR ATTACHED PINION POLISHER: No RADIOLOGY DEPARTMENT: General X-ray: Exam(s) Completed: Abdomen X-Ray: Abdomen with Upright PERIPHERAL IV DATA: Not applicable SIGNED BY: Maranda RT Thierry(R) June 18, 2023 9:35 AM [facility] CONSULT PROGon 06-18-2023 CONSULT PROG HNO ID: [id number] Author: TYRELL FINK MD Service: General Surgery [...] mg ORAL AT BEDTIME PRN phenol 1 Gladwin (CHLORASEPTIC) 1 Gladwin MUCOUS MEMBRANE (TOPICAL MOUTH AND THROAT) q [...] June 18, 2023 TIME: 12:45 PM PAGER: [facility] XR ABD 2V SUPINE W UPR/DECUB [...] a fecal impaction 2. No free air Lab Nurse: BLOSSOM Transcribe Date/Time: Jun 18 2023 10:05A Dictated by : JOYCE MARTINES DO This examination was interpreted and the report reviewed and electronically signed by: JOYCE MARTINES DO on Jun 18 2023 11:34AM EST [id number] [facility] ALLIED HEALTHon 06-17-2023 ALLIED HEALTH HNO ID: [id number] Author: TRINITY GALDAMEZ RT(R) Service: Radiology Author [...] PATIENT PRESENTS WITH AN IMPLANTABLE OR ATTACHED PINION POLISHER: No RADIOLOGY DEPARTMENT: General X-ray: Exam(s) Completed: Abdomen X-Ray: Abdomen PERIPHERAL IV DATA: Not applicable SIGNED BY: RT Mikey(R) June 17, 2023 8:45 AM [facility] Basic metabolic 2000 panelon 06-17-2023 Anion gap [Moles/Vol] 7 mmol/L Low 9-18 [facility] Comment on above: Order Comment: Speci men Type: BLOOD SPECIMENOrdering Facility: [facility] Address: [address] [place] [address] Performed By: #### 2 4321-2 ####IR[facility] LABORATORYCLIA [id number] [place] [address] [place] Calcium [Mass/Vol] 8.6 mg/dL Normal 8.5-10.2 [facility] Comment on above: Order Comment: Speci men Type: BLOOD SPECIMENOrdering Facility: [facility] Address: [address] [place] [address] Performed By: #### 2 4321-2 ####IRMA LABORATORYCLIA [id number] [place] [address] [place] Chloride [Moles/Vol] 97 mmol/L Normal 97-105 [facility] Comment on above: Order Comment: Speci men Type: BLOOD SPECIMENOrdering Facility: [facility] Address: [address] [place] [address] Performed By: #### 2 4321-2 ####[facility] LABORATORYCLIA [id number] [place] [address] [place] CO2 [Moles/Vol] 28 mmol/L Normal 22-30 [facility] Comment on above: Order Comment: Speci men Type: BLOOD SPECIMENOrdering Facility: [facility] Address: [address] [place] [address] Performed By: #### 2 4321-2 ####[facility] LABORATORYCLIA [id number] [address] [place] Creatinine [Mass/Vol] 0.86 mg/dL Normal 0.58-0.96 [facility] Comment on above: Order Comment: Wilmani men Type: BLOOD SPECIMENOrdering Facility: [facility] Address: [address] [place] [address] Performed By: #### 2 4321-2 ####[facility] LABORATORYCLIA [id number] [address] Creatinine and Glomerular filtration rate.predicted panel (S/P/Bld) 68 mL/min/1.73m??? Normal >=60 [facility] Comment on above: Order Comment: Wilmani men Type: BLOOD SPECIMENOrdering Facility: [facility] Address: [address] [place] [address] Result Comment: Adalgisa mated Glomerular Filtration Rate [...] Performed By: #### 2 4321-2 ####[facility] LABORATORYCLIA [id number] [address] [place] Glucose [Mass/Vol] 116 mg/dL High 74-99 [facility] Comment on above: Order Comment: Speci men Type: BLOOD SPECIMENOrdering Facility: [facility] Address: [address] [place] [address] Result Comment: The [place] Diabetes Association (ADA) provides guidance for cutoff [...] Standards of Medical Care in Diabetes 2016, [place] [employer]. Diabetes Care. 2016.39(Suppl 1). Performed By: #### 2 4321-2 ####[facility] LABORATORYCLIA [id number] [place] [address] [place] Potassium [Moles/Vol] 4.0 mmol/L Normal 3.7-5.1 [facility] Comment on above: Order Comment: Speci men Type: BLOOD SPECIMENOrdering Facility: [facility] Address: [address] [place] [address] Performed By: #### 2 4321-2 ####[facility] LABORATORYCLIA [id number] [address] [place] [facility] Sodium [Moles/Vol] 132 mmol/L Low 136-144 [facility] Comment on above: Order Comment: Speci men Type: BLOOD SPECIMENOrdering Facility: [facility] Address: [address] [place] [address] Performed By: #### 2 4321-2 ####[facility] LABORATORYCLIA [id number] [address] [place] Urea nitrogen [Mass/Vol] 15 mg/dL Normal 7-21 [facility] Comment on above: Order Comment: Speci men Type: BLOOD SPECIMENOrdering Facility: [facility] Address: [address] [place] [address] Performed By: #### 2 4321-2 ####[facility] LABORATORYCLIA [id number] [address] [place] CBC W Auto Differential pane l (Bld)on 06-17-2023 Basophils (Bld) [#/Vol] 10*3/uL Normal <0.11 [facility] Comment on above: Order Comment: Speci men Type: BLOOD SPECIMENOrdering Facility: [facility] Address: [address] [place] [address] Performed By: #### 5 7021-8 ####[facility] LABORATORYCLIA [id number] [address] [place] Basophils/100 WBC (Bld) 0.2 % Normal [facility] Comment on above: Order Comment: Speci men Type: BLOOD SPECIMENOrdering Facility: [facility] Address: [address] [place] [address] Performed By: #### 5 7021-8 ####[facility] LABORATORYCLIA [id number] [address] Differential cell count method Nom (Bld) Auto Normal [facility] Comment on above: Order Comment: Speci men Type: BLOOD SPECIMENOrdering Facility: [facility] Address: [address] [place] [address] Performed By: #### 5 7021-8 ####[facility] LABORATORYCLIA [id number] [address] [place] Eosinophils (Bld) [#/Vol] 0.10 10*3/uL Normal <0.46 [facility] Comment on above: Order Comment: Speci men Type: BLOOD SPECIMENOrdering Facility: [facility] Address: [address] [place] [address] Performed By: #### 5 7021-8 ####[facility] LABORATORYCLIA [id number] [address] Eosinophils/100 WBC (Bld) 1.6 % Normal [facility] Comment on above: Order Comment: Speci men Type: BLOOD SPECIMENOrdering Facility: [facility] Address: [address] [place] [address] Performed By: #### 5 7021-8 ####[facility] LABORATORYCLIA [id number] [address] [place] Erythrocyte distribution width (RBC) [Ratio] 12.9 % Normal 11.5-15.0 [facility] Comment on above: Order Comment: Speci men Type: BLOOD SPECIMENOrdering Facility: [facility] Address: [address] [place] [address] Performed By: #### 5 7021-8 ####[facility] LABORATORYCLIA [id number] [address] [place] Hematocrit (Bld) [Volume fraction] 37.3 % Normal 36.0-46.0 [facility] Comment on above: Order Comment: Speci men Type: BLOOD SPECIMENOrdering Facility: [facility] Address: [address] [place] [address] Performed By: #### 5 7021-8 ####[facility] LABORATORYCLIA [id number] [address] [place] Hemoglobin (Bld) [Mass/Vol] 12.1 g/dL Normal 11.5-15.5 [facility] Comment on above: Order Comment: Speci men Type: BLOOD SPECIMENOrdering Facility: [facility] Address: [address] [place] [address] Performed By: #### 5 7021-8 ####[facility] LABORATORYCLIA [id number] [address] [place] Immature granulocytes (Bld) [#/Vol] 10*3/uL Normal <0.10 [facility] Comment on above: Order Comment: Speci men Type: BLOOD SPECIMENOrdering Facility: [facility] Address: [address] [place] [address] Performed By: #### 5 7021-8 ####[facility] LABORATORYCLIA [id number] [address] [place] Immature granulocytes/100 WBC (Bld) 0.2 % Normal [facility] Comment on above: Order Comment: Speci men Type: BLOOD SPECIMENOrdering Facility: [facility] Address: [address] [place] [address] Performed By: #### 5 7021-8 ####[facility] LABORATORYCLIA [id number] [address] Lymphocytes (Bld) [#/Vol] 1.25 10*3/uL Normal 1.00-4.00 [facility] Comment on above: Order Comment: Speci men Type: BLOOD SPECIMENOrdering Facility: [facility] Address: [address] [place] [address] Performed By: #### 5 7021-8 ####[facility] LABORATORYCLIA [id number] [address] Lymphocytes/100 WBC (Bld) 19.6 % Normal [facility] Comment on above: Order Comment: Speci men Type: BLOOD SPECIMENOrdering Facility: [facility] Address: [address] [place] [address] Performed By: #### 5 7021-8 ####[facility] LABORATORYCLIA [id number] [address] MCH (RBC) [Entitic mass] 29.5 pg Normal 26.0-34.0 [facility] Comment on above: Order Comment: Speci men Type: BLOOD SPECIMENOrdering Facility: [facility] Address: [address] [place] [address] Performed By: #### 5 7021-8 ####HUT[facility] LABORATORYCLIA [id number] [address] MCHC (RBC) [Mass/Vol] 32.4 g/dL Normal 30.5-36.0 [facility] Comment on above: Order Comment: Speci men Type: BLOOD SPECIMENOrdering Facility: [facility] Address: [address] [place] [address] Performed By: #### 5 7021-8 ####H[facility] LABORATORYCLIA [id number] [address] MCV (RBC) [Entitic vol] 91.0 fL Normal 80.0-100.0 [facility] Comment on above: Order Comment: Speci men Type: BLOOD SPECIMENOrdering Facility: [facility] Address: [address] [place] [address] Performed By: #### 5 7021-8 ####HUT[facility] LABORATORYCLIA [id number] [place] [address] [place] Monocytes (Bld) [#/Vol] 0.62 10*3/uL Normal <0.87 [facility] Comment on above: Order Comment: Speci men Type: BLOOD SPECIMENOrdering Facility: [facility] Address: [address] [place] [address] Performed By: #### 5 7021-8 ####HUTCH[facility] LABORATORYCLIA [id number] [address] [place] [facility] Monocytes/100 WBC (Bld) 9.7 % Normal [facility] Comment on above: Order Comment: Speci men Type: BLOOD SPECIMENOrdering Facility: [facility] Address: [address] [place] [address] Performed By: #### 5 7021-8 ####[facility] LABORATORYCLIA [id number] [address] [place] Neutrophils (Bld) [#/Vol] 4.39 10*3/uL Normal 1.45-7.50 [facility] Comment on above: Order Comment: Speci men Type: BLOOD SPECIMENOrdering Facility: [facility] Address: [address] [place] [address] Performed By: #### 5 7021-8 ####[facility] LABORATORYCLIA [id number] [address] Neutrophils/100 WBC (Bld) 68.7 % Normal [facility] Comment on above: Order Comment: Speci men Type: BLOOD SPECIMENOrdering Facility: [facility] Address: [address] [place] [address] Performed By: #### 5 7021-8 ####H[facility] LABORATORYCLIA [id number] [place] [address] [place] Nucleated RBC (Bld) [#/Vol] 10*3/uL Normal <0.01 [facility] Comment on above: Order Comment: Speci men Type: BLOOD SPECIMENOrdering Facility: [facility] Address: [address] [place] [address] Performed By: #### 5 7021-8 ####HUT[facility] LABORATORYCLIA [id number] [place] [address] [place] Nucleated RBC/100 WBC (Bld) [Ratio] 0.0 /100 WBC Normal [facility] Comment on above: Order Comment: Speci men Type: BLOOD SPECIMENOrdering Facility: [facility] Address: [address] [place] [address] Performed By: #### 5 7021-8 ####HUT[facility] LABORATORYCLIA [id number] [place] [address] [place] Platelet mean volume (Bld) [Entitic vol] 9.6 fL Normal 9.0-12.7 [facility] Comment on above: Order Comment: Speci men Type: BLOOD SPECIMENOrdering Facility: [facility] Address: [address] [place] [address] Performed By: #### 5 7021-8 ####[facility] LABORATORYCLIA [id number] [address] [place] Platelets (Bld) [#/Vol] 218 10*3/uL Normal 150-400 [facility] Comment on above: Order Comment: Speci men Type: BLOOD SPECIMENOrdering Facility: [facility] Address: [address] [place] [address] Performed By: #### 5 7021-8 ####[facility] LABORATORYCLIA [id number] [address] [place] RBC (Bld) [#/Vol] 4.10 10*6/uL Normal 3.90-5.20 [facility] Comment on above: Order Comment: Speci men Type: BLOOD SPECIMENOrdering Facility: [facility] Address: [address] [place] [address] Performed By: #### 5 7021-8 ####H[facility] LABORATORYCLIA [id number] [place] [address] [place] WBC (Bld) [#/Vol] 6.38 10*3/uL Normal 3.70-11.00 [facility] Comment on above: Order Comment: Speci men Type: BLOOD SPECIMENOrdering Facility: [facility] Address: [address] [place] [address] Performed By: #### 5 7021-8 ####IRMA LABORATORYCLIA [id number] [place] [address] [place] [facility] NUTRITIONon 06-17-2023 NUTRITION HNO ID: [id number] Author: ERIKA BAZZI RD Service: Nutrition Therapy [...] minutes SIGNATURE: Erika Bazzi RD PATIENT NAME: Mary Li DATE: June 17, 2023 TIME: 9:55 AM [facility] XR ABD 2V SUPINE W UPR/DECUB [...] there is significant fluid within the stomach Lab Nurse: BLOSSOM Transcribe Date/Time: Jun 17 2023 1:41P Dictated by : TADEO HAYNES MD This examination was interpreted and the report reviewed and electronically signed by: TADEO HAYNES MD on Jun 17 2023 1:43PM EST [id number] Normal [facility] HEALTHon 06-16-2023 ALLIED HEALTH HNO ID: [id number] Author: JACEK OLIVARES RT(R) Service: ? Author [...] PATIENT PRESENTS WITH AN IMPLANTABLE OR ATTACHED PINION POLISHER: No RADIOLOGY DEPARTMENT: General X-ray: Exam(s) Completed: Abdomen X-Ray: Abdomen PERIPHERAL IV DATA: Not applicable SIGNED BY: RT Anthony(R) June 16, 2023 3:32 PM Normal [facility] CBC W Auto Differential pane l (Bld)on 06-16-2023 Basophils (Bld) [#/Vol] 10*3/uL Normal <0.11 [facility] Comment on above: Order Comment: Speci men Type: BLOOD SPECIMEN [facility] Address: [address] [place] [address] Performed By: #### 5 7021-8 #### [facility] CLIA [id number] [address] [place] [address] [place] Basophils/100 WBC (Bld) 0.0 % Normal [facility] Comment on above: Order Comment: Speci men Type: BLOOD SPECIMEN [facility]ing [facility]: [facility] Address: [address] [place] [address] Performed By: #### 5 7021-8 #### [facility] CLIA [id number] [address] [place] [address] [place] Differential cell count method Nom (Bld) Auto Normal [facility] Comment on above: Order Comment: Speci men Type: BLOOD SPECIMEN [facility] Address: [address] [place] [address] Performed By: #### 5 7021-8 #### [facility] CLIA [id number] [address] [place] [address] [place] Eosinophils (Bld) [#/Vol] 10*3/uL Normal <0.46 [facility] Comment on above: Order Comment: Speci men Type: BLOOD SPECIMEN [facility]: [facility] Address: [address] [place] [address] Performed By: #### 5 7021-8 #### [facility] CLIA [id number] [address] [place] [id number] [place] Eosinophils/100 WBC (Bld) 0.2 % Normal [facility] Comment on above: Order Comment: Speci men Type: BLOOD SPECIMEN [facility]ing [facility]: [facility] Address: [address] [place] [address] Performed By: #### 5 7021-8 #### [facility] CLIA [id number] [address] [place] [address] [place] Erythrocyte distribution width (RBC) [Ratio] 12.8 % Normal 11.5-15.0 [facility] Comment on above: Order Comment: Speci men Type: BLOOD SPECIMEN [facility]: [facility] Address: [address] [place] [address] Performed By: #### 5 7021-8 #### [facility] CLIA [id number] [address] [place] [address] [facility] [place] Hematocrit (Bld) [Volume fraction] 42.1 % Normal 36.0-46.0 [facility] Comment on above: Order Comment: Speci men Type: BLOOD SPECIMEN [facility]: [facility] Address: [address] [place] [address] Performed By: #### 5 7021-8 #### [facility] CLIA [id number] [address] [place] [address] [place] Hemoglobin (Bld) [Mass/Vol] 13.8 g/dL Normal 11.5-15.5 [facility] Comment on above: Order Comment: Speci men Type: BLOOD SPECIMEN [facility] Address: [address] [place] [address] Performed By: #### 5 7021-8 #### [facility] CLIA [id number] [address] [place] [address] [place] Immature granulocytes (Bld) [#/Vol] 10*3/uL Normal <0.10 [facility] Comment on above: Order Comment: Speci men Type: BLOOD SPECIMEN [facility] Address: [address] [place] [address] Performed By: #### 5 7021-8 #### [facility] CLIA [id number] [address] [place] [address] [place] Immature granulocytes/100 WBC (Bld) 0.1 % Normal [facility] Comment on above: Order Comment: Speci men Type: BLOOD SPECIMEN [facility] Address: [address] [place] [address] Performed By: #### 5 7021-8 #### [facility] CLIA [id number] [address] [place] [address] [place] Lymphocytes (Bld) [#/Vol] 0.92 10*3/uL Low 1.00-4.00 [facility] Comment on above: Order Comment: Speci men Type: BLOOD SPECIMEN [facility]ing [facility]: [facility] Address: [address] [place] [address] Performed By: #### 5 7021-8 #### [facility] CLIA [id number] [address] Lymphocytes/100 WBC (Bld) 10.7 % Normal [facility] Comment on above: Order Comment: Speci men Type: BLOOD SPECIMEN [facility]ing [facility] Address: [address] [place] [address] Performed By: #### 5 7021-8 #### [facility] CLIA [id number] [address] [place] MCH (RBC) [Entitic mass] 30.5 pg Normal 26.0-34.0 [facility] Comment on above: Order Comment: Speci men Type: BLOOD SPECIMEN [facility]ing [facility]: [facility] Address: [address] [place] [address] Performed By: #### 5 7021-8 #### [facility] CLIA [id number] [address] [place] [address] [place] [facility] MCHC (RBC) [Mass/Vol] 32.8 g/dL Normal 30.5-36.0 [facility] Comment on above: Order Comment: Speci men Type: BLOOD SPECIMEN [facility]ing [facility]: [facility] Address: [address] [place] [address] Performed By: #### 5 7021-8 #### [facility] CLIA [id number] [address] [place] MCV (RBC) [Entitic vol] 93.1 fL Normal 80.0-100.0 [facility] Comment on above: Order Comment: Speci men Type: BLOOD SPECIMEN [facility]ing [facility]: [facility] Address: [address] [place] [address] Performed By: #### 5 7021-8 #### [facility] CLIA [id number] [address] [place] Monocytes (Bld) [#/Vol] 0.58 10*3/uL Normal <0.87 [facility] Comment on above: Order Comment: Speci men Type: BLOOD SPECIMEN [facility]ing Facility: [facility] Address: [address] [place] [address] Performed By: #### 5 7021-8 #### [facility] CLIA [id number] [address] [place] [address] [place] Monocytes/100 WBC (Bld) 6.8 % Normal [facility] Comment on above: Order Comment: Speci men Type: BLOOD SPECIMEN [facility]ing Facility: [facility] Address: [address] [place] [address] Performed By: #### 5 7021-8 #### [facility] CLIA [id number] [address] [place] [address] [place] Neutrophils (Bld) [#/Vol] 7.05 10*3/uL Normal 1.45-7.50 [facility] Comment on above: Order Comment: Speci men Type: BLOOD SPECIMEN [facility]ing Facility: [facility] Address: [address] [place] [address] Performed By: #### 5 7021-8 #### [facility] CLIA [id number] [address] [place] [address] [place] Neutrophils/100 WBC (Bld) 82.2 % Normal [facility] Comment on above: Order Comment: Speci men Type: BLOOD SPECIMEN [facility]ing Facility: [facility] Address: [address] [place] [address] Performed By: #### 5 7021-8 #### [facility] CLIA [id number] [address] [place] [address] [place] Nucleated RBC (Bld) [#/Vol] Normal [facility] Comment on above: Order Comment: Speci men Type: BLOOD SPECIMEN Ordering Facility: [facility] Address: [address] [place] [address] Performed By: #### 5 7021-8 #### [facility] CLIA [id number] [address] [place] [address] [place] Nucleated RBC/100 WBC (Bld) [Ratio] Normal [facility] Comment on above: Order Comment: Speci men Type: BLOOD SPECIMEN Ordering Facility: [facility] Address: [facility] [place] [address] Performed By: #### 5 7021-8 #### [facility] CLIA [id number] [address] [place] [address] [place] Platelet mean volume (Bld) [Entitic vol] 9.6 fL Normal 9.0-12.7 [facility] Comment on above: Order Comment: Speci men Type: BLOOD SPECIMEN Ordering Facility: [facility] Address: [address] [place] [address] Performed By: #### 5 7021-8 #### [facility] CLIA [id number] [address] [place] [address] [place] Platelets (Bld) [#/Vol] 235 10*3/uL Normal 150-400 [facility] Comment on above: Order Comment: Speci men Type: BLOOD SPECIMEN Ordering Facility: [facility] Address: [address] [place] [address] Performed By: #### 5 7021-8 #### [facility] CLIA [id number] [address] [place] [address] [place] RBC (Bld) [#/Vol] 4.52 10*6/uL Normal 3.90-5.20 [facility] Comment on above: Order Comment: Speci men Type: BLOOD SPECIMEN Ordering Facility: [facility] Address: [address] [place] [address] Performed By: #### 5 7021-8 #### [facility] CLIA [id number] [address] [place] [address] [place] WBC (Bld) [#/Vol] 8.58 10*3/uL Normal 3.70-11.00 [facility] Comment on above: Order Comment: Speci men Type: BLOOD SPECIMEN Ordering Facility: [facility] Address: [address] [place] [address] Performed By: #### 5 7021-8 #### [facility] CLIA [id number] [address] [place] [address] OF [facility] CT ABD/PEL WO IVCONon 2023 CT ABD/PEL WO IVCON * * *Final Report* * * DATE OF EXAM: Jun 16 2023 1:18PM [facility] 0531 - CT ABD/PEL WO IVCON [...] No acute osseous abnormality. Lower thorax: Unremarkable. Route Cdl Driver (topogram) images: IMPRESSION: 1. Grossly distended stomach [...] complicated cyst with hemorrhage and/or proteinaceous material. Lab Nurse: PSCB Transcribe Date/Time: Jun 16 2023 1:21P Dictated by : NENA LOMELI MD This examination was interpreted and the report reviewed and electronically signed by: NENA LOMELI MD on Jun 16 2023 1:31PM EST [id number] Normal [facility] Comprehensive metabolic 2000 panelon 06-16-2023 Albumin [Mass/Vol] 4.4 g/dL Normal 3.9-4.9 [facility] Comment on above: Order Comment: Oscar baltazar Type: BLOOD SPECIMEN Ordering Facility: [facility] Address: [address] [place] [address] Performed By: #### 2 4323-8, 0-3 #### [facility] CLIA [id number] [address] [place] [address] [place] ALP [Catalytic activity/Vol] 82 U/L Normal 34-123 [facility] Comment on above: Order Comment: Oscar baltazar Type: BLOOD SPECIMEN Ordering Facility: [facility] Address: [address] [place] [address] Performed By: #### 2 4323-8, 0-3 #### [facility] CLIA [id number] [address] [place] [address] [place] ALT With P-5'-P [Catalytic activity/Vol] 18 U/L Normal 7-38 [facility] Comment on above: Order Comment: Oscar baltazar Type: BLOOD SPECIMEN Ordering Facility: [facility] Address: [address] [place] [address] Performed By: #### 2 4323-8, 3040-3 #### [facility] CLIA [id number] [address] [facility] [place] [address] [place] Anion gap [Moles/Vol] 14 mmol/L Normal 9-18 [facility] Comment on above: Order Comment: Speci men Type: BLOOD SPECIMEN Ordering Facility: [facility] Address: [address] [place] [address] Performed By: #### 2 4323-8, 3040-3 #### [facility] CLIA [id number] [address] [place] [address] [place] AST With P-5'-P [Catalytic activity/Vol] 30 U/L Normal 13-35 [facility] Comment on above: Order Comment: Speci men Type: BLOOD SPECIMEN Ordering Facility: [facility] Address: [address] [place] [address] Performed By: #### 2 4323-8, 3040-3 #### [facility] CLIA [id number] [address] [place] [address] [place] Bilirubin [Mass/Vol] 0.8 mg/dL Normal 0.2-1.3 [facility] Comment on above: Order Comment: Speci men Type: BLOOD SPECIMEN Ordering Facility: [facility] Address: [address] [place] [address] Performed By: #### 2 4323-8, 3040-3 #### [facility] CLIA [id number] [address] [place] [address] [place] Calcium [Mass/Vol] 9.2 mg/dL Normal 8.5-10.2 [facility] Comment on above: Order Comment: Speci men Type: BLOOD SPECIMEN Ordering Facility: [facility] Address: [address] [place] [address] Performed By: #### 2 4323-8, 3040-3 #### [facility] CLIA [id number] [address] [place] [address] [place] Chloride [Moles/Vol] 93 mmol/L Low 97-105 [facility] Comment on above: Order Comment: Speci men Type: BLOOD SPECIMEN Ordering Facility: [facility] Address: [address] [place] [address] Performed By: #### 2 4323-8, 3040-3 #### [facility] CLIA [id number] [address] [place] [address] [place] CO2 [Moles/Vol] 24 mmol/L Normal 22-30 [facility] Comment on above: Order Comment: Speci men Type: BLOOD SPECIMEN Ordering Facility: [facility] Address: [address] [place] [address] Performed By: #### 2 4323-8, 3039-3 #### [facility] CLIA [id number] [address] [place] [address] [place] Creatinine [Mass/Vol] 1.09 mg/dL High 0.58-0.96 [facility] Comment on above: Order Comment: Speci men Type: BLOOD SPECIMEN Ordering Facility: [facility] Address: [address] [place] [address] Performed By: #### 2 4323-8, 3039-3 #### [facility] CLIA [id number] [address] [place] [address] [place] Creatinine and Glomerular filtration rate.predicted panel (S/P/Bld) 51 mL/min/1.73m??? Low >=60 [facility] Comment on above: Order Comment: Speci men Type: BLOOD SPECIMEN Ordering Facility: [facility] Address: [address] [place] [address] Result Comment: Adalgisa mated Glomerular Filtration Rate [...] Performed By: #### 2 4323-8, 0-3 #### [facility] CLIA [id number] [address] [place] [address] [place] Glucose [Mass/Vol] 115 mg/dL High 74-99 [facility] Comment on above: Order Comment: Oscar baltazar Type: BLOOD SPECIMEN Ordering Facility: [facility] Address: [address] [place] [address] Result Comment: The [place] Diabetes Association (ADA) provides guidance for cutoff [...] Standards of Medical Care in Diabetes 2016, [place] [employer]. Diabetes Care. 2016.39(Suppl 1). Performed By: #### 2 4323-8, 0-3 #### [facility] CLIA [id number] [address] [place] [address] [place] Potassium [Moles/Vol] 4.6 mmol/L Normal 3.7-5.1 [facility] Comment on above: Order Comment: Oscar baltazar Type: BLOOD SPECIMEN Ordering Facility: [facility] Address: [address] [place] [address] Performed By: #### 2 4323-8, 3040-3 #### [facility] CLIA [id number] [address] [place] [address] [place] Protein [Mass/Vol] 7.5 g/dL Normal 6.3-8.0 [facility] Comment on above: Order Comment: Oscar baltazar Type: BLOOD SPECIMEN Ordering Facility: [facility] Address: [address] [place] [address] Performed By: #### 2 4323-8, 3040-3 #### [facility] CLIA [id number] [address] [place] [address] [place] Sodium [Moles/Vol] 131 mmol/L Low 136-144 [facility] Comment on above: Order Comment: Speci men Type: BLOOD SPECIMEN Ordering Facility: [facility] Address: [address] [place] [address] Performed By: #### 2 4323-8, 3040-3 #### [facility] CLIA [id number] [address] [place] [address] [facility] [place] Urea nitrogen [Mass/Vol] 18 mg/dL Normal 7-21 [facility] Comment on above: Order Comment: Speci men Type: BLOOD SPECIMEN Ordering Facility: [facility] Address: [address] [place], [place] [address] Performed By: #### 2 4323-8, 3040-3 #### [facility] CLIA [id number] [address] [place] [address] [facility] [place] ECG COMPLETEon 06-16-2023 ECG COMPLETE Ventricular Rate : 7 1 BPM Atrial Rate : 71 BPM P-R Interval : 108 ms QRS Duration : 88 ms Q-T Interval : 392 ms QTC Calculation(Bazett) : 425 ms Calculated P [place] : 6 degrees Calculated R [place] : 36 degrees Calculated T [place] : 54 degrees SINUS RHYTHM WITH SHORT HI OTHERWISE NORMAL ECG NO PREVIOUS ECGS AVAILABLE Confirmed by MD BEACH VINAYAK ([id number]) on 06/18/2023 10:45:30 PM NAME : MARY LI PID : [id number] : 1940 Gender : Female Race : ORD : [id number] Procedure Date : Jun 16 2023 12:06:54 Edit Date : Jun 18 2023 22:45:33 Diagnosis: SINUS RHYTHM WITH SHORT HI OTHERWISE NORMAL ECG NO PREVIOUS ECGS AVAILABLE Confirmed by MD BEACH VINAYAK ([id number]) on 06/18/2023 10:45:30 PM Test Reason : Chest Pain Location : 150 : [facility] Overread By : MD BEACH VINAYAK Edited By : MD BEACH VINAYAK Referred By : , Acquired by : MALENA PARKINSON [facility] ED NOTEon 06-16-2023 ED NOTE HNO ID: [id number] Author: ELA, ANDRIA, RN Service: ? Author Type: Registered Nurse Type: ED Notes Filed: 06/16/2023 16:31 Note Text: [facility] arrives, report given. To Hutchinson with all belongings [facility] ED NOTE HNO ID: [id number] Author: ANDRIA MAHMOOD RN Service: ? Author Type: Registered Nurse Type: ED Notes Filed: 06/16/2023 16:06 Note Text: Pt resting calmly. Reports feeling better. Denies nausea and pain Warm blanket for comfort Normal [facility] ED NOTE HNO ID: [id number] Author: ANDRIA MAHMOOD RN Service: ? Author Type: Registered Nurse Type: ED Notes Filed: 06/16/2023 15:34 Note Text: [facility] contacted Aware of need for suction ETA 60min [facility] ED NOTE HNO ID: [id number] Author: ANDRIA MAHMOOD RN Service: ? Author Type: Registered Nurse Type: ED Notes Filed: 06/16/2023 15:24 Note Text: Bed assignment [place] 220-1 Report [phone] [facility] ED NOTE HNO ID: [id number] Author: ANDRIA MAHMOOD RN Service: ? Author Type: Registered Nurse Type: ED Notes Filed: 06/16/2023 16:08 Note Text: Radiology at bedside for XR Normal [facility] ED NOTE HNO ID: [id number] Author: ANDRIA MAHMOOD RN Service: ? Author Type: Registered Nurse Type: ED Notes Filed: 06/16/2023 16:07 Note Text: Large emesis of bile Normal [facility] ED NOTE HNO ID: [id number] Author: ANDRIA MAHMOOD RN Service: ? Author Type: Registered Nurse Type: ED Notes Filed: 06/16/2023 14:15 Note Text: [facility] contacted per patient request Per housekeeping aide Payton, no bed availability at this time Pt second choice Dr Kaleigh Hutchinson aware [facility] ED NOTE HNO ID: [id number] Author: ANDRIA MAHMOOD RN Service: ? Author Type: Registered Nurse Type: ED Notes Filed: 06/16/2023 12:31 Note Text: Pt ambulates to restroom. Dribbles, quantity insufficient for UA Normal [facility] ED NOTE HNO ID: [id number] Author: ANDRIA MAHMOOD, LUCY Service: ? Author Type: Registered Nurse Type: ED Notes Filed: 06/16/2023 11:08 Note Text: Pt arrives c/o abdominal pain, nausea, vomiting and diarrhea for 3 days Normal [facility] ED PROV NOTEon 06-16-2023 ED PROV NOTE HNO ID: [id number] Author: MAXINE FARRIS MD Service: Emergency Medicine [...] people sick with similar symptoms in the [facility] currently, but patient has not been exposed [...] / Dispo (more content not included)... Normal [facility] HISTORY PHYSICALon HISTORY PHYSICAL HNO ID: [id number] Author: TYRELL FINK MD Service: General Surgery [...] She presented to the emergency room in [place] with these complaints. She was seen and evaluated by the ER staff CAT scan was performed and showed a very distended stomach along with findings concerning for small bowel obstruction. I was contacted to transfer the patient for further evaluation and treatment. We did recommend NG tube which was placed in [place]. She felt considerably better after this was [...] Rfl: , 06/14/2023 at 1500 vits A-C-E-B bfkhbr-cih-ogxame 5,000 unit- 120 mg-60 unit TbER, Take [...] June 16, 2023 TIME: 6:09 PM Normal [facility] Lactate (Bld) [Moles/Vol]on 06-16-2023 Lactate [Moles/Vol] 1.1 mmol/L Normal 0.5-2.2 [facility] Comment on above: Order Comment: Oscar baltazar Type: BLOOD SPECIMEN Ordering Facility: [facility] Address: [address] [place] [address] Performed By: #### 3 2693-4 #### [facility] CLIA [id number] [address] [place] [address] [place] Lipase SerPl-cCncon 06-16-19 24 Lipase [Catalytic activity/Vol] 29 U/L Normal 16-61 [facility] Comment on above: Order Comment: Oscar baltazar Type: BLOOD SPECIMEN Ordering Facility: [facility] Address: [address] [id number] Performed By: #### 2 4323-8, 37803 #### [facility] CLIA [id number] [address] [place] [address] [facility] NURSING PROGon 06-16-2023 NURSING PROG HNO ID: [id number] Author: RAMONA LOVE, RN Service: Nursing Author Type: Registered Nurse Type: Nursing Progress Note Filed: 06/16/2023 19:10 Note Text: Other: Admission assessment completed. C-SSRS screening completed. Patient answered yes to the first question. Patient has no intentions hurting herself. Patient reported since her in October last year, she felt depressed. Dr Aleks dietrich. 2 RN Skin assessment completed with LUCY Carter. Normal [facility] Urinalysis complete pnl Uron 06-16-2023 Urinalysis [...] URINE: <10,000 CFU/ml Normal Urogenital Gill Abnormal [facility] Comment on above: Order Comment: Speci men Type: URINE SPECIMENOrdering Facility: [facility] Address: [address] [place] [address] Performed By: #### 2 4356-8 ####[facility] [id number] [place] [address] [facility] [id number] [place] [address] [facility] XR ABDOMEN 1V SUPINEon 06-15 XR [...] abdomen expected location of distal stomach/proximal duodenum Lab Nurse: BLOSSOM Transcribe Date/Time: Jun 16 2023 3:35P Dictated by : NENA LOMELI MD This examination was interpreted and the report reviewed and electronically signed by: NENA LOMELI MD on Jun 16 2023 3:35PM EST [id number] Normal [facility] Basophil percentageOrdered B y: Evonne Lara on 02-24-2023 Chloride [Moles/Vol] 108 mmol/L 98-107 [facility] Glucose [Mass/Vol] 68 mg/dL 74-106 [facility] Potassium [Moles/Vol] 4.1 mmol/L 3.5-5.1 [facility] Sodium [Moles/Vol] 141 mmol/L 136-145 [facility] Laboratory - Chemistry and C hemistry - challengeOrdered By: Evonne Lara on 02-24-2023 CO2 [Moles/Vol] 27.0 mmol/L 21.0-32.0 [facility] Urea nitrogen/Creatinine [Mass ratio] 13.8 mg/mg - [facility] No Panel InformationOrdered By: Evonne Lara on 02-24-2023 Estimated GFR (MDRD) Amer 80 mL/min >60 [facility] Comment on above: GFR Calc Estimated GFR (MDRD) Non-Af Amer 66 mL/min >60 [facility] Comment on above: Non- GFR Calc Serum or plasma calcium theron urement (mass/volume)Ordered By: Evonne Lara on 02-24-2023 Calcium [Mass/Vol] 8.8 mg/dL 8.5-10.1 [facility] Serum or plasma creatinine m easurement (mass/volume)Ordered By: Evonne Lara on 02-24-2023 Creatinine [Mass/Vol] 0.87 mg/dL 0.55-1.02 [facility] Comment on above: The validity of the calculated GFR & GFRAA in patients over 70 years has not been determined. Clinical correlation is essential. Serum or plasma urea nitroge n measurement (mass/volume)Ordered By: Evonne Lara on 02-24-2023 Urea nitrogen [Mass/Vol] 12 mg/dL 7-18 [facility] Thin prep Papanicolaou smear with manual screeningOrdered By: Evonne Lara on 02-24-2023 Thin prep Papanicolaou smear with manual screening 6 5-15 [facility] Basophil percentageOrdered B y: Evonne Lara on 02-21-2023 Basophil percentage < 0.9 mg/dL 0.55-1.[address] [facility] No Panel InformationOrdered By: Evonne Lara on 02-21-2023 Bedside Estimated GFR (eGFR) > 60.0000 mL/min >60 [facility] Basophil percentageOrdered B y: Evonne Lara on 02-04-2023 Chloride [Moles/Vol] 103 mmol/L 98-107 [facility] Glucose [Mass/Vol] 126 mg/dL 74-106 [facility] Comment on above: Fasting Glucose resu lt greater than or equal to 126 mg/dL suggests DIABETES MELLITUS per A.D.A. criteria. Potassium [Moles/Vol] 3.9 mmol/L 3.5-5.1 [facility] Sodium [Moles/Vol] 131 mmol/L 136-145 [facility] Basophil percentage < 0.9 mg/dL 0.55-1.[address] [facility] Laboratory - Chemistry and C hemistry - challengeOrdered By: Evonne Lara on 02-04-2023 CO2 [Moles/Vol] 26.0 mmol/L 21.0-32.0 [facility] Urea nitrogen/Creatinine [Mass ratio] 21.8 mg/mg 01-24 [facility] No Panel InformationOrdered By: Evonne Lara on 02-04-2023 Estimated GFR (MDRD) Amer 56 mL/min >60 [facility] Comment on above: GFR Calc Estimated GFR (MDRD) Non-Af Amer 46 mL/min >60 [facility] Comment on above: Non- GFR Calc Bedside Estimated GFR (eGFR) > 60.0000 mL/min >60 [facility] Serum or plasma calcium theron urement (mass/volume)Ordered By: Evonne Lara on 02-04-2023 Calcium [Mass/Vol] 9.2 mg/dL 8.5-10.1 [facility] Serum or plasma creatinine m easurement (mass/volume)Ordered By: Evonne aLra on 02-04-2023 Creatinine [Mass/Vol] 1.19 mg/dL 0.55-1.02 [facility] Comment on above: The validity of the calculated GFR & GFRAA in patients over 70 years has not been determined. Clinical correlation is essential. Serum or plasma urea nitroge n measurement (mass/volume)Ordered By: Evonne Lara on 02-04-2023 Urea nitrogen [Mass/Vol] 26 mg/dL 7-18 [facility] Thin prep Papanicolaou smear with manual screeningOrdered By: Evonne Lara on 02-04-2023 Thin prep Papanicolaou smear with manual screening 2 5-15 [facility] URINE ANUJ CULTURE-IDENTIFICA TN ([id number])Ordered By: Pool Finisher on 12-05-2022 Bacteria identified Cx Nom (U) Final report [facility]; [facility] Work Phone: Comment on above: PERFORMED BY: [facility] [id number] Information: SRC:UR Bacteria identified Cx Nom (U) NG36 Normal [facility]; [facility] Work Phone: Comment on above: No growth in 36 - 48 hours. PERFORMED BY: [facility] [place] [id number] Information: SRC:UR Urinalysis, Office ([id number])Or dered By: KELBY Armando on 12-05-2022 Bilirubin [...] [#/Vol] 1.88 10*3/uL 0.83-4.51 [facility] Basophil percentageOrdered B y: Mattie Bob on 11-20-2022 Basophils/100 WBC (Bld) 0.6 % 0-1 [facility] Bilirubin [Mass/Vol] 0.50 mg/dL 0.20-1.00 [facility] Comment on above: For patients on eltr ombopag therapy, use of Dimension [place] TBIL is not recommended. Chloride [Moles/Vol] 109 mmol/L 98-107 [facility] Eosinophils/100 WBC (Bld) 1.3 % 0-5 [facility] Glucose [Mass/Vol] 84 mg/dL 74-106 [facility] Neutrophils (Bld) [#/Vol] 3.8 10*3/uL 2.0-7.7 [facility] Neutrophils/100 WBC (Bld) 60.5 % 47-70 [facility] Potassium [Moles/Vol] 4.1 mmol/L 3.5-5.1 [facility] Protein [Mass/Vol] 7.1 g/dL 6.4-8.2 [facility] Sodium [Moles/Vol] 142 mmol/L 136-145 [facility] WBC (Bld) [#/Vol] 6.3 10*3/uL 4.4-11.0 [facility] Blood erythrocytes count (nu mber/volume)Ordered By: Mattie Rojas on 11-20-2022 RBC (Bld) [#/Vol] 4.16 10*6/uL 4.2-5.4 [facility] Blood hemoglobin measurement (mass/volume)Ordered By: Mattie Rojas on 11-20-2022 Hemoglobin (Bld) [Mass/Vol] 12.4 g/dL 12.0-15.0 [facility] Blood lymphocytes/100 leukoc ytesOrdered By: Mattie Rojas on 11-20-2022 Lymphocytes/100 WBC (Bld) 29.8 % 19-41 [facility] Blood monocytes/100 leukocyt esOrdered By: Mattie Rojas on 11-20-2022 Monocytes/100 WBC (Bld) 7.6 % 0-10 [facility] Blood platelet mean volumeOr dered By: Mattei Rojas on 11-20-2022 Platelet mean volume (Bld) [Entitic vol] 10.9 fL 6.2-12.0 [facility] Determination of erythrocyte mean corpuscular volume (MCV)Ordered By: Mattie Rojas on 11-20-2022 MCV (RBC) [Entitic vol] 93.8 fL 81-99 [facility] Hematocrit Auto (Bld) [Volum e fraction]Ordered By: Mattie Rojas on 11-20-2022 Hematocrit (Bld) [Volume fraction] 39.0 % 37-47 [facility] Laboratory - Chemistry and C hemistry - challengeOrdered By: Mattie Rojas on 11-20-2022 ALP [Catalytic activity/Vol] 70 U/L 45-117 [facility] ALT [Catalytic activity/Vol] 21 U/L 13-56 [facility] CO2 [Moles/Vol] 33.0 mmol/L 21.0-32.0 [facility] Globulin (S) [Mass/Vol] 3.5 g/dL 2.2-4.2 [facility] Urea nitrogen/Creatinine [Mass ratio] 15.5 mg/mg 10-20 [facility] Laboratory - Hematology and Cell countsOrdered By: Mattie Rojas on 11-20-2022 Erythrocyte distribution width (RBC) [Entitic vol] 45.2 fL 35.1-43.9 [facility] Erythrocyte distribution width (RBC) [Ratio] 13.2 % 11.6-14.6 [facility] Immature granulocytes/100 WBC (Bld) 0.200 % 0.0-0.9 [facility] Comment on above: IG% - Immature Granu locytes (promyelocytes, myelocytes and metamyelocytes) > 1% indicates that a LEFT SHIFT is Present. MCH (RBC) [Entitic mass] 29.8 pg 27.0-32.0 [facility] Nucleated RBC/100 WBC (Bld) [Ratio] 0 % 0-5 [facility] MCHC Auto (RBC) [Mass/Vol]Or dered By: Mattie Rojas on 11-20-2022 MCHC (RBC) [Mass/Vol] 31.8 g/dL 32-36 [facility] No Panel InformationOrdered By: Mattie Rojas on 11-20-2022 Estimated GFR (MDRD) Amer 84 mL/min >60 [facility] Comment on above: GFR Calc Estimated GFR (MDRD) Non-Af Amer 69 mL/min >60 [facility] Comment on above: Non- GFR Calc Platelets bldOrdered By: Joey Rojas on 11-20-2022 Platelets (Bld) [#/Vol] 233 10*3/uL 150-450 [facility] Serum or plasma albumin theron urement (mass/volume)Ordered By: Mattie Rojas on 11-20-2022 Albumin [Mass/Vol] 3.6 g/dL 3.2-[facility].0 [facility] [facility] Serum or plasma albumin/glob ulin mass ratioOrdered By: Mattie Rojas on 11-20-2022 Albumin/Globulin [Mass ratio] 1.0 {ratio} 0.9-2.4 [facility] Serum or plasma calcium theron urement (mass/volume)Ordered By: Mattie Rojas on 11-20-2022 Calcium [Mass/Vol] 9.1 mg/dL 8.5-10.1 [facility] Serum or plasma creatinine m easurement (mass/volume)Ordered By: Mattie Rojas on 11-20-2022 Creatinine [Mass/Vol] 0.84 mg/dL 0.55-1.02 [facility] Comment on above: The validity of the calculated GFR & GFRAA in patients over 70 years has not been determined. Clinical correlation is essential. Serum or plasma urea nitroge n measurement (mass/volume)Ordered By: Mattie Rojas on 11-20-2022 Urea nitrogen [Mass/Vol] 13 mg/dL 7-18 [facility] Thin prep Papanicolaou smear with manual screeningOrdered By: Mattie Rojas on 11-20-2022 Thin prep Papanicolaou smear with manual screening 22 U/L 15-37 [facility] Thin prep Papanicolaou smear with manual screening 0 5-15 [facility] Urinalysis, Complete W/ Micr oscopic Examination with reflex to urine culture, routine (31539)Ordered By: Pool Finisher on 11-20-2022 Appearance (U) Turbid Abnormal Comprehens [facility]ind [facility]; [facility] Work Phone: Comment on above: PERFORMED BY: [employer] [place] [id number] Color (U) Labette Normal [facility]; [facility] Work Phone: Comment on above: Test not performed. Unable to obtain accurate result for this testdue to intense color of specimen. PERFORMED BY: [employer] [place] [id number] Urinalysis, Complete W/ Microscopic Examination with reflex to urine culture, routine (60176) See below: Normal [facility]; [facility] Work Phone: Comment on above: Microscopic was shirley cated and was performed. PERFORMED BY: [employer] [place] [id number] Urinalysis, Complete W/ Microscopic Examination with reflex to urine culture, routine (99599) FLEX Normal [facility]; [facility] Work Phone: Comment on above: This specimen has re flexed to a Urine Culture. PERFORMED BY: [place] [id number] Urinalysis, Office (09075)Or dered By: Mellisa Salguero on 11-20-2022 Bilirubin [...] times a day, As Needed Drug Name: Supai-3 1000 mg oral capsule Instructions: 1 cap(s) [...] SIGNS: T PRBP SpO2O2(LPM) %FiO2 Method 15-Nov-2020 16:04:00-36.359774/99 97 PHYSICAL EXAM CONSTITUTIONAL: Well appearing, well [...] ill patient: no Electronic Signatures: Mehreen Lopes (COINING PRESS OPERATOR-PIPE BENDING MACHINE OPERATOR) (Signed 15-Nov-2020 16:31) Authored: ED Notes, HPI, PMH, ROS, PE, Results/Vital Signs, Clinical Impression, Attestation, Chart Review, Scores Last Updated: 15-Nov-2020 16:31 by Mehreen Lopse (COINING PRESS OPERATOR-PIPE BENDING MACHINE OPERATOR) [facility] Urinalysis, Office ([id number])Or dered By: Estelita Roth on 02-10-2020 Bilirubin [...] Medicine Work Phone: URINE ANUJ CULTURE-IDENTIFICA [place] ([id number])Ordered By: Pool Finisher on 01-20-2020 Bacteria identified Cx Nom (U) Final report Abnormal [facility] Work Phone: Comment on above: PATIENT NOT FASTINGP ERFORMED BY: Getable70 [facility] [id number] Information: SRC:UC Bacteria identified Cx Nom (U) [...] and Proteusmirabilis. PATIENT NOT FASTINGP ERFORMED BY: [id number] ADITU SASLourdes Hospital [id number] Information: SRC:UC Other Antibiotic [Susc] MIHEAD Normal [...] PATIENT NOT FASTINGP ERFORMED BY: JEANETH [facility] Bthugo9854 Hameed RoadAtrium Health Harrisburg [id number] Information: SRC:VANCE Urinalysis, Office ([id number])Or dered By: Lily Acuña on 01-20-2020 Bilirubin [...] No evidence of choledocholithiasis. Left renal cyst. Lab Nurse: PSCB Transcribe Date/Time: May 27 2019 1:18P Dictated by : RAY ROGERS MD This examination was interpreted and the report reviewed and electronically signed by: RAY ROGERS MD on May 27 2019 1:33PM EST Normal [facility] MRI PANC/KHANG WO/W IVCONon MRI PANC/KHANG WO/W [...] No evidence of choledocholithiasis. Left renal cyst. Lab Nurse: PSCJarad Transcribe Date/Time: May 27 2019 1:18P Dictated by : RAY ROGERS MD This examination was interpreted and the report reviewed and electronically signed by: RAY ROGERS MD on May 27 2019 1:33PM EST Normal [facility] URINE ANUJ CULTURE-IDENTIFICA TN ([id number])Ordered By: Pool Finisher on 04-09-2019 Bacteria identified Cx Nom (U) MUG Normal [facility] Work Phone: Comment on above: Mixed urogenital nita ra1,000 Colonies/mL PATIENT NOT FASTINGP ERFORMED BY: [facility] Ipmzje3252 [facility]Mer[facility] [id number] Information: SRC:UC Bacteria identified Cx Nom (U) Final report Normal [facility] Work Phone: Comment on above: PATIENT NOT FASTINGP ERFORMED BY: [facility] Hikmlj[address] Plan B FundingAtrium Health [facility] [id number] Information: SRC: Urinalysis, Office ([id number])Or dered By: Estelita Roth on 04-08-2019 Bilirubin [...] diarrhea Colonoscopy; Status:Hold For - Scheduling; Requested for:[id number]; Perform:[facility]; Due:15Jun2019;Ordered; Stat; For:Alternating constipation and diarrhea; Ordered [...] Colonoscopy History of Esophagogastroduodenoscopy Managed By: Marisabel WELLS, Kasia Schmitz History of Knee arthroscopy History [...] Tablet Lutein CAPS Multi Vitamin Oral Tablet Supai 3 1000 MG Oral Capsule Omeprazole 40 MG Oral Capsule Delayed Release Vitamin D3 TABS Zeaxanthin Powder Zofran 8 MG Oral Tablet Zoloft 50 MG Oral Tablet Vitals Vital Signs Recorded: [id number] 08:44AM Nbwqoadn141 Cvyazddut52 Height5 ft 5.5 in Epnylw218 lb BMI Wvdtfslitu15.75 BSA Calculated1.77 Physical Exam Constitutional General appearance: [...] CBC & PLATELETS (AUTO) (8502 [id number])Ordered By: Pool Finisher on 10-12-2018 Erythrocyte distribution width (RBC) [Ratio] 13.1 % Normal 12.3-15.4 [facility] Work Phone: Comment on above: PATIENT NOT FASTINGP ERFORMED BY: [facility]ionL[facility] [id number] Hematocrit (Bld) [Volume fraction] 37.0 % Normal 34.0-46.6 [facility] Work Phone: Comment on above: PATIENT NOT FASTINGP ERFORMED BY: [facility]ionL[facility] Hospital [id number] Hemoglobin (Bld) [Mass/Vol] 12.7 g/dL Normal 11.1-15.9 [facility] Work Phone: Comment on above: PATIENT NOT FASTINGP ERFORMED BY: [employer] [place] [id number] MCH (RBC) [Entitic mass] 30.3 pg Normal 26.6-33.0 [facility] Work Phone: Comment on above: PATIENT NOT FASTINGP ERFORMED BY: WeoGeoAtrium Health [facility] [id number] MCHC (RBC) [Mass/Vol] 34.3 g/dL Normal 31.5-35.7 [facility] Work Phone: Comment on above: PATIENT NOT FASTINGP ERFORMED BY: CB [facility] Ntasyj8741 [address] RoadDublin [place] [id number] MCV (RBC) [Entitic vol] 88 fL Normal 79-97 [facility] Work Phone: Comment on above: PATIENT NOT FASTINGP ERFORMED BY: CB [facility] Mvarbi8089 [address] RoadDublin [place] [id number] Platelets (Bld) [#/Vol] 255 {x10E3/uL} Normal 150-450 [facility] Work Phone: Comment on above: PATIENT NOT FASTINGP ERFORMED BY: CB [facility] Uqiarz3888 [address] RoadDublin [place] [id number] Platelets (Bld) [#/Vol] 255 10*3/uL Normal 150-450 [facility]; [facility] Work Phone: Comment on above: PATIENT NOT FASTINGP ERFORMED BY: CB [facility] Qubabx8839 [address] RoadDublin [place] [id number] RBC (Bld) [#/Vol] 4.19 {x10E6/uL} Normal 3.77-5.28 [facility] Internal Medicine Work Phone: Comment on above: PATIENT NOT FASTINGP ERFORMED BY: CB [facility] Swbemb4862 [address] RoadDublin [place] [id number] RBC (Bld) [#/Vol] 4.19 10*6/uL Normal 3.77-5.28 [facility] Internal [facility]; [facility] Work Phone: Comment on above: PATIENT NOT FASTINGP ERFORMED BY: CB [facility] Cjoiiq2222 [address] RoadDublin [place] [id number] WBC (Bld) [#/Vol] 6.5 {x10E3/uL} Normal 3.4-10.8 [facility] Internal Medicine Work Phone: Comment on above: PATIENT NOT FASTINGP ERFORMED BY: CB [facility] Zrflwd3522 [address] RoadDublin [place] [id number] WBC (Bld) [#/Vol] 6.5 10*3/uL Normal 3.4-10.[address] [facility] Internal Medicine; [facility] Work Phone: Comment on above: PATIENT NOT FASTINGP ERFORMED BY: JEANETH [facility] Cajecs3151 [address] RoadDublin [place] [id number] METABOLIC PANEL, COMPREHENSI VE (40303)Ordered By: Pool Finisher on 10-12-2018 Albumin [Mass/Vol] 4.4 g/dL Normal 3.5-4.[address] [facility] Internal Medicine Work Phone: Comment on above: PATIENT NOT FASTINGP ERFORMED BY: JEANETH [facility] Xmiujy1953 [address] RoadDublin [place] [id number] Albumin/Globulin [Mass ratio] 1.5 {ratio} Normal 1.2-2.2 [facility] Work Phone: Comment on above: PATIENT NOT FASTINGP ERFORMED BY: JEANETH [facility] Pufyhy6916 [address] RoadDublin [place] [id number] ALP [Catalytic activity/Vol] 78 [iU]/L Normal 39-117 [facility] Work Phone: Comment on above: PATIENT NOT FASTINGP ERFORMED BY: JEANETH [facility] Sxijgo9741 [address] RoadDublin [place] [id number] ALP [Catalytic activity/Vol] 78 U/L Normal 39-117 [facility]; [facility] Work Phone: Comment on above: PATIENT NOT FASTINGP ERFORMED BY: CB [facility] Cugcfq1982 [address] RoadDublin [place] [id number] ALT [Catalytic activity/Vol] 15 [iU]/L Normal 0-32 [facility] Work Phone: Comment on above: PATIENT NOT FASTINGP ERFORMED BY: CB [facility] Usitch1622 [address] RoadDublin [place] [id number] ALT [Catalytic activity/Vol] 15 U/L Normal 0-32 [facility]; [facility] Work Phone: Comment on above: PATIENT NOT FASTINGP ERFORMED BY: CB [facility] Uqdimn8291 [address] RoadDublin [place] [id number] AST [Catalytic activity/Vol] 27 [iU]/L Normal 0-40 [facility] Work Phone: Comment on above: PATIENT NOT FASTINGP ERFORMED BY: CB [facility] Oomgua5543 [address] RoadDublin [place] [id number] AST [Catalytic activity/Vol] 27 U/L Normal 0-40 [facility]; [facility] Work Phone: Comment on above: PATIENT NOT FASTINGP ERFORMED BY: CB [facility] Udenbe6905 [address] RoadDublin [place] [id number] Bilirubin [Mass/Vol] 0.5 mg/dL Normal 0.0-1.2 [facility] Work Phone: Comment on above: PATIENT NOT FASTINGP ERFORMED BY: CB [facility] Nlkhrm5238 [address] RoadDublin [place] [id number] Calcium [Mass/Vol] 9.4 mg/dL Normal 8.7-10.[address] [facility] Internal Medicine Work Phone: Comment on above: PATIENT NOT FASTINGP ERFORMED BY: CB [facility] Qivlzw5890 [address] RoadDublin [place] [id number] Chloride [Moles/Vol] 106 mmol/L Normal 96-106 [facility] Work Phone: Comment on above: PATIENT NOT FASTINGP ERFORMED BY: CB [facility] Nejhcn2688 [address] RoadDublin [place] [id number] CO2 [Moles/Vol] 23 mmol/L Normal 20-29 [facility] Internal Medicine Work Phone: Comment on above: PATIENT NOT FASTINGP ERFORMED BY: CB [facility] Eiqryn0671 [address] RoadDublin [place] [id number] Creatinine [Mass/Vol] 0.80 mg/dL Normal 0.57-1.00 [facility] Internal Medicine Work Phone: Comment on above: PATIENT NOT FASTINGP ERFORMED BY: CB [facility] Elrxcd3065 [address] RoadDublin [place] [id number] GFR/1.73 sq M predicted among blacks CKD-EPI (S/P/Bld) [Vol rate/Area] 82 mL/min/1.73 Normal [facility] Work Phone: Comment on above: PATIENT NOT FASTINGP ERFORMED BY: CB [facility] Yyptur1117 [address] RoadDublin [place] [id number] GFR/1.73 sq M predicted among non-blacks CKD-EPI (S/P/Bld) [Vol rate/Area] 71 mL/min/1.73 Normal [facility] Work Phone: Comment on above: PATIENT NOT FASTINGP ERFORMED BY: CB [facility] Jijrib7768 [address] RoadDublin [place] [id number] Globulin (S) [Mass/Vol] 3.0 g/dL Normal 1.5-4.5 [facility] Work Phone: Comment on above: PATIENT NOT FASTINGP ERFORMED BY: CB [facility] Snfyej3520 [address] RoadDublin [place] [id number] Glucose [Mass/Vol] 90 mg/dL Normal 65-[address] [facility] Internal Medicine Work Phone: Comment on above: PATIENT NOT FASTINGP ERFORMED BY: CB [facility] Ujclwm5669 [address] RoadDublin [place] [id number] Potassium [Moles/Vol] 4.6 mmol/L Normal 3.5-5.2 [facility] Work Phone: Comment on above: PATIENT NOT FASTINGP ERFORMED BY: CB [facility] Luwrgg4306 [address] RoadDublin [place] [id number] Protein [Mass/Vol] 7.4 g/dL Normal 6.0-8.[address] [facility] Internal Medicine Work Phone: Comment on above: PATIENT NOT FASTINGP ERFORMED BY: CB [facility] Pzliwn0011 [address] RoadDublin [place] [id number] Sodium [Moles/Vol] 142 mmol/L Normal 134-[address] [facility] Internal Medicine Work Phone: Comment on above: PATIENT NOT FASTINGP ERFORMED BY: CB [facility] Efxcgs0709 [address] RoadDublin [place] [id number] Urea nitrogen [Mass/Vol] 16 mg/dL Normal 8-27 [facility] Work Phone: Comment on above: PATIENT NOT FASTINGP ERFORMED BY: JEANETH Gonzalez[address] Plan B FundingAtrium Health [facility] [id number] Urea nitrogen/Creatinine [Mass ratio] 20 mg/mg Normal 12-28 [facility] Work Phone: Comment on above: PATIENT NOT FASTINGP ERFORMED BY: JEANETH [facility] Kdapsr3982 [address] TestObjectAtrium Health [facility]burg [id number] Sed Rate Erythrocyte (11071) Ordered By: Pool Finisher on 10-12-2018 ESR (Bld) [Velocity] 5 mm/h Normal 0-40 [facility] Work Phone: Comment on above: PATIENT NOT FASTINGP ERFORMED BY: JEANETH Diamondlin[address] TestObjectAtrium Health [facility] [id number] MRI Abdomen w/ + w/o Contras ton [...] Major vessels are patent. In the left Q93-G94tdakgqnustfi there is a 1.6 cm cystic structure possibly a perineural cyst.IMPRESSION:Left mid kidney hemorrhagic cyst and left upper pole simple cyst. No worrisomekidney lesions. Additional incidental findings described above. FINAL REPORT Dictated: 05/05/2017 4:22 pm Gilberto Ponce MD ISigned (Electronic Signature): 05/05/2017 4:22 pmSigned by: Gilberto Ponce MD, I Technologist: Leandro DOWNING [facility] US Abdomen, Limitedon 2017 US Abdomen, Limited [...] by: Marquis Muñoz DO Technologist: SHAUN Normal [facility] Auto Diffon 05-01-2017 Basophils Auto #/vol (Bld) 0.1 E3/mcL Normal 0.0-0.2 [facility] Comment on above: Order Comment: Order Added by Iftikhar Expert. Performed By: #### 2 [id number] ####ROCKY WisQlay5646 [place] [address] Basophils/100 WBC Auto (Bld) 1.1 % Normal 0.0-2.0 [facility] Comment on above: Order Comment: Order Added by Iftikhar Expert. Performed By: #### 2 288115 ####ROCKY TpwDyjs0151 [place] [address] Eos Absolute 0.1 E3/mcL Normal 0.0-0.7 [facility] Comment on above: Order Comment: Order Added by Discern Expert. Performed By: #### 2 964238 ####ROCKY MfrQxnb7654 [place] [address] Eosinophils/100 leukocytes 1.6 % Normal 0.0-11.0 [facility] Comment on above: Order Comment: Order Added by Discern Expert. Performed By: #### 2 277341 ####ROCKY MccoyFreKnux0222 [place] [address] Lymphocytes 4.0 E3/mcL High 1.2-3.4 [facility] Comment on above: Order Comment: Order Added by Discern Expert. Performed By: #### 2 986050 ####ROCKY MccoyUnrXpnl3068 [place] [address] Lymphocytes/100 leukocytes 43.3 % Normal 20.0-55.0 [facility] Comment on above: Order Comment: Order Added by Discern Expert. Performed By: #### 2 010933 ####ROCKY MccoyPlxCbgx4267 [place] [address] [place] Absolute 0.6 E3/mcL Normal 0.0-0.7 [facility] Comment on above: Order Comment: Order Added by Discern Expert. Performed By: #### 2 822409 ####ROCKY MccoyHdhQmne7512 [place] [address] Monocytes/100 leukocytes 6.3 % Normal 0.0-10.0 [facility] Comment on above: Order Comment: Order Added by Discern Expert. Performed By: #### 2 993578 ####ROCKY MccoyDwaOnfn6942 [place] [address] Neutro Absolute 4.4 E3/mcL Normal 1.4-6.5 [facility] Comment on above: Order Comment: Order Added by Discern Expert. Performed By: #### 2 469069 ####ROCKY RcbMpup1565 [place] [address] Neutro Auto 47.7 % Normal 37.0-75.0 [facility] Comment on above: Order Comment: Order Added by Discern Expert. Performed By: #### 2 303556 ####ROCKY MccoyEgvAije0500 [place] [address] BMPon 05-01-2017 BUN/Creatinine Ratio 12.2 ratio Normal 5.4-30.0 [facility] Comment on above: Performed By: #### 2 331238 ####ROCKY Pantoja1025 [place] [address] Creatinine 0.9 mg/dL Normal 0.6-1.3 [facility] Comment on above: Performed By: #### 2 543722 ####ROCKY Pantoja1025 [place] [address] Urea nitrogen 11 mg/dL Normal 7-18 [facility] Comment on above: Performed By: #### 2 925534 ####ROCKY [address]antoja[address]25 [place] [address] Calcium 10.0 mg/dL Normal 8.4-10.2 [facility] Comment on above: Performed By: #### 2 961418 ####ROCKY Pantoja1025 [place] [address] Chloride 101 mmol/L Normal 98-107 [facility] Comment on above: Performed By: #### 2 260572 ####ROCKY HtfTktt7201 [place] [address] CO2 27.3 mmol/L Normal 24.0-30.0 [facility] Comment on above: Performed By: #### 2 505423 ####ROCKY BbeUbgy6[address] [place] [id number] Glucose mass conc 94 mg/dL Normal 70-99 [facility] Comment on above: Performed By: #### 2 462484 ####ROCKY BimWewz9498 [place] [address] Potassium molar conc 3.7 mmol/L Normal 3.5-5.1 [facility] Comment on above: Performed By: #### 2 384322 ####ROCKY MccoyRfpQhsz1867 [place] [address] Sodium 138 mmol/L Normal 136-145 [facility] Comment on above: Performed By: #### 2 437593 ####ROCKY Pantoja1025 [place] [address] BNP.on 05-01-2017 BNP 27 pg/mL Normal <=100 [facility] Comment on above: Result Comment: Noti ce: [...] patient's BNP level. Performed By: #### 1 [id number] ####ROCKY MccoyNxeShak9573 [place] [id number] CBC w/ Auto Diffon Erythrocyte distribution width Auto Ratio (RBC) 13.6 % Normal 11.5-14.5 [facility] Comment on above: Performed By: #### 2 608160 ####ROCKY MccoyUvoTgan4528 [place] 6393305 Erythrocytes (RBC) 4.63 E6/mcL Normal 3.90-5.40 [facility] Comment on above: Performed By: #### 2 718764 ####ROCKY AfcEmap6618 [place] 6393305 Hematocrit (HCT) 40.2 % Normal 36.0-48.0 [facility] Comment on above: Performed By: #### 2 522426 ####ROCKY TbuQpvv4640 [place] [address] Hemoglobin mass conc (Bld) 13.3 g/dL Normal 12.0-16.0 [facility] Comment on above: Performed By: #### 2 385092 ####ROCKY XuiSeth2437 [place] [address] MCH 28.8 pg Normal 27.0-31.0 [facility] Comment on above: Performed By: #### 2 933871 ####ROCKY HxdKjgc4483 [place] [address] MCHC mass conc (RBC) 33.2 g/dL Normal 33.0-37.0 [facility] Comment on above: Performed By: #### 2 523499 ####ROCKY KojIuas9545 [place] [address] MCV 86.8 fL Normal 78.0-100.0 [facility] Comment on above: Performed By: #### 2 147539 ####ROCKY WqyAwtb6346 [place] [address] Platelet mean volume (PMV) 9.5 fL Normal 7.4-11.0 [facility] Comment on above: Performed By: #### 2 439853 ####ROCKY Floydo1025 [place] [address] Platelets 223 E3/mcL Normal 130-400 [facility] Comment on above: Performed By: #### 2 965380 ####ROCKY Floydo1025 [place] [address] WBC (Leukocytes) 9.2 E3/mcL Normal 3.6-11.0 [facility] Comment on above: Performed By: #### 2 987889 ####ROCKY Floydo1025 [place] [address] CKon 05-01-2017 Total CK 104 Int._Unit/L Normal 26-140 [facility] Comment on above: Performed By: #### 1 [id number] ####ROCKY Pantoja1025 [place] [address] Total CK 105 Int._Unit/L Normal 26-140 [facility] Comment on above: Performed By: #### 1 7503612 ####ROCKY MccoySdjTalt7613 [place] 6393305 CKMBon 05-01-2017 CKMB 1.4 ng/mL Normal 0.0-5.0 [facility] Comment on above: Performed By: #### 1 2892714 ####ROCKY Pantoja[address]25 [place] [address] CKMB 1.5 ng/mL Normal 0.0-5.0 [facility] Comment on above: Performed By: #### 1 3265581 ####ROCKY MccoyDcpNahs8416 [place] [address] D-Dimeron 05-01-2017 D-Dimer 0.55 mg/L FEU Critically abnormal <=0.50 [facility] Comment on above: Result Comment: Crit ical Result DIMER:0.55 Called to MONIQUE JONES at: 04:53:45 by:CARTER Read back by:MONIQUE Corbett D Dimer level indicates no Deep Vein Thrombosis (DVT) or Pulmonary Embolism (PE).Elevated D Dimer level indicates additional studies and clinical assessments are indicated to conclude diagnosis of Deep Vein Thromobsis (DVT) or Pulmonary Embolism (PE). Performed By: #### 2 904064 ####ROCKY Hematology Automated Eelaikzjgh9668 [place] [address] Hep Func Panelon 05-01-2017 Alanine aminotransferase (ALT) 15 Int._Unit/L Normal 10-40 [facility] Comment on above: Order Comment: Order added by Discern Expert. Performed By: #### 1 [id number] ####ROCKY NfgUcfk2340 [place] [address] Albumin 4.0 g/dL Normal 3.2-5.0 [facility] Comment on above: Order Comment: Order added by Iftikhar Expert. Performed By: #### 1 1476251 ####ROCKY ZsaRilm7068 [place] [address] Albumin/Globulin Ratio 1.3 {ratio} Normal 1.1-1.9 [facility] Comment on above: Order Comment: Order added by Iftikhar Expert. Performed By: #### 1 0960729 ####ROCKY EosVrnt1055 [place] [address] Alk Phos 66 Int._Unit/L Normal 42-121 [facility] Comment on above: Order Comment: Order added by Iftikhar Expert. Performed By: #### 1 6941983 ####ROCKY DszMdek5005 [place] [address] Aspartate aminotransferase (AST) 26 Int._Unit/L Normal 10-42 [facility] Comment on above: Order Comment: Order added by Iftikhar Expert. Performed By: #### 1 [id number] ####ROCKY GzrWkem2140 [place] [address] Bili Direct <.10 Normal .00-.20 [facility] Comment on above: Order Comment: Order added by Iftikhar Expert. Performed By: #### 1 [id number] ####ROCKY KnnDinq6600 [place] [address] Bili Indirect >0.7 Normal [facility] Comment on above: Order Comment: Order added by Discern Expert. Result Comment: No e stablished ranges available for the Indirect Biliruben. Performed By: #### 1 [id number] ####ROCKY Pantoja1025 [place] [address] Bili Total 0.8 mg/dL Normal 0.2-1.0 [facility] Comment on above: Order Comment: Order added by Discern Expert. Performed By: #### 1 4211404 ####ROCKY UlrKkxi9370 [place] [address] Globulin 3.1 g/dL Normal 2.0-4.0 [facility] Comment on above: Order Comment: Order added by Discern Expert. Performed By: #### 1 6383144 ####ROCKY Pantoja[address]25 [place] [address] Protein 7.1 g/dL Normal 6.4-8.3 [facility] Comment on above: Order Comment: Order added by Discern Expert. Performed By: #### 1 4281255 ####ROCKY Pantoja1025 [place] [address] Troponin-Ion 05-01-2017 Troponin I.cardiac mass conc ng/mL Normal .00-. [facility] Comment on above: Performed By: #### 1 2353610 ####ROCKY Pantoja1025 [place] [address] Troponin I.cardiac mass conc 0.01 ng/mL Normal .00-.03 [facility] Comment on above: Performed By: #### 1 [id number] ####ROCKY Pantoja1025 [place] [address] Troponin I.cardiac mass conc ng/mL Normal .00-.03 [facility] Comment on above: Performed By: #### 2 155772 ####ROCKY MccoyLaiQvdl1971 [place] [address] UA Completeon 05-01-2017 UA Blood Negative Normal Negative [facility] Comment on above: Performed By: #### 1 5047717 ####ROCKY MccoyDjvPwhb9035 [place] [address] UA Clarity Clear Normal Clear [facility] Comment on above: Performed By: #### 1 2835919 ####ROCKY [address] [place] [address] UA Leuk Est Negative Normal Negative [facility] Comment on above: Performed By: #### 1 [id number] ####ROCKYLaura PantojaZrtZlzg[address]671 [place] [address] UA Mucous Trace Abnormal Trace [facility] Comment on above: Performed By: #### 1 [id number] ####ROCKY AxkEigq7294 [place] [address] UA Nitrite Negative Normal Negative [facility] Comment on above: Performed By: #### 1 [id number] ####ROCKY IxsYtzv9842 [place] [address] UA pH 9.0 High 4.6-8.0 [facility] Comment on above: Performed By: #### 1 [id number] ####ROCKYLaura [address]jaDcyChvm9322 [place] [address] UA Protein Negative Normal Negative [facility] Comment on above: Performed By: #### 1 [id number] ####[place] [address] UA Spec Grav 1.005 Normal 1.003-1.03 0 [facility] Comment on above: Performed By: #### 1 [id number] ####ROCKY EbrVlsl0554 [place] [address] UA Squam Epithelial 0-5 Normal 0-5 [facility] Comment on above: Performed By: #### 1 [id number] ####ROCKY LxcBarg9939 [place] [address] UA Urobilinogen Negative Normal [facility] Comment on above: Performed By: #### 1 [id number] ####ROCKY HcaIlch5704 [place] [address] UA WBC 0-5 Normal 0-5 [facility] Comment on above: Performed By: #### 1 [id number] ####ROCKYLaura MccoyZjoPuqj1713 [place] [address] Urine, color Straw Normal Yellow [facility] Comment on above: Performed By: #### 1 [id number] ####ROCKYLaura MccoyJxpBdny9244 [place] [address] Urine, erythrocytes 0-3 Normal 0-3 [facility] Comment on above: Performed By: #### 1 [id number] ####ROCKY MccoyKygEcsg5492 [place] [address] Urine, glucose Negative Normal Negative [facility] Comment on above: Performed By: #### 1 [id number] ####ROCKY MccoyThtMaha2326 [place] [address] Urine, ketones presence Negative Normal Negative [facility] Comment on above: Performed By: #### 1 [id number] ####ROCKY MccoyXtuEift2861 [place] [address] Urine, urobilinogen Negative Normal Negative [facility] Comment on above: Performed By: #### 1 [id number] ####ROCKY MccoyVwxIwhk0133 [place] [address] XR Chest Single Viewon 05-01 INR Coag [...] by: Tello Zelaya MD Technologist: CLAY Reeves [facility] eGFRon 05-01-2017 eGFR (non-black) mL/min/{1.73_m2} Normal [facility] Comment on above: Order Comment: Order added by Discern Expert. Performed By: #### 1 [id number] ####ROCKY GrzRpmj9940 [place] [address] CT Abdomen/Pelvis w/ Contras ton 04-17-2017 CT [...] by: Tello Zelaya MD Technologist: SLB Normal [facility] BUNon 04-14-2017 Urea nitrogen 15 mg/dL Normal 7-18 [facility] Comment on above: Performed By: #### 2 [id number] ####ROCKY MccoyPpkQezx9166 [place] [address] Creatinineon 04-14-2017 Creatinine 0.8 mg/dL Normal 0.6-1.3 [facility] Comment on above: Performed By: #### 2 [id number] ####ROCKY MccoyFftDdnh0341 [place] [address] eGFRon 04-14-2017 eGFR (non-black) mL/min/{1.73_m2} Normal [facility] Comment on above: Order Comment: Order added by Discern Expert. Performed By: #### 1 [id number] ####ROCKY [address]yxLcmj[address] [place] [id number] URINE ANUJ CULTURE-IDENTIFICA [place] ([id number])Ordered By: Pool Finisher on 03-17-2017 Bacteria identified Cx Nom (U) Klebsiella pneumoniae Abnormal Comprehens rosalind Internal Medicine Work Phone: Comment on above: Greater than 100,000 colony forming units per mL PATIENT NOT FASTINGP ERFORMED BY: Plan [employer] Funding [facility] [id number] americaAtrium Health [facility] [id number] Information: SRC:UC Bacteria identified Cx Nom (U) Final report Abnormal [facility] Work Phone: Comment on above: PATIENT NOT FASTINGP ERFORMED BY: Moblicationrp Snynff8457aXess americaAtrium Health [facility] [id number] Information: SRC:UC Other Antibiotic [Susc] MIHEAD Normal [...] PATIENT NOT FASTINGP ERFORMED BY: JEANETH [facility] Jyahif2519 [address]Dublin [place] [id number] Information: SRC:VANCE Urinalysis, Office ([id number])Or dered By: Danielle Pugh on 03-10-2017 Bilirubin [...] Medicine Work Phone: URINE ANUJ CULTURE-IDENTIFICA [place] ([id number])Ordered By: Pool Finisher on 11-06-2016 Bacteria identified Cx Nom (U) Final report Abnormal [facility] Work Phone: Comment on above: PATIENT NOT FASTINGP ERFORMED BY: Casmul [id number] GymRealmAtrium [facility] [id number] Information: SRC:VANCE Bacteria identified Cx Nom (U) [...] STrimethoprim/Sulfa S PATIENT NOT FASTINGP ERFORMED BY: Casmul Iqivqu2135 GymRealmAt[facility] [id number] Information: SRC:VANCE Urinalysis, Office ([id number])Or dered By: Mercedes Bey on 11-06-2016 Bilirubin [...] Medicine Work Phone: URINE ANUJ CULTURE-IDENTIFICA TN ([id number])Ordered By: Pool Finisher on 10-17-2016 Bacteria identified Cx Nom (U) Escherichia coli Abnormal [facility] Work Phone: Comment on above: Greater than 100,000 colony forming units per mL PATIENT NOT FASTINGP ERFORMED BY: JEANETH [facility] [id number] [facility] [id number] Information: SRC:UC Bacteria identified Cx Nom (U) Final report Abnormal [facility] Work Phone: Comment on above: PATIENT NOT FASTINGP ERFORMED BY: JEANETH [facility] [id number] [facility] [id number] Information: SRC:UC Other Antibiotic [Susc] MIHEAD Normal [...] PATIENT NOT FASTINGP ERFORMED BY: JEANETH [facility] Lrhdrb9[address] [place] [id number] Information: SRC:VANCE Urinalysis, Office ([id number])Or dered By: Tamara Landin on 10-17-2016 Bilirubin [...] Work Phone: Fecal Occult Blood , Office ([id number])Ordered By: Jayesh Bejarano on 05-15-2016 Hemoglobin.gastroin testinal Ql (Stl) Negative Normal [facility] Work Phone: Hemoglobin.gastroin testinal Ql (Stl) Negative Normal [facility]; [facility] Work Phone: Metabolic Panel, Comprehensi ve ([id number])Ordered By: Pool Finisher on 05-15-2016 Albumin [Mass/Vol] 4.6 g/dL Normal 3.5-4.[address] [facility] Internal Medicine Work Phone: Comment on above: PATIENT NOT FASTINGP ERFORMED BY: CB [facility] Iiecmj7067 [address]Dublin [place] [id number] Albumin/Globulin [Mass ratio] 1.6 {ratio} Normal 1.1-2.5 [facility] Work Phone: Comment on above: PATIENT NOT FASTINGP ERFORMED BY: CB [facility] Sfvuhl3203 [address]Dublin [place] [id number] ALP [Catalytic activity/Vol] 77 [iU]/L Normal 39-117 [facility] Work Phone: Comment on above: PATIENT NOT FASTINGP ERFORMED BY: CB [facility] Oyplwx0670 [address]Dublin [place] [id number] ALP [Catalytic activity/Vol] 77 U/L Normal 39-117 [facility]; [facility] Work Phone: Comment on above: PATIENT NOT FASTINGP ERFORMED BY: CB [facility] Ievqhc6200 [address]Dublin [place] [id number] ALT [Catalytic activity/Vol] 17 [iU]/L Normal 0-32 [facility] Work Phone: Comment on above: PATIENT NOT FASTINGP ERFORMED BY: CB [facility] Nqvork0928 [address]Dublin [place] [id number] ALT [Catalytic activity/Vol] 17 U/L Normal 0-32 [facility]; [facility] Work Phone: Comment on above: PATIENT NOT FASTINGP ERFORMED BY: CB [facility] Ktxfyj0282 [address] RoadDublin [place] [id number] AST [Catalytic activity/Vol] 28 [iU]/L Normal 0-40 [facility] Work Phone: Comment on above: PATIENT NOT FASTINGP ERFORMED BY: JEANETH [facility] Rfxsen5522 [address]Dublin [place] [id number] AST [Catalytic activity/Vol] 28 U/L Normal 0-40 [facility]; [facility] Work Phone: Comment on above: PATIENT NOT FASTINGP ERFORMED BY: CB [facility] Vjwznd4183 [address]Dublin [place] [id number] Bilirubin [Mass/Vol] 0.5 mg/dL Normal 0.0-1.2 [facility] Work Phone: Comment on above: PATIENT NOT FASTINGP ERFORMED BY: CB [facility] Ezsspc3589 [address]Dublin [place] [id number] Calcium [Mass/Vol] 9.6 mg/dL Normal 8.7-10.[address] [facility] Internal Medicine Work Phone: Comment on above: PATIENT NOT FASTINGP ERFORMED BY: CB [facility] Sevjwe8582 [address]blin [place] [id number] Chloride [Moles/Vol] 102 mmol/L Normal 96-106 [facility] Work Phone: Comment on above: PATIENT NOT FASTINGP ERFORMED BY: CB [facility] Ohjjav1000 [address]Dublin [place] [id number] CO2 [Moles/Vol] 23 mmol/L Normal 18-29 [facility] Internal Medicine Work Phone: Comment on above: PATIENT NOT FASTINGP ERFORMED BY: CB [facility] Jcmfrj5069 [address] RoadDublin [place] [id number] Creatinine [Mass/Vol] 0.85 mg/dL Normal 0.57-1.00 [facility] Internal Medicine Work Phone: Comment on above: PATIENT NOT FASTINGP ERFORMED BY: CB [facility] Jllagj2595 [address]Dublin [place] [id number] GFR/1.73 sq M predicted among blacks CKD-EPI (S/P/Bld) [Vol rate/Area] 78 mL/min/1.73 Normal [facility] Work Phone: Comment on above: PATIENT NOT FASTINGP ERFORMED BY: CB [facility] Huondk4867 [address]Dublin [place] [id number] GFR/1.73 sq M predicted among non-blacks CKD-EPI (S/P/Bld) [Vol rate/Area] 67 mL/min/1.73 Normal [facility] Work Phone: Comment on above: PATIENT NOT FASTINGP ERFORMED BY: CB [facility] Svprmv2976 [address]Dublin [place] [id number] Globulin (S) [Mass/Vol] 2.9 g/dL Normal 1.5-4.5 [facility] Work Phone: Comment on above: PATIENT NOT FASTINGP ERFORMED BY: CB [facility] Bddslu6899 [address]Dublin [place] [id number] Glucose [Mass/Vol] 92 mg/dL Normal 65-[address] [facility] Internal Medicine Work Phone: Comment on above: PATIENT NOT FASTINGP ERFORMED BY: CB [facility] Yatxyx0552 [address]Dublin [place] [id number] Potassium [Moles/Vol] 4.4 mmol/L Normal 3.5-5.2 [facility] Work Phone: Comment on above: PATIENT NOT FASTINGP ERFORMED BY: CB [facility] Nhdcrf2981 [address]Dublin [place] [id number] Protein [Mass/Vol] 7.5 g/dL Normal 6.0-8.[address] [facility] Internal Medicine Work Phone: Comment on above: PATIENT NOT FASTINGP ERFORMED BY: CB [facility] Tvbyhj6902 [address] RoadDublin [place] [id number] Sodium [Moles/Vol] 142 mmol/L Normal 134-[address] [facility] Internal Medicine Work Phone: Comment on above: PATIENT NOT FASTINGP ERFORMED BY: CB [facility] Xsuhvh9917 [address]Dublin [place] [id number] Urea nitrogen [Mass/Vol] 18 mg/dL Normal 8-27 [facility] Work Phone: Comment on above: PATIENT NOT FASTINGP ERFORMED BY: [facility] Ynctrg8180 [facility] [id number] Urea nitrogen/Creatinine [Mass ratio] 21 mg/mg Normal - [facility] Work Phone: Comment on above: PATIENT NOT FASTINGP ERFORMED BY: [facility] Gkzgyq9105 [facility] [id number] Urinalysis, Office ([id number])Or dered By: Danielle Pugh on 05-15-2016 Bilirubin [...] Medicine Work Phone: URINE ANUJ CULTURE-IDENTIFICA [place] ([id number])Ordered By: Pool Finisher on 12-12-2015 Bacteria identified Cx Nom (U) MUG Normal [facility] Work Phone: Comment on above: Mixed urogenital nita ra10,000-25,000 colony forming units per mL PATIENT NOT FASTINGP ERFORMED BY: [facility] Sjmrma7712 GymRealmAtrium Health [facility] [id number] Information: SRC:VANCE Bacteria identified Cx Nom (U) Final report Normal [facility] Work Phone: Comment on above: PATIENT NOT FASTINGP ERFORMED BY: LabAito BVrp Wntvhi4227 GymRealmAtrium Health [facility] [id number] Information: SRC:VANCE Urinalysis, Office ([id number])on 12-12-2015 Bilirubin Ql (U) Negative Normal Comprehe [...] URINE ANUJ CULTURE-LUIS EDUARDO COL C OUNT ([id number])Ordered By: Pool Finisher on 12-06-2015 Bacteria identified Cx Nom (U) MUG Normal [facility] Work Phone: Comment on above: Mixed urogenital nita ra10,000-25,000 colony forming units per mL PATIENT NOT FASTINGP ERFORMED BY: [facility] UniversityAt[facility] [id number] Information: [id number] SRC:VANCE Bacteria identified Cx Nom (U) Final report Normal [facility] Work Phone: Comment on above: PATIENT NOT FASTINGP ERFORMED BY: LabAito BVrp [employer] [place] [id number] Information: [id number] SRC:VANCE Urinalysis, Office ([id number])Or dered By: Mellisa Salguero on 12-06-2015 Bilirubin [...] Medicine Work Phone: URINE ANUJ CULTURE-IDENTIFICA TN ([id number])Ordered By: Pool Finisher on 11-23-2015 Bacteria identified Cx Nom (U) Escherichia coli Abnormal [facility] Work Phone: Comment on above: Greater than 100,000 colony forming units per mL PATIENT NOT FASTINGP ERFORMED BY: vMobo [facility] [id number] Information: [id number] Bacteria identified Cx Nom (U) Final report Abnormal [facility] Work Phone: Comment on above: PATIENT NOT FASTINGP ERFORMED BY: WeoGeoAt[facility] [id number] Information: [id number] Other Antibiotic [Susc] MIHEAD Normal [facility] [...] PATIENT NOT FASTINGP ERFORMED BY: JEANETH [facility] Xqqaiv3348 [address] RoadDublin [place] [id number] Information: [id number] Urinalysis, Office ([id number])on 11-23-2015 Bilirubin Ql (U) Negative Normal Comprehe [...] OCT MACULA CIRRUS OU (BOTH E YES) [facility] Vital Signs Date Time Vital Sign Value Performing Clinician Facility 02-26-2024 11:53-0500 Body height 165.1 cm Tadeo Napoles MD Work Phone: [facility] 02-26-2024 11:53-0500 Body mass index (BMI) [Ratio] 21.13 kg/m2 Tadeo Napoles MD Work Phone: [facility] 02-26-2024 11:53-0500 Body weight 57.61 kg Tadeo Napoles MD Work Phone: [facility] 02-26-2024 11:53-0500 Diastolic blood pressure 89 mm[Hg] Tadeo Napoles MD Work Phone: [facility] 02-26-2024 11:53-0500 Heart rate 80 /min Tadeo Napoles MD Work Phone: [facility] 02-26-2024 11:53-0500 Systolic blood pressure 170 mm[Hg] Tadeo Napoles MD Work Phone: [facility] 07-08-2023 13:09-0400 Body height 165.1 cm Federico Jade MD Work Phone: [facility] 07-08-2023 13:09-0400 Body weight 65.32 kg Federico Jade MD Work Phone: [facility] 07-08-2023 13:09-0400 Diastolic blood pressure 91 mm[Hg] Federico Jade MD Work Phone: [facility] 07-08-2023 13:09-0400 Heart rate 77 /min Federico Jade MD Work Phone: [facility] 07-08-2023 13:09-0400 SaO2% (BldA) [Mass fraction] 98 % Federico Jade MD Work Phone: [facility] 07-08-2023 13:09-0400 Systolic blood pressure 153 mm[Hg] Federico Jade MD Work Phone: [facility] 12-05-2022 13:29-0400 Body height 165.1 cm KELBY Armando MIKE [facility]; [facility] Work Phone: 12-05-2022 13:29-0400 Body mass index (BMI) [Ratio] 25.13 kg/m2 KELBY Armando MIKE [facility]; [facility] [...] 10:10-0400 Body height 165.1 cm Mellisa Slarb [employer] WORK[employer] [facility]; [facility] Work Phone: 11-20-2022 10:10-0400 Body mass index (BMI) [Ratio] 25.21 kg/m2 Mellisa Slarb [employer] WORK[employer] [facility]; [facility] Work Phone: 11-20-2022 10:10-0400 Body surface area Derived from formula 1.76 m2 Mellisa Slarb [employer] WORK[employer] [facility]; [facility] Work Phone: 11-20-2022 10:10-0400 Body temperature 98.7 [degF] Mellisa Slarb [employer] WORK[employer] [facility]; [facility] Work Phone: Comment on above: Method: Temporal 11-20-2022 10:10-0400 Body weight 68.72 kg Mellisa Slarb [employer] WORK[employer] [facility]; [facility] Work Phone: 11-20-2022 10:10-0400 Diastolic blood pressure 80 mm[Hg] Mellisa Slarb [employer] WORK[employer] [facility]; [facility] Work Phone: Comment on above: Patient Position: Sitting; Cuff Location : Left Arm; Cuff Size: Standard 11-20-2022 10:10-0400 Heart rate 67 /min Mellisa Slarb [employer] WORK[employer] [facility]; [facility] Work Phone: Comment on above: Pattern: Regular 11-20-2022 10:10-0400 Respiratory rate 17 /min Mellisa Slarb [employer] WORK[employer] [facility]; [facility] Work Phone: Comment on above: Pattern: Unlabored 11-20-2022 10:10-0400 SaO2% (BldA) [Mass fraction] 98 % Mellisa Slarb [employer] WORK[employer] [facility]; [facility] Work Phone: Comment on above: Room air 11-20-2022 10:10-0400 Systolic blood pressure 124 mm[Hg] Mellisa Slarb [employer] WORK[employer] [facility]; [facility] Work [...] Steve DO Work Phone: [facility]; [facility] Internal Medicine Work Phone: Comment on above: Patient Position: Sitting hi stress -- caregiv er for 05-01-2020 10:38-0500 Body height 165.1 cm [facility]; [facility] Work Phone: 05-01-2020 10:38-0500 Body mass index (BMI) [Ratio] 25.21 kg/m2 [facility]; [facility] Work Phone: 05-01-2020 10:38-0500 Body surface area Derived from formula 1.76 m2 [facility]; [facility] Work Phone: 05-01-2020 10:38-0500 Body weight 68.72 kg [facility]; [facility] Work Phone: 02-10-2020 13:43-0500 BMI (Body Mass Index) 25.21 kg/m2 Estelita Roth [facility] Internal Medicine Work Phone: 02-10-2020 13:43-0500 Body Temperature 97.7 [degF] Estelita Roth [facility] Internal Medicine Work Phone: Comment on above: Method: Temporal 02-10-2020 13:43-0500 Body weight 68.72 kg Estelita Roth [facility] Internal Medicine Work Phone: 02-10-2020 13:43-0500 BP Diastolic 96 mm[Hg] Estelita Roth [employer] [facility] Internal Medicine Work Phone: Comment on above: Patient Position: Sitting; Cuff Location : Left Arm; Cuff Size: Standard 02-10-2020 13:43-0500 BP Systolic 161 mm[Hg] Estelita Roth [facility] Internal Medicine Work Phone: Comment on above: Patient Position: Sitting; Cuff Location : Left Arm; Cuff Size: Standard 02-10-2020 13:43-0500 BSA (Body Surface Area) 1.76 m2 Estelita Roth [facility] Internal Medicine Work Phone: 02-10-2020 13:43-0500 Height 165.1 cm Estelita Roth [facility] Internal Medicine Work Phone: 02-10-2020 13:43-0500 Pulse (Heart Rate) 96 /min [facility]elita [facility] Work Phone: Comment on above: Pattern: Regular 02-10-2020 13:43-0500 Pulse Oximetry 95 % Andria Sylvain [facility] Internal Medicine Work Phone: Comment on above: Room air 02-10-2020 13:43-0500 Respiratory Rate 16 /min Estelita Roth [facility] Internal Medicine Work Phone: Comment on above: Pattern: Unlabored 02-10-2020 13:43-0500 SaO2% (BldA) [Mass fraction] 95 % Estelitasurya Roth [facility] Internal Medicine; [facility] Internal Medicine Work Phone: Comment on above: Room air 01-20-2020 09:43-0400 BMI (Body Mass Index) 25.21 kg/m2 Lily Acuña [facility] Internal Medicine Work Phone: 01-20-2020 09:43-0400 Body Temperature 96.8 [degF] Lily Acuña [facility] Work Phone: Comment on above: Method: Thermal Scan 01-20-2020 09:43-0400 Body weight 68.72 kg Lily Acuña [facility] Work Phone: 01-20-2020 09:43-0400 BP Diastolic 101 mm[Hg] Lily Acuña [facility] Work Phone: Comment on above: Patient Position: Sitting; Cuff Location : Left Arm; Cuff Size: Standard 01-20-2020 09:43-0400 BP Systolic 158 mm[Hg] Lily Domenico [facility] Internal Medicine Work Phone: Comment on above: Patient Position: Sitting; Cuff Location : Left Arm; Cuff Size: Standard 01-20-2020 09:43-0400 BSA (Body Surface Area) 1.76 m2 Lily Domenico [facility] Internal Medicine Work Phone: 01-20-2020 09:43-0400 Height 165.1 cm Lily Domenico [facility] Internal Medicine Work Phone: 01-20-2020 09:43-0400 Pulse (Heart Rate) 94 /min Lily Acuña [facility] [address] Comprehensiv e Internal Medicine Work Phone: Comment on above: Pattern: Regular 01-20-2020 09:43-0400 Pulse Oximetry 98 % Andria Steve [facility] Internal Medicine Work Phone: Comment on above: Room air 01-20-2020 09:43-0400 Respiratory Rate 18 /min Lily Domenico [facility] Work Phone: Comment on above: Pattern: Unlabored 01-20-2020 09:43-0400 SaO2% (BldA) [Mass fraction] 98 % Lily Domenico [facility]; [facility] Work Phone: Comment on above: Room air 04-08-2019 14:17-0500 BMI (Body Mass Index) 25.54 kg/m2 Estelita Roth [facility] Internal Medicine Work Phone: 04-08-2019 14:17-0500 Body Temperature 97.2 [degF] Estelitasurya Roth [facility] Internal Medicine Work Phone: Comment on above: Method: Temporal 04-08-2019 14:17-0500 Body weight 69.63 kg Estelita Roth LPN [facility] Work Phone: 04-08-2019 14:17-0500 BP Diastolic 98 mm[Hg] Estelita Roth LPN [facility] Work Phone: Comment on above: Patient Position: Sitting; Cuff Location : Left Arm; Cuff Size: Standard 04-08-2019 14:17-0500 BP Systolic 140 mm[Hg] Estelita Roth LPN [facility] Internal Medicine Work Phone: Comment on above: Patient Position: Sitting; Cuff Location : Left Arm; Cuff Size: Standard 04-08-2019 14:17-0500 BSA (Body Surface Area) 1.77 m2 Estelita Roth LPN [facility] Internal Medicine Work Phone: 04-08-2019 14:17-0500 Height 165.1 cm Estelita Roth LPN [facility] Internal Medicine Work Phone: 04-08-2019 14:17-0500 Pulse (Heart Rate) 86 /min [facility] Work Phone: Comment on above: Pattern: Regular 04-08-2019 14:17-0500 Pulse Oximetry 96 % Andria Steve [facility] Internal Medicine Work Phone: Comment on above: Room air 04-08-2019 14:17-0500 Respiratory Rate 16 /min Estelita Roth LPN [facility] Internal Medicine Work Phone: Comment on above: Pattern: Unlabored 04-08-2019 14:17-0500 SaO2% (BldA) [Mass fraction] 96 % Estelita Roth LPN [facility]; [facility] Work Phone: Comment on above: Room air 10-12-2018 13:08-0400 BMI (Body Mass Index) 26.33 kg/m2 Melissa Navarro [facility] Internal Medicine Work Phone: 10-12-2018 13:08-0400 Body Temperature 97 [degF] Melissa Navarro [facility] Internal Medicine Work Phone: Comment on above: Method: Oral 10-12-2018 13:08-0400 Body weight 71.78 kg Melissa Navarro [facility] Internal Medicine Work Phone: 10-12-2018 13:08-0400 BP Diastolic 82 mm[Hg] Melissa Navarro [facility] Internal Medicine Work Phone: Comment on above: Patient Position: Sitting; Cuff Location : Left Arm; Cuff Size: Standard 10-12-2018 13:08-0400 BP Systolic 124 mm[Hg] Melissa Navarro [facility] [facility] Internal Medicine Work Phone: Comment on above: Patient Position: Sitting; Cuff Location : Left Arm; Cuff Size: Standard 10-12-2018 13:08-0400 BSA (Body Surface Area) 1.79 m2 Melissa Navarro [facility] Internal Medicine Work Phone: 10-12-2018 13:08-0400 Height 165.1 cm Melissa Navarro [facility] Internal Medicine Work Phone: 10-12-2018 13:08-0400 Pulse (Heart Rate) 64 /min Melissa Navarro [facility] Internal Medicine Work Phone: Comment on above: Pattern: Regular 10-12-2018 13:08-0400 Pulse Oximetry 97 % Andria Sylvain [facility] Work Phone: Comment on above: Room air 10-12-2018 13:08-0400 Respiratory Rate 18 /min Melissa Navarro [facility] Internal Medicine Work Phone: Comment on above: Pattern: Unlabored 10-12-2018 13:08-0400 SaO2% (BldA) [Mass fraction] 97 % Melissa Navarro [facility] Internal Medicine; [facility] [...] Phone: 11-06-2016 08:59-0400 Body weight 72.63 kg Danielel Pugh CMA [facility] Work Phone: 11-06-2016 08:59-0400 BP Diastolic 78 mm[Hg] Danielle Pugh CMA [facility] Work Phone: Comment on above: Patient Position: Sitting; Cuff Location : Left Arm; Cuff Size: Standard 11-06-2016 08:59-0400 BP Systolic 122 mm[Hg] Danielle Pugh [facility] Medicine Work Phone: Comment on above: Patient Position: Sitting; Cuff Location : Left Arm; Cuff Size: Standard 11-06-2016 08:59-0400 BSA (Body Surface Area) 1.8 m2 Daniellemendel Pugh [facility] Internal Medicine Work Phone: 11-06-2016 08:59-0400 Height 165.1 cm [facility] Work Phone: 11-06-2016 08:59-0400 Pulse (Heart Rate) 69 /min [facility] Work Phone: Comment on above: Pattern: Regular 11-06-2016 08:59-0400 Pulse Oximetry 96 % Andria Steve [facility] Internal Medicine Work Phone: Comment on above: Room air 11-06-2016 08:59-0400 Respiratory Rate 16 /min [facility] Work Phone: Comment on above: Pattern: Unlabored 11-06-2016 08:59-0400 SaO2% (BldA) [Mass fraction] 96 % [facility]; [facility] Work [...] 10:23-0400 BMI (Body Mass Index) 28.52 kg/m2 [facility] Internal Medicine Work Phone: Comment on above: but just took tramadol 08-08-2016 10:23-0400 Body Temperature 98 [degF] [facility] Internal Medicine Work Phone: Comment on above: but just took tramadol 08-08-2016 10:23-0400 Body weight 77.74 kg [facility] Internal Medicine Work Phone: Comment on above: but just took tramadol 08-08-2016 10:23-0400 BP Diastolic 76 mm[Hg] [facility] Internal Medicine Work Phone: Comment on above: Patient Position: Sitting; Cuff Location : Left Arm; Cuff Size: Standard but just took tramad ol 08-08-2016 10:23-0400 BP Systolic 132 mm[Hg] [facility] Internal Medicine Work Phone: Comment on above: Patient Position: Sitting; Cuff Location : Left Arm; Cuff Size: Standard but just took tramad ol 08-08-2016 10:23-0400 BSA (Body Surface Area) 1.85 m2 [facility] Work Phone: Comment on above: but just took tramadol 08-08-2016 10:23-0400 [facility].1 cm [facility] Internal Medicine Work Phone: Comment on above: but just took tramadol 08-08-2016 10:23-0400 Pulse (Heart Rate) 88 /min [facility] Internal Medicine Work Phone: Comment on above: Pattern: Regular but just took tramad ol 08-08-2016 10:23-0400 Pulse Oximetry 99 % Andria Steve [facility] Internal Medicine Work Phone: Comment on above: Room air but just took tramad ol 08-08-2016 10:23-0400 Respiratory Rate 16 /min [facility] Internal Medicine Work Phone: Comment on above: Pattern: Unlabored but just took tramad ol 08-08-2016 10:23-0400 SaO2% (BldA) [Mass fraction] 99 % [facility] Internal Medicine; [facility] Work [...] (Body Mass Index) 28.62 kg/m2 Mellisa Rafarb [employer] [facility] Work Phone: 05-15-2016 13:05-0500 Body Temperature 98.2 [degF] Mellisa Rafarb [employer] [facility] Work Phone: 05-15-2016 13:05-0500 Body weight 78.02 kg Mellisa Rafarb [employer] [facility] Work Phone: 05-15-2016 13:05-0500 BP Diastolic 82 mm[Hg] Mellisa Slarb [employer] [facility] Work Phone: Comment on above: Patient Position: Sitting; Cuff Location : Left Arm; Cuff Size: Standard 05-15-2016 13:05-0500 BP Systolic 128 mm[Hg] Mellisa Slarb [employer] [facility] Work Phone: Comment on above: Patient Position: Sitting; Cuff Location : Left Arm; Cuff Size: Standard 05-15-2016 13:05-0500 BSA (Body Surface Area) 1.86 m2 Mellisa Slarb [employer] [facility] Work Phone: 05-15-2016 13:05-0500 [...] (Body Mass Index) 28.35 kg/m2 Danielle Pugh [facility] Medicine Work Phone: 12-12-2015 09:08-0400 Body Temperature 97.6 [degF] Danielle Pugh [facility] Medicine Work Phone: Comment on above: Method: Temporal 12-12-2015 09:08-0400 Body weight 77.28 kg Danielle Pugh [facility] Work Phone: 12-12-2015 09:08-0400 BP Diastolic 80 mm[Hg] Danielle Pugh [facility] Work Phone: Comment on above: Patient Position: Sitting; Cuff Location : Left Arm; Cuff Size: Standard 12-12-2015 09:08-0400 BP Systolic 130 mm[Hg] Danielle Pugh [facility] Work Phone: Comment on above: Patient Position: Sitting; Cuff Location : Left Arm; Cuff Size: Standard 12-12-2015 09:08-0400 BSA (Body Surface Area) 1.85 m2 Danielle Pugh [facility] Work Phone: 12-12-2015 09:08-0400 Height 165.1 cm Danielle Pugh [facility] Internal Medicine Work Phone: 12-12-2015 09:08-0400 Pulse (Heart Rate) 73 /min Danielle Pugh [facility] Internal Medicine Work Phone: Comment on above: Pattern: Regular 12-12-2015 09:08-0400 Pulse Oximetry 98 % Andria Steve [facility] Internal Medicine Work Phone: Comment on above: Room air 12-12-2015 09:08-0400 Respiratory Rate 16 /min Danielle Pugh [facility] Medicine Work Phone: Comment on above: Pattern: Unlabored 12-12-2015 09:08-0400 SaO2% (BldA) [Mass fraction] 98 % Danielle Pugh [facility]; [facility] Work Phone: Comment on above: Room air 12-06-2015 13:17-0400 Pulse Oximetry 98 % Andria Steve [facility] Internal Medicine Work Phone: [...] 12-06-2015 12:23-0400 Pulse Oximetry 92 % Andria Steve [facility] Work [...] 11-23-2015 09:45-0400 Pulse Oximetry 97 % Andria Steev [facility] Work Phone: Comment on [...] abnormal findings Andria Steve [facility] Start: 02-16-2025 End: 02-16-2025 ambulatory Andriablas Steve Facility:[facility] Start: 10-26-2024 ambulatory Andriablas Steve Facilit y:[facility] Start: 10-20-2024 ambulatory ANDRIA STEVE Facility:[facility] Start: 10-20-2024 End: 10-20-2024 Subsequent hospital visit by physician [employer] [employer] [facility] (I-Stat/1.5t) Work Phone: Radiology Start: 08-03-2024 End: 08-06-2024 Evaluation and management of inpatient Andria Steve Facility:[facility] Start: 08-03-2024 ambulatory Andria Steve Facilit y:[facility] Start: 05-14-2024 End: 05-17-2024 Refill Tadeo Napoles MD Work Phone: [facility] Start: 02-26-2024 End: 02-26-2024 Office outpatient new 45 minutes Tadeo Napoles MD Work Phone: [facility] Comment on above: Idiopathic neuropath y (Primary Dx); Restless legs syndrome with nocturnal myoclonus; Sleep related leg cramps; Fatigue, unspecified type Start: 02-26-2024 End: 02-26-2024 ambulatory [facility] Start: 07-08-2023 End: 07-08-2023 Patient encounter procedure Federico Jade MD Work Phone: General Surgery Comment on above: SBO (small bowel obs truction) (HCC) (Primary Dx) Start: 06-16-2023 End: 06-19-2023 Evaluation and management of inpatient MAXINE KALEIGH Facility[facility] Start: 06-16-2023 End: 06-16-2023 Emergency department patient visit ANDRIA STEVE Facility:[facility] Start: 02-24-2023 End: 02-24-2023 ambulatory [facility] Work Phone: Start: 02-24-2023 End: 02-24-2023 Patient encounter procedure [facility] Work Phone: Start: 02-21-2023 End: 02-21-2023 ambulatory [facility] Work Phone: Start: 02-21-2023 End: 02-21-2023 Patient encounter procedure [facility]-MRI - [facility] Work Phone: Start: 02-04-2023 End: 02-04-2023 ambulatory [facility] Work Phone: Start: 02-04-2023 End: 02-04-2023 Patient encounter procedure [facility]-Cat Scan, [facility] Work Phone: Start: 01-14-2023 End: 01-14-2023 ambulatory [facility] Work Phone: Start: 01-14-2023 End: 01-14-2023 Patient encounter procedure [facility]-Ultrasound, [facility] Work Phone: Start: 12-16-2022 End: 12-16-2022 [...] 11-20-2022 End: 11-20-2022 ambulatory [facility] Work Phone: Start: 11-20-2022 End: 11-20-2022 Patient encounter procedure [facility]-Laboratory, Specimen Work Phone: Start: 11-20-2022 Review Andria Ascencioo n DO Work Phone: [facility] Start: 11-20-2022 End: 11-20-2022 Office outpatient visit 15 minutes Andria Sylvain DO Work Phone: [facility] Start: 10-23-2022 End: 10-23-2022 Annotation/Addendum Andria Steve DO Work Phone: [facility] [...] 01-25-2020 End: 01-25-2020 Annotation/Addendum Andria Sylvain [facility]urement Officer al Medicine Start: 01-20-2020 End: 01-20-2020 Office outpatient visit 15 minutes Andria Steve [facility] Start: 01-20-2020 Review Andria Steve Compreh ensive Internal Medicine Start: 04-19-2019 End: 04-19-2019 Phone Encounter Andria Sylvain [facility] Procurement Officer al Medicine Start: 04-08-2019 End: 04-08-2019 Office outpatient visit 25 minutes Andria Steve [facility] Start: 10-13-2018 End: 10-14-2018 Phone Encounter Andria Levin Chief Procurement Officer al Medicine Start: 10-12-2018 End: 10-12-2018 Office outpatient visit 15 minutes Andria Levin Internal Medicine Start: 01-20-2018 End: 01-20-2018 Annotation/Addendum Andria Levin Chief Procurement Officer al Medicine Start: 12-18-2017 End: 12-18-2017 Phone Encounter Andria Sylvain Levin Chief Procurement Officer al Medicine Start: 05-09-2017 End: 05-09-2017 Ambulatory [place] R Stefre [place] [facility] Start: 05-05-2017 End: 05-06-2017 Ambulatory Santos R Santos Facility:[facility] Start: 05-01-2017 End: 05-02-2017 Ambulatory Andria Steve Facility:[facility] Start: 05-01-2017 End: 05-01-2017 Ambulatory Santos Monae Santos Facility:[facility] DO Start: 04-16-2017 End: 04-17-2017 Ambulatory Santos R Stefre Facility:[facility] Start: 04-14-2017 End: 04-15-2017 Ambulatory Santos R Stefre Facility:[facility] Start: 04-09-2017 End: 04-10-2017 Ambulatory Santos R Santos Facility:[facility] Santos Start: 03-21-2017 End: 03-21-2017 Phone Encounter Andria Levin Chief Procurement Officer al Medicine Start: 03-10-2017 End: 03-10-2017 Office outpatient visit 40 minutes Andria Levin Internal Medicine Start: 01-16-2017 End: 01-16-2017 Ambulatory Scott Mares Facility:[facility] Start: 11-06-2016 End: 11-06-2016 Office outpatient visit [...] Office outpatient visit 5 minutes Andriablas Ascencioon [facility] Internal Medicine Start: 12-29-2015 End: 12-29-2015 [...] 12-01-2015 End: 12-01-2015 Phone Encounter Andriablas Ascencioon [facility] Chief Procurement Officer al Medicine Start: 11-23-2015 End: 11-23-2015 Patient encounter procedure Andria Sylvain [facility] Patient encounter procedure Lily Acuña [facility]; [facility] Work Phone: Patient encounter procedure Aliciarhina Ingram [facility]; [facility] Work Phone: Patient encounter procedure Mellisalaura Salguero [facility]; [facility] Work Phone: Patient encounter procedure KELBY Tr [facility]; [facility] Work Phone: Procedures Date Procedure Procedure Detail Performing Clinician Start: 02-21-2023 MRI of abdomen with contrast Start: 02-04-2023 Computed tomography of abdomen and pelvis with contrast Start: 01-14-2023 End: 01-14-2023 Kidney and Bladder Procedure Note: See Note; NOTES: [facility] Imaging Services [address] [place] [address] Kidney and Bladder MR#: [id number] Acct: [id number] Name: MARY LI Rep #: [id number] : 1940 F 82 From: Isidro Mauro MD PCP: Dr. Andria Steve, DO Status: REG CLI Study: Kidney and Bladder Date of Exam: 01/14/23 Exam# [id number] Ordering Dr: Evonne Lara MD 2:[id number] EXAM: US RETROPERITONEAL LIMITED, RENAL CLINICAL INDICATION: [...] Evonne Lara MD; Dr. Andria Steve DO Lab Nurse: Signed Evonne Lara Work Phone: Start: 01-14-2023 US urinary tract Start: 07-13-2021 Computerized ophthalmic imaging retina Leatha Cassidy OD Work Phone: Start: 04-14-2019 End: 04-14-2019 Surgery Visit Report Comments: See Note; NOTES: [facility] [address] [place] [address]. [address] [place] [address] OFFICE VISIT Date of Service: 04/12/19 MR#: [id number] Acct: [id number] Name: MARY LI Rep #: [id number] : 1940 Provider: Kasia Petit MD Age/Sex: 78/F Location: [facility] Status: Signed Intake Vital Signs04/12/19 BMI 25.7 04/12/19 Pulse 75 04/12/19 Pulse Oximetry (%) 99 Intake Visit Reasons: PAIN/CONSTIPATION Chief Complaint: emesis/bloating Travel Registered Nurse Icu Required: No Is patient in pain?: No [...] Patient did have a repeat scope in [place] at about 2 to 3 weeks ago [...] and coordinating care. Kasia Petit M.D. Pager: [phone] [facility] [address] [place] [address], [address] [place] [address] Office: [phone] Medications New: Plan Detail Follow Up We [...] Surgery Visit Report Comments: See Note; NOTES: [facility] [address] [place] [address] [address] [place], [place] [id number] OFFICE VISIT Date of Service: 01/13/19 MR#: [id number] Acct: [id number] Name: GEETHAJOSÉ MIGUELMARY Laura Rep #: [id number] : 1940 Provider: Kasia Petit MD Age/Sex: 78/F Location: [facility] Status: Signed Intake Vital Signs01/13/19 Body Mass Index (BMI) 25.7 01/13/19 Blood Pressure 147/91 H Intake Visit Reasons: Vomiting on and off since sx Chief Complaint: vomiting/ diarrhea Travel Registered Nurse Icu Required: No Is patient in pain?: No [...] within normal limits. Kasia Petit M.D. Pager: [phone] [facility] [address] [place] [address], [address] [place] [address] Office: [phone] Orders Orders: Plan Detail Follow Up 1-2 weeks Coding Level of Care Code Global Post Op Diagnoses Hx laparoscopic cholecystectomy Z90.49 Nausea AND vomiting R11.2 Abdominal bloating R14.0 01/15/19 1230 <Electronically signed by Kasia Petit MD> Date Kasia Petit MD Cosigner Signature: Date (if applicable) CC: Andria Rogers Start: 11-12-2018 End: 11-12-2018 Operative Report Comments: See Note; NOTES: [facility] Medical Records Department [address] [place] [address] Operative Report 11/11/18 1315 MR#: [id number] Acct: [id number] Name: MARY LI Rep #: [id number] : 1940 78 From: Kasia Petit MD PCP: Andria Steve DO Status: [facility] Y Location: [facility] Report of Operation Date of Procedure: 11/11/18 Pre-Operative Diagnosis: Biliary dyskinesia Post-Operative Diagnosis: Same Surgery/Procedure Performed:: Laparoscopic cholecystectomy with cholangiogram hemmer chainstitch: Velma Cheney Type of Anesthesia:: General/Supplemental Anesthesiologist: [...] 12 mm trocar was closed with a [id number] 0 Vicryl suture. The skin was closed [...] 11-11-2018 Discharge Instruction Comments: See Note; NOTES: [facility] Medical Records Department [address] [place] [address] Instructions for Home/Discharge Instructions 11/11/18 1322 MR#: [id number] Acct: [id number] Name: MARY LI Rep #: [id number] : 1940 78 From: Kasia Petit MD PCP: Andria Steve DO Status: REG [facility] Discharge Diet: Light diet - advance as [...] PRN Reason: Pain Transmission Status: Sent to [facility]wiki #69 Primary Care Physician: Andria Steve DO [Primary Care Provider] - Test Results: Test results from this visit will be discussed in further detail at your follow-up appointment, if applicable. Please Follow Up With: Kasia Petit MD - After 5 PM and on the weekends call [phone] with any concerns When: Call the office for follow-up appointment in 2 weeks. Proposed Discharge Date: 11/11/18 11/11/18 0874 <Electronically signed by Kasia Petit MD> Date Kasia Petit MD CC: Andria Steve DO Signed Andria Steve Start: 11-11-2018 End: 11-11-2018 History and Physical Exam Comments: See Note; NOTES: [facility] Medical Records Department [address] [place] [address] History and Physical 11/11/18 1128 MR#: [id number] Acct: [id number] Name: MARY LI Rep #: [id number] : 1940 78 From: Kasia Petit MD PCP: Andria Steve DO Status: REG [facility] Y Location: [place] [address] History and Physical Date of Admission: 11/11/18 Intake Vital Signs 11/02/18 Body Mass Index (BMI) 26.6 Intake Visit Reasons: F/U Test Results HIDA Scan Chief Complaint: RUQ pain, second opinion Travel Registered Nurse Icu Required: No Is patient in pain?: No [...] BID #28 tab 07/17/19 [Rx Confirmed 11/02/18] [facility] Medical History Gallbladder polyp (Acute) Cholesterolosis (Acute) Acid reflux (Acute) Diarrhea (Acute) Nausea AND vomiting (Acute) Abdominal pain (Acute) Sleep apnea (Acute) Arthritis (Acute) History of back problems (Acute) Surgical History History of colonoscopy (Acute) history excision colon polyps (Acute) History of arthroscopy of left knee (Acute) 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 Kasia Petit M.D. Pager: [phone] [facility] [address] [place] [address] [facility], [address] [place] [address] Office: [phone] Plan Detail Follow Up will schedule lap [...] Cholangiogram/ O R,Initial Comments: See Note; NOTES: [facility] Imaging Services [address] [place] [address] Cholangiogram/ O R,Initial MR#: [id number] Acct: [id number] Name: MARY LI Rep #: [id number] : 1940 F 78 From: Kayden Cortez MD PCP: Andria Steve DO Status: [facility] Study: Cholangiogram/ O R,Initial Date of Exam: 11/11/18 Exam# [id number] Ordering Dr: Kasia Petit MD STUDY: INTRAOPERATIVE [...] CC: Andria Steve DO; Kasia Petit MD Lab Nurse: Signed Andria Steve Start: 11-05-2018 End: 11-05-2018 History and Physical Exam Comments: See Note; NOTES: [facility] Medical Records Department [address] [place] [address] History and Physical 11/02/18 0331 MR#: [id number] Acct: [id number] Name: MARY LI Rep #: [id number] : 1940 77 From: Kasia Petit MD PCP: Andria Steve DO Status: REG [facility] Location: [place] [address] Intake Vital Signs 11/02/18 Body Mass Index (BMI) 26.6 Intake Visit Reasons: F/U Test Results HIDA Scan Chief Complaint: RUQ pain, second opinion Travel Registered Nurse Icu Required: No Is patient in pain?: No [...] BID #28 tab 10/21/18 [Rx Confirmed 11/02/18] [facility] Medical History Gallbladder polyp (Acute) Cholesterolosis (Acute) Acid reflux (Acute) Diarrhea (Acute) Nausea AND vomiting (Acute) Abdominal pain (Acute) Sleep apnea (Acute) Arthritis (Acute) History of back problems (Acute) Surgical History History of colonoscopy (Acute) history excision colon polyps (Acute) History of arthroscopy of left knee (Acute) History of sigmoidectomy due to a colovesical fistula in 2014 at [facility] History Father Cancer prostate Brother Cancer brain [...] questions were answered. Kasia Petit M.D. Pager: [phone] [facility] [address] [place] [address], [facility], [address] [place] [address] Office: [phone] Plan Detail Follow Up will schedule lap [...] Dictated: 11/02/18 0331 Date Transcribed: 11/04/18 171 Lab Nurse: Signed Andria Steve Start: 11-02-2018 End: 11-02-2018 Surgery Visit Report Comments: See Note; NOTES: [facility] [address] [place] [address]. [address] [place] [address] OFFICE VISIT Date of Service: 11/02/18 MR#: [id number] Acct: [id number] Name: MARY LI Rep #: [id number] : 1940 Provider: Kasia Petit MD Age/Sex: 77/F Location: [facility] Status: Signed Intake Vital Signs11/02/18 Body Mass Index (BMI) 26.6 Intake Visit Reasons: F/U Test Results HIDA Scan Chief Complaint: RUQ pain, second opinion Travel Registered Nurse Icu Required: No Is patient in pain?: No [...] questions were answered. Kasia Petit M.D. Pager: [phone] [facility] [address] [place] [address], [address] [place] [address] Office: [phone] Plan Detail Follow Up will schedule lap malou Coding Level of Care Code Off vis,est,level 3 Diagnoses Biliary dyskinesia K82.8 GERD (gastroesophageal reflux disease) K21.9 RUQ pain R10.11 Epigastric pain R10.13 11/02/18 1532 <Electronically signed by Kasia Petit MD> Date Kasia Petit MD Cosigner Signature: Date (if applicable) CC: Andria Rogers Start: 10-26-2018 End: 10-26-2018 Hepatobilliary Img w/Pharm Int Comments: See Note; NOTES: [facility] Imaging Services [address] [place] [address] Hepatobilliary Img w/Pharm Int MR#: [id number] Acct: [id number] Name: MARY LI Rep #: [id number] : 1940 F 77 From: Oscar Valladares DO PCP: Andria Steve DO Status: REG CLI Study: Hepatobilliary Img w/Pharm Int Date of Exam: 10/26/18 Exam# [id number] Ordering Dr: Kasia Petit MD CLINICAL: 77-year-old [...] of the gallbladder identified following CCK provision. PA/Hepatobilliary Img w/Pharm Int IMPRESSION: 1. ABNORMAL 99m [...] CC: Andria Steve DO; Kasia Petit MD Lab Nurse: Signed Andria Steve Start: 10-19-2018 End: 10-19-2018 Operative Report - Endoscopy Comments: See Note; NOTES: [facility] Medical Records Department [address] [place] [address] Operative Report - Endoscopy MR#: [id number] Acct: [id number] Name: STRONGOSMARY VALDEZ Rep #: [id number] : 1940 77 From: Kasia Petit MD PCP: Andria Steve DO Status: REG [facility] 10/19/2018 Andria Steve [address] [place] [address] [place] [address] Re : Upper GI endoscopy procedure for [...] Petit MD Date Dictated: 10/19/18923 Date Transcribed: Lab Nurse: ADY Signed Andria Steve Start: 10-19-2018 End: 10-19-2018 History and Physical Exam Comments: See Note; NOTES: [facility] Medical Records Department [address] [facility] [place] [address] History and Physical 10/19/18825 MR#: [id number] Acct: [id number] Name: MARY LI Rep #: [id number] : 1940 77 From: Kasia Petit MD PCP: Andria Steve DO Status: REG SDC Y Location: [place] [address] History and Physical Date of Admission: 10/19/18 Intake Vital Signs 10/16/18 Body Mass Index (BMI) 27.3 Intake Visit Reasons: RUQ pain Chief Complaint: RUQ pain, second opinion Travel Registered Nurse Icu Required: No Is patient in pain?: No [...] start omeprazole 20 mg p.o. twice daily lzck-wbe-xijmilh, just started yesterday. Patient currently states her [...] and coordinating care. Kasia Petit M.D. Pager: [phone] [facility] [address] [place] [address], [address] [place] [address] Office: [phone] Orders Orders: Plan Detail Follow Up Will [...] End: 10-12-2018 Gallbladder Comments: See Note; NOTES: [facility] Imaging Services [address] [place], [place] [id number] Gallbladder MR#: [id number] Acct: [id number] Name: MARY LI Rep #: [id number] : 1940 F 77 From: Oscar Tabares MD PCP: Andria Steve DO Status: REG CLI Study: Gallbladder Date of Exam: 10/12/18 Exam# [id number] Ordering Dr: Mercedes Sargent DEDICATED OWNER OPERATOR-C STUDY: ABDOMINAL ULTRASOUND - RIGHT UPPER QUADRANT [...] , CC: ROSITA Sargent; Andria Steve DO Lab Nurse: Signed Mercedes Sargent Start: 06-14-2016 End: 06-15-2016 Renal Scan w/ Pharm Intervent Comments: See Note; NOTES: [facility] Imaging Services [address] [facility] [place] [address] Verdana 4d Renal Scan w/ Pharm Intervent MR#: [id number] Acct: [id number] Name: MARY LI Rep #: [id number] : 1940 F 75 From: Oscar Valladares DO PCP: Andria Steve DO Status: REG CLI Study: Renal Scan w/ Pharm Intervent Date of Exam: 06/14/16 Exam# [id number] Ordering Dr: Osman Edwards MD CLINICAL: 75-year-old [...] of pre-furosemide sequential image acquisition. 3. The sgcpc-ky-qwnc ratio of total renal parenchymal function was [...] at 7:59 EST Tel , Service support [phone], CC: Osman Edwards MD; Andria Steve DO Lab Nurse: Signed Andria Steve Start: 04-07-2014 End: 04-07-2014 Bone density scan [facility] Start: 04-07-2014 End: 04-07-2014 Screening mammography [facility] Start: 04-07-2011 End: 04-07-2011 Screening colonoscopy [facility] [place] Start: 04-07-1998 End: 04-07-1998 Cataract Surgery [facility] [place] Start: 04-07-1998 End: 04-07-1998 Cataract surgery Lily [...] above: 8 yrs old Tonsillectomy Debbi Ingram RN CORRECTIONAL Comment on above: 8 yrs old Tonsillectomy Mellisa Noemy L PN Comment on above: 8 yrs old Tonsillectomy KELBY Tr GROUT WORKER Comment on above: 8 yrs old Plan of Treatment Date Care Activity Detail Author Start: 06-18-2026 Diabetes Screening Diabetes Screenin g [facility] Start: 12-06-2024 Influenza vaccination Influenza Vacc ine (#1) [facility] Start: 05-27-2024 End: 05-27-2024 Patient encounter procedure 05/27/2024 10:40 AM EST Office Visit [facility] [address] [place] [id number] Tadeo Napoles MD [address] [place] [address] [facility] Start: 04-07-2024 Advance Directive Discussion Advance Directive Discussion [facility] Start: 04-07-2024 Medicare Advantage Annual Wellness Visit Medicare Advantage Annual Wellness Visit [facility] Start: 02-26-2024 End: 02-25-2025 Ferritin [Mass/volume] in Serum or Plasma Ferritin Lab Routine Restless legs syndrome with nocturnal myoclonus Fatigue, unspecified type Expected: 02/26/2024 (Approximate), Expires: 02/25/2025 [facility] Comment on above: Expected: 02/26/2024 (Approximate), Expires: 02/25/2025 Start: 02-26-2024 End: 02-25-2025 Iron and Iron binding capacity panel - Serum or Plasma Iron and TIBC Lab Routine Restless legs syndrome with nocturnal myoclonus Fatigue, unspecified type Expected: 02/26/2024 (Approximate), Expires: 02/25/2025 [facility] Work Phone: Comment on above: Expected: 02/26/2024 (Approximate), Expires: 02/25/2025 Start: 02-26-2024 End: 02-25-2025 Thyrotropin [Units/volume] in Serum or Plasma TSH Lab Routine Restless legs syndrome with nocturnal myoclonus Fatigue, unspecified type Expected: 02/26/2024 (Approximate), Expires: 02/25/2025 [facility] Comment on above: Expected: 02/26/2024 (Approximate), Expires: 02/25/2025 Start: 12-07-2023 Covid-19 Vaccine () Covid-19 Vaccine () [facility] Start: 12-07-2023 COVID-19 Vaccine () COVID-19 Vaccine () [facility] Start: 12-07-2023 Influenza vaccination [facility] Start: 04-07-2023 Advance Directive Discussion Advance Directive Discussion [facility] Start: 04-07-2023 Depression Assessment Depression Ass essment [facility] Start: 04-07-2023 Medicare Advantage Annual Wellness Visit Medicare Advantage Annual Wellness Visit [facility] Start: 12-13-2022 Urnls dip stick/tabl et rgnt non-auto w/o micrscp Urinalysis, Office (87309) [facility] Work Phone: Start: 12-06-2022 Covid-19 Vaccine () Covid-19 Vaccine () [facility] Start: 12-05-2022 Culture bct isol&prsmptv id isolate ea urine URINE ANUJ CULTURE-IDENTIFICATN (14996) [facility]; [facility] Work Phone: Start: 12-05-2022 Procedure Education Eprescribe d prescriptions (G8553) [facility]; [facility] Work Phone: Start: 12-05-2022 Provider Instruction s for Treatment [facility]; [facility] Work Phone: Start: 11-20-2022 Blood count complete auto&auto difrntl wbc CBC, PLATELETS & AUT DIFF (43890) [facility]; [facility] Work Phone: Start: 11-20-2022 Comprehensive metabo lic panel METABOLIC PANEL, COMPREHENSIVE (27908) [facility]; [facility] Work [...] Examination with reflex to urine culture, routine (69825) [facility]; [facility] Work Phone: Start: 06-19-2022 Zoster Vaccines (2 o f 2) Zoster Vaccines (2 of 2) [facility] Start: 04-25-2022 Procedure Education Eprescribe d prescriptions (G8553) [facility]; [facility] Work Phone: Start: 12-06-2021 Influenza vaccination [facility] Start: 04-07-2021 ADVANCE DIRECTIVE DISCUSSION ADVANCE DIRECTIVE DISCUSSION [facility] Start: 06-06-2020 COVID-19 VACCINE (2 - Moderna 3-dose series) COVID-19 VACCINE (2 - Moderna 3-dose series) [facility] Start: 06-06-2020 COVID-19 VACCINE (2 - Moderna series) COVID-19 VACCINE (2 - Moderna series) [facility] Start: 05-01-2020 Procedure Education Eprescribe d prescriptions (G8553) [facility]; [facility] Work Phone: Start: 05-01-2020 Provider Instruction s for Treatment [facility]; [facility] Work Phone: Start: 02-10-2020 Procedure Education Eprescribe d prescriptions (G8553) [facility] Work Phone: Start: 02-10-2020 Culture bacterial quanttative colony count urine URINE ANUJ CULTURE (LUIS EDUARDO COL COUNT) (97993) [facility] Work Phone: Start: 01-20-2020 Procedure Education Eprescribe d prescriptions (G8553) [facility] Work Phone: Start: 01-20-2020 Provider Instruction s for Treatment [facility] Work Phone: Start: 01-20-2020 Culture bct isol&prsmptv id isolate ea urine URINE ANUJ CULTURE-IDENTIFICATN (36053) [facility] Work Phone: Start: 08-03-2019 DIABETES SCREEN DIABETES SCREEN [facility] Start: 04-08-2019 Procedure Education Eprescribe d prescriptions (G8553) [facility] Work Phone: Start: 04-08-2019 Provider Instruction s for Treatment [facility] Work Phone: Start: 10-12-2018 Procedure Education Eprescribe d prescriptions (G8553) [facility] Work Phone: Start: 10-12-2018 Provider Instruction s for Treatment [facility] Work Phone: Start: 10-12-2018 Sedimentation rate r bc non-automated Sed Rate Erythrocyte (86805) [facility] Work Phone: Start: 10-12-2018 Comprehensive metabo lic panel METABOLIC PANEL, COMPREHENSIVE (58973) [facility] Work Phone: Start: 10-12-2018 Blood count complete automated CBC & PLATELETS (AUTO) (40883) [facility] Work Phone: Start: 03-21-2017 Culture bct isol&prsmptv id isolate ea urine URINE ANUJ CULTURE-IDENTIFICATN (39142) [facility] Work Phone: Comment on [...] feces 1-3 FECAL OCCULT- Tubes sent home (78035) [facility] Work Phone: Start: 12-12-2015 [...] id isolate ea urine URINE ANUJ CULTURE-IDENTIFICATN (78620) [facility] Work Phone: Start: 11-23-2015 Comprehensive metabo lic panel METABOLIC PANEL, COMPREHENSIVE (33594) [facility] Work Phone: Start: 11-23-2015 Blood count complete auto&auto difrntl wbc CBC, PLATELETS & AUT DIFF (01717) [facility] Work Phone: Start: 11-05-2015 RSV Immunization for Adults (1 - 1-dose 75+ series) RSV Immunization for Adults (1 - 1-dose 75+ series) [facility] Start: 11-05-2015 RSV Vaccine (1 - 1-d ose 75+ series) RSV Vaccine (1 - 1-dose 75+ series) [facility] Start: 2005 BONE DENSITY BONE DENSITY [facility] Start: 2005 Pneumococcal Vaccine : 65+ Years (1 of 1 - PCV) Pneumococcal Vaccine: 65+ Years (1 of 1 - PCV) [facility] Start: 2005 PNEUMOCOCCAL: 65+ (1 - PCV) PNEUMOCOCCAL: 65+ (1 - PCV) [facility] Start: 2005 PNEUMOVAX AGE 65 AND OVER WITH 5YR LOOKBACK (#1) PNEUMOVAX AGE 65 AND OVER WITH 5YR LOOKBACK (#1) [facility] Start: 2005 Screening for osteoporosis Bone Density Screening [facility] Start: 2000 HEPATITIS B (1 of 3 - Risk 3-dose series) HEPATITIS B (1 of 3 - Risk 3-dose series) [facility] Start: 2000 Hepatitis B Vaccine (1 of 3 - Risk 3-dose series) Hepatitis B Vaccine (1 of 3 - Risk 3-dose series) [facility] Start: 2000 RSV Vaccine (1 - 1-d ose 60+ series) RSV Vaccine (1 - 1-dose 60+ series) [facility] Start: 1990 Pneumococcal Vaccine : 50+ (1 of 1 - PCV) Pneumococcal Vaccine: 50+ (1 of 1 - PCV) [facility] Start: 1990 Pneumococcal Vaccine : 50+ Years (1 of 1 - PCV) Pneumococcal Vaccine: 50+ Years (1 of 1 - PCV) [facility] Start: 1990 SHINGRIX VACCINE (1 of 2) SHINGRIX VACCINE (1 of 2) [facility] Start: 11-05-1959 DTaP/Tdap/Td Vaccine s (1 - Tdap) DTaP/Tdap/Td Vaccines (1 - Tdap) [facility] Start: 11-05-1959 Hepatitis A Vaccine (1 of 2 - Risk 2-dose series) Hepatitis A Vaccine (1 of 2 - Risk 2-dose series) [facility] Start: 11-05-1959 Urine microalbumin profile [facility] Start: 1958 Anxiety Screening Anxiety Screening [facility] Start: 1958 Depression Screening Depression Scre ening [facility] Start: 1958 MMR (1 of 2 - Risk 2-dose series) MMR (1 of 2 - Risk 2-dose series) [facility] Start: 1958 MMR Vaccine (1 of 2 - Risk 2-dose series) MMR Vaccine (1 of 2 - Risk 2-dose series) [facility] Start: 1952 Adult depression screening assessment DEPRESSION SCREENING [facility] Start: 1950 Meningococcal B Vaccine: Consider Based On Risk (1 of 4 - Increased Risk) Meningococcal B Vaccine: Consider Based On Risk (1 of 4 - Increased Risk) [facility] Start: 1950 MENINGOCOCCAL B: Consider based on risk (1 of 4 - Increased Risk Bexsero 2-dose series) MENINGOCOCCAL B: Consider based on risk (1 of 4 - Increased Risk Bexsero 2-dose series) [facility] Start: 1946 Pneumococcal Vaccine : 65+ (1 of 2 - PCV) Pneumococcal Vaccine: 65+ (1 of 2 - PCV) [facility] Start: 1941 HEPATITIS A (1 of 2 - Risk 2-dose series) HEPATITIS A (1 of 2 - Risk 2-dose series) [facility] Start: 1940 Lipid panel Lipid Panel [facility] Start: 1940 Screening for osteoporosis Bone Density Scan [facility] Work Phone: [facility] Work Phone: [facility] Work Phone: [facility] Work Phone: [facility] Work Phone: [facility] Work Phone: [facility] Work Phone: Immunizations Immunization Date Immunization Notes Care Provider [facility] 01-24-2023 influenza virus vaccine, unspecified formulation Tadeo Napoles MD Work Phone: [facility] 05-09-2020 COVID-Moderna (100 MCG/0.5 ML) Andria Steve DO Work Phone: [facility] Work Phone: 02-07-2018 influenza virus vaccine, unspecified formulation Federico Jade MD Work Phone: [facility] Payers Date Payer Category Payer Self-pay [id number] 2021 Medicare O [employer] MEDICARE [id number] 2017 Medicare HUMANA MEDICARE HU[employer]NA MEDICARE PPO [id number] 2017-Present [phone] [place] [address] PPO [id number] 2017 Medicare HUMANA MEDICARE HU[employer]NA MEDICARE PPO [id number] 2017-Present [phone] [place] [address] [id number] 2017 Medicare (Managed Care) HUMANA M EDICARE [id number] 2017 Medicare [id number] 2016 Private Health Insurance 1940 Unknown [id number] Unknown Hum//Medicare Adv Plan Unknown [id number] Unknown [id number] Unknown [id number] Unknown [id number] Unknown [id number] Unknown [id number] Unknown [id number] Unknown [id number] Unknown [id number] Unknown [id number] Social History Date Type Detail Facility Alcohol Use: Alcohol Use: [facility] Work Phone: Start: 04-23-2022 End: 06-17-2023 Exercise History Exercise History [facility] Work Phone: Comment on above: water aerobics 2-3 t imes a week Tobacco use: Tobacco use: [facility] Work Phone: Alcohol Use: Alcohol Use: [facility] Work Phone: Tobacco use: Tobacco use: [facility] Work Phone: Start: 05-05-2015 End: 02-26-2024 Tobacco smoking status NHIS Never smoked tobacco [facility] Start: 05-05-2015 End: 02-26-2024 Tobacco use and exposure Smokeless tobacco non-user [facility] Start: 07-13-2021 End: 07-08-2023 Alcohol intake Current non-drinker of alcohol (finding) [facility] Start: 1940 Sex Assigned At Not on file [facility] Start: 07-03-2021 End: 12-07-2021 Exposure to SARS-CoV-2 (event) Not sure [facility] Start: 04-14-2019 End: 04-14-2019 Tobacco smoking status NHIS Unknown if ever smoked [facility] Start: 10-19-2018 Non-smoker [facility] Start: 1940 Sex Assigned At Female [facility] Start: 04-23-2022 End: 06-17-2023 [facility] Utilities [facility] Has the [employer], or [employer] threatened to shut off services in your home in past 12Mo No [facility] How hard is it for y ou to pay for the very basics like food, housing, medical care, and heating Not hard at all [facility] (I/We) worried wheaidee er (my/our) food would run out before (I/we) got money to buy more. Never true [facility] Start: 06-17-2019 Gender identity Identifies as female gender (finding) [facility] Start: 02-26-2024 Alcoholic beverage intake Ex-drinker (finding) [facility] Start: 02-26-2024 Alcohol Comment Once or twice a year [facility] Start: 11-05-2021 Sex Female (finding) [facility] Medical Equipment Procedure Code Equipment Code Equipment Original Text Equipment Identifier Dates Total cholecystectomy with exploration of common bile duct CLIP,LawdingoDAMIAN [employer] FDA Start: 11-11-2018 Total cholecystectomy with exploration of common bile duct CLIP,[employer] FDA Start: 11-11-2018 Total cholecystectomy with exploration of common bile duct CLIP,[employer] FDA Start: 11-11-2018 Total cholecystectomy with exploration of common bile duct CLIP,[employer] FDA Start: 11-11-2018 Total cholecystectomy with exploration of common bile duct CLIP,GERALD [employer] STEPHANIE FDA Start: 11-11-2018 Total cholecystectomy with exploration of common bile duct CLIP,GERALD BROWN FDA Start: 11-11-2018 Total cholecystectomy with exploration of common bile duct CLIP,HEMDAMIAN BROWN FDA Start: 11-11-2018 Total cholecystectomy with exploration of common bile duct CLIP,HEMDAMIAN [employer] STEPHANIE FDA Start: 11-11-2018 Total cholecystectomy with exploration of common bile duct CLIP,GERALD [employer] STEPHANIE FDA Start: 11-11-2018 Total cholecystectomy with exploration of common bile duct CLIP,LawdingoDAMIAN [employer] STEPHANIE FDA Start: 11-11-2018 Functional Status Date Assessment Result Facility 06-19-2023 Are you deaf, or do you have serious difficulty hearing No 06/19/2023 11:21 AM Kamala Garcia RN No [facility] 06-19-2023 Are you blind, or do you have serious difficulty seeing, even when wearing glasses No 06/19/2023 11:21 AM Kamala Garcia RN No [facility] 06-19-2023 Do you have serious difficulty walking or climbing stairs No 06/19/2023 11:21 AM Kamala Garcia RN No [facility] 06-19-2023 Do you have difficul ty dressing or bathing No 06/19/2023 11:21 AM Kamala Garcia, LUCY No [facility] 06-19-2023 Because of a physica l, mental, or emotional condition, do you have difficulty doing errands alone such as visiting a physician's office or shopping No 06/19/2023 11:21 AM Kamala Garcia RN No [facility] Mental Status Date Assessment Result Facility 06-19-2023 Because of a physica l, mental, or emotional condition, do you have serious difficulty concentrating, remembering, or making decisions No 06/19/2023 11:21 AM Kamala Garcia RN No [facility] Clinical Notes 08-05-2016 to 10-20-2024 Unique Valdovinos RT(Monae) - 10/20/2024 10:30 AM EDTTelephone Encounter - [...] PATIENT PRESENTS WITH AN IMPLANTABLE OR ATTACHED PINION POLISHER: No ALLERGIES: Reviewed and unchanged CONTRAST ALLERGY: NO. EXAM: MRI - CONTRAST TYPE: GROUP II PERIPHERAL IV DATA: Ambulatory: A peripheral IV was started in the Left antecubital site with a Angio cath: 22 gauge. RADIOLOGY DEPARTMENT: MR; Exam(s) Completed: Body: Renal. Aromatherapy Administered: No SIGNATURE: ESPERANZA Mckeon) PATIENT NAME: Mary Li DATE: October 20, 2024 TIME: 11:11 AM documented in this encounter [facility] 10-20-2024 Note HNO ID: [id number] Author: UNIQUE VALDOVINOS RT(R) Service: ? Author [...] PATIENT PRESENTS WITH AN IMPLANTABLE OR ATTACHED PINION POLISHER: No ALLERGIES: Reviewed and unchanged CONTRAST ALLERGY: NO. EXAM: MRI - CONTRAST TYPE: GROUP II PERIPHERAL IV DATA: Ambulatory: A peripheral IV was started in the Left antecubital site with a Angio cath: 22 gauge. RADIOLOGY DEPARTMENT: MR; Exam(s) Completed: Body: Renal. Aromatherapy Administered: No SIGNATURE: RT Linda(R) PATIENT NAME: Mary Li DATE: October 20, 2024 TIME: 11:11 AM [facility] 08-05-2024 Note [facility] Medical Records Department [address] [place] [address] Discharge Summary 08/05/2431 MR#: [id number] Acct: [id number] Name: MARY LI Rep #: [id number] : 1940 83 From: Tae Chopra MD PCP: Dr. Andria Steve DO Status:ADM IN Location: [place] [address]1 Providers Date of Admission: 08/03/24 Date of [...] (more content not included)... [facility] 05-14-2024 Telephone encounter Note Last ov- 02/26/24 Next ov-05/27/24 [facility] 05-14-2024 Miscellaneous Notes Last ov- 02/26/24 Next ov-05/27/24 documented in this encounter [facility] 02-26-2024 History of Presen t illness Narrative Images from the original note were not included. [facility] NE[facility]OS[facility]ENCE [address] [facility] [address] Dept: [phone] Dept Loc: [phone] Tadeo Napoles MD Thank you for your [...] Resource Strain: Low Risk (06/17/2023) Received from [facility] Overall Financial Resource Strain (CARDIA) Difficulty of Paying Living Expenses: Not hard at all Food Insecurity: No Food Insecurity (06/17/2023) Received from [facility] Hunger Vital Sign Worried About Running Out of Food in the Last Year: Never true Ran Out of Food in the Last Year: Never true Transportation Needs: No Transportation Needs (06/17/2023) Received from [facility] PRAPARE - Transportation Lack of Transportation (Medical): [...] TSH VITAMIN B12: No results found for: [id number] FERRITIN: No results found for: FERRITIN ---- [...] arranging for studies. documented in this encounter [facility] 07-08-2023 History of Presen t illness [...] g by mouth once daily. vits A-C-E-B cpvyix-fok-ybmqac 5,000 unit- 120 mg-60 unit TbER Take [...] Jade III, MD documented in this encounter [facility] 06-18-2023 Note HNO ID: [id number] Author: CHRISTO HANSON PA-C Service: General Surgery Author Type: Physician [employer] Cylinder Packing Mixer Type: Progress Notes Filed: 06/18/2023 14:23 Note [...] clinical indicators: x Hyponatremia Other, please specify [facility] 06-17-2023 Note HNO ID: [id number] Author: TYRELL FINK MD Service: General Surgery Author Type: Physician [employer] Cyl[employer] Packing Mixer Type: Progress Notes Filed: 06/17/2023 14:53 Note [...] DATE: June 17, 2023 TIME: 11:32 AM [facility] 06-17-2023 Note HNO ID: [id number] Author: CARLINE BERNAL RN Service: Care Management [...] Current Advance Directive: Health Care Power of [place];Living Will In Chart: Yes Up To Date [...] Independent living, Be able to go home [facility] Explained: [facility] Given: No Reason Not Given: No placements necessary Are you interested in bedside delivery of your medications? No,preferred community Pharmacy is [facility]. Discharge Planning Participant(s): Patient Caregiver Assessment: Caregiver [...] steps to enter. Patient states she was [employer] and has DME that her spouse used if needed. No skilled needs are anticipated at discharge. CM assigned will continue to follow. SIGNATURE: Carline Bernal RN PATIENT NAME: Mary Li DATE: June 17, 2023 TIME: 10:57 AM CONTACT #: [phone] [facility] 06-17-2023 Note HNO ID: [id number] Author: ELISE ZAZUETA RN Service: ? Author Type: Registered Nurse Type: Nursing Progress Note Filed: 06/16/2023 23:02 Note Text: 2300: report given to oncoming rn [facility] 12-07-2021 Instructions Leatha Cassidy OD - [...] her original recall documented in this encounter [facility] 12-07-2021 History of Presen t illness Narrative [...] examined this patient. documented in this encounter [facility] 07-13-2021 Instructions Leatha Cassidy, OD - 07/13/2021 [...] Recommended yearly exams. documented in this encounter [facility] 07-13-2021 History of Presen t illness Narrative [...] Leatha Cassidy, SANDRA documented in this encounter [facility] 08-05-2016 History of Past i llness Narrative Problem Noted Date Resolved Date Hypokalemia 08/05/2016 08/05/2016 Hypophosphatemia 08/05/2016 08/05/2016 Respiratory depression 08/02/2016 7 documented as of this encounter (statuses as of 07/13/2021) [facility] History of Past illness Narrative* Problem Noted Date Resolved Date Hypokalemia 08/05/2016 08/05/2016 Hypophosphatemia 08/05/2016 08/05/2016 Respiratory depression 08/02/2016 7 documented as of this encounter (statuses as of 12/07/2021) [facility] of Past illness Narrative* Problem Noted Date Diagnosed Date Resolved Date Hypokalemia 08/05/2016 08/05/2016 Hypophosphatemia 08/05/2016 08/05/2016 Respiratory depression 08/02/201608/02 documented as of this encounter (statuses as of 07/08/2023) [facility] Ophthalmic migraine- Primary Other forms of migraine, without mention of intractable migraine without mention of status migrainosus Dry eyes Tear film insufficiency, unspecified PVD (posterior vitreous detachment), both eyes Vitreous degeneration 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 [facility] Work Phone: [facility] note* Diagnosis SBO (small bowel obstruction) (HCC)- Primary Unspecified intestinal obstruction [facility] Idiopathic neuropathy- Primary Other specified idiopathic peripheral neuropathy Restless legs syndrome with nocturnal myoclonus Sleep related leg cramps Fatigue, unspecified type [facility] Name Dates Details How to Access Health Informa tion Online using Patient Portal and [employer] Apps Indication:Nonsmoker Start:01-May-2020 Instruction Type:Patient Education Patient [...] Informa tion Online using Patient Portal and [employer] Apps Indication:Nonsmoker Start:01-May-2020 Instruction Type:Patient Education Patient [...] Informa tion Online using Patient Portal and [employer] Indication:Nonsmoker Start:25-Apr-2022 Instruction Type:Patient Education How to Access Health Informa tion Online using Patient Portal and [employer] Apps Indication:Nonsmoker Start:01-May-2020 Instruction Type:Patient Education Patient [...] tion Online using Patient Portal and [employer] Apps Indication:UTI symptoms (Renamed from Symptoms of urinary tract infection) Start:20-Nov-2022 Instruction Type:Patient Education Patient Instructions Indication:Nonsmoker Start:25-Apr-2022 Instruction Type:Provider Instructions for Treatment How to Access Health Informa tion Online using Patient Portal and [employer] Apps Indication:Nonsmoker Start:25-Apr-2022 Instruction Type:Patient Education How to Access Health Informa tion Online using Patient Portal and [employer] Apps Indication:Nonsmoker Start:01-May-2020 Instruction Type:Patient Education Patient [...] tion Online using Patient Portal and [employer] Apps Indication:UTI symptoms (Renamed from Symptoms of urinary tract infection) Start:20-Nov-2022 Instruction Type:Patient Education Patient Instructions Indication:Nonsmoker Start:25-Apr-2022 Instruction Type:Provider Instructions for Treatment How to Access Health Informa tion Online using Patient Portal and [email or web address] Apps Indication:Nonsmoker Start:25-Apr-2022 Instruction Type:Patient Education How to Access Health Informa tion Online using Patient Portal and [employer] Apps Indication:Nonsmoker Start:01-May-2020 Instruction Type:Patient Education Patient [...] Informa tion Online using Patient Portal and [employer] Apps Indication:BMI 25.0-25.9,adult Start:05-Dec-2022 Instruction Type:Patient Education Patient Instructions Indication:UTI symptoms (Renamed from Symptoms of urinary tract infection) Start:20-Nov-2022 Instruction Type:Provider Instructions for Treatment How to Access Health Informa tion Online using Patient Portal and [employer] Indication:UTI symptoms (Renamed from Symptoms of urinary tract infection) Start:20-Nov-2022 Instruction Type:Patient Education Patient Instructions Indication:Nonsmoker Start:25-Apr-2022 Instruction Type:Provider Instructions for Treatment How to Access Health Informa tion Online using Patient Portal and [email or web address] Apps Indication:Nonsmoker Start:25-Apr-2022 Instruction Type:Patient Education How to Access Health Informa tion Online using Patient Portal and [employer] Apps Indication:Nonsmoker Start:01-May-2020 Instruction Type:Patient Education Patient [...] Informa tion Online using Patient Portal and [employer] Indication:BMI 25.0-25.9,adult Start:05-Dec-2022 Instruction Type:Patient Education Patient Instructions Indication:UTI symptoms (Renamed from Symptoms of urinary tract infection) Start:20-Nov-2022 Instruction Type:Provider Instructions for Treatment How to Access Health Informa tion Online using Patient Portal and [employer] Indication:UTI symptoms (Renamed from Symptoms of urinary tract infection) Start:20-Nov-2022 Instruction Type:Patient Education Patient Instructions Indication:Nonsmoker Start:25-Apr-2022 Instruction Type:Provider Instructions for Treatment How to Access Health Informa tion Online using Patient Portal and [employer] Apps Indication:Nonsmoker Start:25-Apr-2022 Instruction Type:Patient Education How to Access Health Informa tion Online using Patient Portal and [employer] Apps Indication:Nonsmoker Start:01-May-2020 Instruction Type:Patient Education Patient [...] tion Online using Patient Portal and [employer] Apps Indication:BMI 25.0-25.9,adult Start:05-Dec-2022 Instruction Type:Patient Education Patient Instructions Indication:UTI symptoms (Renamed from Symptoms of urinary tract infection) Start:20-Nov-2022 Instruction Type:Provider Instructions for Treatment How to Access Health Informa tion Online using Patient Portal and [employer] Apps Indication:UTI symptoms (Renamed from Symptoms of urinary tract infection) Start:20-Nov-2022 Instruction Type:Patient Education Patient Instructions Indication:Nonsmoker Start:25-Apr-2022 Instruction Type:Provider Instructions for Treatment How to Access Health Informa tion Online using Patient Portal and [employer] Apps Indication:Nonsmoker Start:25-Apr-2022 Instruction Type:Patient Education How to Access Health Informa tion Online using Patient Portal and [employer] Apps Indication:Nonsmoker Start:01-May-2020 Instruction Type:Patient Education Patient [...] Informa tion Online using Patient Portal and [employer] Indication:BMI 25.0-25.9,adult Start:05-Dec-2022 Instruction Type:Patient Education Patient Instructions Indication:UTI symptoms (Renamed from Symptoms of urinary tract infection) Start:20-Nov-2022 Instruction Type:Provider Instructions for Treatment How to Access Health Informa tion Online using Patient Portal and [employer] Indication:UTI symptoms (Renamed from Symptoms of urinary tract infection) Start:20-Nov-2022 Instruction Type:Patient Education Patient Instructions Indication:Nonsmoker Start:25-Apr-2022 Instruction Type:Provider Instructions for Treatment How to Access Health Informa tion Online using Patient Portal and [employer] Apps Indication:Nonsmoker Start:25-Apr-2022 Instruction Type:Patient Education How to Access Health Informa tion Online using Patient Portal and [employer] Apps Indication:Nonsmoker Start:01-May-2020 Instruction Type:Patient Education Patient [...] Informa tion Online using Patient Portal and [employer] Indication:BMI 25.0-25.9,adult Start:05-Dec-2022 Instruction Type:Patient Education Patient Instructions Indication:UTI symptoms (Renamed from Symptoms of urinary tract infection) Start:20-Nov-2022 Instruction Type:Provider Instructions for Treatment How to Access Health Informa tion Online using Patient Portal and [employer] Indication:UTI symptoms (Renamed from Symptoms of urinary tract infection) Start:20-Nov-2022 Instruction Type:Patient Education Patient Instructions Indication:Nonsmoker Start:25-Apr-2022 Instruction Type:Provider Instructions for Treatment How to Access Health Informa tion Online using Patient Portal and [employer] Apps Indication:Nonsmoker Start:25-Apr-2022 Instruction Type:Patient Education How to Access Health Informa tion Online using Patient Portal and [employer] Apps Indication:Nonsmoker Start:01-May-2020 Instruction Type:Patient Education Patient [...] Referred To Contact Radiology / RADIO MRI [facility] MOB Diagnoses Mass of kidney of unknown nature MRI Abdomen W/WO Contrast Mass of kidney of unknown nature N28.89 Andria Steve, DO-order in scanned docs Procedures MRI ABDOMEN W/O & W/CONTRAST MATERIAL MRI WWO ABD 300 Andria Steve, [address] [place] [address] Phone: tel: fax: Radiology [address] [place] [address] Phone: tel: fax: Referral ID Status Reason Start Date Expiration Date Visits Re quested Visits Authorized [id number] Closed 10/20/2024 12/19/2024 1 1 [facility] Summary Purpose Family History No Family History [...] Records Found Name Dates Details Immunization Registry [place] - Effective on 05/23/2020. Expiration date unspecified Effective:23-May-2020 Documents on File Type Date Recorded Patient Resident Caregiver Expl anation Advance Directive(s) 06/28/2019 10:04 AM Advance Directive(s) 06/15/2019 11:12 AM Advance Directive(s) 06/11/2019 1:44 PM Advance Directive(s) 05/19/2019 1:32 PM Advance Directive(s) 07/29/2016 1:14 PM Advance Directive(s) 07/03/2016 1:56 PM Advance Directive(s) 07/03/2016 9:39 AM Documents on File Type Date Recorded Patient Resident Caregiver Expl anation Advance Directive(s) 07/03/2016 9:39 AM Name Dates Details Immunization Registry [place] - Effective on 05/23/2020. Expiration date unspecified Effective:23-May-2020 Name Dates Details Immunization Registry [place] - Effective on 05/23/2020. Expiration date unspecified Effective:23-May-2020 Name Dates Details Immunization Registry [place] - Effective on 05/23/2020. Expiration date unspecified Effective:23-May-2020 Name Dates Details Immunization Registry [place] - Effective on 05/23/2020. Expiration date unspecified Effective:23-May-2020 Advance Directive Response Recorded Date/ Time Advance Directives Yes October 19 19 8:48am Living Will Yes 2018 8:42am Power of Shade Hanger Yes November 04 9 8:42am Name Dates Details Immunization Registry [place] - Effective on 05/23/2020. Expiration date unspecified Effective:23-May-2020 Name Dates Details Immunization Registry [place] - Effective on 05/23/2020. Expiration date unspecified Effective:23-May-2020 Name Dates Details Immunization Registry [place] - Effective on 05/23/2020. Expiration date unspecified Effective:23-May-2020 Name Dates Details Immunization Registry [place] - Effective on 05/23/2020. Expiration date unspecified Effective:23-May-2020 Advance Directive Response Recorded Date/ Time Advance Directives Yes October 19 19 7:48am Living Will Yes 2018 7:42am Power of Shade Hanger Yes November 04 9 7:42am Documents on File Type Date Recorded Patient Resident Caregiver Expl anation Advance Directive(s) 07/03/2016 9:39 AM [...] General Surgery Diagnoses SBO (small bowel obstruction) ([facility]) Procedures CONSULT TO GENERAL SURGERY Federico Jade MD [address] [place] [address] Kasia Petit MD [address] [place] [address] Referral ID Status Reason Start Date Expiration Date Visits Requested Visits Authorized [id number] Ref Not Required PCP Requested Referral 07/08/2023 07/07/2024 1 1 Additional Source Comments INFORMATION SOURCE (unrecogn ized section and content) DATE CREATED AUTHOR 09/29/2017 [facility] DATE CREATED AUTHOR AUTHOR'S ORGANIZ ATION 03/18/2019 [employer] DATE CREATED AUTHOR AUTHOR'S ORGANIZ ATION 05/27/2019 [facility] DATE CREATED AUTHOR AUTHOR'S ORGANIZ ATION 11/22/2020 [facility] DATE CREATED AUTHOR AUTHOR'S ORGANIZ ATION 05/01/2022 [facility] DATE CREATED AUTHOR AUTHOR'S ORGANIZ ATION 06/19/2023 [facility] DATE CREATED AUTHOR AUTHOR'S ORGANIZ ATION 06/22/2023 [facility] DATE CREATED AUTHOR AUTHOR'S ORGANIZ ATION 05/17/2024 [facility] DATE CREATED AUTHOR AUTHOR'S ORGANIZ ATION 10/29/2024 [facility] DATE CREATED AUTHOR AUTHOR'S ORGANIZ ATION 02/17/2025 [facility] Source Comments (unrecognize d section and content) In the event this informatio n is protected by the Federal Confidentiality of Alcohol and Drug Abuse Patient Records regulations: The Federal rules restrict any use of the information to criminally investigate or prosecute any alcohol or drug abuse patient.[facility] the event this information is protected by the Federal Confidentiality of Alcohol and Drug Abuse Patient Records regulations: The Federal rules restrict any use of the information to criminally investigate or prosecute any alcohol or drug abuse patient.[facility] the event this information is protected by the Federal Confidentiality of Alcohol and Drug Abuse Patient Records regulations: The Federal rules restrict any use of the information to criminally investigate or prosecute any alcohol or drug abuse patient.[facility] the event this information is protected by the Federal Confidentiality of Alcohol and Drug Abuse Patient Records regulations: The Federal rules restrict any use of the information to criminally investigate or prosecute any alcohol or drug abuse patient.[facility] Reason for Visit (unrecogniz ed section and content) Reason Comments Flashes Both Eyes for 1 week Headaches for 1 week Reason Comments Blood Shot Eye Left Eye No pain Reason Comments Hospital Follow Up SBO Reason Comments New Patient Numbness Specialty Diagnoses / Procedures Referred By Contac t Referred To Contact Neurology Diagnoses Polyneuropathy, unspecified Procedures HI OFFICE/OUTPATIENT NEW MODERATE MDM 45 MINUTES Andria Steve DO [address] [facility] [address] [place] [address] Phone: tel: fax: Tadeo Napoles MD [address] [facility] [address] [place] [address] Phone: tel: fax: Referral ID Status Reason Start Date Expiration Date V isits Requested Visits Authorized [id number] Pending Review 11/14/2023 11/13/2024 1 1 Reason Comments Med Refill Care Teams (unrecognized sec tion and content) Sld Inclusion Teacher Relationship Specialty Start Date End Date Andria Steve DO PCP - General Internal Medicine 05/27/16 Sld Inclusion Teacher Relationship Specialty Start Date End Date Andria [...] Attending Provider, Referring Leigh Ann echavarria Active Sld Inclusion Teacher Relationship Specialty Start Date End Date Andria Steve DO PCP - General Internal Medicine 05/27/16 Sld Inclusion Teacher Relationship Specialty Start Date End Date Andria Steve DO [address] [place] [address] PCP - General 03/11/17 Sld Inclusion Teacher Relationship Specialty Start Date End Date Andria Steve DO [address] [place] [address] PCP - General 03/11/17 Sld Inclusion Teacher Relationship Specialty Start Date End Date Andria [...] BE BASED ON THE PRIMARY CLINICAL RECORDS. [employer] [facility]. provides no warranty or guarantee of the accuracy or completeness of information in this document.
[2025-03-31] MEDS: 0.9% Normal Saline (1000mL) 1,000 ML 100 ML IV (20:48)
[2025-03-31 20:49] VITALS: RESP 15; O2SAT 97
[2025-03-31 21:10] VITALS: BMI 19.1
[2025-03-31 21:12] LABS: Red Blood Cells-Urine 25-50 SEEN /hpf (0-5)
[2025-03-31 21:14] LABS: Mucous, Urine 1+ /hpf (<or=2+); Squamous Epithelial Cells - UA 0-5 SEEN /hpf (5-10)
[2025-03-31 21:27] VITALS: BP 153/72; PULSE 63; RESP 15; TEMP 36.7; O2SAT 98
[2025-03-31] MEDS: HYDROmorphone 0.5 MG/0.5 ML SYRINGE IV (21:57)
[2025-03-31] MEDS: Heparin Injection (Vial) 5,000 UNIT/ML VIAL 5000 UNIT SC (22:10)
[2025-04-01 02:43] VITALS: BP 151/83; PULSE 62; RESP 16; TEMP 37.2; O2SAT 97
[2025-04-01] MEDS: HYDROmorphone 0.5 MG/0.5 ML SYRINGE IV (02:47)
[2025-04-01 04:01] LABS: Hematocrit 35.4 % (37-47); Hemoglobin 11.7 g/dL (12.0-15.0); Immature Granulocytes Count 0.020 X10^3/uL (0.0-0.0); Mean Corp Hgb Conc 33.1 g/dL (32-36); Mean Corpuscular Volume 92.7 fL (81-99); Mean Platelet Vol. 10.0 fl (6.2-12.0); NRBC Flagged by Analyzer 0 % (0-5); Platelet Count 205 K/mm3 (150-450); RBC Distribution Width CV 13.6 % (11.6-14.6); RBC Distribution Width SD 45.9 fl (35.1-43.9); Red Blood Count 3.82 M/mm3 (4.2-5.4); White Blood Count 6.4 K/mm3 (4.4-11.0)
[2025-04-01 04:40] LABS: Anion Gap 7 (7-18); BUN 27 mg/dL (4-19); BUN/Creat Ratio 37.3 RATIO (10-20); Calcium,Total 8.7 mg/dL (7.6-11.0); Carbon Dioxide 24.9 mmol/L (20.0-29.0); Chloride 105 mmol/L (96-106); Estimated Creatinine Clearance 43.80 ml/min (50-250); Glucose 120 mg/dL (70-99); Magnesium 2.2 mg/dL (1.5-2.2); Potassium 4.0 mmol/L (3.5-5.1)
--- NOTE | 2025-04-01 06:10 | RAD_ITS ---
PROCEDURE: ABDOMEN SINGLE VIEW (PORTABLE) 04/01/2025 REASON FOR EXAM: SBO TECHNIQUE: Procedure Code: RADABD_P Modality: DX Procedure: ABDOMEN SINGLE VIEW (PORTABLE) COMPARISON: Abdominal radiograph 03/31/2025, 08/04/2024. Correlation with CT abdomen/pelvis 03/31/2025. FINDINGS: An enteric feeding tube extends to the region of the stomach. There is paucity of bowel gas. No radiographic evidence for distended loops of bowel. No air-fluid. No abnormal calcifications. Unremarkable osseous structures. RAD/Abdomen Single View (Portable) IMPRESSION: Paucity of bowel gas which may be seen in the setting of bowel obstruction. No radiographic evidence for distended loops of bowel or air-fluid levels. Enteric feeding tube extends to the region of the s tomach. Reading Location: [id number]
--- NOTE | 2025-04-01 07:17 | PN.HOSP_ITS ---
Reason for Visit Chief Complaint: Abdominal pain Subjective Subjective Patient is an 84-year-old lady with previous abdominal surgery (sigmoidectomy for volvulus, cholecystectomy and excision of colonic polyps) who presented with abdominal pain with associated nausea and generalized weakness. Imaging studies came back consistent with Small bowel obstruction admitted to regular nursing floor for further management Objective Data Objective Data Vital Signs: Vital Signs Temp Pulse Resp BP Pulse Ox O2 Del Method 98.9 F 62 16 151/83 H 97 Room Air 04/01/25 02:43 04/01/25 02:43 04/01/25 02:43 04/01/25 02:43 04/01/25 02:43 04/01/25 02:43 Oxygen Delivery Method Room Air Weight: 53 kg Body Mass Index (BMI) 19.1 Intake & Output: Intake and Output for Last 24 Hours 03/30/25 03/31/25 04/01/25 23:59 23:59 23:59 Intake Total 1100 / 1130 60 / 60 Balance 1100 / 1130 60 / 60 Lab / Micro Data 04/01/25 03:08 04/01/25 03:08 Labs: Laboratory Results - last 24 hr 03/31/25 18:10: WBC 9.6, RBC 4.38, Hgb 13.4, Hct 39.8, MCV 90.9, MCH 30.6, MCHC 33.7, RDW Std Deviation 44.6 H, RDW Coeff of Shira 13.3, Plt Count 215, MPV 9.3, Immature Gran % (Auto) 0.200, Neut % (Auto) 85.5 H, Lymph % (Auto) 9.1 L, [place] % (Auto) 5.1, Eos % (Auto) 0.0, Baso % (Auto) 0.1, Absolute Neuts (auto) 8.2 H, Absolute Lymphs (auto) 0.88, Nucleated RBC % 0, Sodium Cancelled, Potassium Cancelled, Chloride Cancelled, Carbon Dioxide Cancelled, Anion Gap Cancelled, BUN Cancelled, Creatinine Cancelled, Est GFR (MDRD) Non-Af Cancelled, BUN/Creatinine Ratio Cancelled, Glucose Cancelled, Calcium Cancelled, Total Bilirubin Cancelled, AST Cancelled, ALT Cancelled, Alkaline Phosphatase Cancelled, Total Protein Cancelled, Albumin Cancelled, Globulin Cancelled, Albumin/Globulin Ratio Cancelled, Lipase 38 03/31/25 18:47: Sodium 138, Potassium 3.8, Chloride 102, Carbon Dioxide 23.1, Anion Gap 13, BUN 26 H, Creatinine 0.80, Estim Creat Clear Calc 45.02 L, Est GFR (MDRD) Non-Af 73, BUN/Creatinine Ratio 32.3 H, Glucose 113 H, Calcium 9.0, Total Bilirubin 0.84, AST 34 H, ALT 14, Alkaline Phosphatase 53, Total Protein 6.8, Albumin 4.1, Globulin 2.8, Albumin/Globulin Ratio 1.5 03/31/25 19:29: Urine Color Yellow, Urine Clarity Sl. Cloudy, Urine pH 6.0, Ur Specific [place] 1.025, Urine Protein 100 H, Urine Glucose (UA) Normal, Urine Ketones 150 A*, Urine Occult Blood 150 H, Urine Nitrite Negative, Urine Bilirubin 1 H, Urine Urobilinogen 1 H, Ur Leukocyte Esterase 100 H, Urine RBC 25-50 SEEN, Urine WBC 50-100 SEEN, Ur Squamous Epith Cells 0-5 SEEN, Urine Bacteria 0 SEEN, Urine Mucus 1+ 04/01/25 03:08: WBC 6.4, RBC 3.82 L, Hgb 11.7 L, Hct 35.4 L, MCV 92.7, MCH 30.6, MCHC 33.1, RDW Std Deviation 45.9 H, RDW Coeff of Shira 13.6, Plt Count 205, MPV 10.0, Immature Gran % (Auto) 0.300, Neut % (Auto) 78.7 H, Lymph % (Auto) 12.3 L, [place] % (Auto) 8.5, Eos % (Auto) 0.0, Baso % (Auto) 0.2, Absolute Neuts (auto) 5.0, Absolute Lymphs (auto) 0.78 L, Nucleated RBC % 0, Sodium 136, Potassium 4.0, Chloride 105, Carbon Dioxide 24.9, Anion Gap 7, BUN 27 H, Creatinine 0.73, Estim Creat Clear Calc 43.80 L, Est GFR (MDRD) Non-Af 81, BUN/Creatinine Ratio 37.3 H, Glucose 120 H, Calcium 8.7, Phosphorus 3.4, Magnesium 2.2 Micro: Microbiology 03/31/25 18:15 Mucosa - Nose SARS-CoV-2, Influenza & RSV (PCR) - Final Radiography Diagnostic Testing: Radiology Impression Abdomen/Pelvis CT 03/31/25 18:30 IMPRESSION: 1. Lack of contrast limits evaluation. When compared to CT abdomen/pelvis 08/03/2024, persistent dilated loops of fluid-filled small bowel measuring up to 4.4 cm and concerning for small bowel obstruction. 2. Persistent pneumobilia is nonspecific but may be iatrogenic in origin. 3. Bilateral hypodense cortical renal lesions which may reflect proteinaceous or hemorrhagic cysts. If not already evaluated, an MRI of the kidneys may be obtained for further evaluation. Reading Location: [facility] X-Ray 03/31/25 20:30 IMPRESSION: A nasogastric tube extends below the diaphragm with tip in the left upper quadrant at the region of the stomach. No pneumothorax. Reading Location: [facility] Physical Exam Narrative GENERAL: cooperative HEENT: Atraumatic; normocephalic, NG tube in place EYES; Anicteric, Normal Conjunctiva NECK; supple, normal thyroid, RESPIRATORY: Diminished to auscultation CARDIOVASCULAR: Regular S1 S2, GI: soft, nondistended hypoactive bowel sounds : No Renal angle tenderness; EXTREMITIES: No edema, no clubbing, MUSCULOSKELETAL: no muscle wasting NEURO: Awake; no lateralizing signs. SKIN: No Rash PSYCH; Flat affect Assessment & Plan Assessment/Plan (1) SBO (small bowel obstruction): (2) Intractable vomiting: (3) Abdominal adhesions: (4) Pneumobilia: (5) Bilateral renal masses: (6) CKD (chronic kidney disease) stage 3, GFR 30-59 ml/min: QUALIFIERS: Chronic kidney disease stage 3 subtype: stage 3a (GFR 45-59) Qualified Code(s): N18.31 - Chronic kidney disease, stage 3a (7) Anxiety: PLAN: Plan Patient is an 84-year-old lady with previous abdominal surgery (sigmoidectomy for volvulus, cholecystectomy and excision of colonic polyps) who presented with abdominal pain with associated nausea and generalized weakness. Imaging studies came back consistent with Small bowel obstruction admitted to regular nursing floor for further management 1. Small bowel obstruction ? Suspected to be secondary to adhesions following patient previous surgery. CT of the abdomen and pelvis persistent dilated loops of fluid-filled small bowel measuring up to 4.4 cm and concerning for small bowel obstruction. Patient admitted to regular nursing floor conservative management with bowel rest, NG tube to suction pain medication and antinausea medication initiated consult was placed to general surgery?Dr. Arvizu 2. Acute complicated urinary tract infection ? Patient started on ceftriaxone 3. Obstructive sleep apnea -PAP therapy encouraged 4. Allergic rhinitis ? Patient was on fluticasone did continue 5. Anxiety disorder ? Patient is on lorazepam as needed 6. Renal masses ? Not new patient had previously been seen by Dr Ruelas with urology recommended serial follow-up 7. DVT prophylaxis ? Subcu heparin Charges/Coding Visit Charges Inpatient E&M: [id number] Subs Hosp L2
[2025-04-01 07:47] VITALS: BP 145/78; PULSE 65; RESP 18; TEMP 37.2; O2SAT 98
[2025-04-01] MEDS: 0.9% Normal Saline (1000mL) 1,000 ML 100 ML IV (07:54)
--- NOTE | 2025-04-01 08:39 | CON.PCM.SX_ITS ---
Assessment & Plan Assessment/Plan (1) SBO (small bowel obstruction): PLAN: Plan Did review patient's CAT scan personally. Will plan for modified small bowel follow-through today. Continue n.p.o./IV fluids/NG?patient is agreeable to plan. Dr. Fink will be rounding the weekend Kasia Petit M.D. Pager: [phone] [facility] [address] [place] [address], Outpatient Pavilion, [address] [place] [id number] Office: [phone] HPI Consult Data Date of Consult: 04/01/25 HPI Narrative HPI Narrative: MARY GALLEGOS, is a 84 F who presents due to abdominal pain nausea and vomiting. Patient does have a history of previous small bowel obstructions which have resolved conservatively in the past. Last 1 was in July 2024 previous to that was in 2023. Patient had an NG placed in the ER. Currently about 300 cc in the canister. Patient admits to small amount of flatus this a.m. [facility] Medical History (Updated 03/31/25 @ 21:[address] Eran Olson MD) Encounter for general adult medical examination with abnormal findings Polyneuropathy Essential (primary) hypertension CKD (chronic kidney disease) stage 3, GFR 30-59 ml/min Abnormal glucose tolerance test (GTT) Bowel obstruction Chronic GERD Fistula, bladder Carpal tunnel syndrome Paresthesia Anxiety Weight loss Non-smoker Structural abnormality of bladder IBS (irritable bowel syndrome) Elevated blood pressure reading Mass of kidney of unknown nature Stress reaction Sphincter of Oddi dysfunction Hematuria RLS (restless legs syndrome) Back pain Biliary colic Constipation Hx of small bowel obstruction Cholesterolosis Acid reflux Sleep apnea Arthritis History of back problems Home Medications ?Medication ?Instructions ?Recorded ?Last Taken ?Type echinacea 400 mg capsule 400 mg PO DAILY PRN immunity 10/15/18 10/18/18 History multivitamin with minerals 1 ea PO DAILY supp 10/19/18 10/18/18 History ondansetron HCl 4 mg tablet 4 mg PO DAILY PRN nausea a nd 08/04/23 08/03/24 History vomiting famotidine 20 mg tablet (Acid 20 mg PO BID PRN stomach upset 08/03/24 Unknown History Controller) fluticasone propionate 50 1 - 2 spray intranasal DAILY PRN 08/03/24 Unknown History mcg/actuation nasal allergy symptoms spray,suspension (Allergy Relief (fluticasone)) melatonin 5 mg tablet 5 - 10 mg PO DAILY PRN sleep 08/03/24 Unknown History lorazepam 0.5 mg tablet 0.5 mg PO DAILY PRN anxiety #30 02/16/25 Unknown Rx tabs dicyclomine 20 mg tablet 20 mg PO BID abd 03/31/25 Un known History Allergy/AdvReac Type Severity Reaction Status Date / Time Iodinated Contrast Media Allergy Intermediate Hives Verified 03/31/25 17:44 (contrast dye - iodinated) iohexol Allergy Hives Verified 03/31/25 17:44 codeine AdvReac Nausea/Vom/ Verified 03/31/25 17:44 Diarrhea Family History Father Cancer prostate Brother Cancer brain Seizures Mother Colon cancer Surgical History (Updated 03/31/25 @ 20:[address] Isabel Cavazos, DO) History of bowel resection History of colonoscopy (~2018) Hx laparoscopic cholecystectomy History of open sigmoidectomy History of colonoscopy history excision colon polyps History of arthroscopy of left knee Social History household members: none Smoking Status: Never smoker alcohol intake: never substance use type: does not use seatbelt use: always do you feel safe at home: Yes ROS Constitutional Constitutional: Reports anorexia Eyes Eyes: Denies blurry vision ENT HEENT: Denies hearing loss Cardiovascular Cardiovascular: Denies chest pain Respiratory/Chest Respiratory/Chest: Denies cough Gastrointestinal Gastrointestinal: Reports abdominal pain, constipation, nausea and vomiting Genitourinary Genitourinary: Denies hematuria Musculoskeletal Musculoskeletal: Denies joint swelling Integumentary Integumentary: Denies jaundice Neurologic Neurologic: Denies focal weakness Psychiatric Psychiatric: Reports anxiety Endocrine Endocrinology: Denies palpitations Hematologic/Lymphatic Hematologic/Lymphatic: Denies easy bleeding Physical Exam Narrative NG in place left nostril Const alert, oriented x3 and no apparent distress HEENT normocephalic and head/scalp atraumatic Resp normal respiratory effort Cardio regular rate GI soft to palpation and non-distended Inspection: abdominal distention Palpation: tender Positive for other (Mild bilateral lower quadrants); Negative for guarding Extremity no clubbing, cyanosis or edema Neuro CN's II-XII intact bilaterally Psych mental status grossly normal Lab / Micro Data 04/01/25 03:08 04/01/25 03:08 Labs: Laboratory Results - last 24 hr 03/31/25 18:10: WBC 9.6, RBC 4.38, Hgb 13.4, Hct 39.8, MCV 90.9, MCH 30.6, MCHC 33.7, RDW Std Deviation 44.6 H, RDW Coeff of Shira 13.3, Plt Count 215, MPV 9.3, Immature Gran % (Auto) 0.200, Neut % (Auto) 85.5 H, Lymph % (Auto) 9.1 L, [place] % (Auto) 5.1, Eos % (Auto) 0.0, Baso % (Auto) 0.1, Absolute Neuts (auto) 8.2 H, Absolute Lymphs (auto) 0.88, Nucleated RBC % 0, Sodium Cancelled, Potassium Cancelled, Chloride Cancelled, Carbon Dioxide Cancelled, Anion Gap Cancelled, BUN Cancelled, Creatinine Cancelled, Est GFR (MDRD) Non-Af Cancelled, BUN/Creatinine Ratio Cancelled, Glucose Cancelled, Calcium Cancelled, Total Bilirubin Cancelled, AST Cancelled, ALT Cancelled, Alkaline Phosphatase Cancelled, Total Protein Cancelled, Albumin Cancelled, Globulin Cancelled, Albumin/Globulin Ratio Cancelled, Lipase 38 03/31/25 18:47: Sodium 138, Potassium 3.8, Chloride 102, Carbon Dioxide 23.1, Anion Gap 13, BUN 26 H, Creatinine 0.80, Estim Creat Clear Calc 45.02 L, Est GFR (MDRD) Non-Af 73, BUN/Creatinine Ratio 32.3 H, Glucose 113 H, Calcium 9.0, Total Bilirubin 0.84, AST 34 H, ALT 14, Alkaline Phosphatase 53, Total Protein 6.8, Albumin 4.1, Globulin 2.8, Albumin/Globulin Ratio 1.5 03/31/25 19:29: Urine Color Yellow, Urine Clarity Sl. Cloudy, Urine pH 6.0, Ur Specific [place] 1.025, Urine Protein 100 H, Urine Glucose (UA) Normal, Urine Ketones 150 A*, Urine Occult Blood 150 H, Urine Nitrite Negative, Urine Bilirubin 1 H, Urine Urobilinogen 1 H, Ur Leukocyte Esterase 100 H, Urine RBC 25-50 SEEN, Urine WBC 50-100 SEEN, Ur Squamous Epith Cells 0-5 SEEN, Urine Bacteria 0 SEEN, Urine Mucus 1+ 04/01/25 03:08: WBC 6.4, RBC 3.82 L, Hgb 11.7 L, Hct 35.4 L, MCV 92.7, MCH 30.6, MCHC 33.1, RDW Std Deviation 45.9 H, RDW Coeff of Shira 13.6, Plt Count 205, MPV 10.0, Immature Gran % (Auto) 0.300, Neut % (Auto) 78.7 H, Lymph % (Auto) 12.3 L, [place] % (Auto) 8.5, Eos % (Auto) 0.0, Baso % (Auto) 0.2, Absolute Neuts (auto) 5.0, Absolute Lymphs (auto) 0.78 L, Nucleated RBC % 0, Sodium 136, Potassium 4.0, Chloride 105, Carbon Dioxide 24.9, Anion Gap 7, BUN 27 H, Creatinine 0.73, Estim Creat Clear Calc 43.80 L, Est GFR (MDRD) Non-Af 81, BUN/Creatinine Ratio 37.3 H, Glucose 120 H, Calcium 8.7, Phosphorus 3.4, Magnesium 2.2 Micro: Microbiology 03/31/25 18:15 Mucosa - Nose SARS-CoV-2, Influenza & RSV (PCR) - Final Imaging Radiology Impression Abdomen/Pelvis CT 03/31/25 18:30 IMPRESSION: 1. Lack of contrast limits evaluation. When compared to CT abdomen/pelvis 08/03/2024, persistent dilated loops of fluid-filled small bowel measuring up to 4.4 cm and concerning for small bowel obstruction. 2. Persistent pneumobilia is nonspecific but may be iatrogenic in origin. 3. Bilateral hypodense cortical renal lesions which may reflect proteinaceous or hemorrhagic cysts. If not already evaluated, an MRI of the kidneys may be obtained for further evaluation. Reading Location: [facility] X[facility] 03/31/25 20:30 IMPRESSION: A nasogastric tube extends below the diaphragm with tip in the left upper quadrant at the region of the stomach. No pneumothorax. Reading Location: [facility] 04/01/25 06:10 IMPRESSION: Paucity of bowel gas which may be seen in the setting of bowel obstruction. No radiographic evidence for distended loops of bowel or air-fluid levels. Enteric feeding tube extends to the region of the stomach. Reading Location: [facility] Charges/Coding Multi Select Codes Visit Charges Visit Charges: 18424 Init Hosp L3
--- NOTE | 2025-04-01 09:15 | RAD_ITS ---
PROCEDURE: SMALL BOWEL SERIES ONLY 04/01/2025 REASON FOR EXAM: SBO-GASTROGRAFIN TECHNIQUE: SMALL BOWEL SERIES ONLY FLUOROGRAPHIC IMAGES: 3 COMPARISON: [facility] dated 04/01/2025. CT abdomen pelvis dated 03/31/2025 FINDINGS: [employer]ogenic Transport Driver Image: Non-obstructed bowel gas pattern. No significant retained colonic stool. Paucity of bowel gas in the distal colon and rectum. Colon: The colon is well-distended and is normal in course and caliber. No strictures, large polyps, or diverticuli are identified. Terminal Ileum: Unremarkable. At 1 hour, the contrast advanced into the distal ileum. At 3 hour, sigmoid colon contrast opacification is noted. Patient also had a bowel movement at this time. RAD/Small Bowel Series Only IMPRESSION: At 3 hour, sigmoid colon contrast opacification is noted. Patient also had a b owel movement at this time. This effectively rules out high-grade bowel obstruction. Reading Location: [facility]
[2025-04-01 14:00] VITALS: BP 145/78; PULSE 79; RESP 16; TEMP 37.2; O2SAT 94; O2SAT 96
--- NOTE | 2025-04-01 15:19 | CASEMGMT ---
Dx:SBO LACE:2 6-Clicks:23 Medical record reviewed and patient evaluated for identification of discharge planning needs. Based on this review, at this time criteria are not present to indicate a need for discharge planning. Will remain available to assist with discharge planning needs as identified or requested. Pt with NG in and OR following.
[2025-04-01 20:27] VITALS: BP 143/67; PULSE 62; RESP 18; TEMP 37.1; O2SAT 96
[2025-04-01] MEDS: Heparin Injection (Vial) 5,000 UNIT/ML VIAL 5000 UNIT SC (22:18)
[2025-04-02] MEDS: 0.9% Normal Saline (1000mL) 1,000 ML 100 ML IV (02:45)
[2025-04-02 02:46] VITALS: BP 145/76; PULSE 59; RESP 16; TEMP 36.9; O2SAT 98
[2025-04-02 05:05] LABS: Hematocrit 29.8 % (37-47); Hemoglobin 10.0 g/dL (12.0-15.0); Immature Granulocytes Count 0.010 X10^3/uL (0.0-0.0); Mean Corp Hgb Conc 33.6 g/dL (32-36); Mean Corpuscular Volume 92.5 fL (81-99); Mean Platelet Vol. 9.4 fl (6.2-12.0); NRBC Flagged by Analyzer 0 % (0-5); Platelet Count 161 K/mm3 (150-450); RBC Distribution Width CV 13.4 % (11.6-14.6); RBC Distribution Width SD 45.7 fl (35.1-43.9); Red Blood Count 3.22 M/mm3 (4.2-5.4); White Blood Count 4.5 K/mm3 (4.4-11.0)
[2025-04-02 05:43] LABS: Anion Gap 7 (7-18); BUN 23 mg/dL (4-19); BUN/Creat Ratio 36.4 RATIO (10-20); Calcium,Total 8.1 mg/dL (7.6-11.0); Carbon Dioxide 25.1 mmol/L (20.0-29.0); Chloride 107 mmol/L (96-106); Estimated Creatinine Clearance 43.80 ml/min (50-250); Glucose 94 mg/dL (70-99); Magnesium 2.1 mg/dL (1.5-2.2); Potassium 3.5 mmol/L (3.5-5.1)
--- NOTE | 2025-04-02 07:53 | DS.PCM_ITS ---
Providers Date of Admission: 03/31/25 Date of Discharge: 04/02/25 Primary Care Physician: Dr. Andria Narayan, DO Consultations 03/31/25 21:39 Consult: General Surgery Routine Consulting Provider: Kasia Petit Reason for Consult: Small bowel obstruction EMERGENT Consult: Yes MD Notified: Yes Date Notified: 03/31/25 Time Notified: 21:39 Method of Notification: ED Physician Initiated Reason For Visit: SMALL BOWEL OBSTRUCTION Diagnosis Discharge Diagnosis (1) SBO (small bowel obstruction): Status: Acute Code(s): K56.609 - Unspecified intestinal obstruction, unspecified as to partial versus complete obstruction Plan Patient is an 84-year-old lady with previous abdominal surgery (sigmoidectomy for volvulus, cholecystectomy and excision of colonic polyps) who presented with abdominal pain with associated nausea and generalized weakness. Imaging studies came back consistent with Small bowel obstruction admitted to regular nursing floor for further management 1. Small bowel obstruction ? Suspected to be secondary to adhesions following patient previous surgery. CT of the abdomen and pelvis persistent dilated loops of fluid-filled small bowel measuring up to 4.4 cm and concerning for small bowel obstruction. Patient admitted to regular nursing floor conservative management with bowel rest, NG tube to suction pain medication and antinausea medication initiated consult was placed to general surgery?Dr. Arvizu 2. Acute complicated urinary tract infection ? Patient started on ceftriaxone ? 04/02/2025; patient was discharged on cefdinir 3. Obstructive sleep apnea -PAP therapy encouraged 4. Allergic rhinitis ? Patient was on fluticasone did continue 5. Anxiety disorder ? Patient is on lorazepam as needed 6. Renal masses ? Not new patient had previously been seen by Dr Ruelas with urology recommended serial follow-up 7. DVT prophylaxis ? Subcu heparin 8. Hypophosphatemia corrected per protocol Medications at Discharge Home Medications echinacea 400 mg capsule 400 mg PO DAILY PRN immunity 10/15/18 multivitamin with minerals 1 ea PO DAILY supp 10/19/18 ondansetron HCl 4 mg tablet 4 mg PO DAILY PRN nausea and vomiting 08/04/23 famotidine 20 mg tablet (Acid Controller) 20 mg PO BID PRN stomach upset 08/03/24 fluticasone propionate 50 mcg/actuation nasal spray,suspension (Allergy Relief (fluticasone)) 1 - 2 spray intranasal DAILY PRN allergy symptoms 08/03/24 melatonin 5 mg tablet 5 - 10 mg PO DAILY PRN sleep 08/03/24 lorazepam 0.5 mg tablet 0.5 mg PO DAILY PRN anxiety #30 tabs 02/16/25 dicyclomine 20 mg tablet 20 mg PO BID abd 03/31/25 cefdinir 300 mg capsule 300 mg PO BID #10 caps 04/02/25 docusate sodium 100 mg capsule 100 mg PO DAILY 60 days #60 caps 04/02/25 potassium, sodium phosphates 280 mg-160 mg-250 mg oral powder packet 1 packet PO BID #100 ea 04/02/25 Hospital Course Summary of Care Provided Minutes Spent on Discharge: 32 Physical Exam Narrative GENERAL: cooperative HEENT: Atraumatic; normocephalic, NG tube in place EYES; Anicteric, Normal Conjunctiva NECK; supple, normal thyroid, RESPIRATORY: Diminished to auscultation CARDIOVASCULAR: Regular S1 S2, GI: soft, nondistended hypoactive bowel sounds : No Renal angle tenderness; EXTREMITIES: No edema, no clubbing, MUSCULOSKELETAL: no muscle wasting NEURO: Awake; no lateralizing signs. SKIN: No Rash PSYCH; Flat affect Medical Records Data Medical Nutrition Assessment Dietitian: Malnutrition Criteria Met Start: 04/01/25 13:02 Freq: Status: Active Protocol: Document 04/01/25 13:02 [facility] (Rec: 04/01/25 13:02 [facility] [id number]) Nutrition Malnutrition Evidence of Yes Malnutrition Exists Malnutrition (severe Chronic ): Evidenced By Suboptimal Energy Intake (Severe),Weight Loss (Severe) Clinical Problem Chronic Disease or Condition Related Malnutrition Etiology related to depression following of and more recently recurrent SBO causing inadequate energy intake Signs/Symptoms as evidenced by 8.5% unplanned wt loss and po intake meeting < 75% of estimated nutritional needs x 8 months Status Active Problem Recommendation Dietitian As medically able, rec PATEL to Transitional w/ goal of Recommendations/ liberal regular diet d/t signs and symptoms of Changes malnutrition As medically able, rec 120 ml EPHP tid w/ medpass for increased nutrition if consumed Will continue to follow and monitor for changes in pt nutritional status and make additional rec as indicated . Weight / BMI Weight Weight: 53 kg Body Mass Index (BMI) 19.1 ABG / Lab / Microbiology Data 04/02/25 04:50 04/02/25 04:50 Laboratory: Laboratory Results - last 24 hr 12/27/25 04:50: WBC 4.5, RBC 3.22 L, Hgb 10.0 L, Hct 29.8 L, MCV 92.5, MCH 31.1, MCHC 33.6, RDW Std Deviation 45.7 H, RDW Coeff of Shira 13.4, Plt Count 161, MPV 9.4, Immature Gran % (Auto) 0.200, Neut % (Auto) 55.9, Lymph % (Auto) 31.6, [place] % (Auto) 9.0, Eos % (Auto) 3.1, Baso % (Auto) 0.2, Absolute Neuts (auto) 2.5, Absolute Lymphs (auto) 1.41, Nucleated RBC % 0, Sodium 140, Potassium 3.5, C hloride 107 H, Carbon Dioxide 25.1, Anion Gap 7, BUN 23 H, Creatinine 0.64 L, E stim Creat Clear Calc 43.80 L, Est GFR (MDRD) Non-Af 87, BUN/Creatinine Ratio 36.4 H, Glucose 94, Calcium 8.1, Phosphorus 2.0 L, Magnesium 2.1 Microbiology: Microbiology 03/31/25 18:15 Mucosa - Nose SARS-CoV-2, Influenza & RSV (PCR) - Final Radiography Diagnostic Testing: Radiology Impression [facility] X-Ray 04/01/25 06:10 IMPRESSION: Paucity of bowel gas which may be seen in the setting of bowel obstruction. No radiographic evidence for distended loops of bowel or air-fluid levels. Enteric feeding tube extends to the region of the stomach. Reading Location: [id number] Small Bowel X-Ray 04/01/25 09:15 IMPRESSION: At 3 hour, sigmoid colon contrast opacification is noted. Patient also had a bowel movement at this time. This effectively rules out high-grade bowel obstruction. Reading Location: [facility] Instructions DC O2, CPAP, BIPAP Needs Home O2 Discharge instructions: No Patient's Goals Of Care - F/U Goals Reviewed Goals of care reviewed with patient: Yes - No change Meaningful Use Info Meaningful Use Meaningful Use Diagnoses (Choose all that apply): None applicable Discharge Plan Admission Admit Date/Time: 03/31/25 20:37 Attending Provider: Tae Chopra Primary Care Provider: Andria Narayan Consulting Providers: Kasia Petit; Eran Olson Discharge Orders/Prescriptions Prescriptions: New docusate sodium 100 mg Capsule 100 mg PO DAILY 60 Days Qty: 60 0RF potassium, sodium phosphates 280-160-250 mg Powder In Packet 1 packet PO BID Qty: 100 0RF cefdinir 300 mg capsule 300 mg PO BID Qty: 10 0RF Continued echinacea 400 mg capsule 400 mg PO DAILY PRN (Reason: immunity) Patient Comments: PRN WHEN SICK ondansetron HCl 4 mg tablet 4 mg PO DAILY PRN (Reason: nausea and vomiting) lorazepam 0.5 mg tablet 0.5 mg PO DAILY PRN (Reason: anxiety) Qty: 30 0RF multivitamin with minerals 1 EACH tablet 1 ea PO DAILY melatonin 5 mg tablet 5 - 10 mg PO DAILY PRN (Reason: sleep) famotidine [Acid Controller] 20 mg tablet 20 mg PO BID PRN (Reason: stomach upset) fluticasone propionate [Allergy Relief (fluticasone)] 50 mcg/actuation spray,suspension 1 - 2 spray intranasal DAILY PRN (Reason: allergy symptoms) Rx Instructions: administer into each nostril dicyclomine 20 mg tablet 20 mg PO BID Referrals / Follow Up: Andria Narayan DO [Primary Care Provider, Internal Medicine] Disposition Disposition (needs filled in before D/C Order can be placed): Home, Self Care Charges/Coding Visit Charges Inpatient E&M: 45356 Disch Hosp >30min
[2025-04-02 08:30] VITALS: BP 151/83; PULSE 70; RESP 18; TEMP 36.8; O2SAT 99
[2025-04-02] MEDS: Na Biphos/Potassium Phosphate PACKET 1 PACKET PO (10:18)
--- NOTE | 2025-04-02 12:26 | PCM.PN.SRG ---
Subjective Subjective Patient seen and examined on rounds this morning just prior to discharge home. Her small bowel follow-through study yesterday was unremarkable. She has been tolerating diet without difficulty. Objective Data Objective Data Vital Signs: Vital Signs Temp Pulse Resp BP Pulse Ox O2 Del Method 98.2 F 70 18 151/83 H 99 Room Air 04/02/25 08:30 04/02/25 08:30 04/02/25 08:30 04/02/25 08:30 04/02/25 08:30 04/02/25 08:30 Oxygen Delivery Method Room Air Weight: 116 lb 13.52 oz Body Mass Index (BMI) 19.1 Intake & Output: Intake and Output for Last 24 Hours 03/31/25 04/01/25 04/02/25 23:59 23:59 23:59 Intake Total 1100 / 1130 2585 / 2835 1316.67 / 1316.67 Balance 1100 / 1130 2585 / 2835 1316.67 / 1316.67 Lab / Micro Data 04/02/25 04:50 04/02/25 04:50 Labs: Laboratory Results - last 24 hr 04/02/25 04:50: WBC 4.5, RBC 3.22 L, Hgb 10.0 L, Hct 29.8 L, MCV 92.5, MCH 31.1, MCHC 33.6, RDW Std Deviation 45.7 H, RDW Coeff of Shira 13.4, Plt Count 161, MPV 9.4, Immature Gran % (Auto) 0.200, Neut % (Auto) 55.9, Lymph % (Auto) 31.6, [place] % (Auto) 9.0, Eos % (Auto) 3.1, Baso % (Auto) 0.2, Absolute Neuts (auto) 2.5, Absolute Lymphs (auto) 1.41, Nucleated RBC % 0, Sodium 140, Potassium 3.5, Chloride 107 H, Carbon Dioxide 25.1, Anion Gap 7, BUN 23 H, Creatinine 0.64 L, Estim Creat Clear Calc 43.80 L, Est GFR (MDRD) Non-Af 87, BUN/Creatinine Ratio 36.4 H, Glucose 94, Calcium 8.1, Phosphorus 2.0 L, Magnesium 2.1 Micro: Microbiology 03/31/25 18:15 Mucosa - Nose SARS-CoV-2, Influenza & RSV (PCR) - Final Radiography Diagnostic Testing: Radiology Impression Small Bowel X-Ray 04/01/25 09:15 IMPRESSION: At 3 hour, sigmoid colon contrast opacification is noted. Patient also had a bowel movement at this time. This effectively rules out high-grade bowel obstruction. Reading Location: [facility] Physical Exam Narrative She is alert and oriented x 3. She is in no acute distress. Abdomen is soft nontender nondistended Assessment & Plan Assessment/Plan (1) SBO (small bowel obstruction): PLAN: Plan The patient is an 84-year-old female admitted with small bowel obstruction. She has a history of small bowel obstructions likely secondary to adhesions from multiple prior surgeries. Patient is clinically doing well. Small bowel obstruction seems to have resolved Okay to discharge home from a surgical standpoint. Charges/Coding Visit Charges Inpatient E&M: 29777 Subs Hosp L2
== END 2025-04-02 11:58 | disposition home or self-care (01) | DRG 388 ==
LOC: ED 20:24 → MS3 20:42
PROVIDERS: Admitting Provider Internal Medicine; Emergency Provider Emergency Medicine; PCP Internal Medicine; Visit Provider Internal Medicine
DX: K56.50 Intestinal adhesions [bands], unspecified as to partial versus complete obstruction (principal); E43 Unspecified severe protein-calorie malnutrition; N39.0 Urinary tract infection, site not specified; E83.39 Other disorders of phosphorus metabolism; K83.8 Other specified diseases of biliary tract; N18.31 Chronic kidney disease, stage 3a; I12.9 Hypertensive chronic kidney disease with stage 1 through stage 4 chronic kidney disease, or unspecified chronic kidney disease; F41.9 Anxiety disorder, unspecified; K21.9 Gastro-esophageal reflux disease without esophagitis; G47.33 Obstructive sleep apnea (adult) (pediatric); J30.9 Allergic rhinitis, unspecified; N28.89 Other specified disorders of kidney and ureter; Z79.899 Other long term (current) drug therapy; Z90.49 Acquired absence of other specified parts of digestive tract; Z79.51 Long term (current) use of inhaled steroids; Z68.20 Body mass index [BMI] 20.0-20.9, adult
CPT/HCPCS: 36415; 74018; 74176; 74250; 80048; 80053; 81001; 83690; 83735; 84100; 85025; 87631; 97802; 99283; A4216; J2405